=== PATIENT | female | born 1985 | race Caucasian/White ===

== ENCOUNTER 2022-12-28 09:50 | Outpatient (OUT) | payer OTHER, SELFPAY ==
--- NOTE | 2022-12-28 09:53 | US_ITS ---
[address] [address] Patient Name: LARRY COLON MRN: [id number] date: 1985 Sex: F Assigned Patient Location: US Current Patient Location: US Accession/Order Number: [id number] Exam Date: 12/28/2022 09:55 Report Date: 12/28/2022 15:07 At the request of: ISSAC ANN Procedure: US OB >= 14 weeks Fetus EXAMINATION: US OB >= 14 weeks Fetus HISTORY: MISSED MENSES COMPARISON: No relevant comparison available. TECHNIQUE: Transabdominal sonographic examination was performed for obstetrical and evaluation. FINDINGS: Number: 1 Heart Rate: 153.0 bpm H.B. /min Amniotic Fluid Volume: Subjectively normal Placental Location: Anterior Cervix Length: Not measured BIOMETRY: BPD: 5.2 cm 21 weeks 5 days 21 weeks 5 days HC: 19.5 cm 21 weeks 5 days, 21 weeks 5 days AC: 18.2 cm 23 weeks 0 days, 23 weeks 0 days FL: 3.6 cm 21 weeks 4 days , 21 weeks 4 days EFW:489.3 grams; 1 lb. 1 oz. is FL/AC: 20.1 FL/BPD: 70.3 HC/AC: 1.1 GESTATIONAL AGE: Age by EDC: Unknown Age by current US: 22 weeks 0 days PORTILLO by current US: 05/03/2023 PORTILLO by EDC: Unknown US/US OB >= 14 weeks Fetus IMPRESSION: Viable gomez intrauterine gestation measuring 22 weeks 0 days *Reference: [facility] Practice Guideline for the performance of Obstetric Ultrasound Examinations, November 11, 2006. Electronically authenticated by: QUENTIN SOLOMON Date: 12/28/2022 15:07
--- OUTSIDE RECORDS SUMMARY | 2023-03-28 07:57 | XMS_ITS | CCD ---
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 Name Role Phone Nikki Mcgovern Primary Care Provider NIKKI MCGOVERN Primary Care Unavailabl e Nikki Mcgovern PA-C Primary Care Provider Nikki Mcgovern PA-C Primary Care Provider NIKKI MCGOVERN Primary Care Unavailabl e PENNY RITTER Attending Unavailable LILIANA CARROLL Referring Unavail able NIKKI MCGOVERN Primary Care Unavailabl e NIKKI MCGOVERN Primary Care Unavailabl e SULEMA TERAN Attending Unavailable NIKKI MCGOVERN Primary Care Unavailabl e NIKKI MCGOVERN Primary Care Unavailabl e SULEMA TERAN Attending Unavailable NIKKI MCGOVERN Primary Care Physician Yennifer vailable NIKKI MCGOVERN Primary Care Unavailabl e Jose F ANN R Referring Unavailable Jose F ANN R Attending Unavailable Jose F ANN R Admitting Unavailable Jose F ANN R Admitting Unavailable NIKKI MCGOVERN Primary Care Unavailabl e Jose F ANN R Attending Unavailable Jose F ANN R Admitting Unavailable NIKKI MCGOVERN Primary Care Unavailabl e Padmini ANNy R Attending Unavailable DONNELL FINCH Attending Unavailable JOSE F ANN Attending Unavailable JOSE F ANN Attending Unavailable Unavailable Primary Care Provider Unavailabl e SETH, JOSE F R Referring Unavailable Allergies Allergy Classification Reported Allergen(s) Allergy Type Date of Onset Reaction(s) Facility (4 sources) Acetaminophen / oxyCODONE; Translations: [OXYCODONE-ACETAM INOPHEN] Drug Allergy 2 Nausea And Vomiting, Headache [facility] Phone: (4 sources) traMADol; Translations: [TRAMADOL] Drug Allergy 2 [facility] Phone: (1 source) No Known Medication Allergies; Translations: [No Known Medication Allergies] Propensity to adverse reactions (disorder) [facility] Repository Medications Current Medications Medication Drug Class(es) [...] Pain - Moderate, 30 tab(s), Refill(s) 0, [facility] Start Date: 01/22/17 Status: Ordered albuterol HFA [...] BID, # 60 cap(s), Refills(s) 0, Pharmacy: [facility] 5526 Start Date: 01/22/17 Status: Ordered Ethinyl Estradiol [...] Refill(s) 5, Start 3 weeks after delivery, [facility] 530 Start Date: 01/22/17 Status: Ordered 2 ml [...] 20 tab(s), Refills(s) 0, Pharmacy: [facility] Start Date: 04/30/17 Status: Ordered Start: 01-22-2017 take 1 tablet by mario th every eight hours as needed for pain ibuprofen 800 mg Tab 800 mg = 1 tab(s), Oral, q8hr, PRN Pain - Mild, # 40 tab(s), Refills(s) 0, Pharmacy: [facility] 5309 Start Date: 01/22/17 Status: Ordered [...] 0 03/29/2022 04/28/2022 Active Start: 12-15-2021 End: 12-04-2022 take 1 tablet by mouth three times [...] sources) Polyene Antifungal Start: 10-28-2021 nystatin (MYCOSTATIN) 580784 UNIT/GM powder Apply topically 2 times daily [...] Give after delivery of placenta. Prenat w/o B-DxByr-MHE-FA-DHA (PRENAISSANCE PLUS) 28-1-250 MG CAPS (4 sources) Start: 06-03-2019 take 1 tablet by mouth once daily Prenat w/o C-HwZmj-SED-FA-DHA (PRENAISSANCE PLUS) 28-1-250 MG CAPS Take 1 tablet by mouth daily 30 capsule 06/03/2019 Suspended Start: 06-03-2019 take 1 tablet by mario th once daily Prenat w/o G-AyQya-GOG-FA-DHA (PRENAISSANCE PLUS) 28-1-250 MG CAPS Take 1 tablet by mouth daily 30 capsule 06/03/2019 Active Vit-Fe Fumarate-FA ( VITAMIN) 27-0.8 [...] tablet 3 04/09/2017 09/30/2018 Discontinued (LIST CLEANUP) Hg-F1-M09H19-ZW-Fboekn (PRENATE AM PO) (1 source) End: 09-30-2018 Lz-I2-Y68Z77-DR-Wmmppm (PRENATE AM PO) Take by mouth 0 09/30/2018 Discontinued (LIST CLEANUP) Multivitamins with Folic Acid 1 mg oral tablet (3 sources) Start: 07-26-2016 Multivitamins with Folic Acid 1 mg oral tablet 1 tab(s), Oral, Daily, 100 tab(s), Refill(s) 0, [facility] Start Date: 07/26/16 Status: Ordered [...] trimester] Onset: 01-09-2022 Resolved: 04-09-2022 11-02-2019 Episodic Other screening for suspected conditions (not mental disorders or infectious disease) (1 source) Encounter for other specified screening; Translations: [Encounter for other specified screening] Onset: 03-21-2023 Episodic Residual codes; unclassified (16 sources) Sleep [...] ANN FINAL REPORT Dictated: 01/30/2023 1:09 pm Signer Vitor TONEY Signed (Electronic Signature): 01/30/2023 1:09 pm Signed by: Signer Vitor TONEY Transcribed by: GERTRUDE Technologist: VIK Technical Comments [...] Extremities Normal Diaphragm Normal ACI Normal Normal [facility] CHEMISTRYOrdered By: SYSTEM SYSTEM on 01-29-2023 Glucose [Mass/Vol] 157 mg/dL High 55 - 140 mg/dL Remisol Chem Consent for Treatmenton 01-11 Consent for Treatment [id number] .00TIFF [facility] Consent for Treatment [id number] .00TIFF [facility] Gest Scr Glu 1 Hron 01-30-20 23 Glucose [Mass/Vol] 157 mg/dL High 55-140 [facility] Comment on above: Performed By: #### 2 [id number], [id number], 038589103, [id number], 194484164, 137792084, 9358155, 0272379, 9672919 #### [facility] Laboratory [address] [place] [address] Glucose 1h post 50g loadon 1 04-01-2022 Glucose, 1 hr PP 50GM dose 157 [employer] [facility] Physician Orderon 01-29-2023 Physician Order [id number]# 1.00TIFF [facility] Physician Orderon 01-28-2023 Physician Order [id number]#1 .00TIFF Normal [facility] C Urineon 01-13-2023 Bacteria identified [...] Locations R1: This test was performed at: [facility], [address] [place] [address], [address]- , , [facility] Comment on above: Performed By: #### 2 [id number], 80248014, 127119487, 9880716145, 035136874, 144909228, 0568071, 3414298, 4310483 #### [facility] [address] [place] [address] .Interpretation:on HCV Ab IA Ql Comment Invalid Interpretation Code [facility] Comment on above: Result Comment: Not infected with HCV unless early or acute infection is suspected (which may be delayed in an immunocompromised individual), or other evidence exists to indicate HCV infection. Performed at: [facility] [id number] PhD Mariama Zaman Performed By: #### 2 [id number], 41381985, 336613331, 8923340484, 341103017, 764548819, 3454142, 8491070, 7786485 #### [facility] [address] [place] [address] HCV Antibody RFX to Quant PC Johnny 01-12-2023 HCV IgG IA Ql Non-Reactive Invalid Interpretation Code Non Reactive [facility] Comment on above: Result Comment: Perf ormed at: [facility] [address] [id number] PhD Mariama Zaman Performed By: #### 2 [id number], 08698498, 619790407, 4253571724, 065269902, 285637134, 2548712, 5708243, 2650631 #### [facility] [address] [place] [address] HIV Screen 4th Generation wR fxon 01-12-2023 HIV 1+2 Ab+HIV1 p24 Ag IA Ql Non-Reactive Invalid Interpretation Code Non Reactive [facility] Comment on above: Result Comment: HIV Negative HIV-1/HIV-2 antibodies and HIV-1 p24 antigen were NOT detected. There is no laboratory evidence of HIV infection. Performed at: [address] [id number] PhD Mariama Zaman Performed By: #### 2 [id number], 22986477, 140123315, 1417880105, 292667236, 078458709, 7467187, 2278950, 7104505 #### [facility] [address] [place] [address] Hep Bs Agon 01-12-2023 HBV surface Ag IA Ql Negative Invalid Interpretation Code Negative [facility] Comment on above: Result Comment: Perf ormed at: [address] [id number] PhD Mariama Zaman Performed By: #### 2 [id number], 88322584, 877441098, 7730847775, 862029669, 416124790, 1038354, 1387777, 5538100 #### [facility] [address] [place] [address] RPR with Conf Rfxon 01-13-20 23 Reagin Ab RPR Ql (S) Non-Reactive Invalid Interpretation Code Non Reactive [facility] Comment on above: Result Comment: Perf ormed at: [address] [id number] PhD Mariama Zaman Performed By: #### 2 [id number], 27465547, 395615983, 2390470471, 146060173, 963024585, 3640594, 0582462, 1428691 #### [facility] [address] [place] [address] Rubella IgGon 01-12-2023 Rubella virus IgG Qn (S) 5.68 [IU]/mL Invalid Interpretation Code Immune >0.99 [facility] Comment on above: Result Comment: Non- immune <0.90 Equivocal 0.90 - 0.99 Immune >0.99 Performed at: [address] [id number] PhD Mariama Zaman Performed By: #### 2 [id number], 08277247, 854525141, 9360616353, 338651953, 669684011, 1332517, 9455429, 9374579 #### [facility] [address] [place] [address] ABO/Rhon 01-11-2023 ABO/Rh Positive Invalid Interpretation Code [facility] Comment on above: Performed By: #### 2 [id number], 63268469, 964350508, 3209136066, 168574649, 169644025, 1472985, 1721811, 2656870 #### [facility] [address] [place] [address] ABSCon 01-11-2023 ABSC Gel Interp Negative Normal [facility] Comment on above: Performed By: #### 2 242293876, 73651807, 085922801, 2281418529, 795706992, 566615518, 3662291, 0711128, 2785824 #### [facility] [address] [place] [address] BLOOD BANKOrdered By: Dylan Lemons on 01-11-2023 ABO/Rh Interp Positive Invalid Interpretation Code [facility] BB Subsection ABSC Gel Interp Negative (01/11/23 10:00 AM) Normal [facility] BB Subsection CBC w/IndicesOrdered By: López Jorgensen on 01-11-2023 Erythrocyte distribution width (RBC) [Ratio] 13.4 % Normal 10.9-14.2 [facility] [employer] Comment on above: Performed By: #### 2 [id number], 47918475, 349231737, 2914412700, 425123794, 452272294, 7864225, 7386869, 9154419 #### [facility] [address] [place] [address] Hematocrit (Bld) [Volume fraction] 34.4 % [facility] [employer] Comment on above: Performed By: #### 2 [id number], 81976537, 028548098, 0079211568, 675668652, 754095254, 4236090, 3698316, 0093886 #### [facility] [address] [place] [address] Hemoglobin (Bld) [Mass/Vol] 11.7 g/dL [facility] [employer] Comment on above: Performed By: #### 2 [id number], 10380548, 240070967, 8735866360, 569263642, 247263480, 8620166, 3574616, 3402981 #### [facility] [address] [place] [address] MCH (RBC) [Entitic mass] 31.7 pg Normal 27.0-34.0 [facility] [employer] Comment on above: Performed By: #### 2 [id number], 50796154, 601488779, 4479969543, 564260896, 330007210, 1419048, 2618955, 7772446 #### [facility] [address] [place] [address] MCHC (RBC) [Mass/Vol] 33.9 g/dL Normal 31.4-36.0 [facility] [employer] Comment on above: Performed By: #### 2 455596792, 59573809, 828233796, 1803840544, 570503432, 805027868, 3600158, 5282168, 1283548 #### [facility] [address] [place] [address] MCV (RBC) [Entitic vol] 93.3 fL Normal 80.0-100.0 [facility] [employer] Comment on above: Performed By: #### 2 608684948, 29607925, 184283550, 8409580479, 664252615, 776388532, 2908780, 8398215, 0956015 #### [facility] [address] [place] [address] Platelet mean volume (Bld) [Entitic vol] 8.0 fL Normal 6.4-10.8 [facility] [employer] Comment on above: Performed By: #### 2 985929011, 80393503, 965978445, 2778701972, 640091568, 781768570, 6727167, 0001501, 7151699 #### [facility] [address] [place] [address] Platelets (Bld) [#/Vol] 171.0 E9/L Normal 150.0-500.0 [facility] [employer] Comment on above: Performed By: #### 2 288723827, 03010526, 903857187, 8680891572, 256097839, 454342703, 0507258, 0597471, 2340969 #### [facility] [address] [place] [address] RBC (Bld) [#/Vol] 3.7 E12/L Low 4.3-5.9 [facility] [employer] Comment on above: Performed By: #### 2 277409122, 59748914, 169432109, 6348472701, 115431076, 538639156, 5459330, 6307085, 3894885 #### [facility] [address] [place] [address] WBC corrected for nucl RBC Auto (Bld) [#/Vol] 11.7 E9/L High 4.0-11.0 [facility] [employer] Comment on above: Performed By: #### 2 669335530, 63614613, 326048410, 4870804965, 045394976, 149451824, 2179765, 0157417, 2237043 #### [facility] [address] [place] [address] CBC without diffon Platelets (Bld) [#/Vol] 171 10*3/uL [facility] Consent for Treatmenton Consent for Treatment [id number] .00TIFF Normal [facility] HIV 1&2 AB/AG Screen (P24 AG )on 01-11-2023 HIV 1&2 AB/AG Non-Reactive [facility] Hepatitis B surface antigeno n 01-11-2023 Hepatitis B Surface Antigen Negative [facility] Hepatitis C(HCV) Ab w/ Refle x to PCRon 01-11-2023 HCV Ab Ql (S) Non-Reactive [facility] [id number] By: Liliana Dumont on 01-11-2023 HbA1c (Bld) [Mass fraction] 4.9 % Normal <=5.9 [facility] [employer] Comment on above: Performed By: #### 2 [id number], 72529082, 342668142, 7501326310, 116427547, 809368789, 0806897, 0767036, 4957284 #### [facility] [address] [place] [address] No Panel Informationon 01-11 [facility] Physician Orderon 01-11-2023 Physician Order [id number] .00TIFF Normal [facility] Rubella IGG immune statuson 01-11-2023 Rubella immune IgG 5.68 [facility] Syphilis Total(Unknown Syphi lis Status)on 01-11-2023 Syphilis Non-Reactive [facility] TSHon 01-11-2023 Thyroid Stimulating (3Rd Generation) Hormone/ Tsh 1.30 [facility] TSHOrdered By: SYSTEM SYSTEM on 01-11-2023 TSH Qn 1.30 m[IU]/L Normal 0.34-5.60 [facility] Remisol Comment on above: Performed By: #### 2 [id number], 25559844, 693267571, 8393091349, 038995436, 926772577, 1541851, 3914291, 1995183 #### [place] [facility] [address] [place] [address] Type and screenon 01-11-2023 Abo/Rh(D) Positive [employer] Basic Metabolic Panelon 07-13 Calcium [Mass/Vol] 9.1 mg/dL Normal 8.5-9.9 [facility] Comment on above: Performed By: #### C BCWD #### [facility] [address] [place] [address] Chloride [Moles/Vol] 105 mmol/L Normal 95-107 [facility] Comment on above: Performed By: #### C BCWD #### [facility] [address] [place] [address] CO2 [Moles/Vol] 22 mmol/L Normal 20-31 [facility] Comment on above: Performed By: #### C BCWD #### [facility] [address] [place] [address] Creatinine [Mass/Vol] 0.59 mg/dL Normal 0.50-0.90 [facility] Comment on above: Performed By: #### C BCWD #### [facility] [address] [place] [address] GFR >60.0 Normal >60 [facility] Comment on above: Result Comment: Christina [...] secretion. Performed By: #### C BCWD #### [facility] [address] [place] [address] Glucose [Mass/Vol] 110 mg/dL Critically high 70-99 M [facility] Comment on above: Performed By: #### C BCWD #### [facility] [address] [place] [address] Potassium [Moles/Vol] 4.0 mmol/L Normal 3.4-4.9 [facility] Comment on above: Performed By: #### C BCWD #### [facility] [address] [place] [address] Sodium [Moles/Vol] 139 mmol/L Normal 135-144 [facility] Comment on above: Performed By: #### C BCWD #### [facility] [address] [place] [address] Urea nitrogen [Mass/Vol] 12 mg/dL Normal 6-20 [facility] Comment on above: Performed By: #### C BCWD #### [facility] [address] [place] [address] Anion gap [Moles/Vol] 12 mmol/L Normal 9-15 [facility] Comment on above: Performed By: #### C BCWD #### [facility] [address] [place] [address] CBC With Platelet and Differ entialon 07-31-2022 Abs Imm Granulocytes 0.0 K/uL Normal [facility] Comment on above: Performed By: #### C BCWD #### [facility] [address] [place] [address] Basophils (Bld) [#/Vol] 0.0 10*3/uL Normal 0.0-0.1 [facility] Comment on above: Performed By: #### C BCWD #### [facility] [address] [place] [address] Basophils/100 WBC (Bld) 0.4 % Normal 0.1-1.2 [facility] Comment on above: Performed By: #### C BCWD #### [facility] [address] [place] [address] Eosinophils (Bld) [#/Vol] 0.2 10*3/uL Normal 0.0-0.4 [facility] Comment on above: Performed By: #### C BCWD #### [facility] [address] [place] [address] Eosinophils/100 WBC (Bld) 2.6 % Normal 0.7-5.8 [facility] Comment on above: Performed By: #### C BCWD #### [facility] [address] [place] [address] Erythrocyte distribution width (RBC) [Ratio] 12.6 % Normal 11.7-14.4 [facility] Comment on above: Performed By: #### C BCWD #### [facility] [address] [place] [address] Hematocrit (Bld) [Volume fraction] 39.6 % Normal 37.0-47.0 [facility] Comment on above: Performed By: #### C BCWD #### [facility] [address] [place] [address] Hemoglobin (Bld) [Mass/Vol] 13.5 g/dL Normal 11.2-15.7 [facility] Comment on above: Performed By: #### C BCWD #### [facility] [address] [place] [address] Imm Granulocytes 0.3 % Normal [facility] Comment on above: Performed By: #### C BCWD #### [facility] [address] [place] [address] Lymphocytes (Bld) [#/Vol] 1.8 10*3/uL Normal 1.2-3.7 [facility] Comment on above: Performed By: #### C BCWD #### [facility] [address] [place] [address] Lymphocytes/100 WBC (Bld) 25.0 % Normal [facility] Comment on above: Performed By: #### C BCWD #### [facility] [address] [place] [address] MCH (RBC) [Entitic mass] 31.9 pg Normal 25.6-32.2 [facility] Comment on above: Performed By: #### C BCWD #### [facility] [address] [place] [address] MCHC 34.1 % Normal 32.2-35.5 [facility] Comment on above: Performed By: #### C BCWD #### [facility] [address] [place] [address] MCV (RBC) [Entitic vol] 93.6 fL Normal 79.4-94.8 [facility] Comment on above: Performed By: #### C BCWD #### [facility] [address] [place] [address] Monocytes (Bld) [#/Vol] 0.4 10*3/uL Normal 0.2-0.9 [facility] Comment on above: Performed By: #### C BCWD #### [facility] [address] [place] [address] Monocytes/100 WBC (Bld) 5.7 % Normal 4.7-12.5 [facility] Comment on above: Performed By: #### C BCWD #### [facility] [address] [place] [address] Neutrophils (Bld) [#/Vol] 4.9 10*3/uL Normal 1.6-6.1 [facility] Comment on above: Performed By: #### C BCWD #### [facility] [address] [place] [address] Neutrophils/100 WBC (Bld) 66.0 % Normal 34.0-71.1 [facility] Comment on above: Performed By: #### C BCWD #### [facility] [address] [place] [address] Platelets (Bld) [#/Vol] 193 10*3/uL Normal 182-369 [facility] Comment on above: Performed By: #### C BCWD #### [facility] [address] [place] [address] RBC (Bld) [#/Vol] 4.23 10*6/uL Normal 3.93-5.22 [facility] Comment on above: Performed By: #### C BCWD #### [facility] [address] [place] [address] WBC (Bld) [#/Vol] 7.4 10*3/uL Normal 4.0-10.0 [facility] Comment on above: Performed By: #### C BCWD #### [facility] [address] [place] [address] UR HCG Qualitativeon 023 Beta HCG ( test) Ql (U) Negative Normal Detects [facility] Comment on above: Performed By: #### C BCWD #### [facility] [address] [place] [address] Urinalysis, reflex to cultur minoo 07-31-2022 Urine Reflexed to Culture Not Indicated Normal [facility] Comment on above: Performed By: #### U AR #### [facility] [address] [place] [address] Bilirubin Ql (U) Negative Normal Negative [facility] Comment on above: Performed By: #### U AR #### [facility] [address] [place] [address] Clarity (U) Clear Normal Clear [facility] Comment on above: Performed By: #### U AR #### [facility] [address] [place] [address] Color (U) Yellow Normal Straw/[place] [facility] Comment on above: Performed By: #### U AR #### [facility] [address] [place] [address] Glucose Ql (U) Negative Normal Negative [facility] Comment on above: Performed By: #### U AR #### [facility] [address] [place] [address] Hemoglobin Ql (U) Large Normal Negative [facility] Comment on above: Performed By: #### U AR #### [facility] [address] [place] [address] Ketones Ql (U) Negative Normal Negative [facility] Comment on above: Performed By: #### U AR #### [facility] [address] [place] [address] Leukocyte esterase Test strip Ql (U) Negative Normal Negative [facility] Comment on above: Performed By: #### U AR #### [facility] [address] [place] [address] Nitrite Ql (U) Negative Normal Negative [facility] Comment on above: Performed By: #### U AR #### [facility] [address] [place] [address] pH (U) 5.5 [pH] Normal 5.0-9.0 [facility] Comment on above: Performed By: #### U AR #### [facility] [address] [place] [address] Protein Ql (U) Negative Normal Negative [facility] Comment on above: Performed By: #### U AR #### [facility] [address] [place] [address] Specific gravity (U) [Rel density] 1.015 Normal 1.005-1.03 [facility] Comment on above: Performed By: #### U AR #### [facility] [address] [place] [address] Urobilinogen Qn (U) 0.2 {Ginger'U}/dL Normal < 2.0 [facility] Comment on above: Performed By: #### U AR #### [facility] [address] [place] [address] Urine Microscopicon 08-01-19 23 Epithelial cells LM Ql (Urine sed) 3-5 Normal [facility] Comment on above: Performed By: #### U KAREEM #### [facility] [address] [place] [address] Urine Bacteria FEW Abnormal Negative [facility] Comment on above: Performed By: #### U KAREEM #### [facility] [address] [place] [address] Urine RBC 5-10 Abnormal 0-2 [facility] Comment on above: Performed By: #### U KAREEM #### [facility] [address] [place] [address] Urine WBC 0-2 Normal 0-5 [facility] Comment on above: Performed By: #### U KAREEM #### [facility] [address] [place] [address] Culture, Throaton 04-11-2022 Culture, Throat ORDER#: [id number] ORDERED BY: LILIANA CARROLL SOURCE: Throat Throat COLLECTED: 04/11/22 17:53 ANTIBIOTICS AT [place].: RECEIVED : 04/11/22 21:00 Culture, Throat FINAL 04/14/22 10:27 Cult,Throat: Oral to, negative for Group A Strep and other beta Cult,Throat: hemolytic streptococci Performed at [address] [address] ([phone] Normal [facility] Comment on above: Performed By: #### C BCWD #### [facility] [address] [place] [address] XR SHOULDER LEFT (MIN 2 VIEW S)on [...] Vitor Riojas MD 11/29/[address] [facility] Bacterial susceptibility [place] [facility] [place] Bacterial susceptibility panel KAREEM (Isol) ORDER#: [id number] ORDERED BY: SPRING OROZCO SOURCE: Incision COLLECTED: 10/28/21 16:45 ANTIBIOTICS AT [place].: RECEIVED : 10/28/21 22:09 Culture, Wound Aerobic, Anaerobic FINAL 11/03/21 07:50 Direct Exam: NO NEUTROPHILS SEEN Direct Exam: NO BACTERIA SEEN Cult,Aerobe/Anaerobe: Mixed skin to Cult,Aerobe/Anaerobe: No anaerobic organisms isolated at 5 days. Performed at [address] [address] Acinetobacter species LIGHT GROWTH Acinetobacter baumannii LIGHT GROWTH Acineto sp. A. baumannii ANTIBIOTICS KAREEM Interp KAREEM Interp Ampicillin/Sulbactam <=2 S >=32 R Ceftriaxone 16 I 16 I Ciprofloxacin <=0.25 S <=0.25 S Gentamicin <=1 S <=1 S Tobramycin <=1 S <=1 S S=SUSCEPTIBLE I=INTERMEDIATE R=RESISTANT Normal [facility] Comment on above: Performed By: #### 5 [id number] #### [facility] [address] [place] [address] Bacterial susceptibility panel KAREEM (Isol) ORDER#: [id number] ORDERED BY: SPRING OROZCO SOURCE: Incision COLLECTED: 10/28/21 16:45 ANTIBIOTICS AT [place].: RECEIVED : 10/28/21 22:09 Culture, Wound Aerobic, Anaerobic PRELIM 11/03/21 07:15 Direct Exam: NO NEUTROPHILS SEEN Direct Exam: NO BACTERIA SEEN Cult,Aerobe/Anaerobe: Mixed skin to Cult,Aerobe/Anaerobe: No anaerobic organisms isolated at 5 days. Performed at [facility] [address] [place] [address] [place], [place] [id number] ([phone] Acinetobacter species LIGHT GROWTH Acineto sp. ANTIBIOTICS KAREEM Interp Ampicillin/Sulbactam <=2 S Ceftriaxone 16 I Ciprofloxacin <=0.25 S Gentamicin <=1 S Tobramycin <=1 S S=SUSCEPTIBLE I=INTERMEDIATE R=RESISTANT Normal [facility] Comment on above: Performed By: #### C BCWD #### [facility] [address] [place] [address] CBC With Platelet and Differ entialon 10-28-2021 Abs Imm Granulocytes 0.0 K/uL Normal [facility] Comment on above: Performed By: #### C BCWD #### [facility] [address] [place] [address] Basophils (Bld) [#/Vol] 0.0 10*3/uL Normal 0.0-0.1 [facility] Comment on above: Performed By: #### C BCWD #### [facility] [address] [place] [address] Basophils/100 WBC (Bld) 0.1 % Normal 0.1-1.2 [facility] Comment on above: Performed By: #### C BCWD #### [facility] [address] [place] [address] Eosinophils (Bld) [#/Vol] 0.3 10*3/uL Normal 0.0-0.4 [facility] Comment on above: Performed By: #### C BCWD #### [facility] [address] [place] [address] Eosinophils/100 WBC (Bld) 3.1 % Normal 0.7-5.8 [facility] Comment on above: Performed By: #### C BCWD #### [facility] [address] [place] [address] Erythrocyte distribution width (RBC) [Ratio] 12.8 % Normal 11.7-14.4 [facility] Comment on above: Performed By: #### C BCWD #### [facility] [address] [place] [address] Hematocrit (Bld) [Volume fraction] 40.9 % Normal 37.0-47.0 [facility] Comment on above: Performed By: #### C BCWD #### [facility] [address] [place] [address] Hemoglobin (Bld) [Mass/Vol] 13.6 g/dL Normal 11.2-15.7 [facility] Comment on above: Performed By: #### C BCWD #### [facility] [address] [place] [address] Imm Granulocytes 0.2 % Normal [facility] Comment on above: Performed By: #### C BCWD #### [facility] [address] [place] [address] Lymphocytes (Bld) [#/Vol] 1.8 10*3/uL Normal 1.2-3.7 [facility] Comment on above: Performed By: #### C BCWD #### [facility] [address] [place] [address] Lymphocytes/100 WBC (Bld) 16.5 % Normal [facility] Comment on above: Performed By: #### C BCWD #### [facility] [address] [place] [address] MCH (RBC) [Entitic mass] 31.1 pg Normal 25.6-32.2 [facility] Comment on above: Performed By: #### C BCWD #### [facility] [address] [place] [address] MCHC 33.3 % Normal 32.2-35.5 [facility] Comment on above: Performed By: #### C BCWD #### [facility] [address] [place] [address] MCV (RBC) [Entitic vol] 93.4 fL Normal 79.4-94.8 [facility] Comment on above: Performed By: #### C BCWD #### [facility] [address] [place] [address] Monocytes (Bld) [#/Vol] 0.6 10*3/uL Normal 0.2-0.9 [facility] Comment on above: Performed By: #### C BCWD #### [facility] [address] [place] [address] Monocytes/100 WBC (Bld) 5.2 % Normal 4.7-12.5 [facility] Comment on above: Performed By: #### C BCWD #### [facility] [address] [place] [address] Neutrophils (Bld) [#/Vol] 7.9 10*3/uL Critically high 1.6-6.1 [facility] Comment on above: Performed By: #### C BCWD #### [facility] [address] [place] [address] Neutrophils/100 WBC (Bld) 74.9 % Critically high 34.0-71.1 [facility] Comment on above: Performed By: #### C BCWD #### [facility] [address] [place] [address] Platelets (Bld) [#/Vol] 192 10*3/uL Normal 182-369 [facility] Comment on above: Performed By: #### C BCWD #### [facility] [address] [place] [address] RBC (Bld) [#/Vol] 4.38 10*6/uL Normal 3.93-5.22 [facility] Comment on above: Performed By: #### C BCWD #### [facility] [address] [place] [address] WBC (Bld) [#/Vol] 10.6 10*3/uL Critically high 4.0-10.0 [facility] Comment on above: Performed By: #### C BCWD #### [facility] [address] [place] [address] CBC with Auto Differentialon 10-28-2021 Basophils (Bld) [#/Vol] 0.0 10*3/uL 0 - 0.1 K/uL [facility] Basophils/100 WBC (Bld) 0.1 % 0.1 - 1.2 % [facility] Eosinophils (Bld) [#/Vol] 0.3 10*3/uL 0 - 0.4 K/uL [facility] Eosinophils/100 WBC (Bld) 3.1 % 0.7 - 5.8 % [facility] Hematocrit (Bld) [Volume fraction] 40.9 % 37 - 47 % [facility] Hemoglobin (Bld) [Mass/Vol] 13.6 g/dL 11.2 - 15.7 g/dL [facility] Immature granulocytes (Bld) [#/Vol] 0.0 10*3/uL [facility] Immature granulocytes/100 WBC (Bld) 0.2 % [facility] Interpretation and review of laboratory results Abnormal [facility] Lymphocytes (Bld) [#/Vol] 1.8 10*3/uL 1.2 - 3.7 K/uL [facility] Lymphocytes/100 WBC (Bld) 16.5 % [facility] MCH (RBC) [Entitic mass] 31.1 pg 25.6 - 32.2 pg [facility] MCHC (RBC) [Mass/Vol] 33.3 % 32.2 - 35.5 % [facility] MCV (RBC) [Entitic vol] 93.4 fL 79.4 - 94.8 fL [facility] Monocytes (Bld) [#/Vol] 0.6 10*3/uL 0.2 - 0.9 K/uL [facility] Monocytes/100 WBC (Bld) 5.2 % 4.7 - 12.5 % [facility] Neutrophils Absolute 7.9 K/uL High 1.6 - 6 .1 K/uL [facility] Neutrophils/100 WBC (Bld) 74.9 % High 34 - 71.1 % [facility] Platelet distribution width (Bld) [Ratio] 12.8 % 11.7 - 14.4 % [facility] Platelets (Bld) [#/Vol] 192 10*3/uL 182 - 369 K/uL [facility] RBC (Bld) [#/Vol] 4.38 10*6/uL [facility] WBC (Bld) [#/Vol] 10.6 10*3/uL High 4 - 10 K/uL [facility] CT ABDOMEN PELVIS W IV CONTR [...] Melodie Ocampo MD 10/28/21 Final result Normal [facility] CT ABDOMEN PELVIS W IV CONTR AST Additional Contrast? Noneon 10-28-2021 No acute abdominopelvic abnormality. [facility] EXAMINATION: CT OF THE ABDOMEN AND [...] stranding or fluid at the surgical site. [facility] Melodie Ocampo MD - 10/28/2021 EXAMINATION: [...] surgical site. IMPRESSION: No acute abdominopelvic abnormality. [facility] Phone: Radiology Study observation (narrative) [facility] [employer] [facility] Phone: CT ABDOMEN PELVIS W IV CONTR AST Additional Contrast? NoneOrdered By: Melodie Ocampo on 10-28-2021 [facility] [employer] [facility] Phone: Comprehensive Metabolic Pane l reflex Mgon 10-28-2021 Albumin [Mass/Vol] 4.4 g/dL Normal 3.5-4.6 [facility] Comment on above: Performed By: #### C MPX #### [facility] [address] [place] [address] ALP [Catalytic activity/Vol] 118 U/L Normal 40-130 [facility] Comment on above: Performed By: #### C MPX #### [facility] [address] [place] [address] ALT [Catalytic activity/Vol] 6 U/L Normal 0-33 [facility] Comment on above: Performed By: #### C MPX #### [facility] [address] [place] [address] Anion gap [Moles/Vol] 11 mmol/L Normal 9-15 [facility] Comment on above: Performed By: #### C MPX #### [facility] [address] [place] [address] AST [Catalytic activity/Vol] 8 U/L Normal 0-35 [facility] Comment on above: Performed By: #### C MPX #### [facility] [address] [place] [address] Bilirubin [Mass/Vol] 0.4 mg/dL Normal 0.2-0.7 [facility] Comment on above: Performed By: #### C MPX #### [facility] [address] [place] [address] Calcium [Mass/Vol] 9.7 mg/dL Normal 8.5-9.9 [facility] Comment on above: Performed By: #### C MPX #### [facility] [address] [place] [address] Chloride [Moles/Vol] 104 mmol/L Normal 95-107 [facility] Comment on above: Performed By: #### C MPX #### [facility] [address] [place] [address] CO2 [Moles/Vol] 23 mmol/L Normal 20-31 [facility] Comment on above: Performed By: #### C MPX #### [facility] [address] [place] [address] Creatinine [Mass/Vol] 0.60 mg/dL Normal 0.50-0.90 [facility] Comment on above: Performed By: #### C MPX #### [facility] [address] [place] [address] GFR >60.0 Normal >60 [facility] Comment on above: Result Comment: >60 mL/min/1.73m2 EGFR, calc. for ages 18 and older using the MDRD formula (not corrected for weight), is valid for stable renal function. Performed By: #### C MPX #### [facility] [address] [place] [address] GFR/1.73 sq M.predicted among blacks MDRD (S/P/Bld) [Vol rate/Area] mL/min/{1.73_m2} Normal >60 [facility] Comment on above: Result Comment: >60 mL/min/1.73m2 EGFR, calc. for ages 18 and older using the MDRD formula (not corrected for weight), is valid for stable renal function. Performed By: #### C MPX #### [facility] [address] [place] [address] Globulin (S) [Mass/Vol] 3.1 g/dL Normal 2.3-3.5 [facility] Comment on above: Performed By: #### C MPX #### [facility] [address] [place] [address] Glucose [Mass/Vol] 95 mg/dL Normal 70-99 [facility] Comment on above: Performed By: #### C MPX #### [facility] [address] [place] [address] Magnesium [Moles/Vol] 4.2 mmol/L Normal 3.4-4.9 [facility] Comment on above: Performed By: #### C MPX #### [facility] [address] [place] [address] Protein [Mass/Vol] 7.5 g/dL Normal 6.3-8.0 [facility] Comment on above: Performed By: #### C MPX #### [facility] [address] [place] [address] Sodium [Moles/Vol] 138 mmol/L Normal 135-144 [facility] Comment on above: Performed By: #### C MPX #### [facility] [address] [place] [address] Urea nitrogen [Mass/Vol] 14 mg/dL Normal 6-20 [facility] Comment on above: Performed By: #### C MPX #### [facility] [address] [place] [address] Comprehensive Metabolic Pane l w/ Reflex to [...] [facility] CO2 [Moles/Vol] 23 mmol/L [facility] Creatinine [Mass/Vol] 0.6 mg/dL 0.5 - 0.9 [...] [facility] Sodium [Moles/Vol] 138 mmol/L [facility] Urea nitrogen (BldV) [Mass/Vol] 14 mg/dL 6 - 20 mg/dL [facility] Culture, Wound AerobicShen 10-28-2021 Culture, Wound Aerobic, Anaerobic ORDER#: [id number] ORDERED BY: ERNESTO, SPRING SOURCE: Incision COLLECTED: 10/28/21 16:45 ANTIBIOTICS AT [place].: RECEIVED : 10/28/21 22:09 Culture, Wound Aerobic, Anaerobic PRELIM 11/01/21 08:12 Direct Exam: NO NEUTROPHILS SEEN Direct Exam: NO BACTERIA SEEN Cult,Aerobe/Anaerobe: GRAM NEGATIVE RODS Cult,Aerobe/Anaerobe: LIGHT GROWTH Cult,Aerobe/Anaerobe: Mixed skin to Cult,Aerobe/Anaerobe: No anaerobic organisms isolated at 3 days. Performed at [address] [address] ([phone] Normal [facility] Comment on above: Performed By: #### I CWAN #### [facility] [address] [facility] [address] , Urineon 2 Beta HCG ( test) Ql (U) Negative Detects HCG level >20 MIU/mL [facility] UR HCG Qualitativeon 022 Beta HCG ( test) Ql (U) Negative Normal Detects HC [facility] Comment on above: Performed By: #### C BCWD #### [facility] [address] [facility] [address] Urinalysis with Reflex to Cu ltureon 10-28-2021 Bilirubin Urine Negative Negative [facility] SEC [facility] Blood, Urine Negative Negative [facility] Clarity, UA Clear Clear [facility] Color, UA Yellow Straw/Yellow [facility] Glucose, Ur Negative Negative mg/dL [facility] Ketones Ql (U) Negative Negative mg/dL [facility] Leukocyte esterase Test strip Ql (U) Negative Negative [facility] Nitrite, Urine Negative Negative [facility] pH, UA 5.5 5 - 9 [facility] Protein, UA Negative Negative mg/dL [facility] Specific [place], UA 1.015 1.005 - 1.03 [facility] Urine Reflex to Culture Not Indicated [facility] Urobilinogen, Urine 0.2 NINF [facility] Urinalysis, reflex to cultur minoo 10-28-2021 Bilirubin Ql (U) Negative Normal Negative [facility] Comment on above: Performed By: #### U AR #### [facility] [address] [place] [address] Clarity (U) Clear Normal Clear [facility] Comment on above: Performed By: #### U AR #### [facility] [address] [place] [address] Color (U) Yellow Normal Straw/[place] [facility] Comment on above: Performed By: #### U AR #### [facility] [address] [place] [address] Glucose Ql (U) Negative Normal Negative [facility] Comment on above: Performed By: #### U AR #### [facility] [address] [place] [address] Hemoglobin Ql (U) Negative Normal Negative [facility] Comment on above: Performed By: #### U AR #### [facility] [address] [place] [address] Ketones Ql (U) Negative Normal Negative [facility] Comment on above: Performed By: #### U AR #### [facility] [address] [place] [address] Leukocyte esterase Test strip Ql (U) Negative Normal Negative [facility] Comment on above: Performed By: #### U AR #### [facility] [address] [place] [address] Nitrite Ql (U) Negative Normal Negative [facility] Comment on above: Performed By: #### U AR #### [facility] [address] [place] [address] pH (U) 5.5 [pH] Normal 5.0-9.0 [facility] Comment on above: Performed By: #### U AR #### [facility] [address] [place] [address] Protein Ql (U) Negative Normal Negative [facility] Comment on above: Performed By: #### U AR #### [facility] [address] [place] [address] Specific gravity (U) [Rel density] 1.015 Normal 1.005-1.03 [facility] Comment on above: Performed By: #### U AR #### [facility] [address] [place] [address] Urine Reflexed to Culture Not Indicated Normal [facility] Comment on above: Performed By: #### U AR #### [facility] [address] [place] [address] Urobilinogen Qn (U) 0.2 {Ginger'U}/dL Normal < 2.0 [facility] Comment on above: Performed By: #### U AR #### [facility] [address] [place] [address] Allergen, Food, Comprehensiv e Profile 08-31-2021 Allergen, Food, Barley IgE <0.[address] [facility] Allergen, Food, Beef IgE <0.10 [facility] Allergen, Food, Cabbage <0.10 [facility] Allergen, Food, Carrot <0.10 [facility] Allergen, Food, Chicken <0.10 [facility] Allergen, Food, Codfish IgE <0.10 [facility] Allergen, Food, [place] IgE <0.10 [facility] Allergen, Food, Crab IgE <0.10 [facility] Allergen, Food, Egg White <0.10 [facility] Allergen, Food, Grape IgE <0.10 [facility] Allergen, Food, Lettuce IgE <0.10 [facility] Allergen, Food, Milk (Cow) IgE <0.10 [facility] Allergen, Food, [place] <0.10 [facility] Allergen, Food, Oat IgE <0.10 [facility] Allergen, Food, [place] IgE <0.10 [facility] Allergen, Food, Peanut IgE <0.10 [facility] Allergen, Food, Pepper C. annuum IgE <0.10 [facility] Allergen, Food, Pork IgE <0.[address] [facility] Comment on above: Result Comment: [facility] [address] [place], [place] [id number] ([phone] Allergen, Food, Potato <0.[address] [facility] Allergen, Food, Rice IgE <0.[address] [facility] Allergen, Food, [place] IgE <0.[address] [facility] Allergen, Food, Shrimp IgE <0.[address] [facility] Allergen, Food, Soybean IgE <0.[address] [facility] Allergen, Food, Tomato IgE <0.[address] [facility] Allergen, Food, Tuna IgE <0.[address] [facility] Allergen, Food, Wheat IgE <0.[address] [facility] Comment on above: Result Comment: ALLERGEN, [...] even anaphylaxis. Immunoglobulin E 53 IU/mL Normal [facility] Comment on above: Result Comment: [facility] [address] [place], [place] [id number] ([phone] CBC With Platelet and Differ entialon 08-21-2021 Abs Imm Granulocytes 0.0 K/uL Normal [facility] Comment on above: Performed By: #### C BCWD #### [facility] [address] [place] [address] 010-23 Basophils (Bld) [#/Vol] 0.0 10*3/uL Normal 0.0-0.1 [facility] Comment on above: Performed By: #### C BCWD #### [facility] [address] [place] [address] Basophils/100 WBC (Bld) 0.3 % Normal 0.1-1.2 [facility] Comment on above: Performed By: #### C BCWD #### [facility] [address] [place] [address] Eosinophils (Bld) [#/Vol] 0.2 10*3/uL Normal 0.0-0.4 [facility] Comment on above: Performed By: #### C BCWD #### [facility] [address] [place] [address] Eosinophils/100 WBC (Bld) 2.4 % Normal 0.7-5.8 [facility] Comment on above: Performed By: #### C BCWD #### [facility] [address] [place] [address] Erythrocyte distribution width (RBC) [Ratio] 12.6 % Normal 11.7-14.4 [facility] Comment on above: Performed By: #### C BCWD #### [facility] [address] [place] [address] Hematocrit (Bld) [Volume fraction] 41.7 % Normal 37.0-47.0 [facility] Comment on above: Performed By: #### C BCWD #### [facility] [address] [place] [address] Hemoglobin (Bld) [Mass/Vol] 13.6 g/dL Normal 11.2-15.7 [facility] Comment on above: Performed By: #### C BCWD #### [facility] [address] [place] [address] Imm Granulocytes 0.3 % Normal [facility] Comment on above: Performed By: #### C BCWD #### [facility] [address] [place] [address] Lymphocytes (Bld) [#/Vol] 2.2 10*3/uL Normal 1.2-3.7 [facility] Comment on above: Performed By: #### C BCWD #### [facility] [address] [place] [address] Lymphocytes/100 WBC (Bld) 25.3 % Normal [facility] Comment on above: Performed By: #### C BCWD #### [facility] [address] [place] [address] MCH (RBC) [Entitic mass] 30.8 pg Normal 25.6-32.2 [facility] Comment on above: Performed By: #### C BCWD #### [facility] [address] [place] [address] MCHC 32.6 % Normal 32.2-35.5 [facility] Comment on above: Performed By: #### C BCWD #### [facility] [address] [place] [address] MCV (RBC) [Entitic vol] 94.6 fL Normal 79.4-94.8 [facility] Comment on above: Performed By: #### C BCWD #### [facility] [address] [place] [address] Monocytes (Bld) [#/Vol] 0.4 10*3/uL Normal 0.2-0.9 [facility] Comment on above: Performed By: #### C BCWD #### [facility] [address] [place] [address] Monocytes/100 WBC (Bld) 4.4 % Low 4.7-12.5 [facility] Comment on above: Performed By: #### C BCWD #### [facility] [address] [place] [address] Neutrophils (Bld) [#/Vol] 5.8 10*3/uL Normal 1.6-6.1 [facility] Comment on above: Performed By: #### C BCWD #### [facility] [address] [place] [address] Neutrophils/100 WBC (Bld) 67.3 % Normal 34.0-71.1 [facility] Comment on above: Performed By: #### C BCWD #### [facility] [address] [place] [address] Platelets (Bld) [#/Vol] 200 10*3/uL Normal 182-369 [facility] Comment on above: Performed By: #### C BCWD #### [facility] [address] [place] [address] RBC (Bld) [#/Vol] 4.41 10*6/uL Normal 3.93-5.22 [facility] Comment on above: Performed By: #### C BCWD #### [facility] [address] [place] [address] WBC (Bld) [#/Vol] 8.6 10*3/uL Normal 4.0-10.0 [facility] Comment on above: Performed By: #### C BCWD #### [facility] [address] [place] [address] CBC with Auto Differentialon 08-21-2021 Basophils (Bld) [#/Vol] 0.0 10*3/uL 0.0 - 0.1 K/uL [facility] Basophils/100 WBC (Bld) 0.3 % 0.1 - 1.2 % [facility] Eosinophils (Bld) [#/Vol] 0.2 10*3/uL 0.0 - 0.4 K/uL [facility] Eosinophils/100 WBC (Bld) 2.4 % 0.7 - 5.8 % [facility] Hematocrit (Bld) [Volume fraction] 41.7 % 37.0 - 47.0 % [facility] Hemoglobin (Bld) [Mass/Vol] 13.6 g/dL 11.2 - 15.7 g/dL [facility] Immature granulocytes (Bld) [#/Vol] 0.0 10*3/uL [facility] Immature granulocytes/100 WBC (Bld) 0.3 % [facility] Interpretation and review of laboratory results Abnormal [facility] Lymphocytes (Bld) [#/Vol] 2.2 10*3/uL 1.2 - [...] [facility] RBC (Bld) [#/Vol] 4.41 10*6/uL [facility] WBC (Bld) [#/Vol] 8.6 10*3/uL 4.0 - 10.0 K/uL [facility] COVID-19on 08-21-2021 SARS-CoV-2 (COVID-19) RNA JOSIE+probe Ql (Unsp spec) Not detected Normal Not Detect [facility] Comment on above: Result Comment: Brittani [...] authorized laboratories. Fact sheet for Healthcare Providers: https://www.fda.gov/media/644588/download Fact sheet for Patients: https://www.fda.gov/media/355178/download METHODOLOGY: Isothermal Nucleic Acid Amplification Performed By: #### C BCWD #### [facility] [address] [place] [address] COVID-19, Rapidon 08-21-2021 SARS-CoV-2 (COVID-19) RNA JOSIE+probe [...] authorized laboratories. Fact sheet for Healthcare Providers: https://www.fda.gov/media/300289/download Fact sheet for Patients: https://www.fda.gov/media/472481/download METHODOLOGY: Isothermal Nucleic Acid Amplification [facility] [...] Some of this report was completed using [employer] voice-recognition technology and may include unintended errors [...] Mckay Solis MD 08/21/21 Final result Normal [facility] Comprehensive Metabolic Pane l reflex Mgon 08-21-2021 Albumin [Mass/Vol] 4.3 g/dL Normal 3.5-4.6 [facility] Comment on above: Performed By: #### C BCWD #### [facility] [address] [place] [address] ALP [Catalytic activity/Vol] 116 U/L Normal 40-130 [facility] Comment on above: Performed By: #### C BCWD #### [facility] [address] [place] [address] ALT [Catalytic activity/Vol] 8 U/L Normal 0-33 [facility] Comment on above: Performed By: #### C BCWD #### [facility] [address] [place] [address] Anion gap [Moles/Vol] 13 mmol/L Normal 9-15 [facility] Comment on above: Performed By: #### C BCWD #### [facility] [address] [place] [address] AST [Catalytic activity/Vol] 10 U/L Normal 0-35 [facility] Comment on above: Performed By: #### C BCWD #### [facility] [address] [place] [address] Bilirubin [Mass/Vol] mg/dL Normal 0.2-0.7 [facility] Comment on above: Performed By: #### C BCWD #### [facility] [address] [place] [address] Calcium [Mass/Vol] 9.3 mg/dL Normal 8.5-9.9 [facility] Comment on above: Performed By: #### C BCWD #### [facility] [address] [place] [address] Chloride [Moles/Vol] 105 mmol/L Normal 95-107 [facility] Comment on above: Performed By: #### C BCWD #### [facility] [address] [place] [address] CO2 [Moles/Vol] 22 mmol/L Normal 20-31 [facility] Comment on above: Performed By: #### C BCWD #### [facility] [address] [place] [address] Creatinine [Mass/Vol] 0.48 mg/dL Low 0.50-0.90 [facility] Comment on above: Performed By: #### C BCWD #### [facility] [address] [place] [address] GFR >60.0 Normal >60 [facility] Comment on above: Result Comment: >60 mL/min/1.73m2 EGFR, calc. for ages 18 and older using the MDRD formula (not corrected for weight), is valid for stable renal function. Performed By: #### C BCWD #### [facility] [address] [place] [address] GFR/1.73 sq M.predicted among blacks MDRD (S/P/Bld) [Vol rate/Area] mL/min/{1.73_m2} Normal >60 [facility] Comment on above: Result Comment: >60 mL/min/1.73m2 EGFR, calc. for ages 18 and older using the MDRD formula (not corrected for weight), is valid for stable renal function. Performed By: #### C BCWD #### [facility] [address] [place] [address] Globulin (S) [Mass/Vol] 2.5 g/dL Normal 2.3-3.5 [facility] Comment on above: Performed By: #### C BCWD #### [facility] [address] [place] [address] Glucose [Mass/Vol] 114 mg/dL Critically high 70-99 M [facility] Comment on above: Performed By: #### C BCWD #### [facility] [address] [place] [address] Magnesium [Moles/Vol] 3.6 mmol/L Normal 3.4-4.9 [facility] Comment on above: Performed By: #### C BCWD #### [facility] [address] [place] [address] Protein [Mass/Vol] 6.8 g/dL Normal 6.3-8.0 [facility] Comment on above: Performed By: #### C BCWD #### [facility] [address] [place] [address] Sodium [Moles/Vol] 140 mmol/L Normal 135-144 [facility] Comment on above: Performed By: #### C BCWD #### [facility] [address] [place] [address] Urea nitrogen [Mass/Vol] 10 mg/dL Normal 6-20 [facility] Comment on above: Performed By: #### C BCWD #### [facility] [address] [place] [address] Comprehensive Metabolic Pane l w/ Reflex to [...] [facility] CO2 [Moles/Vol] 22 mmol/L [facility] Creatinine [Mass/Vol] 0.48 mg/dL Low 0.50 - [...] [facility] Sodium [Moles/Vol] 140 mmol/L [facility] Urea nitrogen (BldV) [Mass/Vol] 10 mg/dL 6 - 20 mg/dL [facility] Lipaseon 08-21-2021 Lipase [Catalytic activity/Vol] 18 U/L Normal - [facility] Comment on above: Performed By: #### L IPAS #### [facility] [address] [facility] [address] Lipase [Catalytic activity/Vol] 18 U/L U/L [facility] No Panel Informationon 08-21 [facility] , Urineon 2 Beta HCG ( test) Ql (U) Negative Detects HCG level >20 MIU/mL [facility] UR HCG Qualitativeon 022 Beta HCG ( test) Ql (U) Negative Normal Detects [facility] Comment on above: Performed By: #### C BCWD #### [facility] [address] [place] [address] Urinalysis with Reflex to Cu ltureon 08-21-2021 Bilirubin Urine Negative Negative [facility] RS [facility] Blood, Urine Negative Negative [facility] Clarity, UA Clear Clear [facility] Color, UA Yellow Straw/Yellow [facility] Glucose, Ur Negative Negative mg/dL [facility] Ketones Ql (U) Negative Negative mg/dL [facility] Leukocyte esterase Test strip Ql (U) Negative Negative [facility] Nitrite, Urine Negative Negative [facility] pH, UA 5.5 [facility] Protein, UA Negative Negative mg/dL [facility] Specific [place], UA <=1.005 [facility] Urine Reflex to Culture Not Indicated [facility] Urobilinogen, Urine 0.2 <2.0 E.U./dL [facility] Urinalysis, reflex to cultur minoo 08-21-2021 Bilirubin Ql (U) Negative Normal Negative [facility] Comment on above: Performed By: #### C BCWD #### [facility] [address] [place] [address] Clarity (U) Clear Normal Clear [facility] Comment on above: Performed By: #### C BCWD #### [facility] [address] [place] [address] Color (U) Yellow Normal Straw/[place] [facility] Comment on above: Performed By: #### C BCWD #### [facility] [address] [place] [address] Glucose Ql (U) Negative Normal Negative [facility] Comment on above: Performed By: #### C BCWD #### [facility] [address] [place] [address] Hemoglobin Ql (U) Negative Normal Negative [facility] Comment on above: Performed By: #### C BCWD #### [facility] [address] [place] [address] Ketones Ql (U) Negative Normal Negative [facility] Comment on above: Performed By: #### C BCWD #### [facility] [address] [place] [address] Leukocyte esterase Test strip Ql (U) Negative Normal Negative [facility] Comment on above: Performed By: #### C BCWD #### [facility] [address] [place] [address] Nitrite Ql (U) Negative Normal Negative [facility] Comment on above: Performed By: #### C BCWD #### [facility] [address] [place] [address] pH (U) 5.5 [pH] Normal 5.0-9.0 [facility] Comment on above: Performed By: #### C BCWD #### [facility] [address] [place] [address] Protein Ql (U) Negative Normal Negative [facility] Comment on above: Performed By: #### C BCWD #### [facility] [address] [place] [address] Specific gravity (U) [Rel density] <=1.005 Normal 1.005-1.03 [facility] Comment on above: Performed By: #### C BCWD #### [facility] [address] [place] [address] Urine Reflexed to Culture Not Indicated Normal [facility] Comment on above: Performed By: #### C BCWD #### [facility] [address] [place] [address] Urobilinogen Qn (U) 0.2 {Ginger'U}/dL Normal < 2.0 [facility] Comment on above: Performed By: #### C BCWD #### [facility] [address] [place] [address] CBC WITH AUTO DIFFERENTIALon 02-29-2020 Basophils (Bld) [#/Vol] 0.0 10*3/uL 0 - 0.2 K/uL [facility], [place] Basophils/100 WBC (Bld) 0.4 % [facility], [place] Eosinophils (Bld) [#/Vol] 0.2 10*3/uL 0 - 0.7 K/uL [place] Eosinophils/100 WBC (Bld) 2.6 % [place] Erythrocyte distribution width (RBC) [Ratio] 13.6 % 11.5 - 14.5 % [place] Hematocrit (Bld) [Volume fraction] 40.3 % 37 - 47 % [place] Hemoglobin (Bld) [Mass/Vol] 13.6 g/dL 12 - 16 g/dL [place] Lymphocytes (Bld) [#/Vol] 1.7 10*3/uL 1 - 4.8 K/uL [place] Lymphocytes/100 WBC (Bld) 21.0 % [place] MCH (RBC) [Entitic mass] 31.0 pg 27 - 31.3 pg [place] MCHC (RBC) [Mass/Vol] 33.9 % 33 - 37 % [place] MCV (RBC) [Entitic vol] 91.6 fL 82 - 100 fL [place] Monocytes (Bld) [#/Vol] 0.4 10*3/uL 0.2 - 0.8 K/uL [place] Monocytes/100 WBC (Bld) 4.6 % [place] Neutrophils Absolute 5.6 K/uL 1.4 - 6 .5 K/uL [place] Neutrophils/100 WBC (Bld) 71.4 % [place] Platelets (Bld) [#/Vol] 195 10*3/uL 130 - 400 K/uL [place] RBC (Bld) [#/Vol] 4.40 10*6/uL [place] WBC (Bld) [#/Vol] 7.9 10*3/uL 4.8 - 10.8 K/uL [place] COVID-19on 02-29-2020 SARS-CoV-2, NAAT Not Detected Not Detected [place] Comment on above: Rapid NAAT: Negative [...] authorized laboratories. Fact sheet for Healthcare Providers: https://www.fda.gov/media/971040/download Fact sheet for Patients: https://www.fda.gov/media/803103/download METHODOLOGY: Isothermal Nucleic Acid Amplification POC UR-QUALon 02-11 Beta HCG ( test) Ql (U) Negative Negative [place] Lot Number [id number] [place] Negative QC Pass/Fail Pass [place] Positive QC Pass/Fail Pass [place] Hemoglobinon 11-03-2019 Hemoglobin (Bld) [Mass/Vol] 11.2 g/dL Low 12 - 16 g/dL [place] Interpretation and review of laboratory results Abnormal [place] RPRon 11-03-2019 Reagin Ab RPR Ql (S) Non-reactive Non-reactive [place] CBC auto differentialon 10-13 Basophils (Bld) [#/Vol] 0.0 10*3/uL 0 - 0.2 K/uL [place] Basophils/100 WBC (Bld) 0.3 % [place] Eosinophils (Bld) [#/Vol] 0.1 10*3/uL 0 - 0.7 K/uL [place] Eosinophils/100 WBC (Bld) 1.2 % [place] Erythrocyte distribution width (RBC) [Ratio] 13.4 % 11.5 - 14.5 % [place] Hematocrit (Bld) [Volume fraction] 34.9 % Low 37 - 47 % [place] Hemoglobin (Bld) [Mass/Vol] 11.7 g/dL Low 12 - 16 g/dL [place] Interpretation and review of laboratory results Abnormal [place] Lymphocytes (Bld) [#/Vol] 1.4 10*3/uL 1 - 4.8 K/uL [place] Lymphocytes/100 WBC (Bld) 11.4 % [place] MCH (RBC) [Entitic mass] 31.2 pg 27 - 31.3 pg [place] MCHC (RBC) [Mass/Vol] 33.6 % 33 - 37 % [place] MCV (RBC) [Entitic vol] 93.0 fL 82 - 100 fL [place] Monocytes (Bld) [#/Vol] 0.5 10*3/uL 0.2 - 0.8 K/uL [place] Monocytes/100 WBC (Bld) 4.2 % [place] Neutrophils Absolute 10.1 K/uL High 1.4 - 6 .5 K/uL [place] Neutrophils/100 WBC (Bld) 82.9 % [place] Platelets (Bld) [#/Vol] 191 10*3/uL 130 - 400 K/uL [place] RBC (Bld) [#/Vol] 3.75 10*6/uL [place] WBC (Bld) [#/Vol] 12.1 10*3/uL High 4.8 - 10.8 K/uL [place] Comprehensive Metabolic Pane fortunato 11-02-2019 Albumin [Mass/Vol] 3.2 g/dL Low 3.5 - 4.6 g/dL [place] ALP [Catalytic activity/Vol] 147 U/L High 40 - 130 U/L [place] ALT [Catalytic activity/Vol] 6 U/L 0 - 33 U/L [place] Anion gap [Moles/Vol] 10 mmol/L [place] AST [Catalytic activity/Vol] 7 U/L 0 - 35 U/L [place] Bilirubin Ql (U) <0.2 0.2 - 0.7 mg/dL [place] Calcium [Mass/Vol] 8.4 mg/dL Low 8.5 - 9.9 mg/dL [place] Chloride [Moles/Vol] 104 mmol/L [place] CO2 [Moles/Vol] 21 mmol/L [place] Creatinine [Mass/Vol] 0.3 mg/dL Low 0.5 - 0.9 mg/dL [place] GFR >60.0 >60 [place] Comment on above: >60 mL/min/1.73m2 EG FR, calc. for ages 18 and older using the MDRD formula (not corrected for weight), is valid for stable renal function. GFR Non- >60.0 >60 [place] Comment on above: >60 mL/min/1.73m2 EG FR, calc. for ages 18 and older using the MDRD formula (not corrected for weight), is valid for stable renal function. Globulin (S) [Mass/Vol] 2.8 g/dL 2.3 - 3.5 g/dL [place] Glucose [Mass/Vol] 103 mg/dL High 70 - 99 mg/dL [place] Interpretation and review of laboratory results Abnormal [place] Potassium [Moles/Vol] 3.9 mmol/L [place] Protein [Mass/Vol] 6.0 g/dL Low 6.3 - 8 g/dL [place] Sodium [Moles/Vol] 135 mmol/L [place] Urea nitrogen [Mass/Vol] 8 mg/dL 6 - 20 mg/dL [place] DRUG SCREEN MULTI URINEon Amphetamine Screen, Urine Negative Negative <1000 ng/mL [place] Barbiturate Screen, Ur Negative Negative < 200 ng/mL [place] Benzodiazepine Screen, Urine Negative Negative < 200 ng/mL [place] Cannabinoid Scrn, Ur Negative Negativ e < 50 ng/mL [place] Cocaine Metabolite Screen, Urine Negative Negative < 300 ng/mL [place] Drug Screen Comment: see below [place] Comment on above: This method is a scr eening test to detect only these drug classes as part of a medical workup. Confirmatory testing by another method should be ordered if clinically indicated. Methadone Screen, Urine Negative Negative <300 ng/mL [place] Comment on above: Effective: 10/20/18 New Test for Qualitative Drug Screen. Opiate Scrn, Ur Negative Negative < 300 ng/mL [place] Oxycodone Urine Negative Negative <10 0 ng/mL [place] Comment on above: Effective: 10/20/18 New Test for Qualitative Drug Screen. PCP Screen, Urine Negative Negative < 25 ng/mL [place] Propoxyphene Scrn, Ur Negative Negative <300 ng/mL [place] Comment on above: Effective: 10/20/18 New Test for Qualitative Drug Screen. Hepatitis B surface antigeno n 11-02-2019 Hep B S Ag Interp Non-reactive [place] Rubella antibody, IgGon 10-13 Rubella Antibody IgG 69.5 IU/mL [place] Comment on above: Patient's result ind icates immunity. Default Normal Ranges >=10 Presumed Immune <10 Presumed Not immune TYPE AND SCREENon 11-02-2019 ABO/Rh Positive [place] Urinalysison 11-02-2019 Bilirubin Urine Negative Negative [place] Blood, Urine Negative Negative [place] Clarity, UA Clear Clear [place] Color, UA Yellow Straw/Yellow [place] Glucose, Ur Negative Negative mg/dL [place] Ketones Ql (U) Negative Negative mg/dL [place] Leukocyte esterase Test strip Ql (U) Negative Negative [place] Nitrite, Urine Negative Negative [place] pH, UA 7.5 [place] Protein (U) [Mass/Vol] Negative Negative mg/dL [place] Specific [place], UA 1.020 [place] Urobilinogen, Urine 0.2 <2.0 E.U./dL [place] Otheron 06-19-2019 APPROPRIATE GROWTH SINCE LAST SONOGRAM. [place] Sonogram #: 1 Presentation: Transverse, head [...] the amniotic fluid is within normal limits. [facility], [place] Manny, Chpo Incoming Radiant Results From [facility] - 06/19/2019 5:09 PM EDT Sonogram #: [...] limits. IMPRESSION: APPROPRIATE GROWTH SINCE LAST SONOGRAM. [employer] US OB LESS THAN 14 WEEKS SIN GLE OR FIRST GESTATIONon 04-14-2019 THERE IS A SINGLE IU P WITH ESTIMATED GESTATIONAL AGE BASED UPON CROWN-RUMP LENGTH OF 10 WEEKS 2 DAYS +/- 1 WEEK WITH HEART RATE OF 155 BPM. ANATOMY IS NOT ASSESSED DUE TO EARLY GESTATIONAL AGE. THE RIGHT OVARY IS SURGICALLY ABSENT. THE LEFT OVARY SUBMITTED VISUALIZED. [employer] TRANSABDOMINAL EXAMINATION OF THE PELVIS CLINICAL DATA: [...] ovary is not visualized. No free fluid. [facility] MARCEL Manny, Chpo Incoming Radiant Results From [facility] - 04/14/2019 4:16 PM EST TRANSABDOMINAL EXAMINATION [...] SURGICALLY ABSENT. THE LEFT OVARY SUBMITTED VISUALIZED. [facility]-30-2018 PROGRESS HNO ID: [id number] Author: Maranda Celis Service: ? Author Type: CONTRACT ADMINISTRATION SPECIALIST Type: Progress Notes Filed: 09/30/2018 3:29 [...] OD September 30, 2018 2:08 PM Normal [facility] PROGRESSon 04-24-2018 PROGRESS HNO ID: [id number] Author: Maranda Parker Celis Service: ? Author Type: CONTRACT ADMINISTRATION SPECIALIST Type: Progress Notes Filed: 04/24/2018 3:32 [...] agree with all of its relevant components. Marandavalery Celis, OD April 24, 2018 3:31 PM Normal [facility] Office Visit (Urgent Care)on 08-21-2017 Office Visit (Urgent Care) Chief Complaint Rash History of Present [id number] female who 2 hours ago was sitting [...] 08/21/2017 5:38:10 PM Vitals Vital Signs Recorded: [id number] 05:19DUBdlphgbnyzj68. 5 FHeart Jnoa863Lrejdxyjrqh22A unizrru506Ppmpejido74 Height5 ft 3 boCxwlzb651 lb BMI Farsamhynl07QOR Calculated1.83O2 Qvueezdhdd17Aswu Scale0 Physical ExamPatient appears in no apparent [...] 160 cm Sulema Teran DO Work Phone: [employer] 12-16-2021 07:12-0400 Body mass index (BMI) [Ratio] 31.89 kg/m2 Sulema Teran DO Work Phone: [employer] 12-16-2021 07:12-0400 Body temperature 98.91 [degF] Sulema Teran DO Work Phone: [employer] 12-16-2021 07:12-0400 Body weight 81.65 kg Sulema Teran DO Work Phone: [employer] 12-16-2021 07:12-0400 Diastolic blood pressure 84 mm[Hg] Sulema Teran DO Work Phone: [employer] 12-16-2021 07:12-0400 Heart rate 104 /min Sulema Teran DO Work Phone: [employer] 12-16-2021 07:12-0400 Respiratory rate 18 /min Sulema Teran DO Work Phone: [facility] 12-16-2021 07:12-0400 SaO2% (BldA) [Mass fraction] 98 % Sulema Teran DO Work Phone: [facility] [employer] 12-16-2021 07:12-0400 Systolic blood pressure 127 mm[Hg] Sulema Teran DO Work Phone: [facility] [employer] 10-28-2021 15:43-0400 Body height 160 cm Nikki Omega-David PA-C Work Phone: [facility] [employer] 10-28-2021 15:43-0400 Body mass index (BMI) [Ratio] 31.89 kg/m2 Nikki Omega-David PA-C Work Phone: [facility] 10-28-2021 15:43-0400 Body temperature 98.1 [degF] Nikki Omega-David PA-C Work Phone: [facility] 10-28-2021 15:43-0400 Body weight 81.65 kg Nikki Omega-David PA-C Work Phone: [facility] 10-28-2021 15:43-0400 Diastolic blood pressure 81 mm[Hg] Nikki Omega-David PA-C Work Phone: [facility] 10-28-2021 15:43-0400 Heart rate 93 /min Nikki Omega-David PA-C Work Phone: [facility] [employer] 10-28-2021 15:43-0400 Respiratory rate 20 /min Nikki Omega-David PA-C Work Phone: [email or web address] [employer] 10-28-2021 15:43-0400 SaO2% (BldA) [Mass fraction] 98 % Nikki Omega-David PA-C Work Phone: [employer] 10-28-2021 15:43-0400 Systolic blood pressure 130 mm[Hg] Nikki Mcgovern PA-C Work Phone: [employer] 08-21-2021 06:21-0400 Body temperature 98.2 [degF] Penny Ritter MD Work Phone: [employer] 08-21-2021 06:21-0400 Diastolic blood pressure 58 mm[Hg] Penny Ritter MD Work Phone: [employer] 08-21-2021 06:21-0400 Heart rate 81 /min Penny Ritter MD Work Phone: [employer] 08-21-2021 06:21-0400 Respiratory rate 16 /min Penny Ritter MD Work Phone: [employer] 08-21-2021 06:21-0400 SaO2% (BldA) [Mass fraction] 97 % Penny Ritter MD Work Phone: [employer] 08-21-2021 06:21-0400 Systolic blood pressure 116 mm[Hg] Penny Ritter MD Work Phone: [employer] 08-21-2021 01:09-0400 Body height 160 cm Penny Ritter MD Work Phone: [employer] 08-21-2021 01:09-0400 Body mass index (BMI) [Ratio] 32.06 kg/m2 Penny Ritter MD Work Phone: [employer] 08-21-2021 01:09-0400 Body weight 82.1 kg Penny Ritter MD Work Phone: [employer] 11-05-2020 07:21-0400 Body temperature 98.1 [degF] Rebecca Pittmanilly [employer] Work Phone: 11-05-2020 07:21-0400 Diastolic blood pressure 71 mm[Hg] Rebecca Gonzalez [employer] Phone: 11-05-2020 07:21-0400 Heart rate 94 /min Rebecca Gonzalez DO [employer] Phone: 11-05-2020 07:21-0400 Respiratory rate 18 /min Rebecca Gonzalez [employer] Phone: 11-05-2020 07:21-0400 SaO2% (BldA) [Mass fraction] 99 % Rebecca Gonzalez [employer] Phone: 11-05-2020 07:21-0400 Systolic blood pressure 116 mm[Hg] Rebecca Gonzalez [employer] Phone: 02-29-2020 12:25-0500 Body Temperature 97.7 [degF] Rj [place] 02-29-2020 12:25-0500 BP Diastolic 56 mm[Hg] Rj [employer] [facility] , [place] 02-29-2020 12:25-0500 BP Systolic 123 mm[Hg] Rj [facility] [place] 02-29-2020 12:25-0500 Pulse (Heart Rate) 76 /min Rj [employer] [facility] 02-29-2020 12:25-0500 Pulse Oximetry 99 % [facility] [place] 02-29-2020 12:25-0500 Respiratory Rate 16 /min Rj [employer] [place] 02-29-2020 08:15-0500 BMI (Body Mass Index) 34.54 kg/m2 Rj [employer] [facility] 02-29-2020 08:15-0500 Body weight 88.45 kg Rj [employer] [facility] [place] 02-29-2020 08:15-0500 Height 160 cm Rj [employer] [facility] [place] 11-04-2019 07:30-0400 Body Temperature 98.29 [degF] Rj Trendyol [facility] 11-04-2019 07:30-0400 BP Diastolic 68 mm[Hg] Rj Aguilar [facility] , [place] 11-04-2019 07:30-0400 BP Systolic 115 mm[Hg] Rj Aguilar [facility] , [place] 11-04-2019 07:30-0400 Pulse (Heart Rate) 88 /min Rj Aguilar [facility], [place] 11-04-2019 07:30-0400 Respiratory Rate 16 /min Rj Aguilar [facility], [place] 11-03-2019 12:37-0400 Pulse Oximetry 99 % Rj Lauren [facility] , [place] 11-02-2019 07:45-0400 BMI (Body Mass Index) 37.91 kg/m2 Rj Krishna [facility] 11-02-2019 07:45-0400 Body weight 97.07 [facility] [place] 11-02-2019 07:45-0400 Height 160 cm Rj [facility] , [place] 09-30-2018 10:02-0400 BMI (Body Mass Index) 31 kg/m2 Tip Antunez [facility], [place] 09-30-2018 10:02-0400 Body Temperature 98.49 [degF] Tip [facility], [place] 09-30-2018 10:02-0400 Body weight 79.38 kg Tpi [facility] , [place] 09-30-2018 10:02-0400 BP Diastolic 71 mm[facility]Hg[facility] [place] 09-30-2018 10:02-0400 BP Systolic 139 mm[Hg] [facility] [place] 09-30-2018 10:02-0400 Height 160 cm Tip [facility] , [place] 09-30-2018 10:02-0400 Pulse (Heart Rate) 102 /min Tip [facility], [place] 09-30-2018 10:02-0400 Pulse Oximetry 98 % Tip Antunez [facility] , [place] 09-30-2018 10:02-0400 Respiratory Rate 14 /min Tip [place] Encounters Encounter Date Encounter Type Care Provider Facility Start: 03-21-2023 End: 03-21-2023 ambulatory JOSE F R SETH [facility] Start: 03-18-2023 Chart abstracting Fish lorenz MD Work Phone: [facility] Start: 03-11-2023 End: 03-11-2023 ambulatory JOSE F SETH Not Available Start: 02-18-2023 End: 02-18-2023 ambulatory DONNELL STEF Not Available Start: 01-29-2023 End: 01-30-2023 ambulatory NIKKI MCGOVERN Facility:[facility] Start: 01-29-2023 End: 01-29-2023 Patient encounter procedure Jose F R SETH [facility] Start: 01-29-2023 End: 01-30-2023 ambulatory Jose F R SETH Facility:[facility] Start: 01-29-2023 End: 01-29-2023 Patient encounter procedure Jose F R SETH [facility] Start: 01-11-2023 End: 01-12-2023 ambulatory Jose F R SETH Facility:[facility] Start: 01-11-2023 End: 01-11-2023 Patient encounter procedure Jose F R SETH [facility] Start: 01-10-2023 End: 01-10-2023 ambulatory JOSE F SETH Not Available Start: 12-28-2022 End: 12-28-2022 ambulatory DONNELL STEF Not Available Start: 07-31-2022 End: 07-31-2022 Emergency department patient visit NIKKI MCGOVERN [facility] Start: 04-11-2022 End: 04-12-2022 ambulatory LILIANA CARROLL [facility] Start: 04-11-2022 End: 04-11-2022 Subsequent hospital visit by physician Nikki Mcgovern PA-C Work Phone: [employer] Comment on above: Tonsillitis with exu date Start: 12-16-2021 End: 12-16-2021 Emergency department patient visit [facility] Start: 12-16-2021 End: 12-16-2021 Emergency department patient visit Sulema Teran Work Phone: [facility] Comment on above: Bitten by mouse, ini tial encounter (Primary Dx) Start: 11-29-2021 End: 11-29-2021 ambulatory [facility] Start: 10-28-2021 End: 10-28-2021 Emergency department patient visit [facility] Start: 10-28-2021 End: 10-28-2021 Emergency department patient visit [facility] PA-C Work Phone: [facility] Comment on above: Cellulitis of trunk, unspecified site of trunk (Primary Dx) Start: 08-21-2021 End: 08-21-2021 Emergency department patient visit [facility] Start: 08-21-2021 End: 08-21-2021 Emergency department patient visit Penny Ritter MD Work Phone: [facility] Comment on above: Acute gastritis with out hemorrhage, unspecified gastritis type (Primary Dx) Start: 11-05-2020 End: 11-05-2020 Emergency department patient visit Rebecca S Gonzalez DO [facility] Comment on above: Dental abscess (Prim [...] hospital visit by physician Madhav Ultrasound 3 [facility] Ultrasound Comment on above: Amenorrhea Start: 04-14-2019 End: 04-16-2019 Subsequent hospital visit by physician Wade Ultrasound Room 1 [facility] Comment on above: Amenorrhea Start: 09-30-2018 End: 09-30-2018 Emergency department patient visit Tip Antunez Work Phone: [facility] Comment on above: Pain around left [...] & pelvis w/contrast material Spring Orozco [employer] - DEPENDENCY COUNSELOR Other Phone: Start: 10-28-2021 Blood count complete auto&auto difrntl wbc Spring Orozco [employer]PER[employer] - DEPENDENCY COUNSELOR Other Phone: Start: 10-28-2021 Urine test visual color cmprsn meths Spring Orozco [employer]PER[employer] - DEPENDENCY COUNSELOR Other Phone: Start: 08-21-2021 Assay of lipase Jose Ritter MD Work Phone: Start: 08-21-2021 COVID-19, RAPID Jose Ritter MD Work Phone: Start: 08-21-2021 Urine test visual color cmprsn meths Penny Ritter MD Work Phone: Start: 07-12-2020 Microscopic observat ion [Identifier] in Cervix by Cyto stain Rebecca Gonzalez Start: 02-29-2020 Urine test visual color cmprsn meths Junior A Fuentes Work Phone: Start: 02-29-2020 Blood count complete auto&auto difrntl wbc Junior A Fuentes Work Phone: Start: 02-29-2020 COVID-19 Junior A Ya xavier Work Phone: Start: 11-03-2019 Blood count hemoglobin Rj Aguilar Work Phone: Start: 11-02-2019 End: 11-02-2019 delivery only Rj Aguilra Work Phone: Start: 11-02-2019 Antibody screen Rj [...] uterus after 1st trimest 02/11 gestation Rj Altmaneson Work Phone: Start: 06-19-2019 Us preg uterus real time w/image dcmtn transvag Rj Aguilar Work Phone: Start: 04-14-2019 Us uterus 1 4 wk transabdl 02/11 gestat Rj Aguilar Work Phone: c section x2 Jose F SETH Colonoscopy Jose F SETH extraction of wisdom teeth Jose F SETH H/O: section Previous c esarean section Mloz 1 Plan of Treatment Date Care Activity Detail Author Start: 12-17-2031 DTaP/Tdap/Td vaccine (3 - Td or Tdap) DTaP/Tdap/Td vaccine (3 - Td or Tdap) [facility] Start: 07-12-2025 Screening for malign ant neoplasm of cervix [facility] Start: 05-27-2024 Screening for malign ant neoplasm of cervix Cervical cancer screen [place], [place] Start: 07-13-2023 Screening for malign ant neoplasm of cervix Pap smear [facility] Start: 03-21-2023 End: 03-21-2023 Patient encounter procedure 03/21/2023 8:00 AM EST Appointment [facility] [place] [address] [facility] [address] [place] [address] [facility] [place] Start: 03-07-2023 Depression Monitoring Depression Mon [facility] Start: 10-12-2022 Influenza vaccination Influenza Vacc [facility] Start: 08-29-2022 Depression Monitoring Depression Mon [facility] Start: 06-08-2022 End: 06-08-2022 Patient encounter procedure 06/08/2022 Office Visit Neurology Blas Mike MD [address] [place] [address] [facility] Start: 02-02-2022 End: 02-02-2022 Patient encounter procedure 02/02/2022 Office Visit Neurology Blas Mike MD [address] [place] [address] [facility] Start: 01-10-2022 End: 01-10-2022 Patient encounter procedure 01/10/2022 Office Visit Family Medicine Nikki Mcgovern PA-C [address] [place] [address] [facility] Start: 12-18-2021 End: 12-18-2021 Patient encounter procedure 12/18/2021 Office Visit Orthopedic Surgery Alena Chandra MD [address] [place] [address] [facility] Start: 10-12-2021 Influenza vaccination Flu vaccine (# 1) [facility] Start: 09-29-2021 End: 09-29-2021 Patient encounter procedure 09/29/2021 Office Visit Neurology Blas Mike MD [address] [place] [address] [facility] Start: 09-11-2021 Influenza vaccination Flu vaccine (# 1) [facility] Start: 01-20-2021 End: 01-20-2021 Patient encounter procedure 01/20/2021 Office Visit Neurology Blas Mike MD [address] [place] [address] [facility] Start: 12-01-2020 End: 12-01-2020 Patient encounter procedure 12/01/2020 Office Visit Obstetrics and Gynecology Rj Aguilar, [address] [place] [address] [phone] [facility] Obstetrics [facility]ne[facility] Start: 10-12-2020 Influenza vaccination Flu vaccine (# 1) [facility] Work Phone: Start: 09-29-2020 End: 09-29-2020 Patient encounter procedure 09/29/2020 Office Visit Family Medicine Nikki Mcgovern PA-C [address] [place] [address] [phone] [facility] Primary [facility] Specialty [facility] Start: 09-16-2020 End: 09-16-2020 Patient encounter procedure 09/16/2020 Office Visit Neurology Blas Mike MD [address] [facility] [address] [place] [address] [phone] [facility] Start: 02-16-2020 End: 02-16-2020 Procedure visit 02/16/2020 Procedure visit Obstetrics and Gynecology Rj Aguilar, [address] [place] [address] [phone] [facility]etrics [facility] Start: 12-01-2019 DTaP/Tdap/Td vaccine (2 - Td or Tdap) DTaP/Tdap/Td vaccine (2 - Td or Tdap) [facility] Start: 12-01-2019 DTaP/Tdap/Td vaccine (2 - Td) DTaP/Tdap/Td vaccine (2 - Td) [place] Start: 10-13-2019 Influenza vaccination [place], [place] Start: 06-25-2019 End: 06-25-2019 Routine 06/25/2019 Routine Obstetrics and Gynecology Rj Aguilar, [address] [place] [address] [phone] [facility] Ob[facility]etrics [facility] Start: 05-05-2019 End: 05-05-2019 Routine 05/05/2019 Routine Obstetrics and Gynecology Rj Aguilar, [address] [place] [address] [phone] [facility] Obstetrics [facility]ne[facility] Start: 10-12-2018 Influenza vaccination Flu vaccine (# 1) [place] Start: 05-07-2016 Cervical cancer screen Cervical canc er screen [place], [place] Start: 10-20-2008 Screening for malign ant neoplasm of cervix Pap Smear [facility] Start: 10-20-2006 DTaP,Tdap and Td Vaccines (1 - Tdap) DTaP,Tdap and Td Vaccines (1 - Tdap) [facility] Start: 10-20-2005 Adult BMI Screening Adult BMI Screen ing [facility] Start: 10-20-2000 Varicella Vaccine (1 of 2 - 13+ 2-dose series) Varicella Vaccine (1 of 2 - 13+ 2-dose series) [place], [place] Start: 1999 COVID-19 Vaccine (1) COVID-19 Vaccin e (1) [facility] [employer] Phone: Start: 1999 [facility] Start: 1999 Depression Screening Depression Scre ening [facility] Start: 1999 Tobacco Screening Tobacco Screening [facility] Start: 10-20-1993 Pneumococcal 0-64 ye ars Vaccine (1 - PCV) Pneumococcal 0-64 years Vaccine (1 - PCV) [facility] Start: 10-20-1993 Pneumococcal 0-64 ye ars Vaccine (1 of 1 - PPSV23) Pneumococcal 0-64 years Vaccine (1 of 1 - PPSV23) [place] Start: 10-20-1993 Pneumococcal 0-64 ye ars Vaccine (1 of 2 - PPSV23) Pneumococcal 0-64 years Vaccine (1 of 2 - PPSV23) [facility] [employer] [employer] Phone: Start: 10-20-1992 COVID-19 Vaccine (1) COVID-19 Vaccin e (1) [facility] Start: 10-20-1988 Varicella vaccine (1 of 2 - 2-dose childhood series) Varicella vaccine (1 of 2 - 2-dose childhood series) [facility] Start: 04-19-1988 COVID-19 Vaccine (#1) COVID-19 Vacci ne (#1) [facility] Start: 1987 Tobacco Counseling Tobacco Counselin [facility] End: 08-21-2021 CT ABDOMEN PELVIS W IV CONTRAST Additional Contrast? None CT ABDOMEN PELVIS W IV CONTRAST Additional Contrast? None Imaging Routine Once for 1 Occurrences starting 08/21/2021 until 08/21/2021 [facility] Phone: Comment on above: Once for 1 Occurrenc es starting 08/21/2021 until 08/21/2021 CT ABDOMEN PELVIS W IV CONTRAST Additional Contrast? None CT ABDOMEN PELVIS W IV CONTRAST Additional Contrast? None Imaging STAT 08/21/2021 2:34 AM EDT [facility] Phone: End: 10-28-2021 Culture, Anaerobic and Aerobic Culture, Anaerobic and Aerobic Microbiology Routine One Time for 1 Occurrences starting 10/28/2021 until 10/28/2021 [facility] Phone: Comment on above: One Time for 1 Occur rences starting 10/28/2021 until 10/28/2021 End: 04-11-2022 Culture, Throat [facility] Phone: Comment on above: 1 Occurrences starti ng 04/11/2022 until 04/11/2022 End: 08-12-2020 Holter Monitor 48 Hour Holter Monitor 48 Hour Cardiac Services Routine Heart palpitations 1 Occurrences starting 08/12/2020 until 08/12/2020 [employer] Phone: Comment on above: 1 Occurrences starti ng 08/12/2020 until 08/12/2020 Oxygen therapy [[facility] Data Set] [facility] Comment on above: Daily until disconti nued starting 11/02/2019 Daily until disconti nued starting 02/29/2020 Phase I & II - meter ed glucose Phase I & II - metered glucose Point of Care Testing Routine As Needed until discontinued starting 02/29/2020 [facility] [place] Comment on above: As Needed until disc ontinued starting 02/29/2020 End: 11-02-2019 RHOGAM INJECTION ONLY RHOGAM INJECTION ONLY Blood Bank Routine One Time for 1 Occurrences starting 11/02/2019 until 11/02/2019 [place] Comment on above: One Time for 1 Occur rences starting 11/02/2019 until 11/02/2019 Spirometry panel Incentive jayleen metry Respiratory Care Routine Every 2hr while awake until discontinued starting 11/02/2019 [place] Comment on above: Every 2hr while awak e until discontinued starting 11/02/2019 Surgical Pathology Surgical Path ology Lab Routine Release Upon Ordering for 1 Occurrences starting 02/29/2020 [place] Comment on above: Release Upon Orderin g for 1 Occurrences starting 02/29/2020 End: 04-14-2019 US OB Transvaginal US OB Transvaginal Imaging Routine Amenorrhea 1 Occurrences starting 04/14/2019 until 04/14/2019 [place] Comment on above: 1 Occurrences starti ng 04/14/2019 until 04/14/2019 US OB Transvaginal US OB Transva ginal Imaging Routine Amenorrhea 04/14/2019 2:44 PM EST [place] Immunizations Immunization Date Immunization Notes Care Provider [facility] 12-16-2021 tetanus toxoid, redu jameson diphtheria toxoid, and acellular pertussis vaccine, adsorbed Sulema Teran DO Work Phone: [facility] 11-02-2019 diphtheria, tetanus toxoids and acellular pertussis vaccine, unspecified formulation Rj Aguilar [place], [place] 01-22-2017 tetanus toxoid, redu jameson diphtheria toxoid, and acellular pertussis vaccine, adsorbed Jose F ANN [facility] Comment on above: Reason for Medicatio n: Other (see comment) 11-30-2009 tetanus toxoid, redu jameson diphtheria toxoid, and acellular pertussis vaccine, adsorbed Tip Antunez [facility] 10-04-2000 measles, mumps and rubella virus vaccine Rebecca Carlos DO [facility] Work Phone: Payers Date Payer Category Payer Medicaid [facility] O [id number] 2023-Present [phone] [address] [place] [address] [id number] 2021 Unknown , [id number] 2017 Unknown [id number] 2016 Unknown [facility] MEDICAID xxxxxxxxxxx 2016-Present [phone] CLAIMS DEPARTMENT [address] [place] [address] xxxxxxxxxxx [id number] 2016 Unknown [id number] 1987 Unknown [id number] [id number] 1987 Unknown [id number] 1987 Unknown [id number] 1987 Unknown [id number] 1987 Unknown [id number] [id number] 1987 Unknown [id number] [id number] 1987 Unknown [id number] [id number] 1987 Unknown [id number] [id number] 1987 Unknown [id number] [id number] 1987 Unknown [id number] [id number] 1987 Unknown [id number] [id number] 1987 Unknown [id number] [id number] 1987 Unknown [id number] [id number] 1987 Unknown [id number] Social History Date Type Detail Facility Start: 09-30-2018 End: 03-18-2023 Tobacco smoking status NHIS Current every day smoker NAKUL DONG [facility] History of tobacco use Cigarette Smoker [place] Start: 09-30-2018 End: 03-18-2023 Cigarettes smoked current (pack per day) - Reported [place], [place] Start: 09-30-2018 End: 03-18-2023 Alcohol intake No [facility] Start: 1985 Sex Assigned At Not on file [place] Start: 04-07-2019 End: 04-11-2022 Alcohol intake Current non-drinker of alcohol (finding) [place] Start: 02-19-2019 [place] Exposure to SARS-CoV -2 (event) Unable to assess [place] Start: 11-03-2019 End: 08-29-2021 Tobacco use and exposure Never used [place], [place] Start: 08-11-2021 End: 04-11-2022 Exposure to SARS-CoV-2 (event) Not sure [place] Start: 08-04-2020 End: 04-09-2022 History 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 [employer] Work Phone: Start: 08-04-2020 End: 04-09-2022 History 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 [facility] Phone: Start: 1987 Sex Assigned At Female B ON [employer] Start: 10-18-2021 End: 12-16-2021 Exposure to SARS-CoV-2 (event) Yes [facility] [employer] Start: 04-09-2022 History SDOH Transpo rt Non-Med 2 [facility] [employer] Phone: Start: 10-13-2017 Tobacco smoking status Heavy t obacco smoker (finding) [facility] Medical Equipment Procedure Code Equipment Code Equipment Origin al Text Equipment Identifier Dates fluorescein ophthalmic strip 1 mg [id number] Start: 09-30-2018 End: 09-30-2018 Clinical Notes 08-21-2021 to 01-11-2023 InstructionsAttachments Note Date & Type Note Facility 01-11-2023 Evaluation + Plan note Diagnostic Tests PendingHIV Screen 4th Generation wRfx 01/11/23Hepatitis B Surface Antigen 01/11/23RPR with Conf Rfx 01/11/23Rubella Antibody IgG 01/11/23HCV Antibody RFX to Quant PCR 01/11/23Urine Culture 01/11/23 [facility] 08-21-2021 Hospital Discharg e instructions Penny Ritter MD - 08/21/2021 Return to the Emergency Department immediately if you develop worsening symptoms, or you have any other concerns. Please follow up with your family doctor in 1-2 days. The following attachments cannot be sent through Care Everywhere.Gastritis ([place])documented in this encounter [facility] Phone: Evaluation note Diagnosis Heart palpitations Palpitations documented in this encounter [employer] Phone: evaluation note* Diagnosis Dental abscess- Primary Periapical abscess without sinus documented in this encounter [employer] Phone: evaluation note* Diagnosis Acute gastritis without hemorrhage, unspecified gastritis type- Primary documented in this encounter [facility] Phone: evaluation note* Diagnosis Cellulitis of trunk, unspecified site of trunk- Primary documented in this encounter [facility] Phone: evaluation note* Diagnosis Bitten by mouse, initial encounter- Primary documented in this encounter [facility] [employer] Phone: evaluation note* Diagnosis Tonsillitis with exudate Acute tonsillitis documented in this encounter [facility]: Hospital course Narrative No data available for this section [facility]* Attachments The following attachments cannot be sent through Care Everywhere. * Tooth: Abscessed ([place]) [facility] Hospital Discharge instructions* Attachments The following attachments cannot be sent through Care Everywhere. * Cellulitis ([place] Island[place]) documented in [facility] Phone: Hospital Discharge instructions* Attachments The following attachments cannot be sent through Care Everywhere. * Bites: Animal ([place]) documented in [facility] Phone: Hospital Discharge instructions No data available for this section [facility] Hospital[facility]ructionsNot on filedocumented in this encounter [facility] No data available for this section [facility] Summary Purpose Family History No Family [...] FoundDocuments on File Type Date Recorded Patient Child Care Centre Director Expl anation Advance Directives and Living Will Power of Technical Healthcare Consultant Documents on File Type Date Recorded Patient Child Care Centre Director Expl anation Advance Directives and Living Will Power of Technical Healthcare Consultant Documents on File Type Date Recorded Patient Child Care Centre Director Expl anation ACP-Advance Directive ACP-Power of Technical Healthcare Consultant Latest Code Status on File Code Status Date Activated Date Inactivated Comments Full Code 11/02/2019 12:26 PM Full Code 11/02/2019 7:35 AM 11/02/2019 12:26 PM Latest Code Status on File Code Status Date Activated Date Inactivated Comments Full Code 11/02/2019 12:26 PM 11/04/2019 3:22 PM Documents on File Type Date Recorded Patient Child Care Centre Director Expl anation ACP-Advance Directive ACP-Power of Technical Healthcare Consultant Latest Code Status on File Code Status [...] * LEEP (LOOP ELECTROSURGICAL EXCISION PROCEDURE): POST-OP (TURKMEN) * Coronavirus Disease (COVID-19): General Info ([place]) documented in this encounter Assessments Diagnosis Pain [...] GESTATION Rj Aguilar, DO [address] [place] [address] Status Reason Specialty Diagnoses / Procedures Referre d By Contact Referred To Contact Open Radiology Diagnoses Amenorrhea Procedures US OB Transvaginal Rj Aguilar, DO [address] [place] [address] Status Reason Specialty Diagnoses / Procedures Referre d By Contact Referred To Contact Open Radiology Diagnoses Amenorrhea Procedures US OB TRANSVAGINAL Rj Aguilar, DO [address] [place] [address] Status Reason Specialty Diagnoses / Procedures Referred By Contact Referred To Contact Not Required - Recondo Radiology Diagnoses Amenorrhea Procedures US OB 14 Plus Weeks Single or First Gestation HC US OB GREATER THAN 14 WEEKS SINGLE FETUS Rj Aguilar, DO [address] [place] [address] Status Reason Specialty Diagnoses / Procedures Referre d By Contact Referred To Contact Closed Diagnoses Heart palpitations Procedures Holter Monitor 48 Hour Nikki Mcgovern PA-C [address] [place] [address] History of Present Illness * Rj Aguilar, [...] 50 mL IVPB (duplex), 2 g, Intravenous, Poultry Farm Supervisor to [place], Rj Diaz DO meperidine (DEMEROL) [...] mL, Intravenous, 2 times per day, Junior uFentes MD sodium chloride flush 0.9 % injection 10 mL, 10 mL, Intravenous, PRN, Junior Fuentes MD lidocaine PF 1 % injection 1 mL, 1 mL, Intradermal, Once PRN, Junior Fuentes MD OB History: [employer] History: 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 Past Surgical History: Past Surgical History: Procedure Laterality Date SECTION 2013 SECTION N/A 11/02/2019 SECTION performed by Rj Aguilar DO at [facility] L&D OR COLONOSCOPY 09/03/14 w/bx Social History: [...] section and content) DATE CREATED AUTHOR 08/21/2017 for; to (do) DATE CREATED AUTHOR AUTHOR'S ORGANIZ ATION 10/01/2018 [facility] DATE CREATED AUTHOR AUTHOR'S ORGANIZ ATION 09/01/2021 [facility] DATE CREATED AUTHOR AUTHOR'S ORGANIZ ATION 12/04/2021 [facility] DATE CREATED AUTHOR AUTHOR'S ORGANIZ ATION 07/31/2022 [facility] DATE CREATED AUTHOR AUTHOR'S ORGANIZ ATION 01/31/2023 [facility] DATE CREATED AUTHOR AUTHOR'S ORGANIZ ATION 03/12/2023 [facility] EPIC DATE CREATED AUTHOR AUTHOR'S ORGANIZ ATION 03/25/2023 [facility] Reason for Visit (unrecogniz ed section and content) Reason Comments Eye Problem left scleara red, kiran yi denies yellow drainage but states she does have some itching. Status Reason Specialty Diagnoses / Procedures Referre d By Contact Referred To Contact Open Radiology Diagnoses Amenorrhea Procedures US OB LESS THAN 14 WEEKS SINGLE OR FIRST GESTATION Rj Aguilar DO [address] [place] [address] Status Reason Specialty Diagnoses / Procedures Referred By Contact Referred To Contact Not Required - Recondo Radiology Diagnoses Amenorrhea Procedures US OB 14 Plus Weeks Single or First Gestation HC US OB GREATER THAN 14 WEEKS SINGLE FETUS Rj Aguilar DO [address] [place] [address] Reason Comments Other Scheduled C/S Status Reason Specialty Diagnoses / Procedures Referre d By Contact Referred To Contact Diagnoses Status post repeat low transverse section repeat Procedures OR DELIVERY ONLY SECTION Rj Aguilar, DO [address] [place] [address] [facility] Status Reason Specialty Diagnoses / Procedures Re ferred By Contact Referred To Contact Diagnoses HGSIL Pap smear of anus HGSIL Procedures OR COLPOSCOPY,ENTIRE VAGINA LOOP ELECTROSURGICAL EXCISION PROCEDURE COLPOSCOPY, ECC (PAT ON ADMIT) RAPID COVID Rj Aguilar, DO [address] [place] [address] [facility] Status Reason Specialty Diagnoses / Procedures Referre d By Contact Referred To Contact Closed Diagnoses Heart palpitations Procedures Holter Monitor 48 Hour Nikki Mcgovern PA-C [address] [place] [address] Reason Comments Dental Pain right upper gum [...] 28 capsule 0 10/28/2021 11/04/2021 nystatin (MYCOSTATIN) [id number] UNIT/GM powder Apply topically 2 times daily [...] 4 mg, IntraVENous, ONCE, 1 dose, On 08/21/21 at 0129 [id number] (Held - Provide r: [...] Care Teams (unrecognized sec tion and content) Crane Oiler Relationship Specialty Start Date End Date Nikki Mcgovern PA-C PCP - General 03/29/15 [employer] Relationship Specialty Start Date End Date Nikki Mcgovern PA-C PCP - General 03/29/15 Crane [employer] Relationship Specialty Start Date End Date Nikki Mcgovern PA-C PCP - General 03/29/15 Crane Oiler Relationship Specialty Start Date End Date Omega-Nikki Hernandez PA-C PCP - General 03/29/15 FOR [...] BE BASED ON THE PRIMARY CLINICAL RECORDS. [facility] [employer], [facility]. provides no warranty or guarantee of the accuracy or completeness of information in this document.
== END 2022-12-28 09:51 | disposition home or self-care (01) ==
LOC: US 09:50
PROVIDERS: Visit Provider Obstetrics & Gynecology
DX: Z34.92 Encounter for supervision of normal pregnancy, unspecified, second trimester (principal)
CPT/HCPCS: 76815

== ENCOUNTER 2023-03-18 07:19 | Outpatient (OUT) | payer OTHER, SELFPAY ==
--- OUTSIDE RECORDS SUMMARY | 2023-03-18 07:23 | XMS_ITS | CCD ---
Author Name Unknown Address [address] [place] [address] Organization [facility] Care Team Providers Care Assessment Manager Name Role Phone Nikki Mcgovern Primary Care Provider NIKKI MCGOVERN Primary Care Unavailabl e RonaDavidAngeles hudson PA-Cl Primary Care Provider Nikki Mcgovern PA-C Primary Care Provider ANGELES MCGOVERNL Primary Care Unavailabl e PENNY RITTER Attending Unavailable LILIANA CARROLL Referring Unavail able MARTHA-DAVID, NIKKI Primary Care Unavailabl e MARTHA-DAVID, NIKKI Primary Care Unavailabl e SULEMA TERAN Attending Unavailable MARTHA-DAVID, NIKKI Primary Care Unavailabl e MARTHA-DAVID, NIKKI Primary Care Unavailabl SULEMA Clemens Attending Unavailable NIKKI MCGOVERN Primary Care Physician Yennifer vailable MARTHA-DAVID, NIKKI Primary Care Unavailabl e SETH, Jose F R Referring Unavailable SETH, Jose F R Attending Unavailable SETH, Jose F R Admitting Unavailable SETH, Jose F R Admitting Unavailable MARTHA-DAVID, NIKKI Primary Care Unavailabl e SETH, Jose F R Attending Unavailable SETH, Jose F R Admitting Unavailable MARTHA-DAVID, NIKKI Primary Care Unavailabl e SETH, Jose F R Attending Unavailable DONNELL FINCH Attending Unavailable JOSE F ANN Attending Unavailable JOSE F ANN Attending Unavailable Allergies Allergy Classification Reported Allergen(s) Allergy Type Date of Onset Reaction(s) Facility (2 sources) Acetaminophen / oxyCODONE Drug Allergy [facility] Work Phone: (2 sources) traMADol Drug Allergy [facility] Work Phone: (1 source) No Known Medication Allergies; Translations: [No Known Medication Allergies] Propensity to adverse reactions (disorder) [facility] Repository Medications Current Medications Medication Drug Class(es) Dates Sig (Normalized) Sig (Original) acetaminophen 325 mg / HYDROcodone bitartrate 5 mg oral tablet (1 source) Opioid Agonist Start: 02-29-2020 End: 03-03-2020 take 1 tablet by mouth every six hours as needed for pain, then take 1 tablet by mouth as needed for pain HYDROcodone-acetami nophen (NORCO) 5-325 MG per tablet Indications: Postoperative pain Take 1 tablet by mouth every 6 hours as needed for Pain for up to 3 days. Intended supply: 3 days. Take lowest dose possible to manage pain 12 tablet 0 02/29/2020 03/03/2020 Active acetaminophen 325 mg / oxyCODONE hydrochloride 5 mg oral tablet (5 sources) Opioid Agonist Start: 11-04-2019 End: 11-09-2019 take 1 tablet by mouth every six hours as needed for pain, then take 1 tablet by mouth as needed for pain oxyCODONE-acetamino phen (PERCOCET) 5-325 MG per tablet Indications: Postoperative pain Take 1 tablet by mouth every 6 hours as needed for Pain for up to 5 days. Intended supply: 5 days. Take lowest dose possible to manage pain 20 tablet 0 11/04/2019 11/09/2019 Active Start: 11-02-2019 oxyCODONE-acet aminophen (PERCOCET) 5-325 MG per tablet 1 tablet Start: 01-22-2017 Percocet 325 m g-5 mg Tab 2 tab(s), Oral, q6hr Pain - Moderate, 30 tab(s), Refill(s) 0, [id number] Start Date: 01/22/17 Status: Ordered albuterol HFA 90 mcg/inh MDI (3 sources) Start: 04-04-2017 take 2 puff(s) by inhalation every four hours for wheezing albuterol HFA 90 mcg/inh MDI 2 puff(s), Inhalation, q4hr for wheezing, 8.5 gram, Refill(s) 0 Start Date: 04/04/17 Status: Ordered amoxicillin 875 mg / clavulanate 125 mg oral tablet (1 source) Penicillin-class Antibacterial Start: 04-11-2022 End: 04-21-2022 take 1 tablet by mouth twice daily amoxicillin-clav ulanate (AUGMENTIN) 875-125 MG per tablet Indications: Tonsillitis with exudate Take 1 tablet by mouth 2 times daily for 10 days 20 tablet 0 04/11/2022 04/21/2022 Active armodafinil 150 mg oral tablet (4 sources) take 1 tablet by mouth once daily Armodafinil (NUVIGIL) 150 MG TABS tablet Take 150 mg by mouth daily. 0 Active bisacodyl 10 mg rectal suppository (1 source) Stimulant Laxative Start: 11-02-2019 take 10 mg rectal route once daily as needed for constipation 10 mg, Rectal, DAILY PRN, Constipation, Starting 11/02/19 at 1226, calcium chloride 0.0014 meq/ml / potassium chloride 0.004 meq/ml / sodium chloride 0.103 meq/ml / sodium lactate 0.028 meq/ml injectable solution (5 sources) Start: 02-29-2020 Intravenous, at 125 mL/hr, CONTINUOUS, Starting Sat02/29/20 at 1245, Post-op Start: 02-29-2020 lactated ringe rs infusion Start: 11-02-2019 Intravenous, a t 125 mL/hr, CONTINUOUS, Starting Sat11/02/19 at 1245, Start: 11-02-2019 End: 11-02-2019 lactated ringers infusion cephalexin 500 mg oral capsule (3 sources) Cephalosporin Antibacterial Start: 12-16-2021 End: 12-21-2021 take 1 capsule by mouth four times daily cephALEXin (KEFLEX) 500 MG capsule Take 1 capsule by mouth 4 times daily for 5 days 20 capsule 0 12/16/2021 12/21/2021 Active Start: 10-28-2021 End: 11-04-2021 take 1 capsule by mouth four times daily cephALEXin (KEFLEX) 500 MG capsule Take 1 capsule by mouth 4 times daily for 7 days 28 capsule 0 10/28/2021 11/04/2021 Active cetirizine hydrochloride 10 mg oral tablet (1 source) Histamine-1 Receptor Antagonist Start: 11-03-2019 cetirizine (ZYRTEC) tablet 10 mg clindamycin 300 mg oral capsule (1 source) Lincosamide Antibacterial Start: 11-05-2020 End: 11-15-2020 take 1 capsule by mouth three times daily clindamycin (CLEOCIN) 300 MG capsule Take 1 capsule by mouth 3 times daily for 10 days 30 capsule 0 11/05/2020 11/15/2020 Active Delsym 12 Hour Cough Relief (3 sources) Start: 01-21-2017 Delsym 12 Hour Cough Relief Refills(s) 0 Start Date: 01/21/17 Status: Ordered 1 ml diphenhydrAMINE hydrochloride 50 mg/ml cartridge (1 source) Histamine-1 Receptor Antagonist Start: 02-29-2020 End: 02-29-2020 diphenhydrAMINE (BENADRYL) injection 12.5 mg docusate sodium 100 mg oral capsule (4 sources) Start: 01-22-2017 take 1 capsule by mouth twice daily Colace 100 mg Cap 100 mg = 1 cap(s), Oral, BID, # 60 cap(s), Refills(s) 0, Pharmacy: [id number] Start Date: 01/22/17 Status: Ordered Ethinyl Estradiol / Ferrous fumarate / Norethindrone (4 sources) Estrogen Start: 11-24-2019 take 1 tablet by mouth once daily, then take 0.05-1 tablets by mouth once norethindrone-ethiny l estradiol (LOESTRIN FE 03/02) 1-20 MG-MCG per tablet Take 1 tablet by mouth daily 3 packet 3 11/24/2019 Active ethinyl estradiol 0.035 mg / norethindrone acetate 1 mg oral tablet (5 sources) Estrogen Start: 07-28-2020 take 1 tablet by mouth once daily norethindrone-ethiny l estradiol (NORINYL 1+35, 28,) 1-35 MG-MCG per tablet Take 1 tablet by mouth daily 1 packet 3 07/28/2020 Active Start: 01-22-2017 Ortho-Novum 1/ 35 oral tablet 1 tab(s), Oral, Daily, 84 tab(s), Refill(s) 5, Start 3 weeks after delivery, [id number] Start Date: 01/22/17 Status: Ordered 2 ml fentaNYL 0.05 mg/ml injection (1 source) Opioid Agonist Start: 02-29-2020 fentaNYL (SUBLIMAZE) injection 50 mcg fluconazole 150 mg oral tablet (2 sources) Azole Antifungal Start: 11-12-2019 fluconazole (DIFLUCAN) 150 MG tablet Take 1 tablet by mouth every 3 days 3 tablet 1 11/12/2019 Active guaiFENesin 20 mg/ml oral solution (3 sources) Start: 03-01-2021 take 10 mL by mouth every four hours as needed for cough guaiFENesin (ALTARUSSIN) 100 MG/5ML syrup Indications: Cough , COVID Take 10 mLs by mouth every 4 hours as needed for Cough or Congestion 400 mL 0 03/01/2021 Active 1 ml HYDROmorphone hydrochloride 1 mg/ml cartridge (2 sources) Opioid Agonist Start: 02-29-2020 take 0.5 mg by mouth every three hours as needed for pain 0.5 mg, Intravenous, EVERY 3 HOURS PRN, Pain Severe (7-10), Starting 02/29/20 at 1215 If oral and IV narcotics ordered, use oral first and only use IV if oral is ineffective or cannot take oral. &nb sp;Do Not give oral and IV within 1 hour of each other unless specifically ordered. Post-op ibuprofen 400 mg oral tablet (11 sources) Nonsteroidal Anti-inflammatory Drug Start: 11-04-2019 take 1 tablet by mouth four times daily as needed for pain ibuprofen (ADVIL;MOTRIN) 600 MG tablet Take 1 tablet by mouth 4 times daily as needed for Pain 40 tablet 0 11/04/2019 Active Start: 04-30-2017 take 1 tablet by mario th every six hours ibuprofen 400 mg Tab 400 mg = 1 tab(s), Oral, q6hr, # 20 tab(s), Refills(s) 0, [facility]acy: [facility] Start Date: 04/30/17 Status: Ordered Start: 01-22-2017 take 1 tablet by mario th every eight hours as needed for pain ibuprofen 800 mg Tab 800 mg = 1 tab(s), Oral, q8hr, PRN Pain - Mild, # 40 tab(s), Refills(s) 0, Pharmacy: [id number] Start Date: 01/22/17 Status: Ordered 1 ml ketorolac tromethamine 30 mg/ml cartridge (2 sources) Nonsteroidal Anti-inflammatory Drug, Cyclooxygenase Inhibitor Start: 02-29-2020 End: 03-02-2020 30 mg, Intravenous, EVERY 6 HOURS, First dose on Sat02/29/20 at 1245, For 8 doses Do not administer for more than 5 days. Post-op Start: 11-02-2019 End: 11-04-2019 30 mg, Intravenous, EVERY 6 HOURS, First dose on 11/02/19 at 1245, For 8 doses Do not administer for more than 5 days. lansinoh lanolin ointment (1 source) Start: 11-02-2019 Topical, EVERY 1 HOUR PRN, Dry Skin, nipple discomfort, Starting Sat11/02/19 at 1226, 10 ml lidocaine hydrochloride 10 mg/ml injection (1 source) Antiarrhythmic, Amide Local Anesthetic Start: 02-29-2020 End: 02-29-2020 lidocaine PF 1 % injection 1 mL 1 ml meperidine hydrochloride 25 mg/ml cartridge (1 source) Opioid Agonist Start: 02-29-2020 meperidine (DEMEROL) injection 12.5 mg methylphenidate hydrochloride 10 mg oral tablet (6 sources) Central Nervous System Stimulant Start: 03-29-2022 End: 04-28-2022 take 1 tablet by mouth twice daily methylphenidate (RITALIN) 10 MG tablet Indications: Shift work sleep disorder Take 1 tablet by mouth 2 times daily for 30 days. Take 10 mg by mouth 2 times daily. 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 90 tablet 0 10/25/2021 11/24/2021 Active take 1 tablet by mario twice daily methylphenidate (RITALIN) 10 MG tablet Take 10 mg by mouth 2 times daily. 0 Active methylPREDNISolone 4 mg oral tablet (1 source) Corticosteroid Start: 04-11-2022 methylPREDNISolone (MEDROL, JUAN,) 4 MG tablet Indications: Tonsillitis with exudate Take by mouth. 1 kit 0 04/11/2022 Active 2 ml metoclopramide 5 mg/ml prefilled syringe (1 source) Dopamine-2 Receptor Antagonist Start: 02-29-2020 End: 02-29-2020 metoclopramide (REGLAN) injection 10 mg Mupirocin (3 sources) RNA Synthetase Inhibitor Antibacterial Start: 10-13-2017 mupirocin topical 2% ointment 1 abiel, Topical, TID, 22 gram, Refill(s) 0 Start Date: 10/13/17 Status: Ordered nystatin 100 unt/mg topical powder (2 sources) Polyene Antifungal Start: 10-28-2021 nystatin (MYCOSTATIN) [id number] UNIT/GM powder Apply topically 2 times daily Apply topically 4 times daily. 15 g 0 10/28/2021 Active omeprazole 20 mg delayed release oral capsule (5 sources) Proton Pump Inhibitor Start: 08-29-2021 take 1 capsule by mouth once daily before breakfast omeprazole (PRILOSEC) 20 MG delayed release capsule Take 1 capsule by mouth every morning (before breakfast) 30 capsule 5 08/29/2021 Active Start: 08-21-2021 End: 09-20-2021 take 2 capsules by mouth once daily omeprazole (PRILOSEC) 20 MG delayed release capsule Take 2 capsules by mouth Daily 60 capsule 0 08/21/2021 Active ondansetron 4 mg disintegrating oral tablet (3 sources) Serotonin-3 Receptor Antagonist Start: 08-21-2021 End: 08-28-2021 inject 1 tablet by subcutaneous injection every eight hours as needed for nausea ondansetron (ZOFRAN-ODT) [address] 1 tablet under the tongue every 8 hours as needed for Nausea or Vomiting May Sub regular tablet (non-ODT) if insurance does not cover ODT. 20 tablet 0 08/21/2021 08/28/2021 Active Start: 02-29-2020 End: 02-29-2020 ondansetron (ZOFRAN) injecti on 4 mg Start: 11-02-2019 4 mg, Intraven ous, EVERY 6 HOURS PRN, Nausea, Starting Sat11/02/19 at 1226, oxytocin (PITOCIN) 30 units in 500 mL infusion (1 source) Start: 11-02-2019 1 gaston-units/ min (1 mL/hr), Intravenous, at 1 mL/hr, CONTINUOUS, Starting Sat11/02/19 at 1245 For Post Use Only Give 166ml (10 units) bolus, followed by 50ml/hr (3 units/hr). May stop if bleeding returns to normal. Give after delivery of placenta. Prenat w/o O-TeFql-RAN-FA-DHA (PRENAISSANCE PLUS) 28-1-250 MG CAPS (4 sources) Start: 06-03-2019 take 1 tablet by mouth once daily Prenat w/o L-VnLwo-NIQ-FA-DHA (PRENAISSANCE PLUS) 28-1-250 MG CAPS Take 1 tablet by mouth daily 30 capsule 11 06/03/2019 Suspended Start: 06-03-2019 take 1 tablet by mario th once daily Prenat w/o Q-GsQee-KXB-FA-DHA (PRENAISSANCE PLUS) 28-1-250 MG CAPS Take 1 tablet by mouth daily 30 capsule 11 06/03/2019 Active Vit-Fe Fumarate-FA ( VITAMIN) 27-0.8 MG TABS (3 sources) Start: 05-29-2019 take 1 tablet by mouth once daily Vit-Fe Fumarate-FA ( VITAMIN) 27-0.8 MG TABS Take 1 tablet by mouth daily 30 tablet 9 05/29/2019 Active Start: 04-07-2019 take 1 tablet by mario th once daily Vit-Fe Fumarate-FA ( VITAMIN) 27-0.8 MG TABS Indications: Amenorrhea Take 1 tablet by mouth daily Please dispense what patient's insurance will cover. 30 tablet 11 04/07/2019 Active Promethazine (1 source) Phenothiazine Start: 02-29-2020 promethazine (PHENERGAN) tablet 12.5 mg 72 hr scopolamine 0.0139 mg/hr transdermal system (1 source) Anticholinergic Start: 11-02-2019 scopolamine (TRANSDERM-SCOP) transdermal patch 1 patch sertraline 100 mg oral tablet (20 sources) Serotonin Reuptake Inhibitor Start: 10-19-2021 take 1 tablet by mouth once daily sertraline (ZOLOFT) 100 MG tablet Take 1 tablet by mouth daily 30 tablet 3 10/19/2021 Active Start: 05-28-2019 take 1 tablet by mario th once daily sertraline (ZOLOFT) 50 MG tablet Take 1 tablet by mouth daily 30 tablet 5 05/28/2019 Active Start: 11-29-2015 End: 09-30-2018 take 1 tablet by mouth once daily sertraline (ZOLOFT) 100 MG tablet Take 1 tablet by mouth daily 30 tablet 3 04/15/2021 Active solriamfetol 75 mg oral tablet (3 sources) Start: 07-11-2021 take 1 tablet by mouth once daily Solriamfetol HCl (SUNOSI) 75 MG TABS Indications: Hypersomnolence Take 75 mg by mouth daily 30 tablet 0 07/11/2021 Active traMADol hydrochloride 50 mg oral tablet (1 source) Opioid Agonist Start: 11-05-2020 End: 11-08-2020 traMADol (ULTRAM) 50 MG tablet Indications: Dental abscess Take 1 tablet by mouth every 6 hours as needed for Pain for up to 3 days. Intended supply: 3 days. Take lowest dose possible to manage pain 12 tablet 0 11/05/2020 11/08/2020 Active Tylenol Cold Multi-Symptom Severe oral tablet (3 sources) Start: 01-21-2017 Tylenol Cold Multi-Symptom Severe oral tablet 2 tab(s), Oral, q4hr for cold symptoms, 24 tab(s), Refill(s) 0 Start Date: 01/21/17 Status: Ordered Completed/Discontinued Medications Medication Drug Class(es) Dates Sig (Normalized) Sig (Original) SANDRA AH 3 GM 1 each (1 source) Start: 11-02-2019 End: 11-02-2019 SANDRA AH 3 GM 1 each 2 ml famotidine 10 mg/ml injection (1 source) Histamine-2 Receptor Antagonist Start: 11-02-2019 End: 11-02-2019 famotidine (PEPCID) injection 20 mg famotidine (PEPCID) 20 mg in sodium chloride (PF) 10 mL injection (1 source) Start: 08-21-2021 End: 08-21-2021 famotidine (PEPCID) 20 mg in sodium chloride (PF) 10 mL injection hydrocortisone 25 mg/ml topical cream (3 sources) Corticosteroid Start: 04-07-2019 End: 11-02-2019 hydrocortisone 2.5 % cream Apply topically 2 times daily. 20 g 0 04/07/2019 11/02/2019 Discontinued (LIST CLEANUP) iopamidol (ISOVUE-370) 76 % injection 100 mL (1 source) Start: 08-21-2021 End: 08-21-2021 iopamidol (ISOVUE-370) 76 % injection 100 mL iopamidol (ISOVUE-370) 76 % injection 75 mL (1 source) Start: 10-28-2021 End: 10-28-2021 iopamidol (ISOVUE-370) 76 % injection 75 mL loratadine 10 mg oral tablet (2 sources) Start: 04-08-2017 End: 09-30-2018 take 1 tablet by mouth once daily loratadine (CLARITIN) 10 MG tablet Take 1 tablet by mouth daily 30 tablet 3 04/09/2017 09/30/2018 Discontinued (LIST CLEANUP) [id number] (PRENATE AM PO) (1 source) End: 09-30-2018 [id number] (PRENATE AM PO) Take by mouth 0 09/30/2018 Discontinued (LIST CLEANUP) Multivitamins with Folic Acid 1 mg oral tablet (3 sources) Start: 07-26-2016 Multivitamins with Folic Acid 1 mg oral tablet 1 tab(s), Oral, Daily, 100 tab(s), Refill(s) 0, [id number] Start Date: 07/26/16 Status: Ordered 50 ml sodium chloride 9 mg/ml injection (7 sources) Start: 08-21-2021 End: 08-21-2021 0.9 % sodium chloride bolus Start: 02-29-2020 10 mL, Intrave nous, EVERY 12 HOURS SCHEDULED (2 times per day), First dose on Sat02/29/20 at 2100, Post-op Start: 02-29-2020 take 10 mL intravenous route o nce 10 mL, Intravenous, PRN, Line Care, Starting Sat02/29/20 at 1215 After every IV line use Post-op Start: 02-29-2020 sodium chlorid e flush 0.9 % injection 10 mL Start: 11-02-2019 10 mL, Intrave nous, EVERY 12 HOURS SCHEDULED (2 times per day), First dose on Sat11/02/19 at 2100, Start: 11-02-2019 take 10 mL intravenous route o nce 10 mL, Intravenous, PRN, Line Care, Starting Sat11/02/19 at 1226 After every IV line use tetracaine hydrochloride 5 mg/ml ophthalmic solution (1 source) [facility] Local Anesthetic Start: 09-30-2018 End: 09-30-2018 tetracaine (TETRAVISC) 0.5 % ophthalmic solution 2 drop Problems Active Problems Problem Classification Problem Date Documented Date Episodic/Chronic Anxiety disorders (3 sources) Anxiety 01-17-2017 Chronic Cardiac dysrhythmias (1 source) Palpitations; Translations: [Palpitations] Episodic Disorders of teeth and jaw (1 source) Dental abscess; Translations: [Periapical abscess without sinus] Episodic Menstrual disorders (2 sources) Amenorrhea; Translations: [Amenorrhea] Chronic Miscellaneous mental health disorders (13 sources) Sleep terror disorder; Translations: [Sleep terrors [night terrors]] Onset: 03-24-2014 03-24-2014 Chronic Mood disorders (13 sources) Depressive disorder; Translations: [Major depressive disorder, single episode, unspecified] Onset: 03-24-2014 03-24-2014 Chronic Other eye disorders (1 source) Pain around eye; Translations: [Pain around left eye] Episodic Other female genital disorders (1 source) Other specified abnormal uterine and vaginal bleeding; Translations: [Other specified abnormal uterine and vaginal bleeding] Onset: 07-31-2022 Chronic Other nervous system disorders (5 sources) Narcolepsy without cataplexy ; Translations: [Narcolepsy without cataplexy] Onset: 09-16-2020 09-16-2020 Chronic Other nervous system disorders (4 sources) Circadian rhythm sleep disorder of shift work type; Translations: [Circadian rhythm sleep disorder, shift work type] Onset: 01-20-2021 01-20-2021 Chronic Other nervous system disorders (12 sources) Postoperative pain ; Translations: [Other acute postprocedural pain] 11-04-2019 Episodic Other non-traumatic joint disorders (1 source) Pain in left shoulder; Translations: [Pain in left shoulder] Onset: 11-29-2021 Episodic Other and delivery including normal (12 sources) Term ; Translations: [Encounter for supervision of normal , unspecified, unspecified trimester] Onset: 01-09-2022 Resolved: 04-09-2022 11-02-2019 Episodic Residual codes; unclassified (16 sources) Sleep paralysis; Translations: [Other sleep disorders] Onset: 03-24-2014 03-24-2014 Chronic Residual codes; unclassified (5 sources) REM sleep behavior disorder; Translations: [REM sleep behavior disorder] Onset: 09-16-2020 09-16-2020 Chronic Residual codes; unclassified (4 sources) Hypersomnia; Translations: [Hypersomnia, unspecified] Onset: 01-20-2021 01-20-2021 Chronic Residual codes; unclassified (4 sources) H/O: section; Translations: [Previous section] 11-02-2019 Episodic Substance-related disorders (3 sources) Smoker 06-15-2016 Chronic Comment on above: Added secondary to d ocumentation in Social History. Past or Other Problems Problem Classification Problem Date Documented Date Episodic/Chronic Acute and chronic tonsillitis (3 sources) Tonsillitis; Translations: [Acute tonsillitis, unspecified] Onset: 04-11-2022 Episodic E Codes: Natural/environment (2 sources) Bitten by mouse, initial encounter; Translations: [Open wound(s) (multiple) of unspecified site(s), without mention of complication] Onset: 12-16-2021 Episodic Gastritis and duodenitis (2 sources) Acute gastritis; Translations: [Acute gastritis without bleeding] Onset: 08-21-2021 Episodic Residual codes; unclassified (11 sources) Gestation period, 39 weeks; Translations: [39 weeks gestation of ] Resolved: 04-09-2022 11-02-2019 Episodic Skin and subcutaneous tissue infections (2 sources) Cellulitis of trunk; Translations: [Cellulitis of trunk, unspecified] Onset: 10-28-2021 Episodic Unclassified (3 sources) Streptococcus agalactiae (organism) Resolved: 11-29-2016 02-19-2017 Unclassified (9 sources) Onset: 06-13-2010 Resolved: 01-21-2017 02-19-2017 Results Test Name Value Interpretation Reference Range Facility US After 1st Trime steron 01-30-2023 US After 1st Trimester Exam Date/Time: 01/29/2023 22:10 EST Reason for Exam: Z36.89 Report IMPRESSION: SINGLE LIVE INTRAUTERINE WITH ESTIMATED SONOGRAPHIC GESTATIONAL AGE 26 WEEKS, 5 DAYS. PELVIC SONOGRAPHY. US After 1st Trimester: 01/29/2023 6:50 PM CLINICAL HISTORY: Z36.89. . FINDINGS: Single live intrauterine . heart rate 134 bpm. Cephalic position. somatic movement identified. Grade 1 anterior placenta. LORI 14.9 cm. Cervical length 3.9 cm. Estimated sonographic gestational age 26 weeks, 5 days. Facial age by dates, 26 weeks, 4 days. Sonographic estimated date of delivery May 02, 2023. Estimated weight 974 g (44% by LMP percentile) area * Biparietal Diameter: 6.6 cm * Head Circumference: 24.4 cm * Abdominal Circumference: 22.8 cm * Femur Length: 4.8 cm cerebral ventricles, choroid plexus, posterior fossa, upper lip, spine, kidneys, urinary bladder, four-chamber heart, left ventricular outflow tract, right ventricular outflow tract, diaphragm, stomach, three-vessel cord, cord insertion and extremities to 5. Ordering Provider: Jose F ANN FINAL REPORT Dictated: 01/30/2023 1:09 pm Vitor Bermudez MD Signed (Electronic Signature): 01/30/2023 1:09 pm Signed by: Vitor Bermudez MD Transcribed by: GERTRUDE Technologist: VIK Technical Comments PORTILLO 05-03-23 Technical Comments GA 26w4d History 5 Para 4 Patient History Hx Transabdominal Ultrasound Performed FHR (bpm) 134 Cervical Length (cm) 3.91 Placenta Location Anterior Positioning Vertex Amniotic Fluid Volume LORI (cm) 14.94 Normal Measurements BPD (cm) 6.60 HC (cm) 24.35 AC (cm) 22.80 FL (cm) 4.82 EFW (g) 974 Anatomy Brain Normal Heart Normal Kidneys. Normal Stomach Normal Bladder Normal 3VC Normal Spine Normal Extremities Normal Diaphragm Normal ACI Normal Normal [facility] CHEMISTRYOrdered By: SYSTEM SYSTEM on 01-29-2023 Glucose [Mass/Vol] 157 mg/dL High 55 - 140 mg/dL Remisol Chem Consent for Treatmenton 01-11 Consent for Treatment [id number] .00TIFF Normal [facility] Consent for Treatment [id number] .00TIFF Normal [facility] Gest Scr Glu 1 Hron 01-30-20 Glucose [Mass/Vol] 157 mg/dL High 55-140 [facility] Comment on above: Performed By: #### 2 [id number] #### [facility] [address] [place] [id number] Physician Orderon 01-29-2023 Physician Order [id number]# 1.00TIFF [facility] Physician Orderon 01-28-2023 Physician Order [id number]#1 .00TIFF Normal [facility] C Urineon 01-13-2023 Bacteria identified Cx Nom (U) Microbiology PROCEDURE: Urine Culture [R1] SOURCE: U [employer] BODY SITE: COLLECTED DATE/TIME: 01/11/2023 09:55 EST RECEIVED DATE/TIME: 01/11/2023 12:12 EST START DATE/TIME: 01/11/2023 12:12 EST FREE TEXT SOURCE: Jose F ANN DO, DO, Corey R FINAL REPORTS Final Report [] Verified Date/Time: 01/13/2023 07:08 EST 200 cfu/ml Mixed skin contaminants Performing Locations R1: This test was performed at: [facility], [address] [place] [address] [place], [address]- , [place], Normal [facility] Comment on above: Performed By: #### 2 [id number], [id number], [id number], [id number], 089639119, 226423716, 6894023, 5433772, 6323845 #### [facility] [address] [place] [address] .Interpretation:on HCV Ab IA Ql Comment Invalid Interpretation Code [facility] Comment on above: Result Comment: Not infected with HCV unless early or acute infection is suspected (which may be delayed in an immunocompromised individual), or other evidence exists to indicate HCV infection. Performed at: [facility] [id number] PhD Mariama Zaman Performed By: #### 2 [id number], [id number], 042274016, 2560562449, 927252959, 384770589, 8361777, 9593180, 1435364 #### [facility] [address] [place] [address] HCV Antibody RFX to Quant PC Johnny 01-12-2023 HCV IgG IA Ql Non-Reactive Invalid Interpretation Code Non Reactive [facility] Comment on above: Result Comment: Perf ormed at: [address] [id number] PhD Mariama Zaman Performed By: #### 2 [id number], 90690507, 355965408, 4062533348, 939133954, 612608415, 6907928, 8655846, 5272233 #### [facility] [address] [place] [address] HIV Screen 4th Generation wR fxon 01-12-2023 HIV 1+2 Ab+HIV1 p24 Ag IA Ql Non-Reactive Invalid Interpretation Code Non Reactive [facility] Comment on above: Result Comment: HIV Negative HIV-1/HIV-2 antibodies and HIV-1 p24 antigen were NOT detected. There is no laboratory evidence of HIV infection. Performed at: [address] [id number] PhD Mariama Zaman Performed By: #### 2 [id number], 48318239, 197632682, 1440008251, 123926585, 040424070, 9653882, 2096313, 0657522 #### [facility] [address] [place] [address] Hep Bs Agon 01-12-2023 HBV surface Ag IA Ql Negative Invalid Interpretation Code Negative [facility] Comment on above: Result Comment: Perf ormed at: [address] [id number] PhD Mariama Zaman Performed By: #### 2 [id number], 15436274, 360458320, 6599485425, 721185854, 211783719, 1309448, 7943908, 5160217 #### [facility] [address] [place] [address] RPR with Conf Rfxon 01-13-20 23 Reagin Ab RPR Ql (S) Non-Reactive Invalid Interpretation Code Non Reactive [facility] Comment on above: Result Comment: Perf ormed at: [address] [id number] PhD Mariama Zaman Performed By: #### 2 [id number], 70872744, 428254573, 7266427594, 627840342, 511281309, 8057119, 5965430, 8313860 #### [facility] [address] [place] [address] Rubella IgGon 01-12-2023 Rubella virus IgG Qn (S) 5.68 [IU]/mL Invalid Interpretation Code Immune >0.99 [facility] Comment on above: Result Comment: Non- immune <0.90 Equivocal 0.90 - 0.99 Immune >0.99 Performed at: [address] [id number] PhD Mariama Zaman Performed By: #### 2 [id number], 85314944, 755203117, 0941291778, 845986598, 362683005, 9621688, 9007802, 0982632 #### [facility] [address] [place] [address] ABO/Rhon 01-11-2023 ABO/Rh Positive Invalid Interpretation Code [facility] Comment on above: Performed By: #### 2 [id number], 27869648, 059827547, 4367831793, 047291776, 702836091, 1553237, 0503495, 7797224 #### [facility] [address] [place] [address] ABSCon 01-11-2023 ABSC Gel Interp Negative Normal [facility] Comment on above: Performed By: #### 2 [id number], 90031983, 114020894, 7233092792, 885518865, 760224732, 1550150, 3671267, 2047714 #### [facility] [address] [place] [address] BLOOD BANKOrdered By: Dylan Lemons on 01-11-2023 ABO/Rh Interp Positive Invalid Interpretation Code [facility] BB Subsection ABSC Gel Interp Negative (01/11/23 10:00 AM) Normal [facility] BB Subsection CBC w/IndicesOrdered By: López Jorgensen on 01-11-2023 Erythrocyte distribution width (RBC) [Ratio] 13.4 % Normal 10.9-14.2 [facility] Comment on above: Performed By: #### 2 [id number], 29632443, 790434956, 3333879204, 497161984, 702464306, 5046869, 0507860, 7576939 #### [facility] [address] [place] [address] Hematocrit (Bld) [Volume fraction] 34.4 % Normal 34.0-46.0 [facility] Comment on above: Performed By: #### 2 [id number], 18639182, 635513864, 5336653569, 427434786, 032767968, 2199085, 3241975, 9598364 #### [facility] [address] [place] [address] Hemoglobin (Bld) [Mass/Vol] 11.7 g/dL Low 12.0-16.0 [facility] Comment on above: Performed By: #### 2 [id number], 49784493, 625758933, 0984703075, 795146059, 359028845, 1392134, 2804947, 8191508 #### [facility] [address] [place] [address] MCH (RBC) [Entitic mass] 31.7 pg Normal 27.0-34.0 [facility] Comment on above: Performed By: #### 2 [id number], 05928684, 799296750, 8747546404, 041008546, 447144809, 5226090, 0682637, 3940449 #### [facility] [address] [place] [address] MCHC (RBC) [Mass/Vol] 33.9 g/dL Normal 31.4-36.0 [facility] Comment on above: Performed By: #### 2 707124409, 97459501, 920049398, 2245712859, 147255426, 996581700, 7464631, 0133879, 6555837 #### [facility] [address] [place] [address] MCV (RBC) [Entitic vol] 93.3 fL Normal 80.0-100.0 [facility] Comment on above: Performed By: #### 2 868545228, 04609794, 450917189, 4183927610, 667878376, 500839959, 7284170, 5700619, 1971676 #### [facility] [address] [place] [address] Platelet mean volume (Bld) [Entitic vol] 8.0 fL Normal 6.4-10.8 [facility] Comment on above: Performed By: #### 2 [id number], 85774109, 401767095, 9112295609, 497609513, 579239956, 2232219, 1175061, 6273115 #### [facility] [address] [place] [address] Platelets (Bld) [#/Vol] 171.0 E9/L Normal 150.0-500.0 [facility] Comment on above: Performed By: #### 2 611618751, 77850425, 519734049, 9991066391, 045180757, 909830380, 3762498, 8402548, 9877997 #### [facility] [address] [place] [address] RBC (Bld) [#/Vol] 3.7 E12/L Low 4.3-5.9 [facility] Comment on above: Performed By: #### 2 764959895, 37921268, 678383576, 4338510877, 397183529, 423986437, 0906407, 5861148, 4590078 #### [facility] [address] [place] [address] WBC corrected for nucl RBC Auto (Bld) [#/Vol] 11.7 E9/L High 4.0-11.0 [facility] Comment on above: Performed By: #### 2 684084307, 64255249, 173831762, 6153014765, 541948627, 136715516, 4571511, 5529973, 8327270 #### [facility] [address] [place] [address] Consent for Treatmenton Consent for Treatment [id number] .00TIFF Normal [facility] [id number] By: Liliana Dumont on 01-11-2023 HbA1c (Bld) [Mass fraction] 4.9 % Normal <=5.9 [facility] Comment on above: Performed By: #### 2 [id number], 73480697, 871389685, 3483663396, 294035580, 657681673, 4502244, 2599342, 5688077 #### [facility] [address] [place] [address] Physician Orderon 01-11-2023 Physician Order [id number]#1 .00TIFF Normal [facility] TSHOrdered By: SYSTEM SYSTEM on 01-11-2023 TSH Qn 1.30 m[IU]/L Normal 0.34-5.60 [facility] Rem[facility] Comment on above: Performed By: #### 2 [id number], 67862691, 657322349, 9940537807, 023769165, 701388132, 4256722, 6046475, 8768764 #### [facility] [address] [place] [address] Basic Metabolic Panelon 07-13 Calcium [Mass/Vol] 9.1 mg/dL Normal 8.5-9.9 [facility] Comment on above: Performed By: #### C BCWD #### [facility] [address] [place] [address] Chloride [Moles/Vol] 105 mmol/L Normal 95-107 [facility] Comment on above: Performed By: #### C BCWD #### [facility] [address] [place] [address] CO2 [Moles/Vol] 22 mmol/L Normal 20-[address] [facility] Comment on above: Performed By: #### C BCWD #### [facility] [address] [place] [address] Creatinine [Mass/Vol] 0.59 mg/dL Normal 0.50-0.90 [facility] Comment on above: Performed By: #### C BCWD #### [facility] [address] [place] [address] GFR >60.0 Normal >60 [facility] Comment on above: Result Comment: Christina atric calculator link https://www.kidney.org/professionals/kdoqi/gfr_calculatorped Effective Nov 13, 2021 These results are not intended for use in patients <18 years of age. eGFR results are calculated without a race factor using the 2020 CKD-EPI equation. Careful clinical correlation is recommended, particularly when comparing to results calculated using previous equations. The CKD-EPI equation is less accurate in patients with extremes of muscle mass, extra-renal metabolism of creatinine, excessive creatinine ingestion, or following therapy that affects renal tubular secretion. Performed By: #### C BCWD #### [facility] [address] [place] [address] Glucose [Mass/Vol] 110 mg/dL Critically high 70-99 [facility] Comment on above: Performed By: #### C BCWD #### [facility] [address] [place] [address] Potassium [Moles/Vol] 4.0 mmol/L Normal 3.4-4.9 [facility] Comment on above: Performed By: #### C BCWD #### [facility] [address] [place] [address] Sodium [Moles/Vol] 139 mmol/L Normal 135-144 [facility] Comment on above: Performed By: #### C BCWD #### [facility] [address] [place] [address] Urea nitrogen [Mass/Vol] 12 mg/dL Normal 6-20 [facility] Comment on above: Performed By: #### C BCWD #### [facility] [address] [place] [address] Anion gap [Moles/Vol] 12 mmol/L Normal 9-15 [facility] Comment on above: Performed By: #### C BCWD #### [facility] [address] [place] [address] CBC With Platelet and Differ entialon 07-31-2022 Abs Imm Granulocytes 0.0 K/uL Normal [facility] Comment on above: Performed By: #### C BCWD #### [facility] [address] [place] [address] Basophils (Bld) [#/Vol] 0.0 10*3/uL Normal 0.0-0.1 [facility] Comment on above: Performed By: #### C BCWD #### [facility] [address] [place] [address] Basophils/100 WBC (Bld) 0.4 % Normal 0.1-1.2 [facility] Comment on above: Performed By: #### C BCWD #### [facility] [address] [place] [address] Eosinophils (Bld) [#/Vol] 0.2 10*3/uL Normal 0.0-0.4 [facility] Comment on above: Performed By: #### C BCWD #### [facility] [address] [place] [address] Eosinophils/100 WBC (Bld) 2.6 % Normal 0.7-5.8 [facility] Comment on above: Performed By: #### C BCWD #### [facility] [address] [place] [address] Erythrocyte distribution width (RBC) [Ratio] 12.6 % Normal 11.7-14.4 [facility] Comment on above: Performed By: #### C BCWD #### [facility] [address] [place] [address] Hematocrit (Bld) [Volume fraction] 39.6 % Normal 37.0-47.0 [facility] Comment on above: Performed By: #### C BCWD #### [facility] [address] [place] [address] Hemoglobin (Bld) [Mass/Vol] 13.5 g/dL Normal 11.2-15.7 [facility] Comment on above: Performed By: #### C BCWD #### [facility] [address] [place] [address] Imm Granulocytes 0.3 % Normal [facility] Comment on above: Performed By: #### C BCWD #### [facility] [address] [place] [address] Lymphocytes (Bld) [#/Vol] 1.8 10*3/uL Normal 1.2-3.7 [facility] Comment on above: Performed By: #### C BCWD #### [facility] [address] [place] [address] Lymphocytes/100 WBC (Bld) 25.0 % Normal [facility] Comment on above: Performed By: #### C BCWD #### [facility] [address] [place] [address] MCH (RBC) [Entitic mass] 31.9 pg Normal 25.6-32.2 [facility] Comment on above: Performed By: #### C BCWD #### [facility] [address] [place] [address] MCHC 34.1 % Normal 32.2-35.5 [facility] Comment on above: Performed By: #### C BCWD #### [facility] [address] [place] [address] MCV (RBC) [Entitic vol] 93.6 fL Normal 79.4-94.8 [facility] Comment on above: Performed By: #### C BCWD #### [facility] [address] [place] [address] Monocytes (Bld) [#/Vol] 0.4 10*3/uL Normal 0.2-0.9 [facility] Comment on above: Performed By: #### C BCWD #### [facility] [address] [place] [address] Monocytes/100 WBC (Bld) 5.7 % Normal 4.7-12.5 [facility] Comment on above: Performed By: #### C BCWD #### [facility] [address] [place] [address] Neutrophils (Bld) [#/Vol] 4.9 10*3/uL Normal 1.6-6.1 [facility] Comment on above: Performed By: #### C BCWD #### [facility] [address] [place] [address] Neutrophils/100 WBC (Bld) 66.0 % Normal 34.0-71.1 [facility] Comment on above: Performed By: #### C BCWD #### [facility] [address] [place] [address] Platelets (Bld) [#/Vol] 193 10*3/uL Normal 182-369 [facility] Comment on above: Performed By: #### C BCWD #### [facility] [address] [place] [address] RBC (Bld) [#/Vol] 4.23 10*6/uL Normal 3.93-5.22 [facility] Comment on above: Performed By: #### C BCWD #### [facility] [address] [place] [address] WBC (Bld) [#/Vol] 7.4 10*3/uL Normal 4.0-10.0 [facility] Comment on above: Performed By: #### C BCWD #### [facility] [address] [place] [address] UR HCG Qualitativeon 023 Beta HCG ( test) Ql (U) Negative Normal Detects [facility] Comment on above: Performed By: #### C BCWD #### [facility] [address] [place] [address] Urinalysis, reflex to cultur minoo 07-31-2022 Urine Reflexed to Culture Not Indicated Normal [facility] Comment on above: Performed By: #### U AR #### [facility] [address] [place] [address] Bilirubin Ql (U) Negative Normal Negative [facility] Comment on above: Performed By: #### U AR #### [facility] [address] [place] [address] Clarity (U) Clear Normal Clear [facility] Comment on above: Performed By: #### U AR #### [facility] [address] [place] [address] Color (U) Yellow Normal Straw/[place] [facility] Comment on above: Performed By: #### U AR #### [facility] [address] [place] [address] Glucose Ql (U) Negative Normal Negative [facility] Comment on above: Performed By: #### U AR #### [facility] [address] [place] [address] Hemoglobin Ql (U) Large Normal Negative [facility] Comment on above: Performed By: #### U AR #### [facility] [address] [place] [address] Ketones Ql (U) Negative Normal Negative [facility] Comment on above: Performed By: #### U AR #### [facility] [address] [place] [address] Leukocyte esterase Test strip Ql (U) Negative Normal Negative [facility] Comment on above: Performed By: #### U AR #### [facility] [address] [place] [address] Nitrite Ql (U) Negative Normal Negative [facility] Comment on above: Performed By: #### U AR #### [facility] [address] [place] [address] pH (U) 5.5 [pH] Normal 5.0-9.0 [facility] Comment on above: Performed By: #### U AR #### [facility] [address] [place] [address] Protein Ql (U) Negative Normal Negative [facility] Comment on above: Performed By: #### U AR #### [facility] [address] [place] [address] Specific gravity (U) [Rel density] 1.015 Normal 1.005-1.03 [facility] Comment on above: Performed By: #### U AR #### [facility] [address] [place] [address] Urobilinogen Qn (U) 0.2 {Ginger'U}/dL Normal < 2.0 [facility] Comment on above: Performed By: #### U AR #### [facility] [address] [place] [address] Urine Microscopicon 08-01-19 23 Epithelial cells LM Ql (Urine sed) 3-5 Normal [facility] Comment on above: Performed By: #### U KAREEM #### [facility] [address] [place] [address] Urine Bacteria FEW Abnormal Negative [facility] Comment on above: Performed By: #### U KAREEM #### [facility] [address] [place] [address] Urine RBC 5-10 Abnormal 0-2 [facility] Comment on above: Performed By: #### U KAREEM #### [facility] [address] [place] [address] Urine WBC 0-2 Normal 0-5 [facility] Comment on above: Performed By: #### U KAREEM #### [facility] [address] [place] [address] Culture, Throaton 04-11-2022 Culture, Throat ORDER#: [id number] ORDERED BY: LILIANA CARROLL SOURCE: Throat Throat COLLECTED: 04/11/22 17:53 ANTIBIOTICS AT [facility].: RECEIVED : 04/11/22 21:00 Culture, Throat FINAL 04/14/22 10:27 Cult,Throat: Oral to, negative for Group A Strep and other beta Cult,Throat: hemolytic streptococci Performed at [address] [address] Normal [facility] Comment on above: Performed By: #### C BCWD #### [facility] [address] [place] [address] XR SHOULDER LEFT (MIN 2 VIEW S)on 11-29-2021 XR SHOULDER LEFT (MIN 2 VIEWS) EXAMINATION: THREE XRAY VIEWS OF THE LEFT SHOULDER 11/29/2021 9:01 am COMPARISON: None. HISTORY: ORDERING SYSTEM PROVIDED HISTORY: Acute pain of left shoulder TECHNOLOGIST PROVIDED HISTORY: Is the patient ?->No What reading provider will be dictating this exam?->CRC FINDINGS: There is no evidence of acute fracture or dislocation of the left shoulder. The glenohumeral joint and acromioclavicular joints are well maintained. No aggressive osseous lesions. IMPRESSION: No acute osseous abnormality Interpreted by: Vitor Riojas MD Signed by: Vitor Riojas MD 11/29/21 Final result Normal [facility] Bacterial susceptibility hager el by Christin 10-28-2021 Bacterial susceptibility panel KAREEM (Isol) ORDER#: [id number] ORDERED BY: SPRING OROZCO SOURCE: Incision COLLECTED: 10/28/21 16:45 ANTIBIOTICS AT [facility].: RECEIVED : 10/28/21 22:09 Culture, Wound Aerobic, Anaerobic FINAL 11/03/21 07:50 Direct Exam: NO NEUTROPHILS SEEN Direct Exam: NO BACTERIA SEEN Cult,Aerobe/Anaerobe: Mixed skin to Cult,Aerobe/Anaerobe: No anaerobic organisms isolated at 5 days. Performed at [place] [id number] ([phone] Acinetobacter species LIGHT GROWTH Acinetobacter baumannii LIGHT GROWTH Acineto sp. A. baumannii ANTIBIOTICS KAREEM Interp KAREEM Interp Ampicillin/Sulbactam <=2 S >=32 R Ceftriaxone 16 I 16 I Ciprofloxacin <=0.25 S <=0.25 S Gentamicin <=1 S <=1 S Tobramycin <=1 S <=1 S S=SUSCEPTIBLE I=INTERMEDIATE R=RESISTANT Normal [facility] Comment on above: Performed By: #### 5 0545-3 #### [facility] [address] [place] [address] Bacterial susceptibility panel KAREEM (Isol) ORDER#: [id number] ORDERED BY: SPRING OROZCO SOURCE: Incision COLLECTED: 10/28/21 16:45 ANTIBIOTICS AT [facility].: RECEIVED : 10/28/21 22:09 Culture, Wound Aerobic, Anaerobic PRELIM 11/03/21 07:15 Direct Exam: NO NEUTROPHILS SEEN Direct Exam: NO BACTERIA SEEN Cult,Aerobe/Anaerobe: Mixed skin to Cult,Aerobe/Anaerobe: No anaerobic organisms isolated at 5 days. Performed at [address] [place] [address] ([phone] Acinetobacter species LIGHT GROWTH Acineto sp. ANTIBIOTICS KAREEM Interp Ampicillin/Sulbactam <=2 S Ceftriaxone 16 I Ciprofloxacin <=0.25 S Gentamicin <=1 S Tobramycin <=1 S S=SUSCEPTIBLE I=INTERMEDIATE R=RESISTANT Normal [facility] Comment on above: Performed By: #### C BCWD #### [facility] [address] [place] [address] CBC With Platelet and Differ entialon 10-28-2021 Abs Imm Granulocytes 0.0 K/uL Normal [facility] Comment on above: Performed By: #### C BCWD #### [facility] [address] [place] [address] Basophils (Bld) [#/Vol] 0.0 10*3/uL Normal 0.0-0.1 [facility] Comment on above: Performed By: #### C BCWD #### [facility] [address] [place] [address] Basophils/100 WBC (Bld) 0.1 % Normal 0.1-1.2 [facility] Comment on above: Performed By: #### C BCWD #### [facility] [address] [place] [address] Eosinophils (Bld) [#/Vol] 0.3 10*3/uL Normal 0.0-0.4 [facility] Comment on above: Performed By: #### C BCWD #### [facility] [address] [place] [address] Eosinophils/100 WBC (Bld) 3.1 % Normal 0.7-5.8 [facility] Comment on above: Performed By: #### C BCWD #### [facility] [address] [place] [address] Erythrocyte distribution width (RBC) [Ratio] 12.8 % Normal 11.7-14.4 [facility] Comment on above: Performed By: #### C BCWD #### [facility] [address] [place] [address] Hematocrit (Bld) [Volume fraction] 40.9 % Normal 37.0-47.0 [facility] Comment on above: Performed By: #### C BCWD #### [facility] [address] [place] [address] Hemoglobin (Bld) [Mass/Vol] 13.6 g/dL Normal 11.2-15.7 [facility] Comment on above: Performed By: #### C BCWD #### [facility] [address] [place] [address] Imm Granulocytes 0.2 % Normal [facility] Comment on above: Performed By: #### C BCWD #### [facility] [address] [place] [address] Lymphocytes (Bld) [#/Vol] 1.8 10*3/uL Normal 1.2-3.7 [facility] Comment on above: Performed By: #### C BCWD #### [facility] [address] [place] [address] Lymphocytes/100 WBC (Bld) 16.5 % Normal [facility] Comment on above: Performed By: #### C BCWD #### [facility] [address] [place] [address] MCH (RBC) [Entitic mass] 31.1 pg Normal 25.6-32.2 [facility] Comment on above: Performed By: #### C BCWD #### [facility] [address] [place] [address] MCHC 33.3 % Normal 32.2-35.5 [facility] Comment on above: Performed By: #### C BCWD #### [facility] [address] [place] [address] MCV (RBC) [Entitic vol] 93.4 fL Normal 79.4-94.8 [facility] Comment on above: Performed By: #### C BCWD #### [facility] [address] [place] [address] Monocytes (Bld) [#/Vol] 0.6 10*3/uL Normal 0.2-0.9 [facility] Comment on above: Performed By: #### C BCWD #### [facility] [address] [place] [address] Monocytes/100 WBC (Bld) 5.2 % Normal 4.7-12.5 [facility] Comment on above: Performed By: #### C BCWD #### [facility] [address] [place] [address] Neutrophils (Bld) [#/Vol] 7.9 10*3/uL Critically high 1.6-6.1 [facility] Comment on above: Performed By: #### C BCWD #### [facility] [address] [place] [address] Neutrophils/100 WBC (Bld) 74.9 % Critically high 34.0-71.1 [facility] Comment on above: Performed By: #### C BCWD #### [facility] [address] [place] [address] Platelets (Bld) [#/Vol] 192 10*3/uL Normal 182-369 [facility] Comment on above: Performed By: #### C BCWD #### [facility] [address] [place] [address] RBC (Bld) [#/Vol] 4.38 10*6/uL Normal 3.93-5.22 [facility] Comment on above: Performed By: #### C BCWD #### [facility] [address] [place] [address] WBC (Bld) [#/Vol] 10.6 10*3/uL Critically high 4.0-10.0 [facility] Comment on above: Performed By: #### C TAVON #### [facility] [address] [place] [address] CBC with Auto Differentialon 10-28-2021 Basophils (Bld) [#/Vol] 0.0 10*3/uL 0 - 0.1 K/uL [facility] Basophils/100 WBC (Bld) 0.1 % 0.1 - 1.2 % [facility] Eosinophils (Bld) [#/Vol] 0.3 10*3/uL 0 - 0.4 K/uL [facility] Eosinophils/100 WBC (Bld) 3.1 % 0.7 - 5.8 % [facility] Hematocrit (Bld) [Volume fraction] 40.9 % 37 - 47 % [facility] Hemoglobin (Bld) [Mass/Vol] 13.6 g/dL 11.2 - 15.7 g/dL [facility] Immature granulocytes (Bld) [#/Vol] 0.0 10*3/uL [facility] Immature granulocytes/100 WBC (Bld) 0.2 % [facility] Interpretation and review of laboratory results Abnormal [facility] Lymphocytes (Bld) [#/Vol] 1.8 10*3/uL 1.2 - 3.7 K/uL [facility] Lymphocytes/100 WBC (Bld) 16.5 % [facility] MCH (RBC) [Entitic mass] 31.1 pg 25.6 - 32.2 pg [facility] MCHC (RBC) [Mass/Vol] 33.3 % 32.2 - 35.5 % [facility] MCV (RBC) [Entitic vol] 93.4 fL 79.4 - 94.8 fL [facility] Monocytes (Bld) [#/Vol] 0.6 10*3/uL 0.2 - 0.9 K/uL [facility] Monocytes/100 WBC (Bld) 5.2 % 4.7 - 12.5 % [facility] Neutrophils Absolute 7.9 K/uL High 1.6 - 6 .1 K/uL [facility] Neutrophils/100 WBC (Bld) 74.9 % High 34 - 71.1 % [facility] Platelet distribution width (Bld) [Ratio] 12.8 % 11.7 - 14.4 % [facility] Platelets (Bld) [#/Vol] 192 10*3/uL 182 - 369 K/uL [facility] RBC (Bld) [#/Vol] 4.38 10*6/uL [facility] WBC (Bld) [#/Vol] 10.6 10*3/uL High 4 - 10 K/uL [facility] CT ABDOMEN PELVIS W IV CONTR Luc 10-28-2021 CT ABDOMEN PELVIS W IV CONTRAST EXAMINATION: CT OF THE ABDOMEN AND PELVIS WITH CONTRAST 10/28/2021 4:56 pm TECHNIQUE: CT of the abdomen and pelvis was performed with the administration of intravenous contrast. Multiplanar reformatted images are provided for review. Automated exposure control, iterative reconstruction, and/or weight based adjustment of the mA/kV was utilized to reduce the radiation dose to as low as reasonably achievable. COMPARISON: None. HISTORY: ORDERING SYSTEM PROVIDED HISTORY: pain near healed ceserean section post lifting TECHNOLOGIST PROVIDED HISTORY: Reason for exam:->pain near healed ceserean section post lifting Additional Contrast?->None Decision Support Exception - unselect if not a suspected or confirmed emergency medical condition->Emergency Medical Condition (MA) What reading provider will be dictating this exam?->CRC FINDINGS: Lower Chest: Visualized portion of the lower chest demonstrates no acute abnormality. Organs: The liver, gallbladder, spleen, pancreas, adrenals, and kidneys are unremarkable. GI/Bowel: There is no evidence of bowel obstruction. No evidence of abnormal bowel wall thickening or distension. The appendix is normal. There is diverticulosis. Pelvis: The urinary bladder is distended. The uterus is unremarkable. There is a 2.4 cm left adnexal cyst. Peritoneum/Retroperit oneum: No evidence of ascites or free air. No evidence of lymphadenopathy. Aorta is normal in caliber. Bones/Soft Tissues: No acute abnormality of the visualized osseous structures. Postsurgical changes of prior . No soft tissue stranding or fluid at the surgical site. IMPRESSION: No acute abdominopelvic abnormality. Interpreted by: Melodie Ocampo MD Signed by: Melodie Ocampo MD 10/28/21 Final result Normal [facility] CT ABDOMEN PELVIS W IV CONTR AST Additional Contrast? Noneon 10-28-2021 No acute abdominopelvic abnormality. [facility] EXAMINATION: CT OF THE ABDOMEN AND PELVIS WITH CONTRAST 10/28/2021 4:56 pm TECHNIQUE: CT of the abdomen and pelvis was performed with the administration of intravenous contrast. Multiplanar reformatted images are provided for review. Automated exposure control, iterative reconstruction, and/or weight based adjustment of the mA/kV was utilized to reduce the radiation dose to as low as reasonably achievable. COMPARISON: None. HISTORY: ORDERING SYSTEM PROVIDED HISTORY: pain near healed ceserean section post lifting TECHNOLOGIST PROVIDED HISTORY: Reason for exam:->pain near healed ceserean section post lifting Additional Contrast?->None Decision Support Exception - unselect if not a suspected or confirmed emergency medical condition->Emergency Medical Condition (MA) What reading provider will be dictating this exam?->CRC FINDINGS: Lower Chest: Visualized portion of the lower chest demonstrates no acute abnormality. Organs: The liver, gallbladder, spleen, pancreas, adrenals, and kidneys are unremarkable. GI/Bowel: There is no evidence of bowel obstruction. No evidence of abnormal bowel wall thickening or distension. The appendix is normal. There is diverticulosis. Pelvis: The urinary bladder is distended. The uterus is unremarkable. There is a 2.4 cm left adnexal cyst. Peritoneum/Retroperit oneum: No evidence of ascites or free air. No evidence of lymphadenopathy. Aorta is normal in caliber. Bones/Soft Tissues: No acute abnormality of the visualized osseous structures. Postsurgical changes of prior . No soft tissue stranding or fluid at the surgical site. [facility] Melodie Ocampo MD - 10/28/2021 EXAMINATION: CT OF THE ABDOMEN AND PELVIS WITH CONTRAST 10/28/2021 4:56 pm TECHNIQUE: CT of the abdomen and pelvis was performed with the administration of intravenous contrast. Multiplanar reformatted images are provided for review. Automated exposure control, iterative reconstruction, and/or weight based adjustment of the mA/kV was utilized to reduce the radiation dose to as low as reasonably achievable. COMPARISON: None. HISTORY: ORDERING SYSTEM PROVIDED HISTORY: pain near healed ceserean section post lifting TECHNOLOGIST PROVIDED HISTORY: Reason for exam:->pain near healed ceserean section post lifting Additional Contrast?->None Decision Support Exception - unselect if not a suspected or confirmed emergency medical condition->Emergency Medical Condition (MA) What reading provider will be dictating this exam?->CRC FINDINGS: Lower Chest: Visualized portion of the lower chest demonstrates no acute abnormality. Organs: The liver, gallbladder, spleen, pancreas, adrenals, and kidneys are unremarkable. GI/Bowel: There is no evidence of bowel obstruction. No evidence of abnormal bowel wall thickening or distension. The appendix is normal. There is diverticulosis. Pelvis: The urinary bladder is distended. The uterus is unremarkable. There is a 2.4 cm left adnexal cyst. Peritoneum/Retroperit oneum: No evidence of ascites or free air. No evidence of lymphadenopathy. Aorta is normal in caliber. Bones/Soft Tissues: No acute abnormality of the visualized osseous structures. Postsurgical changes of prior . No soft tissue stranding or fluid at the surgical site. IMPRESSION: No acute abdominopelvic abnormality. [employer] Phone: Radiology Study observation (narrative) [employer] Phone: CT ABDOMEN PELVIS W IV CONTR AST Additional Contrast? NoneOrdered By: Melodie Ocampo on 10-28-2021 [facility] [employer] Phone: Comprehensive Metabolic Pane l reflex Mgon 10-28-2021 Albumin [Mass/Vol] 4.4 g/dL Normal 3.5-4.6 [facility] Comment on above: Performed By: #### C MPX #### [facility] [address] [facility] [address] ALP [Catalytic activity/Vol] 118 U/L Normal 40-130 [facility] Comment on above: Performed By: #### C MPX #### [facility] [address] [facility] [address] ALT [Catalytic activity/Vol] 6 U/L Normal 0-33 [facility] Comment on above: Performed By: #### C MPX #### [facility] [address] [place] [address] Anion gap [Moles/Vol] 11 mmol/L Normal 9-15 [facility] Comment on above: Performed By: #### C MPX #### [facility] [address] [place] [address] AST [Catalytic activity/Vol] 8 U/L Normal 0-35 [facility] Comment on above: Performed By: #### C MPX #### [facility] [address] [place] [address] Bilirubin [Mass/Vol] 0.4 mg/dL Normal 0.2-0.7 [facility] Comment on above: Performed By: #### C MPX #### [facility] [address] [place] [address] Calcium [Mass/Vol] 9.7 mg/dL Normal 8.5-9.9 [facility] Comment on above: Performed By: #### C MPX #### [facility] [address] [place] [address] Chloride [Moles/Vol] 104 mmol/L Normal 95-107 [facility] Comment on above: Performed By: #### C MPX #### [facility] [address] [place] [address] CO2 [Moles/Vol] 23 mmol/L Normal 20-[address] [facility] Comment on above: Performed By: #### C MPX #### [facility] [address] [place] [address] Creatinine [Mass/Vol] 0.60 mg/dL Normal 0.50-0.90 [facility] Comment on above: Performed By: #### C MPX #### [facility] [address] [place] [address] GFR >60.0 Normal >60 [facility] Comment on above: Result Comment: >60 mL/min/1.73m2 EGFR, calc. for ages 18 and older using the MDRD formula (not corrected for weight), is valid for stable renal function. Performed By: #### C MPX #### [facility] [address] [place] [address] GFR/1.73 sq M.predicted among blacks MDRD (S/P/Bld) [Vol rate/Area] mL/min/{1.73_m2} Normal >60 [facility] Comment on above: Result Comment: >60 mL/min/1.73m2 EGFR, calc. for ages 18 and older using the MDRD formula (not corrected for weight), is valid for stable renal function. Performed By: #### C MPX #### [facility] [address] [place] [address] Globulin (S) [Mass/Vol] 3.1 g/dL Normal 2.3-3.5 [facility] Comment on above: Performed By: #### C MPX #### [facility] [address] [place] [address] Glucose [Mass/Vol] 95 mg/dL Normal 70-99 [facility] Comment on above: Performed By: #### C MPX #### [facility] [address] [place] [address] Magnesium [Moles/Vol] 4.2 mmol/L Normal 3.4-4.9 [facility] Comment on above: Performed By: #### C MPX #### [facility] [address] [place] [address] Protein [Mass/Vol] 7.5 g/dL Normal 6.3-8.0 [facility] Comment on above: Performed By: #### C MPX #### [facility] [address] [place] [address] Sodium [Moles/Vol] 138 mmol/L Normal 135-144 [facility] Comment on above: Performed By: #### C MPX #### [facility] [address] [place] [address] Urea nitrogen [Mass/Vol] 14 mg/dL Normal 6-20 [facility] Comment on above: Performed By: #### C MPX #### [facility] [address] [place] [address] Comprehensive Metabolic Pane l w/ Reflex to MGon 10-28-2021 Albumin [Mass/Vol] 4.4 g/dL 3.5 - 4.6 g/dL [facility] ALP (Bld) [Catalytic activity/Vol] 118 U/L 40 - 130 U/L [facility] ALT [Catalytic activity/Vol] 6 U/L 0 - 33 U/L [facility] Anion gap [Moles/Vol] 11 mmol/L [facility] AST [Catalytic activity/Vol] 8 U/L 0 - 35 U/L [facility] Bilirubin [Mass/Vol] 0.4 mg/dL 0.2 - 0 .7 mg/dL [facility] Calcium [Mass/Vol] 9.7 mg/dL 8.5 - 9.9 mg/dL [facility] Chloride [Moles/Vol] 104 mmol/L [facility] CO2 [Moles/Vol] 23 mmol/L [facility] Creatinine [Mass/Vol] 0.6 mg/dL 0.5 - 0.9 mg/dL [facility] Free PSA/Total PSA [Mass fraction] 7.5 g/dL 6.3 - 8 g/dL [facility] GFR >60.0 60 - PINF [facility] Comment on above: >60 mL/min/1.73m2 EG FR, calc. for ages 18 and older using the MDRD formula (not corrected for weight), is valid for stable renal function. GFR Non- >60.0 60 - PINF [facility] Comment on above: >60 mL/min/1.73m2 EG FR, calc. for ages 18 and older using the MDRD formula (not corrected for weight), is valid for stable renal function. Globulin (S) [Mass/Vol] 3.1 g/dL 2.3 - 3.5 g/dL [facility] Glucose [Mass/Vol] 95 mg/dL 70 - 99 mg/dL [facility] Potassium reflex Magnesium 4.2 [facility] Sodium [Moles/Vol] 138 mmol/L [facility] Urea nitrogen (BldV) [Mass/Vol] 14 mg/dL 6 - 20 mg/dL [facility] Culture, Wound Aerobic, Anae robicon 10-28-2021 Culture, Wound Aerobic, Anaerobic ORDER#: [id number] ORDERED BY: SPRING OROZCO SOURCE: Incision COLLECTED: 10/28/21 16:45 ANTIBIOTICS AT [facility].: RECEIVED : 10/28/21 22:09 Culture, Wound Aerobic, Anaerobic PRELIM 11/01/21 08:12 Direct Exam: NO NEUTROPHILS SEEN Direct Exam: NO BACTERIA SEEN Cult,Aerobe/Anaerobe: GRAM NEGATIVE RODS Cult,Aerobe/Anaerobe: LIGHT GROWTH Cult,Aerobe/Anaerobe: Mixed skin to Cult,Aerobe/Anaerobe: No anaerobic organisms isolated at 3 days. Performed at [employer] [facility] [address] [place] [id number] ([phone] Normal [facility] Comment on above: Performed By: #### I CWAN #### [facility] [address] [facility] [id number] , Urineon 2 Beta HCG ( test) Ql (U) Negative Detects HCG level >20 MIU/mL [facility] UR HCG Qualitativeon 022 Beta HCG ( test) Ql (U) Negative Normal Detects [facility] Comment on above: Performed By: #### C BCWD #### [facility] [address] [facility] [address] Urinalysis with Reflex to Cu ltureon 10-28-2021 Bilirubin Urine Negative Negative [facility] Blood, Urine Negative Negative [facility] Clarity, UA Clear Clear [facility] Color, UA Yellow Straw/Yellow [facility] Glucose, Ur Negative Negative mg/dL [facility] Ketones Ql (U) Negative Negative mg/dL [facility] Leukocyte esterase Test strip Ql (U) Negative Negative [facility] Nitrite, Urine Negative Negative [facility] pH, UA 5.5 5 - 9 [facility] Protein, UA Negative Negative mg/dL [facility] Specific [place], UA 1.015 1.005 - 1.03 MIRIAN N [facility] Urine Reflex to Culture Not Indicated [facility] Urobilinogen, Urine 0.2 NINF [facility] Urinalysis, reflex to cultur minoo 10-28-2021 Bilirubin Ql (U) Negative Normal Negative [facility] Comment on above: Performed By: #### U AR #### [facility] [address] [place] [address] Clarity (U) Clear Normal Clear [facility] Comment on above: Performed By: #### U AR #### [facility] [address] [place] [address] Color (U) Yellow Normal Straw/[place] [facility] Comment on above: Performed By: #### U AR #### [facility] [address] [place] [address] Glucose Ql (U) Negative Normal Negative [facility] Comment on above: Performed By: #### U AR #### [facility] [address] [place] [address] Hemoglobin Ql (U) Negative Normal Negative [facility] Comment on above: Performed By: #### U AR #### [facility] [address] [place] [address] Ketones Ql (U) Negative Normal Negative [facility] Comment on above: Performed By: #### U AR #### [facility] [address] [place] [address] Leukocyte esterase Test strip Ql (U) Negative Normal Negative [facility] Comment on above: Performed By: #### U AR #### [facility] [address] [place] [address] Nitrite Ql (U) Negative Normal Negative [facility] Comment on above: Performed By: #### U AR #### [facility] [address] [place] [address] pH (U) 5.5 [pH] Normal 5.0-9.0 [facility] Comment on above: Performed By: #### U AR #### [facility] [address] [place] [address] Protein Ql (U) Negative Normal Negative [facility] Comment on above: Performed By: #### U AR #### [facility] [address] [place] [address] Specific gravity (U) [Rel density] 1.015 Normal 1.005-1.03 [facility] Comment on above: Performed By: #### U AR #### [facility] [address] [place] [address] Urine Reflexed to Culture Not Indicated Normal [facility] Comment on above: Performed By: #### U AR #### [facility] [address] [place] [address] Urobilinogen Qn (U) 0.2 {Ginger'U}/dL Normal < 2.0 [facility] Comment on above: Performed By: #### U AR #### [facility] [address] [place] [address] Allergen, Food, Comprehensiv e Profile 08-31-2021 Allergen, Food, Barley IgE <0.10 Normal [facility] Allergen, Food, Beef IgE <0.10 Normal [facility] Allergen, Food, Cabbage <0.10 Normal [facility] Allergen, Food, Carrot <0.10 Normal [facility] Allergen, Food, Chicken <0.10 Normal [facility] Allergen, Food, Codfish IgE <0.10 Normal [facility] Allergen, Food, [place] IgE <0.10 Normal [facility] Allergen, Food, Crab IgE <0.10 Normal [facility] Allergen, Food, Egg White <0.10 Normal [facility] Allergen, Food, Grape IgE <0.10 Normal [facility] Allergen, Food, Lettuce IgE <0.10 Normal [facility] Allergen, Food, Milk (Cow) IgE <0.10 Normal [facility] Allergen, Food, [place] <0.10 Normal [facility] Allergen, Food, Oat IgE <0.10 Normal [facility] Allergen, Food, Kendall IgE <0.10 Normal [facility] Allergen, Food, Peanut IgE <0.10 Normal [facility] Allergen, Food, Pepper C. annuum IgE <0.10 [facility] Allergen, Food, Pork IgE <0.10 [facility] Comment on above: Result Comment: [facility] [place] [address] ([phone] Allergen, Food, Potato <0.10 Normal [facility] Allergen, Food, Rice IgE <0.10 [facility] Allergen, Food, [place] IgE <0.10 [facility] Allergen, Food, Shrimp IgE <0.10 [facility] Allergen, Food, Soybean IgE <0.10 [facility] Allergen, Food, Tomato IgE <0.10 [facility] Allergen, Food, Tuna IgE <0.10 [facility] Allergen, Food, Wheat IgE <0.10 [facility] Comment on above: Result Comment: ALLERGEN, INTERP, IMMUNOCAP SCORE IGE <0.10 Class 0 No significant level detected 0.10-0.34 Class 0/1 Clinical relevance undertermined 0.35 to 0.70 Class 1 Low 0.71 to 3.50 Class 2 Moderate 3.51 to 17.50 Class 3 High 17.51 to 50.00 Class 4 Very High 50.01 to 100.00 Class 5 Very High >100.00 Class 6 Very High units: kU/L Increasing ranges are reflective of increasing concentrations of allergen specific IgE. These concentrations may not correlate with the degree of clinical response or skin testing results when challenged with a specific allergen. The correlation of allergy laboratory results with the clinical history and in vivo reactivity to specific allergens is essential. A negative test may not rule out clinical allergy or even anaphylaxis. Immunoglobulin E 53 IU/mL Normal [facility] Comment on above: Result Comment: [facility] [address] [place] [phone] ([phone] CBC With Platelet and Differ entialon 08-21-2021 Abs Imm Granulocytes 0.0 K/uL Normal [facility] Comment on above: Performed By: #### C BCWD #### [facility] [address] [place] [address] Basophils (Bld) [#/Vol] 0.0 10*3/uL Normal 0.0-0.1 [facility] Comment on above: Performed By: #### C BCWD #### [facility] [address] [place] [address] Basophils/100 WBC (Bld) 0.3 % Normal 0.1-1.2 [facility] Comment on above: Performed By: #### C BCWD #### [facility] [address] [place] [address] Eosinophils (Bld) [#/Vol] 0.2 10*3/uL Normal 0.0-0.4 [facility] Comment on above: Performed By: #### C BCWD #### [facility] [address] [place] [address] Eosinophils/100 WBC (Bld) 2.4 % Normal 0.7-5.8 [facility] Comment on above: Performed By: #### C BCWD #### [facility] [address] [place] [address] Erythrocyte distribution width (RBC) [Ratio] 12.6 % Normal 11.7-14.4 [facility] Comment on above: Performed By: #### C BCWD #### [facility] [address] [place] [address] Hematocrit (Bld) [Volume fraction] 41.7 % Normal 37.0-47.0 [facility] Comment on above: Performed By: #### C BCWD #### [facility] [address] [place] [address] Hemoglobin (Bld) [Mass/Vol] 13.6 g/dL Normal 11.2-15.7 [facility] Comment on above: Performed By: #### C BCWD #### [facility] [address] [place] [address] Imm Granulocytes 0.3 % Normal [facility] Comment on above: Performed By: #### C BCWD #### [facility] [address] [place] [address] Lymphocytes (Bld) [#/Vol] 2.2 10*3/uL Normal 1.2-3.7 [facility] Comment on above: Performed By: #### C BCWD #### [facility] [address] [place] [address] Lymphocytes/100 WBC (Bld) 25.3 % Normal [facility] Comment on above: Performed By: #### C BCWD #### [facility] [address] [place] [address] MCH (RBC) [Entitic mass] 30.8 pg Normal 25.6-32.2 [facility] Comment on above: Performed By: #### C BCWD #### [facility] [address] [place] [address] MCHC 32.6 % Normal 32.2-35.5 [facility] Comment on above: Performed By: #### C BCWD #### [facility] [address] [place] [address] MCV (RBC) [Entitic vol] 94.6 fL Normal 79.4-94.8 [facility] Comment on above: Performed By: #### C BCWD #### [facility] [address] [place] [address] Monocytes (Bld) [#/Vol] 0.4 10*3/uL Normal 0.2-0.9 [facility] Comment on above: Performed By: #### C BCWD #### [facility] [address] [place] [address] Monocytes/100 WBC (Bld) 4.4 % Low 4.7-12.5 [facility] Comment on above: Performed By: #### C BCWD #### [facility] [address] [place] [address] Neutrophils (Bld) [#/Vol] 5.8 10*3/uL Normal 1.6-6.1 [facility] Comment on above: Performed By: #### C BCWD #### [facility] [address] [place] [address] Neutrophils/100 WBC (Bld) 67.3 % Normal 34.0-71.1 [facility] Comment on above: Performed By: #### C BCWD #### [facility] [address] [place] [address] Platelets (Bld) [#/Vol] 200 10*3/uL Normal 182-369 [facility] Comment on above: Performed By: #### C BCWD #### [facility] [address] [place] [address] RBC (Bld) [#/Vol] 4.41 10*6/uL Normal 3.93-5.22 [facility] Comment on above: Performed By: #### C BCWD #### [facility] [address] [place] [address] WBC (Bld) [#/Vol] 8.6 10*3/uL Normal 4.0-10.0 [facility] Comment on above: Performed By: #### C BCWD #### [facility] [address] [place] [address] CBC with Auto Differentialon 08-21-2021 Basophils (Bld) [#/Vol] 0.0 10*3/uL 0.0 - 0.1 K/uL [facility] [employer] Basophils/100 WBC (Bld) 0.3 % 0.1 - 1.2 % [facility] [employer] [facility] Eosinophils (Bld) [#/Vol] 0.2 10*3/uL 0.0 - 0.4 K/uL [facility] Eosinophils/100 WBC (Bld) 2.4 % 0.7 - 5.8 % [facility] [employer] Hematocrit (Bld) [Volume fraction] 41.7 % 37.0 - 47.0 % [facility] Hemoglobin (Bld) [Mass/Vol] 13.6 g/dL 11.2 - 15.7 g/dL [facility] Immature granulocytes (Bld) [#/Vol] 0.0 10*3/uL [facility] Immature granulocytes/100 WBC (Bld) 0.3 % [facility] Interpretation and review of laboratory results Abnormal [facility] Lymphocytes (Bld) [#/Vol] 2.2 10*3/uL 1.2 - 3.7 K/uL [facility] Lymphocytes/100 WBC (Bld) 25.3 % [facility] MCH (RBC) [Entitic mass] 30.8 pg 25.6 - 32.2 pg [facility] MCHC (RBC) [Mass/Vol] 32.6 % 32.2 - 35.5 % [facility] MCV (RBC) [Entitic vol] 94.6 fL 79.4 - 94.8 fL [facility] Monocytes (Bld) [#/Vol] 0.4 10*3/uL 0.2 - 0.9 K/uL [facility] Monocytes/100 WBC (Bld) 4.4 % Low 4.7 - 12.5 % [facility] Neutrophils Absolute 5.8 K/uL 1.6 - 6 .1 K/uL [facility] Neutrophils/100 WBC (Bld) 67.3 % 34.0 - 71.1 % [facility] Platelet distribution width (Bld) [Ratio] 12.6 % 11.7 - 14.4 % [facility] Platelets (Bld) [#/Vol] 200 10*3/uL 182 - 369 K/uL [facility] RBC (Bld) [#/Vol] 4.41 10*6/uL [facility] WBC (Bld) [#/Vol] 8.6 10*3/uL 4.0 - 10.0 K/uL [facility] COVID-19on 08-21-2021 SARS-CoV-2 (COVID-19) RNA JOSIE+probe Ql (Unsp spec) Not detected Normal Not Detect [facility] Comment on above: Result Comment: Rapi d NAAT: Negative results should be treated as presumptive and, if inconsistent with clinical signs and symptoms or necessary for patient management, should be tested with an alternative molecular assay. Negative results do not preclude SARS-CoV-2 infection and should not be used as the sole basis for patient management decisions. This test has been authorized by the FDA under an Emergency Use Authorization (EUA) for use by authorized laboratories. Fact sheet for Healthcare Providers: https://www.fda.gov/media/849609/download Fact sheet for Patients: https://www.fda.gov/media/769840/download METHODOLOGY: Isothermal Nucleic Acid Amplification Performed By: #### C BCWD #### [facility] [address] [place] [address] COVID-19, Rapidon 08-21-2021 SARS-CoV-2 (COVID-19) RNA JOSIE+probe Ql (Unsp spec) Not detected Not Detected [facility] Comment on above: Rapid NAAT: Negative results should be treated as presumptive and, if inconsistent with clinical signs and symptoms or necessary for patient management, should be tested with an alternative molecular assay. Negative results do not preclude SARS-CoV-2 infection and should not be used as the sole basis for patient management decisions. This test has been authorized by the FDA under an Emergency Use Authorization (EUA) for use by authorized laboratories. Fact sheet for Healthcare Providers: https://www.fda.gov/media/078122/download Fact sheet for Patients: https://www.fda.gov/media/793055/download METHODOLOGY: Isothermal Nucleic Acid Amplification [facility] CT ABDOMEN PELVIS W IV CONTR Luc 08-21-2021 CT ABDOMEN PELVIS W IV CONTRAST EXAMINATION: CT ABDOMEN PELVIS W IV CONTRAST DATE AND TIME:08/21/2021 2:14 AM CLINICAL HISTORY: Acute abdominal pain. Epigastric pain. abdominal Pain COMPARISON: July 02, 2014 TECHNIQUE: Contiguous axial CT sections of the abdomen and pelvis. 100 cc's of IV contrast given.. All CT scans at this facility use dose modulation, iterative reconstruction, and/or weight based dosing when appropriate to reduce radiation dose to as low as reasonably achievable. Some of this report was completed using [employer] voice-recognition technology and may include unintended errors with respect to translation of words, typographical errors or grammatical errors which may not have been identified prior to the finalization of this report. FINDINGS Liver: Negative Spleen: Negative Gallbladder: No calcified gallstones. Normal gallbladder wall. No pericholecystic fluid. Pancreas: Negative Kidney: Negative Adrenal glands are negative. Bowel: Negative There is no CT evidence for appendicitis. Nodes: No lymphadenopathy. Aorta: Negative Pelvis:Negative Peritoneum: No free fluid or free air. The abdominal wall is intact. Bones: No acute osseous abnormalities. Other:None IMPRESSION: NO ACUTE PATHOLOGY IN THE ABDOMEN OR PELVIS. Interpreted by: Mckay Solis MD Signed by: Mckay Solis MD 08/21/21 Final result Normal [facility] Comprehensive Metabolic Pane l reflex Mgon 08-21-2021 Albumin [Mass/Vol] 4.3 g/dL Normal 3.5-4.6 [facility] Comment on above: Performed By: #### C BCWD #### [facility] [address] [place] [address] ALP [Catalytic activity/Vol] 116 U/L Normal 40-130 [facility] Comment on above: Performed By: #### C BCWD #### [facility] [address] [place] [address] ALT [Catalytic activity/Vol] 8 U/L Normal 0-33 [facility] Comment on above: Performed By: #### C BCWD #### [facility] [address] [place] [address] Anion gap [Moles/Vol] 13 mmol/L Normal 9-15 [facility] Comment on above: Performed By: #### C BCWD #### [facility] [address] [place] [address] AST [Catalytic activity/Vol] 10 U/L Normal 0-35 [facility] Comment on above: Performed By: #### C BCWD #### [facility] [address] [place] [address] Bilirubin [Mass/Vol] mg/dL Normal 0.2-0.7 [facility] Comment on above: Performed By: #### C BCWD #### [facility] [address] [place] [address] Calcium [Mass/Vol] 9.3 mg/dL Normal 8.5-9.9 [facility] Comment on above: Performed By: #### C BCWD #### [facility] [address] [place] [address] Chloride [Moles/Vol] 105 mmol/L Normal 95-107 [facility] Comment on above: Performed By: #### C BCWD #### [facility] [address] [place] [address] CO2 [Moles/Vol] 22 mmol/L Normal 20-[address] [facility] Comment on above: Performed By: #### C BCWD #### [facility] [address] [place] [address] Creatinine [Mass/Vol] 0.48 mg/dL Low 0.50-0.90 [facility] Comment on above: Performed By: #### C BCWD #### [facility] [address] [place] [address] GFR >60.0 Normal >60 [facility] Comment on above: Result Comment: >60 mL/min/1.73m2 EGFR, calc. for ages 18 and older using the MDRD formula (not corrected for weight), is valid for stable renal function. Performed By: #### C BCWD #### [facility] [address] [place] [address] GFR/1.73 sq M.predicted among blacks MDRD (S/P/Bld) [Vol rate/Area] mL/min/{1.73_m2} Normal >60 [facility] Comment on above: Result Comment: >60 mL/min/1.73m2 EGFR, calc. for ages 18 and older using the MDRD formula (not corrected for weight), is valid for stable renal function. Performed By: #### C BCWD #### [facility] [address] [place] [address] Globulin (S) [Mass/Vol] 2.5 g/dL Normal 2.3-3.5 [facility] Comment on above: Performed By: #### C BCWD #### [facility] [address] [place] [address] Glucose [Mass/Vol] 114 mg/dL Critically high 70-99 M [facility] Comment on above: Performed By: #### C BCWD #### [facility] [address] [place] [address] Magnesium [Moles/Vol] 3.6 mmol/L Normal 3.4-4.9 [facility] Comment on above: Performed By: #### C BCWD #### [facility] [address] [place] [address] Protein [Mass/Vol] 6.8 g/dL Normal 6.3-8.0 [facility] Comment on above: Performed By: #### C BCWD #### [facility] [address] [place] [address] Sodium [Moles/Vol] 140 mmol/L Normal 135-144 [facility] Comment on above: Performed By: #### C BCWD #### [facility] [address] [place] [address] Urea nitrogen [Mass/Vol] 10 mg/dL Normal 6-20 [facility] Comment on above: Performed By: #### C BCWD #### [facility] [address] [place] [address] Comprehensive Metabolic Pane l w/ Reflex to MGon 08-21-2021 Albumin [Mass/Vol] 4.3 g/dL 3.5 - 4.6 g/dL [facility] ALP (Bld) [Catalytic activity/Vol] 116 U/L 40 - 130 U/L [facility] ALT [Catalytic activity/Vol] 8 U/L 0 - 33 U/L [facility] Anion gap [Moles/Vol] 13 mmol/L [facility] AST [Catalytic activity/Vol] 10 U/L 0 - 35 U/L [facility] Bilirubin [Mass/Vol] mg/dL 0.2 - 0 .7 mg/dL [facility] Calcium [Mass/Vol] 9.3 mg/dL 8.5 - 9.9 mg/dL [facility] Chloride [Moles/Vol] 105 mmol/L [facility] CO2 [Moles/Vol] 22 mmol/L [facility] Creatinine [Mass/Vol] 0.48 mg/dL Low 0.50 - 0.90 mg/dL [facility] Free PSA/Total PSA [Mass fraction] 6.8 g/dL 6.3 - 8.0 g/dL [facility] GFR >60.0 >60 [facility] Comment on above: >60 mL/min/1.73m2 EG FR, calc. for ages 18 and older using the MDRD formula (not corrected for weight), is valid for stable renal function. GFR Non- >60.0 >60 [facility] Comment on above: >60 mL/min/1.73m2 EG FR, calc. for ages 18 and older using the MDRD formula (not corrected for weight), is valid for stable renal function. Globulin (S) [Mass/Vol] 2.5 g/dL 2.3 - 3.5 g/dL [facility] Glucose [Mass/Vol] 114 mg/dL High 70 - 99 mg/dL [facility] Interpretation and review of laboratory results Abnormal [facility] Potassium reflex Magnesium 3.6 [facility] Sodium [Moles/Vol] 140 mmol/L [facility] Urea nitrogen (BldV) [Mass/Vol] 10 mg/dL 6 - 20 mg/dL [facility] Lipaseon 08-21-2021 Lipase [Catalytic activity/Vol] 18 U/L Normal 12-95 [facility] Comment on above: Performed By: #### L IPAS #### [facility] [address] [place] [address] Lipase [Catalytic activity/Vol] 18 U/L 12 - 95 U/L [facility] No Panel Informationon 08-21 [facility] , Urineon 2 Beta HCG ( test) Ql (U) Negative Detects HCG level >20 MIU/mL [facility] UR HCG Qualitativeon 022 Beta HCG ( test) Ql (U) Negative Normal Detects [facility] Comment on above: Performed By: #### C BCWD #### [facility] [address] [place] [address] Urinalysis with Reflex to Cu ltureon 08-21-2021 Bilirubin Urine Negative Negative [facility] Blood, Urine Negative Negative [facility] Clarity, UA Clear Clear [facility] Color, UA Yellow Straw/Yellow [facility] Glucose, Ur Negative Negative mg/dL [facility] Ketones Ql (U) Negative Negative mg/dL [facility] Leukocyte esterase Test strip Ql (U) Negative Negative [facility] Nitrite, Urine Negative Negative [facility] pH, UA 5.5 [facility] Protein, UA Negative Negative mg/dL [facility] Specific [place], UA <=1.005 [facility] Urine Reflex to Culture Not Indicated [facility] Urobilinogen, Urine 0.2 <2.0 E.U./dL [facility] Urinalysis, reflex to cultur minoo 08-21-2021 Bilirubin Ql (U) Negative Normal Negative [facility] Comment on above: Performed By: #### C BCWD #### [facility] [address] [place] [address] Clarity (U) Clear Normal Clear [facility] Comment on above: Performed By: #### C BCWD #### [facility] [address] [place] [address] Color (U) Yellow Normal Straw/[place] [facility] Comment on above: Performed By: #### C BCWD #### [facility] [address] [place] [address] Glucose Ql (U) Negative Normal Negative [facility] Comment on above: Performed By: #### C BCWD #### [facility] [address] [place] [address] Hemoglobin Ql (U) Negative Normal Negative [facility] Comment on above: Performed By: #### C BCWD #### [facility] [address] [place] [address] Ketones Ql (U) Negative Normal Negative [facility] Comment on above: Performed By: #### C BCWD #### [facility] [address] [place] [address] Leukocyte esterase Test strip Ql (U) Negative Normal Negative [facility] Comment on above: Performed By: #### C BCWD #### [facility] [address] [place] [address] Nitrite Ql (U) Negative Normal Negative [facility] Comment on above: Performed By: #### C BCWD #### [facility] [address] [place] [address] pH (U) 5.5 [pH] Normal 5.0-9.0 [facility] Comment on above: Performed By: #### C BCWD #### [facility] [address] [place] [address] Protein Ql (U) Negative Normal Negative [facility] Comment on above: Performed By: #### C BCWD #### [facility] [address] [place] [address] Specific gravity (U) [Rel density] <=1.005 Normal 1.005-1.03 [facility] Comment on above: Performed By: #### C BCWD #### [facility] [address] [place] [address] Urine Reflexed to Culture Not Indicated Normal [facility] Comment on above: Performed By: #### C BCWD #### [facility] [address] [place] [address] Urobilinogen Qn (U) 0.2 {Ginger'U}/dL Normal < 2.0 [facility] Comment on above: Performed By: #### C BCWD #### [facility] [address] [place] [address] CBC WITH AUTO DIFFERENTIALon 02-29-2020 Basophils (Bld) [#/Vol] 0.0 10*3/uL 0 - 0.2 K/uL [place] Basophils/100 WBC (Bld) 0.4 % [place] Eosinophils (Bld) [#/Vol] 0.2 10*3/uL 0 - 0.7 K/uL [place] Eosinophils/100 WBC (Bld) 2.6 % [place] Erythrocyte distribution width (RBC) [Ratio] 13.6 % 11.5 - 14.5 % [place] Hematocrit (Bld) [Volume fraction] 40.3 % 37 - 47 % [place] Hemoglobin (Bld) [Mass/Vol] 13.6 g/dL 12 - 16 g/dL [place] Lymphocytes (Bld) [#/Vol] 1.7 10*3/uL 1 - 4.8 K/uL [place] Lymphocytes/100 WBC (Bld) 21.0 % [place] MCH (RBC) [Entitic mass] 31.0 pg 27 - 31.3 pg [place] MCHC (RBC) [Mass/Vol] 33.9 % 33 - 37 % [place] MCV (RBC) [Entitic vol] 91.6 fL 82 - 100 fL [place] Monocytes (Bld) [#/Vol] 0.4 10*3/uL 0.2 - 0.8 K/uL [place] Monocytes/100 WBC (Bld) 4.6 % [place] Neutrophils Absolute 5.6 K/uL 1.4 - 6 .5 K/uL [place] Neutrophils/100 WBC (Bld) 71.4 % [place] Platelets (Bld) [#/Vol] 195 10*3/uL 130 - 400 K/uL [place] RBC (Bld) [#/Vol] 4.40 10*6/uL [place] WBC (Bld) [#/Vol] 7.9 10*3/uL 4.8 - 10.8 K/uL [place] COVID-19on 02-29-2020 SARS-CoV-2, NAAT Not Detected Not Detected [place] Comment on above: Rapid NAAT: Negative results should be treated as presumptive and, if inconsistent with clinical signs and symptoms or necessary for patient management, should be tested with an alternative molecular assay. Negative results do not preclude SARS-CoV-2 infection and should not be used as the sole basis for patient management decisions. This test has been authorized by the FDA under an Emergency Use Authorization (EUA) for use by authorized laboratories. Fact sheet for Healthcare Providers: https://www.fda.gov/media/009090/download Fact sheet for Patients: https://www.fda.gov/media/407591/download METHODOLOGY: Isothermal Nucleic Acid Amplification POC UR-QUALon 02-11 Beta HCG ( test) Ql (U) Negative Negative [place] Lot Number [id number] [place] Negative QC Pass/Fail Pass [place] Positive QC Pass/Fail Pass [place] Hemoglobinon 11-03-2019 Hemoglobin (Bld) [Mass/Vol] 11.2 g/dL Low 12 - 16 g/dL [place] Interpretation and review of laboratory results Abnormal [place] RPRon 11-03-2019 Reagin Ab RPR Ql (S) Non-reactive Non-reactive [place] CBC auto differentialon 10-13 Basophils (Bld) [#/Vol] 0.0 10*3/uL 0 - 0.2 K/uL [place] Basophils/100 WBC (Bld) 0.3 % [place] Eosinophils (Bld) [#/Vol] 0.1 10*3/uL 0 - 0.7 K/uL [place] Eosinophils/100 WBC (Bld) 1.2 % [place] Erythrocyte distribution width (RBC) [Ratio] 13.4 % 11.5 - 14.5 % [place] Hematocrit (Bld) [Volume fraction] 34.9 % Low 37 - 47 % [place] Hemoglobin (Bld) [Mass/Vol] 11.7 g/dL Low 12 - 16 g/dL [place] Interpretation and review of laboratory results Abnormal [place] Lymphocytes (Bld) [#/Vol] 1.4 10*3/uL 1 - 4.8 K/uL [place] Lymphocytes/100 WBC (Bld) 11.4 % [place] MCH (RBC) [Entitic mass] 31.2 pg 27 - 31.3 pg [place] MCHC (RBC) [Mass/Vol] 33.6 % 33 - 37 % [place] MCV (RBC) [Entitic vol] 93.0 fL 82 - 100 fL [place] Monocytes (Bld) [#/Vol] 0.5 10*3/uL 0.2 - 0.8 K/uL [place] Monocytes/100 WBC (Bld) 4.2 % [place] Neutrophils Absolute 10.1 K/uL High 1.4 - 6 .5 K/uL [place] Neutrophils/100 WBC (Bld) 82.9 % [place] Platelets (Bld) [#/Vol] 191 10*3/uL 130 - 400 K/uL [place] RBC (Bld) [#/Vol] 3.75 10*6/uL Low [place] WBC (Bld) [#/Vol] 12.1 10*3/uL High 4.8 - 10.8 K/uL [place] Comprehensive Metabolic Pane fortunato 11-02-2019 Albumin [Mass/Vol] 3.2 g/dL Low 3.5 - 4.6 g/dL [place] ALP [Catalytic activity/Vol] 147 U/L High 40 - 130 U/L [place] ALT [Catalytic activity/Vol] 6 U/L 0 - 33 U/L [place] Anion gap [Moles/Vol] 10 mmol/L [place] AST [Catalytic activity/Vol] 7 U/L 0 - 35 U/L [place] Bilirubin Ql (U) <0.2 0.2 - 0.7 mg/dL [place] Calcium [Mass/Vol] 8.4 mg/dL Low 8.5 - 9.9 mg/dL [place] Chloride [Moles/Vol] 104 mmol/L [place] CO2 [Moles/Vol] 21 mmol/L [place] Creatinine [Mass/Vol] 0.3 mg/dL Low 0.5 - 0.9 mg/dL [place] GFR >60.0 >60 [place] Comment on above: >60 mL/min/1.73m2 EG FR, calc. for ages 18 and older using the MDRD formula (not corrected for weight), is valid for stable renal function. GFR Non- >60.0 >60 [place] Comment on above: >60 mL/min/1.73m2 EG FR, calc. for ages 18 and older using the MDRD formula (not corrected for weight), is valid for stable renal function. Globulin (S) [Mass/Vol] 2.8 g/dL 2.3 - 3.5 g/dL [place] Glucose [Mass/Vol] 103 mg/dL High 70 - 99 mg/dL [place] Interpretation and review of laboratory results Abnormal [place] Potassium [Moles/Vol] 3.9 mmol/L [place] Protein [Mass/Vol] 6.0 g/dL Low 6.3 - 8 g/dL [place] Sodium [Moles/Vol] 135 mmol/L [place] Urea nitrogen [Mass/Vol] 8 mg/dL 6 - 20 mg/dL [place] DRUG SCREEN MULTI URINEon Amphetamine Screen, Urine Negative Negative <1000 ng/mL [place] Barbiturate Screen, Ur Negative Negative < 200 ng/mL [place] Benzodiazepine Screen, Urine Negative Negative < 200 ng/mL [place] Cannabinoid Scrn, Ur Negative Negativ e < 50 ng/mL [place] Cocaine Metabolite Screen, Urine Negative Negative < 300 ng/mL [place] Drug Screen Comment: see below [place] Comment on above: This method is a scr eening test to detect only these drug classes as part of a medical workup. Confirmatory testing by another method should be ordered if clinically indicated. Methadone Screen, Urine Negative Negative <300 ng/mL [place] Comment on above: Effective: 10/20/18 New Test for Qualitative Drug Screen. Opiate Scrn, Ur Negative Negative < 300 ng/mL [place] Oxycodone Urine Negative Negative <10 0 ng/mL [place] Comment on above: Effective: 10/20/18 New Test for Qualitative Drug Screen. PCP Screen, Urine Negative Negative < 25 ng/mL [place] Propoxyphene Scrn, Ur Negative Negative <300 ng/mL [place] Comment on above: Effective: 10/20/18 New Test for Qualitative Drug Screen. Hepatitis B surface antigeno n 11-02-2019 Hep B S Ag Interp Non-reactive [place] Rubella antibody, IgGon 10-13 Rubella Antibody IgG 69.5 IU/mL [place] Comment on above: Patient's result ind icates immunity. Default Normal Ranges >=10 Presumed Immune <10 Presumed Not immune TYPE AND SCREENon 11-02-2019 ABO/Rh Positive [place] Urinalysison 11-02-2019 Bilirubin Urine Negative Negative [facility] [place] Blood, Urine Negative Negative [place] Clarity, UA Clear Clear [place] Color, UA Yellow Straw/Yellow [place] Glucose, Ur Negative Negative mg/dL [place] Ketones Ql (U) Negative Negative mg/dL [place] Leukocyte esterase Test strip Ql (U) Negative Negative [place] Nitrite, Urine Negative Negative [place] pH, UA 7.5 [place] Protein (U) [Mass/Vol] Negative Negative mg/dL [place] Specific [place], UA 1.020 [place] Urobilinogen, Urine 0.2 <2.0 E.U./dL [place] Otheron 06-19-2019 APPROPRIATE GROWTH SINCE LAST SONOGRAM. [place] Sonogram #: 1 Presentation: Transverse, head maternal right GS: CRL: BPD: 4.50 Wks: 19w 5d HC: 17.07 Wks: 19w 5d AC: 14.70 Wks: 20w 0d FL: 3.13 Wks: 19w 6d HC/AC: 1.16 Anatomy Cerebral Ventricles V Posterior Fossa V Spinal Column SV Right Kidney V Left Kidney V Bladder V 4 Chamber Heart V Diaphragm V Stomach V Cord Insertion V 3 Vessel Cord V 12 Long Bones V Placental Location: Posterior, not low lying Placental Grade: 0/I LORI: WNL Cervical Length: 3.68 TV Dating Date: 06/19/19 Wks by 1st US: 19w 4d Wks at this US: 19w 6d Weight (>28 Wks): 316 +/- 46g LMP: 02/05/19 Wks by LMP: Due date by LMP: Due date by first US: 11/08/19 Heart Rate: 144 bpm Right Ovary: Left Ovary: EXAMINATION: LIMITED ULTRASOUND UTERUS, 2/3 TRIMESTER REASON FOR EXAMINATION: Check anatomy. LMP: 02/05/2019. Gestational age by previous sonogram: 19 Weeks 4 days. PORTILLO(LMP): 11/07/2019. 4 Para 3 Miscarriage 0. COMPARISONS: 04/14/2019 FINDINGS: Transabdominal ultrasonography of the gravid uterus was performed. A single living intrauterine is present. The fetus lies in a transverse presentation with head to maternal right side. No abnormalities are noted. Please see the anatomy chart above. spine was not well visualized due to position throughout the exam. The average ultrasound gestational age measures 19 weeks 6 days + or - 10 days. Estimated weight-LMP percentile measures 10%. heart rate measures 144 bpm. The placenta lies in a posterior position and is intact. The placenta is not low lying. The placenta is a grade II. The cervix is closed and measures 3.7 cm. Transvaginal images of the cervix were acquired. The amount of the amniotic fluid is within normal limits. [employer] [place], [place] Manny, [employer] Incoming Radiant Results From [facility] - 06/19/2019 5:09 PM EDT Sonogram #: 1 Presentation: Transverse, head maternal right GS: CRL: BPD: 4.50 Wks: 19w 5d HC: 17.07 Wks: 19w 5d AC: 14.70 Wks: 20w 0d FL: 3.13 Wks: 19w 6d HC/AC: 1.16 Anatomy Cerebral Ventricles V Posterior Fossa V Spinal Column SV Right Kidney V Left Kidney V Bladder V 4 Chamber Heart V Diaphragm V Stomach V Cord Insertion V 3 Vessel Cord V 12 Long Bones V Placental Location: Posterior, not low lying Placental Grade: 0/I LORI: WNL Cervical Length: 3.68 TV Dating Date: 06/19/19 Wks by 1st US: 19w 4d Wks at this US: 19w 6d Weight (>28 Wks): 316 +/- 46g LMP: 02/05/19 Wks by LMP: Due date by LMP: Due date by first US: 11/08/19 Heart Rate: 144 bpm Right Ovary: Left Ovary: EXAMINATION: LIMITED ULTRASOUND UTERUS, 2/3 TRIMESTER REASON FOR EXAMINATION: Check anatomy. LMP: 02/05/2019. Gestational age by previous sonogram: 19 Weeks 4 days. PORTILLO(LMP): 11/07/2019. 4 Para 3 Miscarriage 0. COMPARISONS: 04/14/2019 FINDINGS: Transabdominal ultrasonography of the gravid uterus was performed. A single living intrauterine is present. The fetus lies in a transverse presentation with head to maternal right side. No abnormalities are noted. Please see the anatomy chart above. spine was not well visualized due to position throughout the exam. The average ultrasound gestational age measures 19 weeks 6 days + or - 10 days. Estimated weight-LMP percentile measures 10%. heart rate measures 144 bpm. The placenta lies in a posterior position and is intact. The placenta is not low lying. The placenta is a grade II. The cervix is closed and measures 3.7 cm. Transvaginal images of the cervix were acquired. The amount of the amniotic fluid is within normal limits. IMPRESSION: APPROPRIATE GROWTH SINCE LAST SONOGRAM. [employer] [place] US OB LESS THAN 14 WEEKS SIN GLE OR FIRST GESTATIONon 04-14-2019 THERE IS A SINGLE IU P WITH ESTIMATED GESTATIONAL AGE BASED UPON CROWN-RUMP LENGTH OF 10 WEEKS 2 DAYS +/- 1 WEEK WITH HEART RATE OF 155 BPM. ANATOMY IS NOT ASSESSED DUE TO EARLY GESTATIONAL AGE. THE RIGHT OVARY IS SURGICALLY ABSENT. THE LEFT OVARY SUBMITTED VISUALIZED. [place] TRANSABDOMINAL EXAMINATION OF THE PELVIS CLINICAL DATA: AMENORRHEA. SIZE AND DATES. CLINICAL NOTE, PATIENT REPORTS A PRIOR RIGHT OOPHORECTOMY. TECHNIQUE: Transabdominal ultrasound was performed of the pelvis. FINDINGS: The uterus measures 11.0 x 8.0 x 7.3 in the long, AP and transverse dimension. There is a single IUP with estimated gestational age based upon crown-rump length of 10 weeks 2 days +/- 1 week with a heart rate of 155 bpm. The right ovary is surgically absent. Left ovary is not visualized. No free fluid. [place], [place] Manny, Chpo Incoming Radiant Results From [facility]/[employer] - 04/14/2019 4:16 PM EST TRANSABDOMINAL EXAMINATION OF THE PELVIS CLINICAL DATA: AMENORRHEA. SIZE AND DATES. CLINICAL NOTE, PATIENT REPORTS A PRIOR RIGHT OOPHORECTOMY. TECHNIQUE: Transabdominal ultrasound was performed of the pelvis. FINDINGS: The uterus measures 11.0 x 8.0 x 7.3 in the long, AP and transverse dimension. There is a single IUP with estimated gestational age based upon crown-rump length of 10 weeks 2 days +/- 1 week with a heart rate of 155 bpm. The right ovary is surgically absent. Left ovary is not visualized. No free fluid. IMPRESSION: THERE IS A SINGLE IUP WITH ESTIMATED GESTATIONAL AGE BASED UPON CROWN-RUMP LENGTH OF 10 WEEKS 2 DAYS +/- 1 WEEK WITH HEART RATE OF 155 BPM. ANATOMY IS NOT ASSESSED DUE TO EARLY GESTATIONAL AGE. THE RIGHT OVARY IS SURGICALLY ABSENT. THE LEFT OVARY SUBMITTED VISUALIZED. [facility] [place] PROGRESSon 09-30-2018 PROGRESS HNO ID: [id number] Author: Maranda Celis Service: ? Author Type: CONSUMER INSIGHTS SPECIALIST Type: Progress Notes Filed: 09/30/2018 3:29 PM Note Text: ASSESSMENT/PLAN: 1. Abrasion of left cornea, initial encounter - ICD9: 918.1, ICD10: S05.02XA Vs early herpes simplex keratitis patient has cold sore and red, light sensitive eye with epi defect Valtrex three times a day by mouth x 7 days Tobramycin four times a day x 5 days to left eye Return to clinic: end of week Maranda Celis, OD I have confirmed and edited as necessary the relevant HPI, ophthalmic history, ROS, and the neuro exam findings as obtained by others. I have seen and examined this patient. I have discussed the case and the management of this patient's care with the Resident/Fellow, if applicable. I also have reviewed and agree with the assessment and plan as stated above and agree with all of its relevant components. Maranda Celis, OD September 30, 2018 2:08 PM Normal [facility] PROGRESSon 04-24-2018 PROGRESS HNO ID: [id number] Author: Maranda Celis Service: ? Author Type: CONSUMER INSIGHTS SPECIALIST Type: Progress Notes Filed: 04/24/2018 3:32 PM Note Text: ASSESSMENT/PLAN: 1. Myopia of both eyes with astigmatism - ICD9: 367.1, 367.20, ICD10: H52.13, H52.203 (primary diagnosis) New glasses 2. Accommodative insufficiency - ICD9: 367.4, ICD10: H52.4 Patient declines bifocal On manifest refraction demo, near clarity similar with and without bifocal 3. Photophobia of both eyes - ICD9: 368.13, ICD10: H53.143 Patient educated transitions extra cost She is good with sunglasses over Return to clinic: 1-2 years Maranda Celis, OD I have confirmed and edited as necessary the relevant HPI, ophthalmic history, ROS, and the neuro exam findings as obtained by others. I have seen and examined this patient. I have discussed the case and the management of this patient's care with the Resident/Fellow, if applicable. I also have reviewed and agree with the assessment and plan as stated above and agree with all of its relevant components. Maranda Celis, OD April 24, 2018 3:31 PM Normal [facility] Office Visit (Urgent Care)on 08-21-2017 Office Visit (Urgent Care) Chief Complaint Rash History of Present Pbrwkph27-[id number]-tcp female who 2 hours ago was sitting on her friends couch and noted some itchy spots on her arms and legs. She does not recall any specific bites or other exposures. No difficulty swallowing or breathing.Review of systems is otherwise negative for constitutional, ear nose and throat, neck, heart, lungs, and abdomen. Review of SystemsConstitutional : as noted in HPI. Social History Current every day smoker (305.1) (F17.200) Allergies No Known Drug Allergies Recorded By: Wayne Hodges; 08/21/2017 5:38:10 PM Vitals Vital Signs Recorded: [id number] 05:26ZAHwytlzffqid67. 5 FHeart Zsqp285Wvajemzdndz22B bdcvkcs352Wbjusxtyq68 Height5 ft 3 mnGpkqnh729 lb BMI Mqyhdrmjwx61NOI Calculated1.83O2 Anzpyomkbs51Myeg Scale0 Physical ExamPatient appears in no apparent distress and is well-hydrated. Vital signs noted. The neck is supple with a normal swallow. Lungs are clear with no wheezing. Examination of the skin reveals 2 isolated areas of induration with mild erythema but no tenderness on the right lateral thigh. Diagnoses/Problems Allergy to insect bites (V15.06) (Z91.038) Patient Discussion/SummaryTod ay you were seen by Uzma Please see your primary care physician in days. as needed May take Benadryl 1-2 tablets 4 times a day as needed for itch. Signatures Electronically signed by : Jordon Gusman MD; Aug 21 2017 5:57PM EST (Author) [facility] Vital Signs Date Time Vital Sign Value Performing Clinician Faci lity 12-16-2021 07:12-0400 Body height 160 cm Sulema Teran DO Work Phone: [employer] 12-16-2021 07:12-0400 Body mass index (BMI) [Ratio] 31.89 kg/m2 Sulema Teran DO Work Phone: [employer] 12-16-2021 07:12-0400 Body temperature 98.91 [degF] Sulema Teran DO Work Phone: [facility] 12-16-2021 07:12-0400 Body weight 81.65 kg Sulema Teran DO Work Phone: [employer] 12-16-2021 07:12-0400 Diastolic blood pressure 84 mm[Hg] Sulema Teran DO Work Phone: [facility] [employer] 12-16-2021 07:12-0400 Heart rate 104 /min Sulema Teran DO Work Phone: [facility] [employer] 12-16-2021 07:12-0400 Respiratory rate 18 /min Sulema Teran DO Work Phone: [facility] [employer] 12-16-2021 07:12-0400 SaO2% (BldA) [Mass fraction] 98 % Sulema Teran DO Work Phone: [facility] [employer] 12-16-2021 07:12-0400 Systolic blood pressure 127 mm[Hg] Sulema Teran DO Work Phone: [facility] [employer] 10-28-2021 15:43-0400 Body height 160 cm Nikki Martha-David PA-C Work Phone: [facility] [employer] 10-28-2021 15:43-0400 Body mass index (BMI) [Ratio] 31.89 kg/m2 Nikki Martha-David PA-C Work Phone: [facility] [employer] 10-28-2021 15:43-0400 Body temperature 98.1 [degF] Nikki Martha-David PA-C Work Phone: [facility] [employer] 10-28-2021 15:43-0400 Body weight 81.65 kg Nikki Martha-David PA-C Work Phone: [facility] [employer] 10-28-2021 15:43-0400 Diastolic blood pressure 81 mm[Hg] Nikki Martha-David PA-C Work Phone: [facility] [employer] 10-28-2021 15:43-0400 Heart rate 93 /min Nikki Martha-David PA-C Work Phone: [facility] 10-28-2021 15:43-0400 Respiratory rate 20 /min Nikki Marhta-David PA-C Work Phone: [facility] [employer] 10-28-2021 15:43-0400 SaO2% (BldA) [Mass fraction] 98 % Nikki Martha-David PA-C Work Phone: [facility] [employer] 10-28-2021 15:43-0400 Systolic blood pressure 130 mm[Hg] Nikki Martha-David PA-C Work Phone: [facility] 08-21-2021 06:21-0400 Body temperature 98.2 [degF] Penny Ritter MD Work Phone: [employer] 08-21-2021 06:21-0400 Diastolic blood pressure 58 mm[Hg] Penny Ritter MD Work Phone: [employer] 08-21-2021 06:21-0400 Heart rate 81 /min Penny Ritter MD Work Phone: [employer] 08-21-2021 06:21-0400 Respiratory rate 16 /min Penny Ritter MD Work Phone: [employer] 08-21-2021 06:21-0400 SaO2% (BldA) [Mass fraction] 97 % Penny Ritter MD Work Phone: [facility] 08-21-2021 06:21-0400 Systolic blood pressure 116 mm[Hg] Penny Ritter MD Work Phone: [employer] 08-21-2021 01:09-0400 Body height 160 cm Penny Ritter MD Work Phone: [facility] 08-21-2021 01:09-0400 Body mass index (BMI) [Ratio] 32.06 kg/m2 Penny Ritter MD Work Phone: [facility] 08-21-2021 01:09-0400 Body weight 82.1 kg Penny Ritter MD Work Phone: [facility] 11-05-2020 07:21-0400 Body temperature 98.1 [degF] [employer] Work Phone: 11-05-2020 07:21-0400 Diastolic blood pressure 71 mm[Hg] [employer] Work Phone: 11-05-2020 07:21-0400 Heart rate 94 /min [employer] Work Phone: 11-05-2020 07:21-0400 Respiratory rate 18 /min [employer] Work Phone: 11-05-2020 07:21-0400 SaO2% (BldA) [Mass fraction] 99 % [employer] Work Phone: 11-05-2020 07:21-0400 Systolic blood pressure 116 mm[Hg] [employer] Work Phone: 02-29-2020 12:25-0500 Body Temperature 97.7 [degF] Rj [employer] [place], [place] 02-29-2020 12:25-0500 BP Diastolic 56 mm[Hg] Rj [employer] , [place] 02-29-2020 12:25-0500 BP Systolic 123 mm[Hg] Rj [employer] , [place] 02-29-2020 12:25-0500 Pulse (Heart Rate) 76 /min [facility] [employer], [place] 02-29-2020 12:25-0500 Pulse Oximetry 99 % Rj [employer] , [place] 02-29-2020 12:25-0500 Respiratory Rate 16 /min Rj [employer] [place], [place] 02-29-2020 08:15-0500 BMI (Body Mass Index) 34.54 kg/m2 Rj Krishna [facility] [place], [place] 02-29-2020 08:15-0500 Body weight 88.45 kg Rj Krishna [facility] , [place] 02-29-2020 08:15-0500 Height 160 cm Rj Krishna [facility] , [place] 11-04-2019 07:30-0400 Body Temperature 98.29 [degF] [facility] [place] 11-04-2019 07:30-0400 BP Diastolic 68 mm[Hg] Rj [facility] , [place] 11-04-2019 07:30-0400 BP Systolic 115 mm[Hg] Rj Savannah [facility] , [place] 11-04-2019 07:30-0400 Pulse (Heart Rate) 88 /min [facility] [place] 11-04-2019 07:30-0400 Respiratory Rate 16 /min Rj Krishna [facility], [place] 11-03-2019 12:37-0400 Pulse Oximetry 99 % [facility] [place] 11-02-2019 07:45-0400 BMI (Body Mass Index) 37.91 kg/m2 Rj Krishna [facility] [place], [place] 11-02-2019 07:45-0400 Body weight 97.07 kg Rj Aguilar [facility] , [place] 11-02-2019 07:45-0400 Height 160 cm Rj Aguilar [facility] , [place] 09-30-2018 10:02-0400 BMI (Body Mass Index) 31 kg/m2 Tip Krishna [facility] [place], [place] 09-30-2018 10:02-0400 Body Temperature 98.49 [degF] Tip Antunez [facility] [place] [facility] 09-30-2018 10:02-0400 Body weight 79.38 kg Tip Antunez [facility] , [place] 09-30-2018 10:02-0400 BP Diastolic 71 mm[Hg] [facility] [place] [facility] [place] 09-30-2018 10:02-0400 BP Systolic 139 mm[Hg] [facility] [place] [facility] [place] 09-30-2018 10:02-0400 Height 160 cm [facility] , [place] 09-30-2018 10:02-0400 Pulse (Heart Rate) 102 /min [facility], [place] 09-30-2018 10:02-0400 Pulse Oximetry 98 % [facility] , [place] 09-30-2018 10:02-0400 Respiratory Rate 14 /min [facility], [place] Encounters Encounter Date Encounter Type Care Provider Facility Start: 03-11-2023 End: 03-11-2023 ambulatory JOSE F SETH Not Available Start: 02-18-2023 End: 02-18-2023 ambulatory DONNELL SAWANTEY Not Available Start: 01-29-2023 End: 01-30-2023 ambulatory [facility] Facility:[facility] Start: 01-29-2023 End: 01-29-2023 Patient encounter procedure Jose F R SETH [place] Start: 01-29-2023 End: 01-30-2023 ambulatory Jose F R SETH Facility:[facility] Start: 01-29-2023 End: 01-29-2023 Patient encounter procedure Jose F R SETH [place] Start: 01-11-2023 End: 01-12-2023 ambulatory Jose F R SETH Facility:[facility] Start: 01-11-2023 End: 01-11-2023 Patient encounter procedure Jose F R SETH [place] Start: 01-10-2023 End: 01-10-2023 ambulatory JOSE F SETH Not Available Start: 12-28-2022 End: 12-28-2022 ambulatory DONNELL SAWANTEY Not Available Start: 07-31-2022 End: 07-31-2022 Emergency department patient visit [facility] Start: 04-11-2022 End: 04-12-2022 ambulatory LILIANA TORRIE [facility] Start: 04-11-2022 End: 04-11-2022 Subsequent hospital visit by physician Nikki Mcgovern PA-C Work Phone: [facility] Comment on above: Tonsillitis with exu date Start: 12-16-2021 End: 12-16-2021 Emergency department patient visit [facility] Start: 12-16-2021 End: 12-16-2021 Emergency department patient visit Sulema Teran DO Work Phone: [facility] ED Comment on above: Bitten by mouse, ini tial encounter (Primary Dx) Start: 11-29-2021 End: 11-29-2021 ambulatory [facility] Start: 10-28-2021 End: 10-28-2021 Emergency department patient visit [facility] Start: 10-28-2021 End: 10-28-2021 [facility] Work Phone[facility] Comment on above: Cellulitis of trunk, unspecified site of trunk (Primary Dx) Start: 08-21-2021 End: 08-21-2021 Emergency department patient visit [facility] Start: 08-21-2021 End: 08-21-2021 Emergency department patient visit Penny Ritter MD Work Phone: [facility] ED Comment on above: Acute gastritis with out hemorrhage, unspecified gastritis type (Primary Dx) Start: 11-05-2020 End: 11-05-2020 Emergency department patient visit Rebecca Gonzalez DO [facility] ED Comment on above: Dental abscess (Prim shilpi Dx) Start: 08-12-2020 End: 08-12-2020 Subsequent hospital visit by physician Joni Ekg Rm 1 EKG Comment on above: Arrived Heart palpitations Start: 02-29-2020 End: 02-29-2020 Subsequent hospital visit by physician Rj Aguilar Work Phone: [facility] Comment on above: Postoperative pain ( Primary Dx) Start: 11-02-2019 End: 11-04-2019 Evaluation and management of inpatient Rj Aguilar Work Phone: [facility] Comment on above: Postoperative pain ( Primary Dx) Start: 10-23-2019 End: 10-23-2019 Subsequent hospital visit by physician Nikki [facility] Start: 06-19-2019 End: 06-21-2019 Subsequent hospital visit by physician Madhav Ultrasound 3 [facility] Madhav Ultrasound Comment on above: Amenorrhea Start: 04-14-2019 End: 04-16-2019 Subsequent hospital visit by physician Olvera Ultrasound Room 1 [facility] Ultrasound Comment on above: Amenorrhea Start: 09-30-2018 End: 09-30-2018 Emergency department patient visit Tip Antunez Work Phone: [facility] ED Comment on above: Pain around left eye (Primary Dx) Procedures Date Procedure Procedure Detail Performing Clinician Start: 10-28-2021 Ct abdomen & pelvis w/contrast material 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 - [employer] Other Phone: Start: 10-28-2021 Blood count complete auto&auto difrntl wbc [place] 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 - [employer] Other Phone: Start: 10-28-2021 Urine test visual color cmprsn meths [place] 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 - [employer] Other Phone: Start: 08-21-2021 Assay of lipase Jose Ritter MD Work Phone: Start: 08-21-2021 COVID-19, RAPID Jose Ritter MD Work Phone: Start: 08-21-2021 Urine test visual color cmprsn meths Penny Ritter MD Work Phone: Start: 07-12-2020 Microscopic observat ion [Identifier] in Cervix by Cyto stain Rebecca Gonzalez DO Start: 02-29-2020 Urine test visual color cmprsn meths Junior Fuentes Work Phone: Start: 02-29-2020 Blood count complete auto&auto difrntl wbc Junior A Fuentes Work Phone: Start: 02-29-2020 COVID-19 Junior A Ya xavier Work Phone: Start: 11-03-2019 Blood count hemoglobin Rj Reno Lauren Work Phone: Start: 11-02-2019 End: 11-02-2019 delivery only Rj Aguilar Work Phone: Start: 11-02-2019 Antibody screen Rj hidalgo Start: 11-02-2019 Blood count complete auto&auto difrntl wbc Rj Aguilar Work Phone: Start: 11-02-2019 Iaad ia hepatitis b surface antigen Rj Aguilar Work Phone: Start: 11-02-2019 Immunoassay infectio us agent antibody brett nos Rj Aguilar Work Phone: Start: 11-02-2019 Syphilis test non-treponemal antibody qual Rj Aguilar Work Phone: Start: 11-02-2019 Urnls dip stick/tabl et rgnt auto w/o microscopy Rj Aguilar Work Phone: Start: 11-02-2019 Blood typing serolog ic abo Rj Aguilar Work Phone: Start: 11-02-2019 Comprehensive metabo lic panel Rj Aguilar Work Phone: Start: 11-02-2019 Drug screen class list a Rj Aguilar Work Phone: Start: 06-19-2019 Us preg uterus after 1st trimest 02/11 gestation Rj Aguilar Work Phone: Start: 06-19-2019 Us preg uterus real time w/image dcmtn transvag Rj Aguilar Work Phone: Start: 04-14-2019 Us uterus 1 4 wk transabdl 02/11 gestat Rj Aguilar Work Phone: c section x2 Jose F SETH Colonoscopy Jose F ANN extraction of wisdom teeth Jose F ANN H/O: section Previous c esarean section Mloz 1 Plan of Treatment Date Care Activity Detail Author Start: 12-17-2031 DTaP/Tdap/Td vaccine (3 - Td or Tdap) DTaP/Tdap/Td vaccine (3 - Td or Tdap) [facility] Start: 07-12-2025 Screening for malign ant neoplasm of cervix [facility] Start: 05-27-2024 Screening for malign ant neoplasm of cervix Cervical cancer screen [place], [place] Start: 07-13-2023 Screening for malign ant neoplasm of cervix Pap smear [facility] Start: 03-07-2023 Depression Monitoring Depression Mon itoring [facility] Start: 08-29-2022 Depression Monitoring Depression Mon itoring [facility] Start: 06-08-2022 End: 06-08-2022 Patient encounter procedure 06/08/2022 Office Visit Neurology Blas Mike MD [address] [facility] [address] [place] [address] [facility] Neurology Start: 02-02-2022 End: 02-02-2022 Patient encounter procedure 02/02/2022 Office Visit Neurology Blas Mike MD [address] [facility] [address] [place] [address] [facility] Neurology Start: 01-10-2022 End: 01-10-2022 Patient encounter procedure 01/10/2022 Office Visit Family Medicine Nikki Mcgovern PA-C [address] [place] [address] [facility] Start: 12-18-2021 End: 12-18-2021 Patient encounter procedure 12/18/2021 Office Visit Orthopedic Surgery Alena Chandra MD [address] [place] [address] [facility] Start: 10-12-2021 Influenza vaccination Flu vaccine (# 1) [facility] Start: 09-29-2021 End: 09-29-2021 Patient encounter procedure 09/29/2021 Office Visit Neurology Blas Mike MD [address] [place] [address] [facility] Neurology Start: 09-11-2021 Influenza vaccination Flu vaccine (# 1) [facility] Start: 01-20-2021 End: 01-20-2021 Patient encounter procedure 01/20/2021 Office Visit Neurology Blas Mike MD [address] [place] [address] [phone] [facility] Neurology Start: 12-01-2020 End: 12-01-2020 Patient encounter procedure 12/01/2020 Office Visit Obstetrics and Gynecology Rj Aguilar, [address] [place] [address] [phone] [facility] Obstetrics and Gynecology Start: 10-12-2020 Influenza vaccination Flu vaccine (# 1) [facility] Work Phone: Start: 09-29-2020 End: 09-29-2020 Patient encounter procedure 09/29/2020 Office Visit Family Medicine Nikki Mcgovern PA-C [address] [place] [address] [phone] [facility] Start: 09-16-2020 End: 09-16-2020 Patient encounter procedure 09/16/2020 Office Visit Neurology Blas Mike MD [address] [place] [address] [phone] [facility] Neurology Start: 02-16-2020 End: 02-16-2020 Procedure visit 02/16/2020 Procedure visit Obstetrics and Gynecology Rj Aguilar, DO [address] [place] [address] [phone] [facility] Obstetrics and Gynecology Start: 12-01-2019 DTaP/Tdap/Td vaccine (2 - Td or Tdap) DTaP/Tdap/Td vaccine (2 - Td or Tdap) [facility] Start: 12-01-2019 DTaP/Tdap/Td vaccine (2 - Td) DTaP/Tdap/Td vaccine (2 - Td) [place] Start: 10-13-2019 Influenza vaccination [place], [place] Start: 06-25-2019 End: 06-25-2019 Routine 06/25/2019 Routine Obstetrics and Gynecology Rj Aguilar, [address] [place] [address] [phone] [facility] Obstetrics and Gynecology Start: 05-05-2019 End: 05-05-2019 Routine 05/05/2019 Routine Obstetrics and Gynecology Rj Aguilar, [address] [place] [address] [phone] [facility] Obstetrics and Gynecology Start: 10-12-2018 Influenza vaccination Flu vaccine (# 1) [place] Start: 05-07-2016 Cervical cancer screen Cervical canc er screen [place], [place] Start: 10-20-2000 Varicella Vaccine (1 of 2 - 13+ 2-dose series) Varicella Vaccine (1 of 2 - 13+ 2-dose series) [place], [place] Start: 1999 COVID-19 Vaccine (1) COVID-19 Vaccin e (1) [facility] Work Phone: Start: 1999 Depression Monitoring Depression Mon itoring [facility] Start: 10-20-1993 Pneumococcal 0-64 ye ars Vaccine (1 - PCV) Pneumococcal 0-64 years Vaccine (1 - PCV) [facility] Start: 10-20-1993 Pneumococcal 0-64 ye ars Vaccine (1 of 1 - PPSV23) Pneumococcal 0-64 years Vaccine (1 of 1 - PPSV23) [employer] [place] Start: 10-20-1993 Pneumococcal 0-64 ye ars Vaccine (1 of 2 - PPSV23) Pneumococcal 0-64 years Vaccine (1 of 2 - PPSV23) [employer] Phone: Start: 10-20-1992 COVID-19 Vaccine (1) COVID-19 Vaccin e (1) [facility] Start: 10-20-1988 Varicella vaccine (1 of 2 - 2-dose childhood series) Varicella vaccine (1 of 2 - 2-dose childhood series) [facility] Start: 04-19-1988 COVID-19 Vaccine (#1) COVID-19 Vacci ne (#1) [facility] End: 08-21-2021 CT ABDOMEN PELVIS W IV CONTRAST Additional Contrast? None CT ABDOMEN PELVIS W IV CONTRAST Additional Contrast? None Imaging Routine Once for 1 Occurrences starting 08/21/2021 until 08/21/2021 [employer] Phone: Comment on above: Once for 1 Occurrenc es starting 08/21/2021 until 08/21/2021 CT ABDOMEN PELVIS W IV CONTRAST Additional Contrast? None CT ABDOMEN PELVIS W IV CONTRAST Additional Contrast? None Imaging STAT 08/21/2021 2:34 AM EDT [employer] Phone: End: 10-28-2021 Culture, Anaerobic and Aerobic Culture, Anaerobic and Aerobic Microbiology Routine One Time for 1 Occurrences starting 10/28/2021 until 10/28/2021 [employer] Phone: Comment on above: One Time for 1 Occur rences starting 10/28/2021 until 10/28/2021 End: 04-11-2022 Culture, Throat [employer] Phone: Comment on above: 1 Occurrences starti ng 04/11/2022 until 04/11/2022 End: 08-12-2020 Holter Monitor 48 Hour Holter Monitor 48 Hour Cardiac Services Routine Heart palpitations 1 Occurrences starting 08/12/2020 until 08/12/2020 [facility] Work Phone: Comment on above: 1 Occurrences starti ng 08/12/2020 until 08/12/2020 O[place] therapy [[facility] [place], [place] Comment on above: Daily until disconti nued starting 11/02/2019 Daily until disconti nued starting 02/29/2020 Phase I & II - meter ed glucose Phase I & II - metered glucose Point of Care Testing Routine As Needed until discontinued starting 02/29/2020 [place] Comment on above: As Needed until disc ontinued starting 02/29/2020 End: 11-02-2019 RHOGAM INJECTION ONLY RHOGAM INJECTION ONLY Blood Bank Routine One Time for 1 Occurrences starting 11/02/2019 until 11/02/2019 [place] Comment on above: One Time for 1 Occur rences starting 11/02/2019 until 11/02/2019 Spirometry panel Incentive jayleen metry Respiratory Care Routine Every 2hr while awake until discontinued starting 11/02/2019 [place] Comment on above: Every 2hr while awak e until discontinued starting 11/02/2019 Surgical Pathology Surgical Path ology Lab Routine Release Upon Ordering for 1 Occurrences starting 02/29/2020 [facility] [place] Comment on above: Release Upon Orderin g for 1 Occurrences starting 02/29/2020 End: 04-14-2019 US OB Transvaginal US OB Transvaginal Imaging Routine Amenorrhea 1 Occurrences starting 04/14/2019 until 04/14/2019 [facility] [place] Comment on above: 1 Occurrences starti ng 04/14/2019 until 04/14/2019 US OB Transvaginal US OB Transva ginal Imaging Routine Amenorrhea 04/14/2019 2:44 PM EST [place] Immunizations Immunization Date Immunization Notes Care Provider Nata storey 12-16-2021 tetanus toxoid, redu jameson diphtheria toxoid, and acellular pertussis vaccine, adsorbed Sulema Teran DO Work Phone: [facility]AKUL UMANA [facility] 11-02-2019 diphtheria, tetanus toxoids and acellular pertussis vaccine, unspecified formulation Rj Aguilar [facility] [place] , [place] 01-22-2017 tetanus toxoid, redu jameson diphtheria toxoid, and acellular pertussis vaccine, adsorbed Jose F ANN [place] Comment on above: Reason for Medicatio n: Other (see comment) 11-30-2009 tetanus toxoid, redu jameson diphtheria toxoid, and acellular pertussis vaccine, adsorbed Tip Antunez [facility] DONG [facility] 10-04-2000 measles, mumps and rubella virus vaccine Rebecca Gonzalez DO [facility] Work Phone: Payers Date Payer Category Payer Unknown , [id number] 2017 Unknown [id number] 2016 Unknown [facility] MEDICAID xxxxxxxxxxx 2016-Present [phone] CLAIMS DEPARTMENT [address] [place] [address] xxxxxxxxxxx [id number] 2016 Unknown [id number] 1987 Unknown [id number] 1987 Unknown [id number] 1987 Unknown [id number] 1987 Unknown [id number] 1987 Unknown [id number] 1987 Unknown [id number] 1987 Unknown [id number] 1987 Unknown [id number] [id number] 1987 Unknown [id number] [id number] 1987 Unknown [id number] [id number] 1987 Unknown [id number] 1987 Unknown [id number] 1987 Unknown [id number] Social History Date Type Detail Facility Start: 09-30-2018 End: 08-29-2021 Tobacco smoking status NHIS [facility] of tobacco use Cigarette Smoker [place], [place] Start: 09-30-2018 End: 08-29-2021 Cigarettes smoked current (pack per day) - Reported [place], [place] Start: 09-30-2018 Alcohol intake No [place] Start: 1985 Sex Assigned At Not on file [place], [place] Start: 04-07-2019 End: 04-11-2022 Alcohol intake Current non-drinker of alcohol (finding) [place], [place] Start: 02-19-2019 [place], [place] Exposure to SARS-CoV -2 (event) Unable to assess [place] Start: 11-03-2019 End: 08-29-2021 Tobacco use and exposure Never used [place], [place] Start: 08-11-2021 End: 04-11-2022 Exposure to SARS-CoV-2 (event) Not sure [place] Start: 08-04-2020 End: 04-09-2022 History 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 [employer] Phone: Start: 08-04-2020 End: 04-09-2022 History 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 [employer] Phone: Start: 1985 Sex Assigned At Female B ON [employer] Start: 10-18-2021 End: 12-16-2021 Exposure to SARS-CoV-2 (event) Yes [facility] [employer] Start: 04-09-2022 History SDOH Transpo rt Non-Med 2 [facility] [employer] Phone: Start: 10-13-2017 Tobacco smoking status Heavy t obacco smoker (finding) [place] [facility] Procedure Code Equipment Code Equipment Origin al Text Equipment Identifier Dates fluorescein ophthalmic strip 1 mg [id number] Start: 09-30-2018 End: 09-30-2018 Clinical Notes 08-21-2021 to 01-11-2023 InstructionsAttachments Note Date & Type Note Facility 01-11-2023 Evaluation + Plan note Diagnostic Tests PendingHIV Screen 4th Generation wR[employer] 01/11/23Hepatitis B Surface Antigen 01/11/23RPR with Conf Rfx 01/11/23Rubella Antibody IgG 01/11/23HCV Antibody RFX to Quant PCR 01/11/23Urine Culture 01/11/23 [place] 08-21-2021 Hospital Discharg e instructions Penny Ritter MD - 08/21/2021 Return to the Emergency Department immediately if you develop worsening symptoms, or you have any other concerns. Please follow up with your family doctor in 1-2 days. The following attachments cannot be sent through Care Everywhere.Gastritis (Cambodian)documented in this encounter [employer] Phone: Evaluation note Diagnosis Heart palpitations Palpitations documented in this encounter [employer] Phone: evaluation note* Diagnosis Dental abscess- Primary Periapical abscess without sinus documented in this encounter [employer] Phone: evaluation note* Diagnosis Acute gastritis without hemorrhage, unspecified gastritis type- Primary documented in this encounter [employer] [employer] Phone: evaluation note* Diagnosis Cellulitis of trunk, unspecified site of trunk- Primary documented in this encounter [facility] [employer] Phone: evaluation note* Diagnosis Bitten by mouse, initial encounter- Primary documented in this encounter [facility] [employer] Phone: evaluation note* Diagnosis Tonsillitis with exudate Acute tonsillitis documented in this encounter [facility] [employer] Phone: Hospital course Narrative No data available for this section [facility]* Attachments The following attachments cannot be sent through Care Everywhere. * To[facility]: [facility]ed (Cambodian[facility] [employer] [facility]: Hospital Discharge instructions* Attachments The following attachments cannot be sent through Care Everywhere. * Cellulitis (Cambodian) [facility] [employer] Phone: Hospital Discharge instructions* Attachments The following attachments cannot be sent through Care Everywhere. * Bites: Animal (Cambodian) [facility] [employer] Phone: Hospital Discharge instructions No data available for this section [facility] No data available for this section [place] Summary Purpose Family History No Family History Records FoundNo Family History Records FoundNo Family History Records FoundNo Family History Records FoundNo Family History Records Found No data available for this section No data available for this section No data available for this section No Family History Records FoundNo Family History Records Found Advance Directives No Advanced Directives Records FoundDocuments on File Type Date Recorded Patient Religion Instructor Expl anation Advance Directives and Living Will Power of Pinsetter Mechanic Helper Documents on File Type Date Recorded Patient Religion Instructor Expl anation Advance Directives and Living Will Power of Pinsetter Mechanic Helper Documents on File Type Date Recorded Patient Religion Instructor Expl anation ACP-Advance Directive ACP-Power of Pinsetter Mechanic Helper Latest Code Status on File Code Status Date Activated Date Inactivated Comments Full Code 11/02/2019 12:26 PM Full Code 11/02/2019 7:35 AM 11/02/2019 12:26 PM Latest Code Status on File Code Status Date Activated Date Inactivated Comments Full Code 11/02/2019 12:26 PM 11/04/2019 3:22 PM Documents on File Type Date Recorded Patient Religion Instructor Expl anation ACP-Advance Directive ACP-Power of Pinsetter Mechanic Helper Latest Code Status on File Code Status Date Activated Date Inactivated Comments Full Code 02/29/2020 12:15 PM Full Code 11/02/2019 12:26 PM 11/04/2019 3:22 PM Full Code 11/02/2019 7:35 AM 11/02/2019 12:26 PM Latest Code Status on File Code Status Date Activated Date Inactivated Comments Full Code 02/29/2020 12:15 PM 02/29/2020 2:56 PM Full Code 11/02/2019 12:26 PM 11/04/2019 3:22 PM Latest Code Status on File Code Status Date Activated Date Inactivated Comments Full Code 02/29/2020 12:15 PM 02/29/2020 2:56 PM Discharge Instructions * Instructions* Tip Antunez MD - 09/30/2018 If your vision gets worse or symptoms progress in any way, please seek immediate re-evaluation. documented in this encounter* Instructions* Mouna Flood RN - 11/04/2019 Discharge Instructions: Please notify Physician if: Pain not controlled by pain medications Heavy vaginal bleeding (> 1pad per hour for 2 or more consecutive hours) Fevers greater than or equal to 100.4 degrees Farenheit or 38.0 degrees Celsius Symptoms of post- depression Mastitis (infection of the breasts) Any other questions or concerns Post- Precautions and Instructions: Pelvic rest (Nothing in the vagina, i.e. Tampons/intercourse/douches) until your pain has resolved and you no longer need pain medications No driving while taking pain medications If intercourse attempted, please use barrier method (such as condoms) * Attachments The following attachments cannot be sent through Care Everywhere. * OB CORONAVIRUS (COVID-19): , AND BABY CARE DISCHARGE INSTRUCTIONS documented in this encounter* Attachments The following attachments cannot be sent through Care Everywhere. * LEEP (LOOP ELECTROSURGICAL EXCISION PROCEDURE): POST-OP (SERBIAN) * Coronavirus Disease (COVID-19): General Info (Cambodian) documented in this encounter Assessments Diagnosis Pain around left eye- Primary Diagnosis Amenorrhea Absence of menstruation Diagnosis Amenorrhea Absence of menstruation Diagnosis Postoperative pain Other acute postoperative pain Term Previous section Other postprocedural status 39 weeks gestation of state, incidental Diagnosis Postoperative pain- Primary Other acute postoperative pain Reason for Referral Status Reason Specialty Diagnoses / Procedures Referre d By Contact Referred To Contact [facility] Diagnoses Amenorrhea Procedures US OB LESS THAN 14 WEEKS SINGLE OR FIRST GESTATION Rj Aguilar, DO [address] [place] [address] Status Reason Specialty Diagnoses / Procedures Referre d By Contact Referred To Contact [facility] Diagnoses Amenorrhea Procedures US OB Transvaginal Rj Aguilar, DO [address] [place] [address] Status Reason Specialty Diagnoses / Procedures Referre d By Contact Referred To Contact [facility] Diagnoses Amenorrhea Procedures US OB TRANSVAGINAL Rj Aguilar, DO [address] [place] [address] Status Reason Specialty Diagnoses / Procedures Referred By Contact Referred To Contact Not Required - [facility] Diagnoses Amenorrhea Procedures US OB 14 Plus Weeks Single or First Gestation HC US OB GREATER THAN 14 WEEKS SINGLE FETUS Rj Aguilar, DO [address] [place] [address] Status Reason Specialty Diagnoses / Procedures Referre d By Contact Referred To Contact Closed Diagnoses Heart palpitations Procedures Holter Monitor 48 Hour Nikki Mcgovern PA-C [address] [place] [address] History of Present Illness * Rj Aguilar, - 11/03/2019 7:01 AM EDT C Section Progress Note Subjective: 34 y.o. @ 39w1d Day 1: Delivery for repeat The patient feels well. The patient denies emotional concerns. Pain is well controlled with currentmedications. The baby iswell. Baby is feeding via breast. Urinary output is adequate. The patient is ambulating well. The patient is tolerating a normal diet. Flatus denies been passed. Objective: Patient Vitals for the past 8 hrs: BP Temp Temp src Pulse Resp SpO2 11/03/19 0437 97 % 11/03/19 0427 (!) 109/56 98 F (36.7 C) Oral 82 16 11/03/19 0016 (!) 106/53 97.8 F (36.6 C) Oral 73 16 General: alert, appears stated age and cooperative Bowel Sounds: active Lochia: appropriate Uterine Fundus: firm Incision: healing well, no significant drainage, no dehiscence, no significant erythema DVT Evaluation: No evidence of DVT seen on physical exam. Assessment: Status post section. Doing well postoperatively. Plan: 1.Routine post op care Continue current care. Rj Aguilar documented in this encounter* Nichol Medley RN - 02/29/2020 12:35 PM EST Med for ache, disch inst given and exlained to pt presc at pharm , up to bathroom voided QS, dressed waiting on ride home. * Rj Aguilar DO - 02/29/2020 10:36 AM EST Department of Obstetrics and Gynecology History & Physical Pt Name: Krysta Servin Evangelista Date of : 1985 Estimated Date of Delivery: None noted. HPI: The patient is a 34 y.o. female who presents for a LEEP for CIN2 Allergies: Allergies as of 02/26/2020 (No Known Allergies) Medications: Current Facility-Administered Medications: lactated ringers infusion, , Intravenous, Continuous, Rj Aguilar DO, Last Rate: 125 mL/hr at02/29/20 0859, New Bag at 02/29/20 0859 ceFAZolin (ANCEF) 2 g in dextrose 3 % 50 mL IVPB (duplex), 2 g, Intravenous, Rv Body Mechanic to OR, Rj Diaz DO meperidine (DEMEROL) injection 12.5 mg, 12.5 mg, Intravenous, Q5 Min PRN, Junior Fuentes MD fentaNYL (SUBLIMAZE) injection 50 mcg, 50 mcg, Intravenous, Q10 Min PRN, Junior Fuentes MD HYDROmorphone (DILAUDID) injection 0.5 mg, 0.5 mg, Intravenous, Q10 Min PRN, Junior Fuentes MD HYDROcodone-acetaminophen (NORCO) 5-325 MG per tablet 1 tablet, 1 tablet, Oral, PRN OR HYDROcodone-acetaminophen (NORCO) 5-325 MG per tablet 2 tablet, 2 tablet, Oral, PRN, Junior Fuentes MD ondansetron (ZOFRAN) injection 4 mg, 4 mg, Intravenous, Once PRN, Junior Fuentes MD metoclopramide (REGLAN) injection 10 mg, 10 mg, Intravenous, Once PRN, Junior Fuentes MD diphenhydrAMINE (BENADRYL) injection 12.5 mg, 12.5 mg, Intravenous, Once PRN, Junior Fuentes MD lactated ringers infusion, , Intravenous, Continuous, Junior Fuentes MD sodium chloride flush 0.9 % injection 10 mL, 10 mL, Intravenous, 2 times per day, Junior Fuentes MD sodium chloride flush 0.9 % injection 10 mL, 10 mL, Intravenous, PRN, Junior Fuentes MD lidocaine PF 1 % injection 1 mL, 1 mL, Intradermal, Once PRN, Junior Fuentes MD 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 ROS: Negative except as stated in HPI, denies nausea, vomiting, fever, chills, headache or dysuria. PE: Vitals: 02/29/20 0815 BP: 119/71 Pulse: 74 Resp: 16 Temp: 97.3 F (36.3 C) SpO2: 99% General: well nourished, well developed, in no acute distress CV: Normal heart sounds Resp: breathing unlabored Abdomen: Nontender, no rebound, no guarding FH: Cx: NST - Cat 1: FHR 140s, moderate variability, +accels, -decels Labs: Assessment: 34 y.o. female with IWONA 2 Plan: LEEP of terra Aguilar DO documented in this encounter Additional Source Comments INFORMATION SOURCE (unrecogn ized section and content) DATE CREATED AUTHOR 08/21/2017 FREEjit DATE CREATED AUTHOR AUTHOR'S ORGANIZ ATION 10/01/2018 [facility] DATE CREATED AUTHOR AUTHOR'S ORGANIZ ATION 09/01/2021 [facility] DATE CREATED AUTHOR AUTHOR'S ORGANIZ ATION 12/04/2021 [facility] DATE CREATED AUTHOR AUTHOR'S ORGANIZ ATION 07/31/2022 [facility] DATE CREATED AUTHOR AUTHOR'S ORGANIZ ATION 01/31/2023 [facility] DATE CREATED AUTHOR AUTHOR'S ORGANIZ ATION 03/12/2023 [facility] EPIC Reason for Visit (unrecogniz ed section and content) Reason Comments Eye Problem left scleara red, kiran yi denies yellow drainage but states she does have some itching. Status Reason Specialty Diagnoses / Procedures Referre d By Contact Referred To Contact [facility] Diagnoses Amenorrhea Procedures US OB LESS THAN 14 WEEKS SINGLE OR FIRST GESTATION Rj Aguilar DO [address] [place] [address] Status Reason Specialty Diagnoses / Procedures Referred By Contact Referred To Contact Not Required - [facility] Diagnoses Amenorrhea Procedures US OB 14 Plus Weeks Single or First Gestation HC US OB GREATER THAN 14 WEEKS SINGLE FETUS Rj Aguilar, DO [address] [place] [address] Reason Comments Other Scheduled C/S Status Reason Specialty Diagnoses / Procedures Referre d By Contact Referred To Contact Diagnoses Status post repeat low transverse section repeat Procedures AL DELIVERY ONLY SECTION Rj Aguilar, DO [address] [place] [address] [facility] Status Reason Specialty Diagnoses / Procedures Re ferred By Contact Referred To Contact Diagnoses HGSIL Pap smear of anus HGSIL Procedures AL COLPOSCOPY,ENTIRE VAGINA LOOP ELECTROSURGICAL EXCISION PROCEDURE COLPOSCOPY, ECC (PAT ON ADMIT) RAPID COVID Rj Aguilar, DO [address] [place] [address] [facility] Status Reason Specialty Diagnoses / Procedures Referre d By Contact Referred To Contact Closed Diagnoses Heart palpitations Procedures Holter Monitor 48 Hour Nikki Mcgovern PA-C [address] [place] [address] Reason Comments Dental Pain right upper gum swel ling Reason Comments Abdominal Pain Nausea Diarrhea Reason Comments Rash C Section Scar irrit ation/Odor Reason Comments Animal Bite Got bit at work by a mouse Ordered Prescriptions (unrec ognized section and content) Prescription Sig Dispensed Refills Start Date End Da te HYDROcodone-acetaminophe n (NORCO) 5-325 MG per tabletIndications:Postop erative pain Take 1 tablet by mouth every 6 hours as needed for Pain for up to 3 days. Intended supply: 3 days. Take lowest dose possible to manage pain 12 tablet 0 02/29/2020 03/03/2020 Prescription Sig Dispensed Refills Start Date End Da te traMADol (ULTRAM) 50 MG tabletIndications:Denta l abscess Take 1 tablet by mouth every 6 hours as needed for Pain for up to 3 days. Intended supply: 3 days. Take lowest dose possible to manage pain 12 tablet 0 11/05/2020 11/08/2020 clindamycin (CLEOCIN) 300 MG capsule Take 1 capsule by mouth 3 times daily for 10 days 30 capsule 0 11/05/2020 11/15/2020 Prescription Sig Dispensed Refills Start Date End Da te omeprazole (PRILOSEC) 20 MG delayed release capsule Take 2 capsules by mouth Daily 60 capsule 0 08/21/2021 09/20/2021 ondansetron (ZOFRAN-ODT) [address] 1 tablet under the tongue every 8 hours as needed for Nausea or Vomiting May Sub regular tablet (non-ODT) if insurance does not cover ODT. 20 tablet 0 08/21/2021 08/28/2021 Prescription Sig Dispensed Refills Start Date End Da te cephALEXin (KEFLEX) 500 MG capsule Take 1 capsule by mouth 4 times daily for 7 days 28 capsule 0 10/28/2021 11/04/2021 nystatin (MYCOSTATIN) 844869 UNIT/GM powder Apply topically 2 times daily Apply topically 4 times daily. 15 g 0 10/28/2021 Prescription Sig Dispensed Refills Start Date End Da te cephALEXin (KEFLEX) 500 MG capsule Take 1 capsule by mouth 4 times daily for 5 days 20 capsule 0 12/16/2021 12/21/2021 Scheduled Active and Recently Administ ered Medications (unrecognized section and content) Medication Order 08/19/2021 08/20/2021 08/21/2021 0.9 % sodium chloride bolus (COMPLETED) 1,000 mL (12.2 mL/kg), IntraVENous, at 983.6 mL/hr, Administer over 61 Minutes, ONCE, On Sat08/21/21 at 0129, For 1 dose 0154 (New Bag - Prov ider: Roxanne Marcos RN)0318 (Stopped - Provider: Dea Waller RN) famotidine (PEPCID) 20 mg in sodium chloride (PF) 10 mL injection (COMPLETED) 20 mg, IntraVENous, ONCE, 1 dose, On Sat08/21/21 at 0129, IV Push over minimum of 2 minutes - Dilute with 10 mL NS 0153 (Given - Provid er: Roxanne Marcos RN) morphine sulfate (PF) injection 4 mg 4 mg, IntraVENous, ONCE, 1 dose, On Sat08/21/21 at 0129, If oral and IV narcotics ordered, use oral first and only use IV if oral is ineffective or cannot take oral. Do Not give oral and IV within 1 hour of each other unless specifically ordered. 0143 (Held - Provide r: Roxanne Marcos RN - Reason: Patient/family refused) ondansetron (ZOFRAN) injection 4 mg 4 mg, IntraVENous, ONCE, 1 dose, On Sat08/21/21 at 0129 0143 (Held - Provide r: Roxanne Marcos RN - Reason: Patient/family refused) PRN Medication Order 08/19/2021 08/20/2021 08/21/2021 iopamidol (ISOVUE-370) 76 % injection 100 mL (COMPLETED) 100 mL, IntraVENous, IMG ONCE PRN, 1 dose, Starting on 08/21/21 at 0214, Until Discontinued, Other 0226 (Given - Provid er: Jen Cabrera) PRN Medication Order 10/26/2021 10/27/2021 10/28/2021 iopamidol (ISOVUE-370) 76 % injection 75 mL (COMPLETED) 75 mL, IntraVENous, IMG ONCE PRN, 1 dose, Starting on 10/28/21 at 1650, Until 10/28/21 at 1651, Other 1651 (Given - Provid er: Alejandrina Matthews) Scheduled Medication Order 12/14/2021 12/15/2021 12/16/2021 cephALEXin (KEFLEX) capsule 500 mg (COMPLETED) 500 mg, Oral, ONCE, 1 dose, On 12/16/21 at 0725, Antimicrobial Indications: Skin and Soft Tissue Infection 0729 (Given - Provid er: Ivet Castro RN) Care Teams (unrecognized sec tion and content) Assessment Manager Relationship Specialty Start Date End Date Nikki Mcgovern PA-C PCP - General 03/29/15 Assessment Manager Relationship Specialty Start Date End Date Nikki Mcgovern PA-C PCP - General 03/29/15 Assessment Manager Relationship Specialty Start Date End Date Nikki Mcgovern PA-C PCP - General 03/29/15 Assessment Manager Relationship Specialty Start Date End Date MarthaCruzNikki Hernandez PA-C PCP - General 03/29/15 FOR RECORDS PERTAINING TO PATIENTS WHO ARE OR HAVE BEEN ENROLLED IN A CHEMICAL DEPENDENCY/SUBSTANCEABUSE PROGRAM, SOME INFORMATION MAY BE OMITTED. This clinical summary was aggregated from multiple sources. Caution should be exercised in using it in the provision of clinical care. This summary normalizes information from multiple sources, and as a consequence, information in this document may materially change the coding, format and clinical context of patient data. In addition, data may be omitted in some cases. CLINICAL DECISIONS SHOULD BE BASED ON THE PRIMARY CLINICAL RECORDS. [facility]. provides no warranty or guarantee of the accuracy or completeness of information in this document.
[2023-03-18 07:55] LABS: Glucose Fasting 88 mg/dL (74-106)
[2023-03-18 09:33] LABS: Glucose 1 Hour 172 mg/dL
[2023-03-18 10:28] LABS: Glucose 2 Hour 140 mg/dL (<155)
[2023-03-18 11:26] LABS: Glucose 3 Hour 61 mg/dL (<140)
== END 2023-03-18 07:20 | disposition home or self-care (01) ==
LOC: LAB 07:21
PROVIDERS: Visit Provider Obstetrics & Gynecology
DX: O26.893 Other specified pregnancy related conditions, third trimester (principal); R73.09 Other abnormal glucose
CPT/HCPCS: 36415; 82951; 82952

== ENCOUNTER 2023-03-20 07:06 | Outpatient (OUT) | payer OTHER, SELFPAY ==
--- NOTE | 2023-03-20 | US_ITS ---
[address] [address] Patient Name: LARRY COLON MRN: [facility]:[id number] date: 1985 Sex: F Assigned Patient Location: [facility] Current Patient Location: Accession/Order Number: [id number] Exam Date: 03/20/2023 11:05 Report Date: 03/20/2023 13:55 At the request of: ISSAC ANN Procedure: US OB BPP w non-stress EXAMINATION: US OB BPP w non-stress HISTORY: SIZE INCONSISTENT WITH DATS O26.849 COMPARISON: No relevant comparison available. TECHNIQUE: Ultrasound biophysical profile was performed in the radiology department. FINDINGS: BREATHING MOVEMENTS: 2.0 GROSS BODY MOVEMENTS: 2.0 TONE: 2.0 QUALITATIVE AMNIOTIC FLUID VOLUME: 2.0 PRESENTATION: CEPHALIC HEART RATE: 141.4 bpm H.B./min AMNIOTIC FLUID VOLUME: 13.7 cm cm GESTATIONAL AGE: 33 weeks 5 days CONCLUSION: Total biophysical profile score: 8.0 Electronically authenticated by: QUENTIN SOLOMON Date: 03/20/2023 13:55
--- NOTE | 2023-03-20 | US_ITS ---
[address] [address] Patient Name: LARRY COLON MRN: [facility]:[id number] date: 1985 Sex: F Assigned Patient Location: US Current Patient Location: US Accession/Order Number: [id number] Exam Date: 03/20/2023 11:05 Report Date: 03/20/2023 13:57 At the request of: ISSAC ANN Procedure: US OB growth EXAMINATION: US OB growth HISTORY: SIZE INCONSISTENT WITH DATS O26.849 COMPARISON: No relevant comparison available. FINDINGS: Heart Rate: 141.4 bpm Amniotic Fluid Volume: 13.7 cm Number: 1.0 Position: Cephalic presentation, longitudinal lie Maximum Vertical Pocket: 5.5 cm cm 2.2 cm cm 2.6 cm cm 3.4 cm cm BIOMETRY: BPD: 8.3 cm cm; 33 weeks 3 days; 38% HC: 30.2 cmcm; 33 weeks 4 days , 13% AC: 30.2 cm cm; 34 weeks 1 days, 66% FL: 5.9 cm cm; 30 weeks 5 days; <3.0 % % EFW: 2107.1 grams, 4 lbs. 10 oz., 24% FL/AC: 19.4 FL/BPD: 70.6 HC/AC: 1.0 GESTATIONAL AGE: Age by EDC: 33 weeks 5 days PORTILLO by EDC: 05/03/2023 Age by US: 33 weeks 0 days PORTILLO by US: 05/08/2023 US/US OB growth IMPRESSION: Femur length less than the 3rd percentile, otherwise normal interval growth Electronically authenticated by: QUENTIN SOLOMON Date: 03/20/2023 13:57
--- OUTSIDE RECORDS SUMMARY | 2023-03-20 07:10 | XMS_ITS | CCD ---
Author Name Unknown Address [id number] [place] [address] Organization [facility] Care Team Providers Care Telephone Answerer Name Role Phone Nikki Mcgovern Primary Care Provider ANGELES MCGOVERNL Primary Care Unavailabl e RonaDavid PAGege, Nikki Primary Care Provider RonaDavidsheila CORTES Raquel Primary Care Provider RA BUSHRAQUEL Primary Care Unavailabl e PENNY RITTER Attending Unavailable LILIANA CARROLL Referring Unavail able MARTHA-DAVID, NIKKI Primary Care Unavailabl e MARTHA-DAVID, NIKKI Primary Care Unavailabl e SULEMA TERAN Attending Unavailable MARTHA-DAVID, NIKKI Primary Care Unavailabl e MARTHA-DAVID, NIKKI Primary Care Unavailabl SULEMA Clemens Attending Unavailable MARTHA-DAVIDNIKKI SOSA Primary Care Physician Yennifer vailable MARTHA-DAVID NIKKI Primary Care Unavailabl e SETH, Jose F R Referring Unavailable SETH, Jose F R Attending Unavailable SETH, Jose F R Admitting Unavailable SETH, Jose F R Admitting Unavailable MARTHA-DAVID, NIKKI Primary Care Unavailabl e SETH, Jose F R Attending Unavailable SETH, Jose F R Admitting Unavailable MARTHA-DAVID, NIKKI Primary Care Unavailabl e SETH, Jose F R Attending Unavailable DONNELL FINCH Attending Unavailable JEANIE ANNY Attending Unavailable JEANIE ANNY Attending Unavailable Unavailable Primary Care Provider Unavailabl e Allergies Allergy Classification Reported Allergen(s) Allergy Type Date of Onset Reaction(s) Facility (3 sources) Acetaminophen / oxyCODONE Drug Allergy 2 Nausea And Vomiting, Headache Proximal Data Phone: (3 sources) traMADol Drug Allergy 2 NAKUL Octonotco Phone: (1 source) No Known Medication Allergies; Translations: [No Known Medication Allergies] Propensity to adverse reactions (disorder) [facility] Medications Current Medications Medication Drug [...] Pain - Moderate, 30 tab(s), Refill(s) 0, [facility] Start Date: 01/22/17 Status: Ordered albuterol HFA [...] 150 mg by mouth daily. 0 Active aspirin 81 mg delayed release oral tablet (1 source) Platelet Aggregation Inhibitor, Nonsteroidal Anti-inflammatory Drug take 1 tablet by mouth in the morning aspirin 81 mg Take 1 tablet (81 mg total) by mouth in the morning. 0 Active bisacodyl 10 mg rectal suppository (1 source) Stimulant Laxative Start: 11-02-2019 take 10 mg rectal route once daily as needed for constipation 10 mg, Rectal, DAILY PRN, Constipation, Starting Sat11/02/19 at 1226, calcium chloride 0.0014 meq/ml / [...] BID, # 60 cap(s), Refills(s) 0, Pharmacy: [facility] Start Date: 01/22/17 Status: Ordered Ethinyl Estradiol [...] Refill(s) 5, Start 3 weeks after delivery, [facility] Start Date: 01/22/17 Status: [...] Mild, # 40 tab(s), Refills(s) 0, Pharmacy: [facility] Start Date: 01/22/17 Status: Ordered 1 ml ketorolac tromethamine 30 mg/ml cartridge (2 sources) Nonsteroidal Anti-inflammatory Drug, Cyclooxygenase Inhibitor Start: 02-29-2020 End: 03-02-2020 30 mg, Intravenous, EVERY 6 HOURS, First dose on Sat02/29/20 at 1245, For 8 doses Do not administer for more than 5 days. Post-op Start: 11-02-2019 End: 11-04-2019 30 mg, Intravenous, EVERY 6 HOURS, First dose on Sat11/02/19 at 1245, For 8 doses Do not [...] 11/24/2021 Active take 1 tablet by mario th twice daily methylphenidate (RITALIN) 10 MG tablet [...] sources) Polyene Antifungal Start: 10-28-2021 nystatin (MYCOSTATIN) 916917 UNIT/GM powder Apply topically 2 times daily [...] mL infusion (1 source) Start: 11-02-2019 1 deborah-units/ min (1 mL/hr), Intravenous, at 1 mL/hr, CONTINUOUS, Starting Sat11/02/19 at 1245 For Post Use Only Give 166ml (10 units) bolus, followed by 50ml/hr (3 units/hr). May stop if bleeding returns to normal. Give after delivery of placenta. Prenat w/o K-MfZoy-NXC-FA-DHA (PRENAISSANCE PLUS) 28-1-250 MG CAPS (4 sources) Start: 06-03-2019 take 1 tablet by mouth once daily Prenat w/o W-MhOyg-TJM-FA-DHA (PRENAISSANCE PLUS) 28-1-250 MG CAPS Take 1 tablet by mouth daily 30 capsule 11 06/03/2019 Suspended Start: 06-03-2019 take 1 tablet by mario th once daily Prenat w/o S-SoMqk-ZWX-FA-DHA (PRENAISSANCE PLUS) 28-1-250 MG CAPS Take 1 [...] Class(es) Dates Sig (Normalized) Sig (Original) SANDRA FARR 3 GM 1 each (1 source) Start: [...] tablet 3 04/09/2017 09/30/2018 Discontinued (LIST CLEANUP) [id number]-[id number] (PRENATE AM PO) (1 source) End: 09-30-2018 [id number]-[id number] (PRENATE AM PO) Take by mouth 0 09/30/2018 Discontinued (LIST CLEANUP) Multivitamins with Folic Acid 1 mg oral tablet (3 sources) Start: 07-26-2016 Multivitamins with Folic Acid 1 mg oral tablet 1 tab(s), Oral, Daily, 100 tab(s), Refill(s) 0, [facility] Start Date: 07/26/16 Status: Ordered 50 ml [...] Extremities Normal Diaphragm Normal ACI Normal Normal [facility] CHEMISTRYOrdered By: SYSTEM SYSTEM on 01-29-2023 Glucose [Mass/Vol] 157 mg/dL High 55 - 140 mg/dL Remisol Chem Consent for Treatmenton 01-11 Consent for Treatment [id number] .00TIFF [facility] Consent for Treatment [id number]#1 .00TIFF [facility] Gest Scr Glu 1 Hron 01-30-20 Glucose [Mass/Vol] 157 mg/dL High 55-140 [facility] Comment on above: Performed By: #### 2 [id number], [id number], 125421250, [id number], 620507398, 140088241, 1797368, 3000852, 9344565 #### [facility] [address] [place] [address] Glucose 1h post 50g loadon 1 04-01-2022 Glucose, 1 hr PP 50GM dose 157 [facility] Physician Orderon 01-29-2023 Physician Order [id number]# 1.00TIFF [facility] Physician Orderon 01-28-2023 Physician Order [id number]#1 .00TIFF [facility] C Urineon 01-13-2023 Bacteria identified Cx Nom [...] Locations R1: This test was performed at: [facility], [address] [place] [address], [address]- , , Normal [facility] Comment on above: Performed By: #### 2 [id number], 92799405, 357743143, 6862845655, 996894275, 193093932, 5556425, 6092369, 6355306 #### [facility] [address] [place] [address] .Interpretation:on HCV Ab IA Ql Comment Invalid Interpretation Code [facility] Comment on above: Result Comment: Not infected with HCV unless early or acute infection is suspected (which may be delayed in an immunocompromised individual), or other evidence exists to indicate HCV infection. Performed at: [facility] [id number] [place], [place] [id number] PhD Mariama Zaman Performed By: #### 2 [id number], 85229808, 396777764, 1371724583, 889901089, 401360178, 9614678, 2824875, 3975031 #### [facility] [address] [place] [address] HCV Antibody RFX to Quant PC Johnny 01-12-2023 HCV IgG IA Ql Non-Reactive Invalid Interpretation Code Non Reactive [facility] Comment on above: Result Comment: Perf ormed at: [address] [id number] PhD Mariama Zaman Performed By: #### 2 [id number], 81285668, 684565933, 8769938119, 616484125, 536857942, 5291758, 1168546, 9196886 #### [facility] [address] [place] [address] HIV Screen 4th Generation wR fxon 01-12-2023 HIV 1+2 Ab+HIV1 p24 Ag IA Ql Non-Reactive Invalid Interpretation Code Non Reactive [facility] Comment on above: Result Comment: HIV Negative HIV-1/HIV-2 antibodies and HIV-1 p24 antigen were NOT detected. There is no laboratory evidence of HIV infection. Performed at: [address] [id number] PhD Mariama Zaman Performed By: #### 2 [id number], 43417868, 452750809, 1334965846, 207257491, 088335991, 2906786, 9900200, 8169474 #### [facility] [address] [place] [address] Hep Bs Agon 01-12-2023 HBV surface Ag IA Ql Negative Invalid Interpretation Code Negative [facility] Comment on above: Result Comment: Perf ormed at: [address] [id number] PhD Mariama Zaman Performed By: #### 2 [id number], 16175260, 718261803, 8607897997, 432086444, 405982848, 6374653, 4020070, 1679748 #### [facility] [address] [place] [address] RPR with Conf Rfxon 01-13-20 23 Reagin Ab RPR Ql (S) Non-Reactive Invalid Interpretation Code Non Reactive [facility] Comment on above: Result Comment: Perf ormed at: [address] [id number] PhD Mariama Zaman Performed By: #### 2 [id number], 36090839, 687173304, 6570750753, 941203939, 996609016, 4640007, 3192675, 9549433 #### [facility] [address] [place] [address] Rubella IgGon 01-12-2023 Rubella virus IgG Qn (S) 5.68 [IU]/mL Invalid Interpretation Code Immune >0.99 [facility] Comment on above: Result Comment: Non- immune <0.90 Equivocal 0.90 - 0.99 Immune >0.99 Performed at: [address] [id number] PhD Mariama Zaman Performed By: #### 2 [id number], 60972308, 807856477, 3747389129, 426083791, 973122387, 0526662, 8592477, 8810793 #### [facility] [address] [place] [address] ABO/Rhon 01-11-2023 ABO/Rh Positive Invalid Interpretation Code [facility] Comment on above: Performed By: #### 2 [id number], 35527564, 946855490, 2693262718, 283569763, 696460895, 3450421, 4085507, 0864245 #### [facility] [address] [place] [address] ABSCon 01-11-2023 ABSC Gel Interp Negative Normal [facility] Comment on above: Performed By: #### 2 [id number], 21099598, 620506967, 4146243692, 604101054, 347096475, 5334504, 0072406, 1892187 #### [facility] [address] [place] [address] BLOOD BANKOrdered By: Dylan Lemons on 01-11-2023 ABO/Rh Interp Positive Invalid Interpretation Code [facility] [place] Subsection ABSC Gel Interp Negative (01/11/23 10:00 AM) Normal [facility] [place] Subsection CBC w/IndicesOrdered By: López Jorgensen on 01-11-2023 Erythrocyte distribution width (RBC) [Ratio] 13.4 % Normal 10.9-14.2 [facility] Comment on above: Performed By: #### 2 [id number], 47061739, 470668877, 3992151846, 377501014, 686734059, 0241749, 5966721, 9041768 #### [facility] [address] [place] [address] Hematocrit (Bld) [Volume fraction] 34.4 % [facility] Comment on above: Performed By: #### 2 [id number], 21521634, 204299288, 4296912296, 812981107, 876055717, 5199805, 3145123, 4949241 #### Julián [facility] [address] [place] [address] Hemoglobin (Bld) [Mass/Vol] 11.7 g/dL [facility] Comment on above: Performed By: #### 2 [id number], 40694516, 103025820, 4495918903, 573147286, 173420039, 0608958, 4716374, 2542774 #### [facility] [address] [place] [address] MCH (RBC) [Entitic mass] 31.7 pg Normal 27.0-34.0 [facility] [place] Comment on above: Performed By: #### 2 [id number], 75645224, 476726190, 3887324006, 748085276, 098060489, 3900355, 0309393, 3743033 #### [facility] [address] [place] [address] MCHC (RBC) [Mass/Vol] 33.9 g/dL Normal 31.4-36.0 [facility] Comment on above: Performed By: #### 2 024651598, 78462551, 091170173, 6155635484, 364522512, 929793865, 2280427, 3372408, 0017803 #### [facility] [address] [place] [address] MCV (RBC) [Entitic vol] 93.3 fL Normal 80.0-100.0 [facility] Comment on above: Performed By: #### 2 [id number], 56138106, 455270258, 5531096178, 446733119, 263423843, 4140613, 5333600, 3105385 #### [facility] [address] [place] [address] Platelet mean volume (Bld) [Entitic vol] 8.0 fL Normal 6.4-10.8 [facility] Comment on above: Performed By: #### 2 917343444, 58171762, 611207252, 3031628271, 718269568, 299809074, 2621400, 1557755, 1923313 #### [facility] [address] [place] [address] Platelets (Bld) [#/Vol] 171.0 E9/L Normal 150.0-500.0 [facility] Comment on above: Performed By: #### 2 018435181, 36335039, 352001396, 1796781076, 631999343, 052053301, 6937019, 5642381, 4045412 #### [facility] [address] [place] [address] RBC (Bld) [#/Vol] 3.7 E12/L Low 4.3-5.9 [facility] Comment on above: Performed By: #### 2 745376715, 34354340, 449192977, 2777767603, 074859526, 175115790, 3513063, 5642152, 7487015 #### [facility] [address] [place] [address] WBC corrected for nucl RBC Auto (Bld) [#/Vol] 11.7 E9/L High 4.0-11.0 [facility] Comment on above: Performed By: #### 2 [id number], 03269369, 579983645, 2287241803, 342956502, 022965659, 1048988, 5875490, 4021362 #### [facility] [address] [place] [address] CBC without diffon Platelets (Bld) [#/Vol] 171 10*3/uL [facility] Consent for Treatmenton Consent for Treatment [id number] .00TIFF Normal [facility] HIV 1&2 AB/AG Screen (P24 AG )on 01-11-2023 HIV 1&2 AB/AG Non-Reactive [facility] Hepatitis B surface antigeno n 01-11-2023 Hepatitis B Surface Antigen Negative [facility] Hepatitis C(HCV) Ab w/ Refle x to PCRon 01-11-2023 HCV Ab Ql (S) Non-Reactive [facility] [id number] By: Liliana Dumont on 01-11-2023 HbA1c (Bld) [Mass fraction] 4.9 % Normal <=5.9 [facility] Comment on above: Performed By: #### 2 [id number], 50219309, 559275872, 3016607404, 976467835, 250961264, 2302568, 9265015, 6520403 #### [facility] [address] [place] [address] No Panel Informationon 01-11 [facility] Physician Orderon 01-11-2023 Physician Order [id number] .00TIFF Normal [facility] Rubella IGG immune statuson 01-11-2023 Rubella immune IgG 5.68 [facility] Syphilis Total(Unknown Syphi lis Status)on 01-11-2023 Syphilis Non-Reactive [facility] TSHon 01-11-2023 Thyroid Stimulating (3Rd Generation) Hormone/ Tsh 1.30 [facility] TSHOrdered By: SYSTEM SYSTEM on 01-11-2023 TSH Qn 1.30 m[IU]/L Normal 0.34-5.60 [facility] Comment on above: Performed By: #### 2 [id number], 46329916, 993765537, 3717304714, 489009280, 341116896, 1903193, 0012970, 7603071 #### [facility] [address] [place] [address] Type and screenon 01-11-2023 Abo/Rh(D) Positive [employer] [facility] Basic Metabolic Panelon 06-2 Calcium [Mass/Vol] 9.1 mg/dL Normal 8.5-9.9 [facility] Comment on above: Performed By: #### C BCWD #### [facility] [address] [place] [address] Chloride [Moles/Vol] 105 mmol/L Normal 95-107 [facility] Comment on above: Performed By: #### C BCWD #### [facility] [address] [place] [address] CO2 [Moles/Vol] 22 mmol/L Normal 20-31 [facility] Comment on above: Performed By: #### C BCWD #### [facility] [address] [place] [address] Creatinine [Mass/Vol] 0.59 mg/dL Normal 0.50-0.90 [facility] Comment on above: Performed By: #### C BCWD #### [facility] [address] [place] [address] GFR >60.0 Normal >60 [facility] Comment on above: Result Comment: Christina [...] secretion. Performed By: #### C BCWD #### [facility] [address] [place] [address] Glucose [Mass/Vol] 110 mg/dL Critically high 70-99 M [facility] Comment on above: Performed By: #### C BCWD #### [facility] [address] [place] [address] Potassium [Moles/Vol] 4.0 mmol/L Normal 3.4-4.9 [facility] Comment on above: Performed By: #### C BCWD #### [facility] [address] [place] [address] Sodium [Moles/Vol] 139 mmol/L Normal 135-144 [facility] Comment on above: Performed By: #### C BCWD #### [facility] [address] [place] [address] Urea nitrogen [Mass/Vol] 12 mg/dL Normal 6-20 [facility] Comment on above: Performed By: #### C BCWD #### [facility] [address] [place] [address] Anion gap [Moles/Vol] 12 mmol/L Normal 9-15 [facility] Comment on above: Performed By: #### C BCWD #### [facility] [address] [place] [address] CBC With Platelet and Differ entialon 07-31-2022 Abs Imm Granulocytes 0.0 K/uL Normal [facility] Comment on above: Performed By: #### C BCWD #### [facility] [address] [place] [address] Basophils (Bld) [#/Vol] 0.0 10*3/uL Normal 0.0-0.1 [facility] Comment on above: Performed By: #### C BCWD #### [facility] [address] [place] [address] Basophils/100 WBC (Bld) 0.4 % Normal 0.1-1.2 [facility] Comment on above: Performed By: #### C BCWD #### [facility] [address] [place] [address] Eosinophils (Bld) [#/Vol] 0.2 10*3/uL Normal 0.0-0.4 [facility] Comment on above: Performed By: #### C BCWD #### [facility] [address] [place] [address] Eosinophils/100 WBC (Bld) 2.6 % Normal 0.7-5.8 [facility] Comment on above: Performed By: #### C BCWD #### [facility] [address] [place] [address] Erythrocyte distribution width (RBC) [Ratio] 12.6 % Normal 11.7-14.4 [facility] Comment on above: Performed By: #### C BCWD #### [facility] [address] [place] [address] Hematocrit (Bld) [Volume fraction] 39.6 % Normal 37.0-47.0 [facility] Comment on above: Performed By: #### C BCWD #### [facility] [address] [place] [address] Hemoglobin (Bld) [Mass/Vol] 13.5 g/dL Normal 11.2-15.7 [facility] Comment on above: Performed By: #### C BCWD #### [facility] [address] [place] [address] Imm Granulocytes 0.3 % Normal [facility] Comment on above: Performed By: #### C BCWD #### [facility] [address] [place] [address] Lymphocytes (Bld) [#/Vol] 1.8 10*3/uL Normal 1.2-3.7 [facility] Comment on above: Performed By: #### C BCWD #### [facility] [address] [place] [address] Lymphocytes/100 WBC (Bld) 25.0 % Normal [facility] Comment on above: Performed By: #### C BCWD #### [facility] [address] [place] [address] MCH (RBC) [Entitic mass] 31.9 pg Normal 25.6-32.2 [facility] Comment on above: Performed By: #### C BCWD #### [facility] [address] [place] [address] MCHC 34.1 % Normal 32.2-35.5 [facility] Comment on above: Performed By: #### C BCWD #### [facility] [address] [place] [address] MCV (RBC) [Entitic vol] 93.6 fL Normal 79.4-94.8 [facility] Comment on above: Performed By: #### C BCWD #### [facility] [address] [place] [address] Monocytes (Bld) [#/Vol] 0.4 10*3/uL Normal 0.2-0.9 [facility] Comment on above: Performed By: #### C BCWD #### [facility] [address] [place] [address] Monocytes/100 WBC (Bld) 5.7 % Normal 4.7-12.5 [facility] Comment on above: Performed By: #### C BCWD #### [facility] [address] [place] [address] Neutrophils (Bld) [#/Vol] 4.9 10*3/uL Normal 1.6-6.1 [facility] Comment on above: Performed By: #### C BCWD #### [facility] [address] [place] [address] Neutrophils/100 WBC (Bld) 66.0 % Normal 34.0-71.1 [facility] Comment on above: Performed By: #### C BCWD #### [facility] [address] [place] [address] Platelets (Bld) [#/Vol] 193 10*3/uL Normal 182-369 [facility] Comment on above: Performed By: #### C BCWD #### [facility] [address] [place] [address] RBC (Bld) [#/Vol] 4.23 10*6/uL Normal 3.93-5.22 [facility] Comment on above: Performed By: #### C BCWD #### [facility] [address] [place] [address] WBC (Bld) [#/Vol] 7.4 10*3/uL Normal 4.0-10.0 [facility] Comment on above: Performed By: #### C BCWD #### [facility] [address] [place] [address] UR HCG Qualitativeon 023 Beta HCG ( test) Ql (U) Negative Normal Detects HC [facility] Comment on above: Performed By: #### C BCWD #### [facility] [address] [place] [address] Urinalysis, reflex to cultur minoo 07-31-2022 Urine Reflexed to Culture Not Indicated Normal [facility] Comment on above: Performed By: #### U AR #### [facility] [address] [place] [address] Bilirubin Ql (U) Negative Normal Negative [facility] Comment on above: Performed By: #### U AR #### [facility] [address] [place] [address] Clarity (U) Clear Normal Clear [facility] Comment on above: Performed By: #### U AR #### [facility] [address] [place] [address] Color (U) Yellow Normal Straw/Nuckolls [facility] Comment on above: Performed By: #### U AR #### [facility] [address] [place] [address] Glucose Ql (U) Negative Normal Negative [facility] Comment on above: Performed By: #### U AR #### [facility] [address] [place] [address] Hemoglobin Ql (U) Large Normal Negative [facility] Comment on above: Performed By: #### U AR #### [facility] [address] [place] [address] Ketones Ql (U) Negative Normal Negative [facility] Comment on above: Performed By: #### U AR #### [facility] [address] [place] [address] Leukocyte esterase Test strip Ql (U) Negative Normal Negative [facility] Comment on above: Performed By: #### U AR #### [facility] [address] [place] [address] Nitrite Ql (U) Negative Normal Negative [facility] Comment on above: Performed By: #### U AR #### [facility] [address] [place] [address] pH (U) 5.5 [pH] Normal 5.0-9.0 [facility] Comment on above: Performed By: #### U AR #### [facility] [address] [place] [address] Protein Ql (U) Negative Normal Negative [facility] Comment on above: Performed By: #### U AR #### [facility] [address] [place] [address] Specific gravity (U) [Rel density] 1.015 Normal 1.005-1.03 [facility] Comment on above: Performed By: #### U AR #### [facility] [address] [place] [address] Urobilinogen Qn (U) 0.2 {Ginger'U}/dL Normal < 2.0 [facility] Comment on above: Performed By: #### U AR #### [facility] [address] [place] [address] Urine Microscopicon 08-01-19 23 Epithelial cells LM Ql (Urine sed) 3-5 Normal [facility] Comment on above: Performed By: #### U KAREEM #### [facility] [address] [place] [address] Urine Bacteria FEW Abnormal Negative [facility] Comment on above: Performed By: #### U KAREEM #### [facility] [address] [place] [address] Urine RBC 5-10 Abnormal 0-2 [facility] Comment on above: Performed By: #### U KAREEM #### [facility] [address] [place] [address] Urine WBC 0-2 Normal 0-5 [facility] Comment on above: Performed By: #### U KAREEM #### [facility] [address] [place] [address] Culture, Throaton 04-11-2022 Culture, Throat ORDER#: [id number] ORDERED BY: LILIANA CARROLL SOURCE: Throat Throat COLLECTED: 04/11/22 17:53 ANTIBIOTICS AT [facility].: RECEIVED : 04/11/22 21:00 Culture, Throat FINAL 04/14/22 10:27 Cult,Throat: Oral to, negative for Group A Strep and other beta Cult,Throat: hemolytic streptococci [place] [address] Normal [facility] Comment on above: Performed By: #### C BCWD #### [facility] [address] [place] [address] XR SHOULDER LEFT (MIN 2 VIEW S)on [...] Vitor Riojas MD 11/29/21 Final result Normal [facility] Bacterial susceptibility hager el by [facility]2021 Bacterial susceptibility panel KAREEM (Isol) ORDER#: [id number] ORDERED BY: SPRING OROZCO SOURCE: Incision COLLECTED: 10/28/21 16:45 ANTIBIOTICS AT [place].: RECEIVED : 10/28/21 22:09 Culture, Wound Aerobic, Anaerobic FINAL 11/03/21 07:50 Direct Exam: NO NEUTROPHILS SEEN Direct Exam: NO BACTERIA SEEN Cult,Aerobe/Anaerobe: Mixed skin to Cult,Aerobe/Anaerobe: No anaerobic organisms isolated at 5 days. Performed at [address] [place] [address] ([phone] Acinetobacter species LIGHT GROWTH Acinetobacter baumannii LIGHT GROWTH Acineto sp. A. baumannii ANTIBIOTICS KAREEM Interp KAREEM Interp Ampicillin/Sulbactam <=2 S >=32 R Ceftriaxone 16 I 16 I Ciprofloxacin <=0.25 S <=0.25 S Gentamicin <=1 S <=1 S Tobramycin <=1 S <=1 S S=SUSCEPTIBLE I=INTERMEDIATE R=RESISTANT Normal [facility] Comment on above: Performed By: #### 5 [id number] #### [facility] [address] [place] [address] Bacterial susceptibility panel KAREEM (Isol) ORDER#: [id number] ORDERED BY: SPRING OROZCO SOURCE: Incision COLLECTED: 10/28/21 16:45 ANTIBIOTICS AT [place].: RECEIVED : 10/28/21 22:09 Culture, Wound Aerobic, Anaerobic PRELIM 11/03/21 07:15 Direct Exam: NO NEUTROPHILS SEEN Direct Exam: NO BACTERIA SEEN Cult,Aerobe/Anaerobe: Mixed skin to Cult,Aerobe/Anaerobe: No anaerobic organisms isolated at 5 days. Performed at [address] [address] ([phone] Acinetobacter species LIGHT GROWTH Acineto sp. ANTIBIOTICS KAREEM Interp Ampicillin/Sulbactam <=2 S Ceftriaxone 16 I Ciprofloxacin <=0.25 S Gentamicin <=1 S Tobramycin <=1 S S=SUSCEPTIBLE I=INTERMEDIATE R=RESISTANT Normal [facility] Comment on above: Performed By: #### C BCWD #### [facility] [address] [place] [address] CBC With Platelet and Differ entialon 10-28-2021 Abs Imm Granulocytes 0.0 K/uL Normal [facility] Comment on above: Performed By: #### C BCWD #### [facility] [address] [place] [address] Basophils (Bld) [#/Vol] 0.0 10*3/uL Normal 0.0-0.1 [facility] Comment on above: Performed By: #### C BCWD #### [facility] [address] [place] [address] Basophils/100 WBC (Bld) 0.1 % Normal 0.1-1.2 [facility] Comment on above: Performed By: #### C BCWD #### [facility] [address] [place] [address] Eosinophils (Bld) [#/Vol] 0.3 10*3/uL Normal 0.0-0.4 [facility] Comment on above: Performed By: #### C BCWD #### [facility] [address] [place] [address] Eosinophils/100 WBC (Bld) 3.1 % Normal 0.7-5.8 [facility] Comment on above: Performed By: #### C BCWD #### [facility] [address] [place] [address] Erythrocyte distribution width (RBC) [Ratio] 12.8 % Normal 11.7-14.4 [facility] Comment on above: Performed By: #### C BCWD #### [facility] [address] [place] [address] Hematocrit (Bld) [Volume fraction] 40.9 % Normal 37.0-47.0 [facility] Comment on above: Performed By: #### C BCWD #### [facility] [address] [place] [address] Hemoglobin (Bld) [Mass/Vol] 13.6 g/dL Normal 11.2-15.7 [facility] Comment on above: Performed By: #### C BCWD #### [facility] [address] [place] [address] Imm Granulocytes 0.2 % Normal [facility] Comment on above: Performed By: #### C BCWD #### [facility] [address] [place] [address] Lymphocytes (Bld) [#/Vol] 1.8 10*3/uL Normal 1.2-3.7 [facility] Comment on above: Performed By: #### C BCWD #### [facility] [address] [place] [address] Lymphocytes/100 WBC (Bld) 16.5 % Normal [facility] Comment on above: Performed By: #### C BCWD #### [facility] [address] [place] [address] MCH (RBC) [Entitic mass] 31.1 pg Normal 25.6-32.2 [facility] Comment on above: Performed By: #### C BCWD #### [facility] [address] [place] [address] MCHC 33.3 % Normal 32.2-35.5 [facility] Comment on above: Performed By: #### C BCWD #### [facility] [address] [place] [address] MCV (RBC) [Entitic vol] 93.4 fL Normal 79.4-94.8 [facility] Comment on above: Performed By: #### C BCWD #### [facility] [address] [place] [address] Monocytes (Bld) [#/Vol] 0.6 10*3/uL Normal 0.2-0.9 [facility] Comment on above: Performed By: #### C BCWD #### [facility] [address] [place] [address] Monocytes/100 WBC (Bld) 5.2 % Normal 4.7-12.5 [facility] Comment on above: Performed By: #### C BCWD #### [facility] [address] [place] [address] Neutrophils (Bld) [#/Vol] 7.9 10*3/uL Critically high 1.6-6.1 [facility] Comment on above: Performed By: #### C BCWD #### [facility] [address] [place] [address] Neutrophils/100 WBC (Bld) 74.9 % Critically high 34.0-71.1 [facility] Comment on above: Performed By: #### C BCWD #### [facility] [address] [place] [address] Platelets (Bld) [#/Vol] 192 10*3/uL Normal 182-369 [facility] Comment on above: Performed By: #### C BCWD #### [facility] [address] [place] [address] RBC (Bld) [#/Vol] 4.38 10*6/uL Normal 3.93-5.22 [facility] Comment on above: Performed By: #### C BCWD #### [facility] [address] [place] [address] WBC (Bld) [#/Vol] 10.6 10*3/uL Critically high 4.0-10.0 [facility] Comment on above: Performed By: #### C BCWD #### [facility] [address] [place] [address] CBC with Auto Differentialon 10-28-2021 Basophils (Bld) [#/Vol] 0.0 10*3/uL 0 - 0.1 K/uL [facility] Basophils/100 WBC (Bld) 0.1 % 0.1 - 1.2 % [facility] Eosinophils (Bld) [#/Vol] 0.3 10*3/uL 0 - 0.4 K/uL [facility] Eosinophils/100 WBC (Bld) 3.1 % 0.7 - 5.8 % [facility] Hematocrit (Bld) [Volume fraction] 40.9 % 37 - 47 % [facility] Hemoglobin (Bld) [Mass/Vol] 13.6 g/dL 11.2 - 15.7 g/dL [facility] Immature granulocytes (Bld) [#/Vol] 0.0 10*3/uL [facility] Immature granulocytes/100 WBC (Bld) 0.2 % [facility] Interpretation and review of laboratory results Abnormal [facility] Lymphocytes (Bld) [#/Vol] 1.8 10*3/uL 1.2 - 3.7 K/uL [facility] Lymphocytes/100 WBC (Bld) 16.5 % [facility] MCH (RBC) [Entitic mass] 31.1 pg 25.6 - 32.2 pg [facility] MCHC (RBC) [Mass/Vol] 33.3 % 32.2 - 35.5 % [facility] MCV (RBC) [Entitic vol] 93.4 fL 79.4 - 94.8 fL [facility] Monocytes (Bld) [#/Vol] 0.6 10*3/uL 0.2 - 0.9 K/uL [facility] Monocytes/100 WBC (Bld) 5.2 % 4.7 - 12.5 % [facility] Neutrophils Absolute 7.9 K/uL High 1.6 - 6 .1 K/uL [facility] Neutrophils/100 WBC (Bld) 74.9 % High 34 - 71.1 % [facility] Platelet distribution width (Bld) [Ratio] 12.8 % 11.7 - 14.4 % [facility] Platelets (Bld) [#/Vol] 192 10*3/uL 182 - 369 K/uL [facility] RBC (Bld) [#/Vol] 4.38 10*6/uL [facility] WBC (Bld) [#/Vol] 10.6 10*3/uL High 4 - 10 K/uL [facility] CT ABDOMEN PELVIS W IV CONTR Luc [...] Melodie Ocampo MD 10/28/21 Final result Normal [facility] CT ABDOMEN PELVIS W IV CONTR AST Additional Contrast? Noneon 10-28-2021 No acute abdominopelvic abnormality. [facility] RADIOLOGY EXAMINATION: CT OF THE ABDOMEN AND [...] stranding or fluid at the surgical site. [facility] RADIOLOGY Melodie Ocampo MD - 10/28/2021 EXAMINATION: [...] surgical site. IMPRESSION: No acute abdominopelvic abnormality. [facility] Phone: Radiology Study observation (narrative) [facility] [employer] Phone: CT ABDOMEN PELVIS W IV CONTR AST Additional Contrast? NoneOrdered By: Melodie Ocampo on 10-28-2021 [facility] Phone: Comprehensive Metabolic Pane l reflex Mgon 10-28-2021 Albumin [Mass/Vol] 4.4 g/dL Normal 3.5-4.6 [facility] Comment on above: Performed By: #### C MPX #### [facility] [address] [place] [address] ALP [Catalytic activity/Vol] 118 U/L Normal 40-130 [facility] Comment on above: Performed By: #### C MPX #### [facility] [address] [place] [address] ALT [Catalytic activity/Vol] 6 U/L Normal 0-33 [facility] Comment on above: Performed By: #### C MPX #### [facility] [address] [place] [address] Anion gap [Moles/Vol] 11 mmol/L Normal 9-15 [facility] Comment on above: Performed By: #### C MPX #### [facility] [address] [place] [address] AST [Catalytic activity/Vol] 8 U/L Normal 0-35 [facility] Comment on above: Performed By: #### C MPX #### [facility] [address] [place] [address] Bilirubin [Mass/Vol] 0.4 mg/dL Normal 0.2-0.7 [facility] Comment on above: Performed By: #### C MPX #### [facility] [address] [place] [address] Calcium [Mass/Vol] 9.7 mg/dL Normal 8.5-9.9 [facility] Comment on above: Performed By: #### C MPX #### [facility] [address] [place] [address] Chloride [Moles/Vol] 104 mmol/L Normal 95-107 [facility] Comment on above: Performed By: #### C MPX #### [facility] [address] [place] [address] CO2 [Moles/Vol] 23 mmol/L Normal 20-31 [facility] Comment on above: Performed By: #### C MPX #### [facility] [address] [place] [address] Creatinine [Mass/Vol] 0.60 mg/dL Normal 0.50-0.90 [facility] Comment on above: Performed By: #### C MPX #### [facility] [address] [place] [address] GFR >60.0 Normal >60 [facility] Comment on above: Result Comment: >60 mL/min/1.73m2 EGFR, calc. for ages 18 and older using the MDRD formula (not corrected for weight), is valid for stable renal function. Performed By: #### C MPX #### [facility] [address] [place] [address] GFR/1.73 sq M.predicted among blacks MDRD (S/P/Bld) [Vol rate/Area] mL/min/{1.73_m2} Normal >60 [facility] Comment on above: Result Comment: >60 mL/min/1.73m2 EGFR, calc. for ages 18 and older using the MDRD formula (not corrected for weight), is valid for stable renal function. Performed By: #### C MPX #### [facility] [address] [place] [address] Globulin (S) [Mass/Vol] 3.1 g/dL Normal 2.3-3.5 [facility] Comment on above: Performed By: #### C MPX #### [facility] [address] [place] [address] Glucose [Mass/Vol] 95 mg/dL Normal 70-99 [facility] Comment on above: Performed By: #### C MPX #### [facility] [address] [place] [address] Magnesium [Moles/Vol] 4.2 mmol/L Normal 3.4-4.9 [facility] Comment on above: Performed By: #### C MPX #### [facility] [address] [place] [address] Protein [Mass/Vol] 7.5 g/dL Normal 6.3-8.0 [facility] Comment on above: Performed By: #### C MPX #### [facility] [address] [place] [address] Sodium [Moles/Vol] 138 mmol/L Normal 135-144 [facility] Comment on above: Performed By: #### C MPX #### [facility] [address] [place] [address] Urea nitrogen [Mass/Vol] 14 mg/dL Normal 6-20 [facility] Comment on above: Performed By: #### C MPX #### [facility] [address] [place] [address] Comprehensive Metabolic Pane l w/ Reflex to MGon 10-28-2021 Albumin [Mass/Vol] 4.4 g/dL 3.5 - 4.6 g/dL [facility] ALP (Bld) [Catalytic activity/Vol] 118 U/L 40 - 130 U/L [facility] ALT [Catalytic activity/Vol] 6 U/L 0 - 33 U/L [facility] Anion gap [Moles/Vol] 11 mmol/L [facility] AST [Catalytic activity/Vol] 8 U/L 0 - 35 U/L [facility] Bilirubin [Mass/Vol] 0.4 mg/dL 0.2 - 0 .7 mg/dL [facility] Calcium [Mass/Vol] 9.7 mg/dL 8.5 - 9.9 mg/dL [facility] Chloride [Moles/Vol] 104 mmol/L [facility] CO2 [Moles/Vol] 23 mmol/L [facility] Creatinine [Mass/Vol] 0.6 mg/dL 0.5 - 0.9 mg/dL [facility] Free PSA/Total PSA [Mass fraction] 7.5 g/dL 6.3 - 8 g/dL [facility] GFR >60.0 60 - PINF [facility] Comment on above: >60 mL/min/1.73m2 EG FR, calc. for ages 18 and older using the MDRD formula (not corrected for weight), is valid for stable renal function. GFR Non- >60.0 60 - [facility]F [facility] Comment on above: >60 mL/min/1.73m2 EG FR, calc. for ages 18 and older using the MDRD formula (not corrected for weight), is valid for stable renal function. Globulin (S) [Mass/Vol] 3.1 g/dL 2.3 - 3.5 g/dL [facility] Glucose [Mass/Vol] 95 mg/dL 70 - 99 mg/dL [facility] Potassium reflex Magnesium 4.2 [facility] Sodium [Moles/Vol] 138 mmol/L [facility] Urea nitrogen (BldV) [Mass/Vol] 14 mg/dL 6 - 20 mg/dL [facility] Culture, Wound AerobicShen 10-28-2021 Culture, Wound Aerobic, Anaerobic ORDER#: [id number] ORDERED BY: SPRING OROZCO SOURCE: Incision COLLECTED: 10/28/21 16:45 ANTIBIOTICS AT [place].: RECEIVED : 10/28/21 22:09 Culture, Wound Aerobic, Anaerobic PRELIM 11/01/21 08:12 Direct Exam: NO NEUTROPHILS SEEN Direct Exam: NO BACTERIA SEEN Cult,Aerobe/Anaerobe: GRAM NEGATIVE RODS Cult,Aerobe/Anaerobe: LIGHT GROWTH Cult,Aerobe/Anaerobe: Mixed skin to Cult,Aerobe/Anaerobe: No anaerobic organisms isolated at 3 days. Performed at [id number] [place] [address] ([phone] Normal [facility] Comment on above: Performed By: #### I CWAN #### [facility] [address] [place] [address] , Urineon 2 Beta HCG ( test) Ql (U) Negative Detects HCG level >20 MIU/mL [facility] UR HCG Qualitativeon 022 Beta HCG ( test) Ql (U) Negative Normal Detects HC [facility] Comment on above: Performed By: #### C BCWD #### [facility] [address] [place] [address] Urinalysis with Reflex to Cu ltureon 10-28-2021 Bilirubin Urine Negative Negative [facility] Blood, Urine Negative Negative [facility] Clarity, UA Clear Clear [facility] Color, UA Yellow Straw/Yellow [facility] Glucose, Ur Negative Negative mg/dL [facility] Ketones Ql (U) Negative Negative mg/dL [facility] Leukocyte esterase Test strip Ql (U) Negative Negative [facility] Nitrite, Urine Negative Negative [facility] pH, UA 5.5 5 - 9 [facility] Protein, UA Negative Negative mg/dL [facility] Specific [place], UA 1.015 1.005 - 1.03 [facility] Urine Reflex to Culture Not Indicated [facility] Urobilinogen, Urine 0.2 NINF [facility] Urinalysis, reflex to cultur minoo 10-28-2021 Bilirubin Ql (U) Negative Normal Negative [facility] Comment on above: Performed By: #### U AR #### [facility] [address] [place] [address] Clarity (U) Clear Normal Clear [facility] Comment on above: Performed By: #### U AR #### [facility] [address] [place] [address] Color (U) Yellow Normal Straw/Nuckolls [facility] Comment on above: Performed By: #### U AR #### [facility] [address] [place] [address] Glucose Ql (U) Negative Normal Negative [facility] Comment on above: Performed By: #### U AR #### [facility] [address] [place] [address] Hemoglobin Ql (U) Negative Normal Negative [facility] Comment on above: Performed By: #### U AR #### [facility] [address] [place] [address] Ketones Ql (U) Negative Normal Negative [facility] Comment on above: Performed By: #### U AR #### [facility] [address] [place] [address] Leukocyte esterase Test strip Ql (U) Negative Normal Negative [facility] Comment on above: Performed By: #### U AR #### [facility] [address] [place] [address] Nitrite Ql (U) Negative Normal Negative [facility] Comment on above: Performed By: #### U AR #### [facility] [address] [place] [address] pH (U) 5.5 [pH] Normal 5.0-9.0 [facility] Comment on above: Performed By: #### U AR #### [facility] [address] [place] [address] Protein Ql (U) Negative Normal Negative [facility] Comment on above: Performed By: #### U AR #### [facility] [address] [place] [address] Specific gravity (U) [Rel density] 1.015 Normal 1.005-1.03 [facility] Comment on above: Performed By: #### U AR #### [facility] [address] [place] [address] Urine Reflexed to Culture Not Indicated Normal [facility] Comment on above: Performed By: #### U AR #### [facility] [address] [place] [address] Urobilinogen Qn (U) 0.2 {Ginger'U}/dL Normal < 2.0 [facility] Comment on above: Performed By: #### U AR #### [facility] [address] [place] [address] Allergen, Food, Comprehensiv e Profile 08-31-2021 Allergen, Food, Barley IgE <0.10 Normal [facility] Allergen, Food, Beef IgE <0.10 [facility] Allergen, Food, Cabbage <0.10 [facility] Allergen, Food, Carrot <0.10 [facility] Allergen, Food, Chicken <0.10 [facility] Allergen, Food, Codfish IgE <0.10 [facility] Allergen, Food, [place] IgE <0.10 [facility] Allergen, Food, Crab IgE <0.10 [facility] Allergen, Food, Egg White <0.10 Normal [facility] Allergen, Food, Grape IgE <0.10 [facility] Allergen, Food, Lettuce IgE <0.10 [facility] Allergen, Food, Milk (Cow) IgE <0.10 [facility] Allergen, Food, [place] <0.10 [facility] Allergen, Food, Oat IgE <0.10 [facility] Allergen, Food, [place] IgE <0.10 [facility] Allergen, Food, Peanut IgE <0.10 [facility] Allergen, Food, Pepper C. annuum IgE <0.10 [facility] Allergen, Food, Pork IgE <0.10 [facility] Comment on above: Result Comment: [employer] [address] [place] [address] ([phone] Allergen, Food, Potato <0.10 Normal [facility] Allergen, Food, Rice IgE <0.10 [facility] Allergen, Food, [place] IgE <0.10 Normal [facility] Allergen, Food, Shrimp IgE <0.10 Normal [facility] Allergen, Food, Soybean IgE <0.10 Normal [facility] Allergen, Food, Tomato IgE <0.10 Normal [facility] Allergen, Food, Tuna IgE <0.10 Normal [facility] Allergen, Food, Wheat IgE <0.10 Normal [facility] Comment on above: Result Comment: ALLERGEN, INTERP, [...] even anaphylaxis. Immunoglobulin E 53 IU/mL Normal [facility] Comment on above: Result Comment: [facility] [address] [place], [place] [id number] ([phone] CBC With Platelet and Differ entialon 08-21-2021 Abs Imm Granulocytes 0.0 K/uL Normal [facility] Comment on above: Performed By: #### C BCWD #### [facility] [address] [place] [address] Basophils (Bld) [#/Vol] 0.0 10*3/uL Normal 0.0-0.1 [facility] Comment on above: Performed By: #### C BCWD #### [facility] [address] [place] [address] Basophils/100 WBC (Bld) 0.3 % Normal 0.1-1.2 [facility] Comment on above: Performed By: #### C BCWD #### [facility] [address] [place] [address] Eosinophils (Bld) [#/Vol] 0.2 10*3/uL Normal 0.0-0.4 [facility] Comment on above: Performed By: #### C BCWD #### [facility] [address] [place] [address] Eosinophils/100 WBC (Bld) 2.4 % Normal 0.7-5.8 [facility] Comment on above: Performed By: #### C BCWD #### [facility] [address] [place] [address] Erythrocyte distribution width (RBC) [Ratio] 12.6 % Normal 11.7-14.4 [facility] Comment on above: Performed By: #### C BCWD #### [facility] [address] [place] [address] Hematocrit (Bld) [Volume fraction] 41.7 % Normal 37.0-47.0 [facility] Comment on above: Performed By: #### C BCWD #### [facility] [address] [place] [address] Hemoglobin (Bld) [Mass/Vol] 13.6 g/dL Normal 11.2-15.7 [facility] Comment on above: Performed By: #### C BCWD #### [facility] [address] [place] [address] Imm Granulocytes 0.3 % Normal [facility] Comment on above: Performed By: #### C BCWD #### [facility] [address] [place] [address] Lymphocytes (Bld) [#/Vol] 2.2 10*3/uL Normal 1.2-3.7 [facility] Comment on above: Performed By: #### C BCWD #### [facility] [address] [place] [address] Lymphocytes/100 WBC (Bld) 25.3 % Normal [facility] Comment on above: Performed By: #### C BCWD #### [facility] [address] [place] [address] MCH (RBC) [Entitic mass] 30.8 pg Normal 25.6-32.2 [facility] Comment on above: Performed By: #### C BCWD #### [facility] [address] [place] [address] MCHC 32.6 % Normal 32.2-35.5 [facility] Comment on above: Performed By: #### C BCWD #### [facility] [address] [place] [address] MCV (RBC) [Entitic vol] 94.6 fL Normal 79.4-94.8 [facility] Comment on above: Performed By: #### C BCWD #### [facility] [address] [place] [address] Monocytes (Bld) [#/Vol] 0.4 10*3/uL Normal 0.2-0.9 [facility] Comment on above: Performed By: #### C BCWD #### [facility] [address] [place] [address] Monocytes/100 WBC (Bld) 4.4 % Low 4.7-12.5 [facility] Comment on above: Performed By: #### C BCWD #### [facility] [address] [place] [address] Neutrophils (Bld) [#/Vol] 5.8 10*3/uL Normal 1.6-6.1 [facility] Comment on above: Performed By: #### C BCWD #### [facility] [address] [place] [address] Neutrophils/100 WBC (Bld) 67.3 % Normal 34.0-71.1 [facility] Comment on above: Performed By: #### C BCWD #### [facility] [address] [place] [address] Platelets (Bld) [#/Vol] 200 10*3/uL Normal 182-369 [facility] Comment on above: Performed By: #### C BCWD #### [facility] [address] [place] [address] RBC (Bld) [#/Vol] 4.41 10*6/uL Normal 3.93-5.22 [facility] Comment on above: Performed By: #### C BCWD #### [facility] [address] [place] [address] WBC (Bld) [#/Vol] 8.6 10*3/uL Normal 4.0-10.0 [facility] Comment on above: Performed By: #### C BCWD #### [facility] [address] [place] [id number] CBC with Auto Differentialon 08-21-2021 Basophils (Bld) [#/Vol] 0.0 10*3/uL 0.0 - 0.1 K/uL [facility] Basophils/100 WBC (Bld) 0.3 % 0.1 - 1.2 % [facility] Eosinophils (Bld) [#/Vol] 0.2 10*3/uL 0.0 - 0.4 K/uL [facility] Eosinophils/100 WBC (Bld) 2.4 % 0.7 - 5.8 % [facility] Hematocrit (Bld) [Volume fraction] 41.7 % 37.0 - 47.0 % [facility] Hemoglobin (Bld) [Mass/Vol] 13.6 g/dL 11.2 - 15.7 g/dL [facility] Immature granulocytes (Bld) [#/Vol] 0.0 10*3/uL [facility] Immature granulocytes/100 WBC (Bld) 0.3 % [facility] Interpretation and review of laboratory results Abnormal [facility] Lymphocytes (Bld) [#/Vol] 2.2 10*3/uL 1.2 - 3.7 K/uL [facility] Lymphocytes/100 WBC (Bld) 25.3 % [facility] MCH (RBC) [Entitic mass] 30.8 pg 25.6 - 32.2 pg [facility] MCHC (RBC) [Mass/Vol] 32.6 % 32.2 - 35.5 % [facility] MCV (RBC) [Entitic vol] 94.6 fL 79.4 - 94.8 fL [facility] Monocytes (Bld) [#/Vol] 0.4 10*3/uL 0.2 - 0.9 K/uL [facility] Monocytes/100 WBC (Bld) 4.4 % Low 4.7 - 12.5 % [facility] Neutrophils Absolute 5.8 K/uL 1.6 - 6 .1 K/uL [facility] Neutrophils/100 WBC (Bld) 67.3 % 34.0 - 71.1 % [facility] Platelet distribution width (Bld) [Ratio] 12.6 % 11.7 - 14.4 % [facility] Platelets (Bld) [#/Vol] 200 10*3/uL 182 - 369 K/uL [facility] RBC (Bld) [#/Vol] 4.41 10*6/uL [facility] WBC (Bld) [#/Vol] 8.6 10*3/uL 4.0 - 10.0 K/uL [facility] COVID-19on 08-21-2021 SARS-CoV-2 (COVID-19) RNA JOSIE+probe Ql (Unsp spec) Not detected Normal Not Detect [facility] Comment on above: Result Comment: Brittani sanz NAAT: Negative results should be treated as [...] authorized laboratories. Fact sheet for Healthcare Providers: https://www.fda.gov/media/524086/download Fact sheet for Patients: https://www.fda.gov/media/880272/download METHODOLOGY: Isothermal Nucleic Acid Amplification Performed By: #### C TAVON #### [facility] [address] [place] [address] COVID-19, Rapidon 08-21-2021 SARS-CoV-2 (COVID-19) RNA JOSIE+probe Ql (Unsp spec) Not detected Not Detected [facility] Comment on above: Rapid NAAT: Negative results [...] authorized laboratories. Fact sheet for Healthcare Providers: https://www.fda.gov/media/263840/download Fact sheet for Patients: https://www.fda.gov/media/841472/download METHODOLOGY: Isothermal Nucleic Acid Amplification [facility] CT ABDOMEN PELVIS W IV CONTR Luc [...] Some of this report was completed using [employer] voice-recognition technology and may include unintended errors [...] Mckay Solis MD 08/21/21 Final result Normal [facility] Comprehensive Metabolic Pane l reflex Mgon 08-21-2021 Albumin [Mass/Vol] 4.3 g/dL Normal 3.5-4.6 [facility] Comment on above: Performed By: #### C BCWD #### [facility] [address] [place] [address] ALP [Catalytic activity/Vol] 116 U/L Normal 40-130 [facility] Comment on above: Performed By: #### C BCWD #### [facility] [address] [place] [address] ALT [Catalytic activity/Vol] 8 U/L Normal 0-33 [facility] Comment on above: Performed By: #### C BCWD #### [facility] [address] [place] [address] Anion gap [Moles/Vol] 13 mmol/L Normal 9-15 [facility] Comment on above: Performed By: #### C BCWD #### [facility] [address] [place] [address] AST [Catalytic activity/Vol] 10 U/L Normal 0-35 [facility] Comment on above: Performed By: #### C BCWD #### [facility] [address] [place] [address] Bilirubin [Mass/Vol] mg/dL Normal 0.2-0.7 [facility] Comment on above: Performed By: #### C BCWD #### [facility] [address] [place] [address] Calcium [Mass/Vol] 9.3 mg/dL Normal 8.5-9.9 [facility] Comment on above: Performed By: #### C BCWD #### [facility] [address] [place] [address] Chloride [Moles/Vol] 105 mmol/L Normal 95-107 [facility] Comment on above: Performed By: #### C BCWD #### [facility] [address] [place] [address] CO2 [Moles/Vol] 22 mmol/L Normal 20-31 [facility] Comment on above: Performed By: #### C BCWD #### [facility] [address] [place] [address] Creatinine [Mass/Vol] 0.48 mg/dL Low 0.50-0.90 [facility] Comment on above: Performed By: #### C BCWD #### [facility] [address] [place] [address] GFR >60.0 Normal >60 [facility] Comment on above: Result Comment: >60 mL/min/1.73m2 EGFR, calc. for ages 18 and older using the MDRD formula (not corrected for weight), is valid for stable renal function. Performed By: #### C BCWD #### [facility] [address] [place] [address] GFR/1.73 sq M.predicted among blacks MDRD (S/P/Bld) [Vol rate/Area] mL/min/{1.73_m2} Normal >60 [facility] Comment on above: Result Comment: >60 mL/min/1.73m2 EGFR, calc. for ages 18 and older using the MDRD formula (not corrected for weight), is valid for stable renal function. Performed By: #### C BCWD #### [facility] [address] [place] [address] Globulin (S) [Mass/Vol] 2.5 g/dL Normal 2.3-3.5 [facility] Comment on above: Performed By: #### C BCWD #### [facility] [address] [place] [address] Glucose [Mass/Vol] 114 mg/dL Critically high 70-99 M [facility] Comment on above: Performed By: #### C BCWD #### [facility] [address] [place] [address] Magnesium [Moles/Vol] 3.6 mmol/L Normal 3.4-4.9 [facility] Comment on above: Performed By: #### C BCWD #### [facility] [address] [place] [address] Protein [Mass/Vol] 6.8 g/dL Normal 6.3-8.0 [facility] Comment on above: Performed By: #### C BCWD #### [facility] [address] [place] [address] Sodium [Moles/Vol] 140 mmol/L Normal 135-144 [facility] Comment on above: Performed By: #### C BCWD #### [facility] [address] [place] [address] Urea nitrogen [Mass/Vol] 10 mg/dL Normal 6-20 [facility] Comment on above: Performed By: #### C BCWD #### [facility] [address] [place] [address] Comprehensive Metabolic Pane l w/ Reflex to MGon 08-21-2021 Albumin [Mass/Vol] 4.3 g/dL 3.5 - 4.6 g/dL [facility] ALP (Bld) [Catalytic activity/Vol] 116 U/L 40 - 130 U/L [facility] ALT [Catalytic activity/Vol] 8 U/L 0 - 33 U/L [facility] Anion gap [Moles/Vol] 13 mmol/L [facility] AST [Catalytic activity/Vol] 10 U/L 0 - 35 U/L [facility] Bilirubin [Mass/Vol] mg/dL 0.2 - 0 .7 mg/dL [facility] Calcium [Mass/Vol] 9.3 mg/dL 8.5 - 9.9 mg/dL [facility] Chloride [Moles/Vol] 105 mmol/L [facility] CO2 [Moles/Vol] 22 mmol/L [facility] Creatinine [Mass/Vol] 0.48 mg/dL Low 0.50 - 0.90 mg/dL [facility] Free PSA/Total PSA [Mass fraction] 6.8 g/dL 6.3 - 8.0 g/dL [facility] GFR >60.0 >60 [facility] Comment on above: >60 mL/min/1.73m2 EG FR, calc. for ages 18 and older using the MDRD formula (not corrected for weight), is valid for stable renal function. GFR Non- >60.0 >60 [facility] Comment on above: >60 mL/min/1.73m2 EG FR, calc. for ages 18 and older using the MDRD formula (not corrected for weight), is valid for stable renal function. Globulin (S) [Mass/Vol] 2.5 g/dL 2.3 - 3.5 g/dL [facility] Glucose [Mass/Vol] 114 mg/dL High 70 - 99 mg/dL [facility] Interpretation and review of laboratory results Abnormal [facility] Potassium reflex Magnesium 3.6 [facility] Sodium [Moles/Vol] 140 mmol/L [facility] Urea nitrogen (BldV) [Mass/Vol] 10 mg/dL 6 - 20 mg/dL [facility] Lipaseon 08-21-2021 Lipase [Catalytic activity/Vol] 18 U/L Normal 12-95 [facility] Comment on above: Performed By: #### L IPAS #### [facility] [address] [facility] [address] Lipase [Catalytic activity/Vol] 18 U/L 12 - 95 U/L [facility] No Panel Informationon 08-21 [facility] , Urineon 2 Beta HCG ( test) Ql (U) Negative Detects HCG level >20 MIU/mL [facility] UR HCG Qualitativeon 022 Beta HCG ( test) Ql (U) Negative Normal Detects [facility] Comment on above: Performed By: #### C BCWD #### [facility] [address] [place] [address] Urinalysis with Reflex to Cu ltureon 08-21-2021 Bilirubin Urine Negative Negative [facility] Blood, Urine Negative Negative [facility] Clarity, UA Clear Clear [facility] Color, UA Yellow Straw/Yellow [facility] Glucose, Ur Negative Negative mg/dL [facility] Ketones Ql (U) Negative Negative mg/dL [facility] Leukocyte esterase Test strip Ql (U) Negative Negative [facility] Nitrite, Urine Negative Negative [facility] pH, UA 5.5 [facility] Protein, UA Negative Negative mg/dL [facility] Specific [place], UA <=1.005 [facility] Urine Reflex to Culture Not Indicated [facility] Urobilinogen, Urine 0.2 <2.0 E.U./dL [facility] Urinalysis, reflex to cultur minoo 08-21-2021 Bilirubin Ql (U) Negative Normal Negative [facility] Comment on above: Performed By: #### C BCWD #### [facility] [address] [address] Clarity (U) Clear Normal Clear [facility] Comment on above: Performed By: #### C BCWD #### [facility] [address] [place] [address] Color (U) Yellow Normal Straw/Nuckolls [facility] Comment on above: Performed By: #### C BCWD #### [facility] [address] [place] [address] Glucose Ql (U) Negative Normal Negative [facility] Comment on above: Performed By: #### C BCWD #### [facility] [address] [place] [address] Hemoglobin Ql (U) Negative Normal Negative [facility] Comment on above: Performed By: #### C BCWD #### [facility] [address] [place] [address] Ketones Ql (U) Negative Normal Negative [facility] Comment on above: Performed By: #### C BCWD #### [facility] [address] [place] [address] Leukocyte esterase Test strip Ql (U) Negative Normal Negative [facility] Comment on above: Performed By: #### C BCWD #### [facility] [address] [place] [address] Nitrite Ql (U) Negative Normal Negative [facility] Comment on above: Performed By: #### C BCWD #### [facility] [address] [place] [address] pH (U) 5.5 [pH] Normal 5.0-9.0 [facility] Comment on above: Performed By: #### C BCWD #### [facility] [address] [place] [address] Protein Ql (U) Negative Normal Negative [facility] Comment on above: Performed By: #### C BCWD #### [facility] [address] [place] [address] Specific gravity (U) [Rel density] <=1.005 Normal 1.005-1.03 [facility] Comment on above: Performed By: #### C BCWD #### [facility] [address] [place] [address] Urine Reflexed to Culture Not Indicated Normal [facility] Comment on above: Performed By: #### C BCWD #### [facility] [address] [place] [address] Urobilinogen Qn (U) 0.2 {Ginger'U}/dL Normal < 2.0 [facility] Comment on above: Performed By: #### C BCWD #### [facility] [address] [place] [address] CBC WITH AUTO DIFFERENTIALon 02-29-2020 Basophils (Bld) [#/Vol] 0.0 10*3/uL 0 - 0.2 K/uL [place] Basophils/100 WBC (Bld) 0.4 % [place] Eosinophils (Bld) [#/Vol] 0.2 10*3/uL 0 - 0.7 K/uL [facility] [place], [place] Eosinophils/100 WBC (Bld) 2.6 % [place] Erythrocyte distribution width (RBC) [Ratio] 13.6 % 11.5 - 14.5 % [place] Hematocrit (Bld) [Volume fraction] 40.3 % 37 - 47 % [place] Hemoglobin (Bld) [Mass/Vol] 13.6 g/dL 12 - 16 g/dL [place] Lymphocytes (Bld) [#/Vol] 1.7 10*3/uL 1 - 4.8 K/uL [place] Lymphocytes/100 WBC (Bld) 21.0 % [place] MCH (RBC) [Entitic mass] 31.0 pg 27 - 31.3 pg [place] MCHC (RBC) [Mass/Vol] 33.9 % 33 - 37 % [place] MCV (RBC) [Entitic vol] 91.6 fL 82 - 100 fL [place] Monocytes (Bld) [#/Vol] 0.4 10*3/uL 0.2 - 0.8 K/uL [place] Monocytes/100 WBC (Bld) 4.6 % [place] Neutrophils Absolute 5.6 K/uL 1.4 - 6 .5 K/uL [place] Neutrophils/100 WBC (Bld) 71.4 % [place] Platelets (Bld) [#/Vol] 195 10*3/uL 130 - 400 K/uL [place] RBC (Bld) [#/Vol] 4.40 10*6/uL [place] WBC (Bld) [#/Vol] 7.9 10*3/uL 4.8 - 10.8 K/uL [place] COVID-19on 02-29-2020 SARS-CoV-2, NAAT Not Detected Not Detected [place] Comment on above: Rapid NAAT: Negative [...] authorized laboratories. Fact sheet for Healthcare Providers: https://www.fda.gov/media/041982/download Fact sheet for Patients: https://www.[employer].gov/media/780115/download METHODOLOGY: Isothermal Nucleic Acid Amplification POC UR-QUALon 02-11 Beta HCG ( test) Ql (U) Negative Negative [place] Lot Number [id number] [id number] [place] Negative QC Pass/Fail Pass [place] Positive QC Pass/Fail Pass [place] Hemoglobinon 11-03-2019 Hemoglobin (Bld) [Mass/Vol] 11.2 g/dL Low 12 - 16 g/dL [place] Interpretation and review of laboratory results Abnormal [place] RPRon 11-03-2019 Reagin Ab RPR Ql (S) Non-reactive Non-reactive [place] CBC auto differentialon 10-13 Basophils (Bld) [#/Vol] 0.0 10*3/uL 0 - 0.2 K/uL [place] Basophils/100 WBC (Bld) 0.3 % [place] Eosinophils (Bld) [#/Vol] 0.1 10*3/uL 0 - 0.7 K/uL [place] Eosinophils/100 WBC (Bld) 1.2 % [place] Erythrocyte distribution width (RBC) [Ratio] 13.4 % 11.5 - 14.5 % [place] Hematocrit (Bld) [Volume fraction] 34.9 % Low 37 - 47 % [place] Hemoglobin (Bld) [Mass/Vol] 11.7 g/dL Low 12 - 16 g/dL [place] Interpretation and review of laboratory results Abnormal [place] Lymphocytes (Bld) [#/Vol] 1.4 10*3/uL 1 - 4.8 K/uL [place] Lymphocytes/100 WBC (Bld) 11.4 % [place] MCH (RBC) [Entitic mass] 31.2 pg 27 - 31.3 pg [place] MCHC (RBC) [Mass/Vol] 33.6 % 33 - 37 % [place] MCV (RBC) [Entitic vol] 93.0 fL 82 - 100 fL [place] Monocytes (Bld) [#/Vol] 0.5 10*3/uL 0.2 - 0.8 K/uL [place] Monocytes/100 WBC (Bld) 4.2 % [place] Neutrophils Absolute 10.1 K/uL High 1.4 - 6 .5 K/uL [place] Neutrophils/100 WBC (Bld) 82.9 % [place] Platelets (Bld) [#/Vol] 191 10*3/uL 130 - 400 K/uL [place] RBC (Bld) [#/Vol] 3.75 10*6/uL Low [place] WBC (Bld) [#/Vol] 12.1 10*3/uL High 4.8 - 10.8 K/uL [place] Comprehensive Metabolic Pane fortunato 11-02-2019 Albumin [Mass/Vol] 3.2 g/dL Low 3.5 - 4.6 g/dL [place] ALP [Catalytic activity/Vol] 147 U/L High 40 - 130 U/L [place] ALT [Catalytic activity/Vol] 6 U/L 0 - 33 U/L [place] Anion gap [Moles/Vol] 10 mmol/L [place] AST [Catalytic activity/Vol] 7 U/L 0 - 35 U/L [place] Bilirubin Ql (U) <0.2 0.2 - 0.7 mg/dL [place] Calcium [Mass/Vol] 8.4 mg/dL Low 8.5 - 9.9 mg/dL [place] Chloride [Moles/Vol] 104 mmol/L [place] CO2 [Moles/Vol] 21 mmol/L [facility] [place] [place] Creatinine [Mass/Vol] 0.3 mg/dL Low 0.5 - 0.9 mg/dL [place] GFR >60.0 >60 [place] Comment on above: >60 mL/min/1.73m2 EG FR, calc. for ages 18 and older using the MDRD formula (not corrected for weight), is valid for stable renal function. GFR Non- >60.0 >60 [place] Comment on above: >60 mL/min/1.73m2 EG FR, calc. for ages 18 and older using the MDRD formula (not corrected for weight), is valid for stable renal function. Globulin (S) [Mass/Vol] 2.8 g/dL 2.3 - 3.5 g/dL [place] Glucose [Mass/Vol] 103 mg/dL High 70 - 99 mg/dL [place] Interpretation and review of laboratory results Abnormal [place] Potassium [Moles/Vol] 3.9 mmol/L [place] Protein [Mass/Vol] 6.0 g/dL Low 6.3 - 8 g/dL [place] Sodium [Moles/Vol] 135 mmol/L [place] Urea nitrogen [Mass/Vol] 8 mg/dL 6 - 20 mg/dL [place] DRUG SCREEN MULTI URINEon Amphetamine Screen, Urine Negative Negative <1000 ng/mL [place] Barbiturate Screen, Ur Negative Negative < 200 ng/mL [place] Benzodiazepine Screen, Urine Negative Negative < 200 ng/mL [place] Cannabinoid Scrn, Ur Negative Negativ e < 50 ng/mL [place] Cocaine Metabolite Screen, Urine Negative Negative < 300 ng/mL [place] Drug Screen Comment: see below [place] Comment on above: This method is a scr eening test to detect only these drug classes as part of a medical workup. Confirmatory testing by another method should be ordered if clinically indicated. Methadone Screen, Urine Negative Negative <300 ng/mL [place] Comment on above: Effective: 10/20/18 New Test for Qualitative Drug Screen. Opiate Scrn, Ur Negative Negative < 300 ng/mL [place] Oxycodone Urine Negative Negative <10 0 ng/mL [place] Comment on above: Effective: 10/20/18 New Test for Qualitative Drug Screen. PCP Screen, Urine Negative Negative < 25 ng/mL [place] Propoxyphene Scrn, Ur Negative Negative <300 ng/mL [place] Comment on above: Effective: 10/20/18 New Test for Qualitative Drug Screen. Hepatitis B surface antigeno n 11-02-2019 Hep B S Ag Interp Non-reactive [place] Rubella antibody, IgGon 10-13 Rubella Antibody IgG 69.5 IU/mL [place] Comment on above: Patient's result ind icates immunity. Default Normal Ranges >=10 Presumed Immune <10 Presumed Not immune TYPE AND SCREENon 11-02-2019 ABO/Rh Positive [place] Urinalysison 11-02-2019 Bilirubin Urine Negative Negative [place] Blood, Urine Negative Negative [place] Clarity, UA Clear Clear [place] Color, UA Yellow Straw/Yellow [place] Glucose, Ur Negative Negative mg/dL [place] Ketones Ql (U) Negative Negative mg/dL [place] Leukocyte esterase Test strip Ql (U) Negative Negative [place] Nitrite, Urine Negative Negative [place] pH, UA 7.5 [place] Protein (U) [Mass/Vol] Negative Negative mg/dL [place] Specific [place], UA 1.020 [place] Urobilinogen, Urine 0.2 <2.0 E.U./dL [place] Otheron 06-19-2019 APPROPRIATE GROWTH SINCE LAST SONOGRAM. [place] Sonogram #: 1 Presentation: Transverse, head [...] the amniotic fluid is within normal limits. [facility] [place], [place] Manny, Chpo Incoming Radiant Results From [employer] - 06/19/2019 5:09 PM EDT Sonogram #: [...] limits. IMPRESSION: APPROPRIATE GROWTH SINCE LAST SONOGRAM. MZL [employer] US OB LESS THAN 14 WEEKS SIN GLE OR FIRST GESTATIONon 04-14-2019 THERE IS A SINGLE IU P WITH ESTIMATED GESTATIONAL AGE BASED UPON CROWN-RUMP LENGTH OF 10 WEEKS 2 DAYS +/- 1 WEEK WITH HEART RATE OF 155 BPM. ANATOMY IS NOT ASSESSED DUE TO EARLY GESTATIONAL AGE. THE RIGHT OVARY IS SURGICALLY ABSENT. THE LEFT OVARY SUBMITTED VISUALIZED. [place] TRANSABDOMINAL EXAMINATION OF THE PELVIS CLINICAL [...] ovary is not visualized. No free fluid. [facility] [place] Manny, Chpo Incoming Radiant Results From [employer] - 04/14/2019 4:16 PM EST TRANSABDOMINAL EXAMINATION [...] SURGICALLY ABSENT. THE LEFT OVARY SUBMITTED VISUALIZED. [facility] [place] PROGRESSon 09-30-2018 PROGRESS HNO ID: [id number] Author: Maranda Gupta) Vimal Service: ? Author Type: PATIENT RELATIONS MANAGER Type: Progress Notes Filed: 09/30/2018 3:29 PM [...] to clinic: end of week Maranda Celis, ROGER I have confirmed and edited as necessary [...] all of its relevant components. Maranda Celis, ROGER September 30, 2018 2:08 PM Normal [facility] PROGRESSon 04-24-2018 PROGRESS HNO ID: [id number] Author: Maranda Celis Service: ? Author Type: PATIENT RELATIONS MANAGER Type: Progress Notes Filed: 04/24/2018 3:32 PM [...] OD April 24, 2018 3:31 PM Normal [facility] Office Visit (Urgent Care)on 08-21-2017 Office Visit (Urgent Care) Chief Complaint Rash History of Present [id number] female who 2 hours ago was sitting [...] 08/21/2017 5:38:10 PM Vitals Vital Signs Recorded: [id number] 05:55EQKlbgxanjsmg27. 5 FHeart [id number] [id number] Height5 ft 3 [id number] lb BMI Fiflcvegms20ENM Calculated1.83O2 Ekhcpmrylq13Npdb Scale0 Physical ExamPatient appears in no apparent [...] Aug 21 2017 5:57PM EST (Author) Normal [employer] Vital Signs Date Time Vital Sign Value Performing Clinician Faci litvanessa 12-16-2021 07:12-0400 Body height 160 cm Sulema Teran DO Work Phone: [employer] 12-16-2021 07:12-0400 Body mass index (BMI) [Ratio] 31.89 kg/m2 Sulema Teran DO Work Phone: [employer] 12-16-2021 07:12-0400 Body temperature 98.91 [degF] Sulema Teran DO Work Phone: [employer] 12-16-2021 07:12-0400 Body weight 81.65 kg Sulema Teran DO Work Phone: [employer] 12-16-2021 07:12-0400 Diastolic blood pressure 84 mm[Hg] Sulema Teran DO Work Phone: [employer] 12-16-2021 07:12-0400 Heart rate 104 /min Sulema Teran DO Work Phone: [employer] 12-16-2021 07:12-0400 Respiratory rate 18 /min Sulema Teran DO Work Phone: [employer] 12-16-2021 07:12-0400 SaO2% (BldA) [Mass fraction] 98 % Sulema De La Cruzin DO Work Phone: [employer] 12-16-2021 07:12-0400 Systolic blood pressure 127 mm[Hg] Sulema Teran DO Work Phone: [facility] 10-28-2021 15:43-0400 Body height 160 cm Nikki Martha-David PA-C Work Phone: [facility] [employer] 10-28-2021 15:43-0400 Body mass index (BMI) [Ratio] 31.89 kg/m2 Nikki Martha-David PA-C Work Phone: [facility] 10-28-2021 15:43-0400 Body temperature 98.1 [degF] Nikki Martha-David PA-C Work Phone: [facility] [employer] 10-28-2021 15:43-0400 Body weight 81.65 kg Nikki Martha-David PA-C Work Phone: [facility] 10-28-2021 15:43-0400 Diastolic blood pressure 81 mm[Hg] Nikki Martha-David PA-C Work Phone: [facility] [employer] 10-28-2021 15:43-0400 Heart rate 93 /min Nikki Martha-David PA-C Work Phone: [facility] 10-28-2021 15:43-0400 Respiratory rate 20 /min Nikki Martha-David PA-C Work Phone: [facility] 10-28-2021 15:43-0400 SaO2% (BldA) [Mass fraction] 98 % Nikki Martha-David PA-C Work Phone: [facility] 10-28-2021 15:43-0400 Systolic blood pressure 130 mm[Hg] Nkiki Martha-David PA-C Work Phone: [facility] 08-21-2021 06:21-0400 Body temperature 98.2 [degF] Penny Ritter MD Work Phone: [employer] 08-21-2021 06:21-0400 Diastolic blood pressure 58 mm[Hg] Penny Ritter MD Work Phone: [employer] 08-21-2021 06:21-0400 Heart rate 81 /min Penny Ritter MD Work Phone: [employer] 08-21-2021 06:21-0400 Respiratory rate 16 /min Penny Ritter MD Work Phone: [employer] 08-21-2021 06:21-0400 SaO2% (BldA) [Mass fraction] 97 % Penny Ritter MD Work Phone: [employer] 08-21-2021 06:21-0400 Systolic blood pressure 116 mm[Hg] Penny Ritter MD Work Phone: [employer] 08-21-2021 01:09-0400 Body height 160 cm Penny Ritter MD Work Phone: [employer] 08-21-2021 01:09-0400 Body mass index (BMI) [Ratio] 32.06 kg/m2 Penny Ritter MD Work Phone: [employer] 08-21-2021 01:09-0400 Body weight 82.1 kg Penny Ritter MD Work Phone: [employer] 11-05-2020 07:21-0400 Body temperature 98.1 [degF] Rebecca Gonzalez [employer] Work Phone: 11-05-2020 07:21-0400 Diastolic blood pressure 71 mm[Hg] Rebecca Gonzalez [employer] Work Phone: 11-05-2020 07:21-0400 Heart rate 94 /min Rebecca Gonzalez [employer] Work Phone: 11-05-2020 07:21-0400 Respiratory rate 18 /min Rebecca Gonzalez Eletrogóes [facility] [employer] Phone: 11-05-2020 07:21-0400 SaO2% (BldA) [Mass fraction] 99 % Rebecca Gonzalez Eletrogóes [facility] [employer] Phone: 11-05-2020 07:21-0400 Systolic blood pressure 116 mm[Hg] Rebecca Gonzalez Eletrogóes [facility] [employer] Phone: 02-29-2020 12:25-0500 Body Temperature 97.7 [degF] [facility] [employer] 02-29-2020 12:25-0500 BP Diastolic 56 mm[Hg] Rj [place] [facility] [place] , [place] 02-29-2020 12:25-0500 BP Systolic 123 mm[Hg] Rj Lauren [facility] [place] , [place] 02-29-2020 12:25-0500 Pulse (Heart Rate) 76 /min Rj [employer], [place] 02-29-2020 12:25-0500 Pulse Oximetry 99 % Rj [employer] , [place] 02-29-2020 12:25-0500 Respiratory Rate 16 /min [facility] [employer] 02-29-2020 08:15-0500 BMI (Body Mass Index) 34.54 kg/m2 jR [place] [employer] ([employer]) [facility], [place] 02-29-2020 08:15-0500 Body weight 88.45 kg Rj Lauren [facility] , [place] 02-29-2020 08:15-0500 Height 160 cm Rj [employer] , [place] 11-04-2019 07:30-0400 Body Temperature 98.29 [degF] [facility] [place] 11-04-2019 07:30-0400 BP Diastolic 68 mm[Hg] Rj [place] [facility] [place] 11-04-2019 07:30-0400 BP Systolic 115 mm[Hg] Rj [place] [facility] [place] 11-04-2019 07:30-0400 Pulse (Heart Rate) 88 /min [facility] [place] 11-04-2019 07:30-0400 Respiratory Rate 16 /min [facility] [place] 11-03-2019 12:37-0400 Pulse Oximetry 99 % Rj Aguilar [facility] [place] , [place] 11-02-2019 07:45-0400 BMI (Body Mass Index) 37.91 kg/m2 Rj [facility], [place] 11-02-2019 07:45-0400 Body weight 97.07 kg Rj [facility] , [place] 11-02-2019 07:45-0400 Height 160 cm Rj [facility] , [place] 09-30-2018 10:02-0400 BMI (Body Mass Index) 31 kg/m2 Tip [facility], [place] 09-30-2018 10:02-0400 Body Temperature 98.49 [degF] [place] 09-30-2018 10:02-0400 Body weight 79.38 kg [place], [place] 09-30-2018 10:02-0400 BP Diastolic 71 mm[Hg] [place] 09-30-2018 10:02-0400 BP Systolic 139 mm[Hg] [place] 09-30-2018 10:02-0400 Height 160 cm [place] 09-30-2018 10:02-0400 Pulse (Heart Rate) 102 /min [place], [place] 09-30-2018 10:02-0400 Pulse Oximetry 98 % [place] 09-30-2018 10:02-0400 Respiratory Rate 14 /min [place] Encounters Encounter Date Encounter Type Care Provider Facility Start: 03-18-2023 Chart abstracting Fish lorenz MD Work Phone: [facility] Start: 03-11-2023 End: 03-11-2023 ambulatory JOSE F ANN Not Available Start: 02-18-2023 End: 02-18-2023 ambulatory DONNELL FINCH Not Available Start: 01-29-2023 End: 01-30-2023 ambulatory NIKKI MCGOVERN [place] Start: 01-29-2023 End: 01-29-2023 Patient encounter procedure Jose F R SETH [facility] Start: 01-29-2023 End: 01-30-2023 ambulatory Jose F R SETH [place] Start: 01-29-2023 End: 01-29-2023 Patient encounter procedure Jose F R SETH [facility] Start: 01-11-2023 End: 01-12-2023 ambulatory Jose F R SETH [place] Start: 01-11-2023 End: 01-11-2023 Patient encounter procedure Jose F R SETH [facility] Start: 01-10-2023 End: 01-10-2023 ambulatory JOSE F SETH Not Available Start: 12-28-2022 End: 12-28-2022 ambulatory DONNELL FINCH Not Available Start: 07-31-2022 End: 07-31-2022 Emergency department patient visit [facility] Start: 04-11-2022 End: 04-12-2022 ambulatory LILIANA CARROLL [facility] Start: 04-11-2022 End: 04-11-2022 Subsequent hospital visit by physician Nikki Mcgovern PA-C Work Phone: [facility] Comment on above: Tonsillitis with exu date Start: 12-16-2021 End: 12-16-2021 Emergency department patient visit [facility] Start: 12-16-2021 End: 12-16-2021 Emergency department patient visit Sulema Teran DO Work Phone: [facility] Comment on above: Bitten by mouse, inabida tial encounter (Primary Dx) Start: 11-29-2021 End: 11-29-2021 ambulatory [facility] Start: 10-28-2021 End: 10-28-2021 Emergency department patient visit [facility] Start: 10-28-2021 End: 10-28-2021 Emergency department patient visit [facility] PA-C Work Phone: [facility] Comment on above: Cellulitis of trunk, unspecified site of trunk (Primary Dx) Start: 08-21-2021 End: 08-21-2021 Emergency department patient visit [facility] Start: 08-21-2021 End: 08-21-2021 Emergency department patient visit Penny Ritter MD Work Phone: [facility] Comment on above: Acute gastritis with out hemorrhage, unspecified gastritis type (Primary Dx) Start: 11-05-2020 End: 11-05-2020 Emergency department patient visit Rebecca Gonzalez DO [facility] Comment on above: Dental abscess (Prim shilpi Dx) Start: 08-12-2020 End: 08-12-2020 Subsequent hospital visit by physician Joni Ekg Rm 1 EKG Comment on above: Arrived Heart palpitations Start: 02-29-2020 End: 02-29-2020 Subsequent hospital visit by physician Rj Aguilar Work Phone: [facility] Comment on above: Postoperative pain ( Primary Dx) Start: 11-02-2019 End: 11-04-2019 Evaluation and management of inpatient Rj Aguilar Work Phone: [facility] Comment on above: Postoperative pain ( Primary Dx) Start: 10-23-2019 End: 10-23-2019 Subsequent hospital visit by physician Nikki [facility] Start: 06-19-2019 End: 06-21-2019 Subsequent hospital visit by physician Madhav Emery 3 [facility] Madhav Ultrasound Comment on above: Amenorrhea Start: 04-14-2019 End: 04-16-2019 Subsequent hospital visit by physician Olvera Ultrasound Room 1 [facility] Ultrasound Comment on above: Amenorrhea Start: 09-30-2018 End: 09-30-2018 Emergency department patient visit Tip Antunez Work Phone: [facility] ED Comment on above: Pain around left eye (Primary Dx) Procedures Date Procedure Procedure Detail Performing Clinician Start: 01-29-2023 GLU 1H POST 50G LOAD No t In System Ref Prov Start: 01-11-2023 Antibody screen Samantha Camara MD Work Phone: Start: 01-11-2023 Assay of thyroid stimulating hormone tsh Not In System Ref Prov Start: 01-11-2023 Hepatitis c antibody No t In System Ref Prov Start: 01-11-2023 HIV 1&2 AB/AG SCREEN (P24 AG) Not In System Ref Prov Start: 01-11-2023 Iaad ia hepatitis b surface antigen Not In System Ref Prov Start: 01-11-2023 TYPE AND SCREEN Not In System Ref Prov Start: 10-28-2021 Ct abdomen & pelvis w/contrast material Spring Orozco 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 Other Phone: Start: 10-28-2021 Blood count complete auto&auto difrntl wbc Springsoraya Orozco 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 Other Phone: Start: 10-28-2021 Urine test visual color cmprsn meths Spring 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 Other Phone: Start: 08-21-2021 Assay of lipase [...] Fuentes Work Phone: Start: 02-29-2020 COVID-19 Junior Jonathan Ya xavier Work Phone: Start: 11-03-2019 Blood [...] Work Phone: c section x2 Jose F ANN Colonoscopy Jose F ANN extraction of wisdom teeth Jose F ANN H/O: section Previous c esarean section [facility] 1 Plan of Treatment Date Care Activity Detail Author Start: 12-17-2031 DTaP/Tdap/Td vaccine (3 - Td or Tdap) DTaP/Tdap/Td vaccine (3 - Td or Tdap) [facility] Start: 07-12-2025 Screening for malign ant neoplasm of cervix [facility] Start: 05-27-2024 Screening for malign ant neoplasm of cervix Cervical cancer screen [place], [place] Start: 07-13-2023 Screening for malign ant neoplasm of cervix Pap smear [facility] Start: 03-21-2023 End: 03-21-2023 Patient encounter procedure 03/21/2023 8:00 AM EST Appointment [facility] [place] [address] [facility] [address] [place] [address] [facility] [place] Start: 03-07-2023 Depression Monitoring Depression [facility] Start: 10-12-2022 Influenza vaccination Influenza Vacc [facility] Start: 08-29-2022 Depression Monitoring Depression [facility] Start: 06-08-2022 End: 06-08-2022 Patient encounter procedure 06/08/2022 Office Visit Neurology Blas Mike MD [address] [address] [facility] Neurology Start: 02-02-2022 End: 02-02-2022 Patient encounter procedure 02/02/2022 Office Visit Neurology Blas Mike MD [address] [place] [address] [facility] Neurology Start: 01-10-2022 End: 01-10-2022 Patient encounter procedure 01/10/2022 Office Visit Family Medicine Nikki Mcgovern PA-C [address] [place] [address] [facility] Start: 12-18-2021 End: 12-18-2021 Patient encounter procedure 12/18/2021 Office Visit Orthopedic Surgery Alena Chandra MD [address] [place] [address] [facility] Start: 10-12-2021 Influenza vaccination Flu vaccine (# 1) [facility] Start: 09-29-2021 End: 09-29-2021 Patient encounter procedure 09/29/2021 Office Visit Neurology Blas Mike MD [address] [place] [address] [facility] Start: 09-11-2021 Influenza vaccination Flu vaccine (# 1) [facility] Start: 01-20-2021 End: 01-20-2021 Patient encounter procedure 01/20/2021 Office Visit Neurology Blas Mike MD [address] [place] [address] [phone] [facility] Neu[facility] Start: 12-01-2020 End: 12-01-2020 Patient encounter procedure 12/01/2020 Office Visit Obstetrics and Gynecology Rj Aguilar, [address] [place] [address] [phone] [facility] Obstetrics and Gynecology Start: 10-12-2020 Influenza vaccination Flu vaccine (# 1) [facility] Work Phone: Start: 09-29-2020 End: 09-29-2020 Patient encounter procedure 09/29/2020 Office Visit Family Medicine Nikki Mcgovern PA-C [address] [place] [address] [phone] [facility] Start: 09-16-2020 End: 09-16-2020 Patient encounter procedure 09/16/2020 Office Visit Neurology Blas Mike MD [address] [place] [address] [phone] [facility] [place] [facility] Start: 02-16-2020 End: 02-16-2020 Procedure visit 02/16/2020 Procedure visit Obstetrics and Gynecology Rj Aguilar, [address] [place] [address] [phone] [facility] Obstetrics and Gynecology Start: 12-01-2019 DTaP/Tdap/Td vaccine (2 - Td or Tdap) DTaP/Tdap/Td vaccine (2 - Td or Tdap) [facility] Start: 12-01-2019 DTaP/Tdap/Td vaccine (2 - Td) DTaP/Tdap/Td vaccine (2 - Td) [place] Start: 10-13-2019 Influenza vaccination [place], [place] Start: 06-25-2019 End: 06-25-2019 Routine 06/25/2019 Routine Obstetrics and Gynecology Rj Aguilar, [address] [place] [address] [phone] [facility] Obstetrics and Gynecology Start: 05-05-2019 End: 05-05-2019 Routine 05/05/2019 Routine Obstetrics and Gynecology Rj Aguilar, [address] [place] [address] [phone] [facility] Obstetrics and Gynecology Start: 10-12-2018 Influenza vaccination Flu vaccine (# 1) [place] Start: 05-07-2016 Cervical cancer screen Cervical canc er screen [place], [place] Start: 10-20-2008 Screening for malign ant neoplasm of cervix Pap Smear [facility] Start: 10-20-2006 DTaP,Tdap and Td Vaccines (1 - Tdap) DTaP,Tdap and Td Vaccines (1 - Tdap) [facility] Start: 10-20-2005 Adult BMI Screening Adult BMI Screen ing [facility] Start: 10-20-2000 Varicella Vaccine (1 of 2 - 13+ 2-dose series) Varicella Vaccine (1 of 2 - 13+ 2-dose series) [place], [place] Start: 1999 COVID-19 Vaccine (1) COVID-19 [facility]in e (1[facility] Start: 1999 Depression Monitoring Depression Mon itoring [facility] Start: 1999 Depression Screening Depression Scre ening [facility] Start: 1999 Tobacco Screening Tobacco Screening [facility] Start: 10-20-1993 Pneumococcal 0-64 ye ars Vaccine (1 - PCV) Pneumococcal 0-64 years Vaccine (1 - PCV) [facility] Start: 10-20-1993 Pneumococcal 0-64 ye ars Vaccine (1 of 1 - PPSV23) Pneumococcal 0-64 years Vaccine (1 of 1 - PPSV23) [place] Start: 10-20-1993 Pneumococcal 0-64 ye ars Vaccine (1 of 2 - PPSV23) Pneumococcal 0-64 years Vaccine (1 of 2 - PPSV23) [facility] [employer] Phone: Start: 10-20-1992 COVID-19 Vaccine (1) COVID-19 Vaccin e (1) [facility] Start: 10-20-1988 Varicella vaccine (1 of 2 - 2-dose childhood series) Varicella vaccine (1 of 2 - 2-dose childhood series) [facility] Start: 04-19-1988 COVID-19 Vaccine (#1) COVID-19 Vacci ne (#1) [facility] Start: 1987 Tobacco Counseling Tobacco Counselin g [facility] End: 08-21-2021 CT ABDOMEN PELVIS W IV CONTRAST Additional Contrast? None CT ABDOMEN PELVIS W IV CONTRAST Additional Contrast? None Imaging Routine Once for 1 Occurrences starting 08/21/2021 until 08/21/2021 [facility] [employer] Phone: Comment on above: Once for 1 Occurrenc es starting 08/21/2021 until 08/21/2021 CT ABDOMEN PELVIS W IV CONTRAST Additional Contrast? None CT ABDOMEN PELVIS W IV CONTRAST Additional Contrast? None Imaging STAT 08/21/2021 2:34 AM EDT NAKUL [employer] Phone: End: 10-28-2021 Culture, Anaerobic and Aerobic Culture, Anaerobic and Aerobic Microbiology Routine One Time for 1 Occurrences starting 10/28/2021 until 10/28/2021 [employer] Phone: Comment on above: One Time for 1 Occur rences starting 10/28/2021 until 10/28/2021 End: 04-11-2022 Culture, Throat [employer] Phone: Comment on above: 1 Occurrences starti ng 04/11/2022 until 04/11/2022 End: 08-12-2020 Holter Monitor 48 Hour Holter Monitor 48 Hour Cardiac Services Routine Heart palpitations 1 Occurrences starting 08/12/2020 until 08/12/2020 [employer] Phone: Comment on above: 1 Occurrences starti ng 08/12/2020 until 08/12/2020 Oxygen therapy [[facility] [place] Set] [facility] Comment on above: Daily until disconti nued starting 11/02/2019 Daily until disconti nued starting 02/29/2020 Phase I & II - meter ed glucose Phase I & II - metered glucose Point of Care Testing Routine As Needed until discontinued starting 02/29/2020 [facility] Comment on above: As Needed until disc ontinued starting 02/29/2020 End: 11-02-2019 RHOGAM INJECTION ONLY RHOGAM INJECTION ONLY Blood Bank Routine One Time for 1 Occurrences starting 11/02/2019 until 11/02/2019 [facility] Comment on above: One Time for 1 Occur rences starting 11/02/2019 until 11/02/2019 Spirometry panel Incentive jayleen metry Respiratory Care Routine Every 2hr while awake until discontinued starting 11/02/2019 [facility] Comment on above: Every 2hr while awak e until discontinued starting 11/02/2019 Surgical Pathology Surgical Path ology Lab Routine Release Upon Ordering for 1 Occurrences starting 02/29/2020 [place], [place] Comment on above: Release Upon Orderin g for 1 Occurrences starting 02/29/2020 End: 04-14-2019 US OB Transvaginal US OB Transvaginal Imaging Routine Amenorrhea 1 Occurrences starting 04/14/2019 until 04/14/2019 [place], [place] Comment on above: 1 Occurrences starti ng 04/14/2019 until 04/14/2019 US OB Transvaginal US OB Transva ginal Imaging Routine Amenorrhea 04/14/2019 2:44 PM EST [place], [place] Immunizations Immunization Date Immunization Notes [facility]2021 tetanus toxoid, redu jameson diphtheria toxoid, and acellular pertussis vaccine, adsorbed Sulema Teran DO Work Phone: [facility] 11-02-2019 diphtheria, tetanus toxoids and acellular pertussis vaccine, unspecified formulation Rj Aguilar [place], [place] 01-22-2017 tetanus toxoid, redu jameson diphtheria toxoid, and acellular pertussis vaccine, adsorbed Jose F ANN [facility] Comment on above: Reason for Medicatio n: Other (see comment) 11-30-2009 tetanus toxoid, redu jameson diphtheria toxoid, and acellular pertussis vaccine, adsorbed Tip Antunez [facility] 10-04-2000 measles, mumps and rubella virus vaccine Rebecca Gonzalez [facility] Work Phone: Payers Date Payer Category Payer Medicaid [employer] [facility] O [id number] 2023-Present [phone] [address] [place] [address] [id number] 2021 Unknown , [id number] 2017 Unknown [id number] 2016 Unknown [facility] MEDICAID xxxxxxxxxxx 2016-Present [phone] CLAIMS DEPARTMENT [address] [place] [address] xxxxxxxxxxx [id number] 2016 Unknown [id number] 1987 Unknown [id number] 1987 Unknown [id number] 1987 Unknown [id number] 1987 Unknown [id number] [id number] 1987 Unknown [id number] [id number] 1987 Unknown [id number] [id number] 1987 Unknown [id number] [id number] 1987 Unknown [id number] [id number] 1987 Unknown [id number] [id number] 1987 Unknown [id number] [id number] 1987 Unknown [id number] 1987 Unknown [id number] 1987 Unknown [id number] Social History Date Type Detail Facility Start: 09-30-2018 End: 03-18-2023 Tobacco smoking status NHIS Current every day smoker [facility] History of tobacco use Cigarette Smoker [place] Start: 09-30-2018 End: 03-18-2023 Cigarettes smoked current (pack per day) - Reported [place], [place] Start: 09-30-2018 End: 03-18-2023 Alcohol intake No [facility] Start: 1987 Sex Assigned At Not on file [place] Start: 04-07-2019 End: 04-11-2022 Alcohol intake Current non-drinker of alcohol (finding) [place], [place] Start: 02-19-2019 [place], [place] Exposure to SARS-CoV -2 (event) Unable to assess [place] Start: 11-03-2019 End: 08-29-2021 Tobacco use and exposure Never used [place], [place] Start: 08-11-2021 End: 04-11-2022 Exposure to SARS-CoV-2 (event) Not sure [place] Start: 08-04-2020 End: 04-09-2022 History 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 [employer] Phone: Start: 08-04-2020 End: 04-09-2022 History 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 [employer] Phone: Start: 1987 Sex Assigned At Female [facility] Start: 10-18-2021 End: 12-16-2021 Exposure to SARS-CoV-2 (event) Yes [facility] Start: 04-09-2022 History SDOH Transpo rt Non-Med 2 [employer] Work Phone: Start: 10-13-2017 Tobacco smoking status Heavy t obacco smoker (finding) [facility] Medical Equipment Procedure Code Equipment Code Equipment Origin al Text Equipment Identifier Dates fluorescein ophthalmic strip 1 mg [id number] Start: 09-30-2018 End: 09-30-2018 Clinical Notes 08-21-2021 to 01-11-2023 InstructionsAttachments Note Date & Type Note Facility 01-11-2023 Evaluation + Plan note Diagnostic Tests PendingHIV Screen 4th Generation wRfx 01/11/23Hepatitis B Surface Antigen 01/11/23RPR with Conf Rfx 01/11/23Rubella Antibody IgG 01/11/23HCV Antibody RFX to Quant PCR 01/11/23Urine Culture 01/11/23 [facility] 08-21-2021 Hospital Discharg e instructions Penny Ritter MD - 08/21/2021 Return to the Emergency Department immediately if you develop worsening symptoms, or you have any other concerns. Please follow up with your family doctor in 1-2 days. The following attachments cannot be sent through Care Everywhere.Gastritis (Uzbek)documented in this encounter [facility] [employer] Phone: Evaluation note Diagnosis Heart palpitations Palpitations documented in this encounter [employer] Phone: evaluation note* Diagnosis Dental abscess- Primary Periapical abscess without sinus documented in this encounter [employer] Phone: [email or web address] note* Diagnosis Acute gastritis without hemorrhage, unspecified gastritis type- Primary documented in this encounter [employer] Phone: [email or web address] note* Diagnosis Cellulitis of trunk, unspecified site of trunk- Primary documented in this encounter [employer] Phone: [email or web address] note* Diagnosis Bitten by mouse, initial encounter- Primary documented in this encounter [employer] Phone: evaluation note* Diagnosis Tonsillitis with exudate Acute tonsillitis documented in this encounter [employer] Phone: Hospital course Narrative No data available for this section [facility]* Attachments The following attachments cannot be sent through Care Everywhere. * Tooth: Abscessed (Uzbek) [facility]: Hospital Discharge instructions* Attachments The following attachments cannot be sent through Care Everywhere. * [facility] (Uzbek) [facility] Work Phone: Hospital Discharge instructions* Attachments The following attachments cannot be sent through Care Everywhere. * Bites: [facility] (Uzbek) [facility] Work Phone: Hospital Discharge instructions No data available for this section [facility] Hospital[facility]ructionsNot on filedocumented in this encounter [facility] note No data available for this section [facility] Summary Purpose Family History No Family History Records FoundNo Family History Records FoundNo Family History Records FoundNo Family History Records FoundNo Family History Records Found No data available for this section No data available for this section No data available for this section No Family History Records FoundNo Family History Records Found Advance Directives Documents on File Type Date Recorded Patient Nutrition Services Assistant Expl anation Advance Directives and Living Will Power of Mailroom Coordinator Documents on File Type Date Recorded Patient Nutrition Services Assistant Expl anation Advance Directives and Living Will Power of Mailroom Coordinator Documents on File Type Date Recorded Patient Nutrition Services Assistant Expl anation ACP-Advance Directive ACP-Power of Mailroom Coordinator Latest Code Status on File Code Status Date Activated Date Inactivated Comments Full Code 11/02/2019 12:26 PM Full Code 11/02/2019 7:35 AM 11/02/2019 12:26 PM Latest Code Status on File Code Status Date Activated Date Inactivated Comments Full Code 11/02/2019 12:26 PM 11/04/2019 3:22 PM Documents on File Type Date Recorded Patient Nutrition Services Assistant Expl anation ACP-Advance Directive ACP-Power of Mailroom Coordinator Latest Code Status on File Code Status [...] * LEEP (LOOP ELECTROSURGICAL EXCISION PROCEDURE): POST-OP (GEORGIAN) * Coronavirus Disease (COVID-19): General Info (Uzbek) documented in this encounter Assessments Diagnosis Pain [...] WEEKS SINGLE OR FIRST GESTATION Rj Aguilar, [address] [place] [address] Status Reason Specialty Diagnoses / Procedures Referre d By Contact Referred To Contact Open Radiology Diagnoses Amenorrhea Procedures US OB Transvaginal Rj Aguilar DO [address] [place] [address] Status Reason Specialty Diagnoses / Procedures Referre d By Contact Referred To Contact Open Radiology Diagnoses Amenorrhea Procedures US OB TRANSVAGINAL Rj Aguilar, [address] [place] [address] Status Reason Specialty Diagnoses / Procedures Referred By Contact Referred To Contact Not Required - Recondo Radiology Diagnoses Amenorrhea Procedures US OB 14 Plus Weeks Single or First Gestation HC US OB GREATER THAN 14 WEEKS SINGLE FETUS Rj Aguilar, [address] [place] [address] Status Reason Specialty Diagnoses / Procedures Referre d By Contact Referred To Contact Closed Diagnoses Heart palpitations Procedures Holter Monitor 48 Hour Nikki Mcgovern PA-C [address] [place] [address] History of Present Illness * Rj Aguilar, [...] Gynecology History & Physical Pt Name: Krysta Evangelista Date of : 1985 Estimated Date [...] 50 mL IVPB (duplex), 2 g, Intravenous, Chute Worker to OR, Rj Diaz DO meperidine (DEMEROL) [...] Once PRN, Junior Fuentes MD 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 Past Surgical History: Past Surgical History: Procedure Laterality Date SECTION 2013 SECTION N/A 11/02/2019 SECTION performed by Rj Aguilar DO at [facility] L&D OR COLONOSCOPY 09/03/14 w/bx Social History: [...] female with IWONA 2 [facility] documented in this encounter Additional Source Comments INFORMATION SOURCE (unrecogn ized section and content) DATE CREATED AUTHOR 08/21/2017 [employer] DATE CREATED AUTHOR AUTHOR'S ORGANIZ ATION 10/01/2018 [facility] DATE CREATED AUTHOR AUTHOR'S ORGANIZ ATION 09/01/2021 [facility] DATE CREATED AUTHOR AUTHOR'S ORGANIZ ATION 12/04/2021 [facility] DATE CREATED AUTHOR AUTHOR'S ORGANIZ ATION 07/31/2022 [facility] DATE CREATED AUTHOR AUTHOR'S ORGANIZ ATION 01/31/2023 Gallego Syed [facility] DATE CREATED AUTHOR AUTHOR'S ORGANIZ ATION 03/12/2023 [facility] EPIC Reason for Visit (unrecogniz [...] GESTATION Rj Aguilar DO [address] [place] [address] Status Reason Specialty Diagnoses / Procedures Referred By Contact Referred To Contact Not Required - Recondo Radiology Diagnoses Amenorrhea Procedures US OB 14 Plus Weeks Single or First Gestation HC US OB GREATER THAN 14 WEEKS SINGLE FETUS Rj Aguilar DO [address] [place] [address] Reason Comments Other Scheduled C/S Status Reason Specialty Diagnoses / Procedures Referre d By Contact Referred To Contact Diagnoses Status post repeat low transverse section repeat Procedures UT DELIVERY ONLY SECTION Rj Aguilar DO [address] [place] [address] [facility] Status Reason Specialty Diagnoses / Procedures Re ferred By Contact Referred To Contact Diagnoses HGSIL Pap smear of anus HGSIL Procedures UT COLPOSCOPY,ENTIRE VAGINA LOOP ELECTROSURGICAL EXCISION PROCEDURE COLPOSCOPY, ECC (PAT ON ADMIT) RAPID COVID Rj Aguilar DO [address] [place] [address] [facility] Status Reason Specialty Diagnoses / Procedures Referre d By Contact Referred To Contact Closed Diagnoses Heart palpitations Procedures Holter Monitor 48 Hour Nikki Mcgovern PA-C [address] [place] [address] Reason Comments Dental Pain right upper gum [...] 28 capsule 0 10/28/2021 11/04/2021 nystatin (MYCOSTATIN) 879704 UNIT/GM powder Apply topically 2 times daily [...] IMG ONCE PRN, 1 dose, Starting on Sat08/21/21 at 0214, Until Discontinued, Other 0226 (Given - Provid er: Jen Rivasi) PRN Medication Order 10/26/2021 10/27/2021 10/28/2021 iopamidol [...] Care Teams (unrecognized sec tion and content) Telephone Answerer Relationship Specialty Start Date End Date Nikki Mcgovern PA-C PCP - General 03/29/15 Telephone Answerer Relationship Specialty Start Date End Date Nikki Mcgovern PA-C PCP - General 03/29/15 Telephone Answerer Relationship Specialty Start Date End Date Nikki Mcgovern PA-C PCP - General 03/29/15 Telephone Answerer Relationship Specialty Start Date End Date Nikki Mcgovern PA-C PCP - General 03/29/15 FOR RECORDS [...] BE BASED ON THE PRIMARY CLINICAL RECORDS. [facility] [employer] provides no warranty or guarantee of the accuracy or completeness of information in this document.
[2023-03-20 10:45] VITALS: BP 113/64; PULSE 89
--- OUTSIDE RECORDS SUMMARY | 2023-03-23 07:43 | XMS_ITS | CCD ---
Author Name Unknown Address [address] [place] [address] Organization [facility] Care Team Providers Care Client Administrator Name Role Phone Nikki Mcgovern Primary Care [...] Drug Allergy 2 Nausea And Vomiting, Headache [email or web address] Phone: (3 sources) traMADol Drug Allergy 2 [employer] Phone: (1 source) No Known Medication Allergies; Translations: [No Known Medication Allergies] Propensity to adverse reactions (disorder) [facility] Repository Medications Current Medications Medication Drug Class(es) [...] Pain - Moderate, 30 tab(s), Refill(s) 0, [facility] Start Date: 01/22/17 Status: Ordered albuterol HFA [...] BID, # 60 cap(s), Refills(s) 0, Pharmacy: [facility]45 Start Date: 01/22/17 Status: Ordered Ethinyl Estradiol [...] Refill(s) 5, Start 3 weeks after delivery, [facility] 5309 Start Date: 01/22/17 Status: Ordered [...] Mild, # 40 tab(s), Refills(s) 0, Pharmacy: [facility] 5[facility] Start Date: 01/22/17 Status: Ordered [...] sources) Polyene Antifungal Start: 10-28-2021 nystatin (MYCOSTATIN) [id number] UNIT/GM powder Apply topically 2 times daily [...] Give after delivery of placenta. Prenat w/o B-UkStr-CDU-FA-DHA (PRENAISSANCE PLUS) 28-1-250 MG CAPS (4 sources) Start: 06-03-2019 take 1 tablet by mouth once daily Prenat w/o C-BlEqm-QAS-FA-DHA (PRENAISSANCE PLUS) 28-1-250 MG CAPS Take 1 tablet by mouth daily 30 capsule 11 06/03/2019 Suspended Start: 06-03-2019 take 1 tablet by mario th once daily Prenat w/o P-MyRni-THZ-FA-DHA (PRENAISSANCE PLUS) 28-1-250 MG CAPS Take 1 [...] tablet 3 04/09/2017 09/30/2018 Discontinued (LIST CLEANUP) [id number]-[id number]-Gkkamu (PRENATE AM PO) (1 source) End: 09-30-2018 Tr-F4-[id number]-XM-Aqjpdn (PRENATE AM PO) Take by mouth 0 09/30/2018 Discontinued (LIST CLEANUP) Multivitamins with Folic Acid 1 mg oral tablet (3 sources) Start: 07-26-2016 Multivitamins with Folic Acid 1 mg oral tablet 1 tab(s), Oral, Daily, 100 tab(s), Refill(s) 0, [facility] 5301 Start Date: 07/26/16 Status: Ordered 50 ml [...] Extremities Normal Diaphragm Normal ACI Normal Normal [facility] CHEMISTRYOrdered By: SYSTEM SYSTEM on 01-29-2023 Glucose [Mass/Vol] 157 mg/dL High 55 - 140 mg/dL Remisol Chem Consent for Treatmenton 01-11 Consent for Treatment [id number] .00TIFF [facility] Consent for Treatment [id number] .00TIFF [facility] Gest Scr Glu 1 Hron 01-30-20 Glucose [Mass/Vol] 157 mg/dL High 55-140 [facility] Comment on above: Performed By: #### 2 [id number], 52341876, 550632336, 4724391966, 609421148, 259140062, 7006308, 1498619, 3940049 #### [facility] Laboratory [address] [place] [address] Glucose 1h post 50g loadon 1 04-01-2022 Glucose, 1 hr PP 50GM dose 157 [facility] Physician Orderon 01-29-2023 Physician Order [id number]# 1.00TIFF [facility] Physician Orderon 01-28-2023 Physician Order [id number]#1 .00TIFF [facility] C Urineon 01-13-2023 Bacteria identified [...] Locations R1: This test was performed at: [facility], [address] [place] [address], [address]- , , Normal [facility] Comment on above: Performed By: #### 2 [id number], 82896975, 390988290, 7137159833, 282383756, 783942039, 5670720, 0045848, 7489312 #### [facility] Laboratory [address] [place] [address] .Interpretation:on HCV Ab IA Ql Comment Invalid Interpretation Code [facility] Comment on above: Result Comment: Not infected with HCV unless early or acute infection is suspected (which may be delayed in an immunocompromised individual), or other evidence exists to indicate HCV infection. Performed at: [id number] [place], [place] [id number] [phone] PhD Mariama Zaman Performed By: #### 2 [id number], 92896269, 338888730, 5214366447, 154419166, 681035335, 5567423, 6785381, 8067374 #### [facility] Laboratory [address] [place] [address] 34577 HCV Antibody RFX to Quant PC Johnny 01-12-2023 HCV IgG IA Ql Non-Reactive Invalid Interpretation Code Non Reactive [facility] Comment on above: Result Comment: Perf ormed at: [address] [id number] [id number] PhD Mariama Zaman Performed By: #### 2 [id number], 72897050, 623255022, 8142805406, 775939077, 723757095, 4421942, 9960259, 5527059 #### [facility] [address] [place] [address] 92445 HIV Screen 4th Generation wR fxon 01-12-2023 HIV 1+2 Ab+HIV1 p24 Ag IA Ql Non-Reactive Invalid Interpretation Code Non Reactive [facility] Comment on above: Result Comment: HIV Negative HIV-1/HIV-2 antibodies and HIV-1 p24 antigen were NOT detected. There is no laboratory evidence of HIV infection. Performed at: [address] [id number] [phone] PhD Mariama Zaman Performed By: #### 2 [id number], 86941964, 257153411, 7021300269, 328069072, 658916070, 3543574, 2061739, 2190960 #### [facility] [address] [place] [address] Hep Bs Agon 01-12-2023 HBV surface Ag IA Ql Negative Invalid Interpretation Code Negative [facility] Comment on above: Result Comment: Perf ormed at: [address] [id number] [id number] PhD Mariama Zaman Performed By: #### 2 [id number], 71504150, 581795132, 1702469946, 006990469, 552920295, 1149650, 9266811, 9619206 #### [facility] Laboratory [address] [place] [address] RPR with Conf Rfxon 01-13-20 23 Reagin Ab RPR Ql (S) Non-Reactive Invalid Interpretation Code Non Reactive [facility] Comment on above: Result Comment: Perf ormed at: [address] [id number] [phone] PhD Mariama Zaman Performed By: #### 2 [id number], 30892705, 360614666, 8669856202, 970330325, 187476397, 6477922, 1105088, 5431951 #### [facility] [address] [place] [address] Rubella IgGon 01-12-2023 Rubella virus IgG Qn (S) 5.68 [IU]/mL Invalid Interpretation Code Immune >0.99 [facility] Comment on above: Result Comment: Non- immune <0.90 Equivocal 0.90 - 0.99 Immune >0.99 Performed at: [address] [id number] PhD Mariama Zaman Performed By: #### 2 [id number], 64182627, 199092256, 3458636554, 553943396, 294175232, 7256198, 1798650, 8602153 #### [facility] [address] [place] [address] ABO/Rhon 01-11-2023 ABO/Rh Positive Invalid Interpretation Code [facility] Comment on above: Performed By: #### 2 [id number], 71351344, 788197965, 1548924925, 500544885, 444798348, 8168380, 7178970, 4752464 #### [facility] [address] [place] [address] ABSCon 01-11-2023 ABSC Gel Interp Negative Normal [facility] Comment on above: Performed By: #### 2 158318284, 05494746, 323379113, 1672528708, 364378715, 392122619, 2558374, 9151235, 9536376 #### [facility] [address] [place] [address] BLOOD BANKOrdered By: Dylan Lemons on 01-11-2023 ABO/Rh Interp Positive Invalid Interpretation Code [facility] BB Subsection ABSC Gel Interp Negative (01/11/23 10:00 AM) Normal [facility] BB Subsection CBC w/IndicesOrdered By: López Jorgensen on 01-11-2023 Erythrocyte distribution width (RBC) [Ratio] 13.4 % Normal 10.9-14.2 [facility] Comment on above: Performed By: #### 2 [id number], 78416880, 145113546, 1930500389, 334919271, 418496350, 0230358, 7531179, 0022864 #### [facility] [address] [place] [address] Hematocrit (Bld) [Volume fraction] 34.4 % [facility] Comment on above: Performed By: #### 2 [id number], 83310274, 285474374, 3400107712, 949998658, 041288419, 0364491, 6322111, 5107701 #### [facility] [address] [place] [address] Hemoglobin (Bld) [Mass/Vol] 11.7 g/dL [facility] Comment on above: Performed By: #### 2 680380887, 37609069, 961771230, 5056787727, 396538765, 435353973, 4744620, 6163518, 9708195 #### [facility] [address] [place] [address] MCH (RBC) [Entitic mass] 31.7 pg Normal 27.0-34.0 [facility] Comment on above: Performed By: #### 2 133636762, 16293951, 900556181, 1340587554, 328374436, 734485531, 6752457, 6613650, 7238593 #### [facility] [address] [place] [address] MCHC (RBC) [Mass/Vol] 33.9 g/dL Normal 31.4-36.0 [facility] Comment on above: Performed By: #### 2 [id number], 67555822, 363666446, 8614144421, 518555848, 164408698, 3726521, 1318938, 9439050 #### [facility] [address] [place] [address] MCV (RBC) [Entitic vol] 93.3 fL Normal 80.0-100.0 [facility] Comment on above: Performed By: #### 2 [id number], 43965808, 946892107, 0807285773, 077907228, 796970873, 1073194, 6605157, 9760670 #### [facility] [address] [place] [address] Platelet mean volume (Bld) [Entitic vol] 8.0 fL Normal 6.4-10.8 [facility] Comment on above: Performed By: #### 2 953288876, 00756891, 899624367, 3807295756, 413580792, 752136423, 1905164, 3128906, 8468058 #### [facility] [address] [place] [address] Platelets (Bld) [#/Vol] 171.0 E9/L Normal 150.0-500.0 [facility] Comment on above: Performed By: #### 2 925276407, 07749403, 386646693, 3490485244, 544231448, 659774603, 8028291, 7187678, 8704949 #### [facility] [address] [place] [address] RBC (Bld) [#/Vol] 3.7 E12/L Low 4.3-5.9 [facility] Comment on above: Performed By: #### 2 818591891, 42591117, 172311477, 1208299658, 025751468, 916502168, 7986293, 0639248, 6199600 #### [facility] [address] [place] [address] WBC corrected for nucl RBC Auto (Bld) [#/Vol] 11.7 E9/L High 4.0-11.0 [facility] Comment on above: Performed By: #### 2 703329129, 32231766, 174633408, 3168661241, 785362025, 289047344, 6934844, 4284552, 3514502 #### [facility] [address] [place] [address] CBC without diffon Platelets (Bld) [#/Vol] 171 10*3/uL [facility] Consent for Treatmenton Consent for Treatment [id number] .00TIFF Normal [facility] HIV 1&2 AB/AG Screen (P24 AG )on 01-11-2023 HIV 1&2 AB/AG Non-Reactive [facility] Hepatitis B surface antigeno n 01-11-2023 Hepatitis B Surface Antigen Negative [facility] Hepatitis C(HCV) Ab w/ Refle x to PCRon 01-11-2023 HCV Ab Ql (S) Non-Reactive [facility] [id number] By: Liliana Dumont on 01-11-2023 HbA1c (Bld) [Mass fraction] 4.9 % Normal <=5.9 [facility] Comment on above: Performed By: #### 2 [id number], 01319800, 754803018, 9760541841, 584185019, 536906383, 3148801, 7481258, 7866211 #### [facility] [address] [place] [address] No Panel Informationon 01-11 [facility] Physician Orderon 01-11-2023 Physician Order [id number] .00TIFF Normal [facility] Rubella IGG immune statuson 01-11-2023 Rubella immune IgG 5.68 [facility] Syphilis Total(Unknown Syphi lis Status)on 01-11-2023 Syphilis Non-Reactive [facility] TSHon 01-11-2023 Thyroid Stimulating (3Rd Generation) Hormone/ Tsh 1.30 [facility] TSHOrdered By: SYSTEM SYSTEM on 01-11-2023 TSH Qn 1.30 m[IU]/L Normal 0.34-5.60 [facility] Remisol Comment on above: Performed By: #### 2 [id number], 41710965, 212405589, 9635077801, 539268075, 974817151, 7637581, 5912681, 1995388 #### [facility] [address] [place] [address] Type and screenon 01-11-2023 Abo/Rh(D) Positive NoDaysOff [facility] Basic Metabolic Panelon 06-2 Calcium [Mass/Vol] 9.1 mg/dL Normal 8.5-9.9 [facility] Comment on above: Performed By: #### C BCWD #### [facility] [address] [place] [address] Chloride [Moles/Vol] 105 mmol/L Normal 95-107 [facility] Comment on above: Performed By: #### C BCWD #### [facility] [address] [place] [address] CO2 [Moles/Vol] 22 mmol/L Normal 20-31 [facility] Comment on above: Performed By: #### C BCWD #### [facility] [address] [place] [address] Creatinine [Mass/Vol] 0.59 mg/dL Normal 0.50-0.90 [facility] Comment on above: Performed By: #### C BCWD #### [facility] [address] [place] [address] GFR >60.0 Normal >60 [facility] Comment on above: Result Comment: Christina atric [...] secretion. Performed By: #### C BCWD #### [facility] [address] [place] [address] Glucose [Mass/Vol] 110 mg/dL Critically high 70-99 M [facility] Comment on above: Performed By: #### C BCWD #### [facility] [address] [place] [address] Potassium [Moles/Vol] 4.0 mmol/L Normal 3.4-4.9 [facility] Comment on above: Performed By: #### C BCWD #### [facility] [address] [place] [address] Sodium [Moles/Vol] 139 mmol/L Normal 135-144 [facility] Comment on above: Performed By: #### C BCWD #### [facility] [address] [place] [address] Urea nitrogen [Mass/Vol] 12 mg/dL Normal 6-20 [facility] Comment on above: Performed By: #### C BCWD #### [facility] [address] [place] [address] Anion gap [Moles/Vol] 12 mmol/L Normal 9-15 [facility] Comment on above: Performed By: #### C BCWD #### [facility] [address] [place] [address] CBC With Platelet and Differ entialon 07-31-2022 Abs Imm Granulocytes 0.0 K/uL Normal [facility] Comment on above: Performed By: #### C BCWD #### [facility] [address] [place] [address] Basophils (Bld) [#/Vol] 0.0 10*3/uL Normal 0.0-0.1 [facility] Comment on above: Performed By: #### C BCWD #### [facility] [address] [place] [address] Basophils/100 WBC (Bld) 0.4 % Normal 0.1-1.2 [facility] Comment on above: Performed By: #### C BCWD #### [facility] [address] [place] [address] Eosinophils (Bld) [#/Vol] 0.2 10*3/uL Normal 0.0-0.4 [facility] Comment on above: Performed By: #### C BCWD #### [facility] [address] [place] [address] Eosinophils/100 WBC (Bld) 2.6 % Normal 0.7-5.8 [facility] Comment on above: Performed By: #### C BCWD #### [facility] [address] [place] [address] Erythrocyte distribution width (RBC) [Ratio] 12.6 % Normal 11.7-14.4 [facility] Comment on above: Performed By: #### C BCWD #### [facility] [address] [place] [address] Hematocrit (Bld) [Volume fraction] 39.6 % Normal 37.0-47.0 [facility] Comment on above: Performed By: #### C BCWD #### [facility] [address] [place] [address] Hemoglobin (Bld) [Mass/Vol] 13.5 g/dL Normal 11.2-15.7 [facility] Comment on above: Performed By: #### C BCWD #### [facility] [address] [place] [address] Imm Granulocytes 0.3 % Normal [facility] Comment on above: Performed By: #### C BCWD #### [facility] [address] [place] [address] Lymphocytes (Bld) [#/Vol] 1.8 10*3/uL Normal 1.2-3.7 [facility] Comment on above: Performed By: #### C BCWD #### [facility] [address] [place] [address] Lymphocytes/100 WBC (Bld) 25.0 % Normal [facility] Comment on above: Performed By: #### C BCWD #### [facility] [address] [place] [address] MCH (RBC) [Entitic mass] 31.9 pg Normal 25.6-32.2 [facility] Comment on above: Performed By: #### C BCWD #### [facility] [address] [place] [address] MCHC 34.1 % Normal 32.2-35.5 [facility] Comment on above: Performed By: #### C BCWD #### [facility] [address] [place] [address] MCV (RBC) [Entitic vol] 93.6 fL Normal 79.4-94.8 [facility] Comment on above: Performed By: #### C BCWD #### [facility] [address] [place] [address] Monocytes (Bld) [#/Vol] 0.4 10*3/uL Normal 0.2-0.9 [facility] Comment on above: Performed By: #### C BCWD #### [facility] [address] [place] [address] Monocytes/100 WBC (Bld) 5.7 % Normal 4.7-12.5 [facility] Comment on above: Performed By: #### C BCWD #### [facility] [address] [place] [address] Neutrophils (Bld) [#/Vol] 4.9 10*3/uL Normal 1.6-6.1 [facility] Comment on above: Performed By: #### C BCWD #### [facility] [address] [place] [address] Neutrophils/100 WBC (Bld) 66.0 % Normal 34.0-71.1 [facility] Comment on above: Performed By: #### C BCWD #### [facility] [address] [place] [address] Platelets (Bld) [#/Vol] 193 10*3/uL Normal 182-369 [facility] Comment on above: Performed By: #### C BCWD #### [facility] [address] [place] [address] RBC (Bld) [#/Vol] 4.23 10*6/uL Normal 3.93-5.22 [facility] Comment on above: Performed By: #### C BCWD #### [facility] [address] [place] [address] WBC (Bld) [#/Vol] 7.4 10*3/uL Normal 4.0-10.0 [facility] Comment on above: Performed By: #### C BCWD #### [facility] [address] [place] [address] UR HCG Qualitativeon 023 Beta HCG ( test) Ql (U) Negative Normal Detects HC [facility] Comment on above: Performed By: #### C BCWD #### [facility] [address] [place] [address] Urinalysis, reflex to cultur minoo 07-31-2022 Urine Reflexed to Culture Not Indicated Normal [facility] Comment on above: Performed By: #### U AR #### [facility] [address] [place] [address] Bilirubin Ql (U) Negative Normal Negative [facility] Comment on above: Performed By: #### U AR #### [facility] [address] [place] [address] Clarity (U) Clear Normal Clear [facility] Comment on above: Performed By: #### U AR #### [facility] [address] [place] [address] Color (U) Yellow Normal Straw/Vieques [facility] Comment on above: Performed By: #### U AR #### [facility] [address] [place] [address] Glucose Ql (U) Negative Normal Negative [facility] Comment on above: Performed By: #### U AR #### [facility] [address] [place] [address] Hemoglobin Ql (U) Large Normal Negative [facility] Comment on above: Performed By: #### U AR #### [facility] [address] [place] [address] Ketones Ql (U) Negative Normal Negative [facility] Comment on above: Performed By: #### U AR #### [facility] [address] [place] [address] Leukocyte esterase Test strip Ql (U) Negative Normal Negative [facility] Comment on above: Performed By: #### U AR #### [facility] [address] [place] [address] Nitrite Ql (U) Negative Normal Negative [facility] Comment on above: Performed By: #### U AR #### [facility] [address] [place] [address] pH (U) 5.5 [pH] Normal 5.0-9.0 [facility] Comment on above: Performed By: #### U AR #### [facility] [address] [place] [address] Protein Ql (U) Negative Normal Negative [facility] Comment on above: Performed By: #### U AR #### [facility] [address] [place] [address] Specific gravity (U) [Rel density] 1.015 Normal 1.005-1.03 [facility] Comment on above: Performed By: #### U AR #### [facility] [address] [place] [address] Urobilinogen Qn (U) 0.2 {Ginger'U}/dL Normal < 2.0 [facility] Comment on above: Performed By: #### U AR #### [facility] [address] [place] [address] Urine Microscopicon 08-01-19 23 Epithelial cells LM Ql (Urine sed) 3-5 Normal [facility] Comment on above: Performed By: #### U KAREEM #### [facility] [address] [place] [address] Urine Bacteria FEW Abnormal Negative [facility] Comment on above: Performed By: #### U KAREEM #### [facility] [address] [place] [address] Urine RBC 5-10 Abnormal 0-2 [facility] Comment on above: Performed By: #### U KAREEM #### [facility] [address] [place] [address] Urine WBC 0-2 Normal 0-5 [facility] Comment on above: Performed By: #### U KAREEM #### [facility] [address] [place] [address] Culture, Throaton 04-11-2022 Culture, Throat ORDER#: [id number] ORDERED BY: LILIANA CARROLL SOURCE: Throat Throat COLLECTED: 04/11/22 17:53 ANTIBIOTICS AT [facility].: RECEIVED : 04/11/22 21:00 Culture, Throat FINAL 04/14/22 10:27 Cult,Throat: Oral to, negative for Group A Strep and other beta Cult,Throat: hemolytic streptococ[place] [address] Normal [facility] Comment on above: Performed By: #### C BCWD #### [facility] [address] [facility] [place] [address] XR SHOULDER LEFT (MIN 2 VIEW S)on [...] Vitor Riojas MD 11/29/21 Final result Normal [facility] Bacterial susceptibility panel KAREEM (Isol) ORDER#: [id number] ORDERED BY: SPRING OROZCO SOURCE: Incision COLLECTED: 10/28/21 16:45 ANTIBIOTICS AT [facility].: RECEIVED : 10/28/21 22:09 Culture, Wound Aerobic, Anaerobic FINAL 11/03/21 07:50 Direct Exam: NO NEUTROPHILS SEEN Direct Exam: NO BACTERIA SEEN Cult,Aerobe/Anaerobe: Mixed skin to Cult,Aerobe/Anaerobe: No anaerobic organisms isolated at 5 days. Performed at [address] [place] [address] ([phone] Acinetobacter species LIGHT GROWTH Acinetobacter baumannii LIGHT GROWTH Acineto sp. A. baumannii ANTIBIOTICS KAREEM Interp KAREEM Interp Ampicillin/Sulbactam <=2 S >=32 R Ceftriaxone 16 I 16 I Ciprofloxacin <=0.25 S <=0.25 S Gentamicin <=1 S <=1 S Tobramycin <=1 S <=1 S S=SUSCEPTIBLE I=INTERMEDIATE R=RESISTANT Normal [facility] Comment on above: Performed By: #### 5 0545-3 #### [facility] [address] [place] [address] Bacterial susceptibility panel KAREEM (Isol) ORDER#: [id number] ORDERED BY: SPRING OROZCO SOURCE: Incision COLLECTED: 10/28/21 16:45 ANTIBIOTICS AT [facility].: RECEIVED : 10/28/21 22:09 Culture, Wound Aerobic, Anaerobic PRELIM 11/03/21 07:15 Direct Exam: NO NEUTROPHILS SEEN Direct Exam: NO BACTERIA SEEN Cult,Aerobe/Anaerobe: Mixed skin to Cult,Aerobe/Anaerobe: No anaerobic organisms isolated at 5 days. Performed at [address] [address] ([phone] Acinetobacter species LIGHT GROWTH Acineto sp. ANTIBIOTICS KAREEM Interp Ampicillin/Sulbactam <=2 S Ceftriaxone 16 I Ciprofloxacin <=0.25 S Gentamicin <=1 S Tobramycin <=1 S S=SUSCEPTIBLE I=INTERMEDIATE R=RESISTANT Normal [facility] Comment on above: Performed By: #### C BCWD #### [facility] [address] [place] [address] CBC With Platelet and Differ entialon 10-28-2021 Abs Imm Granulocytes 0.0 K/uL Normal [facility] Comment on above: Performed By: #### C BCWD #### [facility] [address] [place] [address] Basophils (Bld) [#/Vol] 0.0 10*3/uL Normal 0.0-0.1 [facility] Comment on above: Performed By: #### C BCWD #### [facility] [address] [place] [address] Basophils/100 WBC (Bld) 0.1 % Normal 0.1-1.2 [facility] Comment on above: Performed By: #### C BCWD #### [facility] [address] [place] [address] Eosinophils (Bld) [#/Vol] 0.3 10*3/uL Normal 0.0-0.4 [facility] Comment on above: Performed By: #### C BCWD #### [facility] [address] [place] [address] Eosinophils/100 WBC (Bld) 3.1 % Normal 0.7-5.8 [facility] Comment on above: Performed By: #### C BCWD #### [facility] [address] [place] [address] Erythrocyte distribution width (RBC) [Ratio] 12.8 % Normal 11.7-14.4 [facility] Comment on above: Performed By: #### C BCWD #### [facility] [address] [place] [address] Hematocrit (Bld) [Volume fraction] 40.9 % Normal 37.0-47.0 [facility] Comment on above: Performed By: #### C BCWD #### [facility] [address] [place] [address] Hemoglobin (Bld) [Mass/Vol] 13.6 g/dL Normal 11.2-15.7 [facility] Comment on above: Performed By: #### C BCWD #### [facility] [address] [place] [address] Imm Granulocytes 0.2 % Normal [facility] Comment on above: Performed By: #### C BCWD #### [facility] [address] [place] [address] Lymphocytes (Bld) [#/Vol] 1.8 10*3/uL Normal 1.2-3.7 [facility] Comment on above: Performed By: #### C BCWD #### [facility] [address] [place] [address] Lymphocytes/100 WBC (Bld) 16.5 % Normal [facility] Comment on above: Performed By: #### C BCWD #### [facility] [address] [place] [address] MCH (RBC) [Entitic mass] 31.1 pg Normal 25.6-32.2 [facility] Comment on above: Performed By: #### C BCWD #### [facility] [address] [place] [address] MCHC 33.3 % Normal 32.2-35.5 [facility] Comment on above: Performed By: #### C BCWD #### [facility] [address] [place] [address] MCV (RBC) [Entitic vol] 93.4 fL Normal 79.4-94.8 [facility] Comment on above: Performed By: #### C BCWD #### [facility] [address] [place] [address] Monocytes (Bld) [#/Vol] 0.6 10*3/uL Normal 0.2-0.9 [facility] Comment on above: Performed By: #### C BCWD #### [facility] [address] [place] [address] Monocytes/100 WBC (Bld) 5.2 % Normal 4.7-12.5 [facility] Comment on above: Performed By: #### C BCWD #### [facility] [address] [place] [address] Neutrophils (Bld) [#/Vol] 7.9 10*3/uL Critically high 1.6-6.1 [facility] Comment on above: Performed By: #### C BCWD #### [facility] [address] [place] [address] Neutrophils/100 WBC (Bld) 74.9 % Critically high 34.0-71.1 [facility] Comment on above: Performed By: #### C BCWD #### [facility] [address] [place] [address] Platelets (Bld) [#/Vol] 192 10*3/uL Normal 182-369 [facility] Comment on above: Performed By: #### C BCWD #### [facility] [address] [place] [address] RBC (Bld) [#/Vol] 4.38 10*6/uL Normal 3.93-5.22 [facility] Comment on above: Performed By: #### C BCWD #### [facility] [address] [place] [address] WBC (Bld) [#/Vol] 10.6 10*3/uL Critically high 4.0-10.0 [facility] Comment on above: Performed By: #### C BCWD #### [facility] [address] [place] [address] CBC with Auto Differentialon 10-28-2021 Basophils (Bld) [#/Vol] 0.0 10*3/uL 0 - 0.1 K/uL [facility] [employer] Basophils/100 WBC (Bld) 0.1 % 0.1 - 1.2 % [facility] Eosinophils (Bld) [#/Vol] 0.3 10*3/uL 0 - 0.4 K/uL [facility] [employer] Eosinophils/100 WBC (Bld) 3.1 % 0.7 - 5.8 % [facility] Hematocrit (Bld) [Volume fraction] 40.9 % 37 - 47 % [facility] Hemoglobin (Bld) [Mass/Vol] 13.6 g/dL 11.2 - 15.7 g/dL [facility] Immature granulocytes (Bld) [#/Vol] 0.0 10*3/uL [facility] Immature granulocytes/100 WBC (Bld) 0.2 % [facility] Interpretation and review of laboratory results Abnormal [facility] Lymphocytes (Bld) [#/Vol] 1.8 10*3/uL 1.2 - 3.7 K/uL [facility] Lymphocytes/100 WBC (Bld) 16.5 % [facility] MCH (RBC) [Entitic mass] 31.1 pg 25.6 - 32.2 pg [facility] MCHC (RBC) [Mass/Vol] 33.3 % 32.2 - 35.5 % [facility] MCV (RBC) [Entitic vol] 93.4 fL 79.4 - 94.8 fL [facility] Monocytes (Bld) [#/Vol] 0.6 10*3/uL 0.2 - 0.9 K/uL [facility] Monocytes/100 WBC (Bld) 5.2 % 4.7 - 12.5 % [facility] Neutrophils Absolute 7.9 K/uL High 1.6 - 6 .1 K/uL [facility] Neutrophils/100 WBC (Bld) 74.9 % High 34 - 71.1 % [facility] Platelet distribution width (Bld) [Ratio] 12.8 % 11.7 - 14.4 % [facility] Platelets (Bld) [#/Vol] 192 10*3/uL 182 - 369 K/uL [facility] RBC (Bld) [#/Vol] 4.38 10*6/uL [facility] WBC (Bld) [#/Vol] 10.6 10*3/uL High 4 - 10 K/uL [facility] CT ABDOMEN PELVIS W IV CONTR Luc [...] Melodie Ocampo MD 10/28/21 Final result Normal [facility] CT ABDOMEN PELVIS W IV CONTR AST Additional Contrast? Noneon 10-28-2021 No acute abdominopelvic abnormality. [facility] RAD[facility] EXAMINATION: CT OF THE ABDOMEN AND [...] stranding or fluid at the surgical site. [facility] RADIOLOG[facility] Melodie Ocampo MD - 10/28/2021 EXAMINATION: [...] surgical site. IMPRESSION: No acute abdominopelvic abnormality. [email or web address] Phone: Radiology Study observation (narrative) [facility] [employer] Phone: CT ABDOMEN PELVIS W IV CONTR AST Additional Contrast? NoneOrdered By: Melodie Ocampo on 10-28-2021 [facility] Phone: Comprehensive Metabolic Pane l reflex Mgon 10-28-2021 Albumin [Mass/Vol] 4.4 g/dL Normal 3.5-4.6 [facility] Comment on above: Performed By: #### C MPX #### [facility] [address] [place] [address] ALP [Catalytic activity/Vol] 118 U/L Normal 40-130 [facility] Comment on above: Performed By: #### C MPX #### [facility] [address] [place] [address] ALT [Catalytic activity/Vol] 6 U/L Normal 0-33 [facility] Comment on above: Performed By: #### C MPX #### [facility] [address] [place] [address] Anion gap [Moles/Vol] 11 mmol/L Normal 9-15 [facility] Comment on above: Performed By: #### C MPX #### [facility] [address] [place] [address] AST [Catalytic activity/Vol] 8 U/L Normal 0-35 [facility] Comment on above: Performed By: #### C MPX #### [facility] [address] [place] [address] Bilirubin [Mass/Vol] 0.4 mg/dL Normal 0.2-0.7 [facility] Comment on above: Performed By: #### C MPX #### [facility] [address] [place] [address] Calcium [Mass/Vol] 9.7 mg/dL Normal 8.5-9.9 [facility] Comment on above: Performed By: #### C MPX #### [facility] [address] [place] [address] Chloride [Moles/Vol] 104 mmol/L Normal 95-107 [facility] Comment on above: Performed By: #### C MPX #### [facility] [address] [place] [address] CO2 [Moles/Vol] 23 mmol/L Normal 20-31 [facility] Comment on above: Performed By: #### C MPX #### [facility] [address] [place] [address] Creatinine [Mass/Vol] 0.60 mg/dL Normal 0.50-0.90 [facility] Comment on above: Performed By: #### C MPX #### [facility] [address] [place] [address] GFR >60.0 Normal >60 [facility] Comment on above: Result Comment: >60 mL/min/1.73m2 EGFR, calc. for ages 18 and older using the MDRD formula (not corrected for weight), is valid for stable renal function. Performed By: #### C MPX #### [facility] [address] [place] [address] GFR/1.73 sq M.predicted among blacks MDRD (S/P/Bld) [Vol rate/Area] mL/min/{1.73_m2} Normal >60 [facility] Comment on above: Result Comment: >60 mL/min/1.73m2 EGFR, calc. for ages 18 and older using the MDRD formula (not corrected for weight), is valid for stable renal function. Performed By: #### C MPX #### [facility] [address] [place] [address] Globulin (S) [Mass/Vol] 3.1 g/dL Normal 2.3-3.5 [facility] Comment on above: Performed By: #### C MPX #### [facility] [address] [place] [address] Glucose [Mass/Vol] 95 mg/dL Normal 70-99 [facility] Comment on above: Performed By: #### C MPX #### [facility] [address] [place] [address] Magnesium [Moles/Vol] 4.2 mmol/L Normal 3.4-4.9 [facility] Comment on above: Performed By: #### C MPX #### [facility] [address] [place] [address] Protein [Mass/Vol] 7.5 g/dL Normal 6.3-8.0 [facility] Comment on above: Performed By: #### C MPX #### [facility] [address] [place] [address] Sodium [Moles/Vol] 138 mmol/L Normal 135-144 [facility] Comment on above: Performed By: #### C MPX #### [facility] [address] [place] [address] Urea nitrogen [Mass/Vol] 14 mg/dL Normal 6-20 [facility] Comment on above: Performed By: #### C MPX #### [facility] [address] [place] [address] Comprehensive Metabolic Pane l w/ Reflex to MGon 10-28-2021 Albumin [Mass/Vol] 4.4 g/dL 3.5 - 4.6 g/dL [facility] ALP (Bld) [Catalytic activity/Vol] 118 U/L 40 - 130 U/L [facility] ALT [Catalytic activity/Vol] 6 U/L 0 - 33 U/L [facility] Anion gap [Moles/Vol] 11 mmol/L [facility] AST [Catalytic activity/Vol] 8 U/L 0 - 35 U/L [facility] Bilirubin [Mass/Vol] 0.4 mg/dL 0.2 - 0 .7 mg/dL [facility] Calcium [Mass/Vol] 9.7 mg/dL 8.5 - 9.9 mg/dL [facility] Chloride [Moles/Vol] 104 mmol/L [facility] CO2 [Moles/Vol] 23 mmol/L [facility] Creatinine [Mass/Vol] 0.6 mg/dL 0.5 - 0.9 mg/dL [facility] Free PSA/Total PSA [Mass fraction] 7.5 g/dL 6.3 - 8 g/dL [facility] GFR >60.0 60 - PINF [facility] Comment on above: >60 mL/min/1.73m2 EG FR, calc. for ages 18 and older using the MDRD formula (not corrected for weight), is valid for stable renal function. GFR Non- >60.0 60 - PINF [facility] Comment on above: >60 mL/min/1.73m2 EG FR, calc. for ages 18 and older using the MDRD formula (not corrected for weight), is valid for stable renal function. Globulin (S) [Mass/Vol] 3.1 g/dL 2.3 - 3.5 g/dL [facility] Glucose [Mass/Vol] 95 mg/dL 70 - 99 mg/dL [facility] Potassium reflex Magnesium 4.2 [facility] Sodium [Moles/Vol] 138 mmol/L [facility] Urea nitrogen (BldV) [Mass/Vol] 14 mg/dL 6 - 20 mg/dL [facility] Culture, Wound AerobicShen 10-28-2021 Culture, Wound Aerobic, Anaerobic ORDER#: [id number] ORDERED BY: SPRING OROZCO SOURCE: Incision COLLECTED: 10/28/21 16:45 ANTIBIOTICS AT [facility].: RECEIVED : 10/28/21 22:09 Culture, Wound Aerobic, Anaerobic PRELIM 11/01/21 08:12 Direct Exam: NO NEUTROPHILS SEEN Direct Exam: NO BACTERIA SEEN Cult,Aerobe/Anaerobe: GRAM NEGATIVE RODS Cult,Aerobe/Anaerobe: LIGHT GROWTH Cult,Aerobe/Anaerobe: Mixed skin to Cult,Aerobe/Anaerobe: No anaerobic organisms isolated at 3 days. Performed at [id number] [place] [address] ([phone] Normal [facility] Comment on above: Performed By: #### I CWAN #### [facility] [address] [place] [address] , Urineon 2 Beta HCG ( test) Ql (U) Negative Detects HCG level >20 MIU/mL [facility] UR HCG Qualitativeon 022 Beta HCG ( test) Ql (U) Negative Normal Detects HC [facility] Comment on above: Performed By: #### C BCWD #### [facility] [address] [place] [address] Urinalysis with Reflex to Cu ltureon 10-28-2021 Bilirubin Urine Negative Negative [facility] Blood, Urine Negative Negative [facility] Clarity, UA Clear Clear [facility] Color, UA Yellow Straw/Yellow [facility] Glucose, Ur Negative Negative mg/dL [facility] Ketones Ql (U) Negative Negative mg/dL [facility] Leukocyte esterase Test strip Ql (U) Negative Negative [facility] Nitrite, Urine Negative Negative [facility] pH, UA 5.5 5 - 9 [facility] Protein, UA Negative Negative mg/dL [facility] Specific [place], UA 1.015 1.005 - 1.03 [facility] Urine Reflex to Culture Not Indicated [facility] Urobilinogen, Urine 0.2 [facility] Urinalysis, reflex to cultur minoo 10-28-2021 Bilirubin Ql (U) Negative Normal Negative [facility] Comment on above: Performed By: #### U AR #### [facility] [address] [place] [address] Clarity (U) Clear Normal Clear [facility] Comment on above: Performed By: #### U AR #### [facility] [address] [place] [address] Color (U) Yellow Normal Straw/Vieques [facility] Comment on above: Performed By: #### U AR #### [facility] [address] [place] [address] Glucose Ql (U) Negative Normal Negative [facility] Comment on above: Performed By: #### U AR #### [facility] [address] [place] [address] Hemoglobin Ql (U) Negative Normal Negative [facility] Comment on above: Performed By: #### U AR #### [facility] [address] [place] [address] Ketones Ql (U) Negative Normal Negative [facility] Comment on above: Performed By: #### U AR #### [facility] [address] [place] [address] Leukocyte esterase Test strip Ql (U) Negative Normal Negative [facility] Comment on above: Performed By: #### U AR #### [facility] [address] [place] [address] Nitrite Ql (U) Negative Normal Negative [facility] Comment on above: Performed By: #### U AR #### [facility] [address] [place] [address] pH (U) 5.5 [pH] Normal 5.0-9.0 [facility] Comment on above: Performed By: #### U AR #### [facility] [address] [place] [address] Protein Ql (U) Negative Normal Negative [facility] Comment on above: Performed By: #### U AR #### [facility] [address] [place] [address] Specific gravity (U) [Rel density] 1.015 Normal 1.005-1.03 [facility] Comment on above: Performed By: #### U AR #### [facility] [address] [place] [address] Urine Reflexed to Culture Not Indicated Normal [facility] Comment on above: Performed By: #### U AR #### [facility] [address] [place] [address] Urobilinogen Qn (U) 0.2 {Ginger'U}/dL Normal < 2.0 [facility] Comment on above: Performed By: #### U AR #### [facility] [address] [place] [address] Allergen, Food, Comprehensiv e Profile 08-31-2021 Allergen, Food, Barley IgE <0.10 Normal [facility] Allergen, Food, Beef IgE <0.10 [facility] Allergen, Food, Cabbage <0.10 [facility] Allergen, Food, Carrot <0.10 [facility] Allergen, Food, Chicken <0.10 [facility] Allergen, Food, Codfish IgE <0.10 [facility] Allergen, Food, [place] IgE <0.10 [facility] Allergen, Food, Crab IgE <0.10 [facility] Allergen, Food, Egg White <0.10 Normal [facility] Allergen, Food, Grape IgE <0.10 [facility] Allergen, Food, Lettuce IgE <0.10 [facility] Allergen, Food, Milk (Cow) IgE <0.10 [facility] Allergen, Food, [place] <0.10 [facility] Allergen, Food, Oat IgE <0.10 [facility] Allergen, Food, [place] IgE <0.10 [facility] Allergen, Food, Peanut IgE <0.10 [facility] Allergen, Food, Pepper C. annuum IgE <0.10 [facility] Allergen, Food, Pork IgE <0.10 [facility] Comment on above: Result Comment: [facility] [address] [place] [address] ([phone] Allergen, Food, Potato <0.10 Normal [facility] Allergen, Food, Rice IgE <0.10 [facility] Allergen, Food, Belva IgE <0.10 Normal [facility] Allergen, Food, Shrimp IgE <0.10 Normal [facility] Allergen, Food, Soybean IgE <0.10 Normal [facility] Allergen, Food, Tomato IgE <0.10 Normal [facility] Allergen, Food, Tuna IgE <0.10 Normal [facility] Allergen, Food, Wheat IgE <0.10 Normal [facility] Comment on above: Result Comment: [...] even anaphylaxis. Immunoglobulin E 53 IU/mL Normal [facility] Comment on above: Result Comment: [facility] [address] [place], [place] [id number] ([phone] CBC With Platelet and Differ entialon 08-21-2021 Abs Imm Granulocytes 0.0 K/uL Normal [facility] Comment on above: Performed By: #### C BCWD #### [facility] [address] [place] [address] Basophils (Bld) [#/Vol] 0.0 10*3/uL Normal 0.0-0.1 [facility] Comment on above: Performed By: #### C BCWD #### [facility] [address] [place] [address] Basophils/100 WBC (Bld) 0.3 % Normal 0.1-1.2 [facility] Comment on above: Performed By: #### C BCWD #### [facility] [address] [place] [address] Eosinophils (Bld) [#/Vol] 0.2 10*3/uL Normal 0.0-0.4 [facility] Comment on above: Performed By: #### C BCWD #### [facility] [address] [place] [address] Eosinophils/100 WBC (Bld) 2.4 % Normal 0.7-5.8 [facility] Comment on above: Performed By: #### C BCWD #### [facility] [address] [place] [address] Erythrocyte distribution width (RBC) [Ratio] 12.6 % Normal 11.7-14.4 [facility] Comment on above: Performed By: #### C BCWD #### [facility] [address] [place] [address] Hematocrit (Bld) [Volume fraction] 41.7 % Normal 37.0-47.0 [facility] Comment on above: Performed By: #### C BCWD #### [facility] [address] [place] [address] Hemoglobin (Bld) [Mass/Vol] 13.6 g/dL Normal 11.2-15.7 [facility] Comment on above: Performed By: #### C BCWD #### [facility] [address] [place] [address] Imm Granulocytes 0.3 % Normal [facility] Comment on above: Performed By: #### C BCWD #### [facility] [address] [place] [address] Lymphocytes (Bld) [#/Vol] 2.2 10*3/uL Normal 1.2-3.7 [facility] Comment on above: Performed By: #### C BCWD #### [facility] [address] [place] [address] Lymphocytes/100 WBC (Bld) 25.3 % Normal [facility] Comment on above: Performed By: #### C BCWD #### [facility] [address] [place] [address] MCH (RBC) [Entitic mass] 30.8 pg Normal 25.6-32.2 [facility] Comment on above: Performed By: #### C BCWD #### [facility] [address] [place] [address] MCHC 32.6 % Normal 32.2-35.5 [facility] Comment on above: Performed By: #### C BCWD #### [facility] [address] [place] [address] MCV (RBC) [Entitic vol] 94.6 fL Normal 79.4-94.8 [facility] Comment on above: Performed By: #### C BCWD #### [facility] [address] [place] [address] Monocytes (Bld) [#/Vol] 0.4 10*3/uL Normal 0.2-0.9 [facility] Comment on above: Performed By: #### C BCWD #### [facility] [address] [place] [address] Monocytes/100 WBC (Bld) 4.4 % Low 4.7-12.5 [facility] Comment on above: Performed By: #### C BCWD #### [facility] [address] [place] [address] Neutrophils (Bld) [#/Vol] 5.8 10*3/uL Normal 1.6-6.1 [facility] Comment on above: Performed By: #### C BCWD #### [facility] [address] [place] [address] Neutrophils/100 WBC (Bld) 67.3 % Normal 34.0-71.1 [facility] Comment on above: Performed By: #### C BCWD #### [facility] [address] [place] [address] Platelets (Bld) [#/Vol] 200 10*3/uL Normal 182-369 [facility] Comment on above: Performed By: #### C BCWD #### [facility] [address] [place] [address] RBC (Bld) [#/Vol] 4.41 10*6/uL Normal 3.93-5.22 [facility] Comment on above: Performed By: #### C BCWD #### [facility] [address] [place] [address] WBC (Bld) [#/Vol] 8.6 10*3/uL Normal 4.0-10.0 [facility] Comment on above: Performed By: #### C BCWD #### [facility] [address] [place] [address] CBC with Auto Differentialon 08-21-2021 Basophils (Bld) [#/Vol] 0.0 10*3/uL 0.0 - 0.1 K/uL [facility] Basophils/100 WBC (Bld) 0.3 % 0.1 - 1.2 % [facility] Eosinophils (Bld) [#/Vol] 0.2 10*3/uL 0.0 - 0.4 K/uL [facility] Eosinophils/100 WBC (Bld) 2.4 % 0.7 - 5.8 % [facility] Hematocrit (Bld) [Volume fraction] 41.7 % 37.0 - 47.0 % [facility] Hemoglobin (Bld) [Mass/Vol] 13.6 g/dL 11.2 - 15.7 g/dL [facility] Immature granulocytes (Bld) [#/Vol] 0.0 10*3/uL [facility] Immature granulocytes/100 WBC (Bld) 0.3 % [facility] Interpretation and review of laboratory results Abnormal [facility] Lymphocytes (Bld) [#/Vol] 2.2 10*3/uL 1.2 - 3.7 K/uL [facility] Lymphocytes/100 WBC (Bld) 25.3 % [facility] MCH (RBC) [Entitic mass] 30.8 pg 25.6 - 32.2 pg [facility] MCHC (RBC) [Mass/Vol] 32.6 % 32.2 - 35.5 % [facility] MCV (RBC) [Entitic vol] 94.6 fL 79.4 - 94.8 fL [facility] Monocytes (Bld) [#/Vol] 0.4 10*3/uL 0.2 - 0.9 K/uL [facility] Monocytes/100 WBC (Bld) 4.4 % Low 4.7 - 12.5 % [facility] Neutrophils Absolute 5.8 K/uL 1.6 - 6 .1 K/uL [facility] Neutrophils/100 WBC (Bld) 67.3 % 34.0 - 71.1 % [facility] Platelet distribution width (Bld) [Ratio] 12.6 % 11.7 - 14.4 % [facility] Platelets (Bld) [#/Vol] 200 10*3/uL 182 - 369 K/uL [facility] RBC (Bld) [#/Vol] 4.41 10*6/uL [facility] WBC (Bld) [#/Vol] 8.6 10*3/uL 4.0 - 10.0 K/uL [facility] COVID-19on 08-21-2021 SARS-CoV-2 (COVID-19) RNA JOSIE+probe Ql (Unsp spec) Not detected Normal Not Detect [facility] Comment on above: Result Comment: Brittani sanz [...] authorized laboratories. Fact sheet for Healthcare Providers: https://www.fda.gov/media/637228/download Fact sheet for Patients: https://www.fda.gov/media/436184/download METHODOLOGY: Isothermal Nucleic Acid Amplification Performed By: #### C TAVON #### [facility] [address] [place] [address] COVID-19, Rapidon 08-21-2021 SARS-CoV-2 (COVID-19) RNA JOSIE+probe Ql (Unsp spec) Not detected Not Detected [facility] Comment on above: Rapid NAAT: Negative [...] authorized laboratories. Fact sheet for Healthcare Providers: https://www.fda.gov/media/258766/download Fact sheet for Patients: https://www.fda.gov/media/537484/download METHODOLOGY: Isothermal Nucleic Acid Amplification [facility] CT ABDOMEN PELVIS W IV CONTR [...] Some of this report was completed using [employer] voice-recognition technology and may include unintended errors [...] Mckay Solis MD 08/21/21 Final result Normal [facility] Comprehensive Metabolic Pane l reflex Mgon 08-21-2021 Albumin [Mass/Vol] 4.3 g/dL Normal 3.5-4.6 [facility] Comment on above: Performed By: #### C BCWD #### [facility] [address] [place] [address] ALP [Catalytic activity/Vol] 116 U/L Normal 40-130 [facility] Comment on above: Performed By: #### C BCWD #### [facility] [address] [place] [address] ALT [Catalytic activity/Vol] 8 U/L Normal 0-33 [facility] Comment on above: Performed By: #### C BCWD #### [facility] [address] [place] [address] Anion gap [Moles/Vol] 13 mmol/L Normal 9-15 [facility] Comment on above: Performed By: #### C BCWD #### [facility] [address] [place] [address] AST [Catalytic activity/Vol] 10 U/L Normal 0-35 [facility] Comment on above: Performed By: #### C BCWD #### [facility] [address] [place] [address] Bilirubin [Mass/Vol] mg/dL Normal 0.2-0.7 [facility] Comment on above: Performed By: #### C BCWD #### [facility] [address] [place] [address] Calcium [Mass/Vol] 9.3 mg/dL Normal 8.5-9.9 [facility] Comment on above: Performed By: #### C BCWD #### [facility] [address] [place] [address] Chloride [Moles/Vol] 105 mmol/L Normal 95-107 [facility] Comment on above: Performed By: #### C BCWD #### [facility] [address] [place] [address] CO2 [Moles/Vol] 22 mmol/L Normal 20-31 [facility] Comment on above: Performed By: #### C BCWD #### [facility] [address] [place] [address] Creatinine [Mass/Vol] 0.48 mg/dL Low 0.50-0.90 [facility] Comment on above: Performed By: #### C BCWD #### [facility] [address] [place] [address] GFR >60.0 Normal >60 [facility] Comment on above: Result Comment: >60 mL/min/1.73m2 EGFR, calc. for ages 18 and older using the MDRD formula (not corrected for weight), is valid for stable renal function. Performed By: #### C BCWD #### [facility] [address] [place] [address] GFR/1.73 sq M.predicted among blacks MDRD (S/P/Bld) [Vol rate/Area] mL/min/{1.73_m2} Normal >60 [facility] Comment on above: Result Comment: >60 mL/min/1.73m2 EGFR, calc. for ages 18 and older using the MDRD formula (not corrected for weight), is valid for stable renal function. Performed By: #### C BCWD #### [facility] [address] [place] [address] Globulin (S) [Mass/Vol] 2.5 g/dL Normal 2.3-3.5 [facility] Comment on above: Performed By: #### C BCWD #### [facility] [address] [place] [address] Glucose [Mass/Vol] 114 mg/dL Critically high 70-99 M [facility] Comment on above: Performed By: #### C BCWD #### [facility] [address] [place] [address] Magnesium [Moles/Vol] 3.6 mmol/L Normal 3.4-4.9 [facility] Comment on above: Performed By: #### C BCWD #### [facility] [address] [place] [address] Protein [Mass/Vol] 6.8 g/dL Normal 6.3-8.0 [facility] Comment on above: Performed By: #### C BCWD #### [facility] [address] [place] [address] Sodium [Moles/Vol] 140 mmol/L Normal 135-144 [facility] Comment on above: Performed By: #### C BCWD #### [facility] [address] [place] [address] Urea nitrogen [Mass/Vol] 10 mg/dL Normal 6-20 [facility] Comment on above: Performed By: #### C BCWD #### [facility] [address] [place] [address] Comprehensive Metabolic Pane l w/ Reflex to MGon 08-21-2021 Albumin [Mass/Vol] 4.3 g/dL 3.5 - 4.6 g/dL [facility] ALP (Bld) [Catalytic activity/Vol] 116 U/L 40 - 130 U/L [facility] ALT [Catalytic activity/Vol] 8 U/L 0 - 33 U/L [facility] Anion gap [Moles/Vol] 13 mmol/L [facility] AST [Catalytic activity/Vol] 10 U/L 0 - 35 U/L [facility] Bilirubin [Mass/Vol] mg/dL 0.2 - 0 .7 mg/dL [facility] Calcium [Mass/Vol] 9.3 mg/dL 8.5 - 9.9 mg/dL [facility] Chloride [Moles/Vol] 105 mmol/L [facility] CO2 [Moles/Vol] 22 mmol/L [facility] Creatinine [Mass/Vol] 0.48 mg/dL Low 0.50 - 0.90 mg/dL [facility] Free PSA/Total PSA [Mass fraction] 6.8 g/dL 6.3 - 8.0 g/dL [facility] GFR >60.0 >60 [facility] Comment on above: >60 mL/min/1.73m2 EG FR, calc. for ages 18 and older using the MDRD formula (not corrected for weight), is valid for stable renal function. GFR Non- >60.0 >60 [facility] Comment on above: >60 mL/min/1.73m2 EG FR, calc. for ages 18 and older using the MDRD formula (not corrected for weight), is valid for stable renal function. Globulin (S) [Mass/Vol] 2.5 g/dL 2.3 - 3.5 g/dL [facility] Glucose [Mass/Vol] 114 mg/dL High 70 - 99 mg/dL [facility] Interpretation and review of laboratory results Abnormal [facility] Potassium reflex Magnesium 3.6 [facility] Sodium [Moles/Vol] 140 mmol/L [facility] Urea nitrogen (BldV) [Mass/Vol] 10 mg/dL 6 - 20 mg/dL [facility] Lipaseon 08-21-2021 Lipase [Catalytic activity/Vol] 18 U/L Normal 12-95 [facility] Comment on above: Performed By: #### L IPAS #### [facility] [address] [facility] [address] Lipase [Catalytic activity/Vol] 18 U/L 12 - 95 U/L [facility] No Panel Informationon 08-21 [facility] , Urineon 2 Beta HCG ( test) Ql (U) Negative Detects HCG level >20 MIU/mL [facility] UR HCG Qualitativeon 022 Beta HCG ( test) Ql (U) Negative Normal Detects [facility] Comment on above: Performed By: #### C BCWD #### [facility] [address] [place] [place] [address] Urinalysis with Reflex to Cu ltureon 08-21-2021 Bilirubin Urine Negative Negative [facility] Blood, Urine Negative Negative [facility] Clarity, UA Clear Clear [facility] Color, UA Yellow Straw/Yellow [facility] Glucose, Ur Negative Negative mg/dL [facility] Ketones Ql (U) Negative Negative mg/dL [facility] Leukocyte esterase Test strip Ql (U) Negative Negative [facility] Nitrite, Urine Negative Negative [facility] pH, UA 5.5 [facility] Protein, UA Negative Negative mg/dL [facility] Specific [place], UA <=1.005 [facility] Urine Reflex to Culture Not Indicated [facility] Urobilinogen, Urine 0.2 <2.0 E.U./dL [facility] Urinalysis, reflex to cultur minoo 08-21-2021 Bilirubin Ql (U) Negative Normal Negative [facility] Comment on above: Performed By: #### C BCWD #### [facility] [address] [place] [address] Clarity (U) Clear Normal Clear [facility] Comment on above: Performed By: #### C BCWD #### [facility] [address] [place] [address] Color (U) Yellow Normal Straw/Vieques [facility] Comment on above: Performed By: #### C BCWD #### [facility] [address] [place] [address] Glucose Ql (U) Negative Normal Negative [facility] Comment on above: Performed By: #### C BCWD #### [facility] [address] [place] [address] Hemoglobin Ql (U) Negative Normal Negative [facility] Comment on above: Performed By: #### C BCWD #### [facility] [address] [place] [address] Ketones Ql (U) Negative Normal Negative [facility] Comment on above: Performed By: #### C BCWD #### [facility] [address] [place] [address] Leukocyte esterase Test strip Ql (U) Negative Normal Negative [facility] Comment on above: Performed By: #### C BCWD #### [facility] [address] [place] [address] Nitrite Ql (U) Negative Normal Negative [facility] Comment on above: Performed By: #### C BCWD #### [facility] [address] [place] [address] pH (U) 5.5 [pH] Normal 5.0-9.0 [facility] Comment on above: Performed By: #### C BCWD #### [facility] [address] [place] [address] Protein Ql (U) Negative Normal Negative [facility] Comment on above: Performed By: #### C BCWD #### [facility] [address] [place] [address] Specific gravity (U) [Rel density] <=1.005 Normal 1.005-1.03 [facility] Comment on above: Performed By: #### C BCWD #### [facility] [address] [place] [address] Urine Reflexed to Culture Not Indicated Normal [facility] Comment on above: Performed By: #### C BCWD #### [facility] [address] [place] [address] Urobilinogen Qn (U) 0.2 {Ginger'U}/dL Normal < 2.0 [facility] Comment on above: Performed By: #### C BCWD #### [facility] [address] [place] [address] CBC WITH AUTO DIFFERENTIALon 02-29-2020 Basophils (Bld) [#/Vol] 0.0 10*3/uL 0 - 0.2 K/uL [place] Basophils/100 WBC (Bld) 0.4 % [place] Eosinophils (Bld) [#/Vol] 0.2 10*3/uL 0 - 0.7 K/uL [facility], [place] Eosinophils/100 WBC (Bld) 2.6 % [place] Erythrocyte distribution width (RBC) [Ratio] 13.6 % 11.5 - 14.5 % [place] Hematocrit (Bld) [Volume fraction] 40.3 % 37 - 47 % [place] Hemoglobin (Bld) [Mass/Vol] 13.6 g/dL 12 - 16 g/dL [place] Lymphocytes (Bld) [#/Vol] 1.7 10*3/uL 1 - 4.8 K/uL [place] Lymphocytes/100 WBC (Bld) 21.0 % [place] MCH (RBC) [Entitic mass] 31.0 pg 27 - 31.3 pg [place] MCHC (RBC) [Mass/Vol] 33.9 % 33 - 37 % [place] MCV (RBC) [Entitic vol] 91.6 fL 82 - 100 fL [place] Monocytes (Bld) [#/Vol] 0.4 10*3/uL 0.2 - 0.8 K/uL [place] Monocytes/100 WBC (Bld) 4.6 % [place] Neutrophils Absolute 5.6 K/uL 1.4 - 6 .5 K/uL [place] Neutrophils/100 WBC (Bld) 71.4 % [place] Platelets (Bld) [#/Vol] 195 10*3/uL 130 - 400 K/uL [place] RBC (Bld) [#/Vol] 4.40 10*6/uL [place] WBC (Bld) [#/Vol] 7.9 10*3/uL 4.8 - 10.8 K/uL [place] COVID-19on 02-29-2020 SARS-CoV-2, NAAT Not Detected Not Detected [place] Comment on above: Rapid NAAT: Negative [...] authorized laboratories. Fact sheet for Healthcare Providers: https://www.fda.gov/media/523776/download Fact sheet for Patients: https://www.JamHub.gov/media/025643/download METHODOLOGY: Isothermal Nucleic Acid Amplification POC UR-QUALon 02-11 Beta HCG ( test) Ql (U) Negative Negative [place] Lot Number [id number] [place] Negative QC Pass/Fail Pass [place] Positive QC Pass/Fail Pass [place] Hemoglobinon 11-03-2019 Hemoglobin (Bld) [Mass/Vol] 11.2 g/dL Low 12 - 16 g/dL [place] Interpretation and review of laboratory results Abnormal [place] RPRon 11-03-2019 Reagin Ab RPR Ql (S) Non-reactive Non-reactive [place] CBC auto differentialon 10-13 Basophils (Bld) [#/Vol] 0.0 10*3/uL 0 - 0.2 K/uL [place] Basophils/100 WBC (Bld) 0.3 % [place] Eosinophils (Bld) [#/Vol] 0.1 10*3/uL 0 - 0.7 K/uL [place] Eosinophils/100 WBC (Bld) 1.2 % [place] Erythrocyte distribution width (RBC) [Ratio] 13.4 % 11.5 - 14.5 % [place] Hematocrit (Bld) [Volume fraction] 34.9 % Low 37 - 47 % [place] Hemoglobin (Bld) [Mass/Vol] 11.7 g/dL Low 12 - 16 g/dL [place] Interpretation and review of laboratory results Abnormal [place] Lymphocytes (Bld) [#/Vol] 1.4 10*3/uL 1 - 4.8 K/uL [place] Lymphocytes/100 WBC (Bld) 11.4 % [place] MCH (RBC) [Entitic mass] 31.2 pg 27 - 31.3 pg [place] MCHC (RBC) [Mass/Vol] 33.6 % 33 - 37 % [place] MCV (RBC) [Entitic vol] 93.0 fL 82 - 100 fL [place] Monocytes (Bld) [#/Vol] 0.5 10*3/uL 0.2 - 0.8 K/uL [place] Monocytes/100 WBC (Bld) 4.2 % [place] Neutrophils Absolute 10.1 K/uL High 1.4 - 6 .5 K/uL [place] Neutrophils/100 WBC (Bld) 82.9 % [place] Platelets (Bld) [#/Vol] 191 10*3/uL 130 - 400 K/uL [place] RBC (Bld) [#/Vol] 3.75 10*6/uL Low [place] WBC (Bld) [#/Vol] 12.1 10*3/uL High 4.8 - 10.8 K/uL [place] Comprehensive Metabolic Pane fortunato 11-02-2019 Albumin [Mass/Vol] 3.2 g/dL Low 3.5 - 4.6 g/dL [place] ALP [Catalytic activity/Vol] 147 U/L High 40 - 130 U/L [place] ALT [Catalytic activity/Vol] 6 U/L 0 - 33 U/L [place] Anion gap [Moles/Vol] 10 mmol/L [place] AST [Catalytic activity/Vol] 7 U/L 0 - 35 U/L [place] Bilirubin Ql (U) <0.2 0.2 - 0.7 mg/dL [place] Calcium [Mass/Vol] 8.4 mg/dL Low 8.5 - 9.9 mg/dL [place] Chloride [Moles/Vol] 104 mmol/L [place] CO2 [Moles/Vol] 21 mmol/L [facility] [place] [place] Creatinine [Mass/Vol] 0.3 mg/dL Low 0.5 - 0.9 mg/dL [place] GFR >60.0 >60 [place] Comment on above: >60 mL/min/1.73m2 EG FR, calc. for ages 18 and older using the MDRD formula (not corrected for weight), is valid for stable renal function. GFR Non- >60.0 >60 [place] Comment on above: >60 mL/min/1.73m2 EG FR, calc. for ages 18 and older using the MDRD formula (not corrected for weight), is valid for stable renal function. Globulin (S) [Mass/Vol] 2.8 g/dL 2.3 - 3.5 g/dL [place] Glucose [Mass/Vol] 103 mg/dL High 70 - 99 mg/dL [place] Interpretation and review of laboratory results Abnormal [place] Potassium [Moles/Vol] 3.9 mmol/L [place] Protein [Mass/Vol] 6.0 g/dL Low 6.3 - 8 g/dL [place] Sodium [Moles/Vol] 135 mmol/L [place] Urea nitrogen [Mass/Vol] 8 mg/dL 6 - 20 mg/dL [place] DRUG SCREEN MULTI URINEon Amphetamine Screen, Urine Negative Negative <1000 ng/mL [place] Barbiturate Screen, Ur Negative Negative < 200 ng/mL [place] Benzodiazepine Screen, Urine Negative Negative < 200 ng/mL [place] Cannabinoid Scrn, Ur Negative Negativ e < 50 ng/mL [place] Cocaine Metabolite Screen, Urine Negative Negative < 300 ng/mL [place] Drug Screen Comment: see below [place] Comment on above: This method is a scr eening test to detect only these drug classes as part of a medical workup. Confirmatory testing by another method should be ordered if clinically indicated. Methadone Screen, Urine Negative Negative <300 ng/mL [place] Comment on above: Effective: 10/20/18 New Test for Qualitative Drug Screen. Opiate Scrn, Ur Negative Negative < 300 ng/mL [place] Oxycodone Urine Negative Negative <10 0 ng/mL [place] Comment on above: Effective: 10/20/18 New Test for Qualitative Drug Screen. PCP Screen, Urine Negative Negative < 25 ng/mL [place] Propoxyphene Scrn, Ur Negative Negative <300 ng/mL [place] Comment on above: Effective: 10/20/18 New Test for Qualitative Drug Screen. Hepatitis B surface antigeno n 11-02-2019 Hep B S Ag Interp Non-reactive [place] Rubella antibody, IgGon 10-13 Rubella Antibody IgG 69.5 IU/mL [place] Comment on above: Patient's result ind icates immunity. Default Normal Ranges >=10 Presumed Immune <10 Presumed Not immune TYPE AND SCREENon 11-02-2019 ABO/Rh Positive [place] Urinalysison 11-02-2019 Bilirubin Urine Negative Negative [place] Blood, Urine Negative Negative [place] Clarity, UA Clear Clear [place] Color, UA Yellow Straw/Yellow [place] Glucose, Ur Negative Negative mg/dL [place] Ketones Ql (U) Negative Negative mg/dL [place] Leukocyte esterase Test strip Ql (U) Negative Negative [place] Nitrite, Urine Negative Negative [place], [place] pH, UA 7.5 [place] Protein (U) [Mass/Vol] Negative Negative mg/dL [place] Specific [place], UA 1.020 [place] Urobilinogen, Urine 0.2 <2.0 E.U./dL [place] Otheron 06-19-2019 APPROPRIATE GROWTH SINCE LAST SONOGRAM. [place] Sonogram #: 1 Presentation: Transverse, head [...] the amniotic fluid is within normal limits. [facility] [place] Manny, Chpo Incoming Radiant Results From [employer] of Ice - 06/19/2019 5:09 PM EDT Sonogram #: [...] limits. IMPRESSION: APPROPRIATE GROWTH SINCE LAST SONOGRAM. Via US OB LESS THAN 14 WEEKS SIN GLE OR FIRST GESTATIONon 04-14-2019 THERE IS A SINGLE IU P WITH ESTIMATED GESTATIONAL AGE BASED UPON CROWN-RUMP LENGTH OF 10 WEEKS 2 DAYS +/- 1 WEEK WITH HEART RATE OF 155 BPM. ANATOMY IS NOT ASSESSED DUE TO EARLY GESTATIONAL AGE. THE RIGHT OVARY IS SURGICALLY ABSENT. THE LEFT OVARY SUBMITTED VISUALIZED. [place] TRANSABDOMINAL EXAMINATION OF THE PELVIS CLINICAL [...] ovary is not visualized. No free fluid. [facility] Chpo Incoming Radiant Results From [employer] - 04/14/2019 4:16 PM EST TRANSABDOMINAL EXAMINATION [...] SURGICALLY ABSENT. THE LEFT OVARY SUBMITTED VISUALIZED. [facility] PROGRESSon 09-30-2018 PROGRESS HNO ID: [id number] Author: Maranda Gupta) Vimal Service: ? Author Type: ACCOUNT ADVISOR Type: Progress Notes Filed: 09/30/2018 3:29 PM [...] ROGER September 30, 2018 2:08 PM Normal [facility] PROGRESSon 04-24-2018 PROGRESS HNO ID: [id number] Author: Maranda Celis Service: ? Author Type: ACCOUNT ADVISOR Type: Progress Notes Filed: 04/24/2018 3:32 PM [...] OD April 24, 2018 3:31 PM Normal [facility] Office Visit (Urgent Care)on 08-21-2017 Office Visit (Urgent Care) Chief Complaint Rash History of Present Seunpie15-[id number] female who 2 hours ago was sitting [...] 08/21/2017 5:38:10 PM Vitals Vital Signs Recorded: [id number]. 5 FHeart [id number] [id number] Height5 ft 3 kwInmmrk974 lb BMI [id number] Calculated1.83O2 Ncboayblcm73Yoda Scale0 Physical ExamPatient appears in no apparent [...] 160 cm Sulema Teran DO Work Phone: [employer] 12-16-2021 07:12-0400 Body mass index (BMI) [Ratio] 31.89 kg/m2 Sulema Teran DO Work Phone: [employer] 12-16-2021 07:12-0400 Body temperature 98.91 [degF] Sulema Teran DO Work Phone: [employer] 12-16-2021 07:12-0400 Body weight 81.65 kg Sulema Teran DO Work Phone: [employer] 12-16-2021 07:12-0400 Diastolic blood pressure 84 mm[Hg] Sulema Teran DO Work Phone: [employer] 12-16-2021 07:12-0400 Heart rate 104 /min Sulema Teran DO Work Phone: [employer] 12-16-2021 07:12-0400 Respiratory rate 18 /min Sulema Teran DO Work Phone: [employer] 12-16-2021 07:12-0400 SaO2% (BldA) [Mass fraction] 98 % Sulema De La Cruzin DO Work Phone: [employer] 12-16-2021 07:12-0400 Systolic blood pressure 127 mm[Hg] Sulema Teran DO Work Phone: [facility] 10-28-2021 15:43-0400 Body height 160 cm Nikki Martha-David PA-C Work Phone: [facility] [employer] 10-28-2021 15:43-0400 Body mass index (BMI) [Ratio] 31.89 kg/m2 Nikki Martha-David PA-C Work Phone: [facility] 10-28-2021 15:43-0400 Body temperature 98.1 [degF] Nikki Martha-David PA-C Work Phone: [facility] [employer] 10-28-2021 15:43-0400 Body weight 81.65 kg Nikki Martha-David PA-C Work Phone: [facility] 10-28-2021 15:43-0400 Diastolic blood pressure 81 mm[Hg] Nikki Martha-David PA-C Work Phone: [facility] [employer] 10-28-2021 15:43-0400 Heart rate 93 /min Nikki Martha-David PA-C Work Phone: [facility] 10-28-2021 15:43-0400 Respiratory rate 20 /min Nikki Martha-David PA-C Work Phone: [facility] 10-28-2021 15:43-0400 SaO2% (BldA) [Mass fraction] 98 % Nikki Martha-David PA-C Work Phone: [facility] [employer] 10-28-2021 15:43-0400 Systolic blood pressure 130 mm[Hg] Nikki Martha-David PA-C Work Phone: [facility] 08-21-2021 06:21-0400 Body temperature 98.2 [degF] Penny Ritter MD Work Phone: [employer] 08-21-2021 06:21-0400 Diastolic blood pressure 58 mm[Hg] Penny Ritter MD Work Phone: [employer] 08-21-2021 06:21-0400 Heart rate 81 /min Penny Ritter MD Work Phone: [employer] 08-21-2021 06:21-0400 Respiratory rate 16 /min Penny Ritter MD Work Phone: [employer] 08-21-2021 06:21-0400 SaO2% (BldA) [Mass fraction] 97 % Penny Ritter MD Work Phone: [employer] 08-21-2021 06:21-0400 Systolic blood pressure 116 mm[Hg] Penny Ritter MD Work Phone: [employer] 08-21-2021 01:09-0400 Body height 160 cm Penny Ritter MD Work Phone: [employer] 08-21-2021 01:09-0400 Body mass index (BMI) [Ratio] 32.06 kg/m2 Penny Ritter MD Work Phone: [employer] 08-21-2021 01:09-0400 Body weight 82.1 kg Penny Ritter MD Work Phone: [employer] 11-05-2020 07:21-0400 Body temperature 98.1 [degF] Rebecca Gonzalez [employer] Work Phone: 11-05-2020 07:21-0400 Diastolic blood pressure 71 mm[Hg] Rebecca Gonzalez [employer] Work Phone: 11-05-2020 07:21-0400 Heart rate 94 /min Rebecca Gonzalez [employer] Work Phone: 11-05-2020 07:21-0400 Respiratory rate 18 /min Rebecca Gonzalez [employer] [facility] [employer] Phone: 11-05-2020 07:21-0400 SaO2% (BldA) [Mass fraction] 99 % Rebecca Gonzalez [employer] [facility] Phone: 11-05-2020 07:21-0400 Systolic blood pressure 116 mm[Hg] Rebecca Gonzalez [employer] [facility] Phone: 02-29-2020 12:25-0500 Body Temperature 97.7 [degF] [facility] [place] [facility] [place] 02-29-2020 12:25-0500 BP Diastolic 56 mm[Hg] Rj [place] [facility] , [place] 02-29-2020 12:25-0500 BP Systolic 123 mm[Hg] Rj Lauren [facility] [place] 02-29-2020 12:25-0500 Pulse (Heart Rate) 76 /min [facility] [place] 02-29-2020 12:25-0500 Pulse Oximetry 99 % [facility] [place] 02-29-2020 12:25-0500 Respiratory Rate 16 /min [facility] [place] [facility] [place] 02-29-2020 08:15-0500 BMI (Body Mass Index) 34.54 kg/m2 Rj Lauren [employer] [facility], [place] 02-29-2020 08:15-0500 Body weight 88.45 kg Rj [place] [facility] [place] 02-29-2020 08:15-0500 Height 160 cm [facility] [place] 11-04-2019 07:30-0400 Body Temperature 98.29 [degF] [facility] [place] [facility] [place] 11-04-2019 07:30-0400 BP Diastolic 68 mm[Hg] Rj Lauren [facility] [place] 11-04-2019 07:30-0400 BP Systolic 115 mm[Hg] Rj [place] [facility] [place] 11-04-2019 07:30-0400 Pulse (Heart Rate) 88 /min [facility] [place] 11-04-2019 07:30-0400 Respiratory Rate 16 /min [facility] [place] 11-03-2019 12:37-0400 Pulse Oximetry 99 % Rj Aguilar [facility] [place] 11-02-2019 07:45-0400 BMI (Body Mass Index) 37.91 kg/m2 Rj [facility] 11-02-2019 07:45-0400 Body weight 97.07 kg Rj [facility] [place] 11-02-2019 07:45-0400 Height 160 cm Rj [facility] , [place] 09-30-2018 10:02-0400 BMI (Body Mass Index) 31 kg/m2 Tip [facility], [place] 09-30-2018 10:02-0400 Body Temperature 98.49 [degF] [place] 09-30-2018 10:02-0400 Body weight 79.38 kg [place], [place] 09-30-2018 10:02-0400 BP Diastolic 71 mm[Hg] [place] 09-30-2018 10:02-0400 BP Systolic 139 mm[Hg] [place] 09-30-2018 10:02-0400 Height 160 cm [place] 09-30-2018 10:02-0400 Pulse (Heart Rate) 102 /min [place], [place] 09-30-2018 10:02-0400 Pulse Oximetry 98 % [place], [place] 09-30-2018 10:02-0400 Respiratory Rate 14 /min [place] Encounters Encounter Date Encounter Type Care Provider Facility Start: 03-18-2023 Chart abstracting Fish lorenz MD Work Phone: [facility] Start: 03-11-2023 End: 03-11-2023 ambulatory JOSE F ANN Not Available Start: 02-18-2023 End: 02-18-2023 ambulatory DONNELL FINCH Not Available Start: 01-29-2023 End: 01-30-2023 ambulatory NIKKI MCGOVERN [facility] Start: 01-29-2023 End: 01-29-2023 Patient encounter procedure Jose F R SETH [facility] Start: 01-29-2023 End: 01-30-2023 ambulatory Jose F R SETH [facility] Start: 01-29-2023 End: 01-29-2023 Patient encounter procedure Jose F R SETH [facility] Start: 01-11-2023 End: 01-12-2023 ambulatory Jose F R SETH [facility] Start: 01-11-2023 End: 01-11-2023 Patient encounter procedure Jose F R SETH [facility] Start: 01-10-2023 End: 01-10-2023 ambulatory JOSE F SETH Not Available Start: 12-28-2022 End: 12-28-2022 ambulatory DONNELL FINCH Not Available Start: 07-31-2022 End: 07-31-2022 Emergency department patient visit [facility] Start: 04-11-2022 End: 04-12-2022 ambulatory LILIANA CARROLL [facility] Start: 04-11-2022 End: 04-11-2022 Subsequent hospital visit by physician Nikki Mcgovern PA-C Work Phone: [facility] Comment on above: Tonsillitis with exu date Start: 12-16-2021 End: 12-16-2021 Emergency department patient visit [facility] Start: 12-16-2021 End: 12-16-2021 Emergency department patient visit Sulema Teran DO Work Phone: [facility] Comment on above: Bitten by mouse, inabida tial encounter (Primary Dx) Start: 11-29-2021 End: 11-29-2021 ambulatory [facility] Start: 10-28-2021 End: 10-28-2021 Emergency department patient visit [facility] Start: 10-28-2021 End: 10-28-2021 Emergency department patient visit [facility] PA-C Work Phone: [facility] Comment on above: Cellulitis of trunk, unspecified site of trunk (Primary Dx) Start: 08-21-2021 End: 08-21-2021 Emergency department patient visit [facility] Start: 08-21-2021 End: 08-21-2021 Emergency department patient visit Penny Ritter MD Work Phone: [facility] Comment on above: Acute gastritis with out hemorrhage, unspecified gastritis type (Primary Dx) Start: 11-05-2020 End: 11-05-2020 Emergency department patient visit Rebecca Gonzalez DO [facility] Comment on above: Dental abscess (Prim [...] hospital visit by physician Madhav Emery 3 [facility] Madhav Ultrasound Comment on above: Amenorrhea Start: 04-14-2019 End: 04-16-2019 Subsequent hospital visit by physician Olvera Ultrasound Room 1 [facility] Ultrasound Comment on above: Amenorrhea Start: 09-30-2018 End: 09-30-2018 Emergency department patient visit Tip Antunez Work Phone: [facility] Comment on above: Pain around left [...] abdomen & pelvis w/contrast material Spring Orozco SUPERVISOR OF INSTRUCTION - PROGRAM PROJECT ANALYST Other Phone: Start: 10-28-2021 Blood count complete auto&auto difrntl w[place]co SUPERVISOR OF INSTRUCTION - PROGRAM PROJECT ANALYST Other Phone: Start: 10-28-2021 Urine test visual color cmprsn meths Spring Orozco SUPERVISOR OF INSTRUCTION - PROGRAM PROJECT ANALYST Other Phone: Start: 08-21-2021 Assay of lipase [...] DTaP/Tdap/Td vaccine (3 - Td or Tdap) [facility] Start: 07-12-2025 Screening for malign ant neoplasm of cervix [facility] Start: 05-27-2024 Screening for malign ant neoplasm of cervix Cervical cancer screen [place] Start: 07-13-2023 Screening for malign ant neoplasm of cervix Pap smear [facility] Start: 03-21-2023 End: 03-21-2023 Patient encounter procedure 03/21/2023 8:00 AM EST Appointment [facility] [place] [address] [facility] [address] [place] [address] [facility] [place] Start: 03-07-2023 Depression Monitoring Depression [facility] Start: 10-12-2022 Influenza vaccination Influenza Vacc [facility] Start: 08-29-2022 Depression Monitoring Depression [facility] Start: 06-08-2022 End: 06-08-2022 Patient encounter procedure 06/08/2022 Office Visit Neurology Blas Mike MD [address] [address] [facility] Neurology Start: 02-02-2022 End: 02-02-2022 Patient encounter procedure 02/02/2022 Office Visit Neurology Blas Mike MD [address] [place] [address] [facility] Neurology Start: 01-10-2022 End: 01-10-2022 Patient encounter procedure 01/10/2022 Office Visit Family Medicine Nikki Mcgovern PA-C [address] [place] [address] [facility] Start: 12-18-2021 End: 12-18-2021 Patient encounter procedure 12/18/2021 Office Visit Orthopedic Surgery Alena Chandra MD [address] [place] [address] [facility]ics [facility] Start: 10-12-2021 Influenza vaccination Flu vaccine (# 1) [facility] Start: 09-29-2021 End: 09-29-2021 Patient encounter procedure 09/29/2021 Office Visit Neurology Blas Mike MD [address] [place] [address] [facility] Neurology Start: 09-11-2021 Influenza vaccination Flu vaccine (# 1) [facility] Start: 01-20-2021 End: 01-20-2021 Patient encounter procedure 01/20/2021 Office Visit Neurology Blas Mike MD [address] [place] [address] [phone] [facility] Neurology Start: 12-01-2020 End: 12-01-2020 Patient encounter procedure 12/01/2020 Office Visit Obstetrics and Gynecology Rj Aguilar, [address] [place] [address] [phone] [facility] Obstetrics and Gynecology Start: 10-12-2020 Influenza vaccination Flu vaccine (# 1) [facility] Work Phone: Start: 09-29-2020 End: 09-29-2020 Patient encounter procedure 09/29/2020 Office Visit Family Medicine Nikki Mcgovern PA-C [address] [place] [address] [phone] [facility] Start: 09-16-2020 End: 09-16-2020 Patient encounter procedure 09/16/2020 Office Visit Neurology Blas Mike MD [address] [facility] [facility] [address] [place] [address] [phone] [facility] Start: 02-16-2020 End: 02-16-2020 Procedure visit 02/16/2020 Procedure visit Obstetrics and Gynecology Rj Aguilar, [address] [place] [address] [phone] [facility] Obstetrics and Gynecology Start: 12-01-2019 DTaP/Tdap/Td vaccine (2 - Td or Tdap) DTaP/Tdap/Td vaccine (2 - Td or Tdap) [facility] Start: 12-01-2019 DTaP/Tdap/Td vaccine (2 - Td) DTaP/Tdap/Td vaccine (2 - Td) [place] Start: 10-13-2019 Influenza vaccination [place] Start: 06-25-2019 End: 06-25-2019 Routine 06/25/2019 Routine Obstetrics and Gynecology Rj Aguilar, [address] [place] [address] [phone] [facility] Obstetrics and Gynecology Start: 05-05-2019 End: 05-05-2019 Routine 05/05/2019 Routine Obstetrics and Gynecology Rj Aguilar, [address] [place] [address] [phone] [facility] Obstetrics and Gynecology Start: 10-12-2018 Influenza vaccination Flu vaccine (# 1) [place] Start: 05-07-2016 Cervical cancer screen Cervical canc er screen [place] Start: 10-20-2008 Screening for malign ant neoplasm of cervix Pap Smear [facility] Start: 10-20-2006 DTaP,Tdap and Td Vaccines (1 - Tdap) DTaP,Tdap and Td Vaccines (1 - Tdap) [facility] Start: 10-20-2005 Adult BMI Screening Adult BMI Screen ing [facility] Start: 10-20-2000 Varicella Vaccine (1 of 2 - 13+ 2-dose series) Varicella Vaccine (1 of 2 - 13+ 2-dose series) [place], [place] Start: 1999 COVID-19 Vaccine (1) COVID-19 Vaccin e (1) [facility] Start: 1999 Depression Monitoring Depression Mon itoring [facility] Start: 1999 Depression Screening Depression Scre ening [facility] Start: 1999 Tobacco Screening Tobacco Screening [facility] Start: 10-20-1993 Pneumococcal 0-64 ye ars Vaccine (1 - PCV) Pneumococcal 0-64 years Vaccine (1 - PCV) [facility] Start: 10-20-1993 Pneumococcal 0-64 ye ars Vaccine (1 of 1 - PPSV23) Pneumococcal 0-64 years Vaccine (1 of 1 - PPSV23) [place] Start: 10-20-1993 Pneumococcal 0-64 ye ars Vaccine (1 of 2 - PPSV23) Pneumococcal 0-64 years Vaccine (1 of 2 - PPSV23) [facility] [employer] Phone: Start: 10-20-1992 COVID-19 Vaccine (1) COVID-19 Vaccin e (1) [facility] Start: 10-20-1988 Varicella vaccine (1 of 2 - 2-dose childhood series) Varicella vaccine (1 of 2 - 2-dose childhood series) [facility] Start: 04-19-1988 COVID-19 Vaccine (#1) COVID-19 Vacci ne (#1) [facility] Start: 1987 Tobacco Counseling Tobacco Counselin g [facility] End: 08-21-2021 CT ABDOMEN PELVIS W IV CONTRAST Additional Contrast? None CT ABDOMEN PELVIS W IV CONTRAST Additional Contrast? None Imaging Routine Once for 1 Occurrences starting 08/21/2021 until 08/21/2021 [facility] [employer] Phone: Comment on above: Once for 1 Occurrenc es starting 08/21/2021 until 08/21/2021 CT ABDOMEN PELVIS W IV CONTRAST Additional Contrast? None CT ABDOMEN PELVIS W IV CONTRAST Additional Contrast? None Imaging STAT 08/21/2021 2:34 AM EDT NAK[facility] [employer] Phone: End: 10-28-2021 Culture, Anaerobic and Aerobic Culture, Anaerobic and Aerobic Microbiology Routine One Time for 1 Occurrences starting 10/28/2021 until 10/28/2021 [email or web address] Phone: Comment on above: One Time for 1 Occur rences starting 10/28/2021 until 10/28/2021 End: 04-11-2022 Culture, Throat [email or web address] Phone: Comment on above: 1 Occurrences starti ng 04/11/2022 until 04/11/2022 End: 08-12-2020 Holter Monitor 48 Hour Holter Monitor 48 Hour Cardiac Services Routine Heart palpitations 1 Occurrences starting 08/12/2020 until 08/12/2020 [employer] Phone: Comment on above: 1 Occurrences starti ng 08/12/2020 until 08/12/2020 Oxygen therapy [[facility] Data Set] [facility] Comment on above: Daily until disconti nued starting 11/02/2019 Daily until disconti nued starting 02/29/2020 Phase I & II - meter ed glucose Phase I & II - metered glucose Point of Care Testing Routine As Needed until discontinued starting 02/29/2020 [facility] Comment on above: As Needed until disc ontinued starting 02/29/2020 End: 11-02-2019 RHOGAM INJECTION ONLY RHOGAM INJECTION ONLY Blood Bank Routine One Time for 1 Occurrences starting 11/02/2019 until 11/02/2019 [facility] Comment on above: One Time for 1 Occur rences starting 11/02/2019 until 11/02/2019 Spirometry panel Incentive jayleen metry Respiratory Care Routine Every 2hr while awake until discontinued starting 11/02/2019 [facility] Comment on above: Every 2hr while awak e until discontinued starting 11/02/2019 Surgical Pathology Surgical Path ology Lab Routine Release Upon Ordering for 1 Occurrences starting 02/29/2020 [place] Comment on above: Release Upon Orderin g for 1 Occurrences starting 02/29/2020 End: 04-14-2019 US OB Transvaginal US OB Transvaginal Imaging Routine Amenorrhea 1 Occurrences starting 04/14/2019 until 04/14/2019 [place] Comment on above: 1 Occurrences starti ng 04/14/2019 until 04/14/2019 US OB Transvaginal US OB Transva ginal Imaging Routine Amenorrhea 04/14/2019 2:44 PM EST [place] Immunizations Immunization Date Immunization Notes Care Provider [facility] 12-16-2021 tetanus toxoid, redu jameson diphtheria toxoid, and acellular pertussis vaccine, adsorbed Sulema Teran DO Work Phone: [facility] 11-02-2019 diphtheria, tetanus toxoids and acellular pertussis vaccine, unspecified formulation Rj Aguilar [place], [place] 01-22-2017 tetanus toxoid, redu jameson diphtheria toxoid, and acellular pertussis vaccine, adsorbed Jose F ANN [facility] Comment on above: Reason for Medicatio n: Other (see comment) 11-30-2009 tetanus toxoid, redu jameson diphtheria toxoid, and acellular pertussis vaccine, adsorbed Tip Antunez [facility] 10-04-2000 measles, mumps and rubella virus vaccine Rebecca Gonzalez [facility] Work Phone: Payers Date Payer Category Payer Medicaid [employer] [facility] O [id number] 2023-Present [phone] [address] [place] [address] [id number] 2021 Unknown , [id number] 2017 Unknown [id number] 2016 Unknown [facility] MEDICAID xxxxxxxxxxx 2016-Present [phone] CLAIMS DEPARTMENT [address] [place] [address] xxxxxxxxxxx [id number] 2016 Unknown [id number] 1987 Unknown [id number] 1987 Unknown [id number] [id number] 1987 Unknown [id number] [id number] 1987 Unknown [id number] 1987 Unknown [id number] [id number] 1987 Unknown [id number] [id number] 1987 Unknown [id number] [id number] 1987 Unknown [id number] [id number] 1987 Unknown [id number] [id number] 1987 Unknown [id number] [id number] 1987 Unknown [id number] [id number] 1987 Unknown [id number] 1987 Unknown [id number] Social History Date Type Detail Facility Start: 09-30-2018 End: 03-18-2023 Tobacco smoking status NHIS Current every day smoker [facility] History of tobacco use Cigarette Smoker [place] Start: 09-30-2018 End: 03-18-2023 Cigarettes smoked current (pack per day) - Reported [place], [place] Start: 09-30-2018 End: 03-18-2023 Alcohol intake No [facility] Start: 1987 Sex Assigned At Not on file [place] Start: 04-07-2019 End: 04-11-2022 Alcohol intake Current non-drinker of alcohol (finding) [place], [place] Start: 02-19-2019 [place], [place] Exposure to SARS-CoV -2 (event) Unable to assess [place] Start: 11-03-2019 End: 08-29-2021 Tobacco use and exposure Never used [place], [place] Start: 08-11-2021 End: 04-11-2022 Exposure to SARS-CoV-2 (event) Not sure [place] Start: 08-04-2020 End: 04-09-2022 History 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 [employer] Phone: Start: 08-04-2020 End: 04-09-2022 History 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 [employer] Phone: Start: 1985 Sex Assigned At Female B [facility] [employer] Start: 10-18-2021 End: 12-16-2021 Exposure to SARS-CoV-2 (event) Yes [facility] [employer] Start: 04-09-2022 History SDOH Transpo rt Non-Med 2 [employer] Work Phone: Start: 10-13-2017 Tobacco smoking status Heavy t obacco smoker (finding) [facility] Medical Equipment Procedure Code Equipment Code Equipment Origin al Text Equipment Identifier Dates fluorescein ophthalmic strip 1 mg [id number] Start: 09-30-2018 End: 09-30-2018 Clinical Notes 08-21-2021 to 01-11-2023 InstructionsAttachments Note Date & Type Note Facility 01-11-2023 Evaluation + Plan note Diagnostic Tests PendingHIV Screen 4th Generation wR[facility] 01/11/23Hepatitis B Surface Antigen 01/11/23RPR with Conf Rfx 01/11/23Rubella Antibody IgG 01/11/23HCV Antibody RFX to Quant PCR 01/11/23Urine Culture 01/11/23 [facility] 08-21-2021 Hospital Discharg e instructions Penny Ritter MD - 08/21/2021 Return to the Emergency Department immediately if you develop worsening symptoms, or you have any other concerns. Please follow up with your family doctor in 1-2 days. The following attachments cannot be sent through Care Everywhere.Gastritis (Chinese)documented in this encounter [facility] [employer] Phone: Evaluation note Diagnosis Heart palpitations Palpitations documented in this encounter [employer] Phone: evaluation note* Diagnosis Dental abscess- Primary Periapical abscess without sinus documented in this encounter [employer] Phone: [email or web address] note* Diagnosis Acute gastritis without hemorrhage, unspecified gastritis type- Primary documented in this encounter [email or web address] Phone: [email or web address] note* Diagnosis Cellulitis of trunk, unspecified site of trunk- Primary documented in this encounter [email or web address] Phone: [email or web address] note* Diagnosis Bitten by mouse, initial encounter- Primary documented in this encounter [email or web address] Phone: evaluation note* Diagnosis Tonsillitis with exudate Acute tonsillitis documented in this encounter [email or web address] Phone: Hospital course Narrative No data available for this section [facility]* Attachments The following attachments cannot be sent through Care Everywhere. * Tooth: Abscessed (Chinese) [facility] Phone: Hospital Discharge instructions* Attachments The following attachments cannot be sent through Care Everywhere. * Cellulitis (Chinese) [facility] [employer] Work Phone: Hospital Discharge instructions* Attachments The following attachments cannot be sent through Care Everywhere. * Bites: Animal (Chinese) documented in this encounterBON [employer] Work Phone: Hospital Discharge instructions No data available for this section [facility]ructionsNot on filedocumented in this encounter [facility] No data available for this section [facility] Summary Purpose Family History No Family History Records FoundNo Family History Records FoundNo Family History Records FoundNo Family History Records FoundNo Family History Records Found No data available for this section No data available for this section No data available for this section No Family History Records FoundNo Family History Records Found Advance Directives Documents on File Type Date Recorded 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 Advance Directives and Living Will Power of Irrigation Technician Documents on File Type Date Recorded 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 Advance Directives and Living Will Power of Irrigation Technician Documents on File Type Date Recorded 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 ACP-Advance Directive ACP-Power of Irrigation Technician Latest Code Status on File Code Status Date Activated Date Inactivated Comments Full Code 11/02/2019 12:26 PM Full Code 11/02/2019 7:35 AM 11/02/2019 12:26 PM Latest Code Status on File Code Status Date Activated Date Inactivated Comments Full Code 11/02/2019 12:26 PM 11/04/2019 3:22 PM Documents on File Type Date Recorded 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 ACP-Advance Directive ACP-Power of Irrigation Technician Latest Code Status on File Code Status [...] * LEEP (LOOP ELECTROSURGICAL EXCISION PROCEDURE): POST-OP (AZERBAIJANI) * Coronavirus Disease (COVID-19): General Info (Chinese) documented in this encounter Assessments Diagnosis Pain [...] GESTATION Rj Aguilar, [address] [place] [address] Status Reason Specialty Diagnoses / Procedures Referre d By Contact Referred To Contact [facility] Diagnoses Amenorrhea Procedures US OB Transvaginal Rj Aguilar DO [address] [place] [address] Status Reason Specialty Diagnoses / Procedures Referre d By Contact Referred To Contact [facility] Diagnoses Amenorrhea Procedures US OB TRANSVAGINAL Rj Aguilar, [address] [place] [address] Status Reason Specialty Diagnoses / Procedures Referred By Contact Referred To Contact Not Required - [facility] Diagnoses Amenorrhea Procedures US OB 14 Plus Weeks Single or First Gestation HC US OB GREATER THAN 14 WEEKS SINGLE FETUS Rj Aguilar, [address] [place] [address] Status Reason Specialty Diagnoses / Procedures Referre d By Contact Referred To Contact Closed Diagnoses Heart palpitations Procedures Holter Monitor 48 Hour Nikki Mcgovern PA-C [address] [place] [address] History of Present Illness * Rj Aguilar, [...] 50 mL IVPB (duplex), 2 g, Intravenous, Glass Processing Worker to OR, Rj Diaz DO meperidine [...] Once PRN, Junior Fuentes MD 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 Past Surgical History: Past Surgical History: Procedure Laterality Date SECTION 2013 SECTION N/A 11/02/2019 SECTION performed by Rj Aguilar DO [facility] [place] COLONOSCOPY 09/03/14 w/bx Social History: [...] female with IWONA 2 [facility] documented in this encounter Additional Source Comments INFORMATION SOURCE (unrecogn ized section and content) DATE CREATED AUTHOR 08/21/2017 [employer] DATE CREATED AUTHOR AUTHOR'S ORGANIZ ATION 10/01/2018 [facility] DATE CREATED AUTHOR AUTHOR'S ORGANIZ ATION 09/01/2021 [facility] Center DATE CREATED AUTHOR AUTHOR'S ORGANIZ ATION 12/04/2021 [facility] Center DATE CREATED AUTHOR AUTHOR'S ORGANIZ ATION 07/31/2022 [facility] DATE CREATED AUTHOR AUTHOR'S ORGANIZ ATION 01/31/2023 [facility] [place] [facility] ical Center DATE CREATED AUTHOR AUTHOR'S ORGANIZ ATION 03/12/2023 [facility] Specialists EPIC Reason for Visit [...] GESTATION Rj Aguilar DO [address] [place] [address] Status Reason Specialty Diagnoses / Procedures Referred By Contact Referred To Contact Not Required - [facility] Radiology Diagnoses Amenorrhea Procedures US OB 14 Plus Weeks Single or First Gestation HC US OB GREATER THAN 14 WEEKS SINGLE FETUS Rj Aguilar DO [address] [place] [address] Reason Comments Other Scheduled C/S Status Reason Specialty Diagnoses / Procedures Referre d By Contact Referred To Contact Diagnoses Status post repeat low transverse section repeat Procedures AR DELIVERY ONLY SECTION Rj Aguilar DO [address] [place] [address] [facility] Status Reason Specialty Diagnoses / Procedures Re ferred By Contact Referred To Contact Diagnoses HGSIL Pap smear of anus HGSIL Procedures AR COLPOSCOPY,ENTIRE VAGINA LOOP ELECTROSURGICAL EXCISION PROCEDURE COLPOSCOPY, ECC (PAT ON ADMIT) RAPID COVID Rj Aguilar DO [address] [place] [address] [facility] Status Reason Specialty Diagnoses / Procedures Referre d By Contact Referred To Contact Closed Diagnoses Heart palpitations Procedures Holter Monitor 48 Hour Nikki Mcgovern PA-C [address] [place] [address] Reason Comments Dental Pain right upper gum [...] 28 capsule 0 10/28/2021 11/04/2021 nystatin (MYCOSTATIN) [id number] UNIT/GM powder Apply topically 2 times daily [...] Care Teams (unrecognized sec tion and content) Client Administrator Relationship Specialty Start Date End Date Nikki Mcgovern PA-C PCP - General 03/29/15 Client Administrator Relationship Specialty Start Date End Date Nikki Mcgovern PA-C PCP - General 03/29/15 Client Administrator Relationship Specialty Start Date End Date Nikki Mcgovern PA-C PCP - General 03/29/15 Client Administrator Relationship Specialty Start Date End Date Nikki [...] BE BASED ON THE PRIMARY CLINICAL RECORDS. [facility] [employer] provides no warranty or guarantee of the accuracy or completeness of information in this document.
--- OUTSIDE RECORDS SUMMARY | 2023-03-25 07:35 | XMS_ITS | CCD ---
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 Name Role Phone Martha-David, Nikki Primary Care Provider MARTHA-DAVID NIKKI Primary Care Unavailabl e Martha-David PA-C, Nikki Primary Care Provider Martha-David PA-C, Nikki Primary Care Provider MARTHA-DAVID NIKKI Primary Care Unavailabl e PENNY RITTER Attending Unavailable LILIANA CARROLL Referring Unavail able MARTHA-DAVID, NIKKI Primary Care Unavailabl e MARTHA-DAVID, NIKKI Primary Care Unavailabl e SULEMA TERAN Attending Unavailable MARTHA-DAVID, NIKKI Primary Care Unavailabl e MARTHA-DAVID, NIKKI Primary Care Unavailabl e SULEMA TERAN Attending Unavailable MARTHA-DAVID, NIKKI Primary Care Physician Yennifer vailable MARTHA-DAVID, NIKKI [...] R Attending Unavailable DONNELL FINCH Attending Unavailable SETH, JOSE F Attending Unavailable SETH, JOSE F Attending Unavailable Unavailable Primary Care Provider Unavailabl e Allergies Allergy Classification Reported Allergen(s) Allergy Type Date of Onset Reaction(s) Facility (3 sources) Acetaminophen / oxyCODONE Drug Allergy 2 Nausea And Vomiting, Headache [facility] [employer] [facility]: (3 sources) traMADol Drug Allergy 2 [facility] [employer]: (1 source) No Known Medication Allergies; Translations: [No Known Medication Allergies] Propensity to adverse reactions (disorder) [facility] Repository Medications Current Medications Medication Drug [...] Pain - Moderate, 30 tab(s), Refill(s) 0, [facility]33 Start Date: 01/22/17 Status: Ordered albuterol HFA [...] Intravenous, a t 125 mL/hr, CONTINUOUS, Starting 11/02/19 at 1245, Start: 11-02-2019 End: 11-02-2019 lactated [...] BID, # 60 cap(s), Refills(s) 0, Pharmacy: [facility] 5309 Start Date: 01/22/17 Status: Ordered Ethinyl Estradiol [...] packet 3 07/28/2020 Active Start: 01-22-2017 Ortho-Novum oral tablet 1 tab(s), Oral, Daily, 84 tab(s), Refill(s) 5, Start 3 weeks after delivery, [facility] 5308 Start Date: 01/22/17 Status: Ordered 2 ml [...] Mild, # 40 tab(s), Refills(s) 0, Pharmacy: [facility]309 Start Date: 01/22/17 Status: [...] sources) Polyene Antifungal Start: 10-28-2021 nystatin (MYCOSTATIN) 350334 UNIT/GM powder Apply topically 2 times daily [...] Give after delivery of placenta. Prenat w/o U-WrLll-INN-FA-DHA (PRENAISSANCE PLUS) 28-1-250 MG CAPS (4 sources) Start: 06-03-2019 take 1 tablet by mouth once daily Prenat w/o A-JtYlu-OTX-FA-DHA (PRENAISSANCE PLUS) 28-1-250 MG CAPS Take 1 tablet by mouth daily 30 capsule 11 06/03/2019 Suspended Start: 06-03-2019 take 1 tablet by mario th once daily Prenat w/o H-BzIye-PEA-FA-DHA (PRENAISSANCE PLUS) 28-1-250 MG CAPS Take 1 [...] tablet 3 04/09/2017 09/30/2018 Discontinued (LIST CLEANUP) Ij-J2-[id number]-PQ-Ggcntw (PRENATE AM PO) (1 source) End: 09-30-2018 Ul-V1-[id number]-IA-Jzbcon (PRENATE AM PO) Take by mouth 0 09/30/2018 Discontinued (LIST CLEANUP) Multivitamins with Folic Acid 1 mg oral tablet (3 sources) Start: 07-26-2016 Multivitamins with Folic Acid 1 mg oral tablet 1 tab(s), Oral, Daily, 100 tab(s), Refill(s) 0, [facility] 5309 Start Date: 07/26/16 Status: Ordered 50 ml [...] Extremities Normal Diaphragm Normal ACI Normal Normal [facility] CHEMISTRYOrdered By: SYSTEM SYSTEM on 01-29-2023 Glucose [Mass/Vol] 157 mg/dL High 55 - 140 mg/dL Remisol Chem Consent for Treatmenton 01-11 Consent for Treatment [id number] .00TIFF [facility] Consent for Treatment [id number] .00TIFF [facility] Gest Scr Glu 1 Hron 01-30-20 Glucose [Mass/Vol] 157 mg/dL High 55-140 [facility] Comment on above: Performed By: #### 2 [id number], [id number], 553735100, 8697112753, 636807714, 307985686, 5241247, 0809308, 6316612 #### [facility] [address] [place] [address] Glucose 1h post 50g loadon 1 04-01-2022 Glucose, 1 hr PP 50GM dose 157 [facility] Physician Orderon 01-29-2023 Physician Order [id number]# [id number] [facility] Physician Orderon 01-28-2023 Physician Order [id number]#1 .00TIFF [facility] C Urineon 01-13-2023 Bacteria identified [...] Locations R1: This test was performed at: [facility], [address] [place] [address], [address] , [place], Normal [facility] Comment on above: Performed By: #### 2 [id number], 99051288, 583892079, 2351604695, 232042472, 826741817, 2011297, 0321475, 2795124 #### [facility] [address] [place] [address] .Interpretation:on HCV Ab IA Ql Comment Invalid Interpretation Code [facility] Comment on above: Result Comment: Not infected with HCV unless early or acute infection is suspected (which may be delayed in an immunocompromised individual), or other evidence exists to indicate HCV infection. Performed at: [facility] [address] [place], [place] [id number] PhD Mariama Zaman Performed By: #### 2 [id number], [id number], 357361800, 8794878767, 470429588, 833742224, 4549808, 7312554, 0065300 #### [facility] [address] [place] [address] HCV Antibody RFX to Quant PC Johnny 01-12-2023 HCV IgG IA Ql Non-Reactive Invalid Interpretation Code Non Reactive [facility] Comment on above: Result Comment: Perf ormed at: [facility] [id number] PhD Mariama Zaman Performed By: #### 2 [id number], 17696458, 483335094, 1219428259, 124451993, 119673382, 5085589, 9080646, 8809716 #### [facility] [address] [place] [address] HIV Screen 4th Generation wR fxon 01-12-2023 HIV 1+2 Ab+HIV1 p24 Ag IA Ql Non-Reactive Invalid Interpretation Code Non Reactive [facility] Comment on above: Result Comment: HIV Negative HIV-1/HIV-2 antibodies and HIV-1 p24 antigen were NOT detected. There is no laboratory evidence of HIV infection. Performed at: [address] [id number] PhD Mariama Zaman Performed By: #### 2 [id number], 57131792, 059982725, 2526660313, 965957659, 006352538, 1297583, 2295546, 4171067 #### [facility] [address] [place] [address] Hep Bs Agon 01-12-2023 HBV surface Ag IA Ql Negative Invalid Interpretation Code Negative [facility] Comment on above: Result Comment: Perf ormed at: [address] [id number] PhD Mariama Zaman Performed By: #### 2 [id number], 97073736, 023118987, 3299080568, 305864166, 751224099, 4581270, 6486834, 5869613 #### [facility] [address] [place] [address] RPR with Conf Rfxon 01-13-20 23 Reagin Ab RPR Ql (S) Non-Reactive Invalid Interpretation Code Non Reactive [facility] Comment on above: Result Comment: Perf ormed at: [address] [id number] PhD Mariama Zaman Performed By: #### 2 [id number], 94422814, 603050908, 6920379399, 996850054, 056287870, 2746270, 5220534, 4969358 #### [facility] [address] [place] [address] Rubella IgGon 01-12-2023 Rubella virus IgG Qn (S) 5.68 [IU]/mL Invalid Interpretation Code Immune >0.99 [facility] Comment on above: Result Comment: Non- immune <0.90 Equivocal 0.90 - 0.99 Immune >0.99 Performed at: [facility] [id number] PhD Mariama Zaman Performed By: #### 2 [id number], 26696956, 028595270, 0261192833, 079561510, 832466440, 3453376, 5613972, 4623918 #### [facility] [address] [place] [address] ABO/Rhon 01-11-2023 ABO/Rh Positive Invalid Interpretation Code [facility] Comment on above: Performed By: #### 2 [id number], 03562913, 626170864, 9286168862, 793236469, 367478627, 7915783, 6580451, 3770248 #### [facility] [address] [place] [address] ABSCon 01-11-2023 ABSC Gel Interp Negative Normal [facility] Comment on above: Performed By: #### 2 [id number], 03319106, 406820779, 3559340210, 174413223, 722912335, 7664078, 6789599, 1833090 #### [facility] [address] [place] [address] BLOOD BANKOrdered By: Dylan Lemons on 01-11-2023 ABO/Rh Interp Positive Invalid Interpretation Code [facility] BB Subsection ABSC Gel Interp Negative (01/11/23 10:00 AM) Normal [facility] BB Subsection CBC w/IndicesOrdered By: López Jorgensen on 01-11-2023 Erythrocyte distribution width (RBC) [Ratio] 13.4 % Normal 10.9-14.2 [facility] Comment on above: Performed By: #### 2 [id number], 51008689, 973726218, 9395794237, 193104882, 203031235, 6406576, 6789440, 1737605 #### [facility] [address] [place] [address] Hematocrit (Bld) [Volume fraction] 34.4 % [facility] Comment on above: Performed By: #### 2 [id number], 59209539, 008302028, 3218092224, 635375022, 636444090, 0668890, 1279227, 8048167 #### [facility] [address] [place] [address] Hemoglobin (Bld) [Mass/Vol] 11.7 g/dL [facility] Comment on above: Performed By: #### 2 [id number], 93582698, 846097228, 2178630854, 832880613, 126639563, 9754505, 5212556, 3268334 #### [facility] [address] [place] [address] MCH (RBC) [Entitic mass] 31.7 pg Normal 27.0-34.0 [facility] Comment on above: Performed By: #### 2 [id number], 90318257, 206905465, 0004942150, 847566515, 815932440, 2986129, 8743192, 6265247 #### [facility] [address] [place] [address] MCHC (RBC) [Mass/Vol] 33.9 g/dL Normal 31.4-36.0 [facility] Comment on above: Performed By: #### 2 [id number], 23161096, 017970876, 4041112019, 590557295, 806696121, 6693202, 8703535, 9719793 #### [facility] [address] [place] [address] MCV (RBC) [Entitic vol] 93.3 fL Normal 80.0-100.0 [facility] Comment on above: Performed By: #### 2 307541763, 57444070, 977965121, 5507707757, 914606055, 354588753, 9433014, 1372491, 8890295 #### [facility] [address] [place] [address] Platelet mean volume (Bld) [Entitic vol] 8.0 fL Normal 6.4-10.8 [facility] Comment on above: Performed By: #### 2 772082868, 64887517, 217040823, 8726133071, 648848973, 184843482, 2085063, 3130869, 6154657 #### [facility] [address] [place] [address] Platelets (Bld) [#/Vol] 171.0 E9/L Normal 150.0-500.0 [facility] Comment on above: Performed By: #### 2 416907950, 49767530, 791195225, 6697127634, 605490825, 554625501, 9177626, 1427682, 2201121 #### [facility] [address] [place] [address] RBC (Bld) [#/Vol] 3.7 E12/L Low 4.3-5.9 [facility] Comment on above: Performed By: #### 2 469183777, 42918138, 628311422, 8964550711, 288905119, 557664204, 5750028, 2161011, 7710832 #### [facility] [address] [place] [address] WBC corrected for nucl RBC Auto (Bld) [#/Vol] 11.7 E9/L High 4.0-11.0 [facility] Comment on above: Performed By: #### 2 222678321, 19620512, 531866329, 8114493327, 665478476, 497948535, 1411930, 1143406, 7626324 #### [facility] [address] [place] [address] CBC without diffon Platelets (Bld) [#/Vol] 171 10*3/uL [facility] Consent for Treatmenton Consent for Treatment [id number] .00TIFF Normal [facility] HIV 1&2 AB/AG Screen (P24 AG )on 01-11-2023 HIV 1&2 AB/AG Non-Reactive [facility] Hepatitis B surface antigeno n 01-11-2023 Hepatitis B Surface Antigen Negative [facility] Hepatitis C(HCV) Ab w/ Refle x to PCRon 01-11-2023 HCV Ab Ql (S) Non-Reactive [facility] [id number] By: Liliana Dumont on 01-11-2023 HbA1c (Bld) [Mass fraction] 4.9 % Normal <=5.9 [facility] Comment on above: Performed By: #### 2 [id number], 94156006, 758465491, 7733547014, 448945675, 594964305, 9789528, 9242651, 8432349 #### [facility] [address] [place] [address] No Panel Informationon 01-11 [facility] Physician Orderon 01-11-2023 Physician Order [id number] .00TIFF Normal [facility] Rubella IGG immune statuson 01-11-2023 Rubella immune IgG 5.68 [facility] Syphilis Total(Unknown Syphi lis Status)on 01-11-2023 Syphilis Non-Reactive [facility] TSHon 01-11-2023 Thyroid Stimulating (3Rd Generation) Hormone/ Tsh 1.30 [facility] TSHOrdered By: SYSTEM SYSTEM on 01-11-2023 TSH Qn 1.30 m[IU]/L Normal 0.34-5.60 [facility] Remisol Comment on above: Performed By: #### 2 [id number], 94358095, 592174962, 7834579936, 589691797, 596423751, 3544435, 6270765, 6396131 #### [facility] [address] [place] [address] Type and screenon 01-11-2023 Abo/Rh(D) Positive [facility] Basic Metabolic Panelon 06-2 0-2023 Calcium [Mass/Vol] 9.1 mg/dL Normal 8.5-9.9 [facility] Comment on above: Performed By: #### C BCWD #### [facility] [address] [place] [address] Chloride [Moles/Vol] 105 mmol/L Normal 95-107 [facility] Comment on above: Performed By: #### C BCWD #### [facility] [address] [place] [address] CO2 [Moles/Vol] 22 mmol/L Normal 20-31 [facility] Comment on above: Performed By: #### C BCWD #### [facility] [address] [place] [address] Creatinine [Mass/Vol] 0.59 mg/dL Normal 0.50-0.90 [facility] Comment on above: Performed By: #### C BCWD #### [facility] [address] [place] [address] GFR >60.0 Normal >60 [facility] Comment on above: Result Comment: Pedi atric calculator link https://www.kidney.org/professionals/kdoqi/gfr_calculatorped Effective Nov 13, [...] secretion. Performed By: #### C BCWD #### [facility] [address] [place] [address] Glucose [Mass/Vol] 110 mg/dL Critically high 70-99 [facility] Comment on above: Performed By: #### C BCWD #### [facility] [address] [place] [address] Potassium [Moles/Vol] 4.0 mmol/L Normal 3.4-4.9 [facility] Comment on above: Performed By: #### C BCWD #### [facility] [address] [place] [address] Sodium [Moles/Vol] 139 mmol/L Normal 135-144 [facility] Comment on above: Performed By: #### C BCWD #### [facility] [address] [place] [address] Urea nitrogen [Mass/Vol] 12 mg/dL Normal 6-20 [facility] Comment on above: Performed By: #### C BCWD #### [facility] [address] [place] [address] Anion gap [Moles/Vol] 12 mmol/L Normal 9-15 [facility] Comment on above: Performed By: #### C BCWD #### [facility] [address] [place] [address] CBC With Platelet and Differ entialon 07-31-2022 Abs Imm Granulocytes 0.0 K/uL Normal [facility] Comment on above: Performed By: #### C BCWD #### [facility] [address] [place] [address] Basophils (Bld) [#/Vol] 0.0 10*3/uL Normal 0.0-0.1 [facility] Comment on above: Performed By: #### C BCWD #### [facility] [address] [place] [address] Basophils/100 WBC (Bld) 0.4 % Normal 0.1-1.2 [facility] Comment on above: Performed By: #### C BCWD #### [facility] [address] [place] [address] Eosinophils (Bld) [#/Vol] 0.2 10*3/uL Normal 0.0-0.4 [facility] Comment on above: Performed By: #### C BCWD #### [facility] [address] [place] [address] Eosinophils/100 WBC (Bld) 2.6 % Normal 0.7-5.8 [facility] Comment on above: Performed By: #### C BCWD #### [facility] [address] [place] [address] Erythrocyte distribution width (RBC) [Ratio] 12.6 % Normal 11.7-14.4 [facility] Comment on above: Performed By: #### C BCWD #### [facility] [address] [place] [address] Hematocrit (Bld) [Volume fraction] 39.6 % Normal 37.0-47.0 [facility] Comment on above: Performed By: #### C BCWD #### [facility] [address] [place] [address] Hemoglobin (Bld) [Mass/Vol] 13.5 g/dL Normal 11.2-15.7 [facility] Comment on above: Performed By: #### C BCWD #### [facility] [address] [place] [address] Imm Granulocytes 0.3 % Normal [facility] Comment on above: Performed By: #### C BCWD #### [facility] [address] [place] [address] Lymphocytes (Bld) [#/Vol] 1.8 10*3/uL Normal 1.2-3.7 [facility] Comment on above: Performed By: #### C BCWD #### [facility] [address] [place] [address] Lymphocytes/100 WBC (Bld) 25.0 % Normal [facility] Comment on above: Performed By: #### C BCWD #### [facility] [address] [place] [address] MCH (RBC) [Entitic mass] 31.9 pg Normal 25.6-32.2 [facility] Comment on above: Performed By: #### C BCWD #### [facility] [address] [place] [address] MCHC 34.1 % Normal 32.2-35.5 [facility] Comment on above: Performed By: #### C BCWD #### [facility] [address] [place] [address] MCV (RBC) [Entitic vol] 93.6 fL Normal 79.4-94.8 [facility] Comment on above: Performed By: #### C BCWD #### [facility] [address] [place] [address] Monocytes (Bld) [#/Vol] 0.4 10*3/uL Normal 0.2-0.9 [facility] Comment on above: Performed By: #### C BCWD #### [facility] [address] [place] [address] Monocytes/100 WBC (Bld) 5.7 % Normal 4.7-12.5 [facility] Comment on above: Performed By: #### C BCWD #### [facility] [address] [place] [address] Neutrophils (Bld) [#/Vol] 4.9 10*3/uL Normal 1.6-6.1 [facility] Comment on above: Performed By: #### C BCWD #### [facility] [address] [place] [address] Neutrophils/100 WBC (Bld) 66.0 % Normal 34.0-71.1 [facility] Comment on above: Performed By: #### C BCWD #### [facility] [address] [place] [address] Platelets (Bld) [#/Vol] 193 10*3/uL Normal 182-369 [facility] Comment on above: Performed By: #### C BCWD #### [facility] [address] [place] [address] RBC (Bld) [#/Vol] 4.23 10*6/uL Normal 3.93-5.22 [facility] Comment on above: Performed By: #### C BCWD #### [facility] [address] [place] [address] WBC (Bld) [#/Vol] 7.4 10*3/uL Normal 4.0-10.0 [facility] Comment on above: Performed By: #### C BCWD #### [facility] [address] [place] [address] UR HCG Qualitativeon 023 Beta HCG ( test) Ql (U) Negative Normal Detects HC [facility] Comment on above: Performed By: #### C BCWD #### [facility] [address] [place] [address] Urinalysis, reflex to cultur minoo 07-31-2022 Urine Reflexed to Culture Not Indicated Normal [facility] Comment on above: Performed By: #### U AR #### [facility] [address] [place] [address] Bilirubin Ql (U) Negative Normal Negative [facility] Comment on above: Performed By: #### U AR #### [facility] [address] [place] [address] Clarity (U) Clear Normal Clear [facility] Comment on above: Performed By: #### U AR #### [facility] [address] [place] [address] Color (U) Yellow Normal Straw/Dickey [facility] Comment on above: Performed By: #### U AR #### [facility] [address] [place] [address] Glucose Ql (U) Negative Normal Negative [facility] Comment on above: Performed By: #### U AR #### [facility] [address] [place] [address] Hemoglobin Ql (U) Large Normal Negative [facility] Comment on above: Performed By: #### U AR #### [facility] [address] [place] [address] Ketones Ql (U) Negative Normal Negative [facility] Comment on above: Performed By: #### U AR #### [facility] [address] [place] [address] Leukocyte esterase Test strip Ql (U) Negative Normal Negative [facility] Comment on above: Performed By: #### U AR #### [facility] [address] [place] [address] Nitrite Ql (U) Negative Normal Negative [facility] Comment on above: Performed By: #### U AR #### [facility] [address] [place] [address] pH (U) 5.5 [pH] Normal 5.0-9.0 [facility] Comment on above: Performed By: #### U AR #### [facility] [address] [place] [address] Protein Ql (U) Negative Normal Negative [facility] Comment on above: Performed By: #### U AR #### [facility] [address] [place] [address] Specific gravity (U) [Rel density] 1.015 Normal 1.005-1.03 [facility] Comment on above: Performed By: #### U AR #### [facility] [address] [place] [address] Urobilinogen Qn (U) 0.2 {Ginger'U}/dL Normal < 2.0 [facility] Comment on above: Performed By: #### U AR #### [facility] [address] [place] [address] Urine Microscopicon 08-01-19 23 Epithelial cells LM Ql (Urine sed) 3-[address] [facility] Comment on above: Performed By: #### U KAREEM #### [facility] [address] [place] [address] Urine Bacteria FEW Abnormal Negative [facility] Comment on above: Performed By: #### U KAREEM #### [facility] [address] [place] [address] Urine RBC 5-10 Abnormal 0-2 [facility] Comment on above: Performed By: #### U KAREEM #### [facility] [address] [place] [address] Urine WBC 0-2 Normal 0-5 [facility] Comment on above: Performed By: #### U KAREEM #### [facility] [address] [place] [address] Culture, Throaton 04-11-2022 Culture, Throat ORDER#: [id number] ORDERED BY: LILIANA CARROLL SOURCE: Throat Throat COLLECTED: 04/11/22 17:53 ANTIBIOTICS AT [facility].: RECEIVED : 04/11/22 21:00 Culture, Throat FINAL 04/14/22 10:27 Cult,Throat: Oral to, negative for Group A Strep and other beta Cult,Throat: hemolytic streptococci Performed at [address] [address] ([phone] [facility] Comment on above: Performed By: #### C BCWD #### [facility] [address] [place] [address] XR SHOULDER LEFT (MIN 2 VIEW S)on [...] Vitor Riojas MD 11/29/21 Final result Normal [facility] Bacterial susceptibility hager el by [facility]Con 10-28-2021 Bacterial susceptibility panel KAREEM (Isol) ORDER#: [id number] ORDERED BY: SPRING OROZCO SOURCE: Incision COLLECTED: 10/28/21 16:45 ANTIBIOTICS AT [facility].: RECEIVED : 10/28/21 22:09 Culture, Wound Aerobic, Anaerobic FINAL 11/03/21 07:50 Direct Exam: NO NEUTROPHILS SEEN Direct Exam: NO BACTERIA SEEN Cult,Aerobe/Anaerobe: Mixed skin to Cult,Aerobe/Anaerobe: No anaerobic organisms isolated at 5 days. Performed at [address] [place] [address] ([phone] Acinetobacter species LIGHT GROWTH Acinetobacter baumannii LIGHT GROWTH Acineto sp. A. baumannii ANTIBIOTICS KAREEM Interp KAREEM Interp Ampicillin/Sulbactam <=2 S >=32 R Ceftriaxone 16 I 16 I Ciprofloxacin <=0.25 S <=0.25 S Gentamicin <=1 S <=1 S Tobramycin <=1 S <=1 S S=SUSCEPTIBLE I=INTERMEDIATE R=RESISTANT Normal [facility] Comment on above: Performed By: #### 5 [id number] #### [facility] [address] [place] [address] Bacterial susceptibility panel KAREEM (Isol) ORDER#: [id number] ORDERED BY: ERNESTO, SPRING SOURCE: Incision COLLECTED: 10/28/21 16:45 ANTIBIOTICS AT BLAYNE.: RECEIVED : 10/28/21 22:09 Culture, Wound Aerobic, Anaerobic PRELIM 11/03/21 07:15 Direct Exam: NO NEUTROPHILS SEEN Direct Exam: NO BACTERIA SEEN Cult,Aerobe/Anaerobe: Mixed skin to Cult,Aerobe/Anaerobe: No anaerobic organisms isolated at 5 days. Performed at [address] [place] [address] ([phone] Acinetobacter species LIGHT GROWTH Acineto sp. ANTIBIOTICS KAREEM Interp Ampicillin/Sulbactam <=2 S Ceftriaxone 16 I Ciprofloxacin <=0.25 S Gentamicin <=1 S Tobramycin <=1 S S=SUSCEPTIBLE I=INTERMEDIATE R=RESISTANT Normal [facility] Comment on above: Performed By: #### C BCWD #### [facility] [address] [place] [address] CBC With Platelet and Differ entialon 10-28-2021 Abs Imm Granulocytes 0.0 K/uL Normal [facility] Comment on above: Performed By: #### C BCWD #### [facility] [address] [place] [address] Basophils (Bld) [#/Vol] 0.0 10*3/uL Normal 0.0-0.1 [facility] Comment on above: Performed By: #### C BCWD #### [facility] [address] [place] [address] Basophils/100 WBC (Bld) 0.1 % Normal 0.1-1.2 [facility] Comment on above: Performed By: #### C BCWD #### [facility] [address] [place] [address] Eosinophils (Bld) [#/Vol] 0.3 10*3/uL Normal 0.0-0.4 [facility] Comment on above: Performed By: #### C BCWD #### [facility] [address] [place] [address] Eosinophils/100 WBC (Bld) 3.1 % Normal 0.7-5.8 [facility] Comment on above: Performed By: #### C BCWD #### [facility] [address] [place] [address] Erythrocyte distribution width (RBC) [Ratio] 12.8 % Normal 11.7-14.4 [facility] Comment on above: Performed By: #### C BCWD #### [facility] [address] [place] [address] Hematocrit (Bld) [Volume fraction] 40.9 % Normal 37.0-47.0 [facility] Comment on above: Performed By: #### C BCWD #### [facility] [address] [place] [address] Hemoglobin (Bld) [Mass/Vol] 13.6 g/dL Normal 11.2-15.7 [facility] Comment on above: Performed By: #### C BCWD #### [facility] [address] [place] [address] Imm Granulocytes 0.2 % Normal [facility] Comment on above: Performed By: #### C BCWD #### [facility] [address] [place] [address] Lymphocytes (Bld) [#/Vol] 1.8 10*3/uL Normal 1.2-3.7 [facility] Comment on above: Performed By: #### C BCWD #### [facility] [address] [place] [address] Lymphocytes/100 WBC (Bld) 16.5 % Normal [facility] Comment on above: Performed By: #### C BCWD #### [facility] [address] [place] [address] MCH (RBC) [Entitic mass] 31.1 pg Normal 25.6-32.2 [facility] Comment on above: Performed By: #### C BCWD #### [facility] [address] [place] [address] MCHC 33.3 % Normal 32.2-35.5 [facility] Comment on above: Performed By: #### C BCWD #### [facility] [address] [place] [address] MCV (RBC) [Entitic vol] 93.4 fL Normal 79.4-94.8 [facility] Comment on above: Performed By: #### C BCWD #### [facility] [address] [place] [address] Monocytes (Bld) [#/Vol] 0.6 10*3/uL Normal 0.2-0.9 [facility] Comment on above: Performed By: #### C BCWD #### [facility] [address] [place] [address] Monocytes/100 WBC (Bld) 5.2 % Normal 4.7-12.5 [facility] Comment on above: Performed By: #### C BCWD #### [facility] [address] [place] [address] Neutrophils (Bld) [#/Vol] 7.9 10*3/uL Critically high 1.6-6.1 [facility] Comment on above: Performed By: #### C BCWD #### [facility] [address] [place] [address] Neutrophils/100 WBC (Bld) 74.9 % Critically high 34.0-71.1 [facility] Comment on above: Performed By: #### C BCWD #### [facility] [address] [place] [address] Platelets (Bld) [#/Vol] 192 10*3/uL Normal 182-369 [facility] Comment on above: Performed By: #### C BCWD #### [facility] [address] [place] [address] RBC (Bld) [#/Vol] 4.38 10*6/uL Normal 3.93-5.22 [facility] Comment on above: Performed By: #### C BCWD #### [facility] [address] [place] [address] WBC (Bld) [#/Vol] 10.6 10*3/uL Critically high 4.0-10.0 [facility] Comment on above: Performed By: #### C BCWD #### [facility] [address] [place] [address] CBC with Auto Differentialon 10-28-2021 Basophils (Bld) [#/Vol] 0.0 10*3/uL 0 - 0.1 K/uL [facility] Basophils/100 WBC (Bld) 0.1 % 0.1 - 1.2 % [facility] Eosinophils (Bld) [#/Vol] 0.3 10*3/uL 0 - 0.4 K/uL [facility] Eosinophils/100 WBC (Bld) 3.1 % 0.7 - 5.8 % [facility] Hematocrit (Bld) [Volume fraction] 40.9 % 37 - 47 % [facility] Hemoglobin (Bld) [Mass/Vol] 13.6 g/dL 11.2 - 15.7 g/dL [facility] Immature granulocytes (Bld) [#/Vol] 0.0 10*3/uL [facility] Immature granulocytes/100 WBC (Bld) 0.2 % [facility] Interpretation and review of laboratory results Abnormal [facility] Lymphocytes (Bld) [#/Vol] 1.8 10*3/uL 1.2 - 3.7 K/uL [facility] Lymphocytes/100 WBC (Bld) 16.5 % [facility] MCH (RBC) [Entitic mass] 31.1 pg 25.6 - 32.2 pg [facility] MCHC (RBC) [Mass/Vol] 33.3 % 32.2 - 35.5 % [facility] MCV (RBC) [Entitic vol] 93.4 fL 79.4 - 94.8 fL [facility] Monocytes (Bld) [#/Vol] 0.6 10*3/uL 0.2 - 0.9 K/uL [facility] Monocytes/100 WBC (Bld) 5.2 % 4.7 - 12.5 % [facility] Neutrophils Absolute 7.9 K/uL High 1.6 - 6 .1 K/uL [facility] Neutrophils/100 WBC (Bld) 74.9 % High 34 - 71.1 % [facility] Platelet distribution width (Bld) [Ratio] 12.8 % 11.7 - 14.4 % [facility] Platelets (Bld) [#/Vol] 192 10*3/uL 182 - 369 K/uL [facility] RBC (Bld) [#/Vol] 4.38 10*6/uL [facility] WBC (Bld) [#/Vol] 10.6 10*3/uL High 4 - 10 K/uL [facility] CT ABDOMEN PELVIS W IV CONTR [...] Melodie Ocampo MD 10/28/[address] [facility] CT ABDOMEN PELVIS W IV CONTR AST Additional Contrast? Noneon 10-28-2021 No acute abdominopelvic abnormality. [facility] EXAMINATION: CT OF THE ABDOMEN AND [...] stranding or fluid at the surgical site. [facility] Melodie Ocampo MD - 10/28/2021 EXAMINATION: [...] surgical site. IMPRESSION: No acute abdominopelvic abnormality. [facility] [employer]: Radiology Study observation (narrative) [facility] [employer]: CT ABDOMEN PELVIS W IV CONTR AST Additional Contrast? NoneOrdered By: Melodie Ocampo on 10-28-2021 [facility] Comprehensive Metabolic Pane l reflex Mgon 10-28-2021 Albumin [Mass/Vol] 4.4 g/dL Normal 3.5-4.6 [facility] Comment on above: Performed By: #### C MPX #### [facility] [address] [place] [address] ALP [Catalytic activity/Vol] 118 U/L Normal 40-130 [facility] Comment on above: Performed By: #### C MPX #### [facility] [address] [place] [address] ALT [Catalytic activity/Vol] 6 U/L Normal 0-33 [facility] Comment on above: Performed By: #### C MPX #### [facility] [address] [place] [address] Anion gap [Moles/Vol] 11 mmol/L Normal 9-15 [facility] Comment on above: Performed By: #### C MPX #### [facility] [address] [place] [address] AST [Catalytic activity/Vol] 8 U/L Normal 0-35 [facility] Comment on above: Performed By: #### C MPX #### [facility] [address] [place] [address] Bilirubin [Mass/Vol] 0.4 mg/dL Normal 0.2-0.7 [facility] Comment on above: Performed By: #### C MPX #### [facility] [address] [place] [address] Calcium [Mass/Vol] 9.7 mg/dL Normal 8.5-9.9 [facility] Comment on above: Performed By: #### C MPX #### [facility] [address] [place] [address] Chloride [Moles/Vol] 104 mmol/L Normal 95-107 [facility] Comment on above: Performed By: #### C MPX #### [facility] [address] [place] [address] CO2 [Moles/Vol] 23 mmol/L Normal 20-31 [facility] Comment on above: Performed By: #### C MPX #### [facility] [address] [place] [address] Creatinine [Mass/Vol] 0.60 mg/dL Normal 0.50-0.90 [facility] Comment on above: Performed By: #### C MPX #### [facility] [address] [place] [address] GFR >60.0 Normal >60 [facility] Comment on above: Result Comment: >60 mL/min/1.73m2 EGFR, calc. for ages 18 and older using the MDRD formula (not corrected for weight), is valid for stable renal function. Performed By: #### C MPX #### [facility] [address] [place] [address] GFR/1.73 sq M.predicted among blacks MDRD (S/P/Bld) [Vol rate/Area] mL/min/{1.73_m2} Normal >60 [facility] Comment on above: Result Comment: >60 mL/min/1.73m2 EGFR, calc. for ages 18 and older using the MDRD formula (not corrected for weight), is valid for stable renal function. Performed By: #### C MPX #### [facility] [address] [place] [address] Globulin (S) [Mass/Vol] 3.1 g/dL Normal 2.3-3.5 [facility] Comment on above: Performed By: #### C MPX #### [facility] [address] [place] [address] Glucose [Mass/Vol] 95 mg/dL Normal 70-99 [facility] Comment on above: Performed By: #### C MPX #### [facility] [address] [place] [address] Magnesium [Moles/Vol] 4.2 mmol/L Normal 3.4-4.9 [facility] Comment on above: Performed By: #### C MPX #### [facility] [address] [place] [address] Protein [Mass/Vol] 7.5 g/dL Normal 6.3-8.0 [facility] Comment on above: Performed By: #### C MPX #### [facility] [address] [place] [address] Sodium [Moles/Vol] 138 mmol/L Normal 135-144 [facility] Comment on above: Performed By: #### C MPX #### [facility] [address] [place] [address] Urea nitrogen [Mass/Vol] 14 mg/dL Normal 6-20 [facility] Comment on above: Performed By: #### C MPX #### [facility] [address] [place] [address] Comprehensive Metabolic Pane l w/ Reflex to MGon 10-28-2021 Albumin [Mass/Vol] 4.4 g/dL 3.5 - 4.6 g/dL [facility] ALP (Bld) [Catalytic activity/Vol] 118 U/L 40 - 130 U/L [facility] ALT [Catalytic activity/Vol] 6 U/L 0 - 33 U/L [facility] Anion gap [Moles/Vol] 11 mmol/L [facility] AST [Catalytic activity/Vol] 8 U/L 0 - 35 U/L [facility] Bilirubin [Mass/Vol] 0.4 mg/dL 0.2 - 0 .7 mg/dL [facility] Calcium [Mass/Vol] 9.7 mg/dL 8.5 - 9.9 mg/dL [facility] Chloride [Moles/Vol] 104 mmol/L [facility] CO2 [Moles/Vol] 23 mmol/L [facility] Creatinine [Mass/Vol] 0.6 mg/dL 0.5 - 0.9 mg/dL [facility] Free PSA/Total PSA [Mass fraction] 7.5 g/dL 6.3 - 8 g/dL [facility] GFR >60.0 60 - PINF [facility] Comment on above: >60 mL/min/1.73m2 EG FR, calc. for ages 18 and older using the MDRD formula (not corrected for weight), is valid for stable renal function. GFR Non- >60.0 60 - PINF [facility] Comment on above: >60 mL/min/1.73m2 EG FR, calc. for ages 18 and older using the MDRD formula (not corrected for weight), is valid for stable renal function. Globulin (S) [Mass/Vol] 3.1 g/dL 2.3 - 3.5 g/dL [facility] Glucose [Mass/Vol] 95 mg/dL 70 - 99 mg/dL [facility] Potassium reflex Magnesium 4.2 [facility] Sodium [Moles/Vol] 138 mmol/L [facility] Urea nitrogen (BldV) [Mass/Vol] 14 mg/dL 6 - 20 mg/dL [facility] Culture, Wound AerobicShen 10-28-2021 Culture, Wound Aerobic, Anaerobic ORDER#: [id number] ORDERED BY: SPRING OROZCO SOURCE: Incision COLLECTED: 10/28/21 16:45 ANTIBIOTICS AT [facility].: RECEIVED : 10/28/21 22:09 Culture, Wound Aerobic, Anaerobic PRELIM 11/01/21 08:12 Direct Exam: NO NEUTROPHILS SEEN Direct Exam: NO BACTERIA SEEN Cult,Aerobe/Anaerobe: GRAM NEGATIVE RODS Cult,Aerobe/Anaerobe: LIGHT GROWTH Cult,Aerobe/Anaerobe: Mixed skin to Cult,Aerobe/Anaerobe: No anaerobic organisms isolated at 3 days. Performed at [employer] [facility] [place] [address] [facility] Comment on above: Performed By: #### I CWAN #### [facility] [address] [place] [address] , Urineon 2 Beta HCG ( test) Ql (U) Negative Detects HCG level >20 MIU/mL [facility] UR HCG Qualitativeon 022 Beta HCG ( test) Ql (U) Negative Normal Detects HC [facility] Comment on above: Performed By: #### C BCWD #### [facility] [address] [place] [address] Urinalysis with Reflex to Cu ltureon 10-28-2021 Bilirubin Urine Negative Negative [facility] Blood, Urine Negative Negative [facility] Clarity, UA Clear Clear [facility] Color, UA Yellow Straw/Yellow [facility] Glucose, Ur Negative Negative mg/dL [facility] Ketones Ql (U) Negative Negative mg/dL [facility] Leukocyte esterase Test strip Ql (U) Negative Negative [facility] Nitrite, Urine Negative Negative [facility] pH, UA 5.5 5 - 9 [facility] Protein, UA Negative Negative mg/dL [facility] Specific [place], UA 1.015 1.005 - 1.03 [facility] Urine Reflex to Culture Not Indicated [facility] Urobilinogen, Urine 0.2 NINF [facility] Urinalysis, reflex to cultur minoo 10-28-2021 Bilirubin Ql (U) Negative Normal Negative [facility] Comment on above: Performed By: #### U AR #### [facility] [address] [place] [address] Clarity (U) Clear Normal Clear [facility] Comment on above: Performed By: #### U AR #### [facility] [address] [place] [address] Color (U) Yellow Normal Straw/Dickey [facility] Comment on above: Performed By: #### U AR #### [facility] [address] [place] [address] Glucose Ql (U) Negative Normal Negative [facility] Comment on above: Performed By: #### U AR #### [facility] [address] [place] [address] Hemoglobin Ql (U) Negative Normal Negative [facility] Comment on above: Performed By: #### U AR #### [facility] [address] [place] [address] Ketones Ql (U) Negative Normal Negative [facility] Comment on above: Performed By: #### U AR #### [facility] [address] [place] [address] Leukocyte esterase Test strip Ql (U) Negative Normal Negative [facility] Comment on above: Performed By: #### U AR #### [facility] [address] [place] [address] Nitrite Ql (U) Negative Normal Negative [facility] Comment on above: Performed By: #### U AR #### [facility] [address] [place] [address] pH (U) 5.5 [pH] Normal 5.0-9.0 [facility] Comment on above: Performed By: #### U AR #### [facility] [address] [place] [address] Protein Ql (U) Negative Normal Negative [facility] Comment on above: Performed By: #### U AR #### [facility] [address] [place] [address] Specific gravity (U) [Rel density] 1.015 Normal 1.005-1.03 [facility] Comment on above: Performed By: #### U AR #### [facility] [address] [place] [address] Urine Reflexed to Culture Not Indicated Normal [facility] Comment on above: Performed By: #### U AR #### [facility] [address] [place] [address] Urobilinogen Qn (U) 0.2 {Ginger'U}/dL Normal < 2.0 [facility] Comment on above: Performed By: #### U AR #### [facility] [address] [place] [address] Allergen, Food, Comprehensiv e Profile 08-31-2021 Allergen, Food, Barley IgE <0.10 Normal [facility] Allergen, Food, Beef IgE <0.10 Normal [facility] Allergen, Food, Cabbage <0.10 [facility] Allergen, Food, Carrot <0.10 [facility] Allergen, Food, Chicken <0.10 [facility] Allergen, Food, Codfish IgE <0.10 Normal [facility] Allergen, Food, [place] IgE <0.10 Normal [facility] Allergen, Food, Crab IgE <0.10 [facility] Allergen, Food, Egg White <0.10 Normal [facility] Allergen, Food, Grape IgE <0.10 Normal [facility] Allergen, Food, Lettuce IgE <0.10 [facility] Allergen, Food, Milk (Cow) IgE <0.10 [facility] Allergen, Food, [place] <0.10 [facility] Allergen, Food, Oat IgE <0.10 [facility] Allergen, Food, [place] IgE <0.10 [facility] Allergen, Food, Peanut IgE <0.10 [facility] Allergen, Food, Pepper C. annuum IgE <0.10 [facility] Allergen, Food, Pork IgE <0.10 [facility] Comment on above: Result Comment: [facility] [employer] [address] [place] [address] ([phone] Allergen, Food, Potato <0.10 Normal [facility] Allergen, Food, Rice IgE <0.10 Normal [facility] Allergen, Food, [place] IgE <0.10 Normal [facility] Allergen, Food, Shrimp IgE <0.10 Normal [facility] Allergen, Food, Soybean IgE <0.10 Normal [facility] Allergen, Food, Tomato IgE <0.10 Normal [facility] Allergen, Food, Tuna IgE <0.10 Normal [facility] Allergen, Food, Wheat IgE <0.10 Normal [facility] Comment on above: Result Comment: [...] even anaphylaxis. Immunoglobulin E 53 IU/mL Normal [facility] Comment on above: Result Comment: [facility] [address] [place] [address] CBC With Platelet and Differ entialon 08-21-2021 Abs Imm Granulocytes 0.0 K/uL Normal [facility] Comment on above: Performed By: #### C BCWD #### [facility] [address] [facility] [address] Basophils (Bld) [#/Vol] 0.0 10*3/uL Normal 0.0-0.1 [facility] Comment on above: Performed By: #### C BCWD #### [facility] [address] [place] [address] Basophils/100 WBC (Bld) 0.3 % Normal 0.1-1.2 [facility] Comment on above: Performed By: #### C BCWD #### [facility] [address] [place] [address] Eosinophils (Bld) [#/Vol] 0.2 10*3/uL Normal 0.0-0.4 [facility] Comment on above: Performed By: #### C BCWD #### [facility] [address] [place] [address] Eosinophils/100 WBC (Bld) 2.4 % Normal 0.7-5.8 [facility] Comment on above: Performed By: #### C BCWD #### [facility] [address] [place] [address] Erythrocyte distribution width (RBC) [Ratio] 12.6 % Normal 11.7-14.4 [facility] Comment on above: Performed By: #### C BCWD #### [facility] [address] [place] [address] Hematocrit (Bld) [Volume fraction] 41.7 % Normal 37.0-47.0 [facility] Comment on above: Performed By: #### C BCWD #### [facility] [address] [place] [address] Hemoglobin (Bld) [Mass/Vol] 13.6 g/dL Normal 11.2-15.7 [facility] Comment on above: Performed By: #### C BCWD #### [facility] [address] [place] [address] Imm Granulocytes 0.3 % Normal [facility] Comment on above: Performed By: #### C BCWD #### [facility] [address] [place] [address] Lymphocytes (Bld) [#/Vol] 2.2 10*3/uL Normal 1.2-3.7 [facility] Comment on above: Performed By: #### C BCWD #### [facility] [address] [place] [address] Lymphocytes/100 WBC (Bld) 25.3 % Normal [facility] Comment on above: Performed By: #### C BCWD #### [facility] [address] [place] [address] MCH (RBC) [Entitic mass] 30.8 pg Normal 25.6-32.2 [facility] Comment on above: Performed By: #### C BCWD #### [facility] [address] [place] [address] MCHC 32.6 % Normal 32.2-35.5 [facility] Comment on above: Performed By: #### C BCWD #### [facility] [address] [place] [address] MCV (RBC) [Entitic vol] 94.6 fL Normal 79.4-94.8 [facility] Comment on above: Performed By: #### C BCWD #### [facility] [address] [place] [address] Monocytes (Bld) [#/Vol] 0.4 10*3/uL Normal 0.2-0.9 [facility] Comment on above: Performed By: #### C BCWD #### [facility] [address] [place] [address] Monocytes/100 WBC (Bld) 4.4 % Low 4.7-12.5 [facility] Comment on above: Performed By: #### C BCWD #### [facility] [address] [place] [address] Neutrophils (Bld) [#/Vol] 5.8 10*3/uL Normal 1.6-6.1 [facility] Comment on above: Performed By: #### C BCWD #### [facility] [address] [place] [address] Neutrophils/100 WBC (Bld) 67.3 % Normal 34.0-71.1 [facility] Comment on above: Performed By: #### C BCWD #### [facility] [address] [place] [address] Platelets (Bld) [#/Vol] 200 10*3/uL Normal 182-369 [facility] Comment on above: Performed By: #### C BCWD #### [facility] [address] [place] [address] RBC (Bld) [#/Vol] 4.41 10*6/uL Normal 3.93-5.22 [facility] Comment on above: Performed By: #### C BCWD #### [facility] [address] [place] [address] WBC (Bld) [#/Vol] 8.6 10*3/uL Normal 4.0-10.0 [facility] Comment on above: Performed By: #### C BCWD #### [facility] [address] [place] [address] CBC with Auto Differentialon 08-21-2021 Basophils (Bld) [#/Vol] 0.0 10*3/uL 0.0 - 0.1 K/uL [facility] Basophils/100 WBC (Bld) 0.3 % 0.1 - 1.2 % [facility] Eosinophils (Bld) [#/Vol] 0.2 10*3/uL 0.0 - 0.4 K/uL [facility] Eosinophils/100 WBC (Bld) 2.4 % 0.7 - 5.8 % [facility] Hematocrit (Bld) [Volume fraction] 41.7 % 37.0 - 47.0 % [facility] Hemoglobin (Bld) [Mass/Vol] 13.6 g/dL 11.2 - 15.7 g/dL [facility] Immature granulocytes (Bld) [#/Vol] 0.0 10*3/uL [facility] Immature granulocytes/100 WBC (Bld) 0.3 % [facility] Interpretation and review of laboratory results Abnormal [facility] Lymphocytes (Bld) [#/Vol] 2.2 10*3/uL 1.2 - 3.7 K/uL [facility] Lymphocytes/100 WBC (Bld) 25.3 % [facility] MCH (RBC) [Entitic mass] 30.8 pg 25.6 - 32.2 pg [facility] MCHC (RBC) [Mass/Vol] 32.6 % 32.2 - 35.5 % [facility] MCV (RBC) [Entitic vol] 94.6 fL 79.4 - 94.8 fL [facility] Monocytes (Bld) [#/Vol] 0.4 10*3/uL 0.2 - 0.9 K/uL [facility] Monocytes/100 WBC (Bld) 4.4 % Low 4.7 - 12.5 % [facility] Neutrophils Absolute 5.8 K/uL 1.6 - 6 .1 K/uL [facility] Neutrophils/100 WBC (Bld) 67.3 % 34.0 - 71.1 % [facility] Platelet distribution width (Bld) [Ratio] 12.6 % 11.7 - 14.4 % [facility] Platelets (Bld) [#/Vol] 200 10*3/uL 182 - 369 K/uL [facility] RBC (Bld) [#/Vol] 4.41 10*6/uL [facility] WBC (Bld) [#/Vol] 8.6 10*3/uL 4.0 - 10.0 K/uL [facility] COVID-19on 08-21-2021 SARS-CoV-2 (COVID-19) RNA JOSIE+probe Ql (Unsp spec) Not detected Normal Not Detect [facility] Comment on above: Result Comment: Brittani [...] authorized laboratories. Fact sheet for Healthcare Providers: https://www.fda.gov/media/509662/download Fact sheet for Patients: https://www.fda.gov/media/743931/download METHODOLOGY: Isothermal Nucleic Acid Amplification Performed By: #### C TAVON #### [facility] [address] [place] [id number] COVID-19, Rapidon 08-21-2021 SARS-CoV-2 (COVID-19) RNA JOSIE+probe Ql (Unsp spec) Not detected Not Detected [facility] Comment on above: Rapid NAAT: Negative results [...] authorized laboratories. Fact sheet for Healthcare Providers: https://www.fda.gov/media/427978/download Fact sheet for Patients: https://www.fda.gov/media/833863/download METHODOLOGY: Isothermal Nucleic Acid Amplification [facility] CT ABDOMEN PELVIS W [...] Some of this report was completed using [email or web address] voice-recognition technology and may include unintended errors [...] Mckay Solis MD 08/21/[address] [facility] Comprehensive Metabolic Pane l reflex Mgon 08-21-2021 Albumin [Mass/Vol] 4.3 g/dL Normal 3.5-4.6 [facility] Comment on above: Performed By: #### C BCWD #### [facility] [address] [place] [address] ALP [Catalytic activity/Vol] 116 U/L Normal 40-130 [facility] Comment on above: Performed By: #### C BCWD #### [facility] [address] [place] [address] ALT [Catalytic activity/Vol] 8 U/L Normal 0-33 [facility] Comment on above: Performed By: #### C BCWD #### [facility] [address] [place] [address] Anion gap [Moles/Vol] 13 mmol/L Normal 9-15 [facility] Comment on above: Performed By: #### C BCWD #### [facility] [address] [place] [address] AST [Catalytic activity/Vol] 10 U/L Normal 0-35 [facility] Comment on above: Performed By: #### C BCWD #### [facility] [address] [place] [address] Bilirubin [Mass/Vol] mg/dL Normal 0.2-0.7 [facility] Comment on above: Performed By: #### C BCWD #### [facility] [address] [place] [address] Calcium [Mass/Vol] 9.3 mg/dL Normal 8.5-9.9 [facility] Comment on above: Performed By: #### C BCWD #### [facility] [address] [place] [address] Chloride [Moles/Vol] 105 mmol/L Normal 95-107 [facility] Comment on above: Performed By: #### C BCWD #### [facility] [address] [place] [address] CO2 [Moles/Vol] 22 mmol/L Normal 20-31 [facility] Comment on above: Performed By: #### C BCWD #### [facility] [address] [place] [address] Creatinine [Mass/Vol] 0.48 mg/dL Low 0.50-0.90 [facility] Comment on above: Performed By: #### C BCWD #### [facility] [address] [place] [address] GFR >60.0 Normal >60 [facility] Comment on above: Result Comment: >60 mL/min/1.73m2 EGFR, calc. for ages 18 and older using the MDRD formula (not corrected for weight), is valid for stable renal function. Performed By: #### C BCWD #### [facility] [address] [place] [address] GFR/1.73 sq M.predicted among blacks MDRD (S/P/Bld) [Vol rate/Area] mL/min/{1.73_m2} Normal >60 [facility] Comment on above: Result Comment: >60 mL/min/1.73m2 EGFR, calc. for ages 18 and older using the MDRD formula (not corrected for weight), is valid for stable renal function. Performed By: #### C BCWD #### [facility] [address] [place] [address] Globulin (S) [Mass/Vol] 2.5 g/dL Normal 2.3-3.5 [facility] Comment on above: Performed By: #### C BCWD #### [facility] [address] [place] [address] Glucose [Mass/Vol] 114 mg/dL Critically high 70-99 [facility] Comment on above: Performed By: #### C BCWD #### [facility] [address] [place] [address] Magnesium [Moles/Vol] 3.6 mmol/L Normal 3.4-4.9 [facility] Comment on above: Performed By: #### C BCWD #### [facility] [address] [place] [address] Protein [Mass/Vol] 6.8 g/dL Normal 6.3-8.0 [facility] Comment on above: Performed By: #### C BCWD #### [facility] [address] [place] [address] Sodium [Moles/Vol] 140 mmol/L Normal 135-144 [facility] Comment on above: Performed By: #### C BCWD #### [facility] [address] [place] [address] Urea nitrogen [Mass/Vol] 10 mg/dL Normal 6-20 [facility] Comment on above: Performed By: #### C BCWD #### [facility] [address] [place] [address] Comprehensive Metabolic Pane l w/ Reflex to MGon 08-21-2021 Albumin [Mass/Vol] 4.3 g/dL 3.5 - 4.6 g/dL [facility] ALP (Bld) [Catalytic activity/Vol] 116 U/L 40 - 130 U/L [facility] ALT [Catalytic activity/Vol] 8 U/L 0 - 33 U/L [facility] Anion gap [Moles/Vol] 13 mmol/L [facility] AST [Catalytic activity/Vol] 10 U/L 0 - 35 U/L [facility] Bilirubin [Mass/Vol] mg/dL 0.2 - 0 .7 mg/dL [facility] Calcium [Mass/Vol] 9.3 mg/dL 8.5 - 9.9 mg/dL [facility] Chloride [Moles/Vol] 105 mmol/L [facility] CO2 [Moles/Vol] 22 mmol/L [facility] Creatinine [Mass/Vol] 0.48 mg/dL Low 0.50 - 0.90 mg/dL [facility] Free PSA/Total PSA [Mass fraction] 6.8 g/dL 6.3 - 8.0 g/dL [facility] GFR >60.0 >60 [facility] Comment on above: >60 mL/min/1.73m2 EG FR, calc. for ages 18 and older using the MDRD formula (not corrected for weight), is valid for stable renal function. GFR Non- >60.0 >60 [facility] Comment on above: >60 mL/min/1.73m2 EG FR, calc. for ages 18 and older using the MDRD formula (not corrected for weight), is valid for stable renal function. Globulin (S) [Mass/Vol] 2.5 g/dL 2.3 - 3.5 g/dL [facility] Glucose [Mass/Vol] 114 mg/dL High 70 - 99 mg/dL [facility] Interpretation and review of laboratory results Abnormal [facility] Potassium reflex Magnesium 3.6 [facility] Sodium [Moles/Vol] 140 mmol/L [facility] Urea nitrogen (BldV) [Mass/Vol] 10 mg/dL 6 - 20 mg/dL [facility] Lipaseon 08-21-2021 Lipase [Catalytic activity/Vol] 18 U/L Normal 12-95 [facility] Comment on above: Performed By: #### L IPAS #### [facility] [address] [place] [address] Lipase [Catalytic activity/Vol] 18 U/L 12 - 95 U/L [facility] No Panel Informationon 08-21 [facility] , Urineon 2 Beta HCG ( test) Ql (U) Negative Detects HCG level >20 MIU/mL [facility] UR HCG Qualitativeon 022 Beta HCG ( test) Ql (U) Negative Normal Detects [facility] Comment on above: Performed By: #### C BCWD #### [facility] [address] [place] [address] Urinalysis with Reflex to Cu ltureon 08-21-2021 Bilirubin Urine Negative Negative [facility] Blood, Urine Negative Negative [facility] Clarity, UA Clear Clear [facility] Color, UA Yellow Straw/Yellow [facility] Glucose, Ur Negative Negative mg/dL [facility] Ketones Ql (U) Negative Negative mg/dL [facility] Leukocyte esterase Test strip Ql (U) Negative Negative [facility] Nitrite, Urine Negative Negative [facility] pH, UA 5.5 [facility] Protein, UA Negative Negative mg/dL [facility] Specific [place], UA <=1.005 [facility] Urine Reflex to Culture Not Indicated [facility] Urobilinogen, Urine 0.2 <2.0 E.U./dL [facility] Urinalysis, reflex to cultur minoo 08-21-2021 Bilirubin Ql (U) Negative Normal Negative [facility] Comment on above: Performed By: #### C BCWD #### [facility] [address] [place] [address] Clarity (U) Clear Normal Clear [facility] Comment on above: Performed By: #### C BCWD #### [facility] [address] [place] [address] Color (U) Yellow Normal Straw/Dickey [facility] Comment on above: Performed By: #### C BCWD #### [facility] [address] [place] [address] Glucose Ql (U) Negative Normal Negative [facility] Comment on above: Performed By: #### C BCWD #### [facility] [address] [place] [address] Hemoglobin Ql (U) Negative Normal Negative [facility] Comment on above: Performed By: #### C BCWD #### [facility] [address] [place] [address] Ketones Ql (U) Negative Normal Negative [facility] Comment on above: Performed By: #### C BCWD #### [facility] [address] [place] [address] Leukocyte esterase Test strip Ql (U) Negative Normal Negative [facility] Comment on above: Performed By: #### C BCWD #### [facility] [address] [place] [address] Nitrite Ql (U) Negative Normal Negative [facility] Comment on above: Performed By: #### C BCWD #### [facility] [address] [place] [address] pH (U) 5.5 [pH] Normal 5.0-9.0 [facility] Comment on above: Performed By: #### C BCWD #### [facility] [address] [place] [address] Protein Ql (U) Negative Normal Negative [facility] Comment on above: Performed By: #### C BCWD #### [facility] [address] [place] [address] Specific gravity (U) [Rel density] <=1.005 Normal 1.005-1.03 [facility] Comment on above: Performed By: #### C BCWD #### [facility] [address] [place] [address] Urine Reflexed to Culture Not Indicated Normal [facility] Comment on above: Performed By: #### C BCWD #### [facility] [address] [place] [address] Urobilinogen Qn (U) 0.2 {Ginger'U}/dL Normal < 2.0 [facility] Comment on above: Performed By: #### C BCWD #### [facility] [address] [place] [address] CBC WITH AUTO DIFFERENTIALon 02-29-2020 Basophils (Bld) [#/Vol] 0.0 10*3/uL 0 - 0.2 K/uL [place] Basophils/100 WBC (Bld) 0.4 % [place] Eosinophils (Bld) [#/Vol] 0.2 10*3/uL 0 - 0.7 K/uL [place] Eosinophils/100 WBC (Bld) 2.6 % [place] Erythrocyte distribution width (RBC) [Ratio] 13.6 % 11.5 - 14.5 % [place] Hematocrit (Bld) [Volume fraction] 40.3 % 37 - 47 % [place] Hemoglobin (Bld) [Mass/Vol] 13.6 g/dL 12 - 16 g/dL [place] Lymphocytes (Bld) [#/Vol] 1.7 10*3/uL 1 - 4.8 K/uL [place] Lymphocytes/100 WBC (Bld) 21.0 % [place] MCH (RBC) [Entitic mass] 31.0 pg 27 - 31.3 pg [place] MCHC (RBC) [Mass/Vol] 33.9 % 33 - 37 % [place] MCV (RBC) [Entitic vol] 91.6 fL 82 - 100 fL [place] Monocytes (Bld) [#/Vol] 0.4 10*3/uL 0.2 - 0.8 K/uL [place] Monocytes/100 WBC (Bld) 4.6 % [place] Neutrophils Absolute 5.6 K/uL 1.4 - 6 .5 K/uL [place] Neutrophils/100 WBC (Bld) 71.4 % [place] Platelets (Bld) [#/Vol] 195 10*3/uL 130 - 400 K/uL [place] RBC (Bld) [#/Vol] 4.40 10*6/uL [place] WBC (Bld) [#/Vol] 7.9 10*3/uL 4.8 - 10.8 K/uL [place] COVID-19on 02-29-2020 SARS-CoV-2, NAAT Not Detected Not Detected [place] Comment on above: Rapid NAAT: Negative [...] authorized laboratories. Fact sheet for Healthcare Providers: https://www.fda.gov/media/109933/download Fact sheet for Patients: https://www.fda.gov/media/117129/download METHODOLOGY: Isothermal Nucleic Acid Amplification POC UR-QUALon 02-11 Beta HCG ( test) Ql (U) Negative Negative [place] Lot Number [id number] [place] Negative QC Pass/Fail Pass [place] Positive QC Pass/Fail Pass [place] Hemoglobinon 11-03-2019 Hemoglobin (Bld) [Mass/Vol] 11.2 g/dL Low 12 - 16 g/dL [place] Interpretation and review of laboratory results Abnormal [place] RPRon 11-03-2019 Reagin Ab RPR Ql (S) Non-reactive Non-reactive [place] CBC auto differentialon 10-13 Basophils (Bld) [#/Vol] 0.0 10*3/uL 0 - 0.2 K/uL [place] Basophils/100 WBC (Bld) 0.3 % [place] Eosinophils (Bld) [#/Vol] 0.1 10*3/uL 0 - 0.7 K/uL [place] Eosinophils/100 WBC (Bld) 1.2 % [place] Erythrocyte distribution width (RBC) [Ratio] 13.4 % 11.5 - 14.5 % [place] Hematocrit (Bld) [Volume fraction] 34.9 % Low 37 - 47 % [place] Hemoglobin (Bld) [Mass/Vol] 11.7 g/dL Low 12 - 16 g/dL [place] Interpretation and review of laboratory results Abnormal [place] Lymphocytes (Bld) [#/Vol] 1.4 10*3/uL 1 - 4.8 K/uL [place] Lymphocytes/100 WBC (Bld) 11.4 % [place] MCH (RBC) [Entitic mass] 31.2 pg 27 - 31.3 pg [place] MCHC (RBC) [Mass/Vol] 33.6 % 33 - 37 % [place] MCV (RBC) [Entitic vol] 93.0 fL 82 - 100 fL [place] Monocytes (Bld) [#/Vol] 0.5 10*3/uL 0.2 - 0.8 K/uL [place] Monocytes/100 WBC (Bld) 4.2 % [place] Neutrophils Absolute 10.1 K/uL High 1.4 - 6 .5 K/uL [place] Neutrophils/100 WBC (Bld) 82.9 % [place] Platelets (Bld) [#/Vol] 191 10*3/uL 130 - 400 K/uL [place] RBC (Bld) [#/Vol] 3.75 10*6/uL Low [place] WBC (Bld) [#/Vol] 12.1 10*3/uL High 4.8 - 10.8 K/uL [place] Comprehensive Metabolic Pane fortunato 11-02-2019 Albumin [Mass/Vol] 3.2 g/dL Low 3.5 - 4.6 g/dL [place] ALP [Catalytic activity/Vol] 147 U/L High 40 - 130 U/L [place] ALT [Catalytic activity/Vol] 6 U/L 0 - 33 U/L [place] Anion gap [Moles/Vol] 10 mmol/L [place] AST [Catalytic activity/Vol] 7 U/L 0 - 35 U/L [place] Bilirubin Ql (U) <0.2 0.2 - 0.7 mg/dL [place] Calcium [Mass/Vol] 8.4 mg/dL Low 8.5 - 9.9 mg/dL [place] Chloride [Moles/Vol] 104 mmol/L [place] CO2 [Moles/Vol] 21 mmol/L [facility] [place] [place] Creatinine [Mass/Vol] 0.3 mg/dL Low 0.5 - 0.9 mg/dL [place] GFR >60.0 >60 [place] Comment on above: >60 mL/min/1.73m2 EG FR, calc. for ages 18 and older using the MDRD formula (not corrected for weight), is valid for stable renal function. GFR Non- >60.0 >60 [place] Comment on above: >60 mL/min/1.73m2 EG FR, calc. for ages 18 and older using the MDRD formula (not corrected for weight), is valid for stable renal function. Globulin (S) [Mass/Vol] 2.8 g/dL 2.3 - 3.5 g/dL [place] Glucose [Mass/Vol] 103 mg/dL High 70 - 99 mg/dL [place] Interpretation and review of laboratory results Abnormal [place] Potassium [Moles/Vol] 3.9 mmol/L [place] Protein [Mass/Vol] 6.0 g/dL Low 6.3 - 8 g/dL [place] Sodium [Moles/Vol] 135 mmol/L [place] Urea nitrogen [Mass/Vol] 8 mg/dL 6 - 20 mg/dL [place] DRUG SCREEN MULTI URINEon Amphetamine Screen, Urine Negative Negative <1000 ng/mL [place] Barbiturate Screen, Ur Negative Negative < 200 ng/mL [place] Benzodiazepine Screen, Urine Negative Negative < 200 ng/mL [place] Cannabinoid Scrn, Ur Negative Negativ e < 50 ng/mL [place] Cocaine Metabolite Screen, Urine Negative Negative < 300 ng/mL [place] Drug Screen Comment: see below [place] Comment on above: This method is a scr eening test to detect only these drug classes as part of a medical workup. Confirmatory testing by another method should be ordered if clinically indicated. Methadone Screen, Urine Negative Negative <300 ng/mL [place] Comment on above: Effective: 10/20/18 New Test for Qualitative Drug Screen. Opiate Scrn, Ur Negative Negative < 300 ng/mL [place] Oxycodone Urine Negative Negative <10 0 ng/mL [place] Comment on above: Effective: 10/20/18 New Test for Qualitative Drug Screen. PCP Screen, Urine Negative Negative < 25 ng/mL [place] Propoxyphene Scrn, Ur Negative Negative <300 ng/mL [place] Comment on above: Effective: 10/20/18 New Test for Qualitative Drug Screen. Hepatitis B surface antigeno n 11-02-2019 Hep B S Ag Interp Non-reactive [place] Rubella antibody, IgGon 10-13 Rubella Antibody IgG 69.5 IU/mL [place] Comment on above: Patient's result ind icates immunity. Default Normal Ranges >=10 Presumed Immune <10 Presumed Not immune TYPE AND SCREENon 11-02-2019 ABO/Rh Positive [place] Urinalysison 11-02-2019 Bilirubin Urine Negative Negative [place] Blood, Urine Negative Negative [place] Clarity, UA Clear Clear [place] Color, UA Yellow Straw/Yellow [place] Glucose, Ur Negative Negative mg/dL [place] Ketones Ql (U) Negative Negative mg/dL [place] Leukocyte esterase Test strip Ql (U) Negative Negative [place] Nitrite, Urine Negative Negative [place] pH, UA 7.5 [place] Protein (U) [Mass/Vol] Negative Negative mg/dL [place] Specific [place], UA 1.020 [place] Urobilinogen, Urine 0.2 <2.0 E.U./dL [place] Otheron 06-19-2019 APPROPRIATE GROWTH SINCE LAST SONOGRAM. [place] Sonogram #: 1 Presentation: Transverse, head [...] the amniotic fluid is within normal limits. [facility] [place], [place] Manny, Chpo Incoming Radiant Results From [employer] - 06/19/2019 5:09 PM EDT Sonogram #: [...] limits. IMPRESSION: APPROPRIATE GROWTH SINCE LAST SONOGRAM. [facility] [place] US OB LESS THAN 14 WEEKS SIN GLE OR FIRST GESTATIONon 04-14-2019 THERE IS A SINGLE IU P WITH ESTIMATED GESTATIONAL AGE BASED UPON CROWN-RUMP LENGTH OF 10 WEEKS 2 DAYS +/- 1 WEEK WITH HEART RATE OF 155 BPM. ANATOMY IS NOT ASSESSED DUE TO EARLY GESTATIONAL AGE. THE RIGHT OVARY IS SURGICALLY ABSENT. THE LEFT OVARY SUBMITTED VISUALIZED. [facility] TRANSABDOMINAL EXAMINATION OF THE PELVIS CLINICAL [...] ovary is not visualized. No free fluid. [place] Manny, Ch[place] Incoming Radiant Results From [employer] - 04/14/2019 4:16 PM EST TRANSABDOMINAL EXAMINATION [...] SURGICALLY ABSENT. THE LEFT OVARY SUBMITTED VISUALIZED. [place] PROGRESSon 09-30-2018 PROGRESS HNO ID: [id number] Author: Maranda Celis Service: ? Author Type: SIENE MAKER Type: Progress Notes Filed: 09/30/2018 3:29 PM [...] ROGER September 30, 2018 2:08 PM Normal [facility] PROGRESSon 04-24-2018 PROGRESS HNO ID: [id number] Author: Maranda Celis Service: ? Author Type: SIENE MAKER Type: Progress Notes Filed: 04/24/2018 3:32 PM [...] OD April 24, 2018 3:31 PM Normal [facility] Office Visit (Urgent Care)on 08-21-2017 Office Visit (Urgent Care) Chief Complaint Rash History of Present [id number] female who 2 hours ago was sitting [...] 08/21/2017 5:38:10 PM Vitals Vital Signs Recorded: [id number]. 5 FHeart [id number] [id number] Height5 ft 3 [id number] lb BMI Emxnxrzxlq30TYP Calculated1.83O2 Whpogkorpr97Ousi Scale0 Physical ExamPatient appears in no apparent [...] Aug 21 2017 5:57PM EST (Author) Normal [facility] Vital Signs Date Time Vital Sign Value Performing Clinician Gladysi jesus 12-16-2021 07:12-0400 Body height 160 cm Sulema Teran DO Work Phone: [employer] 12-16-2021 07:12-0400 Body mass index (BMI) [Ratio] 31.89 kg/m2 Sulema De La Cruzin DO Work Phone: [employer] 12-16-2021 07:12-0400 Body temperature 98.91 [degF] Sulema De La Cruzin DO Work Phone: [employer] 12-16-2021 07:12-0400 Body weight 81.65 kg Sulema De La Cruzin DO Work Phone: [employer] 12-16-2021 07:12-0400 Diastolic blood pressure 84 mm[Hg] Sulema De La Cruzin DO Work Phone: [employer] 12-16-2021 07:12-0400 Heart rate 104 /min Sulema De La Cruzin DO Work Phone: [employer] 12-16-2021 07:12-0400 Respiratory rate 18 /min Sulema De La Cruzin DO Work Phone: [employer] 12-16-2021 07:12-0400 SaO2% (BldA) [Mass fraction] 98 % Sulema Sheridangrin DO Work Phone: [employer] 12-16-2021 07:12-0400 Systolic blood pressure 127 mm[Hg] Sulema Sheridangrin DO Work Phone: [facility] [employer] 10-28-2021 15:43-0400 Body height 160 cm Nikki Martha-David PA-C Work Phone: [facility] [employer] 10-28-2021 15:43-0400 Body mass index (BMI) [Ratio] 31.89 kg/m2 Nikki Martha-David PA-C Work Phone: [facility] [employer] 10-28-2021 15:43-0400 Body temperature 98.1 [degF] Nikki Martha-David PA-C Work Phone: [facility] [employer] 10-28-2021 15:43-0400 Body weight 81.65 kg Nikki Martha-David PA-C Work Phone: [facility] [employer] 10-28-2021 15:43-0400 Diastolic blood pressure 81 mm[Hg] Nikki Martha-David PA-C Work Phone: [facility] [employer] 10-28-2021 15:43-0400 Heart rate 93 /min Nikki Martha-David PA-C Work Phone: [facility] [employer] 10-28-2021 15:43-0400 Respiratory rate 20 /min Nikki Martha-David PA-C Work Phone: [facility] [employer] 10-28-2021 15:43-0400 SaO2% (BldA) [Mass fraction] 98 % Nikki Martha-David PA-C Work Phone: [facility] [employer] 10-28-2021 15:43-0400 Systolic blood pressure 130 mm[Hg] Nikki Martha-David PA-C Work Phone: [facility] [employer] 08-21-2021 06:21-0400 Body temperature 98.2 [degF] Penny Ritter MD Work Phone: [facility] [employer] 08-21-2021 06:21-0400 Diastolic blood pressure 58 mm[Hg] Penny Ritter MD Work Phone: [employer] 08-21-2021 06:21-0400 Heart rate 81 /min Penny Ritter MD Work Phone: [employer] 08-21-2021 06:21-0400 Respiratory rate 16 /min Penny Ritter MD Work Phone: [employer] 08-21-2021 06:21-0400 SaO2% (BldA) [Mass fraction] 97 % Penny Ritter MD Work Phone: [employer] 08-21-2021 06:21-0400 Systolic blood pressure 116 mm[Hg] Penny Ritter MD Work Phone: [employer] 08-21-2021 01:09-0400 Body height 160 cm Penny Ritter MD Work Phone: [employer] 08-21-2021 01:09-0400 Body mass index (BMI) [Ratio] 32.06 kg/m2 Penny Ritter MD Work Phone: [employer] 08-21-2021 01:09-0400 Body weight 82.1 kg Penny Ritter MD Work Phone: [employer] 11-05-2020 07:21-0400 Body temperature 98.1 [degF] Rebecca Gonzalez [employer] Work Phone: 11-05-2020 07:21-0400 Diastolic blood pressure 71 mm[Hg] Rebecca Gonzalez [employer] Work Phone: 11-05-2020 07:21-0400 Heart rate 94 /min Rebecca Gonzalez [employer] Work Phone: 11-05-2020 07:21-0400 Respiratory rate 18 /min [employer] Work Phone: 11-05-2020 07:21-0400 SaO2% (BldA) [Mass fraction] 99 % Rebecca Gonzalez [facility] [employer] Phone: 11-05-2020 07:21-0400 Systolic blood pressure 116 mm[Hg] Rebecca Gonzalez DO [facility] [employer] Phone: 02-29-2020 12:25-0500 Body Temperature 97.7 [degF] [facility] [place] 02-29-2020 12:25-0500 BP Diastolic 56 mm[Hg] [facility] [place] 02-29-2020 12:25-0500 BP Systolic 123 mm[Hg] [facility] [place] 02-29-2020 12:25-0500 Pulse (Heart Rate) 76 /min [facility] [place] 02-29-2020 12:25-0500 Pulse Oximetry 99 % [facility] [place] 02-29-2020 12:25-0500 Respiratory Rate 16 /min [facility] [place] 02-29-2020 08:15-0500 BMI (Body Mass Index) 34.54 kg/m2 Rj Krishna [facility], [place] 02-29-2020 08:15-0500 Body weight 88.45 kg [facility] [place] 02-29-2020 08:15-0500 Height 160 cm [facility] [place] 11-04-2019 07:30-0400 Body Temperature 98.29 [degF] [facility] [place] 11-04-2019 07:30-0400 BP Diastolic 68 mm[Hg] [facility] [place] 11-04-2019 07:30-0400 BP Systolic 115 mm[Hg] [facility] [place] 11-04-2019 07:30-0400 Pulse (Heart Rate) 88 /min [facility] [place] 11-04-2019 07:30-0400 Respiratory Rate 16 /min Rj Aguilar [facility], [place] 11-03-2019 12:37-0400 Pulse Oximetry 99 % Rj Aguilar [place] , [place] 11-02-2019 07:45-0400 BMI (Body Mass Index) 37.91 kg/m2 Rj Krishna [facility], [place] 11-02-2019 07:45-0400 Body weight 97.07 kg [facility] [place] 11-02-2019 07:45-0400 Height 160 cm Rj [place], [place] 09-30-2018 10:02-0400 BMI (Body Mass Index) 31 kg/m2 [facility], [place] 09-30-2018 10:02-0400 Body Temperature 98.49 [degF] Tip [place], [place] 09-30-2018 10:02-0400 Body weight 79.38 [place] 09-30-2018 10:02-0400 BP Diastolic 71 mm[Hg] [place], [place] 09-30-2018 10:02-0400 BP Systolic 139 mm[Hg] Counts include 234 beds at the [facility] , [place] 09-30-2018 10:02-0400 Height 160 [place] 09-30-2018 10:02-0400 Pulse (Heart Rate) 102 /min [place], [place] 09-30-2018 10:02-0400 Pulse Oximetry 98 % [place], [place] 09-30-2018 10:02-0400 Respiratory Rate 14 /min [place] Encounters Encounter Date Encounter Type Care Provider Facility Start: 03-18-2023 Chart abstracting Fish lorenz MD Work Phone: [facility] Start: 03-11-2023 End: 03-11-2023 ambulatory JOSE F ANN Not Available Start: 02-18-2023 End: 02-18-2023 ambulatory DONNELL FINCH Not Available Start: 01-29-2023 End: 01-30-2023 ambulatory NIKKI MCGOVERN Facility:[facility] Start: 01-29-2023 End: 01-29-2023 Patient encounter procedure Jose F R SETH [facility] Start: 01-29-2023 End: 01-30-2023 ambulatory Jose F R SETH Facility:[facility] Start: 01-29-2023 End: 01-29-2023 Patient encounter procedure Jose F R SETH [facility] Start: 01-11-2023 End: 01-12-2023 ambulatory Jose F R SETH Facility:[facility] Start: 01-11-2023 End: 01-11-2023 Patient encounter procedure Jose F R SETH [facility] Start: 01-10-2023 End: 01-10-2023 ambulatory JOSE F BEDOYAO Not Available Start: 12-28-2022 End: 12-28-2022 ambulatory DONNELL FINCH Not Available Start: 07-31-2022 End: 07-31-2022 Emergency department patient visit [facility] Start: 04-11-2022 End: 04-12-2022 ambulatory LILIANA BROWNLEE [facility] Start: 04-11-2022 End: 04-11-2022 Subsequent hospital visit by physician Nikki Mcgovern PA-C Work Phone: [facility] Comment on above: Tonsillitis with exu date Start: 12-16-2021 End: 12-16-2021 Emergency department patient visit [facility] Start: 12-16-2021 End: 12-16-2021 Emergency department patient visit Sulema Teran DO Work Phone: [facility] ED Comment on above: Bitten by mouse, ini tial encounter (Primary Dx) Start: 11-29-2021 End: 11-29-2021 ambulatory NIKKI THOMASCOUNT [facility]CLUDES [facility] Start: 10-28-2021 End: 10-28-2021 [facility] Start: 10-28-2021 End: 10-28-2021 Emergency department patient visit Nikki Mcgovern PA-C Work Phone: [facility] ED Comment on above: Cellulitis of trunk, unspecified site of trunk (Primary Dx) Start: 08-21-2021 End: 08-21-2021 Emergency department patient visit [facility] Start: 08-21-2021 End: 08-21-2021 Emergency department patient visit Penny Ritter MD Work Phone: [facility] ED Comment on above: Acute gastritis with out hemorrhage, unspecified gastritis type (Primary Dx) Start: 11-05-2020 End: 11-05-2020 Emergency department patient visit Rebecca Gonzalez DO [facility] ED Comment on above: [...] End: 06-21-2019 Subsequent hospital visit by physician Corey Ultrasound 3 [facility] Comment on above: Amenorrhea Start: 04-14-2019 End: 04-16-2019 Subsequent hospital visit by physician Olvera Ultrasound Room 1 [facility] Ultrasound Comment on above: Amenorrhea Start: 09-30-2018 End: 09-30-2018 Emergency department patient visit Tip Antunez Work Phone: [facility] ED Comment on above: [...] abdomen & pelvis w/contrast material Spring Orozco MISCELLANEOUS MACHINE OPERATOR - 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 Other Phone: Start: 10-28-2021 Blood count complete auto&auto difrntl wbc Spring Orozco MISCELLANEOUS MACHINE OPERATOR - 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 Other Phone: Start: 10-28-2021 Urine test visual color cmprsn meths Spring Orozco MISCELLANEOUS MACHINE OPERATOR - 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 Other Phone: Start: 08-21-2021 Assay of lipase [...] Blood count complete auto&auto difrntl wbc Junior Fuentes Work Phone: Start: 02-29-2020 COVID-19 [facility] Work Phone: Start: 11-03-2019 Blood count hemoglobin Rj Aguilar Work Phone: Start: 11-02-2019 End: 11-02-2019 delivery [...] x2 Jose F SETH Colonoscopy Jose F SETH extraction of wisdom teeth Jose F ANN H/O: section Previous c esarean section Mloz 1 Plan of Treatment Date Care Activity Detail Author Start: 12-17-2031 DTaP/Tdap/Td vaccine (3 - Td or Tdap) DTaP/Tdap/Td vaccine (3 - Td or Tdap) [facility] Start: 07-12-2025 Screening for malign ant neoplasm of cervix [facility] Start: 05-27-2024 Screening for malign ant neoplasm of cervix Cervical cancer screen [place], [place] Start: 07-13-2023 Screening for malign ant neoplasm of cervix Pap smear [facility] Start: 03-21-2023 End: 03-21-2023 Patient encounter procedure 03/21/2023 8:00 AM EST Appointment [facility] [place] [address] [facility] [address] [place] [address] [facility] [place] Start: 03-07-2023 Depression Monitoring Depression Mon [facility] Start: 10-12-2022 Influenza vaccination Influenza Vacc [facility] Start: 08-29-2022 Depression Monitoring Depression [facility] Start: 06-08-2022 End: 06-08-2022 Patient encounter procedure 06/08/2022 Office Visit Neurology Blas Mike MD [address] [place] [address] [facility] Start: 02-02-2022 End: 02-02-2022 Patient encounter procedure 02/02/2022 Office Visit Neurology Blas Mike MD [address] [place] [address] [facility] Start: 01-10-2022 End: 01-10-2022 Patient encounter procedure 01/10/2022 Office Visit Family Medicine Nikki Mcgovern PA-C [address] [place] [address] [facility] Start: 12-18-2021 End: 12-18-2021 Patient encounter procedure 12/18/2021 Office Visit Orthopedic Surgery Alena Chandra MD [address] [place] [address] [facility] Start: 10-12-2021 Influenza vaccination Flu vaccine (# 1) [facility] Start: 09-29-2021 End: 09-29-2021 Patient encounter procedure 09/29/2021 Office Visit Neurology Blas Mike MD [address] [place] [address] [facility] Start: 09-11-2021 Influenza vaccination Flu vaccine (# 1) [facility] Start: 01-20-2021 End: 01-20-2021 Patient encounter procedure 01/20/2021 Office Visit Neurology Blas Mike MD [address] [place] [address] [phone] [facility] Start: 12-01-2020 End: 12-01-2020 Patient encounter procedure 12/01/2020 Office Visit Obstetrics and Gynecology Rj Aguilar, [address] [place] [address] [phone] [facility] Start: 10-12-2020 Influenza vaccination Flu vaccine (# 1) [facility] Work Phone: Start: 09-29-2020 End: 09-29-2020 Patient encounter procedure 09/29/2020 Office Visit Family Medicine Nikki Mcgovern PA-C [address] [place] [address] [phone] [facility] Start: 09-16-2020 End: 09-16-2020 Patient encounter procedure 09/16/2020 Office Visit Neurology Mike, Blas R, MD [address] [place] [address] [phone] [facility] Start: 02-16-2020 End: 02-16-2020 Procedure visit 02/16/2020 Procedure visit Obstetrics and Gynecology Rj Aguilar, DO [address] [place] [address] [phone] [facility] Start: 12-01-2019 DTaP/Tdap/Td vaccine (2 - Td or Tdap) DTaP/Tdap/Td vaccine (2 - Td or Tdap) [facility] Start: 12-01-2019 DTaP/Tdap/Td vaccine (2 - Td) DTaP/Tdap/Td vaccine (2 - Td) [place] Start: 10-13-2019 Influenza vaccination [place], [place] Start: 06-25-2019 End: 06-25-2019 Routine 06/25/2019 Routine Obstetrics and Gynecology Rj Aguilar, [address] [place] [address] [phone] [facility] Start: 05-05-2019 End: 05-05-2019 Routine 05/05/2019 Routine Obstetrics and Gynecology Rj Aguilar, [address] [place] [address] [phone] [facility] Start: 10-12-2018 Influenza vaccination Flu vaccine (# 1) [place] Start: 05-07-2016 Cervical cancer screen Cervical canc er screen [place], [place] Start: 10-20-2008 Screening for malign ant neoplasm of cervix Pap Smear [facility] Start: 10-20-2006 DTaP,Tdap and Td Vaccines (1 - Tdap) DTaP,Tdap and Td Vaccines (1 - Tdap) [facility] Start: 10-20-2005 Adult BMI Screening Adult BMI Screen ing [facility] Start: 10-20-2000 Varicella Vaccine (1 of 2 - 13+ 2-dose series) Varicella Vaccine (1 of 2 - 13+ 2-dose series) [place] Start: 1999 COVID-19 Vaccine (1) COVID-19 Vaccin e (1) [facility] Phone: Start: 1999 Depression Monitoring Depression Mon itoring [facility] Start: 1999 Depression Screening Depression Scre ening [facility] Start: 1999 Tobacco Screening Tobacco Screening [facility] Start: 10-20-1993 Pneumococcal 0-64 ye ars Vaccine (1 - PCV) Pneumococcal 0-64 years Vaccine (1 - PCV) [facility] Start: 10-20-1993 Pneumococcal 0-64 ye ars Vaccine (1 of 1 - PPSV23) Pneumococcal 0-64 years Vaccine (1 of 1 - PPSV23) [place] Start: 10-20-1993 Pneumococcal 0-64 ye ars Vaccine (1 of 2 - PPSV23) Pneumococcal 0-64 years Vaccine (1 of 2 - PPSV23) [facility] [employer] Phone: Start: 10-20-1992 COVID-19 Vaccine (1) COVID-19 Vaccin e (1) [facility] Start: 10-20-1988 Varicella vaccine (1 of 2 - 2-dose childhood series) Varicella vaccine (1 of 2 - 2-dose childhood series) [facility] Start: 04-19-1988 COVID-19 Vaccine (#1) COVID-19 Vacci ne (#1) [facility] Start: 1987 Tobacco Counseling Tobacco Counselin g [facility] End: 08-21-2021 CT ABDOMEN PELVIS W IV CONTRAST Additional Contrast? None CT ABDOMEN PELVIS W IV CONTRAST Additional Contrast? None Imaging Routine Once for 1 Occurrences starting 08/21/2021 until 08/21/2021 [facility] [employer] Phone: Comment on above: Once for 1 Occurrenc es starting 08/21/2021 until 08/21/2021 CT ABDOMEN PELVIS W IV CONTRAST Additional Contrast? None CT ABDOMEN PELVIS W IV CONTRAST Additional Contrast? None Imaging STAT 08/21/2021 2:34 AM EDT [employer] Phone: End: 10-28-2021 Culture, Anaerobic and Aerobic Culture, Anaerobic and Aerobic Microbiology Routine One Time for 1 Occurrences starting 10/28/2021 until 10/28/2021 [employer] Phone: Comment on above: One Time for 1 Occur rences starting 10/28/2021 until 10/28/2021 End: 04-11-2022 Culture, Throat [employer] Phone: Comment on above: 1 Occurrences starti ng 04/11/2022 until 04/11/2022 End: 08-12-2020 Holter Monitor 48 Hour Holter Monitor 48 Hour Cardiac Services Routine Heart palpitations 1 Occurrences starting 08/12/2020 until 08/12/2020 [employer] Phone: Comment on above: 1 Occurrences starti ng 08/12/2020 until 08/12/2020 Oxygen therapy [[facility]] [place] Comment on above: Daily until disconti nued starting 11/02/2019 Daily until disconti nued starting 02/29/2020 Phase I & II - meter ed glucose Phase I & II - metered glucose Point of Care Testing Routine As Needed until discontinued starting 02/29/2020 [place] Comment on above: As Needed until disc ontinued starting 02/29/2020 End: 11-02-2019 RHOGAM INJECTION ONLY RHOGAM INJECTION ONLY Blood Bank Routine One Time for 1 Occurrences starting 11/02/2019 until 11/02/2019 [place] Comment on above: One Time for 1 Occur rences starting 11/02/2019 until 11/02/2019 Spirometry panel Incentive jayleen metry Respiratory Care Routine Every 2hr while awake until discontinued starting 11/02/2019 [place] Comment on above: Every 2hr while awak e until discontinued starting 11/02/2019 Surgical Pathology Surgical Path ology Lab Routine Release Upon Ordering for 1 Occurrences starting 02/29/2020 [place] Comment on above: Release Upon Orderin g for 1 Occurrences starting 02/29/2020 End: 04-14-2019 US OB Transvaginal US OB Transvaginal Imaging Routine Amenorrhea 1 Occurrences starting 04/14/2019 until 04/14/2019 [place] Comment on above: 1 Occurrences starti ng 04/14/2019 until 04/14/2019 US OB Transvaginal US OB Transva ginal Imaging Routine Amenorrhea 04/14/2019 2:44 PM EST [place] Immunizations Immunization Date Immunization Notes Care Provider Nata storey 12-16-2021 tetanus toxoid, redu jameson diphtheria toxoid, and acellular pertussis vaccine, adsorbed Sulema Teran DO Work Phone: [facility] 11-02-2019 diphtheria, tetanus toxoids and acellular pertussis vaccine, unspecified formulation Rj Aguilar [place], [place] 01-22-2017 tetanus toxoid, redu jameson diphtheria toxoid, and acellular pertussis vaccine, adsorbed Jose F ANN [facility] Comment on above: Reason for Medicatio n: Other (see comment) 11-30-2009 tetanus toxoid, redu jameson diphtheria toxoid, and acellular pertussis vaccine, adsorbed Tip Antunez [facility] 10-04-2000 measles, mumps and rubella virus vaccine Rebecca Gonzalez [facility] Work Phone: Payers Date Payer Category Payer Medicaid [employer] O [id number] 2023-Present [phone] [address] [place] [address] [id number] 2021 Unknown , [id number] 2017 Unknown [id number] 2016 Unknown [employer] [facility] xxxxxxxxxxx 2016-Present [phone] CLAIMS DEPARTMENT [address] [place] [address] xxxxxxxxxxx [id number] 2016 Unknown [id number] 1987 Unknown [id number] 1987 Unknown [id number] 1987 Unknown [id number] 1987 Unknown [id number] 1987 Unknown [id number] 1987 Unknown [id number] 1987 Unknown [id number] 1987 Unknown [id number] 1987 Unknown [id number] 1987 Unknown [id number] 1987 Unknown [id number] 1987 Unknown [id number] 1987 Unknown [id number] Social History Date Type Detail Facility Start: 09-30-2018 End: 03-18-2023 Tobacco smoking status NHIS Current every day smoker [facility] [employer] History of tobacco use Cigarette Smoker M [place], [place] Start: 09-30-2018 End: 03-18-2023 Cigarettes smoked current (pack per day) - Reported [place], [place] Start: 09-30-2018 End: 03-18-2023 Alcohol intake No [facility] Start: 1987 Sex Assigned At Not on file M [place], [place] Start: 04-07-2019 End: 04-11-2022 Alcohol intake Current non-drinker of alcohol (finding) [place], [place] Start: 02-19-2019 [place], [place] Exposure to SARS-CoV -2 (event) Unable to assess [place] Start: 11-03-2019 End: 08-29-2021 Tobacco use and exposure Never used [place], [place] Start: 08-11-2021 End: 04-11-2022 Exposure to SARS-CoV-2 (event) Not sure [place] Start: 08-04-2020 End: 04-09-2022 History 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 [employer] Work Phone: Start: 08-04-2020 End: 04-09-2022 History 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 [employer] Phone: Start: 1987 Sex Assigned At Female B ON [employer] Start: 10-18-2021 End: 12-16-2021 Exposure to SARS-CoV-2 (event) Yes [facility] [employer] Start: 04-09-2022 History SDOH Transpo rt Non-Med 2 [employer] Work Phone: Start: 10-13-2017 Tobacco smoking status Heavy t obacco smoker (finding) [facility] Medical Equipment Procedure Code Equipment Code Equipment Origin al Text Equipment Identifier Dates fluorescein ophthalmic strip 1 mg [id number] Start: 09-30-2018 End: 09-30-2018 Clinical Notes 08-21-2021 to 01-11-2023 InstructionsAttachments Note Date & Type Note Facility 01-11-2023 Evaluation + Plan note Diagnostic Tests PendingHIV Screen 4th Generation wR[employer] 01/11/23Hepatitis B Surface Antigen 01/11/23RPR with Conf Rfx 01/11/23Rubella Antibody IgG 01/11/23HCV Antibody RFX to Quant PCR 01/11/23Urine Culture 01/11/23 [facility] 08-21-2021 Hospital Discharg e instructions Penny Ritter MD - 08/21/2021 Return to the Emergency Department immediately if you develop worsening symptoms, or you have any other concerns. Please follow up with your family doctor in 1-2 days. The following attachments cannot be sent through Care Everywhere.Gastritis (Moroccan)documented in this encounter [employer] Phone: Evaluation note Diagnosis Heart palpitations Palpitations documented in this encounter [employer] Phone: evaluation note* Diagnosis Dental abscess- Primary Periapical abscess without sinus documented in this encounter [employer] Phone: evalrzimrt note* Diagnosis Acute gastritis without hemorrhage, unspecified gastritis type- Primary documented in this encounter [employer] Phone: evalzkbebu note* Diagnosis Cellulitis of trunk, unspecified site of trunk- Primary documented in this encounter [employer] Phone: evalhafbks note* Diagnosis Bitten by mouse, initial encounter- Primary documented in this encounter [employer] Phone: evalalndxa note* Diagnosis Tonsillitis with exudate Acute tonsillitis documented in this encounter [employer] Phone: Hospital course Narrative No data available for this section [facility] Attachments The following attachments cannot be sent through Care Everywhere. * Tooth: Abscessed (Moroccan) [facility] Phone: Hospital Discharge instructions* Attachments The following attachments cannot be sent through Care Everywhere. * Cellulitis (Moroccan) documented in this encounterNAKUL [employer] Work Phone: Hospital Discharge instructions* Attachments The following attachments cannot be sent through Care Everywhere. * Bites: Animal (Moroccan) documented in this encounterBON [employer] Phone: Hospital Discharge instructions No data available for this section [facility]ructionsNot on filedocumented in this encounter [facility] note No data available for this section [facility] Summary Purpose Family History No Family History Records FoundNo Family History Records FoundNo Family History Records FoundNo Family History Records FoundNo Family History Records Found No data available for this section No data available for this section No data available for this section No Family History Records FoundNo Family History Records Found Advance Directives Documents on File Type Date Recorded 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 Advance Directives and Living Will Power of Furnace Loader Documents on File Type Date Recorded 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 Advance Directives and Living Will Power of Furnace Loader Documents on File Type Date Recorded 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 ACP-Advance Directive ACP-Power of Furnace Loader Latest Code Status on File Code Status Date Activated Date Inactivated Comments Full Code 11/02/2019 12:26 PM Full Code 11/02/2019 7:35 AM 11/02/2019 12:26 PM Latest Code Status on File Code Status Date Activated Date Inactivated Comments Full Code 11/02/2019 12:26 PM 11/04/2019 3:22 PM Documents on File Type Date Recorded 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 ACP-Advance Directive ACP-Power of Furnace Loader Latest Code Status on File Code Status [...] * LEEP (LOOP ELECTROSURGICAL EXCISION PROCEDURE): POST-OP (ROMANIAN) * Coronavirus Disease (COVID-19): General Info (Moroccan) documented in this encounter Assessments Diagnosis Pain [...] Rj Aguilar DO [address] [place] [address] Status Reason Specialty Diagnoses / Procedures Referre d By Contact Referred To Contact [facility] Diagnoses Amenorrhea Procedures US OB Transvaginal Rj Aguilar DO [address] [place] [address] Status Reason Specialty Diagnoses / Procedures Referre d By Contact Referred To Contact Open Radiology Diagnoses Amenorrhea Procedures US OB TRANSVAGINAL Rj Aguilar, [address] [place] [address] Status Reason Specialty Diagnoses / Procedures Referred By Contact Referred To Contact Not Required - [facility]iology Diagnoses Amenorrhea Procedures US OB 14 Plus Weeks Single or First Gestation HC US OB GREATER THAN 14 WEEKS SINGLE FETUS Rj Aguilar, [address] [place] [address] Status Reason Specialty Diagnoses / Procedures Referre d By Contact Referred To Contact Closed Diagnoses Heart palpitations Procedures Holter Monitor 48 Hour Martha-Nikki Hernandez PA-C [address] [place] [address] History of Present Illness * Rj Aguilar DO - 11/03/2019 7:01 AM EDT C Section [...] 50 mL IVPB (duplex), 2 g, Intravenous, [employer] [address] Manager to OR, Rj Diaz DO meperidine (DEMEROL) [...] Once PRN, Junior Fuentes MD 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 DATE CREATED AUTHOR AUTHOR'S ORGANIZ ATION 12/04/2021 [facility] DATE CREATED AUTHOR AUTHOR'S ORGANIZ ATION 07/31/2022 [facility] DATE CREATED AUTHOR AUTHOR'S ORGANIZ ATION 01/31/2023 [facility] DATE CREATED AUTHOR AUTHOR'S ORGANIZ ATION 03/12/2023 [facility] EPIC Reason for Visit (unrecogniz [...] GESTATION Rj Aguilar, [address] [place] [address] Status Reason Specialty Diagnoses / Procedures Referred By Contact Referred To Contact Not Required - Recondo Radiology Diagnoses Amenorrhea Procedures US OB 14 Plus Weeks Single or First Gestation HC US OB GREATER THAN 14 WEEKS SINGLE FETUS Rj Aguilar, [address] [place] [address] Reason Comments Other Scheduled C/S Status Reason Specialty Diagnoses / Procedures Referre d By Contact Referred To Contact Diagnoses Status post repeat low transverse section repeat Procedures GA DELIVERY ONLY SECTION Rj Aguilar DO [address] [place] [address] [facility] Status Reason Specialty Diagnoses / Procedures Re ferred By Contact Referred To Contact Diagnoses HGSIL Pap smear of anus HGSIL Procedures GA COLPOSCOPY,ENTIRE VAGINA LOOP ELECTROSURGICAL EXCISION PROCEDURE COLPOSCOPY, ECC (PAT ON ADMIT) RAPID COVID Rj Aguilar, [address] [place] [address] [facility] Status Reason Specialty Diagnoses / Procedures Referre d By Contact Referred To Contact Closed Diagnoses Heart palpitations Procedures Holter Monitor 48 Hour Nikki Mcgovern PA-C [address] [place] [address] Reason Comments Dental Pain right upper gum [...] 28 capsule 0 10/28/2021 11/04/2021 nystatin (MYCOSTATIN) 163542 UNIT/GM powder Apply topically 2 times daily [...] Other 0226 (Given - Provid er: Jen Deborah) PRN Medication Order 10/26/2021 10/27/2021 10/28/2021 iopamidol [...] Care Teams (unrecognized sec tion and content) Packaging Inspector Relationship Specialty Start Date End Date Nikki Mcgovern PA-C PCP - General 03/29/15 Packaging Inspector Relationship Specialty Start Date End Date Nikki Mcgovern PA-C PCP - General 03/29/15 Packaging Inspector Relationship Specialty Start Date End Date Nikki Mcgovern PA-C PCP - General 03/29/15 Packaging Inspector Relationship Specialty Start Date End Date Nikki Mcgovern PA-C PCP General 03/29/15 FOR RECORDS PERTAINING TO PATIENTS [...] BE BASED ON THE PRIMARY CLINICAL RECORDS. [employer] [facility]. provides no warranty or guarantee of the accuracy or completeness of information in this document.
--- OUTSIDE RECORDS SUMMARY | 2023-04-03 07:40 | XMS_ITS | CCD ---
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 Role Phone Nikki Mcgovern Primary Care [...] Care Unavailabl e NIKKI MCGOVERN Primary Care Unavailoumou e SULEMA TERAN Attending Unavailable NIKKI MCGOVERN Primary Care Physician Yennifer vailable NIKKI MCGOVERN Primary Care Unavailabl e SETH, Jose F R Referring Unavailable SETH, Jose F R Attending Unavailable SETH, Jose F R Admitting Unavailable SETH, Jose F R Admitting Unavailable MARTHA-NIKKI DEE Primary Care Unavailabl e SETH, Jose F R Attending Unavailable SETH, Jose F R Admitting Unavailable MARTHA-NIKKI DEE Primary Care Unavailabl e SETH, Jose F R Attending Unavailable Unavailable Primary Care Provider Unavailabl e SETH, JOSE F R Referring Unavailable DONNELL FINCH Attending Unavailable JEANIE ANNY Attending Unavailable JOSE F ANN Attending Unavailable JOSE F ANN Attending Unavailable Allergies Allergy Classification Reported Allergen(s) Allergy Type Date of Onset Reaction(s) Facility (4 sources) Acetaminophen / oxyCODONE; Translations: [OXYCODONE-ACETAM INOPHEN] Drug Allergy 2 Nausea And Vomiting, Headache [facility] Phone: (4 sources) traMADol; Translations: [TRAMADOL] Drug Allergy 2 [facility] Phone: (1 source) No Known Medication Allergies; Translations: [No Known Medication Allergies] Propensity to adverse reactions (disorder) [facility] Repository Medications Current Medications Medication Drug [...] Pain - Moderate, 30 tab(s), Refill(s) 0, [facility] Start Date: 01/22/17 Status: Ordered albuterol HFA [...] BID, # 60 cap(s), Refills(s) 0, Pharmacy: [facility] Start Date: 01/22/17 Status: Ordered Ethinyl Estradiol [...] Refill(s) 5, Start 3 weeks after delivery, [facility] Start Date: 01/22/17 Status: [...] Mild, # 40 tab(s), Refills(s) 0, Pharmacy: [facility] Start Date: 01/22/17 Status: [...] sources) Polyene Antifungal Start: 10-28-2021 nystatin (MYCOSTATIN) 257012 UNIT/GM powder Apply topically 2 times daily [...] Give after delivery of placenta. Prenat w/o B-FtVag-JUB-FA-DHA (PRENAISSANCE PLUS) 28-1-250 MG CAPS (4 sources) Start: 06-03-2019 take 1 tablet by mouth once daily Prenat w/o K-GvJjz-JOO-FA-DHA (PRENAISSANCE PLUS) 28-1-250 MG CAPS Take 1 tablet by mouth daily 30 capsule 06/03/2019 Suspended Start: 06-03-2019 take 1 tablet by mario th once daily Prenat w/o N-HsSpo-DJN-FA-DHA (PRENAISSANCE PLUS) 28-1-250 MG CAPS Take 1 [...] tablet 3 04/09/2017 09/30/2018 Discontinued (LIST CLEANUP) [id number] (PRENATE AM PO) (1 source) End: 09-30-2018 [id number] (PRENATE AM PO) Take by mouth 0 09/30/2018 Discontinued (LIST CLEANUP) Multivitamins with Folic Acid 1 mg oral tablet (3 sources) Start: 07-26-2016 Multivitamins with Folic Acid 1 mg oral tablet 1 tab(s), Oral, Daily, 100 tab(s), Refill(s) 0, [facility] Start Date: 07/26/16 Status: [...] Normal Diaphragm Normal ACI Normal Normal [facility] CHEMISTRYOrdered By: SYSTEM SYSTEM on 01-29-2023 Glucose [Mass/Vol] 157 mg/dL High 55 - 140 mg/dL Remisol Chem Consent for Treatmenton 01-11 Consent for Treatment [id number] .00TIFF Normal [facility] Consent for Treatment [id number] .00TIFF Normal [facility] Gest Scr Glu 1 Hron 01-30-20 23 Glucose [Mass/Vol] 157 mg/dL High 55-140 [facility] Comment on above: Performed By: #### 2 [id number], [id number], 662694366, [id number], 267682440, 998393985, 9462839, 1773325, 3153411 #### [facility] [address] [place] [address] Glucose 1h post 50g loadon 04-01-2022 Glucose, 1 hr PP 50GM dose 157 [facility] Physician Orderon 01-29-2023 Physician Order [id number]# 1.00TIFF Normal [facility] Physician Orderon 01-28-2023 Physician Order [id number]#1 .00TIFF Normal [facility] C Urineon 01-13-2023 Bacteria identified Cx [...] R1: This test was performed at: [facility], [address] [place] [address], [address] , , [facility] Comment on above: Performed By: #### 2 [id number], 30388669, 593035115, 7410029930, 748387166, 854332370, 4495259, 1162364, 3619797 #### [facility] [address] [place] [address] .Interpretation:on HCV Ab IA Ql Comment Invalid Interpretation Code [facility] Comment on above: Result Comment: Not infected with HCV unless early or acute infection is suspected (which may be delayed in an immunocompromised individual), or other evidence exists to indicate HCV infection. Performed at: [facility] [id number] [place], [place] [id number] PhD Mariama Zaman Performed By: #### 2 [id number], 86092201, 207872351, 5599294387, 860453123, 073177800, 4301774, 4445392, 2407368 #### [facility] [address] [place] [address] HCV Antibody RFX to Quant PC Johnny 01-12-2023 HCV IgG IA Ql Non-Reactive Invalid Interpretation Code Non Reactive [facility] Comment on above: Result Comment: Perf ormed at: [address] [id number] PhD Mariama Zaman Performed By: #### 2 [id number], 52964623, 893066461, 2366763333, 154400964, 333449412, 5945947, 6203183, 3556586 #### [facility] [address] [place] [address] HIV Screen 4th Generation wR fxon 01-12-2023 HIV 1+2 Ab+HIV1 p24 Ag IA Ql Non-Reactive Invalid Interpretation Code Non Reactive [facility] Comment on above: Result Comment: HIV Negative HIV-1/HIV-2 antibodies and HIV-1 p24 antigen were NOT detected. There is no laboratory evidence of HIV infection. Performed at: [address] [id number] PhD Mariama Zaman Performed By: #### 2 [id number], 56453276, 339205886, 9343284277, 553611958, 666587835, 6254673, 2426080, 0979163 #### [facility] [address] [place] [address] Hep Bs Agon 01-12-2023 HBV surface Ag IA Ql Negative Invalid Interpretation Code Negative [facility] Comment on above: Result Comment: Perf ormed at: [address] [id number] PhD Mariama Zaman Performed By: #### 2 [id number], 72339215, 231520021, 2389032195, 731632448, 714099238, 1640153, 2146595, 1755917 #### [facility] [address] [place] [address] RPR with Conf Rfxon 01-13-20 23 Reagin Ab RPR Ql (S) Non-Reactive Invalid Interpretation Code Non Reactive [facility] Comment on above: Result Comment: Perf ormed at: [address] [id number] PhD Mariama Zaman Performed By: #### 2 [id number], 13401821, 376700466, 0360037017, 092355202, 918559858, 6143195, 1533932, 0081334 #### [facility] [address] [place] [address] Rubella IgGon 01-12-2023 Rubella virus IgG Qn (S) 5.68 [IU]/mL Invalid Interpretation Code Immune >0.99 [facility] Comment on above: Result Comment: Non- immune <0.90 Equivocal 0.90 - 0.99 Immune >0.99 Performed at: [address] [id number] PhD Mariama Zaman Performed By: #### 2 [id number], 39133786, 435421763, 5941629365, 154475185, 464537152, 1808295, 6779070, 2899824 #### [facility] [address] [place] [address] ABO/Rhon 01-11-2023 ABO/Rh Positive Invalid Interpretation Code [facility] Comment on above: Performed By: #### 2 [id number], 71840278, 479610935, 8185461823, 306638489, 465892472, 5681726, 0352418, 2871939 #### [facility] [address] [place] [address] ABSCon 01-11-2023 ABSC Gel Interp Negative Normal [facility] Comment on above: Performed By: #### 2 [id number], 48114619, 298150837, 5242705499, 593103197, 056634184, 7823963, 6866460, 4724300 #### [facility] [address] [place] [address] BLOOD BANKOrdered By: Dylan Lemons on 01-11-2023 ABO/Rh Interp Positive Invalid Interpretation Code FT BB Subsection ABSC Gel Interp Negative (01/11/23 10:00 AM) Normal [facility] BB Subsection CBC w/IndicesOrdered By: López Jorgensen on 01-11-2023 Erythrocyte distribution width (RBC) [Ratio] 13.4 % Normal 10.9-14.2 [facility] Comment on above: Performed By: #### 2 [id number], 04860355, 590922864, 3924796887, 629611707, 416093445, 4901113, 1952178, 6383592 #### [facility] [address] [place] [address] Hematocrit (Bld) [Volume fraction] 34.4 % [facility] Comment on above: Performed By: #### 2 [id number], 93163589, 830766961, 2241656010, 636217016, 882723594, 3901464, 8650397, 0983967 #### [facility] [address] [place] [address] Hemoglobin (Bld) [Mass/Vol] 11.7 g/dL [facility] Comment on above: Performed By: #### 2 498151093, 16251052, 048975658, 4307982529, 076325064, 988844162, 3715641, 4700998, 2239430 #### [facility] [address] [place] [address] MCH (RBC) [Entitic mass] 31.7 pg Normal 27.0-34.0 [facility] Comment on above: Performed By: #### 2 609435219, 30749175, 240802125, 3690782923, 500340187, 423938154, 9980647, 0740443, 8820018 #### [facility] [address] [place] [address] MCHC (RBC) [Mass/Vol] 33.9 g/dL Normal 31.4-36.0 [facility] Comment on above: Performed By: #### 2 129295763, 38761505, 167039546, 5053717209, 187166230, 580140546, 0546500, 4758717, 3081493 #### [facility] [address] [place] [address] MCV (RBC) [Entitic vol] 93.3 fL Normal 80.0-100.0 [facility] Comment on above: Performed By: #### 2 145044339, 61631275, 531830324, 5548781243, 471876951, 312048955, 7498504, 2103110, 9358067 #### [facility] [address] [place] [address] Platelet mean volume (Bld) [Entitic vol] 8.0 fL Normal 6.4-10.8 [facility] Comment on above: Performed By: #### 2 886063349, 22480999, 334431401, 9443733776, 708162444, 335006336, 5623034, 5184315, 6970871 #### [facility] [address] [place] [address] Platelets (Bld) [#/Vol] 171.0 E9/L Normal 150.0-500.0 [facility] Comment on above: Performed By: #### 2 [id number], 49027313, 928653805, 4161649855, 840445179, 021570715, 4634540, 3999649, 5854034 #### [facility] [address] [place] [address] RBC (Bld) [#/Vol] 3.7 E12/L Low 4.3-5.9 [facility] Comment on above: Performed By: #### 2 922741170, 79238471, 090403944, 0756989023, 916249640, 219111920, 3689535, 3785153, 4587912 #### [facility] [address] [place] [address] WBC corrected for nucl RBC Auto (Bld) [#/Vol] 11.7 E9/L High 4.0-11.0 [facility] Comment on above: Performed By: #### 2 290387061, 19863518, 792091425, 7109791524, 168211160, 149075462, 9230339, 7378212, 6582200 #### [facility] [address] [place] [address] CBC without diffon Platelets (Bld) [#/Vol] 171 10*3/uL [facility] Consent for Treatmenton Consent for Treatment [id number] .00TIFF Normal [facility] HIV 1&2 AB/AG Screen (P24 AG )on 01-11-2023 HIV 1&2 AB/AG Non-Reactive [facility] Hepatitis B surface antigeno n 01-11-2023 Hepatitis B Surface Antigen Negative [facility] Hepatitis C(HCV) Ab w/ Refle x to PCRon 01-11-2023 HCV Ab Ql (S) Non-Reactive [facility] [id number] By: Liliana Dumont on 01-11-2023 HbA1c (Bld) [Mass fraction] 4.9 % Normal <=5.9 [facility] Comment on above: Performed By: #### 2 [id number], 26885850, 091908930, 0265514718, 050101774, 641094519, 8124682, 0432032, 8663990 #### [facility] [address] [place] [address] No Panel Informationon 01-[address] [facility] Physician Orderon 01-11-2023 Physician Order [id number] .00TIFF Normal [facility] Rubella IGG immune statuson 01-11-2023 Rubella immune IgG 5.68 [facility] Syphilis Total(Unknown Syphi lis Status)on 01-11-2023 Syphilis Non-Reactive [facility] TSHon 01-11-2023 Thyroid Stimulating (3Rd Generation) Hormone/ Tsh 1.[address] [facility] TSHOrdered By: SYSTEM SYSTEM on 01-11-2023 TSH Qn 1.30 m[IU]/L Normal 0.34-5.60 [facility] Remisol Comment on above: Performed By: #### 2 [id number], 55630412, 273778099, 4488168799, 348685905, 123868689, 6930758, 8252129, 9266942 #### [facility] [address] [place] [id number] Type and screenon 01-11-2023 Abo/Rh(D) Positive [facility] System Basic Metabolic Panelon 07-13 Calcium [Mass/Vol] 9.1 mg/dL Normal 8.5-9.9 [facility] Comment on above: Performed By: #### C BCWD #### [facility] [address] [place] [address] Chloride [Moles/Vol] 105 mmol/L Normal 95-107 [facility] Comment on above: Performed By: #### C BCWD #### [facility] [address] [place] [address] CO2 [Moles/Vol] 22 mmol/L Normal 20-31 [facility] Comment on above: Performed By: #### C BCWD #### [facility] [address] [place] [address] Creatinine [Mass/Vol] 0.59 mg/dL Normal 0.50-0.90 [facility] Comment on above: Performed By: #### C BCWD #### [facility] [address] [place] [address] GFR >60.0 Normal >60 [facility] Comment on above: Result Comment: Pedi atric [...] secretion. Performed By: #### C BCWD #### [facility] [address] [place] [address] Glucose [Mass/Vol] 110 mg/dL Critically high 70-99 [facility] Comment on above: Performed By: #### C BCWD #### [facility] [address] [place] [address] Potassium [Moles/Vol] 4.0 mmol/L Normal 3.4-4.9 [facility] Comment on above: Performed By: #### C BCWD #### [facility] [address] [place] [address] Sodium [Moles/Vol] 139 mmol/L Normal 135-144 [facility] Comment on above: Performed By: #### C BCWD #### [facility] [address] [place] [address] Urea nitrogen [Mass/Vol] 12 mg/dL Normal 6-20 [facility] Comment on above: Performed By: #### C BCWD #### [facility] [address] [place] [address] Anion gap [Moles/Vol] 12 mmol/L Normal 9-15 [facility] Comment on above: Performed By: #### C BCWD #### [facility] [address] [place] [address] CBC With Platelet and Differ entialon 07-31-2022 Abs Imm Granulocytes 0.0 K/uL Normal [facility] Comment on above: Performed By: #### C BCWD #### [facility] [address] [place] [address] Basophils (Bld) [#/Vol] 0.0 10*3/uL Normal 0.0-0.1 [facility] Comment on above: Performed By: #### C BCWD #### [facility] [address] [place] [address] Basophils/100 WBC (Bld) 0.4 % Normal 0.1-1.2 [facility] Comment on above: Performed By: #### C BCWD #### [facility] [address] [place] [address] Eosinophils (Bld) [#/Vol] 0.2 10*3/uL Normal 0.0-0.4 [facility] Comment on above: Performed By: #### C BCWD #### [facility] [address] [place] [address] Eosinophils/100 WBC (Bld) 2.6 % Normal 0.7-5.8 [facility] Comment on above: Performed By: #### C BCWD #### [facility] [address] [place] [address] Erythrocyte distribution width (RBC) [Ratio] 12.6 % Normal 11.7-14.4 [facility] Comment on above: Performed By: #### C BCWD #### [facility] [address] [place] [address] Hematocrit (Bld) [Volume fraction] 39.6 % Normal 37.0-47.0 [facility] Comment on above: Performed By: #### C BCWD #### [facility] [address] [place] [address] Hemoglobin (Bld) [Mass/Vol] 13.5 g/dL Normal 11.2-15.7 [facility] Comment on above: Performed By: #### C BCWD #### [facility] [address] [place] [address] Imm Granulocytes 0.3 % Normal [facility] Comment on above: Performed By: #### C BCWD #### [facility] [address] [place] [address] Lymphocytes (Bld) [#/Vol] 1.8 10*3/uL Normal 1.2-3.7 [facility] Comment on above: Performed By: #### C BCWD #### [facility] [address] [place] [address] Lymphocytes/100 WBC (Bld) 25.0 % Normal [facility] Comment on above: Performed By: #### C BCWD #### [facility] [address] [place] [address] MCH (RBC) [Entitic mass] 31.9 pg Normal 25.6-32.2 [facility] Comment on above: Performed By: #### C BCWD #### [facility] [address] [place] [address] MCHC 34.1 % Normal 32.2-35.5 [facility] Comment on above: Performed By: #### C BCWD #### [facility] [address] [place] [address] MCV (RBC) [Entitic vol] 93.6 fL Normal 79.4-94.8 [facility] Comment on above: Performed By: #### C BCWD #### [facility] [address] [place] [address] Monocytes (Bld) [#/Vol] 0.4 10*3/uL Normal 0.2-0.9 [facility] Comment on above: Performed By: #### C BCWD #### [facility] [address] [place] [address] Monocytes/100 WBC (Bld) 5.7 % Normal 4.7-12.5 [facility] Comment on above: Performed By: #### C BCWD #### [facility] [address] [place] [address] Neutrophils (Bld) [#/Vol] 4.9 10*3/uL Normal 1.6-6.1 [facility] Comment on above: Performed By: #### C BCWD #### [facility] [address] [place] [address] Neutrophils/100 WBC (Bld) 66.0 % Normal 34.0-71.1 [facility] Comment on above: Performed By: #### C BCWD #### [facility] [address] [place] [address] Platelets (Bld) [#/Vol] 193 10*3/uL Normal 182-369 [facility] Comment on above: Performed By: #### C BCWD #### [facility] [address] [place] [address] RBC (Bld) [#/Vol] 4.23 10*6/uL Normal 3.93-5.22 [facility] Comment on above: Performed By: #### C BCWD #### [facility] [address] [place] [address] WBC (Bld) [#/Vol] 7.4 10*3/uL Normal 4.0-10.0 [facility] Comment on above: Performed By: #### C BCWD #### [facility] [address] [place] [address] UR HCG Qualitativeon 023 Beta HCG ( test) Ql (U) Negative Normal Detects HC [facility] Comment on above: Performed By: #### C BCWD #### [facility] [address] [place] [address] Urinalysis, reflex to cultur minoo 07-31-2022 Urine Reflexed to Culture Not Indicated Normal [facility] Comment on above: Performed By: #### U AR #### [facility] [address] [place] [address] Bilirubin Ql (U) Negative Normal Negative [facility] Comment on above: Performed By: #### U AR #### [facility] [address] [place] [address] Clarity (U) Clear Normal Clear [facility] Comment on above: Performed By: #### U AR #### [facility] [address] [place] [address] Color (U) Yellow Normal Straw/Pitt [facility] Comment on above: Performed By: #### U AR #### [facility] [address] [place] [address] Glucose Ql (U) Negative Normal Negative [facility] Comment on above: Performed By: #### U AR #### [facility] [address] [place] [address] Hemoglobin Ql (U) Large Normal Negative [facility] Comment on above: Performed By: #### U AR #### [facility] [address] [place] [address] Ketones Ql (U) Negative Normal Negative [facility] Comment on above: Performed By: #### U AR #### [facility] [address] [place] [address] Leukocyte esterase Test strip Ql (U) Negative Normal Negative [facility] Comment on above: Performed By: #### U AR #### [facility] [address] [place] [address] Nitrite Ql (U) Negative Normal Negative [facility] Comment on above: Performed By: #### U AR #### [facility] [address] [place] [address] pH (U) 5.5 [pH] Normal 5.0-9.0 [facility] Comment on above: Performed By: #### U AR #### [facility] [address] [place] [address] Protein Ql (U) Negative Normal Negative [facility] Comment on above: Performed By: #### U AR #### [facility] [address] [place] [address] Specific gravity (U) [Rel density] 1.015 Normal 1.005-1.03 [facility] Comment on above: Performed By: #### U AR #### [facility] [address] [place] [address] Urobilinogen Qn (U) 0.2 {Ginger'U}/dL Normal < 2.0 [facility] Comment on above: Performed By: #### U AR #### [facility] [address] [place] [address] Urine Microscopicon 08-01-19 23 Epithelial cells LM Ql (Urine sed) 3-5 Normal [facility] Comment on above: Performed By: #### U KAREEM #### [facility] [address] [place] [address] Urine Bacteria FEW Abnormal Negative [facility] Comment on above: Performed By: #### U KAREEM #### [facility] [address] [place] [address] Urine RBC 5-10 Abnormal 0-2 [facility] Comment on above: Performed By: #### U KAREEM #### [facility] [address] [place] [address] Urine WBC 0-2 Normal 0-5 [facility] Comment on above: Performed By: #### U KAREEM #### [facility] [address] [place] [address] Culture, Throaton 04-11-2022 Culture, Throat ORDER#: [id number] ORDERED BY: LILIANA CARROLL SOURCE: Throat Throat COLLECTED: 04/11/22 17:53 ANTIBIOTICS AT [facility].: RECEIVED : 04/11/22 21:00 Culture, Throat FINAL 04/14/22 10:27 Cult,Throat: Oral to, negative for Group A Strep and other beta Cult,Throat: hemolytic streptococci Performed at [address] [address] ([phone] Normal [facility] Comment on above: Performed By: #### C BCWD #### [facility] [address] [place] [address] XR SHOULDER LEFT (MIN 2 VIEW S)on [...] Vitor Riojas MD 11/29/21 Final result Normal [facility] Bacterial susceptibility hager el by Christin 10-28-2021 Bacterial susceptibility panel KAREEM ([facility]) ORDER#: [id number] ORDERED BY: SPRING OROZCO SOURCE: Incision COLLECTED: 10/28/21 16:45 ANTIBIOTICS AT [place].: RECEIVED : 10/28/21 22:09 Culture, Wound Aerobic, Anaerobic FINAL 11/03/21 07:50 Direct Exam: NO NEUTROPHILS SEEN Direct Exam: NO BACTERIA SEEN Cult,Aerobe/Anaerobe: Mixed skin to Cult,Aerobe/Anaerobe: No anaerobic organisms isolated at 5 days. Performed at [address] [address] Acinetobacter species LIGHT GROWTH Acinetobacter baumannii LIGHT GROWTH Acineto sp. A. baumannii ANTIBIOTICS KAREEM Interp KAREEM Interp Ampicillin/Sulbactam <=2 S >=32 R Ceftriaxone 16 I 16 I Ciprofloxacin <=0.25 S <=0.25 S Gentamicin <=1 S <=1 S Tobramycin <=1 S <=1 S S=SUSCEPTIBLE I=INTERMEDIATE R=RESISTANT Normal [facility] Comment on above: Performed By: #### 5 [id number] #### [facility] [address] [place] [id number] Bacterial susceptibility panel KAREEM ([facility]) ORDER#: [id number] ORDERED BY: SPRING OROZCO SOURCE: Incision COLLECTED: 10/28/21 16:45 ANTIBIOTICS AT [place].: RECEIVED : 10/28/21 22:09 Culture, Wound Aerobic, Anaerobic PRELIM 11/03/21 07:15 Direct Exam: NO NEUTROPHILS SEEN Direct Exam: NO BACTERIA SEEN Cult,Aerobe/Anaerobe: Mixed skin to Cult,Aerobe/Anaerobe: No anaerobic organisms isolated at 5 days. Performed at [facility] [address] [facility], [place] [id number] ([phone] Acinetobacter species LIGHT GROWTH Acineto sp. ANTIBIOTICS KAREEM Interp Ampicillin/Sulbactam <=2 S Ceftriaxone 16 I Ciprofloxacin <=0.25 S Gentamicin <=1 S Tobramycin <=1 S S=SUSCEPTIBLE I=INTERMEDIATE R=RESISTANT Normal [facility] Comment on above: Performed By: #### C BCWD #### [facility] [address] [place] [address] CBC With Platelet and Differ entialon 10-28-2021 Abs Imm Granulocytes 0.0 K/uL Normal [facility] Comment on above: Performed By: #### C BCWD #### [facility] [address] [place] [address] Basophils (Bld) [#/Vol] 0.0 10*3/uL Normal 0.0-0.1 [facility] Comment on above: Performed By: #### C BCWD #### [facility] [address] [place] [address] Basophils/100 WBC (Bld) 0.1 % Normal 0.1-1.2 [facility] Comment on above: Performed By: #### C BCWD #### [facility] [address] [place] [address] Eosinophils (Bld) [#/Vol] 0.3 10*3/uL Normal 0.0-0.4 [facility] Comment on above: Performed By: #### C BCWD #### [facility] [address] [place] [address] Eosinophils/100 WBC (Bld) 3.1 % Normal 0.7-5.8 [facility] Comment on above: Performed By: #### C BCWD #### [facility] [address] [place] [address] Erythrocyte distribution width (RBC) [Ratio] 12.8 % Normal 11.7-14.4 [facility] Comment on above: Performed By: #### C BCWD #### [facility] [address] [place] [address] Hematocrit (Bld) [Volume fraction] 40.9 % Normal 37.0-47.0 [facility] Comment on above: Performed By: #### C BCWD #### [facility] [address] [place] [address] Hemoglobin (Bld) [Mass/Vol] 13.6 g/dL Normal 11.2-15.7 [facility] Comment on above: Performed By: #### C BCWD #### [facility] [address] [place] [address] Imm Granulocytes 0.2 % Normal [facility] Comment on above: Performed By: #### C BCWD #### [facility] [address] [place] [address] Lymphocytes (Bld) [#/Vol] 1.8 10*3/uL Normal 1.2-3.7 [facility] Comment on above: Performed By: #### C BCWD #### [facility] [address] [place] [address] Lymphocytes/100 WBC (Bld) 16.5 % Normal [facility] Comment on above: Performed By: #### C BCWD #### [facility] [address] [place] [address] MCH (RBC) [Entitic mass] 31.1 pg Normal 25.6-32.2 [facility] Comment on above: Performed By: #### C BCWD #### [facility] [address] [place] [address] MCHC 33.3 % Normal 32.2-35.5 [facility] Comment on above: Performed By: #### C BCWD #### [facility] [address] [place] [address] MCV (RBC) [Entitic vol] 93.4 fL Normal 79.4-94.8 [facility] Comment on above: Performed By: #### C BCWD #### [facility] [address] [place] [address] Monocytes (Bld) [#/Vol] 0.6 10*3/uL Normal 0.2-0.9 [facility] Comment on above: Performed By: #### C BCWD #### [facility] [address] [place] [address] Monocytes/100 WBC (Bld) 5.2 % Normal 4.7-12.5 [facility] Comment on above: Performed By: #### C BCWD #### [facility] [address] [place] [address] Neutrophils (Bld) [#/Vol] 7.9 10*3/uL Critically high 1.6-6.1 [facility] Comment on above: Performed By: #### C BCWD #### [facility] [address] [place] [address] Neutrophils/100 WBC (Bld) 74.9 % Critically high 34.0-71.1 [facility] Comment on above: Performed By: #### C BCWD #### [facility] [address] [place] [address] Platelets (Bld) [#/Vol] 192 10*3/uL Normal 182-369 [facility] Comment on above: Performed By: #### C BCWD #### [facility] [address] [place] [address] RBC (Bld) [#/Vol] 4.38 10*6/uL Normal 3.93-5.22 [facility] Comment on above: Performed By: #### C BCWD #### [facility] [address] [place] [address] WBC (Bld) [#/Vol] 10.6 10*3/uL Critically high 4.0-10.0 [facility] Comment on above: Performed By: #### C BCWD #### [facility] [address] [place] [address] CBC with Auto Differentialon 10-28-2021 Basophils (Bld) [#/Vol] 0.0 10*3/uL 0 - 0.1 K/uL [facility] Basophils/100 WBC (Bld) 0.1 % 0.1 - 1.2 % [facility] Eosinophils (Bld) [#/Vol] 0.3 10*3/uL 0 - 0.4 K/uL [facility] Eosinophils/100 WBC (Bld) 3.1 % 0.7 - 5.8 % [facility] Hematocrit (Bld) [Volume fraction] 40.9 % 37 - 47 % [facility] Hemoglobin (Bld) [Mass/Vol] 13.6 g/dL 11.2 - 15.7 g/dL [facility] Immature granulocytes (Bld) [#/Vol] 0.0 10*3/uL [facility] Immature granulocytes/100 WBC (Bld) 0.2 % [facility] Interpretation and review of laboratory results Abnormal [facility] Lymphocytes (Bld) [#/Vol] 1.8 10*3/uL 1.2 - 3.7 K/uL [facility] Lymphocytes/100 WBC (Bld) 16.5 % [facility] MCH (RBC) [Entitic mass] 31.1 pg 25.6 - 32.2 pg [facility] MCHC (RBC) [Mass/Vol] 33.3 % 32.2 - 35.5 % [facility] MCV (RBC) [Entitic vol] 93.4 fL 79.4 - 94.[address] [facility] Monocytes (Bld) [#/Vol] 0.6 10*3/uL 0.2 - 0.9 K/uL [facility] Monocytes/100 WBC (Bld) 5.2 % 4.7 - 12.5 % [facility] Neutrophils Absolute 7.9 K/uL High 1.6 - 6 .1 K/uL [facility] Neutrophils/100 WBC (Bld) 74.9 % High 34 - 71.1 % [facility] Platelet distribution width (Bld) [Ratio] 12.8 % 11.7 - 14.4 % [facility] Platelets (Bld) [#/Vol] 192 10*3/uL 182 - 369 K/uL [facility] RBC (Bld) [#/Vol] 4.38 10*6/uL [facility] WBC (Bld) [#/Vol] 10.6 10*3/uL High 4 - 10 K/uL [facility] CT ABDOMEN PELVIS W IV [...] Ocampo MD 10/28/21 Final result Normal [facility] CT ABDOMEN PELVIS W IV CONTR AST Additional Contrast? Noneon 10-28-2021 No acute abdominopelvic abnormality. [facility] EXAMINATION: CT OF THE ABDOMEN AND [...] stranding or fluid at the surgical site. [facility] Melodie Ocampo MD - 10/28/2021 EXAMINATION: [...] surgical site. IMPRESSION: No acute abdominopelvic abnormality. [email or web address] Phone: Radiology Study observation (narrative) [facility] [employer] Phone: CT ABDOMEN PELVIS W IV CONTR AST Additional Contrast? NoneOrdered By: Melodie Ocampo on 10-28-[address] [facility] [employer] Phone: Comprehensive Metabolic Pane l reflex Mgon 10-28-2021 Albumin [Mass/Vol] 4.4 g/dL Normal 3.5-4.6 [facility] Comment on above: Performed By: #### C MPX #### [facility] [address] [place] [address] ALP [Catalytic activity/Vol] 118 U/L Normal 40-130 [facility] Comment on above: Performed By: #### C MPX #### [facility] [address] [place] [address] ALT [Catalytic activity/Vol] 6 U/L Normal 0-33 [facility] Comment on above: Performed By: #### C MPX #### [facility] [address] [place] [address] Anion gap [Moles/Vol] 11 mmol/L Normal 9-15 [facility] Comment on above: Performed By: #### C MPX #### [facility] [address] [place] [address] AST [Catalytic activity/Vol] 8 U/L Normal 0-35 [facility] Comment on above: Performed By: #### C MPX #### [facility] [address] [place] [address] Bilirubin [Mass/Vol] 0.4 mg/dL Normal 0.2-0.7 [facility] Comment on above: Performed By: #### C MPX #### [facility] [address] [place] [address] Calcium [Mass/Vol] 9.7 mg/dL Normal 8.5-9.9 [facility] Comment on above: Performed By: #### C MPX #### [facility] [address] [place] [address] Chloride [Moles/Vol] 104 mmol/L Normal 95-107 [facility] Comment on above: Performed By: #### C MPX #### [facility] [address] [place] [address] CO2 [Moles/Vol] 23 mmol/L Normal 20-31 [facility] Comment on above: Performed By: #### C MPX #### [facility] [address] [place] [address] Creatinine [Mass/Vol] 0.60 mg/dL Normal 0.50-0.90 [facility] Comment on above: Performed By: #### C MPX #### [facility] [address] [place] [address] GFR >60.0 Normal >60 [facility] Comment on above: Result Comment: >60 mL/min/1.73m2 EGFR, calc. for ages 18 and older using the MDRD formula (not corrected for weight), is valid for stable renal function. Performed By: #### C MPX #### [facility] [address] [place] [address] GFR/1.73 sq M.predicted among blacks MDRD (S/P/Bld) [Vol rate/Area] mL/min/{1.73_m2} Normal >60 [facility] Comment on above: Result Comment: >60 mL/min/1.73m2 EGFR, calc. for ages 18 and older using the MDRD formula (not corrected for weight), is valid for stable renal function. Performed By: #### C MPX #### [facility] [address] [place] [address] Globulin (S) [Mass/Vol] 3.1 g/dL Normal 2.3-3.5 [facility] Comment on above: Performed By: #### C MPX #### [facility] [address] [place] [address] Glucose [Mass/Vol] 95 mg/dL Normal 70-99 [facility] Comment on above: Performed By: #### C MPX #### [facility] [address] [place] [address] Magnesium [Moles/Vol] 4.2 mmol/L Normal 3.4-4.9 [facility] Comment on above: Performed By: #### C MPX #### [facility] [address] [place] [address] Protein [Mass/Vol] 7.5 g/dL Normal 6.3-8.0 [facility] Comment on above: Performed By: #### C MPX #### [facility] [address] [place] [address] Sodium [Moles/Vol] 138 mmol/L Normal 135-144 [facility] Comment on above: Performed By: #### C MPX #### [facility] [address] [place] [address] Urea nitrogen [Mass/Vol] 14 mg/dL Normal 6-20 [facility] Comment on above: Performed By: #### C MPX #### [facility] [address] [place] [address] Comprehensive Metabolic Pane l w/ Reflex to MGon 10-28-2021 Albumin [Mass/Vol] 4.4 g/dL 3.5 - 4.6 g/dL [facility] ALP (Bld) [Catalytic activity/Vol] 118 U/L 40 - 130 U/L [facility] ALT [Catalytic activity/Vol] 6 U/L 0 - 33 U/L [facility] Anion gap [Moles/Vol] 11 mmol/L [facility] AST [Catalytic activity/Vol] 8 U/L 0 - 35 U/L [facility] Bilirubin [Mass/Vol] 0.4 mg/dL 0.2 - 0 .7 mg/dL [facility] Calcium [Mass/Vol] 9.7 mg/dL 8.5 - 9.9 mg/dL [facility] Chloride [Moles/Vol] 104 mmol/L [facility] CO2 [Moles/Vol] 23 mmol/L [facility] Creatinine [Mass/Vol] 0.6 mg/dL 0.5 - 0.9 mg/dL [facility] Free PSA/Total PSA [Mass fraction] 7.5 g/dL 6.3 - 8 g/dL [facility] GFR >60.0 60 - PINF [facility] Comment on above: >60 mL/min/1.73m2 EG FR, calc. for ages 18 and older using the MDRD formula (not corrected for weight), is valid for stable renal function. GFR Non- >60.0 60 - PINF [facility] Comment on above: >60 mL/min/1.73m2 EG FR, calc. for ages 18 and older using the MDRD formula (not corrected for weight), is valid for stable renal function. Globulin (S) [Mass/Vol] 3.1 g/dL 2.3 - 3.5 g/dL [facility] Glucose [Mass/Vol] 95 mg/dL 70 - 99 mg/dL [facility] Potassium reflex Magnesium 4.2 [facility] Sodium [Moles/Vol] 138 mmol/L [facility] Urea nitrogen (BldV) [Mass/Vol] 14 mg/dL 6 - 20 mg/dL [facility] Culture, Wound AerobicShen 10-28-2021 Culture, Wound Aerobic, Anaerobic ORDER#: [id number] ORDERED BY: SPRING OROZCO SOURCE: Incision COLLECTED: 10/28/21 16:45 ANTIBIOTICS AT [place].: RECEIVED : 10/28/21 22:09 Culture, Wound Aerobic, Anaerobic PRELIM 11/01/21 08:12 Direct Exam: NO NEUTROPHILS SEEN Direct Exam: NO BACTERIA SEEN Cult,Aerobe/Anaerobe: GRAM NEGATIVE RODS Cult,Aerobe/Anaerobe: LIGHT GROWTH Cult,Aerobe/Anaerobe: Mixed skin to Cult,Aerobe/Anaerobe: No anaerobic organisms isolated at 3 days. Performed at [address] [address] Normal [facility] Comment on above: Performed By: #### I CWAN #### [facility] [address] [facility] [id number] , Urineon 2 Beta HCG ( test) Ql (U) Negative Detects HCG level >20 MIU/mL [facility] UR HCG Qualitativeon 022 Beta HCG ( test) Ql (U) Negative Normal Detects HC [facility] Comment on above: Performed By: #### C BCWD #### [facility] [address] [facility] [address] Urinalysis with Reflex to Cu ltureon 10-28-2021 Bilirubin Urine Negative Negative [facility] Blood, Urine Negative Negative [facility] Clarity, UA Clear Clear [facility] Color, UA Yellow Straw/Yellow [facility] Glucose, Ur Negative Negative mg/dL [facility] Ketones Ql (U) Negative Negative mg/dL [facility] Leukocyte esterase Test strip Ql (U) Negative Negative [facility] Nitrite, Urine Negative Negative [facility] pH, UA 5.5 5 - 9 [facility] Protein, UA Negative Negative mg/dL [facility] Specific [place], UA 1.015 1.005 - 1.03 [facility] Urine Reflex to Culture Not Indicated [facility] Urobilinogen, Urine 0.2 NINF [facility] Urinalysis, reflex to cultur minoo 10-28-2021 Bilirubin Ql (U) Negative Normal Negative [facility] Comment on above: Performed By: #### U AR #### [facility] [address] [place] [address] Clarity (U) Clear Normal Clear [facility] Comment on above: Performed By: #### U AR #### [facility] [address] [place] [address] Color (U) Yellow Normal Straw/Pitt [facility] Comment on above: Performed By: #### U AR #### [facility] [address] [place] [address] Glucose Ql (U) Negative Normal Negative [facility] Comment on above: Performed By: #### U AR #### [facility] [address] [place] [address] Hemoglobin Ql (U) Negative Normal Negative [facility] Comment on above: Performed By: #### U AR #### [facility] [address] [place] [address] Ketones Ql (U) Negative Normal Negative [facility] Comment on above: Performed By: #### U AR #### [facility] [address] [place] [address] Leukocyte esterase Test strip Ql (U) Negative Normal Negative [facility] Comment on above: Performed By: #### U AR #### [facility] [address] [place] [address] Nitrite Ql (U) Negative Normal Negative [facility] Comment on above: Performed By: #### U AR #### [facility] [address] [place] [address] pH (U) 5.5 [pH] Normal 5.0-9.0 [facility] Comment on above: Performed By: #### U AR #### [facility] [address] [place] [address] Protein Ql (U) Negative Normal Negative [facility] Comment on above: Performed By: #### U AR #### [facility] [address] [place] [id number] Specific gravity (U) [Rel density] 1.015 Normal 1.005-1.03 [facility] Comment on above: Performed By: #### U AR #### [facility] [address] [facility] [address] Urine Reflexed to Culture Not Indicated Normal [facility] Comment on above: Performed By: #### U AR #### [facility] [address] [place] [address] Urobilinogen Qn (U) 0.2 {Ginger'U}/dL Normal < 2.0 [facility] Comment on above: Performed By: #### U AR #### [facility] [address] [facility] [address] Allergen, Food, Comprehensiv e Profile 08-31-2021 Allergen, Food, Barley IgE <0.10 Normal [facility] Allergen, Food, Beef IgE <0.10 [facility] Allergen, Food, Cabbage <0.10 [facility] Allergen, Food, Carrot <0.10 [facility] Allergen, Food, Chicken <0.10 [facility] Allergen, Food, Codfish IgE <0.10 [facility] Allergen, Food, [place] IgE <0.10 Normal [facility] Allergen, Food, Crab IgE <0.10 [facility] Allergen, Food, Egg White <0.10 [facility] Allergen, Food, Grape IgE <0.10 [facility] Allergen, Food, Lettuce IgE <0.10 Normal [facility] Allergen, Food, Milk (Cow) IgE <0.10 Normal [facility] Allergen, Food, [place] <0.10 [facility] Allergen, Food, Oat IgE <0.10 [facility] Allergen, Food, [place] IgE <0.10 Normal [facility] Allergen, Food, Peanut IgE <0.10 [facility] Allergen, Food, Pepper C. annuum IgE <0.10 Normal [facility] Allergen, Food, Pork IgE <0.10 Normal [facility] Comment on above: Result Comment: [facility] [address] [place], [place] [id number] ([phone] Allergen, Food, Potato <0.10 Normal [facility] Allergen, Food, Rice IgE <0.10 Normal [facility] Allergen, Food, [place] IgE <0.10 Normal [facility] Allergen, Food, Shrimp IgE <0.10 Normal [facility] Allergen, Food, Soybean IgE <0.10 Normal [facility] Allergen, Food, Tomato IgE <0.10 Normal [facility] Allergen, Food, Tuna IgE <0.10 Normal [facility] Allergen, Food, Wheat IgE <0.10 Normal [facility] Comment on above: Result Comment: ALLERGEN, INTERP, [...] even anaphylaxis. Immunoglobulin E 53 IU/mL Normal [facility] Comment on above: Result Comment: [facility] [address] [place], [place] [id number] ([phone] CBC With Platelet and Differ entialon 08-21-2021 Abs Imm Granulocytes 0.0 K/uL Normal [facility] Comment on above: Performed By: #### C BCWD #### [facility] [address] [place] [id number] Basophils (Bld) [#/Vol] 0.0 10*3/uL Normal 0.0-0.1 [facility] Comment on above: Performed By: #### C BCWD #### [facility] [address] [place] [address] Basophils/100 WBC (Bld) 0.3 % Normal 0.1-1.2 [facility] Comment on above: Performed By: #### C BCWD #### [facility] [address] [place] [address] Eosinophils (Bld) [#/Vol] 0.2 10*3/uL Normal 0.0-0.4 [facility] Comment on above: Performed By: #### C BCWD #### [facility] [address] [place] [address] Eosinophils/100 WBC (Bld) 2.4 % Normal 0.7-5.8 [facility] Comment on above: Performed By: #### C BCWD #### [facility] [address] [place] [address] Erythrocyte distribution width (RBC) [Ratio] 12.6 % Normal 11.7-14.4 [facility] Comment on above: Performed By: #### C BCWD #### [facility] [address] [place] [address] Hematocrit (Bld) [Volume fraction] 41.7 % Normal 37.0-47.0 [facility] Comment on above: Performed By: #### C BCWD #### [facility] [address] [place] [address] Hemoglobin (Bld) [Mass/Vol] 13.6 g/dL Normal 11.2-15.7 [facility] Comment on above: Performed By: #### C BCWD #### [facility] [address] [place] [address] Imm Granulocytes 0.3 % Normal [facility] Comment on above: Performed By: #### C BCWD #### [facility] [address] [place] [address] Lymphocytes (Bld) [#/Vol] 2.2 10*3/uL Normal 1.2-3.7 [facility] Comment on above: Performed By: #### C BCWD #### [facility] [address] [place] [address] Lymphocytes/100 WBC (Bld) 25.3 % Normal [facility] Comment on above: Performed By: #### C BCWD #### [facility] [address] [place] [address] MCH (RBC) [Entitic mass] 30.8 pg Normal 25.6-32.2 [facility] Comment on above: Performed By: #### C BCWD #### [facility] [address] [place] [address] MCHC 32.6 % Normal 32.2-35.5 [facility] Comment on above: Performed By: #### C BCWD #### [facility] [address] [place] [address] MCV (RBC) [Entitic vol] 94.6 fL Normal 79.4-94.8 [facility] Comment on above: Performed By: #### C BCWD #### [facility] [address] [place] [address] Monocytes (Bld) [#/Vol] 0.4 10*3/uL Normal 0.2-0.9 [facility] Comment on above: Performed By: #### C BCWD #### [facility] [address] [place] [address] Monocytes/100 WBC (Bld) 4.4 % Low 4.7-12.5 [facility] Comment on above: Performed By: #### C BCWD #### [facility] [address] [place] [address] Neutrophils (Bld) [#/Vol] 5.8 10*3/uL Normal 1.6-6.1 [facility] Comment on above: Performed By: #### C BCWD #### [facility] [address] [place] [address] Neutrophils/100 WBC (Bld) 67.3 % Normal 34.0-71.1 [facility] Comment on above: Performed By: #### C BCWD #### [facility] [address] [place] [id number] Platelets (Bld) [#/Vol] 200 10*3/uL Normal 182-369 [facility] Comment on above: Performed By: #### C BCWD #### [facility] [address] [place] [id number] RBC (Bld) [#/Vol] 4.41 10*6/uL Normal 3.93-5.22 [facility] Comment on above: Performed By: #### C BCWD #### [facility] [address] [place] [id number] WBC (Bld) [#/Vol] 8.6 10*3/uL Normal 4.0-10.0 [facility] Comment on above: Performed By: #### C BCWD #### [facility] [address] [place] [id number] CBC with Auto Differentialon 08-21-2021 Basophils (Bld) [#/Vol] 0.0 10*3/uL 0.0 - 0.1 K/uL [facility] Basophils/100 WBC (Bld) 0.3 % 0.1 - 1.2 % [facility] Eosinophils (Bld) [#/Vol] 0.2 10*3/uL 0.0 - 0.4 K/uL [facility] Eosinophils/100 WBC (Bld) 2.4 % 0.7 - 5.8 % [facility] Hematocrit (Bld) [Volume fraction] 41.7 % 37.0 - 47.0 % [facility] Hemoglobin (Bld) [Mass/Vol] 13.6 g/dL 11.2 - 15.7 g/dL [facility] Immature granulocytes (Bld) [#/Vol] 0.0 10*3/uL [facility] Immature granulocytes/100 WBC (Bld) 0.3 % [facility] Interpretation and review of laboratory results Abnormal [facility] Lymphocytes (Bld) [#/Vol] 2.2 10*3/uL 1.2 - 3.7 K/uL [facility] Lymphocytes/100 WBC (Bld) 25.3 % [facility] MCH (RBC) [Entitic mass] 30.8 pg 25.6 - 32.2 pg [facility] MCHC (RBC) [Mass/Vol] 32.6 % 32.2 - 35.5 % [facility] MCV (RBC) [Entitic vol] 94.6 fL 79.4 - 94.8 fL [facility] Monocytes (Bld) [#/Vol] 0.4 10*3/uL 0.2 - 0.9 K/uL [facility] Monocytes/100 WBC (Bld) 4.4 % Low 4.7 - 12.5 % [facility] Neutrophils Absolute 5.8 K/uL 1.6 - 6 .1 K/uL [facility] Neutrophils/100 WBC (Bld) 67.3 % 34.0 - 71.1 % [facility] Platelet distribution width (Bld) [Ratio] 12.6 % 11.7 - 14.4 % [facility] Platelets (Bld) [#/Vol] 200 10*3/uL 182 - 369 K/uL [facility] RBC (Bld) [#/Vol] 4.41 10*6/uL [facility] WBC (Bld) [#/Vol] 8.6 10*3/uL 4.0 - 10.0 K/uL [facility] COVID-19on 08-21-2021 SARS-CoV-2 (COVID-19) RNA JOSIE+probe Ql (Unsp spec) Not detected Normal Not Detect [facility] Comment on above: Result Comment: Brittani sanz [...] authorized laboratories. Fact sheet for Healthcare Providers: https://www.fda.gov/media/183217/download Fact sheet for Patients: https://www.fda.gov/media/185215/download METHODOLOGY: Isothermal Nucleic Acid Amplification Performed By: #### C BCWD #### [facility] [address] [place] [id number] COVID-19, Rapidon 08-21-2021 SARS-CoV-2 (COVID-19) RNA JOSIE+probe Ql (Unsp spec) Not detected Not Detected [facility] Comment on above: Rapid NAAT: Negative [...] authorized laboratories. Fact sheet for Healthcare Providers: https://www.fda.gov/media/201473/download Fact sheet for Patients: https://www.fda.gov/media/666101/download METHODOLOGY: Isothermal Nucleic Acid Amplification [facility] CT ABDOMEN PELVIS W IV [...] Some of this report was completed using [employer] voice-recognition technology and may include unintended errors [...] Solis MD 08/21/21 Final result Normal [facility] Comprehensive Metabolic Pane l reflex Mgon 08-21-2021 Albumin [Mass/Vol] 4.3 g/dL Normal 3.5-4.6 [facility] Comment on above: Performed By: #### C BCWD #### [facility] [address] [place] [address] ALP [Catalytic activity/Vol] 116 U/L Normal 40-130 [facility] Comment on above: Performed By: #### C BCWD #### [facility] [address] [place] [address] ALT [Catalytic activity/Vol] 8 U/L Normal 0-33 [facility] Comment on above: Performed By: #### C BCWD #### [facility] [address] [place] [address] Anion gap [Moles/Vol] 13 mmol/L Normal 9-15 [facility] Comment on above: Performed By: #### C BCWD #### [facility] [address] [place] [address] AST [Catalytic activity/Vol] 10 U/L Normal 0-35 [facility] Comment on above: Performed By: #### C BCWD #### [facility] [address] [place] [address] Bilirubin [Mass/Vol] mg/dL Normal 0.2-0.7 [facility] Comment on above: Performed By: #### C BCWD #### [facility] [address] [place] [address] Calcium [Mass/Vol] 9.3 mg/dL Normal 8.5-9.9 [facility] Comment on above: Performed By: #### C BCWD #### [facility] [address] [place] [address] Chloride [Moles/Vol] 105 mmol/L Normal 95-107 [facility] Comment on above: Performed By: #### C BCWD #### [facility] [address] [place] [address] CO2 [Moles/Vol] 22 mmol/L Normal 20-31 [facility] Comment on above: Performed By: #### C BCWD #### [facility] [address] [place] [address] Creatinine [Mass/Vol] 0.48 mg/dL Low 0.50-0.90 [facility] Comment on above: Performed By: #### C BCWD #### [facility] [address] [place] [address] GFR >60.0 Normal >60 [facility] Comment on above: Result Comment: >60 mL/min/1.73m2 EGFR, calc. for ages 18 and older using the MDRD formula (not corrected for weight), is valid for stable renal function. Performed By: #### C BCWD #### [facility] [address] [place] [address] GFR/1.73 sq M.predicted among blacks MDRD (S/P/Bld) [Vol rate/Area] mL/min/{1.73_m2} Normal >60 [facility] Comment on above: Result Comment: >60 mL/min/1.73m2 EGFR, calc. for ages 18 and older using the MDRD formula (not corrected for weight), is valid for stable renal function. Performed By: #### C BCWD #### [facility] [address] [place] [address] Globulin (S) [Mass/Vol] 2.5 g/dL Normal 2.3-3.5 [facility] Comment on above: Performed By: #### C BCWD #### [facility] [address] [place] [address] Glucose [Mass/Vol] 114 mg/dL Critically high 70-99 M [facility] Comment on above: Performed By: #### C BCWD #### [facility] [address] [place] [address] Magnesium [Moles/Vol] 3.6 mmol/L Normal 3.4-4.9 [facility] Comment on above: Performed By: #### C BCWD #### [facility] [address] [place] [address] Protein [Mass/Vol] 6.8 g/dL Normal 6.3-8.0 [facility] Comment on above: Performed By: #### C BCWD #### [facility] [address] [place] [address] Sodium [Moles/Vol] 140 mmol/L Normal 135-144 [facility] Comment on above: Performed By: #### C BCWD #### [facility] [address] [place] [address] Urea nitrogen [Mass/Vol] 10 mg/dL Normal 6-20 [facility] Comment on above: Performed By: #### C BCWD #### [facility] [address] [place] [address] Comprehensive Metabolic Pane l w/ Reflex to MGon 08-21-2021 Albumin [Mass/Vol] 4.3 g/dL 3.5 - 4.6 g/dL [facility] ALP (Bld) [Catalytic activity/Vol] 116 U/L 40 - 130 U/L [facility] ALT [Catalytic activity/Vol] 8 U/L 0 - 33 U/L [facility] Anion gap [Moles/Vol] 13 mmol/L [facility] AST [Catalytic activity/Vol] 10 U/L 0 - 35 U/L [facility] Bilirubin [Mass/Vol] mg/dL 0.2 - 0 .7 mg/dL [facility] Calcium [Mass/Vol] 9.3 mg/dL 8.5 - 9.9 mg/dL [facility] Chloride [Moles/Vol] 105 mmol/L [facility] CO2 [Moles/Vol] 22 mmol/L [facility] Creatinine [Mass/Vol] 0.48 mg/dL Low 0.50 - 0.90 mg/dL [facility] Free PSA/Total PSA [Mass fraction] 6.8 g/dL 6.3 - 8.0 g/dL [facility] GFR >60.0 >60 [facility] Comment on above: >60 mL/min/1.73m2 EG FR, calc. for ages 18 and older using the MDRD formula (not corrected for weight), is valid for stable renal function. GFR Non- >60.0 >60 [facility] Comment on above: >60 mL/min/1.73m2 EG FR, calc. for ages 18 and older using the MDRD formula (not corrected for weight), is valid for stable renal function. Globulin (S) [Mass/Vol] 2.5 g/dL 2.3 - 3.5 g/dL [facility] Glucose [Mass/Vol] 114 mg/dL High 70 - 99 mg/dL [facility] Interpretation and review of laboratory results Abnormal [facility] Potassium reflex Magnesium 3.6 [facility] Sodium [Moles/Vol] 140 mmol/L [facility] Urea nitrogen (BldV) [Mass/Vol] 10 mg/dL 6 - 20 mg/dL [facility] Lipaseon 08-21-2021 Lipase [Catalytic activity/Vol] 18 U/L Normal 12-95 [facility] Comment on above: Performed By: #### L IPAS #### [facility] [address] [id number] Lipase [Catalytic activity/Vol] 18 U/L 12 - 95 U/L [facility] No Panel Informationon 08-21 [facility] , Urineon 2 Beta HCG ( test) Ql (U) Negative Detects HCG level >20 MIU/mL [facility] UR HCG Qualitativeon 022 Beta HCG ( test) Ql (U) Negative Normal Detects [facility] Comment on above: Performed By: #### C BCWD #### [facility] [address] [place] [address] Urinalysis with Reflex to Cu ltureon 08-21-2021 Bilirubin Urine Negative Negative [facility] RS [facility] Blood, Urine Negative Negative [facility] Clarity, UA Clear Clear [facility] Color, UA Yellow Straw/Yellow [facility] Glucose, Ur Negative Negative mg/dL [facility] Ketones Ql (U) Negative Negative mg/dL [facility] Leukocyte esterase Test strip Ql (U) Negative Negative [facility] Nitrite, Urine Negative Negative [facility] pH, UA 5.5 [facility] Protein, UA Negative Negative mg/dL [facility] Specific [place], UA <=1.005 [facility] Urine Reflex to Culture Not Indicated [facility] Urobilinogen, Urine 0.2 <2.0 E.U./dL [facility] Urinalysis, reflex to cultur minoo 08-21-2021 Bilirubin Ql (U) Negative Normal Negative [facility] Comment on above: Performed By: #### C BCWD #### [facility] [address] [place] [address] Clarity (U) Clear Normal Clear [facility] Comment on above: Performed By: #### C BCWD #### [facility] [address] [place] [address] Color (U) Yellow Normal Straw/Pitt [facility] Comment on above: Performed By: #### C BCWD #### [facility] [address] [place] [address] Glucose Ql (U) Negative Normal Negative [facility] Comment on above: Performed By: #### C BCWD #### [facility] [address] [place] [address] Hemoglobin Ql (U) Negative Normal Negative [facility] Comment on above: Performed By: #### C BCWD #### [facility] [address] [place] [address] Ketones Ql (U) Negative Normal Negative [facility] Comment on above: Performed By: #### C BCWD #### [facility] [address] [place] [address] Leukocyte esterase Test strip Ql (U) Negative Normal Negative [facility] Comment on above: Performed By: #### C BCWD #### [facility] [address] [place] [address] Nitrite Ql (U) Negative Normal Negative [facility] Comment on above: Performed By: #### C BCWD #### [facility] [address] [place] [address] pH (U) 5.5 [pH] Normal 5.0-9.0 [facility] Comment on above: Performed By: #### C BCWD #### [facility] [address] [place] [address] Protein Ql (U) Negative Normal Negative [facility] Comment on above: Performed By: #### C BCWD #### [facility] [address] [place] [address] Specific gravity (U) [Rel density] <=1.005 Normal 1.005-1.03 [facility] Comment on above: Performed By: #### C BCWD #### [facility] [address] [place] [address] Urine Reflexed to Culture Not Indicated Normal [facility] Comment on above: Performed By: #### C BCWD #### [facility] [address] [place] [address] Urobilinogen Qn (U) 0.2 {Ginger'U}/dL Normal < 2.0 [facility] Comment on above: Performed By: #### C BCWD #### [facility] [address] [place] [address] CBC WITH AUTO DIFFERENTIALon 02-29-2020 Basophils (Bld) [#/Vol] 0.0 10*3/uL 0 - 0.2 K/uL [facility] [place] Basophils/100 WBC (Bld) 0.4 % [place] Eosinophils (Bld) [#/Vol] 0.2 10*3/uL 0 - 0.7 K/uL [place] Eosinophils/100 WBC (Bld) 2.6 % [place] Erythrocyte distribution width (RBC) [Ratio] 13.6 % 11.5 - 14.5 % [place] Hematocrit (Bld) [Volume fraction] 40.3 % 37 - 47 % [place] Hemoglobin (Bld) [Mass/Vol] 13.6 g/dL 12 - 16 g/dL [place] Lymphocytes (Bld) [#/Vol] 1.7 10*3/uL 1 - 4.8 K/uL [place] Lymphocytes/100 WBC (Bld) 21.0 % [place] MCH (RBC) [Entitic mass] 31.0 pg 27 - 31.3 pg [place] MCHC (RBC) [Mass/Vol] 33.9 % 33 - 37 % [place] MCV (RBC) [Entitic vol] 91.6 fL 82 - 100 fL [place] Monocytes (Bld) [#/Vol] 0.4 10*3/uL 0.2 - 0.8 K/uL [place] Monocytes/100 WBC (Bld) 4.6 % [place] Neutrophils Absolute 5.6 K/uL 1.4 - 6 .5 K/uL [place] Neutrophils/100 WBC (Bld) 71.4 % [place] Platelets (Bld) [#/Vol] 195 10*3/uL 130 - 400 K/uL [place] RBC (Bld) [#/Vol] 4.40 10*6/uL [place] WBC (Bld) [#/Vol] 7.9 10*3/uL 4.8 - 10.8 K/uL [place] COVID-19on 02-29-2020 SARS-CoV-2, NAAT Not Detected Not Detected [place] Comment on above: Rapid NAAT: Negative [...] authorized laboratories. Fact sheet for Healthcare Providers: https://www.fda.gov/media/338280/download Fact sheet for Patients: https://www.fda.gov/media/794091/download METHODOLOGY: Isothermal Nucleic Acid Amplification POC UR-QUALon 02-11 Beta HCG ( test) Ql (U) Negative Negative [place] Lot Number HCG [id number] [place] Negative QC Pass/Fail Pass [place] Positive QC Pass/Fail Pass [place] Hemoglobinon 11-03-2019 Hemoglobin (Bld) [Mass/Vol] 11.2 g/dL Low 12 - 16 g/dL [place] Interpretation and review of laboratory results Abnormal [place] RPRon 11-03-2019 Reagin Ab RPR Ql (S) Non-reactive Non-reactive [place] CBC auto differentialon 10-13 Basophils (Bld) [#/Vol] 0.0 10*3/uL 0 - 0.2 K/uL [place] Basophils/100 WBC (Bld) 0.3 % [place] Eosinophils (Bld) [#/Vol] 0.1 10*3/uL 0 - 0.7 K/uL [place] Eosinophils/100 WBC (Bld) 1.2 % [place] Erythrocyte distribution width (RBC) [Ratio] 13.4 % 11.5 - 14.5 % [place] Hematocrit (Bld) [Volume fraction] 34.9 % Low 37 - 47 % [place] Hemoglobin (Bld) [Mass/Vol] 11.7 g/dL Low 12 - 16 g/dL [place] Interpretation and review of laboratory results Abnormal [place] Lymphocytes (Bld) [#/Vol] 1.4 10*3/uL 1 - 4.8 K/uL [place] Lymphocytes/100 WBC (Bld) 11.4 % [place] MCH (RBC) [Entitic mass] 31.2 pg 27 - 31.3 pg [place] MCHC (RBC) [Mass/Vol] 33.6 % 33 - 37 % [place] MCV (RBC) [Entitic vol] 93.0 fL 82 - 100 fL [place] Monocytes (Bld) [#/Vol] 0.5 10*3/uL 0.2 - 0.8 K/uL [place] Monocytes/100 WBC (Bld) 4.2 % [place] Neutrophils Absolute 10.1 K/uL High 1.4 - 6 .5 K/uL [place] Neutrophils/100 WBC (Bld) 82.9 % [place] Platelets (Bld) [#/Vol] 191 10*3/uL 130 - 400 K/uL [place] RBC (Bld) [#/Vol] 3.75 10*6/uL Low [place] WBC (Bld) [#/Vol] 12.1 10*3/uL High 4.8 - 10.8 K/uL [place] Comprehensive Metabolic Pane fortunato 11-02-2019 Albumin [Mass/Vol] 3.2 g/dL Low 3.5 - 4.6 g/dL [place] ALP [Catalytic activity/Vol] 147 U/L High 40 - 130 U/L [place] ALT [Catalytic activity/Vol] 6 U/L 0 - 33 U/L [place] Anion gap [Moles/Vol] 10 mmol/L [place] AST [Catalytic activity/Vol] 7 U/L 0 - 35 U/L [place] Bilirubin Ql (U) <0.2 0.2 - 0.7 mg/dL [place] Calcium [Mass/Vol] 8.4 mg/dL Low 8.5 - 9.9 mg/dL [place] Chloride [Moles/Vol] 104 mmol/L [place] CO2 [Moles/Vol] 21 mmol/L [place] Creatinine [Mass/Vol] 0.3 mg/dL Low 0.5 - 0.9 mg/dL [place] GFR >60.0 >60 [place] Comment on above: >60 mL/min/1.73m2 EG FR, calc. for ages 18 and older using the MDRD formula (not corrected for weight), is valid for stable renal function. GFR Non- >60.0 >60 [place] Comment on above: >60 mL/min/1.73m2 EG FR, calc. for ages 18 and older using the MDRD formula (not corrected for weight), is valid for stable renal function. Globulin (S) [Mass/Vol] 2.8 g/dL 2.3 - 3.5 g/dL [place] Glucose [Mass/Vol] 103 mg/dL High 70 - 99 mg/dL [place] Interpretation and review of laboratory results Abnormal [place] Potassium [Moles/Vol] 3.9 mmol/L [place] Protein [Mass/Vol] 6.0 g/dL Low 6.3 - 8 g/dL [place] Sodium [Moles/Vol] 135 mmol/L [place] Urea nitrogen [Mass/Vol] 8 mg/dL 6 - 20 mg/dL [place] DRUG SCREEN MULTI URINEon Amphetamine Screen, Urine Negative Negative <1000 ng/mL [place] Barbiturate Screen, Ur Negative Negative < 200 ng/mL [place] Benzodiazepine Screen, Urine Negative Negative < 200 ng/mL [place] Cannabinoid Scrn, Ur Negative Negativ e < 50 ng/mL [place] Cocaine Metabolite Screen, Urine Negative Negative < 300 ng/mL [place] Drug Screen Comment: see below [place] Comment on above: This method is a scr eening test to detect only these drug classes as part of a medical workup. Confirmatory testing by another method should be ordered if clinically indicated. Methadone Screen, Urine Negative Negative <300 ng/mL [place] Comment on above: Effective: 10/20/18 New Test for Qualitative Drug Screen. Opiate Scrn, Ur Negative Negative < 300 ng/mL [place] Oxycodone Urine Negative Negative <10 0 ng/mL [place] Comment on above: Effective: 10/20/18 New Test for Qualitative Drug Screen. PCP Screen, Urine Negative Negative < 25 ng/mL [place] Propoxyphene Scrn, Ur Negative Negative <300 ng/mL [place] Comment on above: Effective: 10/20/18 New Test for Qualitative Drug Screen. Hepatitis B surface antigeno n 11-02-2019 Hep B S Ag Interp Non-reactive [place] Rubella antibody, IgGon 10-13 Rubella Antibody IgG 69.5 IU/mL [place] Comment on above: Patient's result ind icates immunity. Default Normal Ranges >=10 Presumed Immune <10 Presumed Not immune TYPE AND SCREENon 11-02-2019 ABO/Rh Positive [place] Urinalysison 11-02-2019 Bilirubin Urine Negative Negative [place] Blood, Urine Negative Negative [place] Clarity, UA Clear Clear [place] Color, UA Yellow Straw/Yellow [place] Glucose, Ur Negative Negative mg/dL [place] Ketones Ql (U) Negative Negative mg/dL [place] Leukocyte esterase Test strip Ql (U) Negative Negative [place] Nitrite, Urine Negative Negative [place] pH, UA 7.5 [place] Protein (U) [Mass/Vol] Negative Negative mg/dL [place] Specific [place], UA 1.020 [place] Urobilinogen, Urine 0.2 <2.0 E.U./dL [place] Otheron 06-19-2019 APPROPRIATE GROWTH SINCE LAST SONOGRAM. [place] Sonogram #: 1 Presentation: Transverse, head [...] amniotic fluid is within normal limits. [employer] [facility] [place] [place] Manny, Chpo Incoming Radiant Results From [employer]/DGSE - 06/19/2019 5:09 PM EDT Sonogram #: [...] limits. IMPRESSION: APPROPRIATE GROWTH SINCE LAST SONOGRAM. [employer], [employer] US OB LESS THAN 14 WEEKS SIN GLE OR FIRST GESTATIONon 04-14-2019 THERE IS A SINGLE IU P WITH ESTIMATED GESTATIONAL AGE BASED UPON CROWN-RUMP LENGTH OF 10 WEEKS 2 DAYS +/- 1 WEEK WITH HEART RATE OF 155 BPM. ANATOMY IS NOT ASSESSED DUE TO EARLY GESTATIONAL AGE. THE RIGHT OVARY IS SURGICALLY ABSENT. THE LEFT OVARY SUBMITTED VISUALIZED. [employer] ID, [place] TRANSABDOMINAL EXAMINATION OF THE PELVIS CLINICAL DATA: [...] ovary is not visualized. No free fluid. [facility] Manny, Chpo Incoming Radiant Results From [employer] - 04/14/2019 4:16 PM EST TRANSABDOMINAL EXAMINATION [...] SURGICALLY ABSENT. THE LEFT OVARY SUBMITTED VISUALIZED. [facility] PROGRESSon 09-30-2018 PROGRESS HNO ID: [id number] Author: Maranda Parker (Christian) Vimal Service: ? Author Type: PAYROLL HUMAN RESOURCES ASSISTANT Type: Progress Notes Filed: 09/30/2018 3:29 PM [...] with all of its relevant components. Maranda Elena YepezCelis, OD September 30, 2018 2:08 PM Normal [facility] PROGRESSon 04-24-2018 PROGRESS HNO ID: [id number] Author: Maranda Celis Service: ? Author Type: PAYROLL HUMAN RESOURCES ASSISTANT Type: Progress Notes Filed: 04/24/2018 3:32 PM [...] OD April 24, 2018 3:31 PM Normal [facility] Office Visit (Urgent Care)on 08-21-2017 Office Visit (Urgent Care) Chief Complaint Rash History of Present Cpsviph74-[id number] female who 2 hours ago was sitting [...] 08/21/2017 5:38:10 PM Vitals Vital Signs Recorded: [id number] 05:39QNYkahhbelwui10. 5 FHeart Tyhk172Bvuiesqqthy33J ztvvepq117Ekmjeessl48 Height5 ft 3 zqYewrrw701 lb BMI Yxjhwzxfhx35STL Calculated1.83O2 Vodktysxoa69Dvol Scale0 Physical ExamPatient appears in no apparent [...] 160 cm Sulema Teran DO Work Phone: [employer] 12-16-2021 07:12-0400 Body mass index (BMI) [Ratio] 31.89 kg/m2 Sulema Teran DO Work Phone: [employer] 12-16-2021 07:12-0400 Body temperature 98.91 [degF] Sulema Teran DO Work Phone: [employer] 12-16-2021 07:12-0400 Body weight 81.65 kg Sulema Teran DO Work Phone: [employer] 12-16-2021 07:12-0400 Diastolic blood pressure 84 mm[Hg] Sulema Teran DO Work Phone: [employer] 12-16-2021 07:12-0400 Heart rate 104 /min Sulema Teran DO Work Phone: [employer] 12-16-2021 07:12-0400 Respiratory rate 18 /min Sulema Teran DO Work Phone: [facility] [employer] 12-16-2021 07:12-0400 SaO2% (BldA) [Mass fraction] 98 % Sulema Teran DO Work Phone: [facility] [employer] 12-16-2021 07:12-0400 Systolic blood pressure 127 mm[Hg] Sulema Teran DO Work Phone: [facility] [employer] 10-28-2021 15:43-0400 Body height 160 cm Nikki Martha-David PA-C Work Phone: [facility] [employer] 10-28-2021 15:43-0400 Body mass index (BMI) [Ratio] 31.89 kg/m2 Nikki Martha-David PA-C Work Phone: [facility] [employer] 10-28-2021 15:43-0400 Body temperature 98.1 [degF] Nikki Martha-David PA-C Work Phone: [facility] [employer] 10-28-2021 15:43-0400 Body weight 81.65 kg Nikki Martha-David PA-C Work Phone: [facility] [employer] 10-28-2021 15:43-0400 Diastolic blood pressure 81 mm[Hg] Nikki Martha-David PA-C Work Phone: [facility] [employer] 10-28-2021 15:43-0400 Heart rate 93 /min Nikki Martha-David PA-C Work Phone: [facility] [employer] 10-28-2021 15:43-0400 Respiratory rate 20 /min Nikki Martha-David PA-C Work Phone: [facility] [employer] 10-28-2021 15:43-0400 SaO2% (BldA) [Mass fraction] 98 % Nikki Martha-David PA-C Work Phone: [employer] 10-28-2021 15:43-0400 Systolic blood pressure 130 mm[Hg] Nikki Froilan PA-C Work Phone: [facility] [employer] 08-21-2021 06:21-0400 Body temperature 98.2 [degF] Penny Ritter MD Work Phone: [employer] 08-21-2021 06:21-0400 Diastolic blood pressure 58 mm[Hg] Penny Ritter MD Work Phone: [employer] 08-21-2021 06:21-0400 Heart rate 81 /min Penny Ritter MD Work Phone: [employer] 08-21-2021 06:21-0400 Respiratory rate 16 /min Penny iRtter MD Work Phone: [employer] 08-21-2021 06:21-0400 SaO2% (BldA) [Mass fraction] 97 % Penny Ritter MD Work Phone: [employer] 08-21-2021 06:21-0400 Systolic blood pressure 116 mm[Hg] Penny Ritter MD Work Phone: [employer] 08-21-2021 01:09-0400 Body height 160 cm Penny Ritter MD Work Phone: [employer] 08-21-2021 01:09-0400 Body mass index (BMI) [Ratio] 32.06 kg/m2 Penny Ritter MD Work Phone: [employer] 08-21-2021 01:09-0400 Body weight 82.1 kg Penny Ritter MD Work Phone: [employer] 11-05-2020 07:21-0400 Body temperature 98.1 [degF] Rebecca Gonzalez [employer] Work Phone: 11-05-2020 07:21-0400 Diastolic blood pressure 71 mm[Hg] Rebecca Gonzalez [employer] Phone: 11-05-2020 07:21-0400 Heart rate 94 /min Rebecca Gonzalez [employer] Phone: 11-05-2020 07:21-0400 Respiratory rate 18 /min Rebecca Gonzalez [employer] Phone: 11-05-2020 07:21-0400 SaO2% (BldA) [Mass fraction] 99 % Rebecca Gonzalez [employer] Phone: 11-05-2020 07:21-0400 Systolic blood pressure 116 mm[Hg] Rebecca Gonzalez [employer] Phone: 02-29-2020 12:25-0500 Body Temperature 97.7 [degF] Rj [employer] [place] 02-29-2020 12:25-0500 BP Diastolic 56 mm[Hg] Rj [employer] [facility] [place] 02-29-2020 12:25-0500 BP Systolic 123 mm[Hg] Rj [employer] [facility] [place] 02-29-2020 12:25-0500 Pulse (Heart Rate) 76 /min [facility] 02-29-2020 12:25-0500 Pulse Oximetry 99 % Rj [employer] [facility] [place] 02-29-2020 12:25-0500 Respiratory Rate 16 /min Rj [employer] 02-29-2020 08:15-0500 BMI (Body Mass Index) 34.54 kg/m2 Rj Lauren [employer] [facility] 02-29-2020 08:15-0500 Body weight 88.45 kg Rj [employer] [facility] [place] 02-29-2020 08:15-0500 Height 160 cm [facility] [place] 11-04-2019 07:30-0400 Body Temperature 98.29 [degF] [facility] 11-04-2019 07:30-0400 BP Diastolic 68 mm[Hg] Rj [facility] [place] 11-04-2019 07:30-0400 BP Systolic 115 mm[Hg] Rj [facility] [place] 11-04-2019 07:30-0400 Pulse (Heart Rate) 88 /min Rj [facility] 11-04-2019 07:30-0400 Respiratory Rate 16 /min Rj [facility] 11-03-2019 12:37-0400 Pulse Oximetry 99 % Rj [facility] [place] 11-02-2019 07:45-0400 BMI (Body Mass Index) 37.91 kg/m2 Rj Aguilar [facility] 11-02-2019 07:45-0400 Body weight 97.07 kg Rj [facility] [place] 11-02-2019 07:45-0400 Height 160 cm Rj [facility] [place] 09-30-2018 10:02-0400 BMI (Body Mass Index) 31 kg/m2 Tip [facility] 09-30-2018 10:02-0400 Body Temperature 98.49 [degF] Tip [facility] 09-30-2018 10:02-0400 Body [facility] [place] 09-30-2018 10:02-0400 BP Diastolic 71 mm[Hg] [facility] [place] 09-30-2018 10:02-0400 BP Systolic 139 mm[Hg] [facility] [place] 09-30-2018 10:02-0400 Height 160 cm [facility] [place] 09-30-2018 10:02-0400 Pulse (Heart Rate) 102 /min [facility] 09-30-2018 10:02-0400 Pulse Oximetry 98 % [facility] , [place] 09-30-2018 10:02-0400 Respiratory Rate 14 /min [facility] [place], [place] Encounters Encounter Date Encounter Type Care Provider Facility Start: 04-01-2023 End: 04-01-2023 ambulatory JOSE F SETH Not Available Start: 03-21-2023 End: 03-21-2023 ambulatory JOSE F R SETH [facility] Start: 03-18-2023 Chart abstracting Fish lorenz MD Work Phone: [facility] Start: 03-11-2023 End: 03-11-2023 ambulatory JOSE F SETH Not Available Start: 02-18-2023 End: 02-18-2023 ambulatory DONNELL FINCH Not Available Start: 01-29-2023 End: 01-30-2023 ambulatory [facility] Facility[facility] Start: 01-29-2023 End: 01-29-2023 Patient encounter procedure Jose F R SETH [facility] Start: 01-29-2023 End: 01-30-2023 ambulatory Jose F R SETH Facility[facility] Start: 01-29-2023 End: 01-29-2023 Patient encounter procedure Jose F R SETH [facility] Start: 01-11-2023 End: 01-12-2023 ambulatory Jose F R SETH Facility:[facility] Start: 01-11-2023 End: 01-11-2023 Patient encounter procedure Jose F R SETH [facility] Start: 01-10-2023 End: 01-10-2023 ambulatory JOSE F SETH Not Available Start: 12-28-2022 End: 12-28-2022 ambulatory DONNELL FINCH Not Available Start: 07-31-2022 End: 07-31-2022 Emergency department [facility] Start: 04-11-2022 End: 04-12-2022 ambulatory LILIANA CARROLL [facility] Start: 04-11-2022 End: 04-11-2022 Subsequent hospital visit by physician Nikki Mcgovern PA-C Work Phone: [facility] [employer] Comment on above: Tonsillitis with exu date Start: 12-16-2021 End: 12-16-2021 Emergency department patient visit [facility] Start: 12-16-2021 End: 12-16-2021 Emergency department patient visit Sulema Teran DO Work Phone: [facility] ED Comment on above: Bitten by mouse, ini tial encounter (Primary Dx) Start: 11-29-2021 End: 11-29-2021 ambulatory [facility] Start: 10-28-2021 End: 10-28-2021 Emergency department patient visit [facility] Start: 10-28-2021 End: 10-28-2021 [facility] Work Phone: [facility] ED Comment on above: Cellulitis of trunk, unspecified site of trunk (Primary Dx) Start: 08-21-2021 End: 08-21-2021 Emergency department patient visit [facility] Start: 08-21-2021 End: 08-21-2021 Emergency department patient visit Penny Ritter MD Work Phone: [facility] ED Comment on above: Acute gastritis with out hemorrhage, unspecified gastritis type (Primary Dx) Start: 11-05-2020 End: 11-05-2020 Emergency department patient visit Rebecca S Gonzalez DO [facility] ED Comment on above: Dental abscess [...] hospital visit by physician Madhav Ultrasound 3 [facility] Ultrasound Comment on above: Amenorrhea Start: 04-14-2019 End: 04-16-2019 Subsequent hospital visit by physician Olvera Ultrasound Room 1 [facility] Ultrasound Comment on above: Amenorrhea Start: 09-30-2018 End: 09-30-2018 Emergency department patient visit Tip Antunez Work Phone: 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 Other Phone: Start: 08-21-2021 Assay of lipase [...] Rj Aguilar Work Phone: c section x2 [employer] Colonoscopy HipSwap SETH extraction of wisdom teeth [facility] H/O: section Previous c esarean section Mloz 1 Plan of Treatment Date Care Activity Detail Author Start: 12-17-2031 DTaP/Tdap/Td vaccine (3 - Td or Tdap) DTaP/Tdap/Td vaccine (3 - Td or Tdap) [facility] Start: 07-12-2025 Screening for malign ant neoplasm of cervix [facility] Start: 05-27-2024 Screening for malign ant neoplasm of cervix Cervical cancer screen [place], [place] Start: 07-13-2023 Screening for malign ant neoplasm of cervix Pap smear [facility] [employer] Start: 03-21-2023 End: 03-21-2023 Patient encounter procedure 03/21/2023 8:00 AM EST Appointment [facility] [address] [address] [place] [address] [facility] Start: 03-07-2023 Depression Monitoring Depression Mon [employer] [facility] [employer] [facility] Start: 10-12-2022 Influenza vaccination Influenza Vacc ine [facility] Start: 08-29-2022 Depression Monitoring Depression Mon [employer] [facility] [employer] [facility] Start: 06-08-2022 End: 06-08-2022 Patient encounter procedure 06/08/2022 Office Visit Neurology Blas Mike MD [address] [address] [facility] Neurology Start: 02-02-2022 End: 02-02-2022 Patient encounter procedure 02/02/2022 Office Visit Neurology Blas Mike MD [address] [place] [address] [facility] Neurology Start: 01-10-2022 End: 01-10-2022 Patient encounter procedure 01/10/2022 Office Visit Family Medicine Nikki Mcgovern PA-C [address] [place] [address] [facility] Start: 12-18-2021 End: 12-18-2021 Patient encounter procedure 12/18/2021 Office Visit Orthopedic Surgery Alena Chandra MD [address] [place] [address] [facility] Medicine Start: 10-12-2021 Influenza vaccination Flu vaccine (# 1) [facility] Start: 09-29-2021 End: 09-29-2021 Patient encounter procedure 09/29/2021 Office Visit Neurology Blas Mike MD [address] [place] [address] [facility] Neurology Start: 09-11-2021 Influenza vaccination Flu vaccine (# 1) [facility] Start: 01-20-2021 End: 01-20-2021 Patient encounter procedure 01/20/2021 Office Visit Neurology Blas Mike MD [address] [place] [address] [facility] Neurology Start: 12-01-2020 End: 12-01-2020 Patient encounter procedure 12/01/2020 Office Visit Obstetrics and Gynecology Rj Aguilar, [address] [place] [address] [phone] [facility] Obstetrics [facility] Gynecology Start: 10-12-2020 Influenza vaccination Flu vaccine (# 1) [facility] Work Phone: Start: 09-29-2020 End: 09-29-2020 Patient encounter procedure 09/29/2020 Office Visit Family Medicine Nikki Mcgovern PA-C [address] [place] [address] [phone] [facility] Start: 09-16-2020 End: 09-16-2020 Patient encounter procedure 09/16/2020 Office Visit Neurology Blas Mike MD [address] [place] [address] [phone] [facility] Start: 02-16-2020 End: 02-16-2020 Procedure visit 02/16/2020 Procedure visit Obstetrics and Gynecology Rj Aguilar, [place] [address] [place] [address] [phone] [facility]etrics [facility] Start: 12-01-2019 DTaP/Tdap/Td vaccine (2 - Td or Tdap) DTaP/Tdap/Td vaccine (2 - Td or Tdap) [facility] Start: 12-01-2019 DTaP/Tdap/Td vaccine (2 - Td) DTaP/Tdap/Td vaccine (2 - Td) [place] Start: 10-13-2019 Influenza vaccination [place] Start: 06-25-2019 End: 06-25-2019 Routine 06/25/2019 Routine Obstetrics and Gynecology Rj Aguilar DO [address] [place] [address] [phone] [facility] Start: 05-05-2019 End: 05-05-2019 Routine 05/05/2019 Routine Obstetrics and Gynecology Rj Aguilar DO [address] [place] [address] [phone] [facility] Start: 10-12-2018 Influenza vaccination Flu vaccine (# 1) [place] Start: 05-07-2016 Cervical cancer screen Cervical canc er screen [place], [place] Start: 10-20-2008 Screening for malign ant neoplasm of cervix Pap Smear [facility] Start: 10-20-2006 DTaP,Tdap and Td Vaccines (1 - Tdap) DTaP,Tdap and Td Vaccines (1 - Tdap) [facility] Start: 10-20-2005 Adult BMI Screening Adult BMI Screen ing [facility] Start: 10-20-2000 Varicella Vaccine (1 of 2 - 13+ 2-dose series) Varicella Vaccine (1 of 2 - 13+ 2-dose series) [place], [place] Start: 1999 COVID-19 Vaccine (1) COVID-19 Vaccin e (1) [facility] [employer] Phone: Start: 1999 [facility] Start: 1999 Depression Screening Depression Scre ening [facility] Start: 1999 Tobacco Screening Tobacco Screening [facility] Start: 10-20-1993 Pneumococcal 0-64 ye ars Vaccine (1 - PCV) Pneumococcal 0-64 years Vaccine (1 - PCV) [facility] Start: 10-20-1993 Pneumococcal 0-64 ye ars Vaccine (1 of 1 - PPSV23) Pneumococcal 0-64 years Vaccine (1 of 1 - PPSV23) [place] Start: 10-20-1993 Pneumococcal 0-64 ye ars Vaccine (1 of 2 - PPSV23) Pneumococcal 0-64 years Vaccine (1 of 2 - PPSV23) [facility] [employer] Phone: Start: 10-20-1992 COVID-19 Vaccine (1) COVID-19 Vaccin e (1) [facility] Start: 10-20-1988 Varicella vaccine (1 of 2 - 2-dose childhood series) Varicella vaccine (1 of 2 - 2-dose childhood series) [employer] Start: 04-19-1988 COVID-19 Vaccine (#1) COVID-19 Vacci ne (#1) [employer] Start: 1987 Tobacco Counseling Tobacco Counselin [facility] End: 08-21-2021 CT ABDOMEN PELVIS W IV CONTRAST Additional Contrast? None CT ABDOMEN PELVIS W IV CONTRAST Additional Contrast? None Imaging Routine Once for 1 Occurrences starting 08/21/2021 until 08/21/2021 [employer] Phone: Comment on above: Once for 1 Occurrenc es starting 08/21/2021 until 08/21/2021 CT ABDOMEN PELVIS W IV CONTRAST Additional Contrast? None CT ABDOMEN PELVIS W IV CONTRAST Additional Contrast? None Imaging STAT 08/21/2021 2:34 AM EDT [employer] Phone: End: 10-28-2021 Culture, Anaerobic and Aerobic Culture, Anaerobic and Aerobic Microbiology Routine One Time for 1 Occurrences starting 10/28/2021 until 10/28/2021 [employer] Phone: Comment on above: One Time for 1 Occur rences starting 10/28/2021 until 10/28/2021 End: 04-11-2022 Culture, Throat [employer] Phone: Comment on above: 1 Occurrences starti ng 04/11/2022 until 04/11/2022 End: 08-12-2020 Holter Monitor 48 Hour Holter Monitor 48 Hour Cardiac Services Routine Heart palpitations 1 Occurrences starting 08/12/2020 until 08/12/2020 [employer] Phone: Comment on above: 1 Occurrences starti ng 08/12/2020 until 08/12/2020 Oxygen therapy [[facility] Data [facility]] [facility] Comment on above: Daily until disconti nued starting 11/02/2019 Daily until disconti nued starting 02/29/2020 Phase I & II - meter ed glucose Phase I & II - metered glucose Point of Care Testing Routine As Needed until discontinued starting 02/29/2020 [place] Comment on above: As Needed until disc ontinued starting 02/29/2020 End: 11-02-2019 RHOGAM INJECTION ONLY RHOGAM INJECTION ONLY Blood Bank Routine One Time for 1 Occurrences starting 11/02/2019 until 11/02/2019 [place], [place] Comment on above: One Time for 1 Occur rences starting 11/02/2019 until 11/02/2019 Spirometry panel Incentive jayleen metry Respiratory Care Routine Every 2hr while awake until discontinued starting 11/02/2019 [place] Comment on above: Every 2hr while awak e until discontinued starting 11/02/2019 Surgical Pathology Surgical Path ology Lab Routine Release Upon Ordering for 1 Occurrences starting 02/29/2020 [place] Comment on above: Release Upon Orderin g for 1 Occurrences starting 02/29/2020 End: 04-14-2019 US OB Transvaginal US OB Transvaginal Imaging Routine Amenorrhea 1 Occurrences starting 04/14/2019 until 04/14/2019 [place] Comment on above: 1 Occurrences starti ng 04/14/2019 until 04/14/2019 US OB Transvaginal US OB Transva ginal Imaging Routine Amenorrhea 04/14/2019 2:44 PM EST [place], [place] Immunizations Immunization Date Immunization Notes Care Provider Nata storey 12-16-2021 tetanus toxoid, redu jameson diphtheria toxoid, and acellular pertussis vaccine, adsorbed Sulema Teran DO Work Phone: [facility] 11-02-2019 diphtheria, tetanus toxoids and acellular pertussis vaccine, unspecified formulation Rj Aguilar [place] 01-22-2017 tetanus toxoid, redu jameson diphtheria toxoid, and acellular pertussis vaccine, adsorbed Jose F ANN [facility] Comment on above: Reason for Medicatio n: Other (see comment) 11-30-2009 tetanus toxoid, redu jameson diphtheria toxoid, and acellular pertussis vaccine, adsorbed Tip Antunez [facility] 10-04-2000 measles, mumps and rubella virus vaccine Rebecca Gonzalez DO [facility] Work Phone: Payers Date Payer Category Payer Medicaid [employer] [facility] O [id number] 2023-Present [phone] [address] [place] [address] [id number] 2021 Unknown , [id number] 2017 Unknown [id number] 2016 Unknown [facility] MEDICAID xxxxxxxxxxx 2016-Present [phone] CLAIMS DEPARTMENT [address] [place] [address] xxxxxxxxxxx [id number] 2016 Unknown [id number]. [id number] 1987 Unknown [id number] [id number] 1987 Unknown [id number] [id number] 1987 Unknown [id number] [id number] 1987 Unknown [id number] [id number] 1987 Unknown [id number] [id number] 1987 Unknown [id number] [id number] 1987 Unknown [id number] 2.16.840.1.907966.3.579.2.727 1987 Unknown [id number] 2.16.840.1.151004.3.579.2.727 1987 Unknown [id number] 2.16.840.1.194074.3.579.2.727 1987 Unknown [id number] 2.16.840.1.166000.3.579.2.1286 1987 Unknown [id number] [id number] 1987 Unknown [id number] 2.16.840.1.704138.3.579.2.1259 1987 Unknown [id number] [id number] 1987 Unknown [id number] 1987 Unknown [id number] Social History Date Type Detail Facility Start: 09-30-2018 End: 03-18-2023 Tobacco smoking status NHIS Current every day smoker [facility]AKUL [facility] History of tobacco use Cigarette Smoker [place] Start: 09-30-2018 End: 03-18-2023 Cigarettes smoked current (pack per day) - Reported [place], [place] Start: 09-30-2018 End: 03-18-2023 Alcohol intake No [facility] Start: 1987 Sex Assigned At Not on file [place] Start: 04-07-2019 End: 04-11-2022 Alcohol intake Current non-drinker of alcohol (finding) [place], [place] Start: 02-19-2019 [place], [place] Exposure to SARS-CoV -2 (event) Unable to assess [place] Start: 11-03-2019 End: 08-29-2021 Tobacco use and exposure Never used [place] Start: 08-11-2021 End: 04-11-2022 Exposure to SARS-CoV-2 (event) Not sure [place] Start: 08-04-2020 End: 04-09-2022 History 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 [employer] Phone: Start: 08-04-2020 End: 04-09-2022 History 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 [employer] Phone: Start: 1987 Sex Assigned At Female [facility] Start: 10-18-2021 End: 12-16-2021 Exposure to SARS-CoV-2 (event) Yes [facility] [employer] Start: 04-09-2022 History SDOH Transpo rt Non-Med 2 [employer] Phone: Start: 10-13-2017 Tobacco smoking status Heavy t obacco smoker (finding) [facility] Medical Equipment Procedure Code Equipment Code Equipment Origin al Text Equipment Identifier Dates fluorescein ophthalmic strip 1 mg [id number] Start: 09-30-2018 End: 09-30-2018 Clinical Notes 08-21-2021 to 01-11-2023 InstructionsAttachments Note Date & Type Note Facility 01-11-2023 Evaluation + Plan note Diagnostic Tests PendingHIV Screen 4th Generation wRfx 01/11/23Hepatitis B Surface Antigen 01/11/23RPR with Conf Rfx 01/11/23Rubella Antibody IgG 01/11/23HCV Antibody RFX to Quant PCR 01/11/23Urine Culture 01/11/23 [facility] 08-21-2021 Hospital Discharg e instructions Penny Ritter MD - 08/21/2021 Return to the Emergency Department immediately if you develop worsening symptoms, or you have any other concerns. Please follow up with your family doctor in 1-2 days. The following attachments cannot be sent through Care Everywhere.Gastritis (Ghanaian)documented in this encounter [employer] Phone: Evaluation note Diagnosis Heart palpitations Palpitations documented in this encounter [employer] Phone: evaluation note* Diagnosis Dental abscess- Primary Periapical abscess without sinus documented in this encounter [employer] Phone: evaluation note* Diagnosis Acute gastritis without hemorrhage, unspecified gastritis type- Primary documented in this encounter [facility] [employer] Phone: evaluation note* Diagnosis Cellulitis of trunk, unspecified site of trunk- Primary documented in this encounter [facility] [employer] Phone: evalaypvik note* Diagnosis Bitten by mouse, initial encounter- Primary documented in this encounter [facility] [employer] Phone: evaluation note* Diagnosis Tonsillitis with exudate Acute tonsillitis documented in this encounter [facility] [employer] Phone: Hospital course Narrative No data available for this section [facility] Attachments The following attachments cannot be sent through Care Everywhere. * Tooth: Abscessed (Gh[place]ian) [facility] Dis[facility]* Attachments The following attachments cannot be sent through Care Everywhere. * Cellulitis (Ghanaian) [facility] [employer] [facility]: Hospital Discharge instructions* Attachments The following attachments cannot be sent through Care Everywhere. 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 Advance Directives and Living Will Power of Caddie Documents on File Type Date Recorded 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 Advance Directives and Living Will Power of Caddie Documents on File Type Date Recorded 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 ACP-Advance Directive ACP-Power of Caddie Latest Code Status on File Code Status Date Activated Date Inactivated Comments Full Code 11/02/2019 12:26 PM Full Code 11/02/2019 7:35 AM 11/02/2019 12:26 PM Latest Code Status on File Code Status Date Activated Date Inactivated Comments Full Code 11/02/2019 12:26 PM 11/04/2019 3:22 PM Documents on File Type Date Recorded 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 ACP-Advance Directive ACP-Power of Caddie Latest Code Status on File Code Status [...] (ROMANIAN) * Coronavirus Disease (COVID-19): General Info (Ghanaian) documented in this encounter Assessments Diagnosis Pain [...] Rj Aguilar, DO [address] [place] [address] Status Reason Specialty Diagnoses / Procedures Referre d By Contact Referred To Contact [facility] Diagnoses Amenorrhea Procedures US OB Transvaginal Rj Aguilar, DO [address] [place] [address] Status Reason Specialty Diagnoses / Procedures Referre d By Contact Referred To Contact [facility] Diagnoses Amenorrhea Procedures US OB TRANSVAGINAL Rj Aguilar, DO [address] [place] [address] Status Reason Specialty Diagnoses / Procedures Referred By Contact Referred To Contact Not Required - [facility] Diagnoses Amenorrhea Procedures US OB 14 Plus Weeks Single or First Gestation HC US OB GREATER THAN 14 WEEKS SINGLE FETUS Rj Aguilar, DO [address] [place] [address] Status Reason Specialty Diagnoses / Procedures Referre d By Contact Referred To Contact Closed Diagnoses Heart palpitations Procedures Holter Monitor 48 Hour Nikki Mcgovern PA-C [address] [place] [address] History of Present Illness * Rj Aguilar, [...] 50 mL IVPB (duplex), 2 g, Intravenous, Branch Account Manager to OR, Rj Diaz DO meperidine [...] Once PRN, Junior Fuentes MD 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 Past Surgical History: Past Surgical History: Procedure Laterality Date SECTION 2013 SECTION N/A 11/02/2019 SECTION performed by Rj Aguilar DO at [facility] [place] OR COLONOSCOPY 09/03/14 w/bx Social History: [...] section and content) DATE CREATED AUTHOR 08/21/2017 [employer] DATE CREATED AUTHOR AUTHOR'S ORGANIZ ATION 10/01/2018 [facility] DATE CREATED AUTHOR AUTHOR'S ORGANIZ ATION 09/01/2021 [facility] Center DATE CREATED AUTHOR AUTHOR'S ORGANIZ ATION [facility]2021 [facility] DATE CREATED AUTHOR AUTHOR'S ORGANIZ ATION 07/31/2022 [facility] DATE CREATED AUTHOR AUTHOR'S ORGANIZ ATION 01/31/2023 [employer] [facility] ical [facility] DATE CREATED AUTHOR AUTHOR'S ORGANIZ ATION 03/25/2023 [facility] DATE CREATED AUTHOR AUTHOR'S ORGANIZ ATION 04/02/2023 [facility] EPIC Reason for [...] Rj Aguilar DO [address] [place] [address] Status Reason Specialty Diagnoses / Procedures Referred By Contact Referred To Contact Not Required - [facility] Diagnoses Amenorrhea Procedures US OB 14 Plus Weeks Single or First Gestation HC US OB GREATER THAN 14 WEEKS SINGLE FETUS Rj Aguilar, DO [address] [place] [address] Reason Comments Other Scheduled C/S Status Reason Specialty Diagnoses / Procedures Referre d By Contact Referred To Contact Diagnoses Status post repeat low transverse section repeat Procedures TN DELIVERY ONLY SECTION Rj Aguilar, DO [address] [place] [address] [facility] Status Reason Specialty Diagnoses / Procedures Re ferred By Contact Referred To Contact Diagnoses HGSIL Pap smear of anus HGSIL Procedures TN COLPOSCOPY,ENTIRE VAGINA LOOP ELECTROSURGICAL EXCISION PROCEDURE COLPOSCOPY, ECC (PAT ON ADMIT) RAPID COVID Rj Aguilar, DO [address] [place] [address] [facility] Status Reason Specialty Diagnoses / Procedures Referre d By Contact Referred To Contact Closed Diagnoses Heart palpitations Procedures Holter Monitor 48 Hour Nikki Mcgovern PA-C [address] [place] [address] Reason Comments Dental Pain right upper gum [...] 28 capsule 0 10/28/2021 11/04/2021 nystatin (MYCOSTATIN) [id number] UNIT/GM powder Apply topically 2 times daily [...] Care Teams (unrecognized sec tion and content) [employer] Relationship Specialty Start Date End Date Nikki Mcgovern PA-C PCP - General 03/29/15 [employer] Relationship Specialty Start Date End Date Nikki Mcgovern PA-C PCP General 03/29/15 [employer] Relationship Specialty Start Date End Date Nikki Mcgovern PA-C [facility] 03/29/15 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 [facility] [employer], [facility]. provides no warranty or guarantee of the accuracy or completeness of information in this document."
== END 2023-03-20 12:07 | disposition home or self-care (01) ==
LOC: US 07:07 → FBC 10:40
PROVIDERS: Visit Provider Obstetrics & Gynecology
DX: O26.843 Uterine size-date discrepancy, third trimester (principal); O09.523 Supervision of elderly multigravida, third trimester; Z3A.33 33 weeks gestation of pregnancy
CPT/HCPCS: 76816; 76818

== ENCOUNTER 2023-04-09 20:50 | Outpatient (REF) | payer OTHER, SELFPAY ==
--- OUTSIDE RECORDS SUMMARY | 2023-04-09 21:00 | XMS_ITS | CCD ---
Author Name Unknown Address [address] [place] [address] Organization [facility] Care Team Providers Care Religion Professor Name Role Phone Nikki Mcgovern Primary Care [...] Drug Allergy 2 Nausea And Vomiting, Headache [facility] [employer] Phone: (4 sources) traMADol; Translations: [TRAMADOL] Drug Allergy 2 [facility] [employer] Phone: (1 source) No Known Medication Allergies; Translations: [No Known Medication Allergies] Propensity to adverse reactions (disorder) [facility] Repository Medications Current Medications Medication Drug [...] Pain - Moderate, 30 tab(s), Refill(s) 0, [facility] Start Date: 01/22/17 Status: Ordered [...] BID, # 60 cap(s), Refills(s) 0, Pharmacy: [facility] Start Date: 01/22/17 Status: Ordered Ethinyl Estradiol [...] Refill(s) 5, Start 3 weeks after delivery, [facility] Start Date: 01/22/17 [...] Mild, # 40 tab(s), Refills(s) 0, Pharmacy: [facility] Start Date: 01/22/17 [...] sources) Polyene Antifungal Start: 10-28-2021 nystatin (MYCOSTATIN) 665573 UNIT/GM powder Apply topically 2 times daily [...] Give after delivery of placenta. Prenat w/o R-NgWsm-ZKW-FA-DHA (PRENAISSANCE PLUS) 28-1-250 MG CAPS (4 sources) Start: 06-03-2019 take 1 tablet by mouth once daily Prenat w/o E-JaKht-VYY-FA-DHA (PRENAISSANCE PLUS) 28-1-250 MG CAPS Take 1 tablet by mouth daily 30 capsule 06/03/2019 Suspended Start: 06-03-2019 take 1 tablet by mario th once daily Prenat w/o V-YnEkx-SWK-FA-DHA (PRENAISSANCE PLUS) 28-1-250 MG CAPS Take 1 [...] tablet 3 04/09/2017 09/30/2018 Discontinued (LIST CLEANUP) Fh-[id number]-DF-Erdeag (PRENATE AM PO) (1 source) End: 09-30-2018 Yj-[id number]-RE-Oljdpr (PRENATE AM PO) Take by mouth 0 09/30/2018 Discontinued (LIST CLEANUP) Multivitamins with Folic Acid 1 mg oral tablet (3 sources) Start: 07-26-2016 Multivitamins with Folic Acid 1 mg oral tablet 1 tab(s), Oral, Daily, 100 tab(s), Refill(s) 0, [facility] Start Date: 07/26/16 [...] Location Anterior Positioning Vertex Amniotic Fluid Volume OLRI (cm) 14.94 Normal Measurements BPD (cm) 6.60 HC (cm) 24.35 AC (cm) 22.80 FL (cm) 4.82 EFW (g) 974 Anatomy Brain Normal Heart Normal Kidneys. Normal Stomach Normal Bladder Normal 3VC Normal Spine Normal Extremities Normal Diaphragm Normal ACI Normal Normal [facility] CHEMISTRYOrdered By: SYSTEM SYSTEM on 01-29-2023 Glucose [Mass/Vol] 157 mg/dL High 55 - 140 mg/dL Remisol Chem Consent for Treatmenton 01-11 Consent for Treatment [id number] .00TIFF Normal [facility] Consent for Treatment [id number] .00TIFF Normal [facility] Gest Scr Glu 1 Hron 01-30-20 23 Glucose [Mass/Vol] 157 mg/dL High 55-140 [facility] Comment on above: Performed By: #### 2 [id number], 08605024, 696992140, 9823712719, 172728764, 067700392, 1245315, 9315039, 9239483 #### [facility] [address] [place] [address] Glucose 1h post 50g loadon 04-01-2022 Glucose, 1 hr PP 50GM dose 157 [employer] [facility] Physician Orderon 01-29-2023 Physician Order [id number]# 1.00TIFF Normal [facility] Physician Orderon 01-28-2023 Physician Order [id number]#1 .00TIFF Normal [facility] C Urineon 01-13-2023 Bacteria identified Cx [...] Locations R1: This test was performed at: [facility], [address] [place] [address], [address] , , [facility] Comment on above: Performed By: #### 2 [id number], 72915730, 374894069, 7369111650, 236067872, 917950320, 0065869, 6480426, 1230661 #### [facility] [address] [place] [address] .Interpretation:on HCV Ab IA Ql Comment Invalid Interpretation Code [facility] Comment on above: Result Comment: Not infected with HCV unless early or acute infection is suspected (which may be delayed in an immunocompromised individual), or other evidence exists to indicate HCV infection. Performed at: [facility] [id number] [place], [place] [id number] PhD Mariama Zaman Performed By: #### 2 [id number], 47490542, 958325754, 8656241400, 191779559, 577157793, 5234342, 6849786, 9649258 #### [facility] [address] [place] [address] HCV Antibody RFX to Quant PC Johnny 01-12-2023 HCV IgG IA Ql Non-Reactive Invalid Interpretation Code Non Reactive [facility] Comment on above: Result Comment: Perf ormed at: [address] [id number] PhD Mariama Zaman Performed By: #### 2 [id number], 04353483, 294497100, 2442451600, 063260200, 097958816, 8336779, 0827295, 9850703 #### [facility] [address] [place] [address] HIV Screen 4th Generation wR fxon 01-12-2023 HIV 1+2 Ab+HIV1 p24 Ag IA Ql Non-Reactive Invalid Interpretation Code Non Reactive [facility] Comment on above: Result Comment: HIV Negative HIV-1/HIV-2 antibodies and HIV-1 p24 antigen were NOT detected. There is no laboratory evidence of HIV infection. Performed at: [address] [id number] PhD Mariama Zaman Performed By: #### 2 [id number], 21502335, 897997039, 5565183936, 816419311, 344660547, 5363274, 0456245, 8067384 #### [facility] [address] [place] [address] Hep Bs Agon 01-12-2023 HBV surface Ag IA Ql Negative Invalid Interpretation Code Negative [facility] Comment on above: Result Comment: Perf ormed at: [address] [id number] PhD Mariama Zaman Performed By: #### 2 [id number], 49130179, 688582340, 6051915724, 453666774, 950114711, 6493616, 8558360, 9233036 #### [facility] [address] [place] [address] RPR with Conf Rfxon 01-13-20 23 Reagin Ab RPR Ql (S) Non-Reactive Invalid Interpretation Code Non Reactive [facility] Comment on above: Result Comment: Perf ormed at: [address] [id number] PhD Mariama Zaman Performed By: #### 2 [id number], 37053984, 939548453, 8927479517, 342663846, 686013087, 5128264, 2417878, 0199099 #### [facility] [address] [place] [address] Rubella IgGon 01-12-2023 Rubella virus IgG Qn (S) 5.68 [IU]/mL Invalid Interpretation Code Immune >0.99 [facility] Comment on above: Result Comment: Non- immune <0.90 Equivocal 0.90 - 0.99 Immune >0.99 Performed at: [address] [id number] PhD Mariama Zaman Performed By: #### 2 [id number], 16408870, 795502654, 7078874293, 268055979, 661010216, 3368959, 6129550, 9378391 #### [facility] [address] [place] [address] ABO/Rhon 01-11-2023 ABO/Rh Positive Invalid Interpretation Code [facility] Comment on above: Performed By: #### 2 [id number], 90369306, 969056490, 5244173946, 281001031, 812189635, 2332846, 6517678, 2846593 #### [facility] [address] [place] [address] ABSCon 01-11-2023 ABSC Gel Interp Negative Normal [facility] Comment on above: Performed By: #### 2 296992430, 13388073, 691495379, 9452740378, 153460513, 459217737, 5917307, 9168695, 5329837 #### [facility] [address] [place] [address] BLOOD BANKOrdered By: Dylan Lemons on 01-11-2023 ABO/Rh Interp Positive Invalid Interpretation Code FT BB Subsection ABSC Gel Interp Negative (01/11/23 10:00 AM) Normal [facility] BB Subsection CBC w/IndicesOrdered By: López Jorgensen on 01-11-2023 Erythrocyte distribution width (RBC) [Ratio] 13.4 % Normal 10.9-14.2 [facility] [employer] Comment on above: Performed By: #### 2 [id number], 97958140, 149643286, 2495884050, 363456169, 358944079, 3634111, 3137292, 1103882 #### [facility] [address] [place] [address] Hematocrit (Bld) [Volume fraction] 34.4 % [facility] [employer] Comment on above: Performed By: #### 2 [id number], 41774045, 325052005, 0141377579, 982259203, 940833421, 3015349, 5368925, 0876562 #### [facility] [address] [place] [address] Hemoglobin (Bld) [Mass/Vol] 11.7 g/dL [facility] [employer] Comment on above: Performed By: #### 2 367239805, 55492008, 085018579, 3716589155, 514711393, 153783726, 4976180, 7985683, 6013687 #### [facility] [address] [place] [address] MCH (RBC) [Entitic mass] 31.7 pg Normal 27.0-34.0 [facility] [employer] Comment on above: Performed By: #### 2 552952237, 58595218, 369895789, 3503489122, 758293801, 179529081, 3159238, 7940459, 6912453 #### [facility] [address] [place] [address] MCHC (RBC) [Mass/Vol] 33.9 g/dL Normal 31.4-36.0 [facility] [employer] Comment on above: Performed By: #### 2 757486254, 67116164, 940516558, 2508954808, 806416268, 875581717, 1812272, 6884871, 1392444 #### [facility] [address] [place] [address] MCV (RBC) [Entitic vol] 93.3 fL Normal 80.0-100.0 FT [employer] Comment on above: Performed By: #### 2 375357518, 20309668, 532863673, 2900459669, 320388482, 117588408, 6485730, 0509699, 7012569 #### [facility] [address] [place] [address] Platelet mean volume (Bld) [Entitic vol] 8.0 fL Normal 6.4-10.8 [facility] [employer] Comment on above: Performed By: #### 2 777380499, 59309762, 850442062, 8911024244, 677097793, 768234843, 9637991, 2133961, 6662092 #### [facility] [address] [place] [address] Platelets (Bld) [#/Vol] 171.0 E9/L Normal 150.0-500.0 FT [employer] Comment on above: Performed By: #### 2 418653431, 54121326, 093693721, 0383510818, 574020168, 059754173, 7469560, 0768031, 6546396 #### [facility] [address] [place] [address] RBC (Bld) [#/Vol] 3.7 E12/L Low 4.3-5.9 FT [employer] Comment on above: Performed By: #### 2 372755879, 09667688, 345954806, 4585530961, 936565389, 549540596, 4004345, 7112639, 4245397 #### [facility] [address] [place] [address] WBC corrected for nucl RBC Auto (Bld) [#/Vol] 11.7 E9/L High 4.0-11.0 FT [employer] Comment on above: Performed By: #### 2 985864005, 63642402, 556221366, 5406942654, 999651679, 876913668, 4356947, 5305684, 9677929 #### [facility] [address] [place] [address] CBC without diffon Platelets (Bld) [#/Vol] 171 10*3/uL [facility] Consent for Treatmenton Consent for Treatment [id number] .00TIFF Normal [facility] HIV 1&2 AB/AG Screen (P24 AG )on 01-11-2023 HIV 1&2 AB/AG Non-Reactive [facility] Hepatitis B surface antigeno n 01-11-2023 Hepatitis B Surface Antigen Negative [facility] Hepatitis C(HCV) Ab w/ Refle x to PCRon 01-11-2023 HCV Ab Ql (S) Non-Reactive [facility] [id number] By: Liliana Dumont on 01-11-2023 HbA1c (Bld) [Mass fraction] 4.9 % Normal <=5.9 [facility] [employer] Comment on above: Performed By: #### 2 [id number], 00079848, 750196078, 7869042261, 181619344, 749260529, 1892726, 4835635, 1469047 #### [facility] [address] [place] [address] No Panel Informationon 01-11 [facility] Physician Orderon 01-11-2023 Physician Order [id number] .00TIFF Normal [facility] Rubella IGG immune statuson 01-11-2023 Rubella immune IgG 5.68 [facility] Syphilis Total(Unknown Syphi lis Status)on 01-11-2023 Syphilis Non-Reactive [facility] TSHon 01-11-2023 Thyroid Stimulating (3Rd Generation) Hormone/ Tsh 1.30 [facility] TSHOrdered By: SYSTEM SYSTEM on 01-11-2023 TSH Qn 1.30 m[IU]/L Normal 0.34-5.60 [facility] Remisol Comment on above: Performed By: #### 2 [id number], 70215564, 602465972, 7526821228, 201040597, 793340933, 6797014, 7146955, 6123165 #### [facility] [address] [place] [id number] Type and screenon 01-11-2023 Abo/Rh(D) Positive [employer] [facility] Basic Metabolic Panelon 07-13 Calcium [Mass/Vol] 9.1 mg/dL Normal 8.5-9.9 [facility] Comment on above: Performed By: #### C BCWD #### [facility] [address] [place] [address] Chloride [Moles/Vol] 105 mmol/L Normal 95-107 [facility] Comment on above: Performed By: #### C BCWD #### [facility] [address] [place] [address] CO2 [Moles/Vol] 22 mmol/L Normal 20-31 [facility] Comment on above: Performed By: #### C BCWD #### [facility] [address] [place] [address] Creatinine [Mass/Vol] 0.59 mg/dL Normal 0.50-0.90 [facility] Comment on above: Performed By: #### C BCWD #### [facility] [address] [place] [address] GFR >60.0 Normal >60 [facility] Comment on above: Result Comment: Pedi [...] secretion. Performed By: #### C BCWD #### [facility] [address] [place] [address] Glucose [Mass/Vol] 110 mg/dL Critically high 70-99 M [facility] Comment on above: Performed By: #### C BCWD #### [facility] [address] [place] [address] Potassium [Moles/Vol] 4.0 mmol/L Normal 3.4-4.9 [facility] Comment on above: Performed By: #### C BCWD #### [facility] [address] [place] [address] Sodium [Moles/Vol] 139 mmol/L Normal 135-144 [facility] Comment on above: Performed By: #### C BCWD #### [facility] [address] [place] [address] Urea nitrogen [Mass/Vol] 12 mg/dL Normal 6-20 [facility] Comment on above: Performed By: #### C BCWD #### [facility] [address] [place] [address] Anion gap [Moles/Vol] 12 mmol/L Normal 9-15 [facility] Comment on above: Performed By: #### C BCWD #### [facility] [address] [place] [address] CBC With Platelet and Differ entialon 07-31-2022 Abs Imm Granulocytes 0.0 K/uL Normal [facility] Comment on above: Performed By: #### C BCWD #### [facility] [address] [place] [address] Basophils (Bld) [#/Vol] 0.0 10*3/uL Normal 0.0-0.1 [facility] Comment on above: Performed By: #### C BCWD #### [facility] [address] [place] [address] Basophils/100 WBC (Bld) 0.4 % Normal 0.1-1.2 [facility] Comment on above: Performed By: #### C BCWD #### [facility] [address] [place] [address] Eosinophils (Bld) [#/Vol] 0.2 10*3/uL Normal 0.0-0.4 [facility] Comment on above: Performed By: #### C BCWD #### [facility] [address] [place] [address] Eosinophils/100 WBC (Bld) 2.6 % Normal 0.7-5.8 [facility] Comment on above: Performed By: #### C BCWD #### [facility] [address] [place] [address] Erythrocyte distribution width (RBC) [Ratio] 12.6 % Normal 11.7-14.4 [facility] Comment on above: Performed By: #### C BCWD #### [facility] [address] [place] [address] Hematocrit (Bld) [Volume fraction] 39.6 % Normal 37.0-47.0 [facility] Comment on above: Performed By: #### C BCWD #### [facility] [address] [place] [address] Hemoglobin (Bld) [Mass/Vol] 13.5 g/dL Normal 11.2-15.7 [facility] Comment on above: Performed By: #### C BCWD #### [facility] [address] [place] [address] Imm Granulocytes 0.3 % Normal [facility] Comment on above: Performed By: #### C BCWD #### [facility] [address] [place] [address] Lymphocytes (Bld) [#/Vol] 1.8 10*3/uL Normal 1.2-3.7 [facility] Comment on above: Performed By: #### C BCWD #### [facility] [address] [place] [address] Lymphocytes/100 WBC (Bld) 25.0 % Normal [facility] Comment on above: Performed By: #### C BCWD #### [facility] [address] [place] [address] MCH (RBC) [Entitic mass] 31.9 pg Normal 25.6-32.2 [facility] Comment on above: Performed By: #### C BCWD #### [facility] [address] [place] [address] MCHC 34.1 % Normal 32.2-35.5 [facility] Comment on above: Performed By: #### C BCWD #### [facility] [address] [place] [address] MCV (RBC) [Entitic vol] 93.6 fL Normal 79.4-94.8 [facility] Comment on above: Performed By: #### C BCWD #### [facility] [address] [place] [address] Monocytes (Bld) [#/Vol] 0.4 10*3/uL Normal 0.2-0.9 [facility] Comment on above: Performed By: #### C BCWD #### [facility] [address] [place] [address] Monocytes/100 WBC (Bld) 5.7 % Normal 4.7-12.5 [facility] Comment on above: Performed By: #### C BCWD #### [facility] [address] [place] [address] Neutrophils (Bld) [#/Vol] 4.9 10*3/uL Normal 1.6-6.1 [facility] Comment on above: Performed By: #### C BCWD #### [facility] [address] [place] [address] Neutrophils/100 WBC (Bld) 66.0 % Normal 34.0-71.1 [facility] Comment on above: Performed By: #### C BCWD #### [facility] [address] [place] [address] Platelets (Bld) [#/Vol] 193 10*3/uL Normal 182-369 [facility] Comment on above: Performed By: #### C BCWD #### [facility] [address] [place] [address] RBC (Bld) [#/Vol] 4.23 10*6/uL Normal 3.93-5.22 [facility] Comment on above: Performed By: #### C BCWD #### [facility] [address] [place] [address] WBC (Bld) [#/Vol] 7.4 10*3/uL Normal 4.0-10.0 [facility] Comment on above: Performed By: #### C BCWD #### [facility] [address] [place] [address] UR HCG Qualitativeon 023 Beta HCG ( test) Ql (U) Negative Normal Detects [facility] Comment on above: Performed By: #### C BCWD #### [facility] [address] [place] [address] Urinalysis, reflex to cultur minoo 07-31-2022 Urine Reflexed to Culture Not Indicated Normal [facility] Comment on above: Performed By: #### U AR #### [facility] [address] [place] [address] Bilirubin Ql (U) Negative Normal Negative [facility] Comment on above: Performed By: #### U AR #### [facility] [address] [place] [address] Clarity (U) Clear Normal Clear [facility] Comment on above: Performed By: #### U AR #### [facility] [address] [place] [address] Color (U) Yellow Normal Straw/[place] [facility] Comment on above: Performed By: #### U AR #### [facility] [address] [place] [address] Glucose Ql (U) Negative Normal Negative [facility] Comment on above: Performed By: #### U AR #### [facility] [address] [place] [address] Hemoglobin Ql (U) Large Normal Negative [facility] Comment on above: Performed By: #### U AR #### [facility] [address] [place] [address] Ketones Ql (U) Negative Normal Negative [facility] Comment on above: Performed By: #### U AR #### [facility] [address] [place] [address] Leukocyte esterase Test strip Ql (U) Negative Normal Negative [facility] Comment on above: Performed By: #### U AR #### [facility] [address] [place] [address] Nitrite Ql (U) Negative Normal Negative [facility] Comment on above: Performed By: #### U AR #### [facility] [address] [place] [address] pH (U) 5.5 [pH] Normal 5.0-9.0 [facility] Comment on above: Performed By: #### U AR #### [facility] [address] [place] [address] Protein Ql (U) Negative Normal Negative [facility] Comment on above: Performed By: #### U AR #### [facility] [address] [place] [address] Specific gravity (U) [Rel density] 1.015 Normal 1.005-1.03 [facility] Comment on above: Performed By: #### U AR #### [facility] [address] [place] [address] Urobilinogen Qn (U) 0.2 {Ginger'U}/dL Normal < 2.0 [facility] Comment on above: Performed By: #### U AR #### [facility] [address] [place] [address] Urine Microscopicon 08-01-19 23 Epithelial cells LM Ql (Urine sed) 3-5 Normal [facility] Comment on above: Performed By: #### U KAREEM #### [facility] [address] [place] [address] Urine Bacteria FEW Abnormal Negative [facility] Comment on above: Performed By: #### U KAREEM #### [facility] [address] [place] [address] Urine RBC 5-10 Abnormal 0-2 [facility] Comment on above: Performed By: #### U KAREEM #### [facility] [address] [place] [address] Urine WBC 0-2 Normal 0-5 [facility] Comment on above: Performed By: #### U KAREEM #### [facility] [address] [place] [address] Culture, Throaton 04-11-2022 Culture, Throat ORDER#: [id number] ORDERED BY: LILIANA CARROLL SOURCE: Throat Throat COLLECTED: 04/11/22 17:53 ANTIBIOTICS AT [facility].: RECEIVED : 04/11/22 21:00 Culture, Throat FINAL 04/14/22 10:27 Cult,Throat: Oral to, negative for Group A Strep and other beta Cult,Throat: hemolytic streptococci Performed at [address] [address] ([phone] Normal [facility] Comment on above: Performed By: #### C BCWD #### [facility] [address] [place] [address] XR SHOULDER LEFT (MIN 2 VIEW S)on [...] Vitor Riojas MD 11/29/21 Final result Normal [facility] Bacterial susceptibility hager el by Christin 10-28-2021 Bacterial susceptibility panel KAREEM ([facility]) ORDER#: [id number] ORDERED BY: SPRING OROZCO SOURCE: Incision COLLECTED: 10/28/21 16:45 ANTIBIOTICS AT [facility].: RECEIVED : 10/28/21 22:09 Culture, Wound Aerobic, Anaerobic FINAL 11/03/21 07:50 Direct Exam: NO NEUTROPHILS SEEN Direct Exam: NO BACTERIA SEEN Cult,Aerobe/Anaerobe: Mixed skin to Cult,Aerobe/Anaerobe: No anaerobic organisms isolated at 5 days. Performed at [address] [address] Acinetobacter species LIGHT GROWTH Acinetobacter baumannii LIGHT GROWTH Acineto sp. A. baumannii ANTIBIOTICS KAREEM Interp KAREEM Interp Ampicillin/Sulbactam <=2 S >=32 R Ceftriaxone 16 I 16 I Ciprofloxacin <=0.25 S <=0.25 S Gentamicin <=1 S <=1 S Tobramycin <=1 S <=1 S S=SUSCEPTIBLE I=INTERMEDIATE R=RESISTANT Normal [facility] Comment on above: Performed By: #### 5 0545-3 #### [facility] [address] [place] [id number] Bacterial susceptibility panel KAREEM ([facility]) ORDER#: [id number] ORDERED BY: SPRING OROZCO SOURCE: Incision COLLECTED: 10/28/21 16:45 ANTIBIOTICS AT [facility].: RECEIVED : 10/28/21 22:09 Culture, Wound Aerobic, Anaerobic PRELIM 11/03/21 07:15 Direct Exam: NO NEUTROPHILS SEEN Direct Exam: NO BACTERIA SEEN Cult,Aerobe/Anaerobe: Mixed skin to Cult,Aerobe/Anaerobe: No anaerobic organisms isolated at 5 days. Performed at [facility] [address] [facility], [place] [id number] ([phone] Acinetobacter species LIGHT GROWTH Acineto sp. ANTIBIOTICS KAREEM Interp Ampicillin/Sulbactam <=2 S Ceftriaxone 16 I Ciprofloxacin <=0.25 S Gentamicin <=1 S Tobramycin <=1 S S=SUSCEPTIBLE I=INTERMEDIATE R=RESISTANT Normal [facility] Comment on above: Performed By: #### C BCWD #### [facility] [address] [place] [address] CBC With Platelet and Differ entialon 10-28-2021 Abs Imm Granulocytes 0.0 K/uL Normal [facility] Comment on above: Performed By: #### C BCWD #### [facility] [address] [place] [address] Basophils (Bld) [#/Vol] 0.0 10*3/uL Normal 0.0-0.1 [facility] Comment on above: Performed By: #### C BCWD #### [facility] [address] [place] [address] Basophils/100 WBC (Bld) 0.1 % Normal 0.1-1.2 [facility] Comment on above: Performed By: #### C BCWD #### [facility] [address] [place] [address] Eosinophils (Bld) [#/Vol] 0.3 10*3/uL Normal 0.0-0.4 [facility] Comment on above: Performed By: #### C BCWD #### [facility] [address] [place] [address] Eosinophils/100 WBC (Bld) 3.1 % Normal 0.7-5.8 [facility] Comment on above: Performed By: #### C BCWD #### [facility] [address] [place] [address] Erythrocyte distribution width (RBC) [Ratio] 12.8 % Normal 11.7-14.4 [facility] Comment on above: Performed By: #### C BCWD #### [facility] [address] [place] [address] Hematocrit (Bld) [Volume fraction] 40.9 % Normal 37.0-47.0 [facility] Comment on above: Performed By: #### C BCWD #### [facility] [address] [place] [address] Hemoglobin (Bld) [Mass/Vol] 13.6 g/dL Normal 11.2-15.7 [facility] Comment on above: Performed By: #### C BCWD #### [facility] [address] [place] [address] Imm Granulocytes 0.2 % Normal [facility] Comment on above: Performed By: #### C BCWD #### [facility] [address] [place] [address] Lymphocytes (Bld) [#/Vol] 1.8 10*3/uL Normal 1.2-3.7 [facility] Comment on above: Performed By: #### C BCWD #### [facility] [address] [place] [address] Lymphocytes/100 WBC (Bld) 16.5 % Normal [facility] Comment on above: Performed By: #### C BCWD #### [facility] [address] [place] [address] MCH (RBC) [Entitic mass] 31.1 pg Normal 25.6-32.2 [facility] Comment on above: Performed By: #### C BCWD #### [facility] [address] [place] [address] MCHC 33.3 % Normal 32.2-35.5 [facility] Comment on above: Performed By: #### C BCWD #### [facility] [address] [place] [address] MCV (RBC) [Entitic vol] 93.4 fL Normal 79.4-94.8 [facility] Comment on above: Performed By: #### C BCWD #### [facility] [address] [place] [address] Monocytes (Bld) [#/Vol] 0.6 10*3/uL Normal 0.2-0.9 [facility] Comment on above: Performed By: #### C BCWD #### [facility] [address] [place] [address] Monocytes/100 WBC (Bld) 5.2 % Normal 4.7-12.5 [facility] Comment on above: Performed By: #### C BCWD #### [facility] [address] [place] [address] Neutrophils (Bld) [#/Vol] 7.9 10*3/uL Critically high 1.6-6.1 [facility] Comment on above: Performed By: #### C BCWD #### [facility] [address] [place] [address] Neutrophils/100 WBC (Bld) 74.9 % Critically high 34.0-71.1 [facility] Comment on above: Performed By: #### C BCWD #### [facility] [address] [place] [address] Platelets (Bld) [#/Vol] 192 10*3/uL Normal 182-369 [facility] Comment on above: Performed By: #### C BCWD #### [facility] [address] [place] [address] RBC (Bld) [#/Vol] 4.38 10*6/uL Normal 3.93-5.22 [facility] Comment on above: Performed By: #### C BCWD #### [facility] [address] [place] [address] WBC (Bld) [#/Vol] 10.6 10*3/uL Critically high 4.0-10.0 [facility] Comment on above: Performed By: #### C BCWD #### [facility] [address] [place] [address] CBC with Auto Differentialon 10-28-2021 Basophils (Bld) [#/Vol] 0.0 10*3/uL 0 - 0.1 K/uL [facility] Basophils/100 WBC (Bld) 0.1 % 0.1 - 1.2 % [facility] Eosinophils (Bld) [#/Vol] 0.3 10*3/uL 0 - 0.4 K/uL [facility] Eosinophils/100 WBC (Bld) 3.1 % 0.7 - 5.8 % [facility] Hematocrit (Bld) [Volume fraction] 40.9 % 37 - 47 % [facility] Hemoglobin (Bld) [Mass/Vol] 13.6 g/dL 11.2 - 15.7 g/dL [facility] Immature granulocytes (Bld) [#/Vol] 0.0 10*3/uL [facility] Immature granulocytes/100 WBC (Bld) 0.2 % [facility] Interpretation and review of laboratory results Abnormal [facility] Lymphocytes (Bld) [#/Vol] 1.8 10*3/uL 1.2 - 3.7 K/uL [facility] Lymphocytes/100 WBC (Bld) 16.5 % [facility] MCH (RBC) [Entitic mass] 31.1 pg 25.6 - 32.2 pg [facility] MCHC (RBC) [Mass/Vol] 33.3 % 32.2 - 35.5 % [facility] MCV (RBC) [Entitic vol] 93.4 fL 79.4 - 94.8 fL [facility] Monocytes (Bld) [#/Vol] 0.6 10*3/uL 0.2 - 0.9 K/uL [facility] Monocytes/100 WBC (Bld) 5.2 % 4.7 - 12.5 % [facility] Neutrophils Absolute 7.9 K/uL High 1.6 - 6 .1 K/uL [facility] Neutrophils/100 WBC (Bld) 74.9 % High 34 - 71.1 % [facility] Platelet distribution width (Bld) [Ratio] 12.8 % 11.7 - 14.4 % [facility] Platelets (Bld) [#/Vol] 192 10*3/uL 182 - 369 K/uL [facility] RBC (Bld) [#/Vol] 4.38 10*6/uL [facility] WBC (Bld) [#/Vol] 10.6 10*3/uL High 4 - 10 K/uL [facility] CT ABDOMEN PELVIS W IV CONTR Luc [...] Contrast? Noneon 10-28-2021 No acute abdominopelvic abnormality. [facility] RAD[facility] EXAMINATION: CT OF THE [...] stranding or fluid at the surgical site. [facility] Melodie Ocampo MD - [...] surgical site. IMPRESSION: No acute abdominopelvic abnormality. [facility] observation (narrative) [facility] [employer] Phone: CT ABDOMEN PELVIS W IV CONTR AST Additional Contrast? NoneOrdered By: Melodie Ocampo on 10-28-2021 [facility] [employer] Phone: Comprehensive Metabolic Pane l reflex Mgon 10-28-2021 Albumin [Mass/Vol] 4.4 g/dL Normal 3.5-4.6 [facility] Comment on above: Performed By: #### C MPX #### [facility] [address] [place] [address] ALP [Catalytic activity/Vol] 118 U/L Normal 40-130 [facility] Comment on above: Performed By: #### C MPX #### [facility] [address] [place] [address] ALT [Catalytic activity/Vol] 6 U/L Normal 0-33 [facility] Comment on above: Performed By: #### C MPX #### [facility] [address] [place] [address] Anion gap [Moles/Vol] 11 mmol/L Normal 9-15 [facility] Comment on above: Performed By: #### C MPX #### [facility] [address] [place] [address] AST [Catalytic activity/Vol] 8 U/L Normal 0-35 [facility] Comment on above: Performed By: #### C MPX #### [facility] [address] [place] [address] Bilirubin [Mass/Vol] 0.4 mg/dL Normal 0.2-0.7 [facility] Comment on above: Performed By: #### C MPX #### [facility] [address] [place] [address] Calcium [Mass/Vol] 9.7 mg/dL Normal 8.5-9.9 [facility] Comment on above: Performed By: #### C MPX #### [facility] [address] [place] [address] Chloride [Moles/Vol] 104 mmol/L Normal 95-107 [facility] Comment on above: Performed By: #### C MPX #### [facility] [address] [place] [address] CO2 [Moles/Vol] 23 mmol/L Normal 20-31 [facility] Comment on above: Performed By: #### C MPX #### [facility] [address] [place] [address] Creatinine [Mass/Vol] 0.60 mg/dL Normal 0.50-0.90 [facility] Comment on above: Performed By: #### C MPX #### [facility] [address] [place] [address] GFR >60.0 Normal >60 [facility] Comment on above: Result Comment: >60 mL/min/1.73m2 EGFR, calc. for ages 18 and older using the MDRD formula (not corrected for weight), is valid for stable renal function. Performed By: #### C MPX #### [facility] [address] [place] [address] GFR/1.73 sq M.predicted among blacks MDRD (S/P/Bld) [Vol rate/Area] mL/min/{1.73_m2} Normal >60 [facility] Comment on above: Result Comment: >60 mL/min/1.73m2 EGFR, calc. for ages 18 and older using the MDRD formula (not corrected for weight), is valid for stable renal function. Performed By: #### C MPX #### [facility] [address] [place] [address] Globulin (S) [Mass/Vol] 3.1 g/dL Normal 2.3-3.5 [facility] Comment on above: Performed By: #### C MPX #### [facility] [address] [place] [address] Glucose [Mass/Vol] 95 mg/dL Normal 70-99 [facility] Comment on above: Performed By: #### C MPX #### [facility] [address] [place] [address] Magnesium [Moles/Vol] 4.2 mmol/L Normal 3.4-4.9 [facility] Comment on above: Performed By: #### C MPX #### [facility] [address] [place] [address] Protein [Mass/Vol] 7.5 g/dL Normal 6.3-8.0 [facility] Comment on above: Performed By: #### C MPX #### [facility] [address] [place] [address] Sodium [Moles/Vol] 138 mmol/L Normal 135-144 [facility] Comment on above: Performed By: #### C MPX #### [facility] [address] [place] [address] Urea nitrogen [Mass/Vol] 14 mg/dL Normal 6-20 [facility] Comment on above: Performed By: #### C MPX #### [facility] [address] [place] [address] Comprehensive Metabolic Pane l w/ Reflex to MGon 10-28-2021 Albumin [Mass/Vol] 4.4 g/dL 3.5 - 4.6 g/dL [facility] ALP (Bld) [Catalytic activity/Vol] 118 U/L 40 - 130 U/L [facility] ALT [Catalytic activity/Vol] 6 U/L 0 - 33 U/L [facility] Anion gap [Moles/Vol] 11 mmol/L [facility] AST [Catalytic activity/Vol] 8 U/L 0 - 35 U/L [facility] Bilirubin [Mass/Vol] 0.4 mg/dL 0.2 - 0 .7 mg/dL [facility] Calcium [Mass/Vol] 9.7 mg/dL 8.5 - 9.9 mg/dL [facility] Chloride [Moles/Vol] 104 mmol/L [facility] CO2 [Moles/Vol] 23 mmol/L [facility] Creatinine [Mass/Vol] 0.6 mg/dL 0.5 - 0.9 mg/dL [facility] Free PSA/Total PSA [Mass fraction] 7.5 g/dL 6.3 - 8 g/dL [facility] GFR >60.0 60 - PINF [facility] Comment on above: >60 mL/min/1.73m2 EG FR, calc. for ages 18 and older using the MDRD formula (not corrected for weight), is valid for stable renal function. GFR Non- >60.0 60 - PINF [facility] Comment on above: >60 mL/min/1.73m2 EG FR, calc. for ages 18 and older using the MDRD formula (not corrected for weight), is valid for stable renal function. Globulin (S) [Mass/Vol] 3.1 g/dL 2.3 - 3.5 g/dL [facility] Glucose [Mass/Vol] 95 mg/dL 70 - 99 mg/dL [facility] Potassium reflex Magnesium 4.2 [facility] Sodium [Moles/Vol] 138 mmol/L [facility] Urea nitrogen (BldV) [Mass/Vol] 14 mg/dL 6 - 20 mg/dL [facility] Culture, Wound AerobicShen 10-28-2021 Culture, Wound Aerobic, Anaerobic ORDER#: [id number] ORDERED BY: SPRING OROZCO SOURCE: Incision COLLECTED: 10/28/21 16:45 ANTIBIOTICS AT [facility].: RECEIVED : 10/28/21 22:09 Culture, Wound Aerobic, Anaerobic PRELIM 11/01/21 08:12 Direct Exam: NO NEUTROPHILS SEEN Direct Exam: NO BACTERIA SEEN Cult,Aerobe/Anaerobe: GRAM NEGATIVE RODS Cult,Aerobe/Anaerobe: LIGHT GROWTH Cult,Aerobe/Anaerobe: Mixed skin to Cult,Aerobe/Anaerobe: No anaerobic organisms isolated at 3 days. Performed at [address] [address] Normal [facility] Comment on above: Performed By: #### I CWAN #### [facility] [address] [facility] [id number] , Urineon 2 Beta HCG ( test) Ql (U) Negative Detects HCG level >20 MIU/mL [facility] UR HCG Qualitativeon 022 Beta HCG ( test) Ql (U) Negative Normal Detects HC [facility] Comment on above: Performed By: #### C BCWD #### [facility] [address] [facility] [address] Urinalysis with Reflex to Cu ltureon 10-28-2021 Bilirubin Urine Negative Negative [facility] Blood, Urine Negative Negative [facility] Clarity, UA Clear Clear [facility] Color, UA Yellow Straw/Yellow [facility] Glucose, Ur Negative Negative mg/dL [facility] Ketones Ql (U) Negative Negative mg/dL [facility] Leukocyte esterase Test strip Ql (U) Negative Negative [facility] Nitrite, Urine Negative Negative [facility] pH, UA 5.5 5 - 9 [facility] Protein, UA Negative Negative mg/dL [facility] Specific [place], UA 1.015 1.005 - 1.03 [facility] Urine Reflex to Culture Not Indicated [facility] Urobilinogen, Urine 0.2 NINF [facility] Urinalysis, reflex to cultur minoo 10-28-2021 Bilirubin Ql (U) Negative Normal Negative [facility] Comment on above: Performed By: #### U AR #### [facility] [address] [place] [address] Clarity (U) Clear Normal Clear [facility] Comment on above: Performed By: #### U AR #### [facility] [address] [place] [address] Color (U) Yellow Normal St[place] [facility] Comment on above: Performed By: #### U AR #### [facility] [address] [place] [address] Glucose Ql (U) Negative Normal Negative [facility] Comment on above: Performed By: #### U AR #### [facility] [address] [place] [address] Hemoglobin Ql (U) Negative Normal Negative [facility] Comment on above: Performed By: #### U AR #### [facility] [address] [place] [address] Ketones Ql (U) Negative Normal Negative [facility] Comment on above: Performed By: #### U AR #### [facility] [address] [place] [address] Leukocyte esterase Test strip Ql (U) Negative Normal Negative [facility] Comment on above: Performed By: #### U AR #### [facility] [address] [place] [address] Nitrite Ql (U) Negative Normal Negative [facility] Comment on above: Performed By: #### U AR #### [facility] [address] [place] [address] pH (U) 5.5 [pH] Normal 5.0-9.0 [facility] Comment on above: Performed By: #### U AR #### [facility] [address] [place] [address] Protein Ql (U) Negative Normal Negative [facility] Comment on above: Performed By: #### U AR #### [facility] [address] [place] [id number] Specific gravity (U) [Rel density] 1.015 Normal 1.005-1.03 [facility] Comment on above: Performed By: #### U AR #### [facility] [address] [facility] [address] Urine Reflexed to Culture Not Indicated Normal [facility] Comment on above: Performed By: #### U AR #### [facility] [address] [place] [address] Urobilinogen Qn (U) 0.2 {Ginger'U}/dL Normal < 2.0 [facility] Comment on above: Performed By: #### U AR #### [facility] [address] [facility] [address] Allergen, Food, Comprehensiv e Profile 08-31-2021 Allergen, Food, Barley IgE <0.10 Normal [facility] Allergen, Food, Beef IgE <0.10 [facility] Allergen, Food, Cabbage <0.10 [facility] Allergen, Food, Carrot <0.10 [facility] Allergen, Food, Chicken <0.10 [facility] Allergen, Food, Codfish IgE <0.10 [facility] Allergen, Food, [place] IgE <0.10 Normal [facility] Allergen, Food, Crab IgE <0.10 [facility] Allergen, Food, Egg White <0.10 [facility] Allergen, Food, Grape IgE <0.10 [facility] Allergen, Food, Lettuce IgE <0.10 Normal [facility] Allergen, Food, Milk (Cow) IgE <0.10 Normal [facility] Allergen, Food, [place] <0.10 [facility] Allergen, Food, Oat IgE <0.10 [facility] Allergen, Food, [place] IgE <0.10 Normal [facility] Allergen, Food, Peanut IgE <0.10 [facility] Allergen, Food, Pepper C. annuum IgE <0.10 Normal [facility] Allergen, Food, Pork IgE <0.10 Normal [facility] Comment on above: Result Comment: [facility] [address] [place], [place] [id number] ([phone] Allergen, Food, Potato <0.10 Normal [facility] Allergen, Food, Rice IgE <0.10 Normal [facility] Allergen, Food, [place] IgE <0.10 Normal [facility] Allergen, Food, Shrimp IgE <0.10 Normal [facility] Allergen, Food, Soybean IgE <0.10 Normal [facility] Allergen, Food, Tomato IgE <0.10 Normal [facility] Allergen, Food, Tuna IgE <0.10 Normal [facility] Allergen, Food, Wheat IgE <0.10 Normal [facility] Comment on above: Result Comment: ALLERGEN, [...] even anaphylaxis. Immunoglobulin E 53 IU/mL Normal [facility] Comment on above: Result Comment: [facility] [address] [place], [place] [id number] ([phone] CBC With Platelet and Differ entialon 08-21-2021 Abs Imm Granulocytes 0.0 K/uL Normal [facility] Comment on above: Performed By: #### C BCWD #### [facility] [address] [place] [id number] Basophils (Bld) [#/Vol] 0.0 10*3/uL Normal 0.0-0.1 [facility] Comment on above: Performed By: #### C BCWD #### [facility] [address] [place] [address] Basophils/100 WBC (Bld) 0.3 % Normal 0.1-1.2 [facility] Comment on above: Performed By: #### C BCWD #### [facility] [address] [place] [address] Eosinophils (Bld) [#/Vol] 0.2 10*3/uL Normal 0.0-0.4 [facility] Comment on above: Performed By: #### C BCWD #### [facility] [address] [place] [address] Eosinophils/100 WBC (Bld) 2.4 % Normal 0.7-5.8 [facility] Comment on above: Performed By: #### C BCWD #### [facility] [address] [place] [address] Erythrocyte distribution width (RBC) [Ratio] 12.6 % Normal 11.7-14.4 [facility] Comment on above: Performed By: #### C BCWD #### [facility] [address] [place] [address] Hematocrit (Bld) [Volume fraction] 41.7 % Normal 37.0-47.0 [facility] Comment on above: Performed By: #### C BCWD #### [facility] [address] [place] [address] Hemoglobin (Bld) [Mass/Vol] 13.6 g/dL Normal 11.2-15.7 [facility] Comment on above: Performed By: #### C BCWD #### [facility] [address] [place] [address] Imm Granulocytes 0.3 % Normal [facility] Comment on above: Performed By: #### C BCWD #### [facility] [address] [place] [address] Lymphocytes (Bld) [#/Vol] 2.2 10*3/uL Normal 1.2-3.7 [facility] Comment on above: Performed By: #### C BCWD #### [facility] [address] [place] [address] Lymphocytes/100 WBC (Bld) 25.3 % Normal [facility] Comment on above: Performed By: #### C BCWD #### [facility] [address] [place] [address] MCH (RBC) [Entitic mass] 30.8 pg Normal 25.6-32.2 [facility] Comment on above: Performed By: #### C BCWD #### [facility] [address] [place] [address] MCHC 32.6 % Normal 32.2-35.5 [facility] Comment on above: Performed By: #### C BCWD #### [facility] [address] [place] [address] MCV (RBC) [Entitic vol] 94.6 fL Normal 79.4-94.8 [facility] Comment on above: Performed By: #### C BCWD #### [facility] [address] [place] [address] Monocytes (Bld) [#/Vol] 0.4 10*3/uL Normal 0.2-0.9 [facility] Comment on above: Performed By: #### C BCWD #### [facility] [address] [place] [address] Monocytes/100 WBC (Bld) 4.4 % Low 4.7-12.5 [facility] Comment on above: Performed By: #### C BCWD #### [facility] [address] [place] [address] Neutrophils (Bld) [#/Vol] 5.8 10*3/uL Normal 1.6-6.1 [facility] Comment on above: Performed By: #### C BCWD #### [facility] [address] [place] [address] Neutrophils/100 WBC (Bld) 67.3 % Normal 34.0-71.1 [facility] Comment on above: Performed By: #### C BCWD #### [facility] [address] [place] [id number] Platelets (Bld) [#/Vol] 200 10*3/uL Normal 182-369 [facility] Comment on above: Performed By: #### C BCWD #### [facility] [address] [place] [id number] RBC (Bld) [#/Vol] 4.41 10*6/uL Normal 3.93-5.22 [facility] Comment on above: Performed By: #### C BCWD #### [facility] [address] [place] [id number] WBC (Bld) [#/Vol] 8.6 10*3/uL Normal 4.0-10.0 [facility] Comment on above: Performed By: #### C BCWD #### [facility] [address] [place] [id number] CBC with Auto Differentialon 08-21-2021 Basophils (Bld) [#/Vol] 0.0 10*3/uL 0.0 - 0.1 K/uL [facility] Basophils/100 WBC (Bld) 0.3 % 0.1 - 1.2 % [facility] Eosinophils (Bld) [#/Vol] 0.2 10*3/uL 0.0 - 0.4 K/uL [facility] Eosinophils/100 WBC (Bld) 2.4 % 0.7 - 5.8 % [facility] Hematocrit (Bld) [Volume fraction] 41.7 % 37.0 - 47.0 % [facility] Hemoglobin (Bld) [Mass/Vol] 13.6 g/dL 11.2 - 15.7 g/dL [facility] Immature granulocytes (Bld) [#/Vol] 0.0 10*3/uL [facility] Immature granulocytes/100 WBC (Bld) 0.3 % [facility] Interpretation and review of laboratory results Abnormal [facility] Lymphocytes (Bld) [#/Vol] 2.2 10*3/uL 1.2 - 3.7 K/uL [facility] Lymphocytes/100 WBC (Bld) 25.3 % [facility] MCH (RBC) [Entitic mass] 30.8 pg 25.6 - 32.2 pg [facility] MCHC (RBC) [Mass/Vol] 32.6 % 32.2 - 35.5 % [facility] [facility] MCV (RBC) [Entitic vol] 94.6 fL 79.4 - 94.8 fL [facility] Monocytes (Bld) [#/Vol] 0.4 10*3/uL 0.2 - 0.9 K/uL [facility] Monocytes/100 WBC (Bld) 4.4 % Low 4.7 - 12.5 % [facility] Neutrophils Absolute 5.8 K/uL 1.6 - 6 .1 K/uL [facility] Neutrophils/100 WBC (Bld) 67.3 % 34.0 - 71.1 % [facility] Platelet distribution width (Bld) [Ratio] 12.6 % 11.7 - 14.4 % [facility] Platelets (Bld) [#/Vol] 200 10*3/uL 182 - 369 K/uL [facility] RBC (Bld) [#/Vol] 4.41 10*6/uL [facility] WBC (Bld) [#/Vol] 8.6 10*3/uL 4.0 - 10.0 K/uL [facility] COVID-19on 08-21-2021 SARS-CoV-2 (COVID-19) RNA JOSIE+probe Ql (Unsp spec) Not detected Normal Not Detect [facility] Comment on above: Result Comment: Brittani [...] authorized laboratories. Fact sheet for Healthcare Providers: https://www.fda.gov/media/047115/download Fact sheet for Patients: https://www.fda.gov/media/978138/download METHODOLOGY: Isothermal Nucleic Acid Amplification Performed By: #### C BCWD #### [facility] [address] [place] [id number] COVID-19, Rapidon 08-21-2021 SARS-CoV-2 (COVID-19) RNA JOSIE+probe Ql (Unsp spec) Not detected Not Detected [facility] Comment on above: Rapid NAAT: Negative results [...] authorized laboratories. Fact sheet for Healthcare Providers: https://www.fda.gov/media/188717/download Fact sheet for Patients: https://www.fda.gov/media/143166/download METHODOLOGY: Isothermal Nucleic Acid Amplification [facility] CT ABDOMEN PELVIS W IV CONTR Luc [...] Some of this report was completed using [employer] voice-recognition technology and may include unintended errors [...] above: Performed By: #### C BCWD #### [facility] [address] [place] [address] ALP [Catalytic activity/Vol] 116 U/L Normal 40-130 [facility] Comment on above: Performed By: #### C BCWD #### [facility] [address] [place] [address] ALT [Catalytic activity/Vol] 8 U/L Normal 0-33 [facility] Comment on above: Performed By: #### C BCWD #### [facility] [address] [place] [address] Anion gap [Moles/Vol] 13 mmol/L Normal 9-15 [facility] Comment on above: Performed By: #### C BCWD #### [facility] [address] [place] [address] AST [Catalytic activity/Vol] 10 U/L Normal 0-35 [facility] Comment on above: Performed By: #### C BCWD #### [facility] [address] [place] [address] Bilirubin [Mass/Vol] mg/dL Normal 0.2-0.7 [facility] Comment on above: Performed By: #### C BCWD #### [facility] [address] [place] [address] Calcium [Mass/Vol] 9.3 mg/dL Normal 8.5-9.9 [facility] Comment on above: Performed By: #### C BCWD #### [facility] [address] [place] [address] Chloride [Moles/Vol] 105 mmol/L Normal 95-107 [facility] Comment on above: Performed By: #### C BCWD #### [facility] [address] [place] [address] CO2 [Moles/Vol] 22 mmol/L Normal 20-31 [facility] Comment on above: Performed By: #### C BCWD #### [facility] [address] [place] [address] Creatinine [Mass/Vol] 0.48 mg/dL Low 0.50-0.90 [facility] Comment on above: Performed By: #### C BCWD #### [facility] [address] [place] [address] GFR >60.0 Normal >60 [facility] Comment on above: Result Comment: >60 mL/min/1.73m2 EGFR, calc. for ages 18 and older using the MDRD formula (not corrected for weight), is valid for stable renal function. Performed By: #### C BCWD #### [facility] [address] [place] [address] GFR/1.73 sq M.predicted among blacks MDRD (S/P/Bld) [Vol rate/Area] mL/min/{1.73_m2} Normal >60 [facility] Comment on above: Result Comment: >60 mL/min/1.73m2 EGFR, calc. for ages 18 and older using the MDRD formula (not corrected for weight), is valid for stable renal function. Performed By: #### C BCWD #### [facility] [address] [place] [address] Globulin (S) [Mass/Vol] 2.5 g/dL Normal 2.3-3.5 [facility] Comment on above: Performed By: #### C BCWD #### [facility] [address] [place] [address] Glucose [Mass/Vol] 114 mg/dL Critically high 70-99 M [facility] Comment on above: Performed By: #### C BCWD #### [facility] [address] [place] [address] Magnesium [Moles/Vol] 3.6 mmol/L Normal 3.4-4.9 [facility] Comment on above: Performed By: #### C BCWD #### [facility] [address] [place] [address] Protein [Mass/Vol] 6.8 g/dL Normal 6.3-8.0 [facility] Comment on above: Performed By: #### C BCWD #### [facility] [address] [place] [address] Sodium [Moles/Vol] 140 mmol/L Normal 135-144 [facility] Comment on above: Performed By: #### C BCWD #### [facility] [address] [place] [address] Urea nitrogen [Mass/Vol] 10 mg/dL Normal 6-20 [facility] Comment on above: Performed By: #### C BCWD #### [facility] [address] [place] [address] Comprehensive Metabolic Pane l w/ Reflex to MGon 08-21-2021 Albumin [Mass/Vol] 4.3 g/dL 3.5 - 4.6 g/dL [facility] ALP (Bld) [Catalytic activity/Vol] 116 U/L 40 - 130 U/L [facility] ALT [Catalytic activity/Vol] 8 U/L 0 - 33 U/L [facility] Anion gap [Moles/Vol] 13 mmol/L [facility] AST [Catalytic activity/Vol] 10 U/L 0 - 35 U/L [facility] Bilirubin [Mass/Vol] mg/dL 0.2 - 0 .7 mg/dL [facility] Calcium [Mass/Vol] 9.3 mg/dL 8.5 - 9.9 mg/dL [facility] Chloride [Moles/Vol] 105 mmol/L [facility] CO2 [Moles/Vol] 22 mmol/L [facility] Creatinine [Mass/Vol] 0.48 mg/dL Low 0.50 - 0.90 mg/dL [facility] Free PSA/Total PSA [Mass fraction] 6.8 g/dL 6.3 - 8.0 g/dL [facility] GFR >60.0 >60 [facility] Comment on above: >60 mL/min/1.73m2 EG FR, calc. for ages 18 and older using the MDRD formula (not corrected for weight), is valid for stable renal function. GFR Non- >60.0 >60 [facility] Comment on above: >60 mL/min/1.73m2 EG FR, calc. for ages 18 and older using the MDRD formula (not corrected for weight), is valid for stable renal function. Globulin (S) [Mass/Vol] 2.5 g/dL 2.3 - 3.5 g/dL [facility] Glucose [Mass/Vol] 114 mg/dL High 70 - 99 mg/dL [facility] Interpretation and review of laboratory results Abnormal [facility] Potassium reflex Magnesium 3.6 [facility] Sodium [Moles/Vol] 140 mmol/L [facility] Urea nitrogen (BldV) [Mass/Vol] 10 mg/dL 6 - 20 mg/dL [facility] Lipaseon 08-21-2021 Lipase [Catalytic activity/Vol] 18 U/L Normal 12-95 [facility] Comment on above: Performed By: #### L IPAS #### [facility] [address] [id number] Lipase [Catalytic activity/Vol] 18 U/L 12 - 95 U/L [facility] No Panel Informationon 08-21 [facility] , Urineon 2 Beta HCG ( test) Ql (U) Negative Detects HCG level >20 MIU/mL [facility] UR HCG Qualitativeon 022 Beta HCG ( test) Ql (U) Negative Normal Detects [facility] Comment on above: Performed By: #### C BCWD #### [facility] [address] [place] [address] Urinalysis with Reflex to Cu ltureon 08-21-2021 Bilirubin Urine Negative Negative [facility] Blood, Urine Negative Negative [facility] Clarity, UA Clear Clear [facility] Color, UA Yellow Straw/Yellow [facility] Glucose, Ur Negative Negative mg/dL [facility] Ketones Ql (U) Negative Negative mg/dL [facility] Leukocyte esterase Test strip Ql (U) Negative Negative [facility] Nitrite, Urine Negative Negative [facility] pH, UA 5.5 [facility] Protein, UA Negative Negative mg/dL [facility] Specific [place], UA <=1.005 [facility] Urine Reflex to Culture Not Indicated [facility] Urobilinogen, Urine 0.2 <2.0 E.U./dL [facility] Urinalysis, reflex to cultur minoo 08-21-2021 Bilirubin Ql (U) Negative Normal Negative [facility] Comment on above: Performed By: #### C BCWD #### [facility] [address] [place] [address] Clarity (U) Clear Normal Clear [facility] Comment on above: Performed By: #### C BCWD #### [facility] [address] [place] [address] Color (U) Yellow Normal Straw/[place] [facility] Comment on above: Performed By: #### C BCWD #### [facility] [address] [place] [address] Glucose Ql (U) Negative Normal Negative [facility] Comment on above: Performed By: #### C BCWD #### [facility] [address] [place] [address] Hemoglobin Ql (U) Negative Normal Negative [facility] Comment on above: Performed By: #### C BCWD #### [facility] [address] [place] [address] Ketones Ql (U) Negative Normal Negative [facility] Comment on above: Performed By: #### C BCWD #### [facility] [address] [place] [address] Leukocyte esterase Test strip Ql (U) Negative Normal Negative [facility] Comment on above: Performed By: #### C BCWD #### [facility] [address] [place] [address] Nitrite Ql (U) Negative Normal Negative [facility] Comment on above: Performed By: #### C BCWD #### [facility] [address] [place] [address] pH (U) 5.5 [pH] Normal 5.0-9.0 [facility] Comment on above: Performed By: #### C BCWD #### [facility] [address] [place] [address] Protein Ql (U) Negative Normal Negative [facility] Comment on above: Performed By: #### C BCWD #### [facility] [address] [place] [address] Specific gravity (U) [Rel density] <=1.005 Normal 1.005-1.03 [facility] Comment on above: Performed By: #### C BCWD #### [facility] [address] [place] [address] Urine Reflexed to Culture Not Indicated Normal [facility] Comment on above: Performed By: #### C BCWD #### [facility] [address] [place] [address] Urobilinogen Qn (U) 0.2 {Ginger'U}/dL Normal < 2.0 [facility] Comment on above: Performed By: #### C BCWD #### [facility] [address] [place] [address] CBC WITH AUTO DIFFERENTIALon 02-29-2020 Basophils (Bld) [#/Vol] 0.0 10*3/uL 0 - 0.2 K/uL [facility], [place] Basophils/100 WBC (Bld) 0.4 % [place] Eosinophils (Bld) [#/Vol] 0.2 10*3/uL 0 - 0.7 K/uL [place] Eosinophils/100 WBC (Bld) 2.6 % [place] Erythrocyte distribution width (RBC) [Ratio] 13.6 % 11.5 - 14.5 % [place] Hematocrit (Bld) [Volume fraction] 40.3 % 37 - 47 % [place] Hemoglobin (Bld) [Mass/Vol] 13.6 g/dL 12 - 16 g/dL [place] Lymphocytes (Bld) [#/Vol] 1.7 10*3/uL 1 - 4.8 K/uL [place] Lymphocytes/100 WBC (Bld) 21.0 % [place] MCH (RBC) [Entitic mass] 31.0 pg 27 - 31.3 pg [place] MCHC (RBC) [Mass/Vol] 33.9 % 33 - 37 % [place] MCV (RBC) [Entitic vol] 91.6 fL 82 - 100 fL [place] Monocytes (Bld) [#/Vol] 0.4 10*3/uL 0.2 - 0.8 K/uL [place] Monocytes/100 WBC (Bld) 4.6 % [place] Neutrophils Absolute 5.6 K/uL 1.4 - 6 .5 K/uL [place] Neutrophils/100 WBC (Bld) 71.4 % [place] Platelets (Bld) [#/Vol] 195 10*3/uL 130 - 400 K/uL [place] RBC (Bld) [#/Vol] 4.40 10*6/uL [place] WBC (Bld) [#/Vol] 7.9 10*3/uL 4.8 - 10.8 K/uL [place] COVID-19on 02-29-2020 SARS-CoV-2, NAAT Not Detected Not Detected [place] Comment on above: Rapid NAAT: Negative [...] authorized laboratories. Fact sheet for Healthcare Providers: https://www.fda.gov/media/970356/download Fact sheet for Patients: https://www.fda.gov/media/328069/download METHODOLOGY: Isothermal Nucleic Acid Amplification POC UR-QUALon 02-11 Beta HCG ( test) Ql (U) Negative Negative [place] Lot Number HCG [id number] [place] Negative QC Pass/Fail Pass [place] Positive QC Pass/Fail Pass [place] Hemoglobinon 11-03-2019 Hemoglobin (Bld) [Mass/Vol] 11.2 g/dL Low 12 - 16 g/dL [place] Interpretation and review of laboratory results Abnormal [place] RPRon 11-03-2019 Reagin Ab RPR Ql (S) Non-reactive Non-reactive [place] CBC auto differentialon 10-13 Basophils (Bld) [#/Vol] 0.0 10*3/uL 0 - 0.2 K/uL [place] Basophils/100 WBC (Bld) 0.3 % [place] Eosinophils (Bld) [#/Vol] 0.1 10*3/uL 0 - 0.7 K/uL [place] Eosinophils/100 WBC (Bld) 1.2 % [place] Erythrocyte distribution width (RBC) [Ratio] 13.4 % 11.5 - 14.5 % [place] Hematocrit (Bld) [Volume fraction] 34.9 % Low 37 - 47 % [place] Hemoglobin (Bld) [Mass/Vol] 11.7 g/dL Low 12 - 16 g/dL [place] Interpretation and review of laboratory results Abnormal [place] Lymphocytes (Bld) [#/Vol] 1.4 10*3/uL 1 - 4.8 K/uL [place] Lymphocytes/100 WBC (Bld) 11.4 % [place] MCH (RBC) [Entitic mass] 31.2 pg 27 - 31.3 pg [place] MCHC (RBC) [Mass/Vol] 33.6 % 33 - 37 % [place] MCV (RBC) [Entitic vol] 93.0 fL 82 - 100 fL [place] Monocytes (Bld) [#/Vol] 0.5 10*3/uL 0.2 - 0.8 K/uL [place] Monocytes/100 WBC (Bld) 4.2 % [place] Neutrophils Absolute 10.1 K/uL High 1.4 - 6 .5 K/uL [place] Neutrophils/100 WBC (Bld) 82.9 % [place] Platelets (Bld) [#/Vol] 191 10*3/uL 130 - 400 K/uL [place] RBC (Bld) [#/Vol] 3.75 10*6/uL Low [place] WBC (Bld) [#/Vol] 12.1 10*3/uL High 4.8 - 10.8 K/uL [place] Comprehensive Metabolic Pane fortunato 11-02-2019 Albumin [Mass/Vol] 3.2 g/dL Low 3.5 - 4.6 g/dL [place] ALP [Catalytic activity/Vol] 147 U/L High 40 - 130 U/L [place] ALT [Catalytic activity/Vol] 6 U/L 0 - 33 U/L [place] Anion gap [Moles/Vol] 10 mmol/L [place] AST [Catalytic activity/Vol] 7 U/L 0 - 35 U/L [place] Bilirubin Ql (U) <0.2 0.2 - 0.7 mg/dL [place] Calcium [Mass/Vol] 8.4 mg/dL Low 8.5 - 9.9 mg/dL [place] Chloride [Moles/Vol] 104 mmol/L [place] CO2 [Moles/Vol] 21 mmol/L [place] Creatinine [Mass/Vol] 0.3 mg/dL Low 0.5 - 0.9 mg/dL [place] GFR >60.0 >60 [place] Comment on above: >60 mL/min/1.73m2 EG FR, calc. for ages 18 and older using the MDRD formula (not corrected for weight), is valid for stable renal function. GFR Non- >60.0 >60 [place] Comment on above: >60 mL/min/1.73m2 EG FR, calc. for ages 18 and older using the MDRD formula (not corrected for weight), is valid for stable renal function. Globulin (S) [Mass/Vol] 2.8 g/dL 2.3 - 3.5 g/dL [place] Glucose [Mass/Vol] 103 mg/dL High 70 - 99 mg/dL [place], [place] Interpretation and review of laboratory results Abnormal [place] Potassium [Moles/Vol] 3.9 mmol/L [place] Protein [Mass/Vol] 6.0 g/dL Low 6.3 - 8 g/dL [place] Sodium [Moles/Vol] 135 mmol/L [place] Urea nitrogen [Mass/Vol] 8 mg/dL 6 - 20 mg/dL [place] DRUG SCREEN MULTI URINEon Amphetamine Screen, Urine Negative Negative <1000 ng/mL [place] Barbiturate Screen, Ur Negative Negative < 200 ng/mL [place] Benzodiazepine Screen, Urine Negative Negative < 200 ng/mL [place] Cannabinoid Scrn, Ur Negative Negativ e < 50 ng/mL [place] Cocaine Metabolite Screen, Urine Negative Negative < 300 ng/mL [place] Drug Screen Comment: see below [place] Comment on above: This method is a scr eening test to detect only these drug classes as part of a medical workup. Confirmatory testing by another method should be ordered if clinically indicated. Methadone Screen, Urine Negative Negative <300 ng/mL [place] Comment on above: Effective: 10/20/18 New Test for Qualitative Drug Screen. Opiate Scrn, Ur Negative Negative < 300 ng/mL [place] Oxycodone Urine Negative Negative <10 0 ng/mL [place] Comment on above: Effective: 10/20/18 New Test for Qualitative Drug Screen. PCP Screen, Urine Negative Negative < 25 ng/mL [place] Propoxyphene Scrn, Ur Negative Negative <300 ng/mL [place] Comment on above: Effective: 10/20/18 New Test for Qualitative Drug Screen. Hepatitis B surface antigeno n 11-02-2019 Hep B S Ag Interp Non-reactive [place] Rubella antibody, IgGon 10-13 Rubella Antibody IgG 69.5 IU/mL [place] Comment on above: Patient's result ind icates immunity. Default Normal Ranges >=10 Presumed Immune <10 Presumed Not immune TYPE AND SCREENon 11-02-2019 ABO/Rh Positive [place] Urinalysison 11-02-2019 Bilirubin Urine Negative Negative [place] Blood, Urine Negative Negative [place] Clarity, UA Clear Clear [place] Color, UA Yellow Straw/Yellow [place] Glucose, Ur Negative Negative mg/dL [place] Ketones Ql (U) Negative Negative mg/dL [place] Leukocyte esterase Test strip Ql (U) Negative Negative [place] Nitrite, Urine Negative Negative [place] pH, UA 7.5 [place] Protein (U) [Mass/Vol] Negative Negative mg/dL [place] Specific [place], UA 1.020 [place] Urobilinogen, Urine 0.2 <2.0 E.U./dL [place] Otheron 06-19-2019 APPROPRIATE GROWTH SINCE LAST SONOGRAM. [place] Sonogram #: 1 Presentation: Transverse, head [...] the amniotic fluid is within normal limits. [facility] [place] [place] Manny, Chpo Incoming Radiant Results From [employer] - 06/19/2019 5:09 PM EDT Sonogram #: [...] limits. IMPRESSION: APPROPRIATE GROWTH SINCE LAST SONOGRAM. [employer] US OB LESS THAN 14 WEEKS SIN GLE OR FIRST GESTATIONon 04-14-2019 THERE IS A SINGLE IU P WITH ESTIMATED GESTATIONAL AGE BASED UPON CROWN-RUMP LENGTH OF 10 WEEKS 2 DAYS +/- 1 WEEK WITH HEART RATE OF 155 BPM. ANATOMY IS NOT ASSESSED DUE TO EARLY GESTATIONAL AGE. THE RIGHT OVARY IS SURGICALLY ABSENT. THE LEFT OVARY SUBMITTED VISUALIZED. [employer] [place] TRANSABDOMINAL EXAMINATION OF THE PELVIS CLINICAL DATA: [...] ovary is not visualized. No free fluid. [facility] Manny[facility] Chpo Incoming Radiant Results From [email or web address] - 04/14/2019 4:16 PM EST TRANSABDOMINAL EXAMINATION [...] SURGICALLY ABSENT. THE LEFT OVARY SUBMITTED VISUALIZED. [facility] PROGRESSon 09-30-2018 PROGRESS HNO ID: [id number] Author: Maranda Praker (Christian) Vimal Service: ? Author Type: ON LINE CSR Type: Progress Notes Filed: 09/30/2018 3:29 PM [...] OD September 30, 2018 2:08 PM Normal [facility] PROGRESSon 04-24-2018 PROGRESS HNO ID: [id number] Author: Maranda Celis Service: ? Author Type: ON LINE CSR Type: Progress Notes Filed: 04/24/2018 3:32 PM [...] OD April 24, 2018 3:31 PM Normal [facility] Office Visit (Urgent Care)on 08-21-2017 Office Visit (Urgent Care) Chief Complaint Rash History of Present [id number] female who 2 hours ago was sitting [...] 08/21/2017 5:38:10 PM Vitals Vital Signs Recorded: [id number] 05:60MVCttkharqani86. 5 FHeart [id number] [id number] Height5 ft 3 [id number] lb BMI [id number] Calculated1.83O2 Urxvtklccs84Ozhz Scale0 Physical ExamPatient appears in no apparent [...] 160 cm Sulema Teran DO Work Phone: [email or web address] 12-16-2021 07:12-0400 Body mass index (BMI) [Ratio] 31.89 kg/m2 Sulema Teran DO Work Phone: [email or web address] 12-16-2021 07:12-0400 Body temperature 98.91 [degF] Sulema Teran DO Work Phone: [email or web address] 12-16-2021 07:12-0400 Body weight 81.65 kg Sulema Teran DO Work Phone: [email or web address] 12-16-2021 07:12-0400 Diastolic blood pressure 84 mm[Hg] Sulema Teran DO Work Phone: [email or web address] 12-16-2021 07:12-0400 Heart rate 104 /min Sulema Teran DO Work Phone: [email or web address] 12-16-2021 07:12-0400 Respiratory rate 18 /min Sulema Teran DO Work Phone: [facility] [employer] 12-16-2021 07:12-0400 SaO2% (BldA) [Mass fraction] 98 % Sulema Teran DO Work Phone: [facility] [employer] 12-16-2021 07:12-0400 Systolic blood pressure 127 mm[Hg] Sulema Teran DO Work Phone: [facility] [employer] 10-28-2021 15:43-0400 Body height 160 cm Nikki Martha-David PA-C Work Phone: [facility] [employer] 10-28-2021 15:43-0400 Body mass index (BMI) [Ratio] 31.89 kg/m2 Nikki Martha-David PA-C Work Phone: [facility] [employer] 10-28-2021 15:43-0400 Body temperature 98.1 [degF] Nikki Martha-David PA-C Work Phone: [facility] [employer] 10-28-2021 15:43-0400 Body weight 81.65 kg Nikki Martha-David PA-C Work Phone: [facility] [employer] 10-28-2021 15:43-0400 Diastolic blood pressure 81 mm[Hg] Nikki Martha-David PA-C Work Phone: [facility] [employer] 10-28-2021 15:43-0400 Heart rate 93 /min Nikki Martha-David PA-C Work Phone: [facility] [employer] 10-28-2021 15:43-0400 Respiratory rate 20 /min Nikki Martha-David PA-C Work Phone: [facility] [employer] 10-28-2021 15:43-0400 SaO2% (BldA) [Mass fraction] 98 % Nikki Martha-David PA-C Work Phone: [email or web address] 10-28-2021 15:43-0400 Systolic blood pressure 130 mm[Hg] Nikki Froilan PA-C Work Phone: [facility] [employer] 08-21-2021 06:21-0400 Body temperature 98.2 [degF] Penyn Ritter MD Work Phone: [email or web address] 08-21-2021 06:21-0400 Diastolic blood pressure 58 mm[Hg] Penny Ritter MD Work Phone: [email or web address] 08-21-2021 06:21-0400 Heart rate 81 /min Penny Ritter MD Work Phone: [email or web address] 08-21-2021 06:21-0400 Respiratory rate 16 /min Penny Ritter MD Work Phone: [email or web address] 08-21-2021 06:21-0400 SaO2% (BldA) [Mass fraction] 97 % Penny Ritter MD Work Phone: [email or web address] 08-21-2021 06:21-0400 Systolic blood pressure 116 mm[Hg] Penny Ritter MD Work Phone: [email or web address] 08-21-2021 01:09-0400 Body height 160 cm Penny Ritter MD Work Phone: [email or web address] 08-21-2021 01:09-0400 Body mass index (BMI) [Ratio] 32.06 kg/m2 Penny Ritter MD Work Phone: [email or web address] 08-21-2021 01:09-0400 Body weight 82.1 kg Penny Ritter MD Work Phone: [email or web address] 11-05-2020 07:21-0400 Body temperature 98.1 [degF] Rebecca Gonzalez [employer] Work Phone: 11-05-2020 07:21-0400 Diastolic blood pressure 71 mm[Hg] Rebecca Gonzalez [employer] Phone: 11-05-2020 07:21-0400 Heart rate 94 /min Rebecca Gonzalez [employer] Phone: 11-05-2020 07:21-0400 Respiratory rate 18 /min Rebecca Gonzalez [employer] Phone: 11-05-2020 07:21-0400 SaO2% (BldA) [Mass fraction] 99 % Rebecca Gonzalez [employer] Phone: 11-05-2020 07:21-0400 Systolic blood pressure 116 mm[Hg] Rebecca Gonzalez [employer] Phone: 02-29-2020 12:25-0500 Body Temperature 97.7 [degF] Rj [email or web address], MD 02-29-2020 12:25-0500 BP Diastolic 56 mm[Hg] Rj [employer] [facility] [employer] , [place] 02-29-2020 12:25-0500 BP Systolic 123 mm[Hg] Rj [employer] [facility] , [place] 02-29-2020 12:25-0500 Pulse (Heart Rate) 76 /min [facility] [place] 02-29-2020 12:25-0500 Pulse Oximetry 99 % Rj [employer] [facility] , [place] 02-29-2020 12:25-0500 Respiratory Rate 16 /min Rj [employer], MD 02-29-2020 08:15-0500 BMI (Body Mass Index) 34.54 kg/m2 Rj Lauren Billaway [facility], [place] 02-29-2020 08:15-0500 Body weight 88.45 kg Rj [employer] [facility] , [place] 02-29-2020 08:15-0500 Height 160 cm [facility] , [place] 11-04-2019 07:30-0400 Body Temperature 98.29 [degF] [facility] [place] 11-04-2019 07:30-0400 BP Diastolic 68 mm[Hg] Rj [facility] , [place] 11-04-2019 07:30-0400 BP Systolic 115 mm[Hg] Rj [facility] , [place] 11-04-2019 07:30-0400 Pulse (Heart Rate) 88 /min Rj [facility], [place] 11-04-2019 07:30-0400 Respiratory Rate 16 /min Rj [facility], [place] 11-03-2019 12:37-0400 Pulse Oximetry 99 % Rj [facility] , [place] 11-02-2019 07:45-0400 BMI (Body Mass Index) 37.91 kg/m2 Rj Aguilar [facility], [place] 11-02-2019 07:45-0400 Body weight 97.07 kg Rj [facility] , [place] 11-02-2019 07:45-0400 Height 160 cm Rj [facility] , [place] 09-30-2018 10:02-0400 BMI (Body Mass Index) 31 kg/m2 Tip [facility], [place] 09-30-2018 10:02-0400 Body Temperature 98.49 [degF] Tip [facility], MD 09-30-2018 10:02-0400 Body weight 79.38 [facility] [place] 09-30-2018 10:02-0400 BP Diastolic 71 mm[Hg] [facility] , [place] 09-30-2018 10:02-0400 BP Systolic 139 mm[Hg] [facility] , [place] 09-30-2018 10:02-0400 Height 160 cm [facility] , [place] 09-30-2018 10:02-0400 Pulse (Heart Rate) 102 /min [facility], [place] 09-30-2018 10:02-0400 Pulse Oximetry 98 % [facility] , [place] 09-30-2018 10:02-0400 Respiratory Rate 14 /min [facility] [place], [place] Encounters Encounter Date Encounter Type Care Provider Facility Start: 04-01-2023 End: 04-01-2023 ambulatory JOSE F SETH Not Available Start: 03-21-2023 End: 03-21-2023 ambulatory JOSE F R SETH [facility] Start: 03-18-2023 Chart abstracting Fish lorenz MD Work Phone: [facility] Start: 03-11-2023 End: 03-11-2023 ambulatory JOSE F SETH Not Available Start: 02-18-2023 End: 02-18-2023 ambulatory DONNELL FINCH Not Available Start: 01-29-2023 End: 01-30-2023 ambulatory [facility] Facility:[facility] Start: 01-29-2023 End: 01-29-2023 Patient encounter procedure Jose F R SETH [facility] Start: 01-29-2023 End: 01-30-2023 ambulatory Jose F R SETH Facility:[facility] Start: 01-29-2023 End: 01-29-2023 Patient encounter procedure Jose F R SETH [facility] Start: 01-11-2023 End: 01-12-2023 ambulatory Jose F R SETH Facility:[facility] Start: 01-11-2023 End: 01-11-2023 Patient encounter procedure Jose F R SETH [facility] Start: 01-10-2023 End: 01-10-2023 ambulatory JOSE F SETH Not Available Start: 12-28-2022 End: 12-28-2022 ambulatory DONNELL FINCH Not Available Start: 07-31-2022 End: 07-31-2022 Emergency department patient visit [facility] Start: 04-11-2022 End: 04-12-2022 ambulatory [facility] Start: 04-11-2022 End: 04-11-2022 Subsequent hospital visit by physician Nikki Mcgovern PA-C Work Phone: [facility] Comment on above: Tonsillitis with exu date Start: 12-16-2021 End: 12-16-2021 Emergency department patient visit [facility] Start: 12-16-2021 End: 12-16-2021 Emergency department patient visit Sulema Teran DO Work Phone: [facility] ED Comment on above: Bitten by mouse, ini tial encounter (Primary Dx) Start: 11-29-2021 End: 11-29-2021 ambulatory [facility] Start: 10-28-2021 End: 10-28-2021 Emergency department patient visit [facility] Start: 10-28-2021 End: 10-28-2021 [facility] Work Phone: [facility] Comment on above: Cellulitis of trunk, unspecified site of trunk (Primary Dx) Start: 08-21-2021 End: 08-21-2021 Emergency department patient visit [facility] Start: 08-21-2021 End: 08-21-2021 Emergency department patient visit Penny Ritter MD Work Phone: [facility] ED Comment on above: Acute gastritis with out hemorrhage, unspecified gastritis type (Primary Dx) Start: 11-05-2020 End: 11-05-2020 Emergency department patient visit Rebecca S Gonzalez DO [facility] ED [...] hospital visit by physician Madhav Ultrasound 3 [facility] Ultrasound Comment on above: Amenorrhea Start: 04-14-2019 End: 04-16-2019 Subsequent hospital visit by physician Olvera Ultrasound Room 1 [facility] Ultrasound Comment on above: Amenorrhea Start: [...] abdomen & pelvis w/contrast material Spring Orozco SOUNDING DEVICE OPERATOR - SEXUAL HEALTH PHYSICIAN Other Phone: Start: 10-28-2021 Blood count complete auto&auto difrntl wbc Spring Orozco SOUNDING DEVICE OPERATOR - SEXUAL HEALTH PHYSICIAN Other Phone: Start: 10-28-2021 Urine test visual color cmprsn meths Spring Orozco SOUNDING DEVICE OPERATOR - SEXUAL HEALTH PHYSICIAN Other Phone: Start: 08-21-2021 Assay of lipase [...] Rj Aguilar Work Phone: c section x2 [employer] Colonoscopy SOLEM [employer] SETH extraction of wisdom teeth [employer] H/O: section Previous c esarean section Mloz 1 Plan of Treatment Date Care Activity Detail Author Start: 12-17-2031 DTaP/Tdap/Td vaccine (3 - Td or Tdap) DTaP/Tdap/Td vaccine (3 - Td or Tdap) [facility] Start: 07-12-2025 Screening for malign ant neoplasm of cervix [facility] Start: 05-27-2024 Screening for malign ant neoplasm of cervix Cervical cancer screen [place], [place] Start: 07-13-2023 Screening for malign ant neoplasm of cervix Pap smear [facility] [employer] Start: 03-21-2023 End: 03-21-2023 Patient encounter procedure 03/21/2023 8:00 AM EST Appointment [facility] [place] [address] [facility] [address] [place] [address] [facility] [place] Start: 03-07-2023 Depression Monitoring Depression Mon [employer] [facility] [employer] [facility] Start: 10-12-2022 Influenza vaccination Influenza Vacc ine [facility] Start: 08-29-2022 Depression Monitoring Depression Mon [employer] [facility] [employer] [facility] Start: 06-08-2022 End: 06-08-2022 Patient encounter procedure 06/08/2022 Office Visit Neurology Blas Mike MD [address] [address] [facility] Neurology Start: 02-02-2022 End: 02-02-2022 Patient encounter procedure 02/02/2022 Office Visit Neurology Blas Mike MD [address] [place] [address] [facility] Neurology Start: 01-10-2022 End: 01-10-2022 Patient encounter procedure 01/10/2022 Office Visit Family Medicine Nikki Mcgovern PA-C [address] [place] [address] [facility] Start: 12-18-2021 End: 12-18-2021 Patient encounter procedure 12/18/2021 Office Visit Orthopedic Surgery Alena Chandra MD [address] [place] [address] [facility] Start: 10-12-2021 Influenza vaccination Flu vaccine (# 1) [facility] Start: 09-29-2021 End: 09-29-2021 Patient encounter procedure 09/29/2021 Office Visit Neurology Blas Mike MD [address] [place] [address] [facility] Neurology Start: 09-11-2021 Influenza vaccination Flu vaccine (# 1) [facility] Start: 01-20-2021 End: 01-20-2021 Patient encounter procedure 01/20/2021 Office Visit Neurology Blas Mike MD [address] [place] [address] [facility] Neurology Start: 12-01-2020 End: 12-01-2020 Patient encounter procedure 12/01/2020 Office Visit Obstetrics and Gynecology Rj Aguilar, [address] [place] [address] [phone] [facility] Obstetrics and Gynecology Start: 10-12-2020 Influenza vaccination Flu vaccine (# 1) [facility] Work Phone: Start: 09-29-2020 End: 09-29-2020 Patient encounter procedure 09/29/2020 Office Visit Family Medicine Nikki Mcgovern PA-C [address] [place] [address] [phone] [facility] Start: 09-16-2020 End: 09-16-2020 Patient encounter procedure 09/16/2020 Office Visit Neurology Blas Mike MD [address] [place] [address] [phone] [facility] Neu[facility] Start: 02-16-2020 End: 02-16-2020 Procedure visit 02/16/2020 Procedure visit Obstetrics and Gynecology Rj Aguilar, [place] [address] [place] [address] [phone] [facility] Obstetrics and Gynecology Start: 12-01-2019 DTaP/Tdap/Td vaccine (2 - Td or Tdap) DTaP/Tdap/Td vaccine (2 - Td or Tdap) [facility] Start: 12-01-2019 DTaP/Tdap/Td vaccine (2 - Td) DTaP/Tdap/Td vaccine (2 - Td) [place], [place] Start: 10-13-2019 Influenza vaccination [place], [place] Start: 06-25-2019 End: 06-25-2019 Routine 06/25/2019 Routine Obstetrics and Gynecology Rj Aguilar DO [address] [place] [address] [phone] [facility] Obstetrics and Gynecology Start: 05-05-2019 End: 05-05-2019 Routine 05/05/2019 Routine Obstetrics and Gynecology Rj Aguilar DO [address] [place] [address] [phone] [facility] Obstetrics [facility] Gynecology Start: 10-12-2018 Influenza vaccination Flu vaccine (# 1) [place] Start: 05-07-2016 Cervical cancer screen Cervical canc er screen [place], [place] Start: 10-20-2008 Screening for malign ant neoplasm of cervix Pap Smear [facility] Start: 10-20-2006 DTaP,Tdap and Td Vaccines (1 - Tdap) DTaP,Tdap and Td Vaccines (1 - Tdap) [facility] Start: 10-20-2005 Adult BMI Screening Adult BMI Screen ing [facility] Start: 10-20-2000 Varicella Vaccine (1 of 2 - 13+ 2-dose series) Varicella Vaccine (1 of 2 - 13+ 2-dose series) [place], [place] Start: 1999 COVID-19 Vaccine (1) COVID-19 Vaccin e (1) [facility] [employer] Phone: Start: 1999 [facility] Start: 1999 Depression Screening Depression Scre ening [facility] Start: 1999 Tobacco Screening Tobacco Screening [facility] Start: 10-20-1993 Pneumococcal 0-64 ye ars Vaccine (1 - PCV) Pneumococcal 0-64 years Vaccine (1 - PCV) [facility] Start: 10-20-1993 Pneumococcal 0-64 ye ars Vaccine (1 of 1 - PPSV23) Pneumococcal 0-64 years Vaccine (1 of 1 - PPSV23) [place] Start: 10-20-1993 Pneumococcal 0-64 ye ars Vaccine (1 of 2 - PPSV23) Pneumococcal 0-64 years Vaccine (1 of 2 - PPSV23) [facility] [employer] Phone: Start: 10-20-1992 COVID-19 Vaccine (1) COVID-19 Vaccin e (1) [facility] Start: 10-20-1988 Varicella vaccine (1 of 2 - 2-dose childhood series) Varicella vaccine (1 of 2 - 2-dose childhood series) [employer] Start: 04-19-1988 COVID-19 Vaccine (#1) COVID-19 Vacci ne (#1) [employer] Start: 1987 Tobacco Counseling Tobacco Counselin [facility] End: 08-21-2021 CT ABDOMEN PELVIS W IV CONTRAST Additional Contrast? None CT ABDOMEN PELVIS W IV CONTRAST Additional Contrast? None Imaging Routine Once for 1 Occurrences starting 08/21/2021 until 08/21/2021 [employer] Phone: Comment on above: Once for 1 Occurrenc es starting 08/21/2021 until 08/21/2021 CT ABDOMEN PELVIS W IV CONTRAST Additional Contrast? None CT ABDOMEN PELVIS W IV CONTRAST Additional Contrast? None Imaging STAT 08/21/2021 2:34 AM EDT [employer] Phone: End: 10-28-2021 Culture, Anaerobic and Aerobic Culture, Anaerobic and Aerobic Microbiology Routine One Time for 1 Occurrences starting 10/28/2021 until 10/28/2021 [employer] Phone: Comment on above: One Time for 1 Occur rences starting 10/28/2021 until 10/28/2021 End: 04-11-2022 Culture, Throat [employer] Phone: Comment on above: 1 Occurrences starti ng 04/11/2022 until 04/11/2022 End: 08-12-2020 Holter Monitor 48 Hour Holter Monitor 48 Hour Cardiac Services Routine Heart palpitations 1 Occurrences starting 08/12/2020 until 08/12/2020 [employer] Phone: Comment on above: 1 Occurrences starti ng 08/12/2020 until 08/12/2020 Oxygen therapy [[facility] Data Set] [facility] Comment on above: Daily until disconti nued starting 11/02/2019 Daily until disconti nued starting 02/29/2020 Phase I & II - meter ed glucose Phase I & II - metered glucose Point of Care Testing Routine As Needed until discontinued starting 02/29/2020 [place] Comment on above: As Needed until disc ontinued starting 02/29/2020 End: 11-02-2019 RHOGAM INJECTION ONLY RHOGAM INJECTION ONLY Blood Bank Routine One Time for 1 Occurrences starting 11/02/2019 until 11/02/2019 [place] Comment on above: One Time for 1 Occur rences starting 11/02/2019 until 11/02/2019 Spirometry panel Incentive jayleen metry Respiratory Care Routine Every 2hr while awake until discontinued starting 11/02/2019 [place] Comment on above: Every 2hr while awak e until discontinued starting 11/02/2019 Surgical Pathology Surgical Path ology Lab Routine Release Upon Ordering for 1 Occurrences starting 02/29/2020 [place] Comment on above: Release Upon Orderin g for 1 Occurrences starting 02/29/2020 End: 04-14-2019 US OB Transvaginal US OB Transvaginal Imaging Routine Amenorrhea 1 Occurrences starting 04/14/2019 until 04/14/2019 [place] Comment on above: 1 Occurrences starti ng 04/14/2019 until 04/14/2019 US OB Transvaginal US OB Transva ginal Imaging Routine Amenorrhea 04/14/2019 2:44 PM EST [place], [place] Immunizations Immunization Date Immunization Notes Care Provider Nata storey 12-16-2021 tetanus toxoid, redu jameson diphtheria toxoid, and acellular pertussis vaccine, adsorbed Sulema Trean DO Work Phone: [facility] 11-02-2019 diphtheria, tetanus toxoids and acellular pertussis vaccine, unspecified formulation Rj Aguilar [place], [place] 01-22-2017 tetanus toxoid, redu jameson diphtheria toxoid, and acellular pertussis vaccine, adsorbed Jose F ANN [facility] Comment on above: Reason for Medicatio n: Other (see comment) 11-30-2009 tetanus toxoid, redu jameson diphtheria toxoid, and acellular pertussis vaccine, adsorbed Tip Antunez [facility] 10-04-2000 measles, mumps and rubella virus vaccine Rebecca Gonzalez DO [facility] Work Phone: Payers Date Payer Category Payer Medicaid [employer] [facility] [facility] O [id number] 2023-Present [phone] [address] [place] [address] [id number] 2021 Unknown , [id number] 2017 Unknown [id number] 2016 Unknown [facility] MEDICAID xxxxxxxxxxx 2016-Present [phone] CLAIMS DEPARTMENT [address] [place] [address] xxxxxxxxxxx [id number] 2016 Unknown [id number]. [id number] 1987 Unknown [id number] [id number] 1987 Unknown [id number] [id number] 1987 Unknown [id number] [id number] 1987 Unknown [id number] [id number] 1987 Unknown [id number] [id number] 1987 Unknown [id number] [id number] 1987 Unknown [id number] [id number] 1987 Unknown [id number] [id number] 1987 Unknown [id number] [id number] 1987 Unknown [id number] [id number] 1987 Unknown [id number] [id number] 1987 Unknown [id number] [id number] 1987 Unknown [id number] [id number] 1987 Unknown [id number] 1987 Unknown [id number] Social History Date Type Detail Facility Start: 09-30-2018 End: 03-18-2023 Tobacco smoking status NHIS Current every day smoker NAKUL UMANA [facility] History of tobacco use Cigarette Smoker [place], [place] Start: 09-30-2018 End: 03-18-2023 Cigarettes smoked current (pack per day) - Reported [place], [place] Start: 09-30-2018 End: 03-18-2023 Alcohol intake No [facility] Start: 1987 Sex Assigned At Not on file [place], [place] Start: 04-07-2019 End: 04-11-2022 Alcohol intake Current non-drinker of alcohol (finding) [place], [place] Start: 02-19-2019 [place], [place] Exposure to SARS-CoV -2 (event) Unable to assess [place] Start: 11-03-2019 End: 08-29-2021 Tobacco use and exposure Never used [place], [place] Start: 08-11-2021 End: 04-11-2022 Exposure to SARS-CoV-2 (event) Not sure [place] Start: 08-04-2020 End: 04-09-2022 History 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 [employer] Phone: Start: 08-04-2020 End: 04-09-2022 History 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 [employer] Phone: Start: 1987 Sex Assigned At Female B ON [employer] Start: 10-18-2021 End: 12-16-2021 Exposure to SARS-CoV-2 (event) Yes [facility] [employer] Start: 04-09-2022 History SDOH Transpo rt Non-Med 2 [facility] [employer] Phone: Start: 10-13-2017 Tobacco smoking status Heavy t obacco smoker (finding) [facility] Medical Equipment Procedure Code Equipment Code Equipment Origin al Text Equipment Identifier Dates fluorescein ophthalmic strip 1 mg [id number] Start: 09-30-2018 End: 09-30-2018 Clinical Notes 08-21-2021 to 01-11-2023 InstructionsAttachments Note Date & Type Note Facility 01-11-2023 Evaluation + Plan note Diagnostic Tests PendingHIV Screen 4th Generation [employer] 01/11/23Hepatitis B Surface Antigen 01/11/23RPR with Conf Rfx 01/11/23Rubella Antibody IgG 01/11/23HCV Antibody RFX to Quant PCR 01/11/23Urine Culture 01/11/23 [facility] 08-21-2021 Hospital Discharg e instructions Penny Ritter MD - 08/21/2021 Return to the Emergency Department immediately if you develop worsening symptoms, or you have any other concerns. Please follow up with your family doctor in 1-2 days. The following attachments cannot be sent through Care Everywhere.Gastritis (Japanese)documented in this encounter [employer] Phone: Evaluation note Diagnosis Heart palpitations Palpitations documented in this encounter [employer] Phone: evaluation note* Diagnosis Dental abscess- Primary Periapical abscess without sinus documented in this encounter [employer] Phone: evaluation note* Diagnosis Acute gastritis without hemorrhage, unspecified gastritis type- Primary documented in this encounter [facility] [employer] Phone: evaluation note* Diagnosis Cellulitis of trunk, unspecified site of trunk- Primary documented in this encounter [facility] [employer] Phone: evaluyrhyg note* Diagnosis Bitten by mouse, initial encounter- Primary documented in this encounter [facility] [employer] Phone: evaluation note* Diagnosis Tonsillitis with exudate Acute tonsillitis documented in this encounter [facility] [employer] Phone: Hospital course Narrative No data available for this section [facility]* Attachments The following attachments cannot be sent through Care Everywhere. * Tooth: Abscessed (Japanese) [facility]: Hospital Discharge instructions* Attachments The following attachments cannot be sent through Care Everywhere. * Cellulitis (Japanese) [facility] [employer] Phone: Hospital Discharge instructions* Attachments The following attachments cannot be sent through Care Everywhere. * Bites: Animal (Japanese) [facility] [employer] Phone: Hospital Discharge instructions No data available for this section [facility]ructionsNot on filedocumented in this encounter [facility] SystemProgress note No data available for this section [facility] Summary Purpose Family History No [...] FoundDocuments on File Type Date Recorded Patient Cytopathology Technologist Expl anation Advance Directives and Living Will Power of Business Banking Sales Assistant Documents on File Type Date Recorded Patient Cytopathology Technologist Expl anation Advance Directives and Living Will Power of Business Banking Sales Assistant Documents on File Type Date Recorded Patient Cytopathology Technologist Expl anation ACP-Advance Directive ACP-Power of Business Banking Sales Assistant Latest Code Status on File Code Status Date Activated Date Inactivated Comments Full Code 11/02/2019 12:26 PM Full Code 11/02/2019 7:35 AM 11/02/2019 12:26 PM Latest Code Status on File Code Status Date Activated Date Inactivated Comments Full Code 11/02/2019 12:26 PM 11/04/2019 3:22 PM Documents on File Type Date Recorded Patient Cytopathology Technologist Expl anation ACP-Advance Directive ACP-Power of Business Banking Sales Assistant Latest Code Status on File Code Status [...] * LEEP (LOOP ELECTROSURGICAL EXCISION PROCEDURE): POST-OP (AMHARIC) * Coronavirus Disease (COVID-19): General Info (Japanese) documented in this encounter Assessments Diagnosis Pain [...] Rj Aguilar, DO [address] [place] [address] Status Reason Specialty Diagnoses / Procedures Referre d By Contact Referred To Contact [facility] Diagnoses Amenorrhea Procedures US OB Transvaginal Rj Aguilar, DO [address] [place] [address] Status Reason Specialty Diagnoses / Procedures Referre d By Contact Referred To Contact [facility]iology Diagnoses Amenorrhea Procedures US OB TRANSVAGINAL Rj Aguilar, DO [address] [place] [address] Status Reason Specialty Diagnoses / Procedures Referred By Contact Referred To Contact Not Required - Recondo Radiology Diagnoses Amenorrhea Procedures US OB 14 Plus Weeks Single or First Gestation HC US OB GREATER THAN 14 WEEKS SINGLE FETUS Rj Aguilar, DO [address] [place] [address] Status Reason Specialty Diagnoses / Procedures Referre d By Contact Referred To Contact Closed Diagnoses Heart palpitations Procedures Holter Monitor 48 Hour Nikki Mcgovern PA-C [address] [place] [address] History of Present Illness * Rj Aguilar, [...] 50 mL IVPB (duplex), 2 g, Intravenous, 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 DATE CREATED AUTHOR AUTHOR'S ORGANIZ ATION 07/31/2022 [facility] DATE CREATED AUTHOR AUTHOR'S ORGANIZ ATION 01/31/2023 [facility] DATE CREATED AUTHOR AUTHOR'S ORGANIZ ATION 03/25/2023 [facility] DATE CREATED AUTHOR AUTHOR'S ORGANIZ ATION 04/02/2023 [facility] EPIC Reason for Visit [...] GESTATION Rj Aguilar DO [address] [place] [address] Status Reason Specialty Diagnoses / Procedures Referred By Contact Referred To Contact Not Required - [facility] Diagnoses Amenorrhea Procedures US OB 14 Plus Weeks Single or First Gestation HC US OB GREATER THAN 14 WEEKS SINGLE FETUS Rj Aguilar, DO [address] [place] [address] Reason Comments Other Scheduled C/S Status Reason Specialty Diagnoses / Procedures Referre d By Contact Referred To Contact Diagnoses Status post repeat low transverse section repeat Procedures CO DELIVERY ONLY SECTION Rj Aguilar, DO [address] [place] [address] [facility] Status Reason Specialty Diagnoses / Procedures Re ferred By Contact Referred To Contact Diagnoses HGSIL Pap smear of anus HGSIL Procedures CO COLPOSCOPY,ENTIRE VAGINA LOOP ELECTROSURGICAL EXCISION PROCEDURE COLPOSCOPY, ECC (PAT ON ADMIT) RAPID COVID Rj Aguilar, DO [address] [place] [address] [facility] Status Reason Specialty Diagnoses / Procedures Referre d By Contact Referred To Contact Closed Diagnoses Heart palpitations Procedures Holter Monitor 48 Hour Nikki Mcgovern PA-C [address] [place] [address] Reason Comments Dental Pain right upper gum [...] 28 capsule 0 10/28/2021 11/04/2021 nystatin (MYCOSTATIN) 835922 UNIT/GM powder Apply topically 2 times daily [...] Care Teams (unrecognized sec tion and content) Religion Professor Relationship Specialty Start Date End Date Nikki Mcgovern PA-C PCP - General 03/29/15 Religion Professor Relationship Specialty Start Date End Date Nikki Mcgovern PA-C PCP General 03/29/15 Religion Professor Relationship Specialty Start Date End Date Nikki Mcgovern PA-C [facility] 03/29/15 Religion Professor Relationship Specialty Start Date End Date Nikki Mcgovern PA-C [facility] 03/29/15 FOR RECORDS PERTAINING TO PATIENTS WHO [...] BE BASED ON THE PRIMARY CLINICAL RECORDS. [facility] [employer], [facility]. provides no warranty or guarantee of the accuracy or completeness of information in this document.
== END 2023-04-09 20:51 | disposition home or self-care (01) ==
LOC: LAB 20:50
PROVIDERS: Visit Provider Obstetrics & Gynecology
DX: Z34.93 Encounter for supervision of normal pregnancy, unspecified, third trimester (principal)
CPT/HCPCS: 87081

== ENCOUNTER 2023-04-17 07:10 | Outpatient (OUT) | payer OTHER, SELFPAY ==
--- OUTSIDE RECORDS SUMMARY | 2023-04-06 07:22 | XMS_ITS | CCD ---
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 Name Role Phone Nikki Mcgovern Primary Care [...] Drug Allergy 2 Nausea And Vomiting, Headache [facility] Phone: (4 sources) traMADol; Translations: [TRAMADOL] Drug Allergy 2 [facility] Phone: (1 source) No Known Medication Allergies; Translations: [No Known Medication Allergies] Propensity to adverse reactions (disorder) [facility] Repository Medications Current Medications Medication [...] Pain - Moderate, 30 tab(s), Refill(s) 0, [facility] Start Date: 01/22/17 Status: Ordered [...] BID, # 60 cap(s), Refills(s) 0, Pharmacy: [facility]387 Start Date: 01/22/17 Status: Ordered Ethinyl Estradiol [...] Refill(s) 5, Start 3 weeks after delivery, [facility] Start Date: 01/22/17 Status: [...] Mild, # 40 tab(s), Refills(s) 0, Pharmacy: [facility] Start Date: 01/22/17 Status: [...] sources) Polyene Antifungal Start: 10-28-2021 nystatin (MYCOSTATIN) 331521 UNIT/GM powder Apply topically 2 times daily [...] Give after delivery of placenta. Prenat w/o A-YiKzc-API-FA-DHA (PRENAISSANCE PLUS) 28-1-250 MG CAPS (4 sources) Start: 06-03-2019 take 1 tablet by mouth once daily Prenat w/o Y-JbHne-TPS-FA-DHA (PRENAISSANCE PLUS) 28-1-250 MG CAPS Take 1 tablet by mouth daily 30 capsule 06/03/2019 Suspended Start: 06-03-2019 take 1 tablet by mario th once daily Prenat w/o L-JnWmw-JTU-FA-DHA (PRENAISSANCE PLUS) 28-1-250 MG CAPS Take 1 [...] tablet 3 04/09/2017 09/30/2018 Discontinued (LIST CLEANUP) By-[id number]-IE-Tqqkiq (PRENATE AM PO) (1 source) End: 09-30-2018 Kk-[id number]-Tyfnty (PRENATE AM PO) Take by mouth 0 09/30/2018 Discontinued (LIST CLEANUP) Multivitamins with Folic Acid 1 mg oral tablet (3 sources) Start: 07-26-2016 Multivitamins with Folic Acid 1 mg oral tablet 1 tab(s), Oral, Daily, 100 tab(s), Refill(s) 0, [facility] Start Date: 07/26/16 Status: [...] Extremities Normal Diaphragm Normal ACI Normal Normal [facility] CHEMISTRYOrdered By: SYSTEM SYSTEM on 01-29-2023 Glucose [Mass/Vol] 157 mg/dL High 55 - 140 mg/dL Remisol Chem Consent for Treatmenton 01-11 Consent for Treatment [id number] .00TIFF Normal [facility] Consent for Treatment [id number] .00TIFF Normal [facility] Gest Scr Glu 1 Hron 01-30-20 23 Glucose [Mass/Vol] 157 mg/dL High 55-140 [facility] Comment on above: Performed By: #### 2 [id number], [id number], 808355224, 2389015776, 489149399, 612764620, 7023830, 7569944, 4773886 #### [facility] Laboratory [address] [place] [address] Glucose 1h post 50g loadon 04-01-2022 Glucose, 1 hr PP 50GM dose 157 [facility] Physician Orderon 01-29-2023 Physician Order [id number]# 1.00TIFF Normal [facility] Physician Orderon 01-28-2023 Physician Order [id number] .00TIFF Normal [facility] C Urineon 01-13-2023 Bacteria identified [...] This test was performed at: [facility], [address] [place] [address], [address] , , [facility] Comment on above: Performed By: #### 2 [id number], 30606343, 107929860, 6543866026, 580474334, 602095334, 3560152, 3497646, 4790418 #### [facility] [address] [place] [address] .Interpretation:on HCV Ab IA Ql Comment Invalid Interpretation Code [facility] Comment on above: Result Comment: Not infected with HCV unless early or acute infection is suspected (which may be delayed in an immunocompromised individual), or other evidence exists to indicate HCV infection. Performed at: [facility] [id number] [place], [place] [id number] PhD Mariama Zaman Performed By: #### 2 [id number], 96856789, 173706544, 4155454657, 778245741, 107727676, 2158679, 4079434, 5040177 #### [facility] [address] [place] [address] HCV Antibody RFX to Quant PC Johnny 01-12-2023 HCV IgG IA Ql Non-Reactive Invalid Interpretation Code Non Reactive [facility] Comment on above: Result Comment: Perf ormed at: [address] [id number] PhD Mariama Zaman Performed By: #### 2 [id number], 67509889, 509431388, 4035719918, 352594685, 842642877, 6708655, 7909291, 2963424 #### [facility] [address] [place] [address] HIV Screen 4th Generation wR fxon 01-12-2023 HIV 1+2 Ab+HIV1 p24 Ag IA Ql Non-Reactive Invalid Interpretation Code Non Reactive [facility] Comment on above: Result Comment: HIV Negative HIV-1/HIV-2 antibodies and HIV-1 p24 antigen were NOT detected. There is no laboratory evidence of HIV infection. Performed at: [address] [id number] PhD Mariama Zaman Performed By: #### 2 [id number], 39817709, 673776587, 9687994679, 788434193, 979615544, 1366073, 5523772, 9368875 #### [facility] [address] [place] [address] Hep Bs Agon 01-12-2023 HBV surface Ag IA Ql Negative Invalid Interpretation Code Negative [facility] Comment on above: Result Comment: Perf ormed at: [address] [id number] PhD Mariama Zaman Performed By: #### 2 [id number], 70930484, 514390312, 5110032071, 922169969, 295659697, 2730515, 1788837, 9436128 #### [facility] [address] [place] [address] RPR with Conf Rfxon 01-13-20 23 Reagin Ab RPR Ql (S) Non-Reactive Invalid Interpretation Code Non Reactive [facility] Comment on above: Result Comment: Perf ormed at: [address] [id number] [id number] PhD Mariama Zaman Performed By: #### 2 [id number], 90676215, 668203108, 7220926869, 188213983, 606404132, 5809292, 9722456, 4560931 #### [facility] [address] [place] [address] Rubella IgGon 01-12-2023 Rubella virus IgG Qn (S) 5.68 [IU]/mL Invalid Interpretation Code Immune >0.99 [facility] Comment on above: Result Comment: Non- immune <0.90 Equivocal 0.90 - 0.99 Immune >0.99 Performed at: [address] [id number] PhD Mariama Zaman Performed By: #### 2 [id number], 16041035, 052086108, 2644477024, 659442240, 514544791, 1589665, 2473073, 1717343 #### [facility] [address] [place] [address] ABO/Rhon 01-11-2023 ABO/Rh Positive Invalid Interpretation Code [facility] Comment on above: Performed By: #### 2 [id number], 02471508, 646962259, 3630624672, 050223592, 724482641, 4082264, 9551347, 4247695 #### [facility] [address] [place] [address] ABSCon 01-11-2023 ABSC Gel Interp Negative Normal [facility] Comment on above: Performed By: #### 2 [id number], 84553211, 732178201, 5068224929, 790291393, 148393501, 0153635, 6611675, 3799630 #### [facility] [address] [place] [address] BLOOD BANKOrdered By: Dylan Lemons on 01-11-2023 ABO/Rh Interp Positive Invalid Interpretation Code FT BB Subsection ABSC Gel Interp Negative (01/11/23 10:00 AM) Normal [facility] BB Subsection CBC w/IndicesOrdered By: López Jorgensen on 01-11-2023 Erythrocyte distribution width (RBC) [Ratio] 13.4 % Normal 10.9-14.2 [facility] Comment on above: Performed By: #### 2 [id number], 83451808, 846103118, 2085124348, 824076806, 131122893, 0151678, 0880746, 9571737 #### [facility] [address] [place] [address] Hematocrit (Bld) [Volume fraction] 34.4 % [facility] Comment on above: Performed By: #### 2 [id number], 61069177, 904616267, 5446551992, 860970550, 580328257, 1621888, 4363621, 6696129 #### [facility] [address] [place] [address] Hemoglobin (Bld) [Mass/Vol] 11.7 g/dL [facility] Comment on above: Performed By: #### 2 [id number], 45497744, 217806797, 7236956996, 179798203, 131856279, 3276064, 4533870, 3656699 #### [facility] [address] [place] [address] MCH (RBC) [Entitic mass] 31.7 pg Normal 27.0-34.0 [facility] Comment on above: Performed By: #### 2 662252443, 62833897, 657450567, 0884286937, 271548833, 230237335, 5359991, 0805305, 7701141 #### [facility] [address] [place] [address] MCHC (RBC) [Mass/Vol] 33.9 g/dL Normal 31.4-36.0 [facility] Comment on above: Performed By: #### 2 [id number], 21605299, 746927931, 1333935115, 637791068, 577084280, 8425384, 7912185, 4831626 #### [facility] [address] [place] [address] MCV (RBC) [Entitic vol] 93.3 fL Normal 80.0-100.0 [facility] Comment on above: Performed By: #### 2 785894335, 60757756, 975367523, 4793854438, 689413707, 671065249, 7166484, 4977571, 4956976 #### [facility] [address] [place] [address] Platelet mean volume (Bld) [Entitic vol] 8.0 fL Normal 6.4-10.8 [facility] Comment on above: Performed By: #### 2 822313930, 28471181, 581888886, 5181173002, 908030076, 808338708, 3890110, 9581568, 9769449 #### [facility] [address] [place] [address] Platelets (Bld) [#/Vol] 171.0 E9/L Normal 150.0-500.0 [facility] Comment on above: Performed By: #### 2 377564304, 43832426, 899755302, 5946766515, 455965742, 384045724, 5433733, 8234240, 1213534 #### [facility] [address] [place] [address] RBC (Bld) [#/Vol] 3.7 E12/L Low 4.3-5.9 [facility] Comment on above: Performed By: #### 2 791526095, 53560868, 698313675, 5595200783, 526015616, 340371498, 6605956, 5376541, 7723338 #### [facility] [address] [place] [address] WBC corrected for nucl RBC Auto (Bld) [#/Vol] 11.7 E9/L High 4.0-11.0 [facility] Comment on above: Performed By: #### 2 461902200, 98040809, 181321256, 9861535352, 927158353, 089550075, 6307690, 9402376, 9369961 #### [facility] [address] [place] [address] CBC without diffon Platelets (Bld) [#/Vol] 171 10*3/uL [facility] Consent for Treatmenton Consent for Treatment [id number] .00TIFF Normal [facility] HIV 1&2 AB/AG Screen (P24 AG )on 01-11-2023 HIV 1&2 AB/AG Non-Reactive [facility] Hepatitis B surface antigeno n 01-11-2023 Hepatitis B Surface Antigen Negative [facility] Hepatitis C(HCV) Ab w/ Refle x to PCRon 01-11-2023 HCV Ab Ql (S) Non-Reactive [facility] CopL5sCuolmxr By: Liliana Dumont on 01-11-2023 HbA1c (Bld) [Mass fraction] 4.9 % Normal <=5.9 [facility] Comment on above: Performed By: #### 2 [id number], 26243018, 363236799, 9001527598, 769768511, 374749898, 1061765, 4042910, 1067952 #### [facility] [address] [place] [address] No Panel Informationon 01-11 [facility] Physician Orderon 01-11-2023 Physician Order [id number] .00TIFF Normal [facility] Rubella IGG immune statuson 01-11-2023 Rubella immune IgG 5.68 [facility] Syphilis Total(Unknown Syphi lis Status)on 01-11-2023 Syphilis Non-Reactive [facility] TSHon 01-11-2023 Thyroid Stimulating (3Rd Generation) Hormone/ Tsh 1.30 [facility] TSHOrdered By: SYSTEM SYSTEM on 01-11-2023 TSH Qn 1.30 m[IU]/L Normal 0.34-5.60 [facility] Remisol Comment on above: Performed By: #### 2 [id number], 51315707, 240471836, 8172983799, 696785404, 303630341, 9378020, 7314083, 4289894 #### [facility] [address] [place] [address] Type and screenon 01-11-2023 Abo/Rh(D) Positive [employer] [facility] Basic Metabolic Panelon 07-13 Calcium [Mass/Vol] 9.1 mg/dL Normal 8.5-9.9 [facility] Comment on above: Performed By: #### C BCWD #### [facility] [address] [place] [address] Chloride [Moles/Vol] 105 mmol/L Normal 95-107 [facility] Comment on above: Performed By: #### C BCWD #### [facility] [address] [place] [address] CO2 [Moles/Vol] 22 mmol/L Normal 20-31 [facility] Comment on above: Performed By: #### C BCWD #### [facility] [address] [place] [address] Creatinine [Mass/Vol] 0.59 mg/dL Normal 0.50-0.90 [facility] Comment on above: Performed By: #### C BCWD #### [facility] [address] [place] [address] GFR >60.0 Normal >60 [facility] Comment on above: Result Comment: [...] secretion. Performed By: #### C BCWD #### [facility] [address] [place] [address] Glucose [Mass/Vol] 110 mg/dL Critically high 70-99 M [facility] Comment on above: Performed By: #### C BCWD #### [facility] [address] [place] [address] Potassium [Moles/Vol] 4.0 mmol/L Normal 3.4-4.9 [facility] Comment on above: Performed By: #### C BCWD #### [facility] [address] [place] [address] Sodium [Moles/Vol] 139 mmol/L Normal 135-144 [facility] Comment on above: Performed By: #### C BCWD #### [facility] [address] [place] [address] Urea nitrogen [Mass/Vol] 12 mg/dL Normal 6-20 [facility] Comment on above: Performed By: #### C BCWD #### [facility] [address] [place] [address] Anion gap [Moles/Vol] 12 mmol/L Normal 9-15 [facility] Comment on above: Performed By: #### C BCWD #### [facility] [address] [place] [address] CBC With Platelet and Differ entialon 07-31-2022 Abs Imm Granulocytes 0.0 K/uL Normal [facility] Comment on above: Performed By: #### C BCWD #### [facility] [address] [place] [address] Basophils (Bld) [#/Vol] 0.0 10*3/uL Normal 0.0-0.1 [facility] Comment on above: Performed By: #### C BCWD #### [facility] [address] [place] [address] Basophils/100 WBC (Bld) 0.4 % Normal 0.1-1.2 [facility] Comment on above: Performed By: #### C BCWD #### [facility] [address] [place] [address] Eosinophils (Bld) [#/Vol] 0.2 10*3/uL Normal 0.0-0.4 [facility] Comment on above: Performed By: #### C BCWD #### [facility] [address] [place] [address] Eosinophils/100 WBC (Bld) 2.6 % Normal 0.7-5.8 [facility] Comment on above: Performed By: #### C BCWD #### [facility] [address] [place] [address] Erythrocyte distribution width (RBC) [Ratio] 12.6 % Normal 11.7-14.4 [facility] Comment on above: Performed By: #### C BCWD #### [facility] [address] [place] [address] Hematocrit (Bld) [Volume fraction] 39.6 % Normal 37.0-47.0 [facility] Comment on above: Performed By: #### C BCWD #### [facility] [address] [place] [address] Hemoglobin (Bld) [Mass/Vol] 13.5 g/dL Normal 11.2-15.7 [facility] Comment on above: Performed By: #### C BCWD #### [facility] [address] [place] [address] Imm Granulocytes 0.3 % Normal [facility] Comment on above: Performed By: #### C BCWD #### [facility] [address] [place] [address] Lymphocytes (Bld) [#/Vol] 1.8 10*3/uL Normal 1.2-3.7 [facility] Comment on above: Performed By: #### C BCWD #### [facility] [address] [place] [address] Lymphocytes/100 WBC (Bld) 25.0 % Normal [facility] Comment on above: Performed By: #### C BCWD #### [facility] [address] [place] [address] MCH (RBC) [Entitic mass] 31.9 pg Normal 25.6-32.2 [facility] Comment on above: Performed By: #### C BCWD #### [facility] [address] [place] [address] MCHC 34.1 % Normal 32.2-35.5 [facility] Comment on above: Performed By: #### C BCWD #### [facility] [address] [place] [address] MCV (RBC) [Entitic vol] 93.6 fL Normal 79.4-94.8 [facility] Comment on above: Performed By: #### C BCWD #### [facility] [address] [place] [address] Monocytes (Bld) [#/Vol] 0.4 10*3/uL Normal 0.2-0.9 [facility] Comment on above: Performed By: #### C BCWD #### [facility] [address] [place] [address] Monocytes/100 WBC (Bld) 5.7 % Normal 4.7-12.5 [facility] Comment on above: Performed By: #### C BCWD #### [facility] [address] [place] [address] Neutrophils (Bld) [#/Vol] 4.9 10*3/uL Normal 1.6-6.1 [facility] Comment on above: Performed By: #### C BCWD #### [facility] [address] [place] [address] Neutrophils/100 WBC (Bld) 66.0 % Normal 34.0-71.1 [facility] Comment on above: Performed By: #### C BCWD #### [facility] [address] [place] [address] Platelets (Bld) [#/Vol] 193 10*3/uL Normal 182-369 [facility] Comment on above: Performed By: #### C BCWD #### [facility] [address] [place] [address] RBC (Bld) [#/Vol] 4.23 10*6/uL Normal 3.93-5.22 [facility] Comment on above: Performed By: #### C BCWD #### [facility] [address] [place] [address] WBC (Bld) [#/Vol] 7.4 10*3/uL Normal 4.0-10.0 [facility] Comment on above: Performed By: #### C BCWD #### [facility] [address] [place] [address] UR HCG Qualitativeon 023 Beta HCG ( test) Ql (U) Negative Normal Detects HC [facility] Comment on above: Performed By: #### C BCWD #### [facility] [address] [place] [address] Urinalysis, reflex to cultur minoo 07-31-2022 Urine Reflexed to Culture Not Indicated Normal [facility] Comment on above: Performed By: #### U AR #### [facility] [address] [place] [address] Bilirubin Ql (U) Negative Normal Negative [facility] Comment on above: Performed By: #### U AR #### [facility] [address] [place] [address] Clarity (U) Clear Normal Clear [facility] Comment on above: Performed By: #### U AR #### [facility] [address] [place] [address] Color (U) Yellow Normal Straw/[place]wall [facility] Comment on above: Performed By: #### U AR #### [facility] [address] [place] [address] Glucose Ql (U) Negative Normal Negative [facility] Comment on above: Performed By: #### U AR #### [facility] [address] [place] [address] Hemoglobin Ql (U) Large Normal Negative [facility] Comment on above: Performed By: #### U AR #### [facility] [address] [place] [address] Ketones Ql (U) Negative Normal Negative [facility] Comment on above: Performed By: #### U AR #### [facility] [address] [place] [address] Leukocyte esterase Test strip Ql (U) Negative Normal Negative [facility] Comment on above: Performed By: #### U AR #### [facility] [address] [place] [address] Nitrite Ql (U) Negative Normal Negative [facility] Comment on above: Performed By: #### U AR #### [facility] [address] [place] [address] pH (U) 5.5 [pH] Normal 5.0-9.0 [facility] Comment on above: Performed By: #### U AR #### [facility] [address] [place] [address] Protein Ql (U) Negative Normal Negative [facility] Comment on above: Performed By: #### U AR #### [facility] [address] [place] [address] Specific gravity (U) [Rel density] 1.015 Normal 1.005-1.03 [facility] Comment on above: Performed By: #### U AR #### [facility] [address] [place] [address] Urobilinogen Qn (U) 0.2 {Ginger'U}/dL Normal < 2.0 [facility] Comment on above: Performed By: #### U AR #### [facility] [address] [place] [address] Urine Microscopicon 08-01-19 23 Epithelial cells LM Ql (Urine sed) 3-5 Normal [facility] Comment on above: Performed By: #### U KAREEM #### [facility] [address] [place] [address] Urine Bacteria FEW Abnormal Negative [facility] Comment on above: Performed By: #### U KAREEM #### [facility] [address] [place] [address] Urine RBC 5-10 Abnormal 0-2 [facility] Comment on above: Performed By: #### U KAREEM #### [facility] [address] [place] [address] Urine WBC 0-2 Normal 0-5 [facility] Comment on above: Performed By: #### U KAREEM #### [facility] [address] [place] [address] Culture, Throaton 04-11-2022 Culture, Throat ORDER#: [id number] ORDERED BY: LILIANA CARROLL SOURCE: Throat Throat COLLECTED: 04/11/22 17:53 ANTIBIOTICS AT [facility].: RECEIVED : 04/11/22 21:00 Culture, Throat FINAL 04/14/22 10:27 Cult,Throat: Oral to, negative for Group A Strep and other beta Cult,Throat: hemolytic streptococci Performed at [address] [address] ([phone] Normal [facility] Comment on above: Performed By: #### C BCWD #### [facility] [address] [place] [address] XR SHOULDER LEFT (MIN 2 VIEW S)on [...] Vitor Riojas MD 11/29/21 Final result Normal [facility] Bacterial susceptibility hager el by Christin 10-28-2021 Bacterial susceptibility panel KAREEM ([facility]) ORDER#: [id number] ORDERED BY: SPRING OROZCO SOURCE: Incision COLLECTED: 10/28/21 16:45 ANTIBIOTICS AT [facility].: RECEIVED : 10/28/21 22:09 Culture, Wound Aerobic, Anaerobic FINAL 11/03/21 07:50 Direct Exam: NO NEUTROPHILS SEEN Direct Exam: NO BACTERIA SEEN Cult,Aerobe/Anaerobe: Mixed skin to Cult,Aerobe/Anaerobe: No anaerobic organisms isolated at 5 days. Performed at [address] [address] Acinetobacter species LIGHT GROWTH Acinetobacter baumannii LIGHT GROWTH Acineto sp. A. baumannii ANTIBIOTICS KAREEM Interp KAREEM Interp Ampicillin/Sulbactam <=2 S >=32 R Ceftriaxone 16 I 16 I Ciprofloxacin <=0.25 S <=0.25 S Gentamicin <=1 S <=1 S Tobramycin <=1 S <=1 S S=SUSCEPTIBLE I=INTERMEDIATE R=RESISTANT Normal [facility] Comment on above: Performed By: #### 5 0545-3 #### [facility] [address] [place] [address] Bacterial susceptibility panel KAREEM ([facility]) ORDER#: [id number] ORDERED BY: SPRING OROZCO SOURCE: Incision COLLECTED: 10/28/21 16:45 ANTIBIOTICS AT [facility].: RECEIVED : 10/28/21 22:09 Culture, Wound Aerobic, Anaerobic PRELIM 11/03/21 07:15 Direct Exam: NO NEUTROPHILS SEEN Direct Exam: NO BACTERIA SEEN Cult,Aerobe/Anaerobe: Mixed skin to Cult,Aerobe/Anaerobe: No anaerobic organisms isolated at 5 days. Performed at [facility] [address] [facility], [place] [id number] ([phone] Acinetobacter species LIGHT GROWTH Acineto sp. ANTIBIOTICS KAREEM Interp Ampicillin/Sulbactam <=2 S Ceftriaxone 16 I Ciprofloxacin <=0.25 S Gentamicin <=1 S Tobramycin <=1 S S=SUSCEPTIBLE I=INTERMEDIATE R=RESISTANT Normal [facility] Comment on above: Performed By: #### C BCWD #### [facility] [address] [place] [address] CBC With Platelet and Differ entialon 10-28-2021 Abs Imm Granulocytes 0.0 K/uL Normal [facility] Comment on above: Performed By: #### C BCWD #### [facility] [address] [place] [address] Basophils (Bld) [#/Vol] 0.0 10*3/uL Normal 0.0-0.1 [facility] Comment on above: Performed By: #### C BCWD #### [facility] [address] [place] [address] Basophils/100 WBC (Bld) 0.1 % Normal 0.1-1.2 [facility] Comment on above: Performed By: #### C BCWD #### [facility] [address] [place] [address] Eosinophils (Bld) [#/Vol] 0.3 10*3/uL Normal 0.0-0.4 [facility] Comment on above: Performed By: #### C BCWD #### [facility] [address] [place] [address] Eosinophils/100 WBC (Bld) 3.1 % Normal 0.7-5.8 [facility] Comment on above: Performed By: #### C BCWD #### [facility] [address] [place] [address] Erythrocyte distribution width (RBC) [Ratio] 12.8 % Normal 11.7-14.4 [facility] Comment on above: Performed By: #### C BCWD #### [facility] [address] [place] [address] Hematocrit (Bld) [Volume fraction] 40.9 % Normal 37.0-47.0 [facility] Comment on above: Performed By: #### C BCWD #### [facility] [address] [place] [address] Hemoglobin (Bld) [Mass/Vol] 13.6 g/dL Normal 11.2-15.7 [facility] Comment on above: Performed By: #### C BCWD #### [facility] [address] [place] [address] Imm Granulocytes 0.2 % Normal [facility] Comment on above: Performed By: #### C BCWD #### [facility] [address] [place] [address] Lymphocytes (Bld) [#/Vol] 1.8 10*3/uL Normal 1.2-3.7 [facility] Comment on above: Performed By: #### C BCWD #### [facility] [address] [place] [address] Lymphocytes/100 WBC (Bld) 16.5 % Normal [facility] Comment on above: Performed By: #### C BCWD #### [facility] [address] [place] [address] MCH (RBC) [Entitic mass] 31.1 pg Normal 25.6-32.2 [facility] Comment on above: Performed By: #### C BCWD #### [facility] [address] [place] [address] MCHC 33.3 % Normal 32.2-35.5 [facility] Comment on above: Performed By: #### C BCWD #### [facility] [address] [place] [address] MCV (RBC) [Entitic vol] 93.4 fL Normal 79.4-94.8 [facility] Comment on above: Performed By: #### C BCWD #### [facility] [address] [place] [address] Monocytes (Bld) [#/Vol] 0.6 10*3/uL Normal 0.2-0.9 [facility] Comment on above: Performed By: #### C BCWD #### [facility] [address] [place] [address] Monocytes/100 WBC (Bld) 5.2 % Normal 4.7-12.5 [facility] Comment on above: Performed By: #### C BCWD #### [facility] [address] [place] [address] Neutrophils (Bld) [#/Vol] 7.9 10*3/uL Critically high 1.6-6.1 [facility] Comment on above: Performed By: #### C BCWD #### [facility] [address] [place] [address] Neutrophils/100 WBC (Bld) 74.9 % Critically high 34.0-71.1 [facility] Comment on above: Performed By: #### C BCWD #### [facility] [address] [place] [address] Platelets (Bld) [#/Vol] 192 10*3/uL Normal 182-369 [facility] Comment on above: Performed By: #### C BCWD #### [facility] [address] [place] [address] RBC (Bld) [#/Vol] 4.38 10*6/uL Normal 3.93-5.22 [facility] Comment on above: Performed By: #### C BCWD #### [facility] [address] [place] [address] WBC (Bld) [#/Vol] 10.6 10*3/uL Critically high 4.0-10.0 [facility] Comment on above: Performed By: #### C BCWD #### [facility] [address] [place] [address] CBC with Auto Differentialon 10-28-2021 Basophils (Bld) [#/Vol] 0.0 10*3/uL 0 - 0.1 K/uL [facility] Basophils/100 WBC (Bld) 0.1 % 0.1 - 1.2 % [facility] Eosinophils (Bld) [#/Vol] 0.3 10*3/uL 0 - 0.4 K/uL [facility] Eosinophils/100 WBC (Bld) 3.1 % 0.7 - 5.8 % [facility] Hematocrit (Bld) [Volume fraction] 40.9 % 37 - 47 % [facility] Hemoglobin (Bld) [Mass/Vol] 13.6 g/dL 11.2 - 15.7 g/dL [facility] Immature granulocytes (Bld) [#/Vol] 0.0 10*3/uL [facility] Immature granulocytes/100 WBC (Bld) 0.2 % [facility] Interpretation and review of laboratory results Abnormal [facility] Lymphocytes (Bld) [#/Vol] 1.8 10*3/uL 1.2 - 3.7 K/uL [facility] Lymphocytes/100 WBC (Bld) 16.5 % [facility] MCH (RBC) [Entitic mass] 31.1 pg 25.6 - 32.2 pg [facility] MCHC (RBC) [Mass/Vol] 33.3 % 32.2 - 35.5 % [facility] MCV (RBC) [Entitic vol] 93.4 fL 79.4 - 94.8 fL [facility] Monocytes (Bld) [#/Vol] 0.6 10*3/uL 0.2 - 0.9 K/uL [facility] Monocytes/100 WBC (Bld) 5.2 % 4.7 - 12.5 % [facility] Neutrophils Absolute 7.9 K/uL High 1.6 - 6 .1 K/uL [facility] Neutrophils/100 WBC (Bld) 74.9 % High 34 - 71.1 % [facility] Platelet distribution width (Bld) [Ratio] 12.8 % 11.7 - 14.4 % [facility] Platelets (Bld) [#/Vol] 192 10*3/uL 182 - 369 K/uL [facility] RBC (Bld) [#/Vol] 4.38 10*6/uL [facility] WBC (Bld) [#/Vol] 10.6 10*3/uL High 4 - 10 K/uL [facility] CT ABDOMEN PELVIS W [...] Melodie Ocampo MD 10/28/21 Final result Normal [facility] CT ABDOMEN PELVIS W IV CONTR AST Additional Contrast? Noneon 10-28-2021 No acute abdominopelvic abnormality. [facility] RADIOLOGY EXAMINATION: CT OF [...] stranding or fluid at the surgical site. [facility] RADIOLOGY Melodie Ocampo MD [...] surgical site. IMPRESSION: No acute abdominopelvic abnormality. [facility]: Radiology Study observation (narrative) [facility] [employer] Phone: CT ABDOMEN PELVIS W IV CONTR AST Additional Contrast? NoneOrdered By: Melodie Ocampo on 10-28-2021 [facility] [employer] Phone: Comprehensive Metabolic Pane l reflex Mgon 10-28-2021 Albumin [Mass/Vol] 4.4 g/dL Normal 3.5-4.6 [facility] Comment on above: Performed By: #### C MPX #### [facility] [address] [place] [address] ALP [Catalytic activity/Vol] 118 U/L Normal 40-130 [facility] Comment on above: Performed By: #### C MPX #### [facility] [address] [place] [address] ALT [Catalytic activity/Vol] 6 U/L Normal 0-33 [facility] Comment on above: Performed By: #### C MPX #### [facility] [address] [place] [address] Anion gap [Moles/Vol] 11 mmol/L Normal 9-15 [facility] Comment on above: Performed By: #### C MPX #### [facility] [address] [place] [address] AST [Catalytic activity/Vol] 8 U/L Normal 0-35 [facility] Comment on above: Performed By: #### C MPX #### [facility] [address] [place] [address] Bilirubin [Mass/Vol] 0.4 mg/dL Normal 0.2-0.7 [facility] Comment on above: Performed By: #### C MPX #### [facility] [address] [place] [address] Calcium [Mass/Vol] 9.7 mg/dL Normal 8.5-9.9 [facility] Comment on above: Performed By: #### C MPX #### [facility] [address] [place] [address] Chloride [Moles/Vol] 104 mmol/L Normal 95-107 [facility] Comment on above: Performed By: #### C MPX #### [facility] [address] [place] [address] CO2 [Moles/Vol] 23 mmol/L Normal 20-31 [facility] Comment on above: Performed By: #### C MPX #### [facility] [address] [place] [address] Creatinine [Mass/Vol] 0.60 mg/dL Normal 0.50-0.90 [facility] Comment on above: Performed By: #### C MPX #### [facility] [address] [place] [address] GFR >60.0 Normal >60 [facility] Comment on above: Result Comment: >60 mL/min/1.73m2 EGFR, calc. for ages 18 and older using the MDRD formula (not corrected for weight), is valid for stable renal function. Performed By: #### C MPX #### [facility] [address] [place] [address] GFR/1.73 sq M.predicted among blacks MDRD (S/P/Bld) [Vol rate/Area] mL/min/{1.73_m2} Normal >60 [facility] Comment on above: Result Comment: >60 mL/min/1.73m2 EGFR, calc. for ages 18 and older using the MDRD formula (not corrected for weight), is valid for stable renal function. Performed By: #### C MPX #### [facility] [address] [place] [address] Globulin (S) [Mass/Vol] 3.1 g/dL Normal 2.3-3.5 [facility] Comment on above: Performed By: #### C MPX #### [facility] [address] [place] [address] Glucose [Mass/Vol] 95 mg/dL Normal 70-99 [facility] Comment on above: Performed By: #### C MPX #### [facility] [address] [place] [address] Magnesium [Moles/Vol] 4.2 mmol/L Normal 3.4-4.9 [facility] Comment on above: Performed By: #### C MPX #### [facility] [address] [place] [address] Protein [Mass/Vol] 7.5 g/dL Normal 6.3-8.0 [facility] Comment on above: Performed By: #### C MPX #### [facility] [address] [place] [address] Sodium [Moles/Vol] 138 mmol/L Normal 135-144 [facility] Comment on above: Performed By: #### C MPX #### [facility] [address] [place] [address] Urea nitrogen [Mass/Vol] 14 mg/dL Normal 6-20 [facility] Comment on above: Performed By: #### C MPX #### [facility] [address] [place] [address] Comprehensive Metabolic Pane l w/ Reflex to MGon 10-28-2021 Albumin [Mass/Vol] 4.4 g/dL 3.5 - 4.6 g/dL [facility] ALP (Bld) [Catalytic activity/Vol] 118 U/L 40 - 130 U/L [facility] ALT [Catalytic activity/Vol] 6 U/L 0 - 33 U/L [facility] Anion gap [Moles/Vol] 11 mmol/L [facility] AST [Catalytic activity/Vol] 8 U/L 0 - 35 U/L [facility] Bilirubin [Mass/Vol] 0.4 mg/dL 0.2 - 0 .7 mg/dL [facility] Calcium [Mass/Vol] 9.7 mg/dL 8.5 - 9.9 mg/dL [facility] Chloride [Moles/Vol] 104 mmol/L [facility] CO2 [Moles/Vol] 23 mmol/L [facility] Creatinine [Mass/Vol] 0.6 mg/dL 0.5 - 0.9 mg/dL [facility] Free PSA/Total PSA [Mass fraction] 7.5 g/dL 6.3 - 8 g/dL [facility] GFR >60.0 60 - PINF [facility] Comment on above: >60 mL/min/1.73m2 EG FR, calc. for ages 18 and older using the MDRD formula (not corrected for weight), is valid for stable renal function. GFR Non- >60.0 60 - PINF [facility] Comment on above: >60 mL/min/1.73m2 EG FR, calc. for ages 18 and older using the MDRD formula (not corrected for weight), is valid for stable renal function. Globulin (S) [Mass/Vol] 3.1 g/dL 2.3 - 3.5 g/dL [facility] Glucose [Mass/Vol] 95 mg/dL 70 - 99 mg/dL [facility] Potassium reflex Magnesium 4.2 [facility] Sodium [Moles/Vol] 138 mmol/L [facility] Urea nitrogen (BldV) [Mass/Vol] 14 mg/dL 6 - 20 mg/dL [facility] Culture, Wound AerobicShen 10-28-2021 Culture, Wound Aerobic, Anaerobic ORDER#: [id number] ORDERED BY: SPRING OROZCO SOURCE: Incision COLLECTED: 10/28/21 16:45 ANTIBIOTICS AT [facility].: RECEIVED : 10/28/21 22:09 Culture, Wound Aerobic, Anaerobic PRELIM 11/01/21 08:12 Direct Exam: NO NEUTROPHILS SEEN Direct Exam: NO BACTERIA SEEN Cult,Aerobe/Anaerobe: GRAM NEGATIVE RODS Cult,Aerobe/Anaerobe: LIGHT GROWTH Cult,Aerobe/Anaerobe: Mixed skin to Cult,Aerobe/Anaerobe: No anaerobic organisms isolated at 3 days. Performed at [address] [address] Normal [facility] Comment on above: Performed By: #### I CWAN #### [facility] [address] [facility] [id number] , Urineon 2 Beta HCG ( test) Ql (U) Negative Detects HCG level >20 MIU/mL [facility] UR HCG Qualitativeon 022 Beta HCG ( test) Ql (U) Negative Normal Detects HC [facility] Comment on above: Performed By: #### C BCWD #### [facility] [address] [facility] [address] Urinalysis with Reflex to Cu ltureon 10-28-2021 Bilirubin Urine Negative Negative [facility] Blood, Urine Negative Negative [facility] Clarity, UA Clear Clear [facility] Color, UA Yellow Straw/Yellow [facility] Glucose, Ur Negative Negative mg/dL [facility] Ketones Ql (U) Negative Negative mg/dL [facility] Leukocyte esterase Test strip Ql (U) Negative Negative [facility] Nitrite, Urine Negative Negative [facility] pH, UA 5.5 5 - 9 [facility] Protein, UA Negative Negative mg/dL [facility] Specific [place], UA 1.015 1.005 - 1.03 [facility] Urine Reflex to Culture Not Indicated [facility] Urobilinogen, Urine 0.2 NINF [facility] Urinalysis, reflex to cultur minoo 10-28-2021 Bilirubin Ql (U) Negative Normal Negative [facility] Comment on above: Performed By: #### U AR #### [facility] [address] [place] [address] Clarity (U) Clear Normal Clear [facility] Comment on above: Performed By: #### U AR #### [facility] [address] [place] [address] Color (U) Yellow Normal Straw/[place] [facility] Comment on above: Performed By: #### U AR #### [facility] [address] [place] [address] Glucose Ql (U) Negative Normal Negative [facility] Comment on above: Performed By: #### U AR #### [facility] [address] [place] [address] Hemoglobin Ql (U) Negative Normal Negative [facility] Comment on above: Performed By: #### U AR #### [facility] [address] [place] [address] Ketones Ql (U) Negative Normal Negative [facility] Comment on above: Performed By: #### U AR #### [facility] [address] [place] [address] Leukocyte esterase Test strip Ql (U) Negative Normal Negative [facility] Comment on above: Performed By: #### U AR #### [facility] [address] [place] [address] Nitrite Ql (U) Negative Normal Negative [facility] Comment on above: Performed By: #### U AR #### [facility] [address] [place] [address] pH (U) 5.5 [pH] Normal 5.0-9.0 [facility] Comment on above: Performed By: #### U AR #### [facility] [address] [place] [address] Protein Ql (U) Negative Normal Negative [facility] Comment on above: Performed By: #### U AR #### [facility] [address] [place] [address] Specific gravity (U) [Rel density] 1.015 Normal 1.005-1.03 [facility] Comment on above: Performed By: #### U AR #### [facility] [address] [facility] [address] Urine Reflexed to Culture Not Indicated Normal [facility] Comment on above: Performed By: #### U AR #### [facility] [address] [place] [address] Urobilinogen Qn (U) 0.2 {Ginger'U}/dL Normal < 2.0 [facility] Comment on above: Performed By: #### U AR #### [facility] [address] [facility] [address] Allergen, Food, Comprehensiv e Profile 08-31-2021 Allergen, Food, Barley IgE <0.10 Normal [facility] Allergen, Food, Beef IgE <0.10 [facility] Allergen, Food, Cabbage <0.10 [facility] Allergen, Food, Carrot <0.10 [facility] Allergen, Food, Chicken <0.10 [facility] Allergen, Food, Codfish IgE <0.10 [facility] Allergen, Food, Ralph IgE <0.10 Normal [facility] Allergen, Food, Crab IgE <0.10 [facility] Allergen, Food, Egg White <0.10 [facility] Allergen, Food, Grape IgE <0.10 [facility] Allergen, Food, Lettuce IgE <0.10 Normal [facility] Allergen, Food, Milk (Cow) IgE <0.10 Normal [facility] Allergen, Food, [place] <0.10 [facility] Allergen, Food, Oat IgE <0.10 [facility] Allergen, Food, [place] IgE <0.10 Normal [facility] Allergen, Food, Peanut IgE <0.10 [facility] Allergen, Food, Pepper C. annuum IgE <0.10 Normal [facility] Allergen, Food, Pork IgE <0.10 Normal [facility] Comment on above: Result Comment: [facility] [address] [place], [place] [id number] ([phone] Allergen, Food, Potato <0.10 Normal [facility] Allergen, Food, Rice IgE <0.10 Normal [facility] Allergen, Food, [place] IgE <0.10 Normal [facility] Allergen, Food, Shrimp IgE <0.10 Normal [facility] Allergen, Food, Soybean IgE <0.10 Normal [facility] Allergen, Food, Tomato IgE <0.10 Normal [facility] Allergen, Food, Tuna IgE <0.10 Normal [facility] Allergen, Food, Wheat IgE <0.10 Normal [facility] Comment on above: Result Comment: ALLERGEN, [...] even anaphylaxis. Immunoglobulin E 53 IU/mL Normal [facility] Comment on above: Result Comment: [facility] [address] [place], [place] [id number] ([phone] CBC With Platelet and Differ entialon 08-21-2021 Abs Imm Granulocytes 0.0 K/uL Normal [facility] Comment on above: Performed By: #### C BCWD #### [facility] [address] [place] [address] Basophils (Bld) [#/Vol] 0.0 10*3/uL Normal 0.0-0.1 [facility] Comment on above: Performed By: #### C BCWD #### [facility] [address] [place] [address] Basophils/100 WBC (Bld) 0.3 % Normal 0.1-1.2 [facility] Comment on above: Performed By: #### C BCWD #### [facility] [address] [place] [address] Eosinophils (Bld) [#/Vol] 0.2 10*3/uL Normal 0.0-0.4 [facility] Comment on above: Performed By: #### C BCWD #### [facility] [address] [place] [address] Eosinophils/100 WBC (Bld) 2.4 % Normal 0.7-5.8 [facility] Comment on above: Performed By: #### C BCWD #### [facility] [address] [place] [address] Erythrocyte distribution width (RBC) [Ratio] 12.6 % Normal 11.7-14.4 [facility] Comment on above: Performed By: #### C BCWD #### [facility] [address] [place] [address] Hematocrit (Bld) [Volume fraction] 41.7 % Normal 37.0-47.0 [facility] Comment on above: Performed By: #### C BCWD #### [facility] [address] [place] [address] Hemoglobin (Bld) [Mass/Vol] 13.6 g/dL Normal 11.2-15.7 [facility] Comment on above: Performed By: #### C BCWD #### [facility] [address] [place] [address] Imm Granulocytes 0.3 % Normal [facility] Comment on above: Performed By: #### C BCWD #### [facility] [address] [place] [address] Lymphocytes (Bld) [#/Vol] 2.2 10*3/uL Normal 1.2-3.7 [facility] Comment on above: Performed By: #### C BCWD #### [facility] [address] [place] [address] Lymphocytes/100 WBC (Bld) 25.3 % Normal [facility] Comment on above: Performed By: #### C BCWD #### [facility] [address] [place] [address] MCH (RBC) [Entitic mass] 30.8 pg Normal 25.6-32.2 [facility] Comment on above: Performed By: #### C BCWD #### [facility] [address] [place] [address] MCHC 32.6 % Normal 32.2-35.5 [facility] Comment on above: Performed By: #### C BCWD #### [facility] [address] [place] [address] MCV (RBC) [Entitic vol] 94.6 fL Normal 79.4-94.8 [facility] Comment on above: Performed By: #### C BCWD #### [facility] [address] [place] [address] Monocytes (Bld) [#/Vol] 0.4 10*3/uL Normal 0.2-0.9 [facility] Comment on above: Performed By: #### C BCWD #### [facility] [address] [place] [address] Monocytes/100 WBC (Bld) 4.4 % Low 4.7-12.5 [facility] Comment on above: Performed By: #### C BCWD #### [facility] [address] [place] [address] Neutrophils (Bld) [#/Vol] 5.8 10*3/uL Normal 1.6-6.1 [facility] Comment on above: Performed By: #### C BCWD #### [facility] [address] [place] [address] Neutrophils/100 WBC (Bld) 67.3 % Normal 34.0-71.1 [facility] Comment on above: Performed By: #### C BCWD #### [facility] [address] [place] [address] Platelets (Bld) [#/Vol] 200 10*3/uL Normal 182-369 [facility] Comment on above: Performed By: #### C BCWD #### [facility] [address] [place] [address] RBC (Bld) [#/Vol] 4.41 10*6/uL Normal 3.93-5.22 [facility] Comment on above: Performed By: #### C BCWD #### [facility] [address] [place] [address] WBC (Bld) [#/Vol] 8.6 10*3/uL Normal 4.0-10.0 [facility] Comment on above: Performed By: #### C BCWD #### [facility] [address] [place] [address] CBC with Auto Differentialon 08-21-2021 Basophils (Bld) [#/Vol] 0.0 10*3/uL 0.0 - 0.1 K/uL [facility] Basophils/100 WBC (Bld) 0.3 % 0.1 - 1.2 % [facility] Eosinophils (Bld) [#/Vol] 0.2 10*3/uL 0.0 - 0.4 K/uL [facility] Eosinophils/100 WBC (Bld) 2.4 % 0.7 - 5.8 % [facility] Hematocrit (Bld) [Volume fraction] 41.7 % 37.0 - 47.0 % [facility] Hemoglobin (Bld) [Mass/Vol] 13.6 g/dL 11.2 - 15.7 g/dL [facility] Immature granulocytes (Bld) [#/Vol] 0.0 10*3/uL [facility] Immature granulocytes/100 WBC (Bld) 0.3 % [facility] Interpretation and review of laboratory results Abnormal [facility] Lymphocytes (Bld) [#/Vol] 2.2 10*3/uL 1.2 - 3.7 K/uL [facility] Lymphocytes/100 WBC (Bld) 25.3 % [facility] MCH (RBC) [Entitic mass] 30.8 pg 25.6 - 32.2 pg [facility] MCHC (RBC) [Mass/Vol] 32.6 % 32.2 - 35.5 % [facility] MCV (RBC) [Entitic vol] 94.6 fL 79.4 - 94.8 fL [facility] Monocytes (Bld) [#/Vol] 0.4 10*3/uL 0.2 - 0.9 K/uL [facility] Monocytes/100 WBC (Bld) 4.4 % Low 4.7 - 12.5 % [facility] Neutrophils Absolute 5.8 K/uL 1.6 - 6 .1 K/uL [facility] Neutrophils/100 WBC (Bld) 67.3 % 34.0 - 71.1 % [facility] Platelet distribution width (Bld) [Ratio] 12.6 % 11.7 - 14.4 % [facility] Platelets (Bld) [#/Vol] 200 10*3/uL 182 - 369 K/uL [facility] RBC (Bld) [#/Vol] 4.41 10*6/uL [facility] WBC (Bld) [#/Vol] 8.6 10*3/uL 4.0 - 10.0 K/uL [facility] COVID-19on 08-21-2021 SARS-CoV-2 (COVID-19) RNA JOSIE+probe Ql (Unsp spec) Not detected Normal Not Detect [facility] Comment on above: Result Comment: [...] authorized laboratories. Fact sheet for Healthcare Providers: https://www.fda.gov/media/377254/download Fact sheet for Patients: https://www.fda.gov/media/965599/download METHODOLOGY: Isothermal Nucleic Acid Amplification Performed By: #### C BCWD #### [facility] [address] [place] [address] COVID-19, Rapidon 08-21-2021 SARS-CoV-2 (COVID-19) RNA JOSIE+probe Ql (Unsp spec) Not detected Not Detected [facility] Comment on above: Rapid NAAT: Negative [...] authorized laboratories. Fact sheet for Healthcare Providers: https://www.fda.gov/media/270504/download Fact sheet for Patients: https://www.fda.gov/media/612760/download METHODOLOGY: Isothermal Nucleic Acid Amplification [facility] CT ABDOMEN PELVIS W IV CONTR [...] Some of this report was completed using [employer] voice-recognition technology and may include unintended errors [...] Mckay Solis MD 08/21/21 Final result Normal [facility] Comprehensive Metabolic Pane l reflex Mgon 08-21-2021 Albumin [Mass/Vol] 4.3 g/dL Normal 3.5-4.6 [facility] Comment on above: Performed By: #### C BCWD #### [facility] [address] [place] [address] ALP [Catalytic activity/Vol] 116 U/L Normal 40-130 [facility] Comment on above: Performed By: #### C BCWD #### [facility] [address] [place] [address] ALT [Catalytic activity/Vol] 8 U/L Normal 0-33 [facility] Comment on above: Performed By: #### C BCWD #### [facility] [address] [place] [address] Anion gap [Moles/Vol] 13 mmol/L Normal 9-15 [facility] Comment on above: Performed By: #### C BCWD #### [facility] [address] [place] [address] AST [Catalytic activity/Vol] 10 U/L Normal 0-35 [facility] Comment on above: Performed By: #### C BCWD #### [facility] [address] [place] [address] Bilirubin [Mass/Vol] mg/dL Normal 0.2-0.7 [facility] Comment on above: Performed By: #### C BCWD #### [facility] [address] [place] [address] Calcium [Mass/Vol] 9.3 mg/dL Normal 8.5-9.9 [facility] Comment on above: Performed By: #### C BCWD #### [facility] [address] [place] [address] Chloride [Moles/Vol] 105 mmol/L Normal 95-107 [facility] Comment on above: Performed By: #### C BCWD #### [facility] [address] [place] [address] CO2 [Moles/Vol] 22 mmol/L Normal 20-31 [facility] Comment on above: Performed By: #### C BCWD #### [facility] [address] [place] [address] Creatinine [Mass/Vol] 0.48 mg/dL Low 0.50-0.90 [facility] Comment on above: Performed By: #### C BCWD #### [facility] [address] [place] [address] GFR >60.0 Normal >60 [facility] Comment on above: Result Comment: >60 mL/min/1.73m2 EGFR, calc. for ages 18 and older using the MDRD formula (not corrected for weight), is valid for stable renal function. Performed By: #### C BCWD #### [facility] [address] [place] [address] GFR/1.73 sq M.predicted among blacks MDRD (S/P/Bld) [Vol rate/Area] mL/min/{1.73_m2} Normal >60 [facility] Comment on above: Result Comment: >60 mL/min/1.73m2 EGFR, calc. for ages 18 and older using the MDRD formula (not corrected for weight), is valid for stable renal function. Performed By: #### C BCWD #### [facility] [address] [place] [address] Globulin (S) [Mass/Vol] 2.5 g/dL Normal 2.3-3.5 [facility] Comment on above: Performed By: #### C BCWD #### [facility] [address] [place] [address] Glucose [Mass/Vol] 114 mg/dL Critically high 70-99 M [facility] Comment on above: Performed By: #### C BCWD #### [facility] [address] [place] [address] Magnesium [Moles/Vol] 3.6 mmol/L Normal 3.4-4.9 [facility] Comment on above: Performed By: #### C BCWD #### [facility] [address] [place] [address] Protein [Mass/Vol] 6.8 g/dL Normal 6.3-8.0 [facility] Comment on above: Performed By: #### C BCWD #### [facility] [address] [place] [address] Sodium [Moles/Vol] 140 mmol/L Normal 135-144 [facility] Comment on above: Performed By: #### C BCWD #### [facility] [address] [place] [address] Urea nitrogen [Mass/Vol] 10 mg/dL Normal 6-20 [facility] Comment on above: Performed By: #### C BCWD #### [facility] [address] [place] [address] Comprehensive Metabolic Pane l w/ Reflex to MGon 08-21-2021 Albumin [Mass/Vol] 4.3 g/dL 3.5 - 4.6 g/dL [facility] ALP (Bld) [Catalytic activity/Vol] 116 U/L 40 - 130 U/L [facility] ALT [Catalytic activity/Vol] 8 U/L 0 - 33 U/L [facility] Anion gap [Moles/Vol] 13 mmol/L [facility] AST [Catalytic activity/Vol] 10 U/L 0 - 35 U/L [facility] Bilirubin [Mass/Vol] mg/dL 0.2 - 0 .7 mg/dL [facility] Calcium [Mass/Vol] 9.3 mg/dL 8.5 - 9.9 mg/dL [facility] Chloride [Moles/Vol] 105 mmol/L [facility] CO2 [Moles/Vol] 22 mmol/L [facility] Creatinine [Mass/Vol] 0.48 mg/dL Low 0.50 - 0.90 mg/dL [facility] Free PSA/Total PSA [Mass fraction] 6.8 g/dL 6.3 - 8.0 g/dL [facility] GFR >60.0 >60 [facility] Comment on above: >60 mL/min/1.73m2 EG FR, calc. for ages 18 and older using the MDRD formula (not corrected for weight), is valid for stable renal function. GFR Non- >60.0 >60 [facility] Comment on above: >60 mL/min/1.73m2 EG FR, calc. for ages 18 and older using the MDRD formula (not corrected for weight), is valid for stable renal function. Globulin (S) [Mass/Vol] 2.5 g/dL 2.3 - 3.5 g/dL [facility] Glucose [Mass/Vol] 114 mg/dL High 70 - 99 mg/dL [facility] Interpretation and review of laboratory results Abnormal [facility] Potassium reflex Magnesium 3.6 [facility] Sodium [Moles/Vol] 140 mmol/L [facility] Urea nitrogen (BldV) [Mass/Vol] 10 mg/dL 6 - 20 mg/dL [facility] Lipaseon 08-21-2021 Lipase [Catalytic activity/Vol] 18 U/L Normal 12-95 [facility] Comment on above: Performed By: #### L IPAS #### [facility] [address] [id number] Lipase [Catalytic activity/Vol] 18 U/L 12 - 95 U/L [facility] No Panel Informationon 08-21 [facility] , Urineon 2 Beta HCG ( test) Ql (U) Negative Detects HCG level >20 MIU/mL [facility] UR HCG Qualitativeon 022 Beta HCG ( test) Ql (U) Negative Normal Detects [facility] Comment on above: Performed By: #### C BCWD #### [facility] [address] [place] [address] Urinalysis with Reflex to Cu ltureon 08-21-2021 Bilirubin Urine Negative Negative [facility] Blood, Urine Negative Negative [facility] Clarity, UA Clear Clear [facility] Color, UA Yellow Straw/Yellow [facility] Glucose, Ur Negative Negative mg/dL [facility] Ketones Ql (U) Negative Negative mg/dL [facility] Leukocyte esterase Test strip Ql (U) Negative Negative [facility] Nitrite, Urine Negative Negative [facility] pH, UA 5.5 [facility] Protein, UA Negative Negative mg/dL [facility] Specific [place], UA <=1.005 [facility] Urine Reflex to Culture Not Indicated [facility] Urobilinogen, Urine 0.2 <2.0 E.U./dL [facility] Urinalysis, reflex to cultur minoo 08-21-2021 Bilirubin Ql (U) Negative Normal Negative [facility] Comment on above: Performed By: #### C BCWD #### [facility] [address] [place] [address] Clarity (U) Clear Normal Clear [facility] Comment on above: Performed By: #### C BCWD #### [facility] [address] [place] [address] Color (U) Yellow Normal Straw/[place] [facility] Comment on above: Performed By: #### C BCWD #### [facility] [address] [place] [address] Glucose Ql (U) Negative Normal Negative [facility] Comment on above: Performed By: #### C BCWD #### [facility] [address] [place] [address] Hemoglobin Ql (U) Negative Normal Negative [facility] Comment on above: Performed By: #### C BCWD #### [facility] [address] [place] [address] Ketones Ql (U) Negative Normal Negative [facility] Comment on above: Performed By: #### C BCWD #### [facility] [address] [place] [address] Leukocyte esterase Test strip Ql (U) Negative Normal Negative [facility] Comment on above: Performed By: #### C BCWD #### [facility] [address] [place] [address] Nitrite Ql (U) Negative Normal Negative [facility] Comment on above: Performed By: #### C BCWD #### [facility] [address] [place] [address] pH (U) 5.5 [pH] Normal 5.0-9.0 [facility] Comment on above: Performed By: #### C BCWD #### [facility] [address] [place] [address] Protein Ql (U) Negative Normal Negative [facility] Comment on above: Performed By: #### C BCWD #### [facility] [address] [place] [address] Specific gravity (U) [Rel density] <=1.005 Normal 1.005-1.03 [facility] Comment on above: Performed By: #### C BCWD #### [facility] [address] [place] [address] Urine Reflexed to Culture Not Indicated Normal [facility] Comment on above: Performed By: #### C BCWD #### [facility] [address] [place] [address] Urobilinogen Qn (U) 0.2 {Ginger'U}/dL Normal < 2.0 [facility] Comment on above: Performed By: #### C BCWD #### [facility] [address] [place] [address] CBC WITH AUTO DIFFERENTIALon 02-29-2020 Basophils (Bld) [#/Vol] 0.0 10*3/uL 0 - 0.2 K/uL [facility] Basophils/100 WBC (Bld) 0.4 % [place] Eosinophils (Bld) [#/Vol] 0.2 10*3/uL 0 - 0.7 K/uL [place] Eosinophils/100 WBC (Bld) 2.6 % [place] Erythrocyte distribution width (RBC) [Ratio] 13.6 % 11.5 - 14.5 % [place] Hematocrit (Bld) [Volume fraction] 40.3 % 37 - 47 % [place] Hemoglobin (Bld) [Mass/Vol] 13.6 g/dL 12 - 16 g/dL [place] Lymphocytes (Bld) [#/Vol] 1.7 10*3/uL 1 - 4.8 K/uL [place] Lymphocytes/100 WBC (Bld) 21.0 % [place] MCH (RBC) [Entitic mass] 31.0 pg 27 - 31.3 pg [place] MCHC (RBC) [Mass/Vol] 33.9 % 33 - 37 % [place] MCV (RBC) [Entitic vol] 91.6 fL 82 - 100 fL [place] Monocytes (Bld) [#/Vol] 0.4 10*3/uL 0.2 - 0.8 K/uL [place] Monocytes/100 WBC (Bld) 4.6 % [place] Neutrophils Absolute 5.6 K/uL 1.4 - 6 .5 K/uL [place] Neutrophils/100 WBC (Bld) 71.4 % [place] Platelets (Bld) [#/Vol] 195 10*3/uL 130 - 400 K/uL [place] RBC (Bld) [#/Vol] 4.40 10*6/uL [place] WBC (Bld) [#/Vol] 7.9 10*3/uL 4.8 - 10.8 K/uL [place] COVID-19on 02-29-2020 SARS-CoV-2, NAAT Not Detected Not Detected [place] Comment on above: Rapid NAAT: Negative [...] authorized laboratories. Fact sheet for Healthcare Providers: https://www.fda.gov/media/197943/download Fact sheet for Patients: https://www.fda.gov/media/350732/download METHODOLOGY: Isothermal Nucleic Acid Amplification POC UR-QUALon 02-11 Beta HCG ( test) Ql (U) Negative Negative [place] Lot Number [id number] [place] Negative QC Pass/Fail Pass [place] Positive QC Pass/Fail Pass [place] Hemoglobinon 11-03-2019 Hemoglobin (Bld) [Mass/Vol] 11.2 g/dL Low 12 - 16 g/dL [place] Interpretation and review of laboratory results Abnormal [place] RPRon 11-03-2019 Reagin Ab RPR Ql (S) Non-reactive Non-reactive [place] CBC auto differentialon 10-13 Basophils (Bld) [#/Vol] 0.0 10*3/uL 0 - 0.2 K/uL [place] Basophils/100 WBC (Bld) 0.3 % [place] Eosinophils (Bld) [#/Vol] 0.1 10*3/uL 0 - 0.7 K/uL [place] Eosinophils/100 WBC (Bld) 1.2 % [place] Erythrocyte distribution width (RBC) [Ratio] 13.4 % 11.5 - 14.5 % [place] Hematocrit (Bld) [Volume fraction] 34.9 % Low 37 - 47 % [place] Hemoglobin (Bld) [Mass/Vol] 11.7 g/dL Low 12 - 16 g/dL [place] Interpretation and review of laboratory results Abnormal [place] Lymphocytes (Bld) [#/Vol] 1.4 10*3/uL 1 - 4.8 K/uL [place] Lymphocytes/100 WBC (Bld) 11.4 % [place] MCH (RBC) [Entitic mass] 31.2 pg 27 - 31.3 pg [place] MCHC (RBC) [Mass/Vol] 33.6 % 33 - 37 % [place] MCV (RBC) [Entitic vol] 93.0 fL 82 - 100 fL [place] Monocytes (Bld) [#/Vol] 0.5 10*3/uL 0.2 - 0.8 K/uL [place] Monocytes/100 WBC (Bld) 4.2 % [place] Neutrophils Absolute 10.1 K/uL High 1.4 - 6 .5 K/uL [place] Neutrophils/100 WBC (Bld) 82.9 % [place] Platelets (Bld) [#/Vol] 191 10*3/uL 130 - 400 K/uL [place] RBC (Bld) [#/Vol] 3.75 10*6/uL Low [place] WBC (Bld) [#/Vol] 12.1 10*3/uL High 4.8 - 10.8 K/uL [place] Comprehensive Metabolic Pane fortunato 11-02-2019 Albumin [Mass/Vol] 3.2 g/dL Low 3.5 - 4.6 g/dL [place] ALP [Catalytic activity/Vol] 147 U/L High 40 - 130 U/L [place] ALT [Catalytic activity/Vol] 6 U/L 0 - 33 U/L [place] Anion gap [Moles/Vol] 10 mmol/L [place] AST [Catalytic activity/Vol] 7 U/L 0 - 35 U/L [place] Bilirubin Ql (U) <0.2 0.2 - 0.7 mg/dL [place] Calcium [Mass/Vol] 8.4 mg/dL Low 8.5 - 9.9 mg/dL [place] Chloride [Moles/Vol] 104 mmol/L [place] CO2 [Moles/Vol] 21 mmol/L [place] Creatinine [Mass/Vol] 0.3 mg/dL Low 0.5 - 0.9 mg/dL [place] GFR >60.0 >60 [place] Comment on above: >60 mL/min/1.73m2 EG FR, calc. for ages 18 and older using the MDRD formula (not corrected for weight), is valid for stable renal function. GFR Non- >60.0 >60 [place] Comment on above: >60 mL/min/1.73m2 EG FR, calc. for ages 18 and older using the MDRD formula (not corrected for weight), is valid for stable renal function. Globulin (S) [Mass/Vol] 2.8 g/dL 2.3 - 3.5 g/dL [place] Glucose [Mass/Vol] 103 mg/dL High 70 - 99 mg/dL [place] Interpretation and review of laboratory results Abnormal [place] Potassium [Moles/Vol] 3.9 mmol/L [place] Protein [Mass/Vol] 6.0 g/dL Low 6.3 - 8 g/dL [place] Sodium [Moles/Vol] 135 mmol/L [place] Urea nitrogen [Mass/Vol] 8 mg/dL 6 - 20 mg/dL [place] DRUG SCREEN MULTI URINEon Amphetamine Screen, Urine Negative Negative <1000 ng/mL [place] Barbiturate Screen, Ur Negative Negative < 200 ng/mL [place] Benzodiazepine Screen, Urine Negative Negative < 200 ng/mL [place] Cannabinoid Scrn, Ur Negative Negativ e < 50 ng/mL [place] Cocaine Metabolite Screen, Urine Negative Negative < 300 ng/mL [place] Drug Screen Comment: see below [place] Comment on above: This method is a scr eening test to detect only these drug classes as part of a medical workup. Confirmatory testing by another method should be ordered if clinically indicated. Methadone Screen, Urine Negative Negative <300 ng/mL [place] Comment on above: Effective: 10/20/18 New Test for Qualitative Drug Screen. Opiate Scrn, Ur Negative Negative < 300 ng/mL [place] Oxycodone Urine Negative Negative <10 0 ng/mL [place] Comment on above: Effective: 10/20/18 New Test for Qualitative Drug Screen. PCP Screen, Urine Negative Negative < 25 ng/mL [place] Propoxyphene Scrn, Ur Negative Negative <300 ng/mL [place] Comment on above: Effective: 10/20/18 New Test for Qualitative Drug Screen. Hepatitis B surface antigeno n 11-02-2019 Hep B S Ag Interp Non-reactive [place] Rubella antibody, IgGon 10-13 Rubella Antibody IgG 69.5 IU/mL [place] Comment on above: Patient's result ind icates immunity. Default Normal Ranges >=10 Presumed Immune <10 Presumed Not immune TYPE AND SCREENon 11-02-2019 ABO/Rh Positive [place] Urinalysison 11-02-2019 Bilirubin Urine Negative Negative [place] Blood, Urine Negative Negative [place] Clarity, UA Clear Clear [place] Color, UA Yellow Straw/Yellow [place] Glucose, Ur Negative Negative mg/dL [place] Ketones Ql (U) Negative Negative mg/dL [place] Leukocyte esterase Test strip Ql (U) Negative Negative [place] Nitrite, Urine Negative Negative [place] pH, UA 7.5 [place] Protein (U) [Mass/Vol] Negative Negative mg/dL [place] Specific [place], UA 1.020 [place] Urobilinogen, Urine 0.2 <2.0 E.U./dL [place] Otheron 06-19-2019 APPROPRIATE GROWTH SINCE LAST SONOGRAM. [place] Sonogram #: 1 Presentation: Transverse, head [...] the amniotic fluid is within normal limits. [employer] [facility] [place] [place] Manny, Chpo Incoming Radiant Results From [employer] - 06/19/2019 5:09 PM EDT Sonogram #: [...] limits. IMPRESSION: APPROPRIATE GROWTH SINCE LAST SONOGRAM. [id number], [employer] US OB LESS THAN 14 WEEKS SIN GLE OR FIRST GESTATIONon 04-14-2019 THERE IS A SINGLE IU P WITH ESTIMATED GESTATIONAL AGE BASED UPON CROWN-RUMP LENGTH OF 10 WEEKS 2 DAYS +/- 1 WEEK WITH HEART RATE OF 155 BPM. ANATOMY IS NOT ASSESSED DUE TO EARLY GESTATIONAL AGE. THE RIGHT OVARY IS SURGICALLY ABSENT. THE LEFT OVARY SUBMITTED VISUALIZED. [employer] [place] TRANSABDOMINAL EXAMINATION OF THE PELVIS CLINICAL DATA: [...] ovary is not visualized. No free fluid. [facility]anny[facility] Chpo Incoming Radiant Results From [employer] - 04/14/2019 4:16 PM EST TRANSABDOMINAL EXAMINATION [...] SURGICALLY ABSENT. THE LEFT OVARY SUBMITTED VISUALIZED. [facility] PROGRESSon 09-30-2018 PROGRESS HNO ID: [id number] Author: Maranda Parker (Christian) Vimal Service: ? Author Type: LOTUS NOTES ADMINISTRATOR Type: Progress Notes Filed: 09/30/2018 3:29 PM [...] OD September 30, 2018 2:08 PM Normal [facility] PROGRESSon 04-24-2018 PROGRESS HNO ID: [id number] Author: Maranda Celis Service: ? Author Type: LOTUS NOTES ADMINISTRATOR Type: Progress Notes Filed: 04/24/2018 3:32 PM [...] OD April 24, 2018 3:31 PM Normal [facility] Office Visit (Urgent Care)on 08-21-2017 Office Visit (Urgent Care) Chief Complaint Rash History of Present [id number] female who 2 hours ago was sitting [...] 08/21/2017 5:38:10 PM Vitals Vital Signs Recorded: [id number]:10WGHgselzwlcbj10. 5 FHeart [id number] [id number] Height5 ft 3 [id number] lb BMI [id number] Calculated1.83O2 Gyxmyaendn65Aahw Scale0 Physical ExamPatient appears in no apparent [...] 160 cm Sulema Teran DO Work Phone: [employer] 12-16-2021 07:12-0400 Body mass index (BMI) [Ratio] 31.89 kg/m2 Sulema Teran DO Work Phone: [employer] 12-16-2021 07:12-0400 Body temperature 98.91 [degF] Sulema Teran DO Work Phone: [employer] 12-16-2021 07:12-0400 Body weight 81.65 kg Sulema Teran DO Work Phone: [employer] 12-16-2021 07:12-0400 Diastolic blood pressure 84 mm[Hg] Sulema Teran DO Work Phone: [employer] 12-16-2021 07:12-0400 Heart rate 104 /min Sulema Teran DO Work Phone: [employer] 12-16-2021 07:12-0400 Respiratory rate 18 /min Sulema Teran DO Work Phone: [facility] [employer] 12-16-2021 07:12-0400 SaO2% (BldA) [Mass fraction] 98 % Sulema Teran DO Work Phone: [facility] [employer] 12-16-2021 07:12-0400 Systolic blood pressure 127 mm[Hg] Sulema Teran DO Work Phone: [facility] [employer] 10-28-2021 15:43-0400 Body height 160 cm Nikki Martha-David PA-C Work Phone: [facility] [employer] 10-28-2021 15:43-0400 Body mass index (BMI) [Ratio] 31.89 kg/m2 Nikki Martha-David PA-C Work Phone: [facility] [employer] 10-28-2021 15:43-0400 Body temperature 98.1 [degF] Nikki Martha-David PA-C Work Phone: [facility] [employer] 10-28-2021 15:43-0400 Body weight 81.65 kg Nikki Martha-David PA-C Work Phone: [facility] [employer] 10-28-2021 15:43-0400 Diastolic blood pressure 81 mm[Hg] Nikki Martha-David PA-C Work Phone: [facility] [employer] 10-28-2021 15:43-0400 Heart rate 93 /min Nikki Martha-David PA-C Work Phone: [email or web address] [employer] 10-28-2021 15:43-0400 Respiratory rate 20 /min Nikki Martha-David PA-C Work Phone: [facility] [employer] 10-28-2021 15:43-0400 SaO2% (BldA) [Mass fraction] 98 % Nikki Martha-David PA-C Work Phone: [employer] 10-28-2021 15:43-0400 Systolic blood pressure 130 mm[Hg] Nikki Froilan PA-C Work Phone: [facility] [employer] 08-21-2021 06:21-0400 Body temperature 98.2 [degF] Penny Ritter MD Work Phone: [employer] 08-21-2021 06:21-0400 Diastolic blood pressure 58 mm[Hg] Penny Ritter MD Work Phone: [employer] 08-21-2021 06:21-0400 Heart rate 81 /min Penny Ritter MD Work Phone: [employer] 08-21-2021 06:21-0400 Respiratory rate 16 /min Penny Ritetr MD Work Phone: [employer] 08-21-2021 06:21-0400 SaO2% (BldA) [Mass fraction] 97 % Penny Ritter MD Work Phone: [employer] 08-21-2021 06:21-0400 Systolic blood pressure 116 mm[Hg] Penny Ritter MD Work Phone: [employer] 08-21-2021 01:09-0400 Body height 160 cm Penny Ritter MD Work Phone: [employer] 08-21-2021 01:09-0400 Body mass index (BMI) [Ratio] 32.06 kg/m2 Penny Ritter MD Work Phone: [employer] 08-21-2021 01:09-0400 Body weight 82.1 kg Penny Ritter MD Work Phone: [employer] 11-05-2020 07:21-0400 Body temperature 98.1 [degF] Rebecca Gonzalez [employer] Work Phone: 11-05-2020 07:21-0400 Diastolic blood pressure 71 mm[Hg] Rebecca Gonzalez [employer] Phone: 11-05-2020 07:21-0400 Heart rate 94 /min Rebecca Gonzalez [employer] Phone: 11-05-2020 07:21-0400 Respiratory rate 18 /min eRbecca Gonzalez [employer] Phone: 11-05-2020 07:21-0400 SaO2% (BldA) [Mass fraction] 99 % Rebecca Gonzalez [employer] Phone: 11-05-2020 07:21-0400 Systolic blood pressure 116 mm[Hg] Rebecca Gonzalez [employer] Phone: 02-29-2020 12:25-0500 Body Temperature 97.7 [degF] Rj [employer] [facility] [place] 02-29-2020 12:25-0500 BP Diastolic 56 mm[Hg] Rj [employer] [facility] [employer] , [place] 02-29-2020 12:25-0500 BP Systolic 123 mm[Hg] Rj [employer] [facility] , [place] 02-29-2020 12:25-0500 Pulse (Heart Rate) 76 /min [facility] [place] 02-29-2020 12:25-0500 Pulse Oximetry 99 % Rj [employer] [facility] [place] 02-29-2020 12:25-0500 Respiratory Rate 16 /min [employer]j [employer] [facility] [place] 02-29-2020 08:15-0500 BMI (Body Mass Index) 34.54 kg/m2 Rj [employer] [facility] 02-29-2020 08:15-0500 Body weight 88.45 kg Rj [employer] [facility] , [place] 02-29-2020 08:15-0500 Height 160 cm Rj [facility] [place] 11-04-2019 07:30-0400 Body Temperature 98.29 [degF] [facility] [place] 11-04-2019 07:30-0400 BP Diastolic 68 mm[Hg] Rj [facility] , [place] 11-04-2019 07:30-0400 BP Systolic 115 mm[Hg] Rj [facility] , [place] 11-04-2019 07:30-0400 Pulse (Heart Rate) 88 /min Rj [facility] 11-04-2019 07:30-0400 Respiratory Rate 16 /min Rj [facility] 11-03-2019 12:37-0400 Pulse Oximetry 99 % Rj [facility] , [place] 11-02-2019 07:45-0400 BMI (Body Mass Index) 37.91 kg/m2 Rj [facility], [place] 11-02-2019 07:45-0400 Body weight 97.07 kg Rj [facility] , [place] 11-02-2019 07:45-0400 Height 160 cm Rj [facility] , [place] 09-30-2018 10:02-0400 BMI (Body Mass Index) 31 kg/m2 [facility] 09-30-2018 10:02-0400 Body Temperature 98.49 [degF] Tip [facility] [place] 09-30-2018 10:02-0400 Body [facility].38 [facility] [place] 09-30-2018 10:02-0400 BP Diastolic 71 mm[Hg] [facility] , [place] 09-30-2018 10:02-0400 BP Systolic 139 mm[Hg] [facility] , [place] 09-30-2018 10:02-0400 Height 160 cm [facility] [place] 09-30-2018 10:02-0400 Pulse (Heart Rate) 102 /min [facility] 09-30-2018 10:02-0400 Pulse Oximetry 98 % [facility] [place] 09-30-2018 10:02-0400 Respiratory Rate 14 /min [facility], [place] Encounters Encounter Date Encounter Type Care Provider Facility Start: 04-01-2023 End: 04-01-2023 ambulatory JOSE F SETH Not Available Start: 03-21-2023 End: 03-21-2023 ambulatory JOSE F R SETH [facility] Start: 03-18-2023 Chart abstracting Fish lorenz MD Work Phone: [facility] Start: 03-11-2023 End: 03-11-2023 ambulatory JOSE F SETH Not Available Start: 02-18-2023 End: 02-18-2023 ambulatory DONNELL FINCH Not Available Start: 01-29-2023 End: 01-30-2023 ambulatory [facility] Facility[facility] Start: 01-29-2023 End: 01-29-2023 Patient encounter procedure Jose F R SETH [facility] Start: 01-29-2023 End: 01-30-2023 ambulatory Jose F R SETH Facility:[facility] Start: 01-29-2023 End: 01-29-2023 Patient encounter procedure Jose F R SETH [facility] Start: 01-11-2023 End: 01-12-2023 ambulatory Jose F R SETH Facility:[facility] Start: 01-11-2023 End: 01-11-2023 Patient encounter procedure Jose F R SETH [facility] Start: 01-10-2023 End: 01-10-2023 ambulatory JOSE F SETH Not Available Start: 12-28-2022 End: 12-28-2022 ambulatory DONNELL FINCH Not Available Start: 07-31-2022 End: 07-31-2022 Emergency department patient visit [facility] Start: 04-11-2022 End: 04-12-2022 ambulatory LILIANA CARROLL [facility] Start: 04-11-2022 End: 04-11-2022 Subsequent hospital visit by physician Nikki Mcgovern PA-C Work Phone: [facility] Comment on above: Tonsillitis with exu date Start: 12-16-2021 End: 12-16-2021 Emergency department patient visit [facility] Start: 12-16-2021 End: 12-16-2021 Emergency department patient visit Sulema Teran DO Work Phone: [facility] ED Comment on above: Bitten by mouse, ini tial encounter (Primary Dx) Start: 11-29-2021 End: 11-29-2021 ambulatory [facility] Start: 10-28-2021 End: 10-28-2021 Emergency department patient visit [facility] Start: 10-28-2021 End: 10-28-2021 [facility] Work Phone: [facility] Comment on above: Cellulitis of trunk, unspecified site of trunk (Primary Dx) Start: 08-21-2021 End: 08-21-2021 Emergency department patient visit [facility] Start: 08-21-2021 End: 08-21-2021 Emergency department patient visit Penny Ritter MD Work Phone: [facility] ED Comment on above: Acute gastritis with out hemorrhage, unspecified gastritis type (Primary Dx) Start: 11-05-2020 End: 11-05-2020 Emergency department patient visit Rebecca S Gonzalez DO [facility] ED Comment on above: [...] hospital visit by physician Madhav Ultrasound 3 [facility] Ultrasound Comment on above: Amenorrhea Start: 04-14-2019 End: 04-16-2019 Subsequent hospital visit by physician Olvera Ultrasound Room 1 [facility] Ultrasound Comment on above: Amenorrhea Start: 09-30-2018 End: 09-30-2018 Emergency department patient visit Tip Antunez Work Phone: [facility] ED Comment on above: [...] abdomen & pelvis w/contrast material Spring Orozco 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 WRITER - 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 UP 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 Other Phone: Start: 10-28-2021 Blood count complete auto&auto difrntl wbc Spring Orozco PRINCIPAL TECHNICAL WRITER - 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 UP HELPER Other Phone: Start: 10-28-2021 Urine test visual color cmprsn meths Spring Orozco PRINCIPAL TECHNICAL WRITER - 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 UP HELPER Other Phone: Start: 08-21-2021 Assay of lipase [...] Rj Aguilar Work Phone: c section x2 [employer] Colonoscopy [employer] SETH extraction of wisdom teeth [employer] H/O: section Previous c esarean section Mloz 1 Plan of Treatment Date Care Activity Detail Author Start: 12-17-2031 DTaP/Tdap/Td vaccine (3 - Td or Tdap) DTaP/Tdap/Td vaccine (3 - Td or Tdap) [facility] Start: 07-12-2025 Screening for malign ant neoplasm of cervix [facility] Start: 05-27-2024 Screening for malign ant neoplasm of cervix Cervical cancer screen [place], [place] Start: 07-13-2023 Screening for malign ant neoplasm of cervix Pap smear [facility] [employer] Start: 03-21-2023 End: 03-21-2023 Patient encounter procedure 03/21/2023 8:00 AM EST Appointment [facility] [address] [facility] [address] [place] [address] [facility] Start: 03-07-2023 Depression Monitoring Depression Mon Million-2-1 [facility] [employer] [facility] Start: 10-12-2022 Influenza vaccination Influenza Vacc ine [facility] Start: 08-29-2022 Depression Monitoring Depression Mon Million-2-1 [facility] [employer] [facility] Start: 06-08-2022 End: 06-08-2022 Patient encounter procedure 06/08/2022 Office Visit Neurology Blas Mike MD [address] [address] [facility] Neurology Start: 02-02-2022 End: 02-02-2022 Patient encounter procedure 02/02/2022 Office Visit Neurology Blas Mike MD [address] [place] [address] [facility] Neurology Start: 01-10-2022 End: 01-10-2022 Patient encounter procedure 01/10/2022 Office Visit Family Medicine Nikki Mcgovern PA-C [address] [place] [address] [facility] Start: 12-18-2021 End: 12-18-2021 Patient encounter procedure 12/18/2021 Office Visit Orthopedic Surgery Alena Chandra MD [address] [place] [address] [facility] Orthopedics and Sports Medicine Start: 10-12-2021 Influenza vaccination Flu vaccine (# 1) [facility] Start: 09-29-2021 End: 09-29-2021 Patient encounter procedure 09/29/2021 Office Visit Neurology Blas Mike MD [address] [place] [address] [facility] Neurology Start: 09-11-2021 Influenza vaccination Flu vaccine (# 1) [facility] Start: 01-20-2021 End: 01-20-2021 Patient encounter procedure 01/20/2021 Office Visit Neurology Blas Mike MD [address] [place] [address] [facility] Neurology Start: 12-01-2020 End: 12-01-2020 Patient encounter procedure 12/01/2020 Office Visit Obstetrics and Gynecology Rj Aguilar, [address] [place] [address] [phone] [facility] Obstetrics and Gynecology Start: 10-12-2020 Influenza vaccination Flu vaccine (# 1) [facility] Work Phone: Start: 09-29-2020 End: 09-29-2020 Patient encounter procedure 09/29/2020 Office Visit Family Medicine Nikki Mcgovern PA-C [address] [place] [address] [phone] [facility] Start: 09-16-2020 End: 09-16-2020 Patient encounter procedure 09/16/2020 Office Visit Neurology Blas Mike MD [address] [facility] [address] [facility] [address] [place] [address] [phone] [facility] Start: 02-16-2020 End: 02-16-2020 Procedure visit 02/16/2020 Procedure visit Obstetrics and Gynecology Rj Aguilar, [place] [address] [place] [address] [phone] [facility] Obstetrics and Gynecology Start: 12-01-2019 DTaP/Tdap/Td vaccine (2 - Td or Tdap) DTaP/Tdap/Td vaccine (2 - Td or Tdap) [facility] Start: 12-01-2019 DTaP/Tdap/Td vaccine (2 - Td) DTaP/Tdap/Td vaccine (2 - Td) [place] Start: 10-13-2019 Influenza vaccination [place], [place] Start: 06-25-2019 End: 06-25-2019 Routine 06/25/2019 Routine Obstetrics and Gynecology Rj Aguilar DO [address] [place] [address] [phone] [facility] Obstetrics and Gynecology Start: 05-05-2019 End: 05-05-2019 Routine 05/05/2019 Routine Obstetrics and Gynecology Rj Aguilar DO [address] [place] [address] [phone] [facility] Obstetrics and Gynecology Start: 10-12-2018 Influenza vaccination Flu vaccine (# 1) [place] Start: 05-07-2016 Cervical cancer screen Cervical canc er screen [place] Start: 10-20-2008 Screening for malign ant neoplasm of cervix Pap Smear [facility] Start: 10-20-2006 DTaP,Tdap and Td Vaccines (1 - Tdap) DTaP,Tdap and Td Vaccines (1 - Tdap) [facility] Start: 10-20-2005 Adult BMI Screening Adult BMI Screen ing [facility] Start: 10-20-2000 Varicella Vaccine (1 of 2 - 13+ 2-dose series) Varicella Vaccine (1 of 2 - 13+ 2-dose series) [place] Start: 1999 COVID-19 Vaccine (1) COVID-19 Vaccin e (1) [facility] [employer] Phone: Start: 1999 [facility] Start: 1999 Depression Screening Depression Scre ening [facility] Start: 1999 Tobacco Screening Tobacco Screening [facility] Start: 10-20-1993 Pneumococcal 0-64 ye ars Vaccine (1 - PCV) Pneumococcal 0-64 years Vaccine (1 - PCV) [facility] Start: 10-20-1993 Pneumococcal 0-64 ye ars Vaccine (1 of 1 - PPSV23) Pneumococcal 0-64 years Vaccine (1 of 1 - PPSV23) [place] Start: 10-20-1993 Pneumococcal 0-64 ye ars Vaccine (1 of 2 - PPSV23) Pneumococcal 0-64 years Vaccine (1 of 2 - PPSV23) [facility] [employer] Phone: Start: 10-20-1992 COVID-19 Vaccine (1) COVID-19 Vaccin e (1) [facility] Start: 10-20-1988 Varicella vaccine (1 of 2 - 2-dose childhood series) Varicella vaccine (1 of 2 - 2-dose childhood series) [employer] Start: 04-19-1988 COVID-19 Vaccine (#1) COVID-19 Vacci ne (#1) [employer] Start: 1987 Tobacco Counseling Tobacco Counselin [facility] End: 08-21-2021 CT ABDOMEN PELVIS W IV CONTRAST Additional Contrast? None CT ABDOMEN PELVIS W IV CONTRAST Additional Contrast? None Imaging Routine Once for 1 Occurrences starting 08/21/2021 until 08/21/2021 [employer] Phone: Comment on above: Once for 1 Occurrenc es starting 08/21/2021 until 08/21/2021 CT ABDOMEN PELVIS W IV CONTRAST Additional Contrast? None CT ABDOMEN PELVIS W IV CONTRAST Additional Contrast? None Imaging STAT 08/21/2021 2:34 AM EDT [employer] Phone: End: 10-28-2021 Culture, Anaerobic and Aerobic Culture, Anaerobic and Aerobic Microbiology Routine One Time for 1 Occurrences starting 10/28/2021 until 10/28/2021 [employer] Phone: Comment on above: One Time for 1 Occur rences starting 10/28/2021 until 10/28/2021 End: 04-11-2022 Culture, Throat [employer] Phone: Comment on above: 1 Occurrences starti ng 04/11/2022 until 04/11/2022 End: 08-12-2020 Holter Monitor 48 Hour Holter Monitor 48 Hour Cardiac Services Routine Heart palpitations 1 Occurrences starting 08/12/2020 until 08/12/2020 [employer] Phone: Comment on above: 1 Occurrences starti ng 08/12/2020 until 08/12/2020 Oxygen therapy [[facility] Data Set] [facility] Comment on above: Daily until disconti nued starting 11/02/2019 Daily until disconti nued starting 02/29/2020 Phase I & II - meter ed glucose Phase I & II - metered glucose Point of Care Testing Routine As Needed until discontinued starting 02/29/2020 [place] Comment on above: As Needed until disc ontinued starting 02/29/2020 End: 11-02-2019 RHOGAM INJECTION ONLY RHOGAM INJECTION ONLY Blood Bank Routine One Time for 1 Occurrences starting 11/02/2019 until 11/02/2019 [place] Comment on above: One Time for 1 Occur rences starting 11/02/2019 until 11/02/2019 Spirometry panel Incentive jayleen metry Respiratory Care Routine Every 2hr while awake until discontinued starting 11/02/2019 [place] Comment on above: Every 2hr while awak e until discontinued starting 11/02/2019 Surgical Pathology Surgical Path ology Lab Routine Release Upon Ordering for 1 Occurrences starting 02/29/2020 [place] Comment on above: Release Upon Orderin g for 1 Occurrences starting 02/29/2020 End: 04-14-2019 US OB Transvaginal US OB Transvaginal Imaging Routine Amenorrhea 1 Occurrences starting 04/14/2019 until 04/14/2019 [place] Comment on above: 1 Occurrences starti ng 04/14/2019 until 04/14/2019 US OB Transvaginal US OB Transva ginal Imaging Routine Amenorrhea 04/14/2019 2:44 PM EST [place] Immunizations Immunization Date Immunization Notes Care Provider Nata storey 12-16-2021 tetanus toxoid, redu jameson diphtheria toxoid, and acellular pertussis vaccine, adsorbed Sulema Teran DO Work Phone: [facility] 11-02-2019 diphtheria, tetanus toxoids and acellular pertussis vaccine, unspecified formulation Rj Aguilar [place], [place] 01-22-2017 tetanus toxoid, redu jameson diphtheria toxoid, and acellular pertussis vaccine, adsorbed Jose F ANN [facility] Comment on above: Reason for Medicatio n: Other (see comment) 11-30-2009 tetanus toxoid, redu jameson diphtheria toxoid, and acellular pertussis vaccine, adsorbed Tip Antunez [facility] 10-04-2000 measles, mumps and rubella virus vaccine Rebecca Gonzalez DO [facility] Work Phone: Payers Date Payer Category Payer Medicaid [employer] [facility] O [id number] 2023-Present [phone] [address] [place] [address] [id number] 2021 Unknown , [id number] 2017 Unknown [id number] 2016 Unknown [facility] MEDICA[facility] xxxxxxxxxxx 2016-Present [phone] CLAIMS DEPARTMENT [address] [place] [address] xxxxxxxxxxx [id number] 2016 Unknown [id number]. [id number] 1987 Unknown [id number] [id number] 1987 Unknown [id number] [id number] 1987 Unknown [id number] [id number] 1987 Unknown [id number] [id number] 1987 Unknown [id number] [id number] 1987 Unknown [id number] [id number] 1987 Unknown [id number] [id number] 1987 Unknown [id number] [id number] 1987 Unknown [id number] [id number] 1987 Unknown [id number] [id number] 1987 Unknown [id number] [id number] 1987 Unknown [id number] [id number] 1987 Unknown [id number] [id number] 1987 Unknown [id number] [id number] 1987 Unknown [id number] Social History Date Type Detail Facility Start: 09-30-2018 End: 03-18-2023 Tobacco smoking status NHIS Current every day smoker [facility] History of tobacco use Cigarette Smoker [place] Start: 09-30-2018 End: 03-18-2023 Cigarettes smoked current (pack per day) - Reported [place] Start: 09-30-2018 End: 03-18-2023 Alcohol intake No [facility] Start: 1987 Sex Assigned At Not on file [place] Start: 04-07-2019 End: 04-11-2022 Alcohol intake Current non-drinker of alcohol (finding) [place] Start: 02-19-2019 [place], [place] Exposure to SARS-CoV -2 (event) Unable to assess [place] Start: 11-03-2019 End: 08-29-2021 Tobacco use and exposure Never used [place], [place] Start: 08-11-2021 End: 04-11-2022 Exposure to SARS-CoV-2 (event) Not sure [place] Start: 08-04-2020 End: 04-09-2022 History 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 Phone: Start: 10-13-2017 Tobacco smoking status Heavy t obacco smoker (finding) [facility] Medical Equipment Procedure Code Equipment Code Equipment Origin al Text Equipment Identifier Dates fluorescein ophthalmic strip 1 mg [id number] Start: 09-30-2018 End: 09-30-2018 Clinical Notes 08-21-2021 to 01-11-2023 InstructionsAttachments Note Date & Type Note Facility 01-11-2023 Evaluation + Plan note Diagnostic Tests PendingHIV Screen 4th Generation wRfx 01/11/23Hepatitis B Surface Antigen 01/11/23RPR with Conf Rfx 01/11/23Rubella Antibody IgG 01/11/23HCV Antibody RFX to Quant PCR 01/11/23Urine Culture 01/11/23 [facility] 08-21-2021 Hospital Discharg e instructions Penny Ritter MD - 08/21/2021 Return to the Emergency Department immediately if you develop worsening symptoms, or you have any other concerns. Please follow up with your family doctor in 1-2 days. The following attachments cannot be sent through Care Everywhere.Gastritis (Djiboutian)documented in this encounter [employer] Phone: Evaluation note Diagnosis Heart palpitations Palpitations documented in this encounter [employer] Phone: evaluation note* Diagnosis Dental abscess- Primary Periapical abscess without sinus documented in this encounter [employer] Phone: evaluation note* Diagnosis Acute gastritis without hemorrhage, unspecified gastritis type- Primary documented in this encounter [facility] [employer] Phone: evaluation note* Diagnosis Cellulitis of trunk, unspecified site of trunk- Primary documented in this encounter [facility] [employer] Phone: evalsolwjj note* Diagnosis Bitten by mouse, initial encounter- Primary documented in this encounter [facility] [employer] Phone: evaluation note* Diagnosis Tonsillitis with exudate Acute tonsillitis documented in this encounter [facility] [employer] Phone: Hospital course Narrative No data available for this section [facility] Attachments The following attachments cannot be sent through Care Everywhere. * Tooth: Abscessed (Djiboutian) [facility] [employer] Phone: Hospital Discharge instructions* Attachments The following attachments cannot be sent through Care Everywhere. * Cellulitis (Djiboutian) [facility] [employer] Phone: Hospital Discharge instructions* Attachments The following attachments cannot be sent through Care Everywhere. * Bites: Animal (Djiboutian) [facility] [employer] Phone: Hospital Discharge instructions No data available for this section [facility]ructionsNot on filedocumented in this encounter [facility] No data available for this section [facility] Summary Purpose Family History No Family [...] FoundDocuments on File Type Date Recorded Patient Scientific Specialist Expl anation Advance Directives and Living Will Power of Software Project Manager Documents on File Type Date Recorded Patient Scientific Specialist Expl anation Advance Directives and Living Will Power of Software Project Manager Documents on File Type Date Recorded Patient Scientific Specialist Expl anation ACP-Advance Directive ACP-Power of Software Project Manager Latest Code Status on File Code Status Date Activated Date Inactivated Comments Full Code 11/02/2019 12:26 PM Full Code 11/02/2019 7:35 AM 11/02/2019 12:26 PM Latest Code Status on File Code Status Date Activated Date Inactivated Comments Full Code 11/02/2019 12:26 PM 11/04/2019 3:22 PM Documents on File Type Date Recorded Patient Scientific Specialist Expl anation ACP-Advance Directive ACP-Power of Software Project Manager Latest Code Status on File Code Status [...] * LEEP (LOOP ELECTROSURGICAL EXCISION PROCEDURE): POST-OP (FRENCH) * Coronavirus Disease (COVID-19): General Info (Djiboutian) documented in this encounter Assessments Diagnosis Pain [...] Rj Aguilar, DO [address] [place] [address] Status Reason Specialty Diagnoses / Procedures Referre d By Contact Referred To Contact [facility] Diagnoses Amenorrhea Procedures US OB Transvaginal Rj Aguilar, DO [address] [place] [address] Status Reason Specialty Diagnoses / Procedures Referre d By Contact Referred To Contact [facility] Diagnoses Amenorrhea Procedures US OB TRANSVAGINAL Rj Aguilar, DO [address] [place] [address] Status Reason Specialty Diagnoses / Procedures Referred By Contact Referred To Contact Not Required - [facility] Diagnoses Amenorrhea Procedures US OB 14 Plus Weeks Single or First Gestation HC US OB GREATER THAN 14 WEEKS SINGLE FETUS Rj Aguilar, DO [address] [place] [address] Status Reason Specialty Diagnoses / Procedures Referre d By Contact Referred To Contact Closed Diagnoses Heart palpitations Procedures Holter Monitor 48 Hour Nikki Mcgovern PA-C [address] [place] [address] History of Present Illness * Rj Aguilar, [...] 50 mL IVPB (duplex), 2 g, Intravenous, Manager Infusion to OR, Rj Diaz DO meperidine (DEMEROL) [...] Once PRN, Junior Fuentes MD OB History: 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 Past Surgical History: Past Surgical History: Procedure Laterality Date SECTION 2013 SECTION N/A 11/02/2019 SECTION performed by Rj Aguilar DO at [facility] L&D OR COLONOSCOPY 09/03/14 w/bx Social History: [...] section and content) DATE CREATED AUTHOR 08/21/2017 [employer] DATE CREATED AUTHOR AUTHOR'S ORGANIZ ATION 10/01/2018 [facility] DATE CREATED AUTHOR AUTHOR'S ORGANIZ ATION 09/01/2021 [facility] edical Center DATE CREATED AUTHOR AUTHOR'S ORGANIZ ATION [facility] DATE CREATED AUTHOR AUTHOR'S ORGANIZ ATION 07/31/2022 [facility] DATE CREATED AUTHOR AUTHOR'S ORGANIZ ATION 01/31/2023 Gallego Bollinger [facility] ical Center DATE CREATED AUTHOR AUTHOR'S ORGANIZ ATION 03/25/2023 [facility] DATE CREATED AUTHOR AUTHOR'S ORGANIZ ATION 04/02/2023 [facility] dical Specialists EPIC Reason for Visit [...] Rj Aguilar DO [address] [place] [address] Status Reason Specialty Diagnoses / Procedures Referred By Contact Referred To Contact Not Required - [facility] Diagnoses Amenorrhea Procedures US OB 14 Plus Weeks Single or First Gestation HC US OB GREATER THAN 14 WEEKS SINGLE FETUS Rj Aguilar, DO [address] [place] [address] Reason Comments Other Scheduled C/S Status Reason Specialty Diagnoses / Procedures Referre d By Contact Referred To Contact Diagnoses Status post repeat low transverse section repeat Procedures UT DELIVERY ONLY SECTION Rj Aguilar, DO [address] [place] [address] [facility] Status Reason Specialty Diagnoses / Procedures Re ferred By Contact Referred To Contact Diagnoses HGSIL Pap smear of anus HGSIL Procedures UT COLPOSCOPY,ENTIRE VAGINA LOOP ELECTROSURGICAL EXCISION PROCEDURE COLPOSCOPY, ECC (PAT ON ADMIT) RAPID COVID Rj Aguilar, DO [address] [place] [address] [facility] [facility] Status Reason Specialty Diagnoses / Procedures Referre d By Contact Referred To Contact Closed Diagnoses Heart palpitations Procedures Holter Monitor 48 Hour Nikki Mcgovern PA-C [address] [place] [address] Reason Comments Dental Pain right upper gum [...] 28 capsule 0 10/28/2021 11/04/2021 nystatin (MYCOSTATIN) 470691 UNIT/GM powder Apply topically 2 times daily [...] Care Teams (unrecognized sec tion and content) 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 [facility], [facility]. provides no warranty or guarantee of the accuracy or completeness of information in this document.
--- NOTE | 2023-04-17 | US_ITS ---
[address] [address] Patient Name: LARRY COLON MRN: [facility]:[id number] date: 1985 Sex: F Assigned Patient Location: US Current Patient Location: Accession/Order Number: [id number] Exam Date: 04/17/2023 14:15 Report Date: 04/18/2023 07:14 At the request of: ISSAC ANN Procedure: US OB BPP w non-stress EXAMINATION: US OB BPP w non-stress HISTORY: size inconsistent with dates COMPARISON: No relevant comparison available. TECHNIQUE: Ultrasound biophysical profile was performed in the radiology department. BREATHING MOVEMENTS: 2.0 GROSS BODY MOVEMENTS: 2.0 TONE: 2.0 QUALITATIVE AMNIOTIC FLUID VOLUME: 2.0 PRESENTATION: CEPHALIC HEART RATE: 137.1 bpm bpm. AMNIOTIC FLUID VOLUME: 14.2 cm GESTATIONAL AGE: 37 weeks 5 days CONCLUSION: Total biophysical profile score 8.0. Electronically authenticated by: LENA BELLAMY Date: 04/18/2023 07:14
--- NOTE | 2023-04-17 | US_ITS ---
[address] [address] Patient Name: LARRY COLON MRN: [facility]:[id number] date: 1985 Sex: F Assigned Patient Location: US Current Patient Location: US Accession/Order Number: [id number] Exam Date: 04/17/2023 14:15 Report Date: 04/18/2023 07:15 At the request of: ISSAC ANN Procedure: US OB growth EXAMINATION: US OB growth HISTORY: size inconsistent with dates COMPARISON: No relevant comparison available. FINDINGS: Heart Rate: 137.1 bpm Number: 1.0 Position: CEPHALIC Amniotic Fluid Volume: 14.2 cm Maximum Vertical Pocket: 5.6 cm BIOMETRY: BPD: 9.3 cm cm; 37 weeks 5 days; 71% HC: 33.6 cmcm; 38 weeks 3 days ; 46% AC: 34.5 cm cm; 38 weeks 3 days; 83% FL: 6.4 cm cm; 33 weeks 1 days; < 3% EFW: 3124.7 grams; 45% FL/AC: 18.6 FL/BPD: 69.3 HC/AC: 1.0 GESTATIONAL AGE: Age by EDC: 37 weeks 5 days PORTILLO by EDC: 05/03/2023 Age by US: 37 weeks 0 days PORTILLO by US: 05/08/2023 US/US OB growth IMPRESSION: 1. Single live intrauterine . 2. Femur length remains < 3rd percentile. Electronically authenticated by: LENA BELLAMY Date: 04/18/2023 07:15
--- OUTSIDE RECORDS SUMMARY | 2023-04-17 07:17 | XMS_ITS | CCD ---
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 Start Date: 01/22/17 Status: Ordered Ethinyl Estradiol [...] Refill(s) 5, Start 3 weeks after delivery, [facility] Start Date: 01/22/17 Status: [...] Mild, # 40 tab(s), Refills(s) 0, Pharmacy: [facility] Start Date: 01/22/17 Status: [...] sources) Polyene Antifungal Start: 10-28-2021 nystatin (MYCOSTATIN) 149100 UNIT/GM powder Apply topically 2 times daily [...] Give after delivery of placenta. Prenat w/o D-HgNke-ADV-FA-DHA (PRENAISSANCE PLUS) 28-1-250 MG CAPS (4 sources) Start: 06-03-2019 take 1 tablet by mouth once daily Prenat w/o Z-VeEsv-FLQ-FA-DHA (PRENAISSANCE PLUS) 28-1-250 MG CAPS Take 1 tablet by mouth daily 30 capsule 06/03/2019 Suspended Start: 06-03-2019 take 1 tablet by mario th once daily Prenat w/o P-ItWqv-XOY-FA-DHA (PRENAISSANCE PLUS) 28-1-250 MG CAPS Take 1 [...] tablet 3 04/09/2017 09/30/2018 Discontinued (LIST CLEANUP) [id number]-[id number]-FN-Yghtgf (PRENATE AM PO) (1 source) End: 09-30-2018 En-U9-[id number]-TP-Wzagas (PRENATE AM PO) Take by mouth 0 09/30/2018 Discontinued (LIST CLEANUP) Multivitamins with Folic Acid 1 mg oral tablet (3 sources) Start: 07-26-2016 Multivitamins with Folic Acid 1 mg oral tablet 1 tab(s), Oral, Daily, 100 tab(s), Refill(s) 0, [facility] Start Date: 07/26/16 Status: [...] Extremities Normal Diaphragm Normal ACI Normal Normal [facility] CHEMISTRYOrdered By: SYSTEM SYSTEM on 01-29-2023 Glucose [Mass/Vol] 157 mg/dL High 55 - 140 mg/dL Remisol Chem Consent for Treatmenton 01-11 Consent for Treatment [id number]#1 .00TIFF Normal [facility] Consent for Treatment [id number]#1 .00TIFF Normal [facility] Gest Scr Glu 1 Hron 01-30-20 23 Glucose [Mass/Vol] 157 mg/dL High 55-140 [facility] Comment on above: Performed By: #### 2 [id number], [id number], 880079702, 0464542271, 155384545, 533923759, 5839357, 1210517, 8422734 #### [facility] [address] [place] [address] Glucose 1h post 50g loadon 04-01-2022 Glucose, 1 hr PP 50GM dose 157 [facility] Physician Orderon 01-29-2023 Physician Order [id number]# 1.00TIFF Normal [facility] Physician Orderon 01-28-2023 Physician Order [id number]#1 .00TIFF Normal [facility] C Urineon 01-13-2023 Bacteria identified [...] Locations R1: This test was performed at: [facility], [address] [place] [address], [address] , , [facility] Comment on above: Performed By: #### 2 [id number], 76715415, 884371688, 5256314388, 801148180, 856118530, 9404614, 8954572, 6323895 #### [facility] [address] [place] [address] .Interpretation:on HCV Ab IA Ql Comment Invalid Interpretation Code [facility] Comment on above: Result Comment: Not infected with HCV unless early or acute infection is suspected (which may be delayed in an immunocompromised individual), or other evidence exists to indicate HCV infection. Performed at: [facility] [id number] [place], [place] [id number] PhD Mariama Zaman Performed By: #### 2 [id number], 70009854, 160901459, 7318803188, 577304963, 504215740, 2101285, 2388372, 8043671 #### [facility] [address] [place] [address] HCV Antibody RFX to Quant PC Johnny 01-12-2023 HCV IgG IA Ql Non-Reactive Invalid Interpretation Code Non Reactive [facility] Comment on above: Result Comment: Perf ormed at: [address] [id number] PhD Mariama Zaman Performed By: #### 2 [id number], 41341170, 255818781, 9578270591, 917541370, 352362851, 4142290, 3259992, 5693549 #### [facility] [address] [place] [address] HIV Screen 4th Generation wR fxon 01-12-2023 HIV 1+2 Ab+HIV1 p24 Ag IA Ql Non-Reactive Invalid Interpretation Code Non Reactive [facility] Comment on above: Result Comment: HIV Negative HIV-1/HIV-2 antibodies and HIV-1 p24 antigen were NOT detected. There is no laboratory evidence of HIV infection. Performed at: [address] [id number] PhD Mariama Zaman Performed By: #### 2 [id number], 90298688, 692817594, 9532152652, 693575860, 272096021, 7980340, 4802732, 7490133 #### [facility] [address] [place] [address] Hep Bs Agon 01-12-2023 HBV surface Ag IA Ql Negative Invalid Interpretation Code Negative [facility] Comment on above: Result Comment: Perf ormed at: [address] [id number] PhD Mariama Zaman Performed By: #### 2 [id number], 54852630, 722778365, 2686477528, 317453455, 192124596, 0223500, 0430795, 5394534 #### [facility] [address] [place] [address] RPR with Conf Rfxon 01-13-20 23 Reagin Ab RPR Ql (S) Non-Reactive Invalid Interpretation Code Non Reactive [facility] Comment on above: Result Comment: Perf ormed at: [address] [id number] PhD Mariama Zaman Performed By: #### 2 179698461, 59046877, 269098366, 9775147811, 161294164, 090063864, 9836090, 5282010, 9782088 #### [facility] [address] [place] [address] Rubella IgGon 01-12-2023 Rubella virus IgG Qn (S) 5.68 [IU]/mL Invalid Interpretation Code Immune >0.99 [facility] Comment on above: Result Comment: Non- immune <0.90 Equivocal 0.90 - 0.99 Immune >0.99 Performed at: [address] [id number] PhD Mariama Zaman Performed By: #### 2 457382304, 92062241, 931896726, 2083520362, 114455877, 851769516, 9513131, 7478432, 1954747 #### [facility] [address] [place] [address] ABO/Rhon 01-11-2023 ABO/Rh Positive Invalid Interpretation Code [facility] Comment on above: Performed By: #### 2 [id number], 52341367, 087434175, 0833167061, 890449349, 234087732, 2166074, 4271717, 4662030 #### [facility] [address] [place] [address] ABSCon 01-11-2023 ABSC Gel Interp Negative Normal [facility] Comment on above: Performed By: #### 2 387567203, 22227694, 294444173, 6241289595, 030771959, 230770928, 8628130, 4592376, 3995774 #### [facility] [address] [place] [address] BLOOD BANKOrdered By: Dylan Lemons on 01-11-2023 ABO/Rh Interp Positive Invalid Interpretation Code FT BB Subsection ABSC Gel Interp Negative (01/11/23 10:00 AM) Normal [facility] BB Subsection CBC w/IndicesOrdered By: López Jorgensen on 01-11-2023 Erythrocyte distribution width (RBC) [Ratio] 13.4 % Normal 10.9-14.2 [facility] [employer] Comment on above: Performed By: #### 2 [id number], 62540690, 300470115, 9664929950, 444595708, 696784599, 6532369, 5355411, 4798258 #### [facility] [address] [place] [address] Hematocrit (Bld) [Volume fraction] 34.4 % [facility] [employer] Comment on above: Performed By: #### 2 997724381, 23166153, 855508348, 9756495279, 235312976, 560227755, 3043912, 7557820, 0047701 #### [facility] [address] [place] [address] Hemoglobin (Bld) [Mass/Vol] 11.7 g/dL [facility] [employer] Comment on above: Performed By: #### 2 166829442, 58538207, 108940463, 3755672989, 905336303, 135145544, 9123429, 2597172, 4816382 #### [facility] [address] [place] [address] MCH (RBC) [Entitic mass] 31.7 pg Normal 27.0-34.0 [facility] [employer] Comment on above: Performed By: #### 2 678888744, 88845889, 380625976, 2261711374, 546009368, 937212164, 1949580, 0798924, 8599742 #### [facility] [address] [place] [address] MCHC (RBC) [Mass/Vol] 33.9 g/dL Normal 31.4-36.0 [facility] [employer] Comment on above: Performed By: #### 2 926186567, 13626543, 979406108, 9973348068, 675395008, 678380879, 0633885, 2264769, 2989175 #### [facility] [address] [place] [address] MCV (RBC) [Entitic vol] 93.3 fL Normal 80.0-100.0 [facility] Comment on above: Performed By: #### 2 633861928, 02090213, 060127120, 3615867206, 238268819, 907465487, 3699876, 0017888, 0036410 #### [facility] [address] [place] [address] Platelet mean volume (Bld) [Entitic vol] 8.0 fL Normal 6.4-10.8 [facility] Comment on above: Performed By: #### 2 518019215, 79776676, 670004911, 9766477955, 852114867, 958899694, 0388035, 0101890, 0893267 #### [facility] [address] [place] [address] Platelets (Bld) [#/Vol] 171.0 E9/L Normal 150.0-500.0 [facility] Comment on above: Performed By: #### 2 350645148, 84106646, 391097407, 6920664845, 677666335, 394304220, 5438654, 7258240, 8458228 #### [facility] [address] [place] [address] RBC (Bld) [#/Vol] 3.7 E12/L Low 4.3-5.9 [facility] Comment on above: Performed By: #### 2 691348103, 15555329, 441273277, 5717562100, 709931627, 143069346, 9643919, 9031859, 3316384 #### [facility] [address] [place] [address] WBC corrected for nucl RBC Auto (Bld) [#/Vol] 11.7 E9/L High 4.0-11.0 FT [facility] Comment on above: Performed By: #### 2 066914937, 70717616, 827970407, 8118731854, 529352389, 634571229, 9588289, 9320224, 9826781 #### [facility] [address] [place] [address] CBC without diffon Platelets (Bld) [#/Vol] 171 10*3/uL [facility] Consent for Treatmenton Consent for Treatment [id number] .00TIFF Normal [facility] HIV 1&2 AB/AG Screen (P24 AG )on 01-11-2023 HIV 1&2 AB/AG Non-Reactive [facility] Hepatitis B surface antigeno n 01-11-2023 Hepatitis B Surface Antigen Negative [facility] Hepatitis C(HCV) Ab w/ Refle x to PCRon 01-11-2023 HCV Ab Ql (S) Non-Reactive [facility] [id number] By: Liilana Dumont on 01-11-2023 HbA1c (Bld) [Mass fraction] 4.9 % Normal <=5.9 [facility] [employer] Comment on above: Performed By: #### 2 [id number], 70691061, 992685119, 3745323827, 165294648, 191613457, 0039936, 5856525, 1154411 #### [facility] [address] [place] [address] No Panel Informationon 01-11 [facility] Physician Orderon 01-11-2023 Physician Order [id number] .00TIFF Normal [facility] Rubella IGG immune statuson 01-11-2023 Rubella immune IgG 5.68 [facility] Syphilis Total(Unknown Syphi lis Status)on 01-11-2023 Syphilis Non-Reactive [facility] TSHon 01-11-2023 Thyroid Stimulating (3Rd Generation) Hormone/ Tsh 1.30 [facility] TSHOrdered By: SYSTEM SYSTEM on 01-11-2023 TSH Qn 1.30 m[IU]/L Normal 0.34-5.60 [facility] Remisol Comment on above: Performed By: #### 2 [id number], 36882130, 969828511, 8248287832, 283886841, 178726485, 4143733, 4381126, 5440078 #### [facility] [address] [place] [address] Type and screenon 01-11-2023 Abo/Rh(D) Positive [employer] Basic Metabolic Panelon 07-13 Calcium [Mass/Vol] 9.1 mg/dL Normal 8.5-9.9 [facility] Comment on above: Performed By: #### C BCWD #### [facility] [address] [place] [address] Chloride [Moles/Vol] 105 mmol/L Normal 95-107 [facility] Comment on above: Performed By: #### C BCWD #### [facility] [address] [place] [address] CO2 [Moles/Vol] 22 mmol/L Normal 20-31 [facility] Comment on above: Performed By: #### C BCWD #### [facility] [address] [place] [address] Creatinine [Mass/Vol] 0.59 mg/dL Normal 0.50-0.90 [facility] Comment on above: Performed By: #### C BCWD #### [facility] [address] [place] [address] GFR >60.0 Normal >60 [facility] Comment on above: Result Comment: [...] secretion. Performed By: #### C BCWD #### [facility] [address] [place] [address] Glucose [Mass/Vol] 110 mg/dL Critically high 70-99 M [facility] Comment on above: Performed By: #### C BCWD #### [facility] [address] [place] [address] Potassium [Moles/Vol] 4.0 mmol/L Normal 3.4-4.9 [facility] Comment on above: Performed By: #### C BCWD #### [facility] [address] [place] [address] Sodium [Moles/Vol] 139 mmol/L Normal 135-144 [facility] Comment on above: Performed By: #### C BCWD #### [facility] [address] [place] [address] Urea nitrogen [Mass/Vol] 12 mg/dL Normal 6-20 [facility] Comment on above: Performed By: #### C BCWD #### [facility] [address] [place] [address] Anion gap [Moles/Vol] 12 mmol/L Normal 9-15 [facility] Comment on above: Performed By: #### C BCWD #### [facility] [address] [place] [address] CBC With Platelet and Differ entialon 07-31-2022 Abs Imm Granulocytes 0.0 K/uL Normal [facility] Comment on above: Performed By: #### C BCWD #### [facility] [address] [place] [address] Basophils (Bld) [#/Vol] 0.0 10*3/uL Normal 0.0-0.1 [facility] Comment on above: Performed By: #### C BCWD #### [facility] [address] [place] [address] Basophils/100 WBC (Bld) 0.4 % Normal 0.1-1.2 [facility] Comment on above: Performed By: #### C BCWD #### [facility] [address] [place] [address] Eosinophils (Bld) [#/Vol] 0.2 10*3/uL Normal 0.0-0.4 [facility] Comment on above: Performed By: #### C BCWD #### [facility] [address] [place] [address] Eosinophils/100 WBC (Bld) 2.6 % Normal 0.7-5.8 [facility] Comment on above: Performed By: #### C BCWD #### [facility] [address] [place] [address] Erythrocyte distribution width (RBC) [Ratio] 12.6 % Normal 11.7-14.4 [facility] Comment on above: Performed By: #### C BCWD #### [facility] [address] [place] [address] Hematocrit (Bld) [Volume fraction] 39.6 % Normal 37.0-47.0 [facility] Comment on above: Performed By: #### C BCWD #### [facility] [address] [place] [address] Hemoglobin (Bld) [Mass/Vol] 13.5 g/dL Normal 11.2-15.7 [facility] Comment on above: Performed By: #### C BCWD #### [facility] [address] [place] [address] Imm Granulocytes 0.3 % Normal [facility] Comment on above: Performed By: #### C BCWD #### [facility] [address] [place] [address] Lymphocytes (Bld) [#/Vol] 1.8 10*3/uL Normal 1.2-3.7 [facility] Comment on above: Performed By: #### C BCWD #### [facility] [address] [place] [address] Lymphocytes/100 WBC (Bld) 25.0 % Normal [facility] Comment on above: Performed By: #### C BCWD #### [facility] [address] [place] [address] MCH (RBC) [Entitic mass] 31.9 pg Normal 25.6-32.2 [facility] Comment on above: Performed By: #### C BCWD #### [facility] [address] [place] [address] MCHC 34.1 % Normal 32.2-35.5 [facility] Comment on above: Performed By: #### C BCWD #### [facility] [address] [place] [address] MCV (RBC) [Entitic vol] 93.6 fL Normal 79.4-94.8 [facility] Comment on above: Performed By: #### C BCWD #### [facility] [address] [place] [address] Monocytes (Bld) [#/Vol] 0.4 10*3/uL Normal 0.2-0.9 [facility] Comment on above: Performed By: #### C BCWD #### [facility] [address] [place] [address] Monocytes/100 WBC (Bld) 5.7 % Normal 4.7-12.5 [facility] Comment on above: Performed By: #### C BCWD #### [facility] [address] [place] [address] Neutrophils (Bld) [#/Vol] 4.9 10*3/uL Normal 1.6-6.1 [facility] Comment on above: Performed By: #### C BCWD #### [facility] [address] [place] [address] Neutrophils/100 WBC (Bld) 66.0 % Normal 34.0-71.1 [facility] Comment on above: Performed By: #### C BCWD #### [facility] [address] [place] [address] Platelets (Bld) [#/Vol] 193 10*3/uL Normal 182-369 [facility] Comment on above: Performed By: #### C BCWD #### [facility] [address] [place] [address] RBC (Bld) [#/Vol] 4.23 10*6/uL Normal 3.93-5.22 [facility] Comment on above: Performed By: #### C BCWD #### [facility] [address] [place] [address] WBC (Bld) [#/Vol] 7.4 10*3/uL Normal 4.0-10.0 [facility] Comment on above: Performed By: #### C BCWD #### [facility] [address] [place] [address] UR HCG Qualitativeon 023 Beta HCG ( test) Ql (U) Negative Normal Detects HC [facility] Comment on above: Performed By: #### C BCWD #### [facility] [address] [place] [address] Urinalysis, reflex to cultur minoo 07-31-2022 Urine Reflexed to Culture Not Indicated Normal [facility] Comment on above: Performed By: #### U AR #### [facility] [address] [place] [address] Bilirubin Ql (U) Negative Normal Negative [facility] Comment on above: Performed By: #### U AR #### [facility] [address] [place] [address] Clarity (U) Clear Normal Clear [facility] Comment on above: Performed By: #### U AR #### [facility] [address] [place] [address] Color (U) Yellow Normal Straw/Dinwiddie [facility] Comment on above: Performed By: #### U AR #### [facility] [address] [place] [address] Glucose Ql (U) Negative Normal Negative [facility] Comment on above: Performed By: #### U AR #### [facility] [address] [place] [address] Hemoglobin Ql (U) Large Normal Negative [facility] Comment on above: Performed By: #### U AR #### [facility] [address] [place] [address] Ketones Ql (U) Negative Normal Negative [facility] Comment on above: Performed By: #### U AR #### [facility] [address] [place] [address] Leukocyte esterase Test strip Ql (U) Negative Normal Negative [facility] Comment on above: Performed By: #### U AR #### [facility] [address] [place] [address] Nitrite Ql (U) Negative Normal Negative [facility] Comment on above: Performed By: #### U AR #### [facility] [address] [place] [address] pH (U) 5.5 [pH] Normal 5.0-9.0 [facility] Comment on above: Performed By: #### U AR #### [facility] [address] [place] [address] Protein Ql (U) Negative Normal Negative [facility] Comment on above: Performed By: #### U AR #### [facility] [address] [place] [address] Specific gravity (U) [Rel density] 1.015 Normal 1.005-1.03 [facility] Comment on above: Performed By: #### U AR #### [facility] [address] [place] [address] Urobilinogen Qn (U) 0.2 {Ginger'U}/dL Normal < 2.0 [facility] Comment on above: Performed By: #### U AR #### [facility] [address] [place] [address] Urine Microscopicon 08-01-19 23 Epithelial cells LM Ql (Urine sed) 3-5 Normal [facility] Comment on above: Performed By: #### U KAREEM #### [facility] [address] [place] [address] Urine Bacteria FEW Abnormal Negative [facility] Comment on above: Performed By: #### U KAREEM #### [facility] [address] [place] [address] Urine RBC 5-10 Abnormal 0-2 [facility] Comment on above: Performed By: #### U KAREEM #### [facility] [address] [place] [address] Urine WBC 0-2 Normal 0-5 [facility] Comment on above: Performed By: #### U KAREEM #### [facility] [address] [place] [address] Culture, Throaton 04-11-2022 Culture, Throat ORDER#: [id number] ORDERED BY: LILIANA CARROLL SOURCE: Throat Throat COLLECTED: 04/11/22 17:53 ANTIBIOTICS AT [facility].: RECEIVED : 04/11/22 21:00 Culture, Throat FINAL 04/14/22 10:27 Cult,Throat: Oral to, negative for Group A Strep and other beta Cult,Throat: hemolytic streptococci Performed at [address] [address] ([phone] Normal [facility] Comment on above: Performed By: #### C BCWD #### [facility] [address] [place] [address] XR SHOULDER LEFT (MIN 2 VIEW S)on [...] Vitor Riojas MD 11/29/21 Final result Normal [facility] Bacterial susceptibility hager el by Christin 10-28-2021 Bacterial susceptibility panel AKREEM ([facility]) ORDER#: [id number] ORDERED BY: SPRING OROZCO SOURCE: Incision COLLECTED: 10/28/21 16:45 ANTIBIOTICS AT [facility].: RECEIVED : 10/28/21 22:09 Culture, Wound Aerobic, Anaerobic FINAL 11/03/21 07:50 Direct Exam: NO NEUTROPHILS SEEN Direct Exam: NO BACTERIA SEEN Cult,Aerobe/Anaerobe: Mixed skin to Cult,Aerobe/Anaerobe: No anaerobic organisms isolated at 5 days. Performed at [address] [address] Acinetobacter species LIGHT GROWTH Acinetobacter baumannii LIGHT GROWTH Acineto sp. A. baumannii ANTIBIOTICS KAREEM Interp KAREEM Interp Ampicillin/Sulbactam <=2 S >=32 R Ceftriaxone 16 I 16 I Ciprofloxacin <=0.25 S <=0.25 S Gentamicin <=1 S <=1 S Tobramycin <=1 S <=1 S S=SUSCEPTIBLE I=INTERMEDIATE R=RESISTANT Normal [facility] Comment on above: Performed By: #### 5 0545-3 #### [facility] [address] [place] [address] Bacterial susceptibility panel KAREEM ([facility]) ORDER#: [id number] ORDERED BY: SPRING OROZCO SOURCE: Incision COLLECTED: 10/28/21 16:45 ANTIBIOTICS AT [facility].: RECEIVED : 10/28/21 22:09 Culture, Wound Aerobic, Anaerobic PRELIM 11/03/21 07:15 Direct Exam: NO NEUTROPHILS SEEN Direct Exam: NO BACTERIA SEEN Cult,Aerobe/Anaerobe: Mixed skin to Cult,Aerobe/Anaerobe: No anaerobic organisms isolated at 5 days. Performed at [facility] [address] [facility], [place] [id number] ([phone] Acinetobacter species LIGHT GROWTH Acineto sp. ANTIBIOTICS KAREEM Interp Ampicillin/Sulbactam <=2 S Ceftriaxone 16 I Ciprofloxacin <=0.25 S Gentamicin <=1 S Tobramycin <=1 S S=SUSCEPTIBLE I=INTERMEDIATE R=RESISTANT Normal [facility] Comment on above: Performed By: #### C BCWD #### [facility] [address] [place] [address] CBC With Platelet and Differ entialon 10-28-2021 Abs Imm Granulocytes 0.0 K/uL Normal [facility] Comment on above: Performed By: #### C BCWD #### [facility] [address] [place] [address] Basophils (Bld) [#/Vol] 0.0 10*3/uL Normal 0.0-0.1 [facility] Comment on above: Performed By: #### C BCWD #### [facility] [address] [place] [address] Basophils/100 WBC (Bld) 0.1 % Normal 0.1-1.2 [facility] Comment on above: Performed By: #### C BCWD #### [facility] [address] [facility] [place] [address] Eosinophils (Bld) [#/Vol] 0.3 10*3/uL Normal 0.0-0.4 [facility] [facility] Comment on above: Performed By: #### C BCWD #### [facility] [address] [place] [address] Eosinophils/100 WBC (Bld) 3.1 % Normal 0.7-5.8 [facility] Comment on above: Performed By: #### C BCWD #### [facility] [address] [place] [address] Erythrocyte distribution width (RBC) [Ratio] 12.8 % Normal 11.7-14.4 [facility] Comment on above: Performed By: #### C BCWD #### [facility] [address] [place] [address] Hematocrit (Bld) [Volume fraction] 40.9 % Normal 37.0-47.0 [facility] Comment on above: Performed By: #### C BCWD #### [facility] [address] [place] [address] Hemoglobin (Bld) [Mass/Vol] 13.6 g/dL Normal 11.2-15.7 [facility] Comment on above: Performed By: #### C BCWD #### [facility] [address] [place] [address] Imm Granulocytes 0.2 % Normal [facility] Comment on above: Performed By: #### C BCWD #### [facility] [address] [place] [address] Lymphocytes (Bld) [#/Vol] 1.8 10*3/uL Normal 1.2-3.7 [facility] Comment on above: Performed By: #### C BCWD #### [facility] [address] [place] [address] Lymphocytes/100 WBC (Bld) 16.5 % Normal [facility] Comment on above: Performed By: #### C BCWD #### [facility] [address] [place] [address] MCH (RBC) [Entitic mass] 31.1 pg Normal 25.6-32.2 [facility] Comment on above: Performed By: #### C BCWD #### [facility] [address] [place] [address] MCHC 33.3 % Normal 32.2-35.5 [facility] Comment on above: Performed By: #### C BCWD #### [facility] [address] [place] [address] MCV (RBC) [Entitic vol] 93.4 fL Normal 79.4-94.8 [facility] Comment on above: Performed By: #### C BCWD #### [facility] [address] [place] [address] Monocytes (Bld) [#/Vol] 0.6 10*3/uL Normal 0.2-0.9 [facility] Comment on above: Performed By: #### C BCWD #### [facility] [address] [place] [address] Monocytes/100 WBC (Bld) 5.2 % Normal 4.7-12.5 [facility] Comment on above: Performed By: #### C BCWD #### [facility] [address] [place] [address] Neutrophils (Bld) [#/Vol] 7.9 10*3/uL Critically high 1.6-6.1 [facility] Comment on above: Performed By: #### C BCWD #### [facility] [address] [place] [address] Neutrophils/100 WBC (Bld) 74.9 % Critically high 34.0-71.1 [facility] Comment on above: Performed By: #### C BCWD #### [facility] [address] [place] [address] Platelets (Bld) [#/Vol] 192 10*3/uL Normal 182-369 [facility] Comment on above: Performed By: #### C BCWD #### [facility] [address] [place] [address] RBC (Bld) [#/Vol] 4.38 10*6/uL Normal 3.93-5.22 [facility] Comment on above: Performed By: #### C BCWD #### [facility] [address] [place] [address] WBC (Bld) [#/Vol] 10.6 10*3/uL Critically high 4.0-10.0 [facility] Comment on above: Performed By: #### C BCWD #### [facility] [address] [place] [address] CBC with Auto Differentialon 10-28-2021 Basophils (Bld) [#/Vol] 0.0 10*3/uL 0 - 0.1 K/uL [facility] Basophils/100 WBC (Bld) 0.1 % 0.1 - 1.2 % [facility] Eosinophils (Bld) [#/Vol] 0.3 10*3/uL 0 - 0.4 K/uL [facility] Eosinophils/100 WBC (Bld) 3.1 % 0.7 - 5.8 % [facility] Hematocrit (Bld) [Volume fraction] 40.9 % 37 - 47 % [facility] Hemoglobin (Bld) [Mass/Vol] 13.6 g/dL 11.2 - 15.7 g/dL [facility] Immature granulocytes (Bld) [#/Vol] 0.0 10*3/uL [facility] Immature granulocytes/100 WBC (Bld) 0.2 % [facility] Interpretation and review of laboratory results Abnormal [facility] Lymphocytes (Bld) [#/Vol] 1.8 10*3/uL 1.2 - 3.7 K/uL [facility] Lymphocytes/100 WBC (Bld) 16.5 % [facility] MCH (RBC) [Entitic mass] 31.1 pg 25.6 - 32.2 pg [facility] MCHC (RBC) [Mass/Vol] 33.3 % 32.2 - 35.5 % [facility] MCV (RBC) [Entitic vol] 93.4 fL 79.4 - 94.8 fL [facility] Monocytes (Bld) [#/Vol] 0.6 10*3/uL 0.2 - 0.9 K/uL [facility] Monocytes/100 WBC (Bld) 5.2 % 4.7 - 12.5 % [facility] Neutrophils Absolute 7.9 K/uL High 1.6 - 6 .1 K/uL [facility] Neutrophils/100 WBC (Bld) 74.9 % High 34 - 71.1 % [facility] Platelet distribution width (Bld) [Ratio] 12.8 % 11.7 - 14.4 % [facility] Platelets (Bld) [#/Vol] 192 10*3/uL 182 - 369 K/uL [facility] RBC (Bld) [#/Vol] 4.38 10*6/uL [facility] WBC (Bld) [#/Vol] 10.6 10*3/uL High 4 - 10 K/uL [facility] CT ABDOMEN PELVIS W IV [...] Melodie Ocampo MD 10/28/21 Final result Normal [facility] CT ABDOMEN PELVIS W IV CONTR AST Additional Contrast? Noneon 10-28-2021 No acute abdominopelvic abnormality. [facility] RADIOLOGY EXAMINATION: CT OF THE ABDOMEN [...] or fluid at the surgical site. [facility] Melodie Ocampo MD - 10/28/2021 [...] surgical site. IMPRESSION: No acute abdominopelvic abnormality. [facility]: Radiology Study observation (narrative) [facility] [employer] Phone: CT ABDOMEN PELVIS W IV CONTR AST Additional Contrast? NoneOrdered By: Melodie Ocampo on 10-28-2021 [facility] [employer] Phone: Comprehensive Metabolic Pane l reflex Mgon 10-28-2021 Albumin [Mass/Vol] 4.4 g/dL Normal 3.5-4.6 [facility] Comment on above: Performed By: #### C MPX #### [facility] [address] [place] [address] ALP [Catalytic activity/Vol] 118 U/L Normal 40-130 [facility] Comment on above: Performed By: #### C MPX #### [facility] [address] [place] [address] ALT [Catalytic activity/Vol] 6 U/L Normal 0-33 [facility] Comment on above: Performed By: #### C MPX #### [facility] [address] [place] [address] Anion gap [Moles/Vol] 11 mmol/L Normal 9-15 [facility] Comment on above: Performed By: #### C MPX #### [facility] [address] [place] [address] AST [Catalytic activity/Vol] 8 U/L Normal 0-35 [facility] Comment on above: Performed By: #### C MPX #### [facility] [address] [place] [address] Bilirubin [Mass/Vol] 0.4 mg/dL Normal 0.2-0.7 [facility] Comment on above: Performed By: #### C MPX #### [facility] [address] [place] [address] Calcium [Mass/Vol] 9.7 mg/dL Normal 8.5-9.9 [facility] Comment on above: Performed By: #### C MPX #### [facility] [address] [place] [address] Chloride [Moles/Vol] 104 mmol/L Normal 95-107 [facility] Comment on above: Performed By: #### C MPX #### [facility] [address] [place] [address] CO2 [Moles/Vol] 23 mmol/L Normal 20-31 [facility] Comment on above: Performed By: #### C MPX #### [facility] [address] [place] [address] Creatinine [Mass/Vol] 0.60 mg/dL Normal 0.50-0.90 [facility] Comment on above: Performed By: #### C MPX #### [facility] [address] [place] [address] GFR >60.0 Normal >60 [facility] Comment on above: Result Comment: >60 mL/min/1.73m2 EGFR, calc. for ages 18 and older using the MDRD formula (not corrected for weight), is valid for stable renal function. Performed By: #### C MPX #### [facility] [address] [place] [address] GFR/1.73 sq M.predicted among blacks MDRD (S/P/Bld) [Vol rate/Area] mL/min/{1.73_m2} Normal >60 [facility] Comment on above: Result Comment: >60 mL/min/1.73m2 EGFR, calc. for ages 18 and older using the MDRD formula (not corrected for weight), is valid for stable renal function. Performed By: #### C MPX #### [facility] [address] [place] [address] Globulin (S) [Mass/Vol] 3.1 g/dL Normal 2.3-3.5 [facility] Comment on above: Performed By: #### C MPX #### [facility] [address] [place] [address] Glucose [Mass/Vol] 95 mg/dL Normal 70-99 [facility] Comment on above: Performed By: #### C MPX #### [facility] [address] [place] [address] Magnesium [Moles/Vol] 4.2 mmol/L Normal 3.4-4.9 [facility] Comment on above: Performed By: #### C MPX #### [facility] [address] [place] [address] Protein [Mass/Vol] 7.5 g/dL Normal 6.3-8.0 [facility] Comment on above: Performed By: #### C MPX #### [facility] [address] [place] [address] Sodium [Moles/Vol] 138 mmol/L Normal 135-144 [facility] Comment on above: Performed By: #### C MPX #### [facility] [address] [place] [address] Urea nitrogen [Mass/Vol] 14 mg/dL Normal 6-20 [facility] Comment on above: Performed By: #### C MPX #### [facility] [address] [place] [address] Comprehensive Metabolic Pane l w/ Reflex to MGon 10-28-2021 Albumin [Mass/Vol] 4.4 g/dL 3.5 - 4.6 g/dL [facility] ALP (Bld) [Catalytic activity/Vol] 118 U/L 40 - 130 U/L [facility] ALT [Catalytic activity/Vol] 6 U/L 0 - 33 U/L [facility] Anion gap [Moles/Vol] 11 mmol/L [facility] AST [Catalytic activity/Vol] 8 U/L 0 - 35 U/L [facility] Bilirubin [Mass/Vol] 0.4 mg/dL 0.2 - 0 .7 mg/dL [facility] Calcium [Mass/Vol] 9.7 mg/dL 8.5 - 9.9 mg/dL [facility] Chloride [Moles/Vol] 104 mmol/L [facility] CO2 [Moles/Vol] 23 mmol/L [facility] Creatinine [Mass/Vol] 0.6 mg/dL 0.5 - 0.9 mg/dL [facility] Free PSA/Total PSA [Mass fraction] 7.5 g/dL 6.3 - 8 g/dL [facility] GFR >60.0 60 - PINF [facility] Comment on above: >60 mL/min/1.73m2 EG FR, calc. for ages 18 and older using the MDRD formula (not corrected for weight), is valid for stable renal function. GFR Non- >60.0 60 - PINF [facility] Comment on above: >60 mL/min/1.73m2 EG FR, calc. for ages 18 and older using the MDRD formula (not corrected for weight), is valid for stable renal function. Globulin (S) [Mass/Vol] 3.1 g/dL 2.3 - 3.5 g/dL [facility] Glucose [Mass/Vol] 95 mg/dL 70 - 99 mg/dL [facility] Potassium reflex Magnesium 4.2 [facility] Sodium [Moles/Vol] 138 mmol/L [facility] Urea nitrogen (BldV) [Mass/Vol] 14 mg/dL 6 - 20 mg/dL [facility] Culture, Wound AerobicShen 10-28-2021 Culture, Wound Aerobic, Anaerobic ORDER#: [id number] ORDERED BY: SPRING OROZCO SOURCE: Incision COLLECTED: 10/28/21 16:45 ANTIBIOTICS AT [place].: RECEIVED : 10/28/21 22:09 Culture, Wound Aerobic, Anaerobic PRELIM 11/01/21 08:12 Direct Exam: NO NEUTROPHILS SEEN Direct Exam: NO BACTERIA SEEN Cult,Aerobe/Anaerobe: GRAM NEGATIVE RODS Cult,Aerobe/Anaerobe: LIGHT GROWTH Cult,Aerobe/Anaerobe: Mixed skin to Cult,Aerobe/Anaerobe: No anaerobic organisms isolated at 3 days. Performed at [address] [address] Normal [facility] Comment on above: Performed By: #### I CWAN #### [facility] [address] [facility] [id number] , Urineon 2 Beta HCG ( test) Ql (U) Negative Detects HCG level >20 MIU/mL [facility] UR HCG Qualitativeon 022 Beta HCG ( test) Ql (U) Negative Normal Detects HC [facility] Comment on above: Performed By: #### C BCWD #### [facility] [address] [facility] [address] Urinalysis with Reflex to Cu ltureon 10-28-2021 Bilirubin Urine Negative Negative [facility] Blood, Urine Negative Negative [facility] Clarity, UA Clear Clear [facility] Color, UA Yellow Straw/Yellow [facility] Glucose, Ur Negative Negative mg/dL [facility] Ketones Ql (U) Negative Negative mg/dL [facility] Leukocyte esterase Test strip Ql (U) Negative Negative [facility] Nitrite, Urine Negative Negative [facility] pH, UA 5.5 5 - 9 [facility] Protein, UA Negative Negative mg/dL [facility] Specific [place], UA 1.015 1.005 - 1.03 [facility] Urine Reflex to Culture Not Indicated [facility] Urobilinogen, Urine 0.2 NINF [facility] Urinalysis, reflex to cultur minoo 10-28-2021 Bilirubin Ql (U) Negative Normal Negative [facility] Comment on above: Performed By: #### U AR #### [facility] [address] [place] [address] Clarity (U) Clear Normal Clear [facility] Comment on above: Performed By: #### U AR #### [facility] [address] [place] [address] Color (U) Yellow Normal Straw/Dinwiddie [facility] Comment on above: Performed By: #### U AR #### [facility] [address] [place] [address] Glucose Ql (U) Negative Normal Negative [facility] Comment on above: Performed By: #### U AR #### [facility] [address] [place] [address] Hemoglobin Ql (U) Negative Normal Negative [facility] Comment on above: Performed By: #### U AR #### [facility] [address] [place] [address] Ketones Ql (U) Negative Normal Negative [facility] Comment on above: Performed By: #### U AR #### [facility] [address] [place] [address] Leukocyte esterase Test strip Ql (U) Negative Normal Negative [facility] Comment on above: Performed By: #### U AR #### [facility] [address] [place] [address] Nitrite Ql (U) Negative Normal Negative [facility] Comment on above: Performed By: #### U AR #### [facility] [address] [place] [address] pH (U) 5.5 [pH] Normal 5.0-9.0 [facility] Comment on above: Performed By: #### U AR #### [facility] [address] [place] [address] Protein Ql (U) Negative Normal Negative [facility] Comment on above: Performed By: #### U AR #### [facility] [address] [place] [address] Specific gravity (U) [Rel density] 1.015 Normal 1.005-1.03 [facility] Comment on above: Performed By: #### U AR #### [facility] [address] [facility] [address] Urine Reflexed to Culture Not Indicated Normal [facility] Comment on above: Performed By: #### U AR #### [facility] [address] [place] [address] Urobilinogen Qn (U) 0.2 {Ginger'U}/dL Normal < 2.0 [facility] Comment on above: Performed By: #### U AR #### [facility] [address] [facility] [address] Allergen, Food, Comprehensiv e Profile 08-31-2021 Allergen, Food, Barley IgE <0.10 Normal [facility] Allergen, Food, Beef IgE <0.10 [facility] Allergen, Food, Cabbage <0.10 [facility] Allergen, Food, Carrot <0.10 [facility] Allergen, Food, Chicken <0.10 [facility] Allergen, Food, Codfish IgE <0.10 [facility] Allergen, Food, Lagrange IgE <0.10 Normal [facility] Allergen, Food, Crab IgE <0.10 [facility] Allergen, Food, Egg White <0.10 [facility] Allergen, Food, Grape IgE <0.10 [facility] Allergen, Food, Lettuce IgE <0.10 Normal [facility] Allergen, Food, Milk (Cow) IgE <0.10 Normal [facility] Allergen, Food, Odin [place] <0.10 [facility] Allergen, Food, Oat IgE <0.10 [facility] Allergen, Food, [place] IgE <0.10 Normal [facility] Allergen, Food, Peanut IgE <0.10 [facility] Allergen, Food, Pepper C. annuum IgE <0.10 Normal [facility] Allergen, Food, Pork IgE <0.10 Normal [facility] Comment on above: Result Comment: [facility] [address] [place], [place] [id number] ([phone] Allergen, Food, Potato <0.10 Normal [facility] Allergen, Food, Rice IgE <0.10 Normal [facility] Allergen, Food, [place] IgE <0.10 Normal [facility] Allergen, Food, Shrimp IgE <0.10 Normal [facility] Allergen, Food, Soybean IgE <0.10 Normal [facility] Allergen, Food, Tomato IgE <0.10 Normal [facility] Allergen, Food, Tuna IgE <0.10 Normal [facility] Allergen, Food, Wheat IgE <0.10 Normal [facility] Comment on above: Result Comment: ALLERGEN, [...] even anaphylaxis. Immunoglobulin E 53 IU/mL Normal [facility] Comment on above: Result Comment: [facility] [address] [place], [place] [id number] ([phone] CBC With Platelet and Differ entialon 08-21-2021 Abs Imm Granulocytes 0.0 K/uL Normal [facility] Comment on above: Performed By: #### C BCWD #### [facility] [address] [place] [address] Basophils (Bld) [#/Vol] 0.0 10*3/uL Normal 0.0-0.1 [facility] Comment on above: Performed By: #### C BCWD #### [facility] [address] [place] [address] Basophils/100 WBC (Bld) 0.3 % Normal 0.1-1.2 [facility] Comment on above: Performed By: #### C BCWD #### [facility] [address] [place] [address] Eosinophils (Bld) [#/Vol] 0.2 10*3/uL Normal 0.0-0.4 [facility] Comment on above: Performed By: #### C BCWD #### [facility] [address] [place] [address] Eosinophils/100 WBC (Bld) 2.4 % Normal 0.7-5.8 [facility] Comment on above: Performed By: #### C BCWD #### [facility] [address] [place] [address] Erythrocyte distribution width (RBC) [Ratio] 12.6 % Normal 11.7-14.4 [facility] Comment on above: Performed By: #### C BCWD #### [facility] [address] [place] [address] Hematocrit (Bld) [Volume fraction] 41.7 % Normal 37.0-47.0 [facility] Comment on above: Performed By: #### C BCWD #### [facility] [address] [place] [address] Hemoglobin (Bld) [Mass/Vol] 13.6 g/dL Normal 11.2-15.7 [facility] Comment on above: Performed By: #### C BCWD #### [facility] [address] [place] [address] Imm Granulocytes 0.3 % Normal [facility] Comment on above: Performed By: #### C BCWD #### [facility] [address] [place] [address] Lymphocytes (Bld) [#/Vol] 2.2 10*3/uL Normal 1.2-3.7 [facility] Comment on above: Performed By: #### C BCWD #### [facility] [address] [place] [address] Lymphocytes/100 WBC (Bld) 25.3 % Normal [facility] Comment on above: Performed By: #### C BCWD #### [facility] [address] [place] [address] MCH (RBC) [Entitic mass] 30.8 pg Normal 25.6-32.2 [facility] Comment on above: Performed By: #### C BCWD #### [facility] [address] [place] [address] MCHC 32.6 % Normal 32.2-35.5 [facility] Comment on above: Performed By: #### C BCWD #### [facility] [address] [place] [address] MCV (RBC) [Entitic vol] 94.6 fL Normal 79.4-94.8 [facility] Comment on above: Performed By: #### C BCWD #### [facility] [address] [place] [address] Monocytes (Bld) [#/Vol] 0.4 10*3/uL Normal 0.2-0.9 [facility] Comment on above: Performed By: #### C BCWD #### [facility] [address] [place] [address] Monocytes/100 WBC (Bld) 4.4 % Low 4.7-12.5 [facility] Comment on above: Performed By: #### C BCWD #### [facility] [address] [place] [address] Neutrophils (Bld) [#/Vol] 5.8 10*3/uL Normal 1.6-6.1 [facility] Comment on above: Performed By: #### C BCWD #### [facility] [address] [place] [address] Neutrophils/100 WBC (Bld) 67.3 % Normal 34.0-71.1 [facility] Comment on above: Performed By: #### C BCWD #### [facility] [address] [place] [address] Platelets (Bld) [#/Vol] 200 10*3/uL Normal 182-369 [facility] Comment on above: Performed By: #### C BCWD #### [facility] [address] [place] [address] RBC (Bld) [#/Vol] 4.41 10*6/uL Normal 3.93-5.22 [facility] Comment on above: Performed By: #### C BCWD #### [facility] [address] [place] [address] WBC (Bld) [#/Vol] 8.6 10*3/uL Normal 4.0-10.0 [facility] Comment on above: Performed By: #### C BCWD #### [facility] [address] [place] [address] CBC with Auto Differentialon 08-21-2021 Basophils (Bld) [#/Vol] 0.0 10*3/uL 0.0 - 0.1 K/uL [facility] Basophils/100 WBC (Bld) 0.3 % 0.1 - 1.2 % [facility] Eosinophils (Bld) [#/Vol] 0.2 10*3/uL 0.0 - 0.4 K/uL [facility] Eosinophils/100 WBC (Bld) 2.4 % 0.7 - 5.8 % [facility] Hematocrit (Bld) [Volume fraction] 41.7 % 37.0 - 47.0 % [facility] Hemoglobin (Bld) [Mass/Vol] 13.6 g/dL 11.2 - 15.7 g/dL [facility] Immature granulocytes (Bld) [#/Vol] 0.0 10*3/uL [facility] Immature granulocytes/100 WBC (Bld) 0.3 % [facility] Interpretation and review of laboratory results Abnormal [facility] Lymphocytes (Bld) [#/Vol] 2.2 10*3/uL 1.2 - 3.7 K/uL [facility] Lymphocytes/100 WBC (Bld) 25.3 % [facility] MCH (RBC) [Entitic mass] 30.8 pg 25.6 - 32.2 pg [facility] MCHC (RBC) [Mass/Vol] 32.6 % 32.2 - 35.5 % [facility] MCV (RBC) [Entitic vol] 94.6 fL 79.4 - 94.8 fL [facility] Monocytes (Bld) [#/Vol] 0.4 10*3/uL 0.2 - 0.9 K/uL [facility] Monocytes/100 WBC (Bld) 4.4 % Low 4.7 - 12.5 % [facility] Neutrophils Absolute 5.8 K/uL 1.6 - 6 .1 K/uL [facility] Neutrophils/100 WBC (Bld) 67.3 % 34.0 - 71.1 % [facility] Platelet distribution width (Bld) [Ratio] 12.6 % 11.7 - 14.4 % [facility] Platelets (Bld) [#/Vol] 200 10*3/uL 182 - 369 K/uL [facility] RBC (Bld) [#/Vol] 4.41 10*6/uL [facility] WBC (Bld) [#/Vol] 8.6 10*3/uL 4.0 - 10.0 K/uL [facility] COVID-19on 08-21-2021 SARS-CoV-2 (COVID-19) RNA JOSIE+probe Ql (Unsp spec) Not detected Normal Not Detect [facility] Comment on above: Result Comment: [...] authorized laboratories. Fact sheet for Healthcare Providers: https://www.fda.gov/media/742207/download Fact sheet for Patients: https://www.fda.gov/media/995330/download METHODOLOGY: Isothermal Nucleic Acid Amplification Performed By: #### C BCWD #### [facility] [address] [place] [address] COVID-19, Rapidon 08-21-2021 SARS-CoV-2 (COVID-19) RNA JOSIE+probe Ql (Unsp spec) Not detected Not Detected [facility] Comment on above: Rapid NAAT: Negative results [...] authorized laboratories. Fact sheet for Healthcare Providers: https://www.fda.gov/media/275995/download Fact sheet for Patients: https://www.fda.gov/media/322732/download METHODOLOGY: Isothermal Nucleic Acid Amplification [facility] CT ABDOMEN PELVIS W [...] Some of this report was completed using [email or web address] voice-recognition technology and may include unintended errors [...] Mckay Solis MD 08/21/21 Final result Normal [facility] Comprehensive Metabolic Pane l reflex Mgon 08-21-2021 Albumin [Mass/Vol] 4.3 g/dL Normal 3.5-4.6 [facility] Comment on above: Performed By: #### C BCWD #### [facility] [address] [place] [address] ALP [Catalytic activity/Vol] 116 U/L Normal 40-130 [facility] Comment on above: Performed By: #### C BCWD #### [facility] [address] [place] [address] ALT [Catalytic activity/Vol] 8 U/L Normal 0-33 [facility] Comment on above: Performed By: #### C BCWD #### [facility] [address] [place] [address] Anion gap [Moles/Vol] 13 mmol/L Normal 9-15 [facility] Comment on above: Performed By: #### C BCWD #### [facility] [address] [place] [address] AST [Catalytic activity/Vol] 10 U/L Normal 0-35 [facility] Comment on above: Performed By: #### C BCWD #### [facility] [address] [place] [address] Bilirubin [Mass/Vol] mg/dL Normal 0.2-0.7 [facility] Comment on above: Performed By: #### C BCWD #### [facility] [address] [place] [address] Calcium [Mass/Vol] 9.3 mg/dL Normal 8.5-9.9 [facility] Comment on above: Performed By: #### C BCWD #### [facility] [address] [place] [address] Chloride [Moles/Vol] 105 mmol/L Normal 95-107 [facility] Comment on above: Performed By: #### C BCWD #### [facility] [address] [place] [address] CO2 [Moles/Vol] 22 mmol/L Normal 20-31 [facility] Comment on above: Performed By: #### C BCWD #### [facility] [address] [place] [address] Creatinine [Mass/Vol] 0.48 mg/dL Low 0.50-0.90 [facility] Comment on above: Performed By: #### C BCWD #### [facility] [address] [place] [address] GFR >60.0 Normal >60 [facility] Comment on above: Result Comment: >60 mL/min/1.73m2 EGFR, calc. for ages 18 and older using the MDRD formula (not corrected for weight), is valid for stable renal function. Performed By: #### C BCWD #### [facility] [address] [place] [address] GFR/1.73 sq M.predicted among blacks MDRD (S/P/Bld) [Vol rate/Area] mL/min/{1.73_m2} Normal >60 [facility] Comment on above: Result Comment: >60 mL/min/1.73m2 EGFR, calc. for ages 18 and older using the MDRD formula (not corrected for weight), is valid for stable renal function. Performed By: #### C BCWD #### [facility] [address] [place] [address] Globulin (S) [Mass/Vol] 2.5 g/dL Normal 2.3-3.5 [facility] Comment on above: Performed By: #### C BCWD #### [facility] [address] [place] [address] Glucose [Mass/Vol] 114 mg/dL Critically high 70-99 M [facility] Comment on above: Performed By: #### C BCWD #### [facility] [address] [place] [address] Magnesium [Moles/Vol] 3.6 mmol/L Normal 3.4-4.9 [facility] Comment on above: Performed By: #### C BCWD #### [facility] [address] [place] [address] Protein [Mass/Vol] 6.8 g/dL Normal 6.3-8.0 [facility] Comment on above: Performed By: #### C BCWD #### [facility] [address] [place] [address] Sodium [Moles/Vol] 140 mmol/L Normal 135-144 [facility] Comment on above: Performed By: #### C BCWD #### [facility] [address] [place] [address] Urea nitrogen [Mass/Vol] 10 mg/dL Normal 6-20 [facility] Comment on above: Performed By: #### C BCWD #### [facility] [address] [place] [address] Comprehensive Metabolic Pane l w/ Reflex to MGon 08-21-2021 Albumin [Mass/Vol] 4.3 g/dL 3.5 - 4.6 g/dL [facility] ALP (Bld) [Catalytic activity/Vol] 116 U/L 40 - 130 U/L [facility] ALT [Catalytic activity/Vol] 8 U/L 0 - 33 U/L [facility] Anion gap [Moles/Vol] 13 mmol/L [facility] AST [Catalytic activity/Vol] 10 U/L 0 - 35 U/L [facility] Bilirubin [Mass/Vol] mg/dL 0.2 - 0 .7 mg/dL [facility] Calcium [Mass/Vol] 9.3 mg/dL 8.5 - 9.9 mg/dL [facility] Chloride [Moles/Vol] 105 mmol/L [facility] CO2 [Moles/Vol] 22 mmol/L [facility] Creatinine [Mass/Vol] 0.48 mg/dL Low 0.50 - 0.90 mg/dL [facility] Free PSA/Total PSA [Mass fraction] 6.8 g/dL 6.3 - 8.0 g/dL [facility] GFR >60.0 >60 [facility] Comment on above: >60 mL/min/1.73m2 EG FR, calc. for ages 18 and older using the MDRD formula (not corrected for weight), is valid for stable renal function. GFR Non- >60.0 >60 [facility] Comment on above: >60 mL/min/1.73m2 EG FR, calc. for ages 18 and older using the MDRD formula (not corrected for weight), is valid for stable renal function. Globulin (S) [Mass/Vol] 2.5 g/dL 2.3 - 3.5 g/dL [facility] Glucose [Mass/Vol] 114 mg/dL High 70 - 99 mg/dL [facility] Interpretation and review of laboratory results Abnormal [facility] Potassium reflex Magnesium 3.6 [facility] Sodium [Moles/Vol] 140 mmol/L [facility] Urea nitrogen (BldV) [Mass/Vol] 10 mg/dL 6 - 20 mg/dL [facility] Lipaseon 08-21-2021 Lipase [Catalytic activity/Vol] 18 U/L Normal 12-95 [facility] Comment on above: Performed By: #### L IPAS #### [facility] [address] [id number] Lipase [Catalytic activity/Vol] 18 U/L 12 - 95 U/L [facility] No Panel Informationon 08-21 [facility] , Urineon 2 Beta HCG ( test) Ql (U) Negative Detects HCG level >20 MIU/mL [facility] UR HCG Qualitativeon 022 Beta HCG ( test) Ql (U) Negative Normal Detects [facility] Comment on above: Performed By: #### C BCWD #### [facility] [address] [place] [address] Urinalysis with Reflex to Cu ltureon 08-21-2021 Bilirubin Urine Negative Negative [facility] RS [facility] Blood, Urine Negative Negative [facility] Clarity, UA Clear Clear [facility] Color, UA Yellow Straw/Yellow [facility] Glucose, Ur Negative Negative mg/dL [facility] Ketones Ql (U) Negative Negative mg/dL [facility] Leukocyte esterase Test strip Ql (U) Negative Negative [facility] Nitrite, Urine Negative Negative [facility] pH, UA 5.5 [facility] Protein, UA Negative Negative mg/dL [facility] Specific Clover, UA <=1.005 [facility] Urine Reflex to Culture Not Indicated [facility] Urobilinogen, Urine 0.2 <2.0 E.U./dL [facility] Urinalysis, reflex to cultur minoo 08-21-2021 Bilirubin Ql (U) Negative Normal Negative [facility] Comment on above: Performed By: #### C BCWD #### [facility] [address] [place] [address] Clarity (U) Clear Normal Clear [facility] Comment on above: Performed By: #### C BCWD #### [facility] [address] [place] [address] [place] [address] Color (U) Yellow Normal Straw/Dinwiddie [facility] Comment on above: Performed By: #### C BCWD #### [facility] [address] [place] [address] Glucose Ql (U) Negative Normal Negative [facility] Comment on above: Performed By: #### C BCWD #### [facility] [address] [place] [address] Hemoglobin Ql (U) Negative Normal Negative [facility] Comment on above: Performed By: #### C BCWD #### [facility] [address] [place] [address] Ketones Ql (U) Negative Normal Negative [facility] Comment on above: Performed By: #### C BCWD #### [facility] [address] [place] [address] Leukocyte esterase Test strip Ql (U) Negative Normal Negative [facility] Comment on above: Performed By: #### C BCWD #### [facility] [address] [place] [address] Nitrite Ql (U) Negative Normal Negative [facility] Comment on above: Performed By: #### C BCWD #### [facility] [address] [place] [address] pH (U) 5.5 [pH] Normal 5.0-9.0 [facility] Comment on above: Performed By: #### C BCWD #### [facility] [address] [place] [address] Protein Ql (U) Negative Normal Negative [facility] Comment on above: Performed By: #### C BCWD #### [facility] [address] [place] [address] Specific gravity (U) [Rel density] <=1.005 Normal 1.005-1.03 [facility] Comment on above: Performed By: #### C BCWD #### [facility] [address] [place] [address] Urine Reflexed to Culture Not Indicated Normal [facility] Comment on above: Performed By: #### C BCWD #### [facility] [address] [place] [address] Urobilinogen Qn (U) 0.2 {Ginger'U}/dL Normal < 2.0 [facility] Comment on above: Performed By: #### C BCWD #### [facility] [address] [place] [address] CBC WITH AUTO DIFFERENTIALon 02-29-2020 Basophils (Bld) [#/Vol] 0.0 10*3/uL 0 - 0.2 K/uL [facility], [place] Basophils/100 WBC (Bld) 0.4 % [place] Eosinophils (Bld) [#/Vol] 0.2 10*3/uL 0 - 0.7 K/uL [place] Eosinophils/100 WBC (Bld) 2.6 % [place] Erythrocyte distribution width (RBC) [Ratio] 13.6 % 11.5 - 14.5 % [place] Hematocrit (Bld) [Volume fraction] 40.3 % 37 - 47 % [place] Hemoglobin (Bld) [Mass/Vol] 13.6 g/dL 12 - 16 g/dL [place] Lymphocytes (Bld) [#/Vol] 1.7 10*3/uL 1 - 4.8 K/uL [place] Lymphocytes/100 WBC (Bld) 21.0 % [place] MCH (RBC) [Entitic mass] 31.0 pg 27 - 31.3 pg [place] MCHC (RBC) [Mass/Vol] 33.9 % 33 - 37 % [place] MCV (RBC) [Entitic vol] 91.6 fL 82 - 100 fL [place] Monocytes (Bld) [#/Vol] 0.4 10*3/uL 0.2 - 0.8 K/uL [place] Monocytes/100 WBC (Bld) 4.6 % [place] Neutrophils Absolute 5.6 K/uL 1.4 - 6 .5 K/uL [place] Neutrophils/100 WBC (Bld) 71.4 % [place] Platelets (Bld) [#/Vol] 195 10*3/uL 130 - 400 K/uL [place] RBC (Bld) [#/Vol] 4.40 10*6/uL [place] WBC (Bld) [#/Vol] 7.9 10*3/uL 4.8 - 10.8 K/uL [place] COVID-19on 02-29-2020 SARS-CoV-2, NAAT Not Detected Not Detected [place] Comment on above: Rapid NAAT: Negative [...] authorized laboratories. Fact sheet for Healthcare Providers: https://www.fda.gov/media/561762/download Fact sheet for Patients: https://www.fda.gov/media/339552/download METHODOLOGY: Isothermal Nucleic Acid Amplification POC UR-QUALon 02-11 Beta HCG ( test) Ql (U) Negative Negative [place] Lot Number [id number] [place] Negative QC Pass/Fail Pass [place] Positive QC Pass/Fail Pass [place] Hemoglobinon 11-03-2019 Hemoglobin (Bld) [Mass/Vol] 11.2 g/dL Low 12 - 16 g/dL [place] Interpretation and review of laboratory results Abnormal [place] RPRon 11-03-2019 Reagin Ab RPR Ql (S) Non-reactive Non-reactive [place] CBC auto differentialon 10-13 Basophils (Bld) [#/Vol] 0.0 10*3/uL 0 - 0.2 K/uL [place] Basophils/100 WBC (Bld) 0.3 % [place] Eosinophils (Bld) [#/Vol] 0.1 10*3/uL 0 - 0.7 K/uL [place] Eosinophils/100 WBC (Bld) 1.2 % [place] Erythrocyte distribution width (RBC) [Ratio] 13.4 % 11.5 - 14.5 % [place] Hematocrit (Bld) [Volume fraction] 34.9 % Low 37 - 47 % [place] Hemoglobin (Bld) [Mass/Vol] 11.7 g/dL Low 12 - 16 g/dL [place] Interpretation and review of laboratory results Abnormal [place] Lymphocytes (Bld) [#/Vol] 1.4 10*3/uL 1 - 4.8 K/uL [place] Lymphocytes/100 WBC (Bld) 11.4 % [place] MCH (RBC) [Entitic mass] 31.2 pg 27 - 31.3 pg [place] MCHC (RBC) [Mass/Vol] 33.6 % 33 - 37 % [place] MCV (RBC) [Entitic vol] 93.0 fL 82 - 100 fL [place] Monocytes (Bld) [#/Vol] 0.5 10*3/uL 0.2 - 0.8 K/uL [place] Monocytes/100 WBC (Bld) 4.2 % [place] Neutrophils Absolute 10.1 K/uL High 1.4 - 6 .5 K/uL [place] Neutrophils/100 WBC (Bld) 82.9 % [place] Platelets (Bld) [#/Vol] 191 10*3/uL 130 - 400 K/uL [place] RBC (Bld) [#/Vol] 3.75 10*6/uL Low [place] WBC (Bld) [#/Vol] 12.1 10*3/uL High 4.8 - 10.8 K/uL [place] Comprehensive Metabolic Pane fortunato 11-02-2019 Albumin [Mass/Vol] 3.2 g/dL Low 3.5 - 4.6 g/dL [place] ALP [Catalytic activity/Vol] 147 U/L High 40 - 130 U/L [place] ALT [Catalytic activity/Vol] 6 U/L 0 - 33 U/L [place] Anion gap [Moles/Vol] 10 mmol/L [place] AST [Catalytic activity/Vol] 7 U/L 0 - 35 U/L [place] Bilirubin Ql (U) <0.2 0.2 - 0.7 mg/dL [place] Calcium [Mass/Vol] 8.4 mg/dL Low 8.5 - 9.9 mg/dL [place] Chloride [Moles/Vol] 104 mmol/L [place] CO2 [Moles/Vol] 21 mmol/L [place] Creatinine [Mass/Vol] 0.3 mg/dL Low 0.5 - 0.9 mg/dL [place] GFR >60.0 >60 [place] Comment on above: >60 mL/min/1.73m2 EG FR, calc. for ages 18 and older using the MDRD formula (not corrected for weight), is valid for stable renal function. GFR Non- >60.0 >60 [place] Comment on above: >60 mL/min/1.73m2 EG FR, calc. for ages 18 and older using the MDRD formula (not corrected for weight), is valid for stable renal function. Globulin (S) [Mass/Vol] 2.8 g/dL 2.3 - 3.5 g/dL [place] Glucose [Mass/Vol] 103 mg/dL High 70 - 99 mg/dL [place] Interpretation and review of laboratory results Abnormal [place] Potassium [Moles/Vol] 3.9 mmol/L [place] Protein [Mass/Vol] 6.0 g/dL Low 6.3 - 8 g/dL [place] Sodium [Moles/Vol] 135 mmol/L [place] Urea nitrogen [Mass/Vol] 8 mg/dL 6 - 20 mg/dL [place] DRUG SCREEN MULTI URINEon Amphetamine Screen, Urine Negative Negative <1000 ng/mL [place] Barbiturate Screen, Ur Negative Negative < 200 ng/mL [place] Benzodiazepine Screen, Urine Negative Negative < 200 ng/mL [place] Cannabinoid Scrn, Ur Negative Negativ e < 50 ng/mL [place] Cocaine Metabolite Screen, Urine Negative Negative < 300 ng/mL [place] Drug Screen Comment: see below [place] Comment on above: This method is a scr eening test to detect only these drug classes as part of a medical workup. Confirmatory testing by another method should be ordered if clinically indicated. Methadone Screen, Urine Negative Negative <300 ng/mL [place] Comment on above: Effective: 10/20/18 New Test for Qualitative Drug Screen. Opiate Scrn, Ur Negative Negative < 300 ng/mL [place] Oxycodone Urine Negative Negative <10 0 ng/mL [place] Comment on above: Effective: 10/20/18 New Test for Qualitative Drug Screen. PCP Screen, Urine Negative Negative < 25 ng/mL [place] Propoxyphene Scrn, Ur Negative Negative <300 ng/mL [place] Comment on above: Effective: 10/20/18 New Test for Qualitative Drug Screen. Hepatitis B surface antigeno n 11-02-2019 Hep B S Ag Interp Non-reactive [place] Rubella antibody, IgGon 10-13 Rubella Antibody IgG 69.5 IU/mL [place] Comment on above: Patient's result ind icates immunity. Default Normal Ranges >=10 Presumed Immune <10 Presumed Not immune TYPE AND SCREENon 11-02-2019 ABO/Rh Positive [place] Urinalysison 11-02-2019 Bilirubin Urine Negative Negative [place] Blood, Urine Negative Negative [place] Clarity, UA Clear Clear [place] Color, UA Yellow Straw/Yellow [place] Glucose, Ur Negative Negative mg/dL [place] Ketones Ql (U) Negative Negative mg/dL [place] Leukocyte esterase Test strip Ql (U) Negative Negative [place] Nitrite, Urine Negative Negative [place] pH, UA 7.5 [place] Protein (U) [Mass/Vol] Negative Negative mg/dL [place] Specific Clover, UA 1.020 [place] Urobilinogen, Urine 0.2 <2.0 E.U./dL [place] Otheron 06-19-2019 APPROPRIATE GROWTH SINCE LAST SONOGRAM. [place] Sonogram #: 1 Presentation: Transverse, head [...] the amniotic fluid is within normal limits. [facility] [place], [place] Manny, Chpo Incoming Radiant Results From [facility] [facility] - 06/19/2019 5:09 PM EDT Sonogram #: [...] limits. IMPRESSION: APPROPRIATE GROWTH SINCE LAST SONOGRAM. [employer] US OB LESS THAN 14 WEEKS SIN GLE OR FIRST GESTATIONon 04-14-2019 THERE IS A SINGLE IU P WITH ESTIMATED GESTATIONAL AGE BASED UPON CROWN-RUMP LENGTH OF 10 WEEKS 2 DAYS +/- 1 WEEK WITH HEART RATE OF 155 BPM. ANATOMY IS NOT ASSESSED DUE TO EARLY GESTATIONAL AGE. THE RIGHT OVARY IS SURGICALLY ABSENT. THE LEFT OVARY SUBMITTED VISUALIZED. [employer] [place] TRANSABDOMINAL EXAMINATION OF THE PELVIS CLINICAL DATA: [...] ovary is not visualized. No free fluid. [facility] Chpo Incoming Radiant Results From [employer] - 04/14/2019 4:16 PM EST TRANSABDOMINAL EXAMINATION [...] SURGICALLY ABSENT. THE LEFT OVARY SUBMITTED VISUALIZED. [facility] PROGRESSon 09-30-2018 PROGRESS HNO ID: [id number] Author: Maranda Parker (Christian) Vimal Service: ? Author Type: STRUCTURAL DESIGN ENGINEER Type: Progress Notes Filed: 09/30/2018 3:29 PM [...] OD September 30, 2018 2:08 PM Normal [facility] PROGRESSon 04-24-2018 PROGRESS HNO ID: [id number] Author: Maranda Celis Service: ? Author Type: STRUCTURAL DESIGN ENGINEER Type: Progress Notes Filed: 04/24/2018 3:32 PM [...] OD April 24, 2018 3:31 PM Normal [facility] Office Visit (Urgent Care)on 08-21-2017 Office Visit (Urgent Care) Chief Complaint Rash History of Present [id number] female who 2 hours ago was sitting [...] 08/21/2017 5:38:10 PM Vitals Vital Signs Recorded: [id number] 05:22VUPherkwejgzl65. 5 FHeart [id number] [id number] Height5 ft 3 daZhzlig484 lb BMI [id number] Calculated1.83O2 Montzapidg87Nvmw Scale0 Physical ExamPatient appears in no apparent [...] 160 cm Sulema Teran DO Work Phone: [facility] 12-16-2021 07:12-0400 Body mass index (BMI) [Ratio] 31.89 kg/m2 Sulema Teran DO Work Phone: [facility] 12-16-2021 07:12-0400 Body temperature 98.91 [degF] Sulema Teran DO Work Phone: [facility] 12-16-2021 07:12-0400 Body weight 81.65 kg Sulema Teran DO Work Phone: [facility] 12-16-2021 07:12-0400 Diastolic blood pressure 84 mm[Hg] Sulema Teran DO Work Phone: [facility] 12-16-2021 07:12-0400 Heart rate 104 /min Sulema Teran DO Work Phone: [facility] 12-16-2021 07:12-0400 Respiratory rate 18 /min Sulema Teran DO Work Phone: [facility] [employer] 12-16-2021 07:12-0400 SaO2% (BldA) [Mass fraction] 98 % Sulema Teran DO Work Phone: [facility] [employer] 12-16-2021 07:12-0400 Systolic blood pressure 127 mm[Hg] Sulema Teran DO Work Phone: [facility] [employer] 10-28-2021 15:43-0400 Body height 160 cm Nikki Martha-David PA-C Work Phone: [facility] [employer] 10-28-2021 15:43-0400 Body mass index (BMI) [Ratio] 31.89 kg/m2 Nikki Martha-David PA-C Work Phone: [facility] [employer] 10-28-2021 15:43-0400 Body temperature 98.1 [degF] Nikki Martha-David PA-C Work Phone: [facility] [employer] 10-28-2021 15:43-0400 Body weight 81.65 kg Nikki Martha-David PA-C Work Phone: [facility] [employer] 10-28-2021 15:43-0400 Diastolic blood pressure 81 mm[Hg] Nikki Martha-David PA-C Work Phone: [facility] [employer] 10-28-2021 15:43-0400 Heart rate 93 /min Nikki Martha-David PA-C Work Phone: [facility] [employer] 10-28-2021 15:43-0400 Respiratory rate 20 /min Nikki Martha-David PA-C Work Phone: [facility] [employer] 10-28-2021 15:43-0400 SaO2% (BldA) [Mass fraction] 98 % Nikki Martha-David PA-C Work Phone: [facility] 10-28-2021 15:43-0400 Systolic blood pressure 130 mm[Hg] Nikki Froilan PA-C Work Phone: [facility] [employer] 08-21-2021 06:21-0400 Body temperature 98.2 [degF] Penny Ritter MD Work Phone: [facility] 08-21-2021 06:21-0400 Diastolic blood pressure 58 mm[Hg] Penny Ritter MD Work Phone: [facility] 08-21-2021 06:21-0400 Heart rate 81 /min Penny Ritter MD Work Phone: [facility] 08-21-2021 06:21-0400 Respiratory rate 16 /min Penny Ritter MD Work Phone: [facility] 08-21-2021 06:21-0400 SaO2% (BldA) [Mass fraction] 97 % Penny Ritter MD Work Phone: [facility] 08-21-2021 06:21-0400 Systolic blood pressure 116 mm[Hg] Penny Ritter MD Work Phone: [facility] 08-21-2021 01:09-0400 Body height 160 cm Penny Ritter MD Work Phone: [facility] 08-21-2021 01:09-0400 Body mass index (BMI) [Ratio] 32.06 kg/m2 Penny Ritter MD Work Phone: [facility] 08-21-2021 01:09-0400 Body weight 82.1 kg Penny Ritter MD Work Phone: [facility] 11-05-2020 07:21-0400 Body temperature 98.1 [degF] Rebecca Gonzalez [employer] Work Phone: 11-05-2020 07:21-0400 Diastolic blood pressure 71 mm[Hg] Rebecca Gonzalez [employer] Phone: 11-05-2020 07:21-0400 Heart rate 94 /min Rebecca Gonzalez [employer] Phone: 11-05-2020 07:21-0400 Respiratory rate 18 /min Rebecca Gonzalez [employer] Phone: 11-05-2020 07:21-0400 SaO2% (BldA) [Mass fraction] 99 % Rebecca Gonzalez [employer] Phone: 11-05-2020 07:21-0400 Systolic blood pressure 116 mm[Hg] Rebecca Gonzalez [employer] Phone: 02-29-2020 12:25-0500 Body Temperature 97.7 [degF] Rj [employer] [place] 02-29-2020 12:25-0500 BP Diastolic 56 mm[Hg] Rj [employer] [facility] [employer] , [place] 02-29-2020 12:25-0500 BP Systolic 123 mm[Hg] Rj [employer] [facility] , [place] 02-29-2020 12:25-0500 Pulse (Heart Rate) 76 /min [facility] [place] 02-29-2020 12:25-0500 Pulse Oximetry 99 % Rj [employer] [facility] , [place] 02-29-2020 12:25-0500 Respiratory Rate 16 /min Rj [employer] [place] 02-29-2020 08:15-0500 BMI (Body Mass Index) 34.54 kg/m2 Rj [place] [employer] [facility] 02-29-2020 08:15-0500 Body weight 88.45 kg Rj [employer] [facility] , [place] 02-29-2020 08:15-0500 Height 160 cm [facility] [place] 11-04-2019 07:30-0400 Body Temperature 98.29 [degF] [facility] [place] 11-04-2019 07:30-0400 BP Diastolic 68 mm[Hg] Rj [facility] [place] 11-04-2019 07:30-0400 BP Systolic 115 mm[Hg] Rj [facility] [place] 11-04-2019 07:30-0400 Pulse (Heart Rate) 88 /min Rj [facility] 11-04-2019 07:30-0400 Respiratory Rate 16 /min Rj [facility] 11-03-2019 12:37-0400 Pulse Oximetry 99 % Rj [facility] [place] 11-02-2019 07:45-0400 BMI (Body Mass Index) 37.91 kg/m2 Rj [facility] 11-02-2019 07:45-0400 Body weight 97.07 kg Rj [facility] [place] 11-02-2019 07:45-0400 Height 160 cm Rj [facility] [place] 09-30-2018 10:02-0400 BMI (Body Mass Index) 31 kg/m2 [facility] 09-30-2018 10:02-0400 Body Temperature 98.49 [degF] [facility] 09-30-2018 10:02-0400 Body weight 79.38 [facility] [place] 09-30-2018 10:02-0400 BP Diastolic 71 mm[Hg] [facility] [place] 09-30-2018 10:02-0400 BP Systolic 139 mm[Hg] [facility] [facility] [place] 09-30-2018 10:02-0400 Height 160 cm [facility] [place] 09-30-2018 10:02-0400 Pulse (Heart Rate) 102 /min [facility] 09-30-2018 10:02-0400 Pulse Oximetry 98 % [facility] [place] 09-30-2018 10:02-0400 Respiratory Rate 14 /min [facility] [place] Encounters Encounter Date Encounter Type Care Provider Facility Start: 04-01-2023 End: 04-01-2023 ambulatory JSOE F SETH Not Available Start: 03-21-2023 End: 03-21-2023 ambulatory JOSE F R SETH [facility] Start: 03-18-2023 Chart abstracting Fish lorenz MD Work Phone: Maternal- Medicine at [facility] Start: 03-11-2023 End: 03-11-2023 ambulatory JOSE F SETH Not Available Start: 02-18-2023 End: 02-18-2023 ambulatory DONNELL FINCH Not Available Start: 01-29-2023 End: 01-30-2023 ambulatory [facility] Facility:[facility] Start: 01-29-2023 End: 01-29-2023 Patient encounter procedure Jose F R SETH [facility] Start: 01-29-2023 End: 01-30-2023 ambulatory Jose F R SETH Facility:[facility] Start: 01-29-2023 End: 01-29-2023 Patient encounter procedure Jose F R SETH [facility] Start: 01-11-2023 End: 01-12-2023 ambulatory Jose F R SETH Facility:[facility] Start: 01-11-2023 End: 01-11-2023 Patient encounter procedure Jose F R SETH [facility] Start: 01-10-2023 End: 01-10-2023 ambulatory JOSE F SETH Not Available Start: 12-28-2022 End: 12-28-2022 ambulatory DONNELL FINCH Not Available Start: 07-31-2022 End: 07-31-2022 [facility] Start: 04-11-2022 End: 04-12-2022 ambulatory LILIANA CARROLL [facility] Start: 04-11-2022 End: 04-11-2022 Subsequent hospital visit by physician Nikki Mcgovern PA-C Work Phone: [facility] Comment on above: Tonsillitis with exu date Start: 12-16-2021 End: 12-16-2021 Emergency department patient visit [facility] Start: 12-16-2021 End: 12-16-2021 Emergency department patient visit Sulema Teran DO Work Phone: [facility] ED Comment on above: Bitten by mouse, ini tial encounter (Primary Dx) Start: 11-29-2021 End: 11-29-2021 ambulatory [facility] Start: 10-28-2021 End: 10-28-2021 Emergency department patient visit [facility] Start: 10-28-2021 End: 10-28-2021 [facility] Work Phone: [facility] ED Comment on above: Cellulitis of trunk, unspecified site of trunk (Primary Dx) Start: 08-21-2021 End: 08-21-2021 Emergency department patient visit [facility] Start: 08-21-2021 End: 08-21-2021 Emergency department patient visit Penny Ritter MD Work Phone: [facility] ED Comment on above: Acute gastritis with out hemorrhage, unspecified gastritis type (Primary Dx) Start: 11-05-2020 End: 11-05-2020 Emergency department patient visit Rebecca S Gonzalez DO [facility] ED Comment on above: Dental abscess [...] hospital visit by physician Madhav Ultrasound 3 [facility] Comment on above: Amenorrhea Start: 04-14-2019 End: 04-16-2019 Subsequent hospital visit by physician Olvera Ultrasound Room 1 [facility] Ultrasound Comment on above: Amenorrhea Start: 09-30-2018 End: 09-30-2018 Emergency department patient visit Tip Antunez Work Phone: [facility] ED Comment on above: Pain around [...] abdomen & pelvis w/contrast material Spring Orozco ACCESS SERVICES REPRESENTATIVE - [employer] Other Phone: Start: 10-28-2021 Blood count complete auto&auto difrntl wbc Spring Orozco ACCESS SERVICES REPRESENTATIVE - [employer] Other Phone: Start: 10-28-2021 Urine test visual color cmprsn meths Spring Orozco ACCESS SERVICES REPRESENTATIVE - [employer] Other Phone: Start: 08-21-2021 Assay of lipase [...] Rj Aguilar Work Phone: c section x2 [employer] [facility] [employer] SETH extraction of wisdom teeth [employer] H/O: section Previous c esarean section Mloz 1 Plan of Treatment Date Care Activity Detail Author Start: 12-17-2031 DTaP/Tdap/Td vaccine (3 - Td or Tdap) DTaP/Tdap/Td vaccine (3 - Td or Tdap) [facility] Start: 07-12-2025 Screening for malign ant neoplasm of cervix [facility] Start: 05-27-2024 Screening for malign ant neoplasm of cervix Cervical cancer screen [place], [place] Start: 07-13-2023 Screening for malign ant neoplasm of cervix Pap smear [facility] [employer] Start: 03-21-2023 End: 03-21-2023 Patient encounter procedure 03/21/2023 8:00 AM EST Appointment [facility] [address] [facility] [address] [place] [address] [facility] Start: 03-07-2023 Depression Monitoring Depression Mon [employer] [facility] [employer] [facility] Start: 10-12-2022 Influenza vaccination Influenza Vacc ine [facility] Start: 08-29-2022 Depression Monitoring Depression Mon [employer] [facility] [employer] [facility] Start: 06-08-2022 End: 06-08-2022 Patient encounter procedure 06/08/2022 Office Visit Neurology Blas Mike MD [address] [address] [facility] Neurology Start: 02-02-2022 End: 02-02-2022 Patient encounter procedure 02/02/2022 Office Visit Neurology Blas Mike MD [address] [place] [address] [facility] Neurology Start: 01-10-2022 End: 01-10-2022 Patient encounter procedure 01/10/2022 Office Visit Family Medicine Nikki Mcgovern PA-C [address] [place] [address] [facility] Primary [facility] Specialty Care Start: 12-18-2021 End: 12-18-2021 Patient encounter procedure 12/18/2021 Office Visit Orthopedic Surgery Alena Chandra MD [address] [place] [address] [facility] Orthopedics and Sports Medicine Start: 10-12-2021 Influenza vaccination Flu vaccine (# 1) [facility] Start: 09-29-2021 End: 09-29-2021 Patient encounter procedure 09/29/2021 Office Visit Neurology Blas Mike MD [address] [place] [address] [facility] Neurology Start: 09-11-2021 Influenza vaccination Flu vaccine (# 1) [facility] Start: 01-20-2021 End: 01-20-2021 Patient encounter procedure 01/20/2021 Office Visit Neurology Blas Mike MD [address] [place] [address] [facility] Neurology Start: 12-01-2020 End: 12-01-2020 Patient encounter procedure 12/01/2020 Office Visit Obstetrics and Gynecology Rj Aguilar, [address] [place] [address] [phone] [facility] Obstetrics and Gynecology Start: 10-12-2020 Influenza vaccination Flu vaccine (# 1) [facility] Work Phone: Start: 09-29-2020 End: 09-29-2020 Patient encounter procedure 09/29/2020 Office Visit Family Medicine Nikki Mcgovern PA-C [address] [place] [address] [phone] [facility] Primary [facility] Specialty Care Start: 09-16-2020 End: 09-16-2020 Patient encounter procedure 09/16/2020 Office Visit Neurology Blas Mike MD [address] [place] [address] [phone] [facility] [place] Neurology Start: 02-16-2020 End: 02-16-2020 Procedure visit 02/16/2020 Procedure visit Obstetrics and Gynecology Rj Aguilar, [place] [place] [address] [phone] [facility] Obstetrics and Gynecology Start: 12-01-2019 DTaP/Tdap/Td vaccine (2 - Td or Tdap) DTaP/Tdap/Td vaccine (2 - Td or Tdap) [facility] Start: 12-01-2019 DTaP/Tdap/Td vaccine (2 - Td) DTaP/Tdap/Td vaccine (2 - Td) [place], [place] Start: 10-13-2019 Influenza vaccination [place] Start: 06-25-2019 End: 06-25-2019 Routine 06/25/2019 Routine Obstetrics and Gynecology Rj Aguilar DO [address] [place] [address] [phone] [facility] Obstetrics and Gynecology Start: 05-05-2019 End: 05-05-2019 Routine 05/05/2019 Routine Obstetrics and Gynecology Rj Aguilar DO [address] [place] [address] [phone] [facility] Obstetrics and Gynecology Start: 10-12-2018 Influenza vaccination Flu vaccine (# 1) [place] Start: 05-07-2016 Cervical cancer screen Cervical canc er screen [place], [place] Start: 10-20-2008 Screening for malign ant neoplasm of cervix Pap Smear [facility] Start: 10-20-2006 DTaP,Tdap and Td Vaccines (1 - Tdap) DTaP,Tdap and Td Vaccines (1 - Tdap) [facility] Start: 10-20-2005 Adult BMI Screening Adult BMI Screen ing [facility] Start: 10-20-2000 Varicella Vaccine (1 of 2 - 13+ 2-dose series) Varicella Vaccine (1 of 2 - 13+ 2-dose series) [place], [place] Start: 1999 COVID-19 Vaccine (1) COVID-19 Vaccin e (1) [facility] [employer] Phone: Start: 1999 [facility] Start: 1999 Depression Screening Depression Scre ening [facility] Start: 1999 Tobacco Screening Tobacco Screening [facility] Start: 10-20-1993 Pneumococcal 0-64 ye ars Vaccine (1 - PCV) Pneumococcal 0-64 years Vaccine (1 - PCV) [facility] Start: 10-20-1993 Pneumococcal 0-64 ye ars Vaccine (1 of 1 - PPSV23) Pneumococcal 0-64 years Vaccine (1 of 1 - PPSV23) [place], [place] Start: 10-20-1993 Pneumococcal 0-64 ye ars Vaccine (1 of 2 - PPSV23) Pneumococcal 0-64 years Vaccine (1 of 2 - PPSV23) [facility] [employer] Phone: Start: 10-20-1992 COVID-19 Vaccine (1) COVID-19 Vaccin e (1) [facility] Start: 10-20-1988 Varicella vaccine (1 of 2 - 2-dose childhood series) Varicella vaccine (1 of 2 - 2-dose childhood series) [facility] Start: 04-19-1988 COVID-19 Vaccine (#1) COVID-19 Vacci ne (#1) [facility] Start: 1987 Tobacco Counseling Tobacco Counselin [facility] End: 08-21-2021 CT ABDOMEN PELVIS W IV CONTRAST Additional Contrast? None CT ABDOMEN PELVIS W IV CONTRAST Additional Contrast? None Imaging Routine Once for 1 Occurrences starting 08/21/2021 until 08/21/2021 [facility]K [facility] Phone: Comment on above: Once for 1 Occurrenc es starting 08/21/2021 until 08/21/2021 CT ABDOMEN PELVIS W IV CONTRAST Additional Contrast? None CT ABDOMEN PELVIS W IV CONTRAST Additional Contrast? None Imaging STAT 08/21/2021 2:34 AM EDT [facility] Phone: End: 10-28-2021 Culture, Anaerobic and Aerobic Culture, Anaerobic and Aerobic Microbiology Routine One Time for 1 Occurrences starting 10/28/2021 until 10/28/2021 [facility]K [facility] Phone: Comment on above: One Time for 1 Occur rences starting 10/28/2021 until 10/28/2021 End: 04-11-2022 Culture, Throat [facility] Phone: Comment on above: 1 Occurrences starti ng 04/11/2022 until 04/11/2022 End: 08-12-2020 Holter Monitor 48 Hour Holter Monitor 48 Hour Cardiac Services Routine Heart palpitations 1 Occurrences starting 08/12/2020 until 08/12/2020 [employer] Phone: Comment on above: 1 Occurrences starti ng 08/12/2020 until 08/12/2020 Oxygen therapy [[facility] Data Set] [facility] Comment on above: Daily until disconti nued starting 11/02/2019 Daily until disconti nued starting 02/29/2020 Phase I & II - meter ed glucose Phase I & II - metered glucose Point of Care Testing Routine As Needed until discontinued starting 02/29/2020 [place] Comment on above: As Needed until disc ontinued starting 02/29/2020 End: 11-02-2019 RHOGAM INJECTION ONLY RHOGAM INJECTION ONLY Blood Bank Routine One Time for 1 Occurrences starting 11/02/2019 until 11/02/2019 [place], [place] Comment on above: One Time for 1 Occur rences starting 11/02/2019 until 11/02/2019 Spirometry panel Incentive jayleen metry Respiratory Care Routine Every 2hr while awake until discontinued starting 11/02/2019 [place], [place] Comment on above: Every 2hr while awak e until discontinued starting 11/02/2019 Surgical Pathology Surgical Path ology Lab Routine Release Upon Ordering for 1 Occurrences starting 02/29/2020 [place], [place] Comment on above: Release Upon Orderin g for 1 Occurrences starting 02/29/2020 End: 04-14-2019 US OB Transvaginal US OB Transvaginal Imaging Routine Amenorrhea 1 Occurrences starting 04/14/2019 until 04/14/2019 [place], [place] Comment on above: 1 Occurrences starti ng 04/14/2019 until 04/14/2019 US OB Transvaginal US OB Transva ginal Imaging Routine Amenorrhea 04/14/2019 2:44 PM EST [place], [place] Immunizations Immunization Date Immunization Notes Care Provider Nata storey 12-16-2021 tetanus toxoid, redu jameson diphtheria toxoid, and acellular pertussis vaccine, adsorbed Sulema Teran DO Work Phone: [facility] 11-02-2019 diphtheria, tetanus toxoids and acellular pertussis vaccine, unspecified formulation Rj Aguilar [place], [place] 01-22-2017 tetanus toxoid, redu jameson diphtheria toxoid, and acellular pertussis vaccine, adsorbed Jose F ANN [facility] Comment on above: Reason for Medicatio n: Other (see comment) 11-30-2009 tetanus toxoid, redu jameson diphtheria toxoid, and acellular pertussis vaccine, adsorbed Tip Antunez [facility] 10-04-2000 measles, mumps and rubella virus vaccine Rebecca Gonzalez DO [facility] Work Phone: Payers Date Payer Category Payer Medicaid [employer] [facility] O [id number] 2023-Present [phone] [address] [place] [address] [id number] 2021 Unknown , [id number] 2017 Unknown [id number] 2016 Unknown [facility] MEDICA[employer] xxxxxxxxxxx 2016-Present [phone] CLAIMS DEPARTMENT [address] [place] [address] xxxxxxxxxxx [id number] 2016 Unknown [id number]. [id number] 1987 Unknown [id number] [id number] 1987 Unknown [id number] [id number] 1987 Unknown [id number] [id number] 1987 Unknown [id number] [id number] 1987 Unknown [id number] [id number] 1987 Unknown [id number] [id number] 1987 Unknown [id number] [id number] 1987 Unknown [id number] [id number] 1987 Unknown [id number] [id number] 1987 Unknown [id number] [id number] 1987 Unknown [id number] [id number] 1987 Unknown [id number] [id number] 1987 Unknown [id number] [id number] 1987 Unknown [id number] [id number] 1987 Unknown [id number] Social History Date Type Detail Facility Start: 09-30-2018 End: 03-18-2023 Tobacco smoking status NHIS Current every day smoker [facility]AKUL [facility] History of tobacco use Cigarette Smoker [place] Start: 09-30-2018 End: 03-18-2023 Cigarettes smoked current (pack per day) - Reported [place], [place] Start: 09-30-2018 End: 03-18-2023 Alcohol intake No [facility] Start: 1987 Sex Assigned At Not on file [place] Start: 04-07-2019 End: 04-11-2022 Alcohol intake Current non-drinker of alcohol (finding) [place], [place] Start: 02-19-2019 [place], [place] Exposure to SARS-CoV -2 (event) Unable to assess [place], [place] Start: 11-03-2019 End: 08-29-2021 Tobacco use and exposure Never used [place], [place] Start: 08-11-2021 End: 04-11-2022 Exposure to SARS-CoV-2 (event) Not sure [place], [place] Start: 08-04-2020 End: 04-09-2022 History 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 [employer] Phone: Start: 08-04-2020 End: 04-09-2022 History 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 [employer] Phone: Start: 1987 Sex Assigned At Female B [facility] [employer] Start: 10-18-2021 End: 12-16-2021 Exposure to SARS-CoV-2 (event) Yes [facility] [employer] Start: 04-09-2022 History SDOH Transpo rt Non-Med 2 [employer] Phone: Start: 10-13-2017 Tobacco smoking status Heavy t obacco smoker (finding) [facility] Medical Equipment Procedure Code Equipment Code Equipment Origin al Text Equipment Identifier Dates fluorescein ophthalmic strip 1 mg [id number] Start: 09-30-2018 End: 09-30-2018 Clinical Notes 08-21-2021 to 01-11-2023 InstructionsAttachments Note Date & Type Note Facility 01-11-2023 Evaluation + Plan note Diagnostic Tests PendingHIV Screen 4th Generation wRfx 01/11/23Hepatitis B Surface Antigen 01/11/23RPR with Conf Rfx 01/11/23Rubella Antibody IgG 01/11/23HCV Antibody RFX to Quant PCR 01/11/23Urine Culture 01/11/23 [facility] 08-21-2021 Hospital Discharg e instructions Penny Ritter MD - 08/21/2021 Return to the Emergency Department immediately if you develop worsening symptoms, or you have any other concerns. Please follow up with your family doctor in 1-2 days. The following attachments cannot be sent through Care Everywhere.Gastritis ([place]ese)documented in this encounter [facility] Phone: Evaluation note Diagnosis Heart palpitations Palpitations documented in this encounter [employer] Phone: evaluation note* Diagnosis Dental abscess- Primary Periapical abscess without sinus documented in this encounter [employer] Phone: evaluation note* Diagnosis Acute gastritis without hemorrhage, unspecified gastritis type- Primary documented in this encounter [facility] [employer] Phone: evaluation note* Diagnosis Cellulitis of trunk, unspecified site of trunk- Primary documented in this encounter [facility] [employer] Phone: evalsshsbt note* Diagnosis Bitten by mouse, initial encounter- Primary documented in this encounter [facility] [employer] Phone: evaluation note* Diagnosis Tonsillitis with exudate Acute tonsillitis documented in this encounter [facility] [employer] Phone: Hospital course Narrative No data available for this section [facility] Attachments The following attachments cannot be sent through Care Everywhere. * Tooth: Abscessed ([place]) [facility] [employer] Phone: Hospital Discharge instructions* Attachments The following attachments cannot be sent through Care Everywhere. * Cellulitis ([place]) [facility] [employer] Phone: Hospital Discharge instructions* Attachments The following attachments cannot be sent through Care Everywhere. * Bites: Animal ([place]) [facility] [employer] Phone: Hospital Discharge instructions No data available for this section [facility]ructionsNot on filedocumented in this encounter [facility] No data available for this section [facility] Summary Purpose Family History No [...] FoundDocuments on File Type Date Recorded Patient Umbrella Tipper Machine Expl anation Advance Directives and Living Will Power of Molder Foam Rubber Documents on File Type Date Recorded Patient Umbrella Tipper Machine Expl anation Advance Directives and Living Will Power of Molder Foam Rubber Documents on File Type Date Recorded Patient Umbrella Tipper Machine Expl anation ACP-Advance Directive ACP-Power of Molder Foam Rubber Latest Code Status on File Code Status Date Activated Date Inactivated Comments Full Code 11/02/2019 12:26 PM Full Code 11/02/2019 7:35 AM 11/02/2019 12:26 PM Latest Code Status on File Code Status Date Activated Date Inactivated Comments Full Code 11/02/2019 12:26 PM 11/04/2019 3:22 PM Documents on File Type Date Recorded Patient Umbrella Tipper Machine Expl anation ACP-Advance Directive ACP-Power of Molder Foam Rubber Latest Code Status on File Code Status [...] * LEEP (LOOP ELECTROSURGICAL EXCISION PROCEDURE): POST-OP (SINHALA) * Coronavirus Disease (COVID-19): General Info ([place]ese) documented in this encounter Assessments Diagnosis Pain [...] Rj Aguilar, DO [address] [place] [address] Status Reason Specialty Diagnoses / Procedures Referre d By Contact Referred To Contact [facility]iology Diagnoses Amenorrhea Procedures US OB Transvaginal Rj Aguilar, DO [address] [place] [address] Status Reason Specialty Diagnoses / Procedures Referre d By Contact Referred To Contact Open Radiology Diagnoses Amenorrhea Procedures US OB TRANSVAGINAL Rj Aguilar, DO [address] [place] [address] Status Reason Specialty Diagnoses / Procedures Referred By Contact Referred To Contact Not Required - [facility] Diagnoses Amenorrhea Procedures US OB 14 Plus Weeks Single or First Gestation HC US OB GREATER THAN 14 WEEKS SINGLE FETUS Rj Aguilar, DO [address] [place] [address] Status Reason Specialty Diagnoses / Procedures Referre d By Contact Referred To Contact Closed Diagnoses Heart palpitations Procedures Holter Monitor 48 Hour Nikki Mcgovern PA-C [address] [place] [address] History of Present Illness * Rj Aguilar, [...] 50 mL IVPB (duplex), 2 g, Intravenous, Composite Technician to OR, Rj Diaz DO meperidine (DEMEROL) [...] Once PRN, Junior Fuentes MD 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 DATE CREATED AUTHOR AUTHOR'S ORGANIZ ATION 09/01/2021 [facility] DATE CREATED AUTHOR AUTHOR'S ORGANIZ ATION [facility]/04/2021 [facility] DATE CREATED AUTHOR AUTHOR'S ORGANIZ ATION 07/31/2022 [facility] DATE CREATED AUTHOR AUTHOR'S ORGANIZ ATION 01/31/2023 [facility] [place] [facility] ical [facility] DATE CREATED AUTHOR AUTHOR'S ORGANIZ ATION 03/25/2023 [facility] DATE CREATED AUTHOR AUTHOR'S ORGANIZ ATION 04/02/2023 [facility] dical Specialists EPIC Reason for Visit [...] Rj Aguilar DO [address] [place] [address] Status Reason Specialty Diagnoses / Procedures Referred By Contact Referred To Contact Not Required - [facility] Radiology Diagnoses Amenorrhea Procedures US OB 14 Plus Weeks Single or First Gestation HC US OB GREATER THAN 14 WEEKS SINGLE FETUS Rj Aguilar, DO [address] [place] [address] Reason Comments Other Scheduled C/S Status Reason Specialty Diagnoses / Procedures Referre d By Contact Referred To Contact Diagnoses Status post repeat low transverse section repeat Procedures MO DELIVERY ONLY SECTION Rj Aguilar, DO [address] [place] [address] [facility] Status Reason Specialty Diagnoses / Procedures Re ferred By Contact Referred To Contact Diagnoses HGSIL Pap smear of anus HGSIL Procedures MO COLPOSCOPY,ENTIRE VAGINA LOOP ELECTROSURGICAL EXCISION PROCEDURE COLPOSCOPY, ECC (PAT ON ADMIT) RAPID COVID Rj Aguilar, DO [address] [place] [address] [facility] Status Reason Specialty Diagnoses / Procedures Referre d By Contact Referred To Contact Closed Diagnoses Heart palpitations Procedures Holter Monitor 48 Hour Nikki Mcgovern PA-C [address] [place] [address] Reason Comments Dental Pain right upper gum [...] 28 capsule 0 10/28/2021 11/04/2021 nystatin (MYCOSTATIN) [id number] UNIT/GM powder Apply topically 2 times daily [...] Care Teams (unrecognized sec tion and content) Soil Sort Worker Relationship Specialty Start Date End Date Nikki Mcgovern PA-C PCP - General 03/29/15 Soil Sort Worker Relationship Specialty Start Date End Date Nikki Mcgovern PA-C PCP General 03/29/15 Soil Sort Worker Relationship Specialty Start Date End Date Nikki Mcgovern PA-C [facility] 03/29/15 Soil Sort Worker Relationship Specialty Start Date End Date Nikki Mcgovern PA-C [facility] 03/29/15 FOR RECORDS PERTAINING TO PATIENTS [...] BE BASED ON THE PRIMARY CLINICAL RECORDS. [facility] [employer], [facility]. provides no warranty or guarantee of the accuracy or completeness of information in this document.
[2023-04-17 14:54] VITALS: BP 124/62; PULSE 83
== END 2023-04-17 15:40 | disposition home or self-care (01) ==
LOC: US 07:15 → FBC 14:17
PROVIDERS: Visit Provider Obstetrics & Gynecology
DX: O26.849 Uterine size-date discrepancy, unspecified trimester (principal); O09.529 Supervision of elderly multigravida, unspecified trimester; Z3A.37 37 weeks gestation of pregnancy
CPT/HCPCS: 76816; 76818

== ENCOUNTER 2023-04-20 07:33 | Outpatient (OUT) | payer OTHER, SELFPAY ==
--- OUTSIDE RECORDS SUMMARY | 2023-04-20 07:37 | XMS_ITS | CCD ---
Author Name Unknown Address [address] [place] [address] Organization [facility] Care Team Providers Care Magnetic Prospector Name Role Phone Nikki Mcgovern Primary Care [...] Unavailable SETH, Jose F R Admitting Unavailable MRATHA-NIKKI DEE Primary Care Unavailabl e SETH, Jose [...] Drug Allergy 2 Nausea And Vomiting, Headache [address] Phone: (4 sources) traMADol; Translations: [TRAMADOL] Drug Allergy [address] Phone: (1 source) No Known Medication Allergies; Translations: [No Known Medication Allergies] Propensity to adverse reactions (disorder) [facility] Repository Medications Current Medications Medication [...] Pain - Moderate, 30 tab(s), Refill(s) 0, [facility] Start Date: 01/22/17 Status: Ordered [...] BID, # 60 cap(s), Refills(s) 0, Pharmacy: [facility] Start Date: 01/22/17 Status: Ordered Ethinyl Estradiol [...] Refill(s) 5, Start 3 weeks after delivery, [facility] Start Date: 01/22/17 [...] Mild, # 40 tab(s), Refills(s) 0, Pharmacy: [facility] Start Date: 01/22/17 [...] sources) Polyene Antifungal Start: 10-28-2021 nystatin (MYCOSTATIN) 454648 UNIT/GM powder Apply topically 2 times daily [...] Give after delivery of placenta. Prenat w/o M-UeOcf-YMN-FA-DHA (PRENAISSANCE PLUS) 28-1-250 MG CAPS (4 sources) Start: 06-03-2019 take 1 tablet by mouth once daily Prenat w/o S-IdJkw-WKQ-FA-DHA (PRENAISSANCE PLUS) 28-1-250 MG CAPS Take 1 tablet by mouth daily 30 capsule 06/03/2019 Suspended Start: 06-03-2019 take 1 tablet by mario th once daily Prenat w/o V-MlGze-RZI-FA-DHA (PRENAISSANCE PLUS) 28-1-250 MG CAPS Take 1 [...] tablet 3 04/09/2017 09/30/2018 Discontinued (LIST CLEANUP) Of-[id number]-Qoeqmh (PRENATE AM PO) (1 source) End: 09-30-2018 Ce-[id number]-Epgbte (PRENATE AM PO) Take by mouth 0 09/30/2018 Discontinued (LIST CLEANUP) Multivitamins with Folic Acid 1 mg oral tablet (3 sources) Start: 07-26-2016 Multivitamins with Folic Acid 1 mg oral tablet 1 tab(s), Oral, Daily, 100 tab(s), Refill(s) 0, [facility] Start Date: 07/26/16 [...] Extremities Normal Diaphragm Normal ACI Normal Normal [facility] CHEMISTRYOrdered By: SYSTEM SYSTEM on 01-29-2023 Glucose [Mass/Vol] 157 mg/dL High 55 - 140 mg/dL Remisol Chem Consent for Treatmenton 01-11 Consent for Treatment [id number] .00TIFF Normal [facility] Consent for Treatment [id number]#1 .00TIFF Normal [facility] Gest Scr Glu 1 Hron 01-30-20 23 Glucose [Mass/Vol] 157 mg/dL High 55-140 [facility] Comment on above: Performed By: #### 2 [id number], [id number], [id number], [id number], 991194182, 772059077, 8155519, 3058427, 6179058 #### [facility] Laboratory [address] [place] [address] Glucose 1h post 50g loadon 04-01-2022 Glucose, 1 hr PP 50GM dose 157 [employer] [facility] Physician Orderon 01-29-2023 Physician Order [id number]# 1.00TIFF Normal [facility] Physician Orderon 01-28-2023 Physician Order [id number]#1 .00TIFF Normal [facility] C Urineon 01-13-2023 Bacteria identified [...] Locations R1: This test was performed at: [facility], [address] [place] [address], [address] , , [facility] Comment on above: Performed By: #### 2 [id number], [id number], [id number], [id number], 918462346, 821778880, 1368869, 3570388, 8513541 #### [facility] [address] [place] [address] .Interpretation:on HCV Ab IA Ql Comment Invalid Interpretation Code [facility] Comment on above: Result Comment: Not infected with HCV unless early or acute infection is suspected (which may be delayed in an immunocompromised individual), or other evidence exists to indicate HCV infection. Performed at: [facility] [id number] [place], [place] [id number] PhD Mariama Zaman Performed By: #### 2 [id number], 65229496, 094818512, 8056868260, 348360937, 906719563, 9876604, 1390813, 8382293 #### [facility] [address] [place] [address] HCV Antibody RFX to Quant PC Johnny 01-12-2023 HCV IgG IA Ql Non-Reactive Invalid Interpretation Code Non Reactive [facility] Comment on above: Result Comment: Perf ormed at: [address] [id number] PhD Mariama Zaman Performed By: #### 2 [id number], 96834449, 891477615, 1852106649, 477524863, 624777422, 2011361, 8382666, 9434157 #### [facility] [address] [place] [address] HIV Screen 4th Generation wR fxon 01-12-2023 HIV 1+2 Ab+HIV1 p24 Ag IA Ql Non-Reactive Invalid Interpretation Code Non Reactive [facility] Comment on above: Result Comment: HIV Negative HIV-1/HIV-2 antibodies and HIV-1 p24 antigen were NOT detected. There is no laboratory evidence of HIV infection. Performed at: [address] [id number] PhD Mariama Zaman Performed By: #### 2 [id number], 63658459, 993114717, 9953501538, 667697905, 336943864, 7653424, 9119265, 7753190 #### [facility] [address] [place] [address] Hep Bs Agon 01-12-2023 HBV surface Ag IA Ql Negative Invalid Interpretation Code Negative [facility] Comment on above: Result Comment: Perf ormed at: [address] [id number] PhD Mariama Zaman Performed By: #### 2 [id number], 77754831, 513018279, 7318458162, 874622641, 038574603, 5164314, 0814051, 7408784 #### [facility] [address] [place] [address] RPR with Conf Rfxon 01-13-20 23 Reagin Ab RPR Ql (S) Non-Reactive Invalid Interpretation Code Non Reactive [facility] Comment on above: Result Comment: Perf ormed at: [address] [id number] PhD Mariama Zaman Performed By: #### 2 [id number], 20726880, 744805353, 4823591722, 833963995, 246756832, 9357124, 1685352, 9264854 #### [facility] [address] [place] [address] Rubella IgGon 01-12-2023 Rubella virus IgG Qn (S) 5.68 [IU]/mL Invalid Interpretation Code Immune >0.99 [facility] Comment on above: Result Comment: Non- immune <0.90 Equivocal 0.90 - 0.99 Immune >0.99 Performed at: [address] [id number] PhD Mariama Zaman Performed By: #### 2 [id number], 89796730, 936677041, 6569025791, 706058652, 425402847, 6656379, 5289639, 7619232 #### [facility] [address] [place] [address] ABO/Rhon 01-11-2023 ABO/Rh Positive Invalid Interpretation Code [facility] Comment on above: Performed By: #### 2 [id number], 78340865, 316793897, 9797249304, 915012377, 538756449, 6393284, 9554211, 8128560 #### [facility] [address] [place] [address] ABSCon 01-11-2023 ABSC Gel Interp Negative Normal [facility] Comment on above: Performed By: #### 2 [id number], 74177050, 570860030, 8459543766, 846250390, 614192833, 2359866, 4615893, 2983802 #### [facility] [address] [place] [address] BLOOD BANKOrdered By: Dylan Lemons on 01-11-2023 ABO/Rh Interp Positive Invalid Interpretation Code FT BB Subsection ABSC Gel Interp Negative (01/11/23 10:00 AM) Normal [facility] BB Subsection CBC w/IndicesOrdered By: López Jorgensen on 01-11-2023 Erythrocyte distribution width (RBC) [Ratio] 13.4 % Normal 10.9-14.2 [facility] Comment on above: Performed By: #### 2 053011449, 41475867, 571236119, 8421437564, 691308085, 554066101, 1049987, 3183936, 6777243 #### [facility] [address] [place] [address] Hematocrit (Bld) [Volume fraction] 34.4 % [facility] Comment on above: Performed By: #### 2 523562406, 60143884, 332427005, 4280444687, 825700716, 761488543, 6523806, 2251425, 8302593 #### [facility] [address] [place] [address] Hemoglobin (Bld) [Mass/Vol] 11.7 g/dL [facility] Comment on above: Performed By: #### 2 586967752, 38439661, 763709516, 4129651945, 986240352, 249014349, 6731109, 3103315, 3239133 #### [facility] [address] [place] [address] MCH (RBC) [Entitic mass] 31.7 pg Normal 27.0-34.0 [facility] Comment on above: Performed By: #### 2 028745191, 58875533, 756311750, 2312516758, 237638759, 463573105, 6094326, 7309745, 8959794 #### [facility] [address] [place] [address] MCHC (RBC) [Mass/Vol] 33.9 g/dL Normal 31.4-36.0 [facility] Comment on above: Performed By: #### 2 005927226, 77117442, 426226285, 2206052895, 651581665, 619574971, 4330831, 0193540, 3754653 #### [facility] [address] [place] [address] MCV (RBC) [Entitic vol] 93.3 fL Normal 80.0-100.0 [facility] Comment on above: Performed By: #### 2 954741007, 96811798, 161758941, 3404403949, 574516769, 185100513, 9178676, 6706202, 5807727 #### [facility] [address] [place] [address] Platelet mean volume (Bld) [Entitic vol] 8.0 fL Normal 6.4-10.8 [facility] Comment on above: Performed By: #### 2 555831435, 29699048, 952918518, 1549406525, 161134989, 075295261, 6287074, 0050481, 0362999 #### [facility] [address] [place] [address] Platelets (Bld) [#/Vol] 171.0 E9/L Normal 150.0-500.0 [facility] Comment on above: Performed By: #### 2 679131516, 00536161, 041012879, 2085233019, 107665641, 659549165, 5263630, 8601942, 2726463 #### [facility] [address] [place] [address] RBC (Bld) [#/Vol] 3.7 E12/L Low 4.3-5.9 [facility] Comment on above: Performed By: #### 2 025683633, 98977233, 453071444, 1882354664, 661007389, 683761124, 9094037, 4314651, 7442011 #### [facility] [address] [place] [address] WBC corrected for nucl RBC Auto (Bld) [#/Vol] 11.7 E9/L High 4.0-11.0 FT [facility] Comment on above: Performed By: #### 2 185032912, 36545794, 829586381, 4338725760, 992641342, 562936492, 2379641, 4913892, 2672957 #### [facility] [address] [place] [address] CBC without diffon Platelets (Bld) [#/Vol] 171 10*3/uL [facility] Consent for Treatmenton Consent for Treatment [id number] .00TIFF Normal [facility] HIV 1&2 AB/AG Screen (P24 AG )on 01-11-2023 HIV 1&2 AB/AG Non-Reactive [facility] Hepatitis B surface antigeno n 01-11-2023 Hepatitis B Surface Antigen Negative [facility] Hepatitis C(HCV) Ab w/ Refle x to PCRon 01-11-2023 HCV Ab Ql (S) Non-Reactive [facility] [id number] By: Liliana Dumont on 01-11-2023 HbA1c (Bld) [Mass fraction] 4.9 % Normal <=5.9 [facility] [employer] Comment on above: Performed By: #### 2 [id number], 14485678, 037088846, 9857517082, 697915616, 789381926, 1444375, 9404363, 7830606 #### [facility] [address] [place] [address] No Panel Informationon 01-11 [facility] Physician Orderon 01-11-2023 Physician Order [id number] .00TIFF Normal [facility] Rubella IGG immune statuson 01-11-2023 Rubella immune IgG 5.68 [facility] Syphilis Total(Unknown Syphi lis Status)on 01-11-2023 Syphilis Non-Reactive [facility] TSHon 01-11-2023 Thyroid Stimulating (3Rd Generation) Hormone/ Tsh 1.30 [facility] TSHOrdered By: SYSTEM SYSTEM on 01-11-2023 TSH Qn 1.30 m[IU]/L Normal 0.34-5.60 [facility] Remisol Comment on above: Performed By: #### 2 [id number], 47130843, 271947828, 1386503496, 832507058, 737849185, 3131857, 8029660, 9044352 #### [facility] [address] [place] [address] Type and screenon 01-11-2023 Abo/Rh(D) Positive [employer] Basic Metabolic Panelon 07-13 Calcium [Mass/Vol] 9.1 mg/dL Normal 8.5-9.9 [facility] Comment on above: Performed By: #### C BCWD #### [facility] [address] [place] [address] Chloride [Moles/Vol] 105 mmol/L Normal 95-107 [facility] Comment on above: Performed By: #### C BCWD #### [facility] [address] [place] [address] CO2 [Moles/Vol] 22 mmol/L Normal 20-31 [facility] Comment on above: Performed By: #### C BCWD #### [facility] [address] [place] [address] Creatinine [Mass/Vol] 0.59 mg/dL Normal 0.50-0.90 [facility] Comment on above: Performed By: #### C BCWD #### [facility] [address] [place] [address] GFR >60.0 Normal >60 [facility] Comment on above: Result Comment: Pedi [...] #### [facility] [address] [place] [address] Glucose [Mass/Vol] 110 mg/dL Critically high 70-99 [facility] Comment on above: Performed By: #### C BCWD #### [facility] [address] [place] [address] Potassium [Moles/Vol] 4.0 mmol/L Normal 3.4-4.9 [facility] Comment on above: Performed By: #### C BCWD #### [facility] [address] [place] [address] Sodium [Moles/Vol] 139 mmol/L Normal 135-144 [facility] Comment on above: Performed By: #### C BCWD #### [facility] [address] [place] [address] Urea nitrogen [Mass/Vol] 12 mg/dL Normal 6-20 [facility] Comment on above: Performed By: #### C BCWD #### [facility] [address] [place] [address] Anion gap [Moles/Vol] 12 mmol/L Normal 9-15 [facility] Comment on above: Performed By: #### C BCWD #### [facility] [address] [place] [address] CBC With Platelet and Differ entialon 07-31-2022 Abs Imm Granulocytes 0.0 K/uL Normal [facility] Comment on above: Performed By: #### C BCWD #### [facility] [address] [place] [address] Basophils (Bld) [#/Vol] 0.0 10*3/uL Normal 0.0-0.1 [facility] Comment on above: Performed By: #### C BCWD #### [facility] [address] [place] [address] Basophils/100 WBC (Bld) 0.4 % Normal 0.1-1.2 [facility] Comment on above: Performed By: #### C BCWD #### [facility] [address] [place] [address] Eosinophils (Bld) [#/Vol] 0.2 10*3/uL Normal 0.0-0.4 [facility] Comment on above: Performed By: #### C BCWD #### [facility] [address] [place] [address] Eosinophils/100 WBC (Bld) 2.6 % Normal 0.7-5.8 [facility] Comment on above: Performed By: #### C BCWD #### [facility] [address] [place] [address] Erythrocyte distribution width (RBC) [Ratio] 12.6 % Normal 11.7-14.4 [facility] Comment on above: Performed By: #### C BCWD #### [facility] [address] [place] [address] Hematocrit (Bld) [Volume fraction] 39.6 % Normal 37.0-47.0 [facility] Comment on above: Performed By: #### C BCWD #### [facility] [address] [place] [address] Hemoglobin (Bld) [Mass/Vol] 13.5 g/dL Normal 11.2-15.7 [facility] Comment on above: Performed By: #### C BCWD #### [facility] [address] [place] [address] Imm Granulocytes 0.3 % Normal [facility] Comment on above: Performed By: #### C BCWD #### [facility] [address] [place] [address] Lymphocytes (Bld) [#/Vol] 1.8 10*3/uL Normal 1.2-3.7 [facility] Comment on above: Performed By: #### C BCWD #### [facility] [address] [place] [address] Lymphocytes/100 WBC (Bld) 25.0 % Normal [facility] Comment on above: Performed By: #### C BCWD #### [facility] [address] [place] [address] MCH (RBC) [Entitic mass] 31.9 pg Normal 25.6-32.2 [facility] Comment on above: Performed By: #### C BCWD #### [facility] [address] [place] [address] MCHC 34.1 % Normal 32.2-35.5 [facility] Comment on above: Performed By: #### C BCWD #### [facility] [address] [place] [address] MCV (RBC) [Entitic vol] 93.6 fL Normal 79.4-94.8 [facility] Comment on above: Performed By: #### C BCWD #### [facility] [address] [place] [address] Monocytes (Bld) [#/Vol] 0.4 10*3/uL Normal 0.2-0.9 [facility] Comment on above: Performed By: #### C BCWD #### [facility] [address] [place] [address] Monocytes/100 WBC (Bld) 5.7 % Normal 4.7-12.5 [facility] Comment on above: Performed By: #### C BCWD #### [facility] [address] [place] [address] Neutrophils (Bld) [#/Vol] 4.9 10*3/uL Normal 1.6-6.1 [facility] Comment on above: Performed By: #### C BCWD #### [facility] [address] [place] [address] Neutrophils/100 WBC (Bld) 66.0 % Normal 34.0-71.1 [facility] Comment on above: Performed By: #### C BCWD #### [facility] [address] [place] [address] Platelets (Bld) [#/Vol] 193 10*3/uL Normal 182-369 [facility] Comment on above: Performed By: #### C BCWD #### [facility] [address] [place] [address] RBC (Bld) [#/Vol] 4.23 10*6/uL Normal 3.93-5.22 [facility] Comment on above: Performed By: #### C BCWD #### [facility] [address] [place] [address] WBC (Bld) [#/Vol] 7.4 10*3/uL Normal 4.0-10.0 [facility] Comment on above: Performed By: #### C BCWD #### [facility] [address] [place] [address] UR HCG Qualitativeon 023 Beta HCG ( test) Ql (U) Negative Normal Detects HC [facility] Comment on above: Performed By: #### C BCWD #### [facility] [address] [place] [address] Urinalysis, reflex to cultur minoo 07-31-2022 Urine Reflexed to Culture Not Indicated Normal [facility] Comment on above: Performed By: #### U AR #### [facility] [address] [place] [address] Bilirubin Ql (U) Negative Normal Negative [facility] Comment on above: Performed By: #### U AR #### [facility] [address] [place] [address] Clarity (U) Clear Normal Clear [facility] Comment on above: Performed By: #### U AR #### [facility] [address] [place] [address] Color (U) Yellow Normal Straw/Dooly [facility] Comment on above: Performed By: #### U AR #### [facility] [address] [place] [address] Glucose Ql (U) Negative Normal Negative [facility] Comment on above: Performed By: #### U AR #### [facility] [address] [place] [address] Hemoglobin Ql (U) Large Normal Negative [facility] Comment on above: Performed By: #### U AR #### [facility] [address] [place] [address] Ketones Ql (U) Negative Normal Negative [facility] Comment on above: Performed By: #### U AR #### [facility] [address] [place] [address] Leukocyte esterase Test strip Ql (U) Negative Normal Negative [facility] Comment on above: Performed By: #### U AR #### [facility] [address] [place] [address] Nitrite Ql (U) Negative Normal Negative [facility] Comment on above: Performed By: #### U AR #### [facility] [address] [place] [address] pH (U) 5.5 [pH] Normal 5.0-9.0 [facility] Comment on above: Performed By: #### U AR #### [facility] [address] [place] [address] Protein Ql (U) Negative Normal Negative [facility] Comment on above: Performed By: #### U AR #### [facility] [address] [place] [address] Specific gravity (U) [Rel density] 1.015 Normal 1.005-1.03 [facility] Comment on above: Performed By: #### U AR #### [facility] [address] [place] [address] Urobilinogen Qn (U) 0.2 {Ginger'U}/dL Normal < 2.0 [facility] Comment on above: Performed By: #### U AR #### [facility] [address] [place] [address] Urine Microscopicon 08-01-19 23 Epithelial cells LM Ql (Urine sed) 3-5 Normal [facility] Comment on above: Performed By: #### U KAREEM #### [facility] [address] [place] [address] Urine Bacteria FEW Abnormal Negative [facility] Comment on above: Performed By: #### U KAREEM #### [facility] [address] [place] [address] Urine RBC 5-10 Abnormal 0-2 [facility] Comment on above: Performed By: #### U KAREEM #### [facility] [address] [place] [address] Urine WBC 0-2 Normal 0-5 [facility] Comment on above: Performed By: #### U KAREEM #### [facility] [address] [place] [address] Culture, Throaton 04-11-2022 Culture, Throat ORDER#: [id number] ORDERED BY: LILIANA CARROLL SOURCE: Throat Throat COLLECTED: 04/11/22 17:53 ANTIBIOTICS AT BLAYNE.: RECEIVED : 04/11/22 21:00 Culture, Throat FINAL 04/14/22 10:27 Cult,Throat: Oral to, negative for Group A Strep and other beta Cult,Throat: hemolytic streptococci Performed at [address] [address] ([phone] Normal [facility] Comment on above: Performed By: #### C BCWD #### [facility] [address] [place] [address] XR SHOULDER LEFT (MIN 2 VIEW S)on [...] [facility] Bacterial susceptibility hager el by Christin 10-28-2021 Bacterial susceptibility panel KAREEM ([facility]) ORDER#: [id number] ORDERED BY: SPRING OROZCO SOURCE: Incision COLLECTED: 10/28/21 16:45 ANTIBIOTICS AT BLAYNE.: RECEIVED : 10/28/21 22:09 Culture, Wound Aerobic, Anaerobic FINAL 11/03/21 07:50 Direct Exam: NO NEUTROPHILS SEEN Direct Exam: NO BACTERIA SEEN Cult,Aerobe/Anaerobe: Mixed skin to Cult,Aerobe/Anaerobe: No anaerobic organisms isolated at 5 days. Performed at [address] [address] Acinetobacter species LIGHT GROWTH Acinetobacter baumannii LIGHT GROWTH Acineto sp. A. baumannii ANTIBIOTICS KAREEM Interp KAREEM Interp Ampicillin/Sulbactam <=2 S >=32 R Ceftriaxone 16 I 16 I Ciprofloxacin <=0.25 S <=0.25 S Gentamicin <=1 S <=1 S Tobramycin <=1 S <=1 S S=SUSCEPTIBLE I=INTERMEDIATE R=RESISTANT Normal [facility] Comment on above: Performed By: #### 5 0545-3 #### [facility] [address] [place] [address] Bacterial susceptibility panel KAREEM ([facility]) ORDER#: [id number] ORDERED BY: SPRING OROZCO SOURCE: Incision COLLECTED: 10/28/21 16:45 ANTIBIOTICS AT [facility]LAYNE.: RECEIVED : 10/28/21 22:09 Culture, Wound Aerobic, Anaerobic PRELIM 11/03/21 07:15 Direct Exam: NO NEUTROPHILS SEEN Direct Exam: NO BACTERIA SEEN Cult,Aerobe/Anaerobe: Mixed skin to Cult,Aerobe/Anaerobe: No anaerobic organisms isolated at 5 days. Performed at [facility] [address] [facility], [place] [id number] ([phone] Acinetobacter species LIGHT GROWTH Acineto sp. ANTIBIOTICS KAREEM Interp Ampicillin/Sulbactam <=2 S Ceftriaxone 16 I Ciprofloxacin <=0.25 S Gentamicin <=1 S Tobramycin <=1 S S=SUSCEPTIBLE I=INTERMEDIATE R=RESISTANT Normal [facility] Comment on above: Performed By: #### C BCWD #### [facility] [address] [place] [id number] CBC With Platelet and Differ entialon 10-28-2021 Abs Imm Granulocytes 0.0 K/uL Normal [facility] Comment on above: Performed By: #### C BCWD #### [facility] [address] [place] [address] Basophils (Bld) [#/Vol] 0.0 10*3/uL Normal 0.0-0.1 [facility] Comment on above: Performed By: #### C BCWD #### [facility] [address] [place] [address] Basophils/100 WBC (Bld) 0.1 % Normal 0.1-1.2 [facility] Comment on above: Performed By: #### C BCWD #### [facility] [address] [place] [address] Eosinophils (Bld) [#/Vol] 0.3 10*3/uL Normal 0.0-0.4 [facility] Comment on above: Performed By: #### C BCWD #### [facility] [address] [place] [address] Eosinophils/100 WBC (Bld) 3.1 % Normal 0.7-5.8 [facility] Comment on above: Performed By: #### C BCWD #### [facility] [address] [place] [address] Erythrocyte distribution width (RBC) [Ratio] 12.8 % Normal 11.7-14.4 [facility] Comment on above: Performed By: #### C BCWD #### [facility] [address] [place] [address] Hematocrit (Bld) [Volume fraction] 40.9 % Normal 37.0-47.0 [facility] Comment on above: Performed By: #### C BCWD #### [facility] [address] [place] [address] Hemoglobin (Bld) [Mass/Vol] 13.6 g/dL Normal 11.2-15.7 [facility] Comment on above: Performed By: #### C BCWD #### [facility] [address] [place] [address] Imm Granulocytes 0.2 % Normal [facility] Comment on above: Performed By: #### C BCWD #### [facility] [address] [place] [address] Lymphocytes (Bld) [#/Vol] 1.8 10*3/uL Normal 1.2-3.7 [facility] Comment on above: Performed By: #### C BCWD #### [facility] [address] [place] [address] Lymphocytes/100 WBC (Bld) 16.5 % Normal [facility] Comment on above: Performed By: #### C BCWD #### [facility] [address] [place] [address] MCH (RBC) [Entitic mass] 31.1 pg Normal 25.6-32.2 [facility] Comment on above: Performed By: #### C BCWD #### [facility] [address] [place] [address] MCHC 33.3 % Normal 32.2-35.5 [facility] Comment on above: Performed By: #### C BCWD #### [facility] [address] [place] [address] MCV (RBC) [Entitic vol] 93.4 fL Normal 79.4-94.8 [facility] Comment on above: Performed By: #### C BCWD #### [facility] [address] [place] [address] Monocytes (Bld) [#/Vol] 0.6 10*3/uL Normal 0.2-0.9 [facility] Comment on above: Performed By: #### C BCWD #### [facility] [address] [place] [address] Monocytes/100 WBC (Bld) 5.2 % Normal 4.7-12.5 [facility] Comment on above: Performed By: #### C BCWD #### [facility] [address] [place] [address] Neutrophils (Bld) [#/Vol] 7.9 10*3/uL Critically high 1.6-6.1 [facility] Comment on above: Performed By: #### C BCWD #### [facility] [address] [place] [address] Neutrophils/100 WBC (Bld) 74.9 % Critically high 34.0-71.1 [facility] Comment on above: Performed By: #### C BCWD #### [facility] [address] [place] [address] Platelets (Bld) [#/Vol] 192 10*3/uL Normal 182-369 [facility] Comment on above: Performed By: #### C BCWD #### [facility] [address] [place] [address] RBC (Bld) [#/Vol] 4.38 10*6/uL Normal 3.93-5.22 [facility] Comment on above: Performed By: #### C BCWD #### [facility] [address] [place] [address] WBC (Bld) [#/Vol] 10.6 10*3/uL Critically high 4.0-10.0 [facility] Comment on above: Performed By: #### C BCWD #### [facility] [address] [place] [address] CBC with Auto Differentialon 10-28-2021 Basophils (Bld) [#/Vol] 0.0 10*3/uL 0 - 0.1 K/uL [facility] Basophils/100 WBC (Bld) 0.1 % 0.1 - 1.2 % [facility] Eosinophils (Bld) [#/Vol] 0.3 10*3/uL 0 - 0.4 K/uL [facility] Eosinophils/100 WBC (Bld) 3.1 % 0.7 - 5.8 % [facility] Hematocrit (Bld) [Volume fraction] 40.9 % 37 - 47 % [facility] Hemoglobin (Bld) [Mass/Vol] 13.6 g/dL 11.2 - 15.7 g/dL [facility] Immature granulocytes (Bld) [#/Vol] 0.0 10*3/uL [facility] Immature granulocytes/100 WBC (Bld) 0.2 % [facility] Interpretation and review of laboratory results Abnormal [facility] Lymphocytes (Bld) [#/Vol] 1.8 10*3/uL 1.2 - 3.7 K/uL [facility] Lymphocytes/100 WBC (Bld) 16.5 % [facility] MCH (RBC) [Entitic mass] 31.1 pg 25.6 - 32.2 pg [facility] MCHC (RBC) [Mass/Vol] 33.3 % 32.2 - 35.5 % [facility] MCV (RBC) [Entitic vol] 93.4 fL 79.4 - 94.8 fL [facility] Monocytes (Bld) [#/Vol] 0.6 10*3/uL 0.2 - 0.9 K/uL [facility] Monocytes/100 WBC (Bld) 5.2 % 4.7 - 12.5 % [facility] Neutrophils Absolute 7.9 K/uL High 1.6 - 6 .1 K/uL [facility] Neutrophils/100 WBC (Bld) 74.9 % High 34 - 71.1 % [facility] Platelet distribution width (Bld) [Ratio] 12.8 % 11.7 - 14.4 % [facility] Platelets (Bld) [#/Vol] 192 10*3/uL 182 - 369 K/uL [facility] RBC (Bld) [#/Vol] 4.38 10*6/uL [facility] WBC (Bld) [#/Vol] 10.6 10*3/uL High 4 - 10 K/uL [facility] CT ABDOMEN PELVIS W IV [...] Melodie Ocampo MD 10/28/21 Final result Normal [facility] CT ABDOMEN PELVIS W IV CONTR AST Additional Contrast? Noneon 10-28-2021 No acute abdominopelvic abnormality. [facility] RADIOLOGY EXAMINATION: CT OF THE ABDOMEN [...] stranding or fluid at the surgical site. [facility] RADIOLOGY Melodie Ocampo MD - 10/28/2021 [...] surgical site. IMPRESSION: No acute abdominopelvic abnormality. [facility] Phone: Radiology Study observation (narrative) [facility] [employer] Phone: CT ABDOMEN PELVIS W IV CONTR AST Additional Contrast? NoneOrdered By: Melodie Ocampo on 10-28-2021 [facility] [employer] Phone: Comprehensive Metabolic Pane l reflex Mgon 10-28-2021 Albumin [Mass/Vol] 4.4 g/dL Normal 3.5-4.6 [facility] Comment on above: Performed By: #### C MPX #### [facility] [address] [place] [address] ALP [Catalytic activity/Vol] 118 U/L Normal 40-130 [facility] Comment on above: Performed By: #### C MPX #### [facility] [address] [place] [address] ALT [Catalytic activity/Vol] 6 U/L Normal 0-33 [facility] Comment on above: Performed By: #### C MPX #### [facility] [address] [place] [address] Anion gap [Moles/Vol] 11 mmol/L Normal 9-15 [facility] Comment on above: Performed By: #### C MPX #### [facility] [address] [place] [address] AST [Catalytic activity/Vol] 8 U/L Normal 0-35 [facility] Comment on above: Performed By: #### C MPX #### [facility] [address] [place] [address] Bilirubin [Mass/Vol] 0.4 mg/dL Normal 0.2-0.7 [facility] Comment on above: Performed By: #### C MPX #### [facility] [address] [place] [address] Calcium [Mass/Vol] 9.7 mg/dL Normal 8.5-9.9 [facility] Comment on above: Performed By: #### C MPX #### [facility] [address] [place] [address] Chloride [Moles/Vol] 104 mmol/L Normal 95-107 [facility] Comment on above: Performed By: #### C MPX #### [facility] [address] [place] [address] CO2 [Moles/Vol] 23 mmol/L Normal 20-31 [facility] Comment on above: Performed By: #### C MPX #### [facility] [address] [place] [address] Creatinine [Mass/Vol] 0.60 mg/dL Normal 0.50-0.90 [facility] Comment on above: Performed By: #### C MPX #### [facility] [address] [place] [address] GFR >60.0 Normal >60 [facility] Comment on above: Result Comment: >60 mL/min/1.73m2 EGFR, calc. for ages 18 and older using the MDRD formula (not corrected for weight), is valid for stable renal function. Performed By: #### C MPX #### [facility] [address] [place] [address] GFR/1.73 sq M.predicted among blacks MDRD (S/P/Bld) [Vol rate/Area] mL/min/{1.73_m2} Normal >60 [facility] Comment on above: Result Comment: >60 mL/min/1.73m2 EGFR, calc. for ages 18 and older using the MDRD formula (not corrected for weight), is valid for stable renal function. Performed By: #### C MPX #### [facility] [address] [place] [address] Globulin (S) [Mass/Vol] 3.1 g/dL Normal 2.3-3.5 [facility] Comment on above: Performed By: #### C MPX #### [facility] [address] [place] [address] Glucose [Mass/Vol] 95 mg/dL Normal 70-99 [facility] Comment on above: Performed By: #### C MPX #### [facility] [address] [place] [address] Magnesium [Moles/Vol] 4.2 mmol/L Normal 3.4-4.9 [facility] Comment on above: Performed By: #### C MPX #### [facility] [address] [place] [address] Protein [Mass/Vol] 7.5 g/dL Normal 6.3-8.0 [facility] Comment on above: Performed By: #### C MPX #### [facility] [address] [place] [address] Sodium [Moles/Vol] 138 mmol/L Normal 135-144 [facility] Comment on above: Performed By: #### C MPX #### [facility] [address] [place] [address] Urea nitrogen [Mass/Vol] 14 mg/dL Normal 6-20 [facility] Comment on above: Performed By: #### C MPX #### [facility] [address] [place] [address] Comprehensive Metabolic Pane l w/ Reflex to MGon 10-28-2021 Albumin [Mass/Vol] 4.4 g/dL 3.5 - 4.6 g/dL [facility] ALP (Bld) [Catalytic activity/Vol] 118 U/L 40 - 130 U/L [facility] ALT [Catalytic activity/Vol] 6 U/L 0 - 33 U/L [facility] Anion gap [Moles/Vol] 11 mmol/L [facility] AST [Catalytic activity/Vol] 8 U/L 0 - 35 U/L [facility] Bilirubin [Mass/Vol] 0.4 mg/dL 0.2 - 0 .7 mg/dL [facility] Calcium [Mass/Vol] 9.7 mg/dL 8.5 - 9.9 mg/dL [facility] Chloride [Moles/Vol] 104 mmol/L [facility] CO2 [Moles/Vol] 23 mmol/L [facility] Creatinine [Mass/Vol] 0.6 mg/dL 0.5 - 0.9 mg/dL [facility] Free PSA/Total PSA [Mass fraction] 7.5 g/dL 6.3 - 8 g/dL [facility] GFR >60.0 60 - PINF [facility] Comment on above: >60 mL/min/1.73m2 EG FR, calc. for ages 18 and older using the MDRD formula (not corrected for weight), is valid for stable renal function. GFR Non- >60.0 60 - PINF [facility] Comment on above: >60 mL/min/1.73m2 EG FR, calc. for ages 18 and older using the MDRD formula (not corrected for weight), is valid for stable renal function. Globulin (S) [Mass/Vol] 3.1 g/dL 2.3 - 3.5 g/dL [facility] Glucose [Mass/Vol] 95 mg/dL 70 - 99 mg/dL [facility] Potassium reflex Magnesium 4.2 [facility] Sodium [Moles/Vol] 138 mmol/L [facility] Urea nitrogen (BldV) [Mass/Vol] 14 mg/dL 6 - 20 mg/dL [facility] Culture, Wound AerobicShen 10-28-2021 Culture, Wound Aerobic, Anaerobic ORDER#: [id number] ORDERED BY: SPRING OROZCO SOURCE: Incision COLLECTED: 10/28/21 16:45 ANTIBIOTICS AT [place].: RECEIVED : 10/28/21 22:09 Culture, Wound Aerobic, Anaerobic PRELIM 11/01/21 08:12 Direct Exam: NO NEUTROPHILS SEEN Direct Exam: NO BACTERIA SEEN Cult,Aerobe/Anaerobe: GRAM NEGATIVE RODS Cult,Aerobe/Anaerobe: LIGHT GROWTH Cult,Aerobe/Anaerobe: Mixed skin to Cult,Aerobe/Anaerobe: No anaerobic organisms isolated at 3 days. Performed at [address] [address] Normal [facility] Comment on above: Performed By: #### I CWAN #### [facility] [address] [facility] [id number] , Urineon 2 Beta HCG ( test) Ql (U) Negative Detects HCG level >20 MIU/mL [facility] UR HCG Qualitativeon 022 Beta HCG ( test) Ql (U) Negative Normal Detects HC [facility] Comment on above: Performed By: #### C BCWD #### [facility] [address] [facility] [address] Urinalysis with Reflex to Cu ltureon 10-28-2021 Bilirubin Urine Negative Negative [facility] Blood, Urine Negative Negative [facility] Clarity, UA Clear Clear [facility] Color, UA Yellow Straw/Yellow [facility] Glucose, Ur Negative Negative mg/dL [facility] Ketones Ql (U) Negative Negative mg/dL [facility] Leukocyte esterase Test strip Ql (U) Negative Negative [facility] Nitrite, Urine Negative Negative [facility] pH, UA 5.5 5 - 9 [facility] Protein, UA Negative Negative mg/dL [facility] Specific [place], UA 1.015 1.005 - 1.03 [facility] Urine Reflex to Culture Not Indicated [facility] Urobilinogen, Urine 0.2 NINF [facility] Urinalysis, reflex to cultur minoo 10-28-2021 Bilirubin Ql (U) Negative Normal Negative [facility] Comment on above: Performed By: #### U AR #### [facility] [address] [place] [address] Clarity (U) Clear Normal Clear [facility] Comment on above: Performed By: #### U AR #### [facility] [address] [place] [address] Color (U) Yellow Normal Straw/Dooly [facility] Comment on above: Performed By: #### U AR #### [facility] [address] [place] [address] Glucose Ql (U) Negative Normal Negative [facility] Comment on above: Performed By: #### U AR #### [facility] [address] [place] [address] Hemoglobin Ql (U) Negative Normal Negative [facility] Comment on above: Performed By: #### U AR #### [facility] [address] [place] [address] Ketones Ql (U) Negative Normal Negative [facility] Comment on above: Performed By: #### U AR #### [facility] [address] [place] [address] Leukocyte esterase Test strip Ql (U) Negative Normal Negative [facility] Comment on above: Performed By: #### U AR #### [facility] [address] [place] [address] Nitrite Ql (U) Negative Normal Negative [facility] Comment on above: Performed By: #### U AR #### [facility] [address] [place] [address] pH (U) 5.5 [pH] Normal 5.0-9.0 [facility] Comment on above: Performed By: #### U AR #### [facility] [address] [place] [address] Protein Ql (U) Negative Normal Negative [facility] Comment on above: Performed By: #### U AR #### [facility] [address] [place] [address] Specific gravity (U) [Rel density] 1.015 Normal 1.005-1.03 [facility] Comment on above: Performed By: #### U AR #### [facility] [address] [facility] [address] Urine Reflexed to Culture Not Indicated Normal [facility] Comment on above: Performed By: #### U AR #### [facility] [address] [place] [address] Urobilinogen Qn (U) 0.2 {Ginger'U}/dL Normal < 2.0 [facility] Comment on above: Performed By: #### U AR #### [facility] [address] [facility] [address] Allergen, Food, Comprehensiv e Profile 08-31-2021 Allergen, Food, Barley IgE <0.[address] [facility] Allergen, Food, Beef IgE <0.10 [facility] Allergen, Food, Cabbage <0.10 [facility] Allergen, Food, Carrot <0.10 [facility] Allergen, Food, Chicken <0.10 [facility] Allergen, Food, Codfish IgE <0.10 [facility] Allergen, Food, [place] IgE <0.[address] [facility] Allergen, Food, Crab IgE <0.10 [facility] Allergen, Food, Egg White <0.10 [facility] Allergen, Food, Grape IgE <0.10 [facility] Allergen, Food, Lettuce IgE <0.[address] [facility] Allergen, Food, Milk (Cow) IgE <0.[address] [facility] Allergen, Food, [place] <0.10 [facility] Allergen, Food, Oat IgE <0.10 [facility] Allergen, Food, [place] IgE <0.[address] [facility] Allergen, Food, Peanut IgE <0.10 [facility] Allergen, Food, Pepper C. annuum IgE <0.[address] [facility] Allergen, Food, Pork IgE <0.[address] [facility] Comment on above: Result Comment: [facility] [address] [place], [place] [id number] [phone] Allergen, Food, Potato <0.[address] [facility] Allergen, Food, Rice IgE <0.[address] [facility] Allergen, Food, [place] IgE <0.[address] [facility] Allergen, [...] [facility] Comment on above: Result Comment: [facility] [address] [place], [place] [id number] ([phone] CBC With Platelet and Differ entialon 08-21-2021 Abs Imm Granulocytes 0.0 K/uL Normal [facility] Comment on above: Performed By: #### C BCWD #### [facility] [address] [place] [address] Basophils (Bld) [#/Vol] 0.0 10*3/uL Normal 0.0-0.1 [facility] Comment on above: Performed By: #### C BCWD #### [facility] [address] [place] [address] Basophils/100 WBC (Bld) 0.3 % Normal 0.1-1.2 [facility] Comment on above: Performed By: #### C BCWD #### [facility] [address] [place] [address] Eosinophils (Bld) [#/Vol] 0.2 10*3/uL Normal 0.0-0.4 [facility] Comment on above: Performed By: #### C BCWD #### [facility] [address] [place] [address] Eosinophils/100 WBC (Bld) 2.4 % Normal 0.7-5.8 [facility] Comment on above: Performed By: #### C BCWD #### [facility] [address] [place] [address] Erythrocyte distribution width (RBC) [Ratio] 12.6 % Normal 11.7-14.4 [facility] Comment on above: Performed By: #### C BCWD #### [facility] [address] [place] [address] Hematocrit (Bld) [Volume fraction] 41.7 % Normal 37.0-47.0 [facility] Comment on above: Performed By: #### C BCWD #### [facility] [address] [place] [address] Hemoglobin (Bld) [Mass/Vol] 13.6 g/dL Normal 11.2-15.7 [facility] Comment on above: Performed By: #### C BCWD #### [facility] [address] [place] [address] Imm Granulocytes 0.3 % Normal [facility] Comment on above: Performed By: #### C BCWD #### [facility] [address] [place] [address] Lymphocytes (Bld) [#/Vol] 2.2 10*3/uL Normal 1.2-3.7 [facility] Comment on above: Performed By: #### C BCWD #### [facility] [address] [place] [address] Lymphocytes/100 WBC (Bld) 25.3 % Normal [facility] Comment on above: Performed By: #### C BCWD #### [facility] [address] [place] [address] MCH (RBC) [Entitic mass] 30.8 pg Normal 25.6-32.2 [facility] Comment on above: Performed By: #### C BCWD #### [facility] [address] [place] [address] MCHC 32.6 % Normal 32.2-35.5 [facility] Comment on above: Performed By: #### C BCWD #### [facility] [address] [place] [address] MCV (RBC) [Entitic vol] 94.6 fL Normal 79.4-94.8 [facility] Comment on above: Performed By: #### C BCWD #### [facility] [address] [place] [address] Monocytes (Bld) [#/Vol] 0.4 10*3/uL Normal 0.2-0.9 [facility] Comment on above: Performed By: #### C BCWD #### [facility] [address] [place] [address] Monocytes/100 WBC (Bld) 4.4 % Low 4.7-12.5 [facility] Comment on above: Performed By: #### C BCWD #### [facility] [address] [place] [address] Neutrophils (Bld) [#/Vol] 5.8 10*3/uL Normal 1.6-6.1 [facility] Comment on above: Performed By: #### C BCWD #### [facility] [address] [place] [address] Neutrophils/100 WBC (Bld) 67.3 % Normal 34.0-71.1 [facility] Comment on above: Performed By: #### C BCWD #### [facility] [address] [place] [address] Platelets (Bld) [#/Vol] 200 10*3/uL Normal 182-369 [facility] Comment on above: Performed By: #### C BCWD #### [facility] [address] [place] [address] RBC (Bld) [#/Vol] 4.41 10*6/uL Normal 3.93-5.22 [facility] Comment on above: Performed By: #### C BCWD #### [facility] [address] [place] [address] WBC (Bld) [#/Vol] 8.6 10*3/uL Normal 4.0-10.0 [facility] Comment on above: Performed By: #### C BCWD #### [facility] [address] [place] [address] CBC with Auto Differentialon 08-21-2021 Basophils (Bld) [#/Vol] 0.0 10*3/uL 0.0 - 0.1 K/uL [facility] Basophils/100 WBC (Bld) 0.3 % 0.1 - 1.2 % [facility] Eosinophils (Bld) [#/Vol] 0.2 10*3/uL 0.0 - 0.4 K/uL [facility] Eosinophils/100 WBC (Bld) 2.4 % 0.7 - 5.8 % [facility] Hematocrit (Bld) [Volume fraction] 41.7 % 37.0 - 47.0 % [facility] Hemoglobin (Bld) [Mass/Vol] 13.6 g/dL 11.2 - 15.7 g/dL [facility] Immature granulocytes (Bld) [#/Vol] 0.0 10*3/uL [facility] Immature granulocytes/100 WBC (Bld) 0.3 % [facility] Interpretation and review of laboratory results Abnormal [facility] Lymphocytes (Bld) [#/Vol] 2.2 10*3/uL 1.2 - 3.7 K/uL [facility] Lymphocytes/100 WBC (Bld) 25.3 % [facility] MCH (RBC) [Entitic mass] 30.8 pg 25.6 - 32.2 pg [facility] MCHC (RBC) [Mass/Vol] 32.6 % 32.2 - 35.5 % [facility] MCV (RBC) [Entitic vol] 94.6 fL 79.4 - 94.8 fL [facility] Monocytes (Bld) [#/Vol] 0.4 10*3/uL 0.2 - 0.9 K/uL [facility] Monocytes/100 WBC (Bld) 4.4 % Low 4.7 - 12.5 % [facility] Neutrophils Absolute 5.8 K/uL 1.6 - 6 .1 K/uL [facility] Neutrophils/100 WBC (Bld) 67.3 % 34.0 - 71.1 % [facility] Platelet distribution width (Bld) [Ratio] 12.6 % 11.7 - 14.4 % [facility] Platelets (Bld) [#/Vol] 200 10*3/uL 182 - 369 K/uL [facility] RBC (Bld) [#/Vol] 4.41 10*6/uL [facility] WBC (Bld) [#/Vol] 8.6 10*3/uL 4.0 - 10.0 K/uL [facility] COVID-19on 08-21-2021 SARS-CoV-2 (COVID-19) RNA JOSIE+probe Ql (Unsp spec) Not detected Normal Not Detect [facility] Comment on above: Result Comment: Brittani [...] authorized laboratories. Fact sheet for Healthcare Providers: https://www.fda.gov/media/340985/download Fact sheet for Patients: https://www.fda.gov/media/411955/download METHODOLOGY: Isothermal Nucleic Acid Amplification Performed By: #### C BCWD #### [facility] [address] [place] [address] COVID-19, Rapidon 08-21-2021 SARS-CoV-2 (COVID-19) RNA JOSIE+probe Ql (Unsp spec) Not detected Not Detected [facility] Comment on above: Rapid NAAT: [...] authorized laboratories. Fact sheet for Healthcare Providers: https://www.fda.gov/media/137830/download Fact sheet for Patients: https://www.fda.gov/media/200964/download METHODOLOGY: Isothermal Nucleic Acid Amplification [facility] CT ABDOMEN PELVIS W IV [...] Some of this report was completed using [employer] voice-recognition technology and may include unintended errors [...] Mckay Solis MD 08/21/21 Final result Normal [facility] Comprehensive Metabolic Pane l reflex Mgon 08-21-2021 Albumin [Mass/Vol] 4.3 g/dL Normal 3.5-4.6 [facility] Comment on above: Performed By: #### C BCWD #### [facility] [address] [place] [address] ALP [Catalytic activity/Vol] 116 U/L Normal 40-130 [facility] Comment on above: Performed By: #### C BCWD #### [facility] [address] [place] [address] ALT [Catalytic activity/Vol] 8 U/L Normal 0-33 [facility] Comment on above: Performed By: #### C BCWD #### [facility] [address] [place] [address] Anion gap [Moles/Vol] 13 mmol/L Normal 9-15 [facility] Comment on above: Performed By: #### C BCWD #### [facility] [address] [place] [address] AST [Catalytic activity/Vol] 10 U/L Normal 0-35 [facility] Comment on above: Performed By: #### C BCWD #### [facility] [address] [place] [address] Bilirubin [Mass/Vol] mg/dL Normal 0.2-0.7 [facility] Comment on above: Performed By: #### C BCWD #### [facility] [address] [place] [address] Calcium [Mass/Vol] 9.3 mg/dL Normal 8.5-9.9 [facility] Comment on above: Performed By: #### C BCWD #### [facility] [address] [place] [address] Chloride [Moles/Vol] 105 mmol/L Normal 95-107 [facility] Comment on above: Performed By: #### C BCWD #### [facility] [address] [place] [address] CO2 [Moles/Vol] 22 mmol/L Normal 20-31 [facility] Comment on above: Performed By: #### C BCWD #### [facility] [address] [place] [address] Creatinine [Mass/Vol] 0.48 mg/dL Low 0.50-0.90 [facility] Comment on above: Performed By: #### C BCWD #### [facility] [address] [place] [address] GFR >60.0 Normal >60 [facility] Comment on above: Result Comment: >60 mL/min/1.73m2 EGFR, calc. for ages 18 and older using the MDRD formula (not corrected for weight), is valid for stable renal function. Performed By: #### C BCWD #### [facility] [address] [place] [address] GFR/1.73 sq M.predicted among blacks MDRD (S/P/Bld) [Vol rate/Area] mL/min/{1.73_m2} Normal >60 [facility] Comment on above: Result Comment: >60 mL/min/1.73m2 EGFR, calc. for ages 18 and older using the MDRD formula (not corrected for weight), is valid for stable renal function. Performed By: #### C BCWD #### [facility] [address] [place] [address] Globulin (S) [Mass/Vol] 2.5 g/dL Normal 2.3-3.5 [facility] Comment on above: Performed By: #### C BCWD #### [facility] [address] [place] [address] Glucose [Mass/Vol] 114 mg/dL Critically high 70-99 [facility] Comment on above: Performed By: #### C BCWD #### [facility] [address] [place] [address] Magnesium [Moles/Vol] 3.6 mmol/L Normal 3.4-4.9 [facility] Comment on above: Performed By: #### C BCWD #### [facility] [address] [place] [address] Protein [Mass/Vol] 6.8 g/dL Normal 6.3-8.0 [facility] Comment on above: Performed By: #### C BCWD #### [facility] [address] [place] [address] Sodium [Moles/Vol] 140 mmol/L Normal 135-144 [facility] Comment on above: Performed By: #### C BCWD #### [facility] [address] [place] [address] Urea nitrogen [Mass/Vol] 10 mg/dL Normal 6-20 [facility] Comment on above: Performed By: #### C BCWD #### [facility] [address] [place] [address] Comprehensive Metabolic Pane l w/ Reflex to MGon 08-21-2021 Albumin [Mass/Vol] 4.3 g/dL 3.5 - 4.6 g/dL [facility] ALP (Bld) [Catalytic activity/Vol] 116 U/L 40 - 130 U/L [facility] ALT [Catalytic activity/Vol] 8 U/L 0 - 33 U/L [facility] Anion gap [Moles/Vol] 13 mmol/L [facility] AST [Catalytic activity/Vol] 10 U/L 0 - 35 U/L [facility] Bilirubin [Mass/Vol] mg/dL 0.2 - 0 .7 mg/dL [facility] Calcium [Mass/Vol] 9.3 mg/dL 8.5 - 9.9 mg/dL [facility] Chloride [Moles/Vol] 105 mmol/L [facility] CO2 [Moles/Vol] 22 mmol/L [facility] Creatinine [Mass/Vol] 0.48 mg/dL Low 0.50 - 0.90 mg/dL [facility] Free PSA/Total PSA [Mass fraction] 6.8 g/dL 6.3 - 8.0 g/dL [facility] GFR >60.0 >60 [facility] Comment on above: >60 mL/min/1.73m2 EG FR, calc. for ages 18 and older using the MDRD formula (not corrected for weight), is valid for stable renal function. GFR Non- >60.0 >60 [facility] Comment on above: >60 mL/min/1.73m2 EG FR, calc. for ages 18 and older using the MDRD formula (not corrected for weight), is valid for stable renal function. Globulin (S) [Mass/Vol] 2.5 g/dL 2.3 - 3.5 g/dL [facility] Glucose [Mass/Vol] 114 mg/dL High 70 - 99 mg/dL [facility] Interpretation and review of laboratory results Abnormal [facility] Potassium reflex Magnesium 3.6 [facility] Sodium [Moles/Vol] 140 mmol/L [facility] Urea nitrogen (BldV) [Mass/Vol] 10 mg/dL 6 - 20 mg/dL [facility] Lipaseon 08-21-2021 Lipase [Catalytic activity/Vol] 18 U/L Normal 12-95 [facility] Comment on above: Performed By: #### L IPAS #### [facility] [address] [id number] Lipase [Catalytic activity/Vol] 18 U/L 12 - 95 U/L [facility] No Panel Informationon 08-21 [facility] , Urineon 2 Beta HCG ( test) Ql (U) Negative Detects HCG level >20 MIU/mL [facility] UR HCG Qualitativeon 022 Beta HCG ( test) Ql (U) Negative Normal Detects [facility] Comment on above: Performed By: #### C BCWD #### [facility] [address] [place] [address] Urinalysis with Reflex to Cu ltureon 08-21-2021 Bilirubin Urine Negative Negative [facility] Blood, Urine Negative Negative [facility] Clarity, UA Clear Clear [facility] Color, UA Yellow Straw/Yellow [facility] Glucose, Ur Negative Negative mg/dL [facility] Ketones Ql (U) Negative Negative mg/dL [facility] Leukocyte esterase Test strip Ql (U) Negative Negative [facility] Nitrite, Urine Negative Negative [facility] pH, UA 5.5 [facility] Protein, UA Negative Negative mg/dL [facility] Specific [place], UA <=1.005 [facility] Urine Reflex to Culture Not Indicated [facility] Urobilinogen, Urine 0.2 <2.0 E.U./dL [facility] Urinalysis, reflex to cultur minoo 08-21-2021 Bilirubin Ql (U) Negative Normal Negative [facility] Comment on above: Performed By: #### C BCWD #### [facility] [address] [place] [address] Clarity (U) Clear Normal Clear [facility] Comment on above: Performed By: #### C BCWD #### [facility] [address] [place] [address] Color (U) Yellow Normal Straw/Dooly [facility] Comment on above: Performed By: #### C BCWD #### [facility] [address] [place] [address] Glucose Ql (U) Negative Normal Negative [facility] Comment on above: Performed By: #### C BCWD #### [facility] [address] [place] [address] Hemoglobin Ql (U) Negative Normal Negative [facility] Comment on above: Performed By: #### C BCWD #### [facility] [address] [place] [address] Ketones Ql (U) Negative Normal Negative [facility] Comment on above: Performed By: #### C BCWD #### [facility] [address] [place] [address] Leukocyte esterase Test strip Ql (U) Negative Normal Negative [facility] Comment on above: Performed By: #### C BCWD #### [facility] [address] [place] [address] Nitrite Ql (U) Negative Normal Negative [facility] Comment on above: Performed By: #### C BCWD #### [facility] [address] [place] [address] pH (U) 5.5 [pH] Normal 5.0-9.0 [facility] Comment on above: Performed By: #### C BCWD #### [facility] [address] [place] [address] Protein Ql (U) Negative Normal Negative [facility] Comment on above: Performed By: #### C BCWD #### [facility] [address] [place] [address] Specific gravity (U) [Rel density] <=1.005 Normal 1.005-1.03 [facility] Comment on above: Performed By: #### C BCWD #### [facility] [address] [place] [address] Urine Reflexed to Culture Not Indicated Normal [facility] Comment on above: Performed By: #### C BCWD #### [facility] [address] [place] [address] Urobilinogen Qn (U) 0.2 {Ginger'U}/dL Normal < 2.0 [facility] Comment on above: Performed By: #### C BCWD #### [facility] [address] [place] [address] CBC WITH AUTO DIFFERENTIALon 02-29-2020 Basophils (Bld) [#/Vol] 0.0 10*3/uL 0 - 0.2 K/uL [facility] [place] Basophils/100 WBC (Bld) 0.4 % [place] Eosinophils (Bld) [#/Vol] 0.2 10*3/uL 0 - 0.7 K/uL [place] Eosinophils/100 WBC (Bld) 2.6 % [place] Erythrocyte distribution width (RBC) [Ratio] 13.6 % 11.5 - 14.5 % [place] Hematocrit (Bld) [Volume fraction] 40.3 % 37 - 47 % [place] Hemoglobin (Bld) [Mass/Vol] 13.6 g/dL 12 - 16 g/dL [place] Lymphocytes (Bld) [#/Vol] 1.7 10*3/uL 1 - 4.8 K/uL [place] Lymphocytes/100 WBC (Bld) 21.0 % [place] MCH (RBC) [Entitic mass] 31.0 pg 27 - 31.3 pg [place] MCHC (RBC) [Mass/Vol] 33.9 % 33 - 37 % [place] MCV (RBC) [Entitic vol] 91.6 fL 82 - 100 fL [place] Monocytes (Bld) [#/Vol] 0.4 10*3/uL 0.2 - 0.8 K/uL [place] Monocytes/100 WBC (Bld) 4.6 % [place] Neutrophils Absolute 5.6 K/uL 1.4 - 6 .5 K/uL [place] Neutrophils/100 WBC (Bld) 71.4 % [place] Platelets (Bld) [#/Vol] 195 10*3/uL 130 - 400 K/uL [place] RBC (Bld) [#/Vol] 4.40 10*6/uL [place] WBC (Bld) [#/Vol] 7.9 10*3/uL 4.8 - 10.8 K/uL [place] COVID-19on 02-29-2020 SARS-CoV-2, NAAT Not Detected Not Detected [place] Comment on above: Rapid NAAT: Negative [...] authorized laboratories. Fact sheet for Healthcare Providers: https://www.fda.gov/media/832516/download Fact sheet for Patients: https://www.fda.gov/media/374965/download METHODOLOGY: Isothermal Nucleic Acid Amplification POC UR-QUALon 02-11 Beta HCG ( test) Ql (U) Negative Negative [place] Lot Number HCG [id number] [place] Negative QC Pass/Fail Pass [place] Positive QC Pass/Fail Pass [place] Hemoglobinon 11-03-2019 Hemoglobin (Bld) [Mass/Vol] 11.2 g/dL Low 12 - 16 g/dL [place] Interpretation and review of laboratory results Abnormal [place] RPRon 11-03-2019 [place] Ab RPR Ql (S) Non-reactive Non-reactive [place] CBC auto differentialon 10-13 Basophils (Bld) [#/Vol] 0.0 10*3/uL 0 - 0.2 K/uL [place] Basophils/100 WBC (Bld) 0.3 % [place] Eosinophils (Bld) [#/Vol] 0.1 10*3/uL 0 - 0.7 K/uL [place] Eosinophils/100 WBC (Bld) 1.2 % [place] Erythrocyte distribution width (RBC) [Ratio] 13.4 % 11.5 - 14.5 % [place] Hematocrit (Bld) [Volume fraction] 34.9 % Low 37 - 47 % [place] Hemoglobin (Bld) [Mass/Vol] 11.7 g/dL Low 12 - 16 g/dL [place] Interpretation and review of laboratory results Abnormal [place] Lymphocytes (Bld) [#/Vol] 1.4 10*3/uL 1 - 4.8 K/uL [place] Lymphocytes/100 WBC (Bld) 11.4 % [place] MCH (RBC) [Entitic mass] 31.2 pg 27 - 31.3 pg [place] MCHC (RBC) [Mass/Vol] 33.6 % 33 - 37 % [place] MCV (RBC) [Entitic vol] 93.0 fL 82 - 100 fL [place] Monocytes (Bld) [#/Vol] 0.5 10*3/uL 0.2 - 0.8 K/uL [place] Monocytes/100 WBC (Bld) 4.2 % [place] Neutrophils Absolute 10.1 K/uL High 1.4 - 6 .5 K/uL [place] Neutrophils/100 WBC (Bld) 82.9 % [place] Platelets (Bld) [#/Vol] 191 10*3/uL 130 - 400 K/uL [place] RBC (Bld) [#/Vol] 3.75 10*6/uL Low [place] WBC (Bld) [#/Vol] 12.1 10*3/uL High 4.8 - 10.8 K/uL [place] Comprehensive Metabolic Pane fortunato 11-02-2019 Albumin [Mass/Vol] 3.2 g/dL Low 3.5 - 4.6 g/dL [place] ALP [Catalytic activity/Vol] 147 U/L High 40 - 130 U/L [place] ALT [Catalytic activity/Vol] 6 U/L 0 - 33 U/L [place] Anion gap [Moles/Vol] 10 mmol/L [place] AST [Catalytic activity/Vol] 7 U/L 0 - 35 U/L [place] Bilirubin Ql (U) <0.2 0.2 - 0.7 mg/dL [place] Calcium [Mass/Vol] 8.4 mg/dL Low 8.5 - 9.9 mg/dL [place] Chloride [Moles/Vol] 104 mmol/L [place] CO2 [Moles/Vol] 21 mmol/L [place] Creatinine [Mass/Vol] 0.3 mg/dL Low 0.5 - 0.9 mg/dL [place] GFR >60.0 >60 [place] Comment on above: >60 mL/min/1.73m2 EG FR, calc. for ages 18 and older using the MDRD formula (not corrected for weight), is valid for stable renal function. GFR Non- >60.0 >60 [place] Comment on above: >60 mL/min/1.73m2 EG FR, calc. for ages 18 and older using the MDRD formula (not corrected for weight), is valid for stable renal function. Globulin (S) [Mass/Vol] 2.8 g/dL 2.3 - 3.5 g/dL [place] Glucose [Mass/Vol] 103 mg/dL High 70 - 99 mg/dL [place] Interpretation and review of laboratory results Abnormal [place] Potassium [Moles/Vol] 3.9 mmol/L [place] Protein [Mass/Vol] 6.0 g/dL Low 6.3 - 8 g/dL [place] Sodium [Moles/Vol] 135 mmol/L [place] Urea nitrogen [Mass/Vol] 8 mg/dL 6 - 20 mg/dL [place] DRUG SCREEN MULTI URINEon Amphetamine Screen, Urine Negative Negative <1000 ng/mL [place] Barbiturate Screen, Ur Negative Negative < 200 ng/mL [place] Benzodiazepine Screen, Urine Negative Negative < 200 ng/mL [place] Cannabinoid Scrn, Ur Negative Negativ e < 50 ng/mL [place] Cocaine Metabolite Screen, Urine Negative Negative < 300 ng/mL [place] Drug Screen Comment: see below [place] Comment on above: This method is a scr eening test to detect only these drug classes as part of a medical workup. Confirmatory testing by another method should be ordered if clinically indicated. Methadone Screen, Urine Negative Negative <300 ng/mL [place] Comment on above: Effective: 10/20/18 New Test for Qualitative Drug Screen. Opiate Scrn, Ur Negative Negative < 300 ng/mL [place] Oxycodone Urine Negative Negative <10 0 ng/mL [place] Comment on above: Effective: 10/20/18 New Test for Qualitative Drug Screen. PCP Screen, Urine Negative Negative < 25 ng/mL [place] Propoxyphene Scrn, Ur Negative Negative <300 ng/mL [place] Comment on above: Effective: 10/20/18 New Test for Qualitative Drug Screen. Hepatitis B surface antigeno n 11-02-2019 Hep B S Ag Interp Non-reactive [place] Rubella antibody, IgGon 10-13 Rubella Antibody IgG 69.5 IU/mL [place] Comment on above: Patient's result ind icates immunity. Default Normal Ranges >=10 Presumed Immune <10 Presumed Not immune TYPE AND SCREENon 11-02-2019 ABO/Rh Positive [place] Urinalysison 11-02-2019 Bilirubin Urine Negative Negative [place] Blood, Urine Negative Negative [place] Clarity, UA Clear Clear [place] Color, UA Yellow Straw/Yellow [place] Glucose, Ur Negative Negative mg/dL [place] Ketones Ql (U) Negative Negative mg/dL [place] Leukocyte esterase Test strip Ql (U) Negative Negative [place] Nitrite, Urine Negative Negative [place] pH, UA 7.5 [place] Protein (U) [Mass/Vol] Negative Negative mg/dL [place] Specific [place], UA 1.020 [place] Urobilinogen, Urine 0.2 <2.0 E.U./dL [place] Otheron 06-19-2019 APPROPRIATE GROWTH SINCE LAST SONOGRAM. [place] Sonogram #: 1 Presentation: Transverse, head [...] the amniotic fluid is within normal limits. [employer] [facility] [place], [place] Manny, Chpo Incoming Radiant Results From [email or web address] - 06/19/2019 5:09 PM EDT Sonogram #: [...] limits. IMPRESSION: APPROPRIATE GROWTH SINCE LAST SONOGRAM. Movie[employer], W-locate US OB LESS THAN 14 WEEKS SIN GLE OR FIRST GESTATIONon 04-14-2019 THERE IS A SINGLE IU P WITH ESTIMATED GESTATIONAL AGE BASED UPON CROWN-RUMP LENGTH OF 10 WEEKS 2 DAYS +/- 1 WEEK WITH HEART RATE OF 155 BPM. ANATOMY IS NOT ASSESSED DUE TO EARLY GESTATIONAL AGE. THE RIGHT OVARY IS SURGICALLY ABSENT. THE LEFT OVARY SUBMITTED VISUALIZED. [place] TRANSABDOMINAL EXAMINATION OF THE PELVIS CLINICAL DATA: [...] ovary is not visualized. No free fluid. [facility] Manny[facility] Chpo Incoming Radiant Results From [employer] - 04/14/2019 4:16 PM EST TRANSABDOMINAL EXAMINATION [...] SURGICALLY ABSENT. THE LEFT OVARY SUBMITTED VISUALIZED. [facility] PROGRESSon 09-30-2018 PROGRESS HNO ID: [id number] Author: Maranda Parker (Christian) Vimal Service: ? Author Type: SPECIAL INVESTIGATION UNIT INVESTIGATOR Type: Progress Notes Filed: 09/30/2018 3:29 PM [...] OD September 30, 2018 2:08 PM Normal [facility] PROGRESSon 04-24-2018 PROGRESS HNO ID: [id number] Author: Maranda Celis Service: ? Author Type: SPECIAL INVESTIGATION UNIT INVESTIGATOR Type: Progress Notes Filed: 04/24/2018 3:32 PM [...] OD April 24, 2018 3:31 PM Normal [facility] Office Visit (Urgent Care)on 08-21-2017 Office Visit (Urgent Care) Chief Complaint Rash History of Present [id number]-albh-cib female who 2 hours ago was sitting [...] 08/21/2017 5:38:10 PM Vitals Vital Signs Recorded: [id number]:[id number]. 5 FHeart [id number] [id number] Height5 ft 3 sqNuyvck980 lb BMI [id number] Calculated1.83O2 Rdxmkvjiqr05Fvvo Scale0 Physical ExamPatient appears in no apparent [...] 160 cm Sulema Teran DO Work Phone: [email or web address] 12-16-2021 07:12-0400 Body mass index (BMI) [Ratio] 31.89 kg/m2 Sulema Teran DO Work Phone: [email or web address] 12-16-2021 07:12-0400 Body temperature 98.91 [degF] Sulema Teran DO Work Phone: [email or web address] 12-16-2021 07:12-0400 Body weight 81.65 kg Sulema Teran DO Work Phone: [email or web address] 12-16-2021 07:12-0400 Diastolic blood pressure 84 mm[Hg] Sulema Teran DO Work Phone: [email or web address] 12-16-2021 07:12-0400 Heart rate 104 /min Sulema Teran DO Work Phone: [email or web address] 12-16-2021 07:12-0400 Respiratory rate 18 /min Sulema Teran DO Work Phone: [facility] [employer] 12-16-2021 07:12-0400 SaO2% (BldA) [Mass fraction] 98 % Sulema Teran DO Work Phone: [facility] [employer] 12-16-2021 07:12-0400 Systolic blood pressure 127 mm[Hg] Sulema Teran DO Work Phone: [facility] [employer] 10-28-2021 15:43-0400 Body height 160 cm Nikki Martha-David PA-C Work Phone: [facility] [employer] 10-28-2021 15:43-0400 Body mass index (BMI) [Ratio] 31.89 kg/m2 Nikki Martha-David PA-C Work Phone: [facility] [employer] 10-28-2021 15:43-0400 Body temperature 98.1 [degF] Nikki Martha-David PA-C Work Phone: [facility] [employer] 10-28-2021 15:43-0400 Body weight 81.65 kg Nikki Martha-David PA-C Work Phone: [facility] [employer] 10-28-2021 15:43-0400 Diastolic blood pressure 81 mm[Hg] Nikki Martha-David PA-C Work Phone: [facility] [employer] 10-28-2021 15:43-0400 Heart rate 93 /min Nikki Martha-David PA-C Work Phone: [facility] 10-28-2021 15:43-0400 Respiratory rate 20 /min Nikki Martha-David PA-C Work Phone: [facility] [employer] 10-28-2021 15:43-0400 SaO2% (BldA) [Mass fraction] 98 % Nikki Martha-David PA-C Work Phone: [email or web address] 10-28-2021 15:43-0400 Systolic blood pressure 130 mm[Hg] Nikki Froilan PA-C Work Phone: [facility] [employer] 08-21-2021 06:21-0400 Body temperature 98.2 [degF] Penny Ritter MD Work Phone: [email or web address] 08-21-2021 06:21-0400 Diastolic blood pressure 58 mm[Hg] Penny Ritter MD Work Phone: [email or web address] 08-21-2021 06:21-0400 Heart rate 81 /min Penyn Ritter MD Work Phone: [email or web address] 08-21-2021 06:21-0400 Respiratory rate 16 /min Penny Ritter MD Work Phone: [email or web address] 08-21-2021 06:21-0400 SaO2% (BldA) [Mass fraction] 97 % Penny Ritter MD Work Phone: [email or web address] 08-21-2021 06:21-0400 Systolic blood pressure 116 mm[Hg] Penny Ritter MD Work Phone: [email or web address] 08-21-2021 01:09-0400 Body height 160 cm Penny Ritter MD Work Phone: [email or web address] 08-21-2021 01:09-0400 Body mass index (BMI) [Ratio] 32.06 kg/m2 Penny Ritter MD Work Phone: [email or web address] 08-21-2021 01:09-0400 Body weight 82.1 kg Penny Ritter MD Work Phone: [email or web address] 11-05-2020 07:21-0400 Body temperature 98.1 [degF] Rebecca Gonzalez [employer] Work Phone: 11-05-2020 07:21-0400 Diastolic blood pressure 71 mm[Hg] Rebecca Gonzalez [employer] Phone: 11-05-2020 07:21-0400 Heart rate 94 /min Rebecca Gonzalez [employer] Phone: 11-05-2020 07:21-0400 Respiratory rate 18 /min Rebecca Gonzalez [employer] Phone: 11-05-2020 07:21-0400 SaO2% (BldA) [Mass fraction] 99 % Rebecca Gonzalez [employer] Phone: 11-05-2020 07:21-0400 Systolic blood pressure 116 mm[Hg] Rebecca Gonzalez [employer] Phone: 02-29-2020 12:25-0500 Body Temperature 97.7 [degF] Rj [employer] [place] 02-29-2020 12:25-0500 BP Diastolic 56 mm[Hg] Rj [employer] [facility] [place] , [place] 02-29-2020 12:25-0500 BP Systolic 123 mm[Hg] Rj [employer] That [facility] , [place] 02-29-2020 12:25-0500 Pulse (Heart Rate) 76 /min [facility] [place] 02-29-2020 12:25-0500 Pulse Oximetry 99 % Rj [employer] [facility] , [place] 02-29-2020 12:25-0500 Respiratory Rate 16 /min Rj [employer] [place] 02-29-2020 08:15-0500 BMI (Body Mass Index) 34.54 kg/m2 Rj [place] [employer] [facility], [place] 02-29-2020 08:15-0500 Body weight 88.45 kg Rj [employer] [facility] , [place] 02-29-2020 08:15-0500 Height 160 cm [facility] [place] 11-04-2019 07:30-0400 Body Temperature 98.29 [degF] [facility] [place] 11-04-2019 07:30-0400 BP Diastolic 68 mm[Hg] Rj [facility] , [place] 11-04-2019 07:30-0400 BP Systolic 115 mm[Hg] Rj [facility] , [place] 11-04-2019 07:30-0400 Pulse (Heart Rate) 88 /min Rj [facility], [place] 11-04-2019 07:30-0400 Respiratory Rate 16 /min Rj [facility], [place] 11-03-2019 12:37-0400 Pulse Oximetry 99 % Rj [facility] , [place] 11-02-2019 07:45-0400 BMI (Body Mass Index) 37.91 kg/m2 Rj [facility], [place] 11-02-2019 07:45-0400 Body weight 97.07 kg Rj [facility] , [place] 11-02-2019 07:45-0400 Height 160 cm Rj [facility] , [place] 09-30-2018 10:02-0400 BMI (Body Mass Index) 31 kg/m2 Tip [facility], [place] 09-30-2018 10:02-0400 Body Temperature 98.49 [degF] Tip [facility], [place] 09-30-2018 10:02-0400 Body [facility] [place] 09-30-2018 10:02-0400 BP Diastolic 71 mm[Hg] formerly [facility] , [place] 09-30-2018 10:02-0400 BP Systolic 139 mm[Hg] formerly [facility] , [place] 09-30-2018 10:02-0400 Height 160 cm formerly [facility] , [place] 09-30-2018 10:02-0400 Pulse (Heart Rate) 102 /min formerly [facility], [place] 09-30-2018 10:02-0400 Pulse Oximetry 98 % formerly [facility] , [place] 09-30-2018 10:02-0400 Respiratory Rate 14 /min [facility] [place] Encounters Encounter Date Encounter Type Care Provider Facility Start: 04-01-2023 End: 04-01-2023 ambulatory JOSE F SETH Not Available Start: 03-21-2023 End: 03-21-2023 ambulatory JOSE F R SETH [facility] Start: 03-18-2023 Chart abstracting Fish lorenz MD Work Phone: [facility]- [facility] at [facility] Start: 03-11-2023 End: 03-11-2023 ambulatory JOSE F SETH Not Available Start: 02-18-2023 End: 02-18-2023 ambulatory DONNELL FINCH Not Available Start: 01-29-2023 End: 01-30-2023 ambulatory [facility] Facility:[facility] Start: 01-29-2023 End: 01-29-2023 Patient encounter procedure Jose F R SETH [facility] Start: 01-29-2023 End: 01-30-2023 ambulatory Jose F R SETH Facility:[facility] Start: 01-29-2023 End: 01-29-2023 Patient encounter procedure Jose F R SETH [facility] Start: 01-11-2023 End: 01-12-2023 ambulatory Jose F R SETH Facility:[facility] Start: 01-11-2023 End: 01-11-2023 Patient encounter procedure Jose F R SETH [facility] Start: 01-10-2023 End: 01-10-2023 ambulatory JOSE F SETH Not Available Start: 12-28-2022 End: 12-28-2022 ambulatory DONNELL FINCH Not Available Start: 07-31-2022 End: 07-31-2022 Emergency department [facility] Start: 04-11-2022 End: 04-12-2022 ambulatory LILIANA CARROLL [facility] Start: 04-11-2022 End: 04-11-2022 Subsequent hospital visit by physician Nikki Mcgovern PA-C Work Phone: [facility] Comment on above: Tonsillitis with exu date Start: 12-16-2021 End: 12-16-2021 Emergency department patient visit [facility] Start: 12-16-2021 End: 12-16-2021 Emergency department patient visit Sulema Teran DO Work Phone: [facility] ED Comment on above: Bitten by mouse, ini tial encounter (Primary Dx) Start: 11-29-2021 End: 11-29-2021 ambulatory [facility] Start: 10-28-2021 End: 10-28-2021 Emergency department patient visit [facility] Start: 10-28-2021 End: 10-28-2021 [facility] Work Phone: [facility] Comment on above: Cellulitis of trunk, unspecified site of trunk (Primary Dx) Start: 08-21-2021 End: 08-21-2021 Emergency department patient visit [facility] Start: 08-21-2021 End: 08-21-2021 Emergency department patient visit Penny Ritter MD Work Phone: [facility] ED Comment on above: Acute gastritis with out hemorrhage, unspecified gastritis type (Primary Dx) Start: 11-05-2020 End: 11-05-2020 Emergency department patient visit Rebecca S Gonzalez DO [facility] Comment on above: Dental abscess [...] hospital visit by physician Madhav Ultrasound 3 [facility] Ultrasound Comment on above: Amenorrhea Start: 04-14-2019 End: 04-16-2019 Subsequent hospital visit by physician Olvera Ultrasound Room 1 [facility] Ultrasound Comment on above: Amenorrhea Start: 09-30-2018 End: 09-30-2018 Emergency department patient visit Tip Antunez Work Phone: [facility] ED Comment on above: Pain around [...] abdomen & pelvis w/contrast material Spring Orozco AGRI BUSINESS AGENT - MANUFACTURING CONTROLS ENGINEER Other Phone: Start: 10-28-2021 Blood count complete auto&auto difrntl wbc Spring Orozco AGRI BUSINESS AGENT - MANUFACTURING CONTROLS ENGINEER Other Phone: Start: 10-28-2021 Urine test visual color cmprsn meths Spring Orozco AGRI BUSINESS AGENT - MANUFACTURING CONTROLS ENGINEER Other Phone: Start: 08-21-2021 Assay of lipase [...] Rj Aguilar Work Phone: c section x2 [facility] Weatherista SETH extraction of wisdom teeth [facility] H/O: section Previous c esarean section Mloz 1 Plan of Treatment Date Care Activity Detail Author Start: 12-17-2031 DTaP/Tdap/Td vaccine (3 - Td or Tdap) DTaP/Tdap/Td vaccine (3 - Td or Tdap) [facility] Start: 07-12-2025 Screening for malign ant neoplasm of cervix [facility] Start: 05-27-2024 Screening for malign ant neoplasm of cervix Cervical cancer screen [place], [place] Start: 07-13-2023 Screening for malign ant neoplasm of cervix Pap smear [facility] Start: 03-21-2023 End: 03-21-2023 Patient encounter procedure 03/21/2023 8:00 AM EST Appointment [facility] [place] [address] [facility] [address] [place] [address] [facility] [place] Start: 03-07-2023 Depression Monitoring Depression Mon Satellier [facility] [employer] [facility] Start: 10-12-2022 Influenza vaccination Influenza Vacc ine [facility] Start: 08-29-2022 Depression Monitoring Depression Mon Satellier [facility] [employer] [facility] Start: 06-08-2022 End: 06-08-2022 Patient encounter procedure 06/08/2022 Office Visit Neurology Blas Mike MD [address] [address] [facility] Neurology Start: 02-02-2022 End: 02-02-2022 Patient encounter procedure 02/02/2022 Office Visit Neurology Blas Mike MD [address] [place] [address] [facility] Neurology Start: 01-10-2022 End: 01-10-2022 Patient encounter procedure 01/10/2022 Office Visit Family Medicine Nikki Mcgovern PA-C [address] [place] [address] [facility] Start: 12-18-2021 End: 12-18-2021 Patient encounter procedure 12/18/2021 Office Visit Orthopedic Surgery Alena Chandra MD [address] [place] [address] [facility] Orthopedics and Sports Medicine Start: 10-12-2021 Influenza vaccination Flu vaccine (# 1) [facility] Start: 09-29-2021 End: 09-29-2021 Patient encounter procedure 09/29/2021 Office Visit Neurology Blas Mike MD [address] [place] [address] [facility] Neurology Start: 09-11-2021 Influenza vaccination Flu vaccine (# 1) [facility] Start: 01-20-2021 End: 01-20-2021 Patient encounter procedure 01/20/2021 Office Visit Neurology Blas Mike MD [address] [place] [address] [facility] Neurology Start: 12-01-2020 End: 12-01-2020 Patient encounter procedure 12/01/2020 Office Visit Obstetrics and Gynecology Rj Aguilar, [address] [place] [address] [phone] [facility] Obstetrics and Gynecology Start: 10-12-2020 Influenza vaccination Flu vaccine (# 1) [facility] Work Phone: Start: 09-29-2020 End: 09-29-2020 Patient encounter procedure 09/29/2020 Office Visit Family Medicine Nikki Mcgovern PA-C [address] [place] [address] [phone] [facility] Start: 09-16-2020 End: 09-16-2020 Patient encounter procedure 09/16/2020 Office Visit Neurology Blas Mike MD [address] [place] [address] [phone] [facility] [place] [facility] Start: 02-16-2020 End: 02-16-2020 Procedure visit 02/16/2020 Procedure visit Obstetrics and Gynecology Rj Aguilar, DO [address] [place] [address] [phone] [facility] Obstetrics and Gynecology Start: 12-01-2019 DTaP/Tdap/Td vaccine (2 - Td or Tdap) DTaP/Tdap/Td vaccine (2 - Td or Tdap) [facility] Start: 12-01-2019 DTaP/Tdap/Td vaccine (2 - Td) DTaP/Tdap/Td vaccine (2 - Td) [place] Start: 10-13-2019 Influenza vaccination [place], [place] Start: 06-25-2019 End: 06-25-2019 Routine 06/25/2019 Routine Obstetrics and Gynecology Rj Aguilar DO [address] [place] [address] [phone] [facility] Obstetrics and Gynecology Start: 05-05-2019 End: 05-05-2019 Routine 05/05/2019 Routine Obstetrics and Gynecology Rj Aguilar DO [address] [place] [address] [phone] [facility] Obstetrics and Gynecology Start: 10-12-2018 Influenza vaccination Flu vaccine (# 1) [place] Start: 05-07-2016 Cervical cancer screen Cervical canc er screen [place], [place] Start: 10-20-2008 Screening for malign ant neoplasm of cervix Pap Smear [facility] Start: 10-20-2006 DTaP,Tdap and Td Vaccines (1 - Tdap) DTaP,Tdap and Td Vaccines (1 - Tdap) [facility] Start: 10-20-2005 Adult BMI Screening Adult BMI Screen ing [facility] Start: 10-20-2000 Varicella Vaccine (1 of 2 - 13+ 2-dose series) Varicella Vaccine (1 of 2 - 13+ 2-dose series) [place], [place] Start: 1999 COVID-19 Vaccine (1) COVID-19 Vaccin e (1) [facility] [employer] Phone: Start: 1999 [facility] Start: 1999 Depression Screening Depression Scre ening [facility] Start: 1999 Tobacco Screening Tobacco Screening [facility] Start: 10-20-1993 Pneumococcal 0-64 ye ars Vaccine (1 - PCV) Pneumococcal 0-64 years Vaccine (1 - PCV) [facility] Start: 10-20-1993 Pneumococcal 0-64 ye ars Vaccine (1 of 1 - PPSV23) Pneumococcal 0-64 years Vaccine (1 of 1 - PPSV23) [place] Start: 10-20-1993 Pneumococcal 0-64 ye ars Vaccine (1 of 2 - PPSV23) Pneumococcal 0-64 years Vaccine (1 of 2 - PPSV23) [facility] [employer] Phone: Start: 10-20-1992 COVID-19 Vaccine (1) COVID-19 Vaccin e (1) [facility] Start: 10-20-1988 Varicella vaccine (1 of 2 - 2-dose childhood series) Varicella vaccine (1 of 2 - 2-dose childhood series) [email or web address] Start: 04-19-1988 COVID-19 Vaccine (#1) COVID-19 Vacci ne (#1) [email or web address] Start: 1987 Tobacco Counseling Tobacco Counselin [facility] End: 08-21-2021 CT ABDOMEN PELVIS W IV CONTRAST Additional Contrast? None CT ABDOMEN PELVIS W IV CONTRAST Additional Contrast? None Imaging Routine Once for 1 Occurrences starting 08/21/2021 until 08/21/[address] Phone: Comment on above: Once for 1 Occurrenc es starting 08/21/2021 until 08/21/2021 CT ABDOMEN PELVIS W IV CONTRAST Additional Contrast? None CT ABDOMEN PELVIS W IV CONTRAST Additional Contrast? None Imaging STAT 08/21/2021 2:[address] Phone: End: 10-28-2021 Culture, Anaerobic and Aerobic Culture, Anaerobic and Aerobic Microbiology Routine One Time for 1 Occurrences starting 10/28/2021 until 10/28/[address] Phone: Comment on above: One Time for 1 Occur rences starting 10/28/2021 until 10/28/2021 End: 04-11-2022 Culture, Throat [address] Phone: Comment on above: 1 Occurrences starti ng 04/11/2022 until 04/11/2022 End: 08-12-2020 Holter Monitor 48 Hour Holter Monitor 48 Hour Cardiac Services Routine Heart palpitations 1 Occurrences starting 08/12/2020 until 08/12/2020 [employer] Phone: Comment on above: 1 Occurrences starti ng 08/12/2020 until 08/12/2020 Oxygen therapy [[facility] Data Set] [facility] Comment on above: Daily until disconti nued starting 11/02/2019 Daily until disconti nued starting 02/29/2020 Phase I & II - meter ed glucose Phase I & II - metered glucose Point of Care Testing Routine As Needed until discontinued starting 02/29/2020 [place] Comment on above: As Needed until disc ontinued starting 02/29/2020 End: 11-02-2019 RHOGAM INJECTION ONLY RHOGAM INJECTION ONLY Blood Bank Routine One Time for 1 Occurrences starting 11/02/2019 until 11/02/2019 [place], [place] Comment on above: One Time for 1 Occur rences starting 11/02/2019 until 11/02/2019 Spirometry panel Incentive jayleen metry Respiratory Care Routine Every 2hr while awake until discontinued starting 11/02/2019 [place] Comment on above: Every 2hr while awak e until discontinued starting 11/02/2019 Surgical Pathology Surgical Path ology Lab Routine Release Upon Ordering for 1 Occurrences starting 02/29/2020 [place] Comment on above: Release Upon Orderin g for 1 Occurrences starting 02/29/2020 End: 04-14-2019 US OB Transvaginal US OB Transvaginal Imaging Routine Amenorrhea 1 Occurrences starting 04/14/2019 until 04/14/2019 [place] Comment on above: 1 Occurrences starti ng 04/14/2019 until 04/14/2019 US OB Transvaginal US OB Transva ginal Imaging Routine Amenorrhea 04/14/2019 2:44 PM EST [place] Immunizations Immunization Date Immunization Notes Care Provider Nata storey 12-16-2021 tetanus toxoid, redu jameson diphtheria toxoid, and acellular pertussis vaccine, adsorbed Suelma Teran DO Work Phone: [facility] 11-02-2019 diphtheria, tetanus toxoids and acellular pertussis vaccine, unspecified formulation Rj Aguilar [place], [place] 01-22-2017 tetanus toxoid, redu jameson diphtheria toxoid, and acellular pertussis vaccine, adsorbed Jose F ANN [facility] Comment on above: Reason for Medicatio n: Other (see comment) 11-30-2009 tetanus toxoid, redu jameson diphtheria toxoid, and acellular pertussis vaccine, adsorbed Tip Antunez [facility] 10-04-2000 measles, mumps and rubella virus vaccine Rebecca Gonzalez DO [facility] Work Phone: Payers Date Payer Category Payer Medicaid [employer] [facility] [facility] O [id number] 2023-Present [phone] [address] [place] [address] [id number] 2021 Unknown , [id number] 2017 Unknown [id number] 2016 Unknown [facility] MEDICAID xxxxxxxxxxx 2016-Present [phone] CLAIMS DEPARTMENT [address] [place] [address] xxxxxxxxxxx [id number] 2016 Unknown [id number]. [id number] 1987 Unknown [id number] [id number] 1987 Unknown [id number] [id number] 1987 Unknown [id number] [id number] 1987 Unknown [id number] [id number] 1987 Unknown [id number] [id number] 1987 Unknown [id number] [id number] 1987 Unknown [id number] [id number] 1987 Unknown [id number] [id number] 1987 Unknown [id number] [id number] 1987 Unknown [id number] [id number] 1987 Unknown [id number] [id number] 1987 Unknown [id number] [id number] 1987 Unknown [id number] [id number] 1987 Unknown [id number] [id number] 1987 Unknown [id number] Social History Date Type Detail Facility Start: 09-30-2018 End: 03-18-2023 Tobacco smoking status NHIS Current every day smoker [facility] History of tobacco use Cigarette Smoker [place] Start: 09-30-2018 End: 03-18-2023 Cigarettes smoked current (pack per day) - Reported [place], [place] Start: 09-30-2018 End: 03-18-2023 Alcohol intake No [facility] Start: 1987 Sex Assigned At Not on file [place] Start: 04-07-2019 End: 04-11-2022 Alcohol intake Current non-drinker of alcohol (finding) [place], [place] Start: 02-19-2019 [place] Exposure to SARS-CoV -2 (event) Unable to assess [place] Start: 11-03-2019 End: 08-29-2021 Tobacco use and exposure Never used [place], [place] Start: 08-11-2021 End: 04-11-2022 Exposure to SARS-CoV-2 (event) Not sure [place] Start: 08-04-2020 End: 04-09-2022 History 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 [employer] Phone: Start: 08-04-2020 End: 04-09-2022 History 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 [employer] Phone: Start: 1987 Sex Assigned At Female [facility] Start: 10-18-2021 End: 12-16-2021 Exposure to SARS-CoV-2 (event) Yes [facility] Start: 04-09-2022 History SDOH Transpo rt Non-Med 2 [facility] [employer] Phone: Start: 10-13-2017 Tobacco smoking status Heavy t obacco smoker (finding) [facility] Medical Equipment Procedure Code Equipment Code Equipment Origin al Text Equipment Identifier Dates fluorescein ophthalmic strip 1 mg [id number] Start: 09-30-2018 End: 09-30-2018 Clinical Notes 08-21-2021 to 01-11-2023 InstructionsAttachments Note Date & Type Note Facility 01-11-2023 Evaluation + Plan note Diagnostic Tests PendingHIV Screen 4th Generation wRfx 01/11/23Hepatitis B Surface Antigen 01/11/23RPR with Conf Rfx 01/11/23Rubella Antibody IgG 01/11/23HCV Antibody RFX to Quant PCR 01/11/23Urine Culture 01/11/23 [facility] 08-21-2021 Hospital Discharg e instructions Penny Ritter MD - 08/21/2021 Return to the Emergency Department immediately if you develop worsening symptoms, or you have any other concerns. Please follow up with your family doctor in 1-2 days. The following attachments cannot be sent through Care Everywhere.Gastritis (Mozambican)documented in this encounter [employer] [address] Phone: Evaluation note Diagnosis Heart palpitations Palpitations documented in this encounter [employer] Phone: evaluation note* Diagnosis Dental abscess- Primary Periapical abscess without sinus documented in this encounter [employer] Phone: evaluation note* Diagnosis Acute gastritis without hemorrhage, unspecified gastritis type- Primary documented in this encounter [facility] [employer] Phone: evaluation note* Diagnosis Cellulitis of trunk, unspecified site of trunk- Primary documented in this encounter [facility] [employer] Phone: evalpviczr note* Diagnosis Bitten by mouse, initial encounter- Primary documented in this encounter [facility] [employer] Phone: evaluation note* Diagnosis Tonsillitis with exudate Acute tonsillitis documented in this encounter [facility] [employer] Phone: Hospital course Narrative No data available for this section [facility]* Attachments The following attachments cannot be sent through Care Everywhere. * Tooth: Abscessed (Mozambican) [facility] [employer] Phone: Hospital Discharge instructions* Attachments The following attachments cannot be sent through Care Everywhere. * Cellulitis (Mozambican) [facility] [employer] Phone: Hospital Discharge instructions* Attachments The following attachments cannot be sent through Care Everywhere. 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 Advance Directives and Living Will Power of Skin Toggler Documents on File Type Date Recorded 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 Advance Directives and Living Will Power of Skin Toggler Documents on File Type Date Recorded 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 ACP-Advance Directive ACP-Power of Skin Toggler Latest Code Status on File Code Status Date Activated Date Inactivated Comments Full Code 11/02/2019 12:26 PM Full Code 11/02/2019 7:35 AM 11/02/2019 12:26 PM Latest Code Status on File Code Status Date Activated Date Inactivated Comments Full Code 11/02/2019 12:26 PM 11/04/2019 3:22 PM Documents on File Type Date Recorded 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 ACP-Advance Directive ACP-Power of Skin Toggler Latest Code Status on File Code Status [...] * LEEP (LOOP ELECTROSURGICAL EXCISION PROCEDURE): POST-OP (VIETNAMESE) * Coronavirus Disease (COVID-19): General Info (Mozambican) documented in this encounter Assessments Diagnosis Pain [...] Rj Aguilar, DO [address] [place] [address] Status Reason Specialty Diagnoses / Procedures Referre d By Contact Referred To Contact [facility] Diagnoses Amenorrhea Procedures US OB Transvaginal Rj Aguilar, DO [address] [place] [address] Status Reason Specialty Diagnoses / Procedures Referre d By Contact Referred To Contact [facility] Diagnoses Amenorrhea Procedures US OB TRANSVAGINAL Rj Aguilar, DO [address] [place] [address] Status Reason Specialty Diagnoses / Procedures Referred By Contact Referred To Contact Not Required - [facility] Diagnoses Amenorrhea Procedures US OB 14 Plus Weeks Single or First Gestation HC US OB GREATER THAN 14 WEEKS SINGLE FETUS Rj Aguilar, DO [address] [place] [address] Status Reason Specialty Diagnoses / Procedures Referre d By Contact Referred To Contact Closed Diagnoses Heart palpitations Procedures Holter Monitor 48 Hour Nikki Mcgovern PA-C [address] [place] [address] History of Present Illness * Rj Aguilar, [...] 50 mL IVPB (duplex), 2 g, Intravenous, Aeronautical Project Engineer to OR, Rj Diaz DO meperidine (DEMEROL) [...] Once PRN, Junior Fuentes MD 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 Past Surgical History: Past Surgical History: Procedure Laterality Date SECTION 2013 SECTION N/A 11/02/2019 SECTION performed by Rj Aguilar DO at [facility] L&D OR COLONOSCOPY 09/03/14 w/bx Social History: [...] section and content) DATE CREATED AUTHOR 08/21/2017 [employer] DATE CREATED AUTHOR AUTHOR'S ORGANIZ ATION 10/01/2018 [facility] DATE CREATED AUTHOR AUTHOR'S ORGANIZ ATION 09/01/2021 [facility]ical Center DATE CREATED AUTHOR AUTHOR'S ORGANIZ ATION [facility]21 [facility] DATE CREATED AUTHOR AUTHOR'S ORGANIZ ATION 07/31/2022 [facility] DATE CREATED AUTHOR AUTHOR'S ORGANIZ ATION 01/31/2023 Gallego Osceola [facility] ical Center DATE CREATED AUTHOR AUTHOR'S ORGANIZ ATION 03/25/2023 [facility] DATE CREATED AUTHOR AUTHOR'S ORGANIZ ATION 04/02/2023 [facility] d[facility] Specialists EPIC Reason for Visit (unrecogniz [...] Rj Aguilar DO [address] [place] [address] Status Reason Specialty Diagnoses / Procedures Referred By Contact Referred To Contact Not Required - [facility] Diagnoses Amenorrhea Procedures US OB 14 Plus Weeks Single or First Gestation HC US OB GREATER THAN 14 WEEKS SINGLE FETUS Rj Aguilar, DO [address] [place] [address] Reason Comments Other Scheduled C/S Status Reason Specialty Diagnoses / Procedures Referre d By Contact Referred To Contact Diagnoses Status post repeat low transverse section repeat Procedures OK DELIVERY ONLY SECTION Rj Aguilar, DO [address] [place] [address] [facility] Status Reason Specialty Diagnoses / Procedures Re ferred By Contact Referred To Contact Diagnoses HGSIL Pap smear of anus HGSIL Procedures OK COLPOSCOPY,ENTIRE VAGINA LOOP ELECTROSURGICAL EXCISION PROCEDURE COLPOSCOPY, ECC (PAT ON ADMIT) RAPID COVID Rj Aguilar, DO [address] [place] [address] [facility] Status Reason Specialty Diagnoses / Procedures Referre d By Contact Referred To Contact Closed Diagnoses Heart palpitations Procedures Holter Monitor 48 Hour Nikki Mcgovern PA-C [address] [place] [address] Reason Comments Dental Pain right upper gum [...] 28 capsule 0 10/28/2021 11/04/2021 nystatin (MYCOSTATIN) 387430 UNIT/GM powder Apply topically 2 times daily [...] Care Teams (unrecognized sec tion and content) Magnetic Prospector Relationship Specialty Start Date End Date Nikki Mcgovern PA-C PCP - General 03/29/15 Magnetic Prospector Relationship Specialty Start Date End Date Nikki Mcgovern PA-C PCP General 03/29/15 Magnetic Prospector Relationship Specialty Start Date End Date Nikki Mcgovern PA-C [facility] 03/29/15 [employer]or Relationship Specialty Start Date End Date Nikki Mcgovern PA-C [facility] 03/29/15 FOR RECORDS PERTAINING TO PATIENTS [...] BE BASED ON THE PRIMARY CLINICAL RECORDS. [facility] [employer], [facility]. provides no warranty or guarantee of the accuracy or completeness of information in this document.
[2023-04-20 08:49] VITALS: BP 110/61; PULSE 102
== END 2023-04-20 09:20 | disposition home or self-care (01) ==
LOC: FBCO 07:34 → FBC 08:43
PROVIDERS: Visit Provider Obstetrics & Gynecology
DX: O26.849 Uterine size-date discrepancy, unspecified trimester (principal); O09.529 Supervision of elderly multigravida, unspecified trimester
CPT/HCPCS: 59025

== ENCOUNTER 2023-04-22 05:24 | Inpatient (IN) | payer OTHER, SELFPAY ==
[2023-04-22] VITALS (32 sets, daily range): BP systolic 91–123; BP diastolic 53–84; PULSE 60–92; RESP 9–21; TEMP 36.2–36.8; O2SAT 96–100
--- OUTSIDE RECORDS SUMMARY | 2023-04-22 05:29 | XMS_ITS | CCD ---
Author Name Unknown Address [address] [place] [address] Organization [facility] Care Team Providers [facility] Name Role Phone Nikki Mcgovern Primary Care [...] MARTHA-NIKKI DEE Primary Care Unavailabl e SETH, Jsoe F R Attending Unavailable Unavailable Primary Care Provider Unavailabl e SETH, JOSE F R Referring Unavailable DONNELL FINCH Attending Unavailable JEANIE ANNY Attending Unavailable JOSE F ANN Attending Unavailable JOSE F ANN Attending Unavailable Allergies Allergy Classification Reported Allergen(s) Allergy Type Date of Onset Reaction(s) Facility (4 sources) Acetaminophen / oxyCODONE; Translations: [OXYCODONE-ACETAM INOPHEN] Drug Allergy 2 Nausea And Vomiting, Headache [facility] Phone: (4 sources) traMADol; Translations: [TRAMADOL] Drug Allergy 2 [facility] Phone: (1 source) No Known Medication Allergies; Translations: [No Known Medication Allergies] Propensity to adverse reactions (disorder) [facility] Repository Medications Current Medications Medication Drug [...] Pain - Moderate, 30 tab(s), Refill(s) 0, [facility] Start Date: 01/22/17 Status: Ordered [...] BID, # 60 cap(s), Refills(s) 0, Pharmacy: [facility] Start Date: 01/22/17 Status: Ordered Ethinyl Estradiol [...] Refill(s) 5, Start 3 weeks after delivery, [facility] Start Date: 01/22/17 Status: [...] Mild, # 40 tab(s), Refills(s) 0, Pharmacy: [facility] Start Date: 01/22/17 Status: [...] sources) Polyene Antifungal Start: 10-28-2021 nystatin (MYCOSTATIN) 610032 UNIT/GM powder Apply topically 2 times daily [...] Give after delivery of placenta. Prenat w/o H-GcCwn-VHP-FA-DHA (PRENAISSANCE PLUS) 28-1-250 MG CAPS (4 sources) Start: 06-03-2019 take 1 tablet by mouth once daily Prenat w/o T-SlNbw-JYX-FA-DHA (PRENAISSANCE PLUS) 28-1-250 MG CAPS Take 1 tablet by mouth daily 30 capsule 06/03/2019 Suspended Start: 06-03-2019 take 1 tablet by mario th once daily Prenat w/o G-KvYya-JNL-FA-DHA (PRENAISSANCE PLUS) 28-1-250 MG CAPS Take 1 [...] tablet 3 04/09/2017 09/30/2018 Discontinued (LIST CLEANUP) Hx-[id number]-AL-Hicype (PRENATE AM PO) (1 source) End: 09-30-2018 Py-Z3-G85B50-ZY-Nnfjrz (PRENATE AM PO) Take by mouth 0 09/30/2018 Discontinued (LIST CLEANUP) Multivitamins with Folic Acid 1 mg oral tablet (3 sources) Start: 07-26-2016 Multivitamins with Folic Acid 1 mg oral tablet 1 tab(s), Oral, Daily, 100 tab(s), Refill(s) 0, [facility] Start Date: 07/26/16 Status: [...] Extremities Normal Diaphragm Normal ACI Normal Normal [facility] CHEMISTRYOrdered By: SYSTEM SYSTEM on 01-29-2023 Glucose [Mass/Vol] 157 mg/dL High 55 - 140 mg/dL Remisol Chem Consent for Treatmenton 01-11 Consent for Treatment [id number] .00TIFF Normal [facility] Consent for Treatment [id number] .00TIFF Normal [facility] Gest Scr Glu 1 Hron 01-30-20 23 Glucose [Mass/Vol] 157 mg/dL High 55-140 [facility] Comment on above: Performed By: #### 2 [id number], 85904957, 355673645, 9900591293, 411773853, 286097962, 9216738, 8071874, 7251266 #### [facility] [address] [place] [address] Glucose 1h post 50g loadon 04-01-2022 Glucose, 1 hr PP 50GM dose 157 [employer] [facility] Physician Orderon 01-29-2023 Physician Order [id number]# 1.00TIFF Normal [facility] Physician Orderon 01-28-2023 Physician Order [id number]#1 .00TIFF Normal [facility] C Urineon 01-13-2023 Bacteria identified Cx [...] Locations R1: This test was performed at: [facility], [address] [place] [address], [address] , , [facility] Comment on above: Performed By: #### 2 [id number], 21941563, 801851755, 2257721459, 910091329, 972542742, 5329357, 1035682, 7381724 #### [facility] [address] [place] [address] .Interpretation:on HCV Ab IA Ql Comment Invalid Interpretation Code [facility] Comment on above: Result Comment: Not infected with HCV unless early or acute infection is suspected (which may be delayed in an immunocompromised individual), or other evidence exists to indicate HCV infection. Performed at: [facility] [id number] [place], [place] [id number] PhD Mariama Zaman Performed By: #### 2 [id number], 34962774, 004786552, 9992391388, 928140628, 108047610, 1863194, 6621139, 0273318 #### [facility] [address] [place] [address] HCV Antibody RFX to Quant PC Johnny 01-12-2023 HCV IgG IA Ql Non-Reactive Invalid Interpretation Code Non Reactive [facility] Comment on above: Result Comment: Perf ormed at: [address] [id number] [id number] PhD Mariama Zaman Performed By: #### 2 [id number], 21236814, 161959512, 7456419368, 620546186, 457960654, 8264932, 8412978, 7250019 #### [facility] [address] [place] [address] HIV Screen 4th Generation wR fxon 01-12-2023 HIV 1+2 Ab+HIV1 p24 Ag IA Ql Non-Reactive Invalid Interpretation Code Non Reactive [facility] Comment on above: Result Comment: HIV Negative HIV-1/HIV-2 antibodies and HIV-1 p24 antigen were NOT detected. There is no laboratory evidence of HIV infection. Performed at: [address] [id number] [id number] PhD Mariama Zaman Performed By: #### 2 [id number], 72022418, 495725807, 9083619141, 656071009, 197747515, 2549046, 4560706, 8633910 #### [facility] [address] [place] [address] Hep Bs Agon 01-12-2023 HBV surface Ag IA Ql Negative Invalid Interpretation Code Negative [facility] Comment on above: Result Comment: Perf ormed at: [address] [id number] PhD Mariama Zaman Performed By: #### 2 401449320, 36522907, 247180041, 5419610622, 427326630, 588686583, 0631997, 3923670, 1215123 #### [facility] [address] [place] [address] RPR with Conf Rfxon 01-13-20 23 Reagin Ab RPR Ql (S) Non-Reactive Invalid Interpretation Code Non Reactive [facility] Comment on above: Result Comment: Perf ormed at: [address] [id number] PhD Mariama Zaman Performed By: #### 2 660778162, 34232338, 788642416, 7850415332, 407479045, 433930333, 7638952, 8027280, 6771984 #### [facility] [address] [place] [address] Rubella IgGon 01-12-2023 Rubella virus IgG Qn (S) 5.68 [IU]/mL Invalid Interpretation Code Immune >0.99 [facility] Comment on above: Result Comment: Non- immune <0.90 Equivocal 0.90 - 0.99 Immune >0.99 Performed at: [address] [id number] [id number] PhD Mariama Zaman Performed By: #### 2 047984179, 70027151, 740687580, 8076037678, 783133684, 374286625, 3464151, 9501910, 3594158 #### [facility] [address] [place] [address] ABO/Rhon 01-11-2023 ABO/Rh Positive Invalid Interpretation Code [facility] Comment on above: Performed By: #### 2 [id number], 00378317, 184137778, 9809501086, 907624147, 950339190, 9048363, 1285366, 1906673 #### [facility] [address] [place] [address] ABSCon 01-11-2023 ABSC Gel Interp Negative Normal [facility] Comment on above: Performed By: #### 2 183386045, 78319587, 415931388, 3693094935, 379994614, 712831278, 2225525, 6127727, 6742072 #### [facility] [address] [place] [address] BLOOD BANKOrdered By: Dylan Lemons on 01-11-2023 ABO/Rh Interp Positive Invalid Interpretation Code FT BB Subsection ABSC Gel Interp Negative (01/11/23 10:00 AM) Normal [facility] BB Subsection CBC w/IndicesOrdered By: López Jorgensen on 01-11-2023 Erythrocyte distribution width (RBC) [Ratio] 13.4 % Normal 10.9-14.2 [facility] Comment on above: Performed By: #### 2 582482772, 77691861, 323511698, 2958770154, 895087344, 813067254, 8316274, 1937554, 0306669 #### [facility] [address] [place] [address] Hematocrit (Bld) [Volume fraction] 34.4 % [facility] Comment on above: Performed By: #### 2 279363349, 19738914, 111377518, 5197794221, 093160789, 653069490, 1014123, 5754177, 5585526 #### [facility] [address] [place] [address] Hemoglobin (Bld) [Mass/Vol] 11.7 g/dL [facility] Comment on above: Performed By: #### 2 388947023, 44903564, 179559655, 3019401155, 654492945, 426892956, 2475340, 8313376, 7658923 #### [facility] [address] [place] [address] MCH (RBC) [Entitic mass] 31.7 pg Normal 27.0-34.0 [facility] Comment on above: Performed By: #### 2 103764106, 65225699, 750105716, 7756350118, 220138554, 275298025, 8942147, 9443425, 2774359 #### [facility] [address] [place] [address] MCHC (RBC) [Mass/Vol] 33.9 g/dL Normal 31.4-36.0 [facility] Comment on above: Performed By: #### 2 786019929, 97226608, 141313847, 0876595108, 353127394, 607124081, 6448469, 6782291, 4339424 #### [facility] [address] [place] [address] MCV (RBC) [Entitic vol] 93.3 fL Normal 80.0-100.0 [facility] Comment on above: Performed By: #### 2 626485081, 24287001, 513140763, 8337176370, 154186874, 110177129, 4289350, 9463058, 5932643 #### [facility] [address] [place] [address] Platelet mean volume (Bld) [Entitic vol] 8.0 fL Normal 6.4-10.8 [facility] Comment on above: Performed By: #### 2 756706498, 47229795, 834244726, 9176524380, 798033975, 632047786, 3214583, 2923758, 2139795 #### [facility] [address] [place] [address] Platelets (Bld) [#/Vol] 171.0 E9/L Normal 150.0-500.0 [facility] Comment on above: Performed By: #### 2 642531035, 43049447, 707241568, 4682134365, 683425894, 155136372, 9468069, 4633304, 7012920 #### [facility] [address] [place] [address] RBC (Bld) [#/Vol] 3.7 E12/L Low 4.3-5.9 [facility] Comment on above: Performed By: #### 2 772857238, 21077732, 628487695, 8545213450, 823991703, 796911577, 7159575, 3362681, 9635206 #### [facility] [address] [place] [address] WBC corrected for nucl RBC Auto (Bld) [#/Vol] 11.7 E9/L High 4.0-11.0 [facility] Comment on above: Performed By: #### 2 414162115, 49908977, 737783496, 7117397213, 460125327, 072123174, 4669088, 6084246, 4440276 #### [facility] [address] [place] [address] CBC without diffon Platelets (Bld) [#/Vol] 171 10*3/uL [facility] Consent for Treatmenton Consent for Treatment [id number] .00TIFF Normal [facility] HIV 1&2 AB/AG Screen (P24 AG )on 01-11-2023 HIV 1&2 AB/AG Non-Reactive [facility] Hepatitis B surface antigeno n 01-11-2023 Hepatitis B Surface Antigen Negative [facility] Hepatitis C(HCV) Ab w/ Refle x to PCRon 01-11-2023 HCV Ab Ql (S) Non-Reactive [facility] [id number] By: Liliana Dumont on 01-11-2023 HbA1c (Bld) [Mass fraction] 4.9 % Normal <=5.9 [facility] Comment on above: Performed By: #### 2 [id number], 43895239, 065704875, 5575928951, 848019213, 182791100, 3215306, 4470021, 0279248 #### [facility] [address] [place] [address] No Panel Informationon 01-11 [facility] Physician Orderon 01-11-2023 Physician Order [id number] .00TIFF Normal [facility] Rubella IGG immune statuson 01-11-2023 Rubella immune IgG 5.68 [facility] Syphilis Total(Unknown Syphi lis Status)on 01-11-2023 Syphilis Non-Reactive [facility] TSHon 01-11-2023 Thyroid Stimulating (3Rd Generation) Hormone/ Tsh 1.30 [facility] TSHOrdered By: SYSTEM SYSTEM on 01-11-2023 TSH Qn 1.30 m[IU]/L Normal 0.34-5.60 [facility] Remisol Comment on above: Performed By: #### 2 [id number], 76356346, 921021679, 4459868479, 099118944, 001578404, 5426511, 5240175, 3679860 #### [facility] [address] [place] [address] Type and screenon 01-11-2023 Abo/Rh(D) Positive [employer] System Basic Metabolic Panelon 07-13 Calcium [Mass/Vol] 9.1 mg/dL Normal 8.5-9.9 [facility] Comment on above: Performed By: #### C BCWD #### [facility] [address] [place] [address] Chloride [Moles/Vol] 105 mmol/L Normal 95-107 [facility] Comment on above: Performed By: #### C BCWD #### [facility] [address] [place] [address] CO2 [Moles/Vol] 22 mmol/L Normal 20-31 [facility] Comment on above: Performed By: #### C BCWD #### [facility] [address] [place] [address] Creatinine [Mass/Vol] 0.59 mg/dL Normal 0.50-0.90 [facility] Comment on above: Performed By: #### C BCWD #### [facility] [address] [place] [address] GFR >60.0 Normal >60 [facility] Comment on above: Result [...] Performed By: #### C BCWD #### [facility] [address] [place] [address] Glucose [Mass/Vol] 110 mg/dL Critically high 70-99 M [facility] Comment on above: Performed By: #### C BCWD #### [facility] [address] [place] [address] Potassium [Moles/Vol] 4.0 mmol/L Normal 3.4-4.9 [facility] Comment on above: Performed By: #### C BCWD #### [facility] [address] [place] [address] Sodium [Moles/Vol] 139 mmol/L Normal 135-144 [facility] Comment on above: Performed By: #### C BCWD #### [facility] [address] [place] [address] Urea nitrogen [Mass/Vol] 12 mg/dL Normal 6-20 [facility] Comment on above: Performed By: #### C BCWD #### [facility] [address] [place] [address] Anion gap [Moles/Vol] 12 mmol/L Normal 9-15 [facility] Comment on above: Performed By: #### C BCWD #### [facility] [address] [place] [address] CBC With Platelet and Differ entialon 07-31-2022 Abs Imm Granulocytes 0.0 K/uL Normal [facility] Comment on above: Performed By: #### C BCWD #### [facility] [address] [place] [address] Basophils (Bld) [#/Vol] 0.0 10*3/uL Normal 0.0-0.1 [facility] Comment on above: Performed By: #### C BCWD #### [facility] [address] [place] [address] Basophils/100 WBC (Bld) 0.4 % Normal 0.1-1.2 [facility] Comment on above: Performed By: #### C BCWD #### [facility] [address] [place] [address] Eosinophils (Bld) [#/Vol] 0.2 10*3/uL Normal 0.0-0.4 [facility] Comment on above: Performed By: #### C BCWD #### [facility] [address] [place] [address] Eosinophils/100 WBC (Bld) 2.6 % Normal 0.7-5.8 [facility] Comment on above: Performed By: #### C BCWD #### [facility] [address] [place] [address] Erythrocyte distribution width (RBC) [Ratio] 12.6 % Normal 11.7-14.4 [facility] Comment on above: Performed By: #### C BCWD #### [facility] [address] [place] [address] Hematocrit (Bld) [Volume fraction] 39.6 % Normal 37.0-47.0 [facility] Comment on above: Performed By: #### C BCWD #### [facility] [address] [place] [address] Hemoglobin (Bld) [Mass/Vol] 13.5 g/dL Normal 11.2-15.7 [facility] Comment on above: Performed By: #### C BCWD #### [facility] [address] [place] [address] Imm Granulocytes 0.3 % Normal [facility] Comment on above: Performed By: #### C BCWD #### [facility] [address] [place] [address] Lymphocytes (Bld) [#/Vol] 1.8 10*3/uL Normal 1.2-3.7 [facility] Comment on above: Performed By: #### C BCWD #### [facility] [address] [place] [address] Lymphocytes/100 WBC (Bld) 25.0 % Normal [facility] Comment on above: Performed By: #### C BCWD #### [facility] [address] [place] [address] MCH (RBC) [Entitic mass] 31.9 pg Normal 25.6-32.2 [facility] Comment on above: Performed By: #### C BCWD #### [facility] [address] [place] [address] MCHC 34.1 % Normal 32.2-35.5 [facility] Comment on above: Performed By: #### C BCWD #### [facility] [address] [place] [address] MCV (RBC) [Entitic vol] 93.6 fL Normal 79.4-94.8 [facility] Comment on above: Performed By: #### C BCWD #### [facility] [address] [place] [address] Monocytes (Bld) [#/Vol] 0.4 10*3/uL Normal 0.2-0.9 [facility] Comment on above: Performed By: #### C BCWD #### [facility] [address] [place] [address] Monocytes/100 WBC (Bld) 5.7 % Normal 4.7-12.5 [facility] Comment on above: Performed By: #### C BCWD #### [facility] [address] [place] [address] Neutrophils (Bld) [#/Vol] 4.9 10*3/uL Normal 1.6-6.1 [facility] Comment on above: Performed By: #### C BCWD #### [facility] [address] [place] [address] Neutrophils/100 WBC (Bld) 66.0 % Normal 34.0-71.1 [facility] Comment on above: Performed By: #### C BCWD #### [facility] [address] [place] [address] Platelets (Bld) [#/Vol] 193 10*3/uL Normal 182-369 [facility] Comment on above: Performed By: #### C BCWD #### [facility] [address] [place] [address] RBC (Bld) [#/Vol] 4.23 10*6/uL Normal 3.93-5.22 [facility] Comment on above: Performed By: #### C BCWD #### [facility] [address] [place] [address] WBC (Bld) [#/Vol] 7.4 10*3/uL Normal 4.0-10.0 [facility] Comment on above: Performed By: #### C BCWD #### [facility] [address] [place] [address] UR HCG Qualitativeon 023 Beta HCG ( test) Ql (U) Negative Normal Detects HC [facility] Comment on above: Performed By: #### C BCWD #### [facility] [address] [place] [address] Urinalysis, reflex to cultur minoo 07-31-2022 Urine Reflexed to Culture Not Indicated Normal [facility] Comment on above: Performed By: #### U AR #### [facility] [address] [place] [address] Bilirubin Ql (U) Negative Normal Negative [facility] Comment on above: Performed By: #### U AR #### [facility] [address] [place] [address] Clarity (U) Clear Normal Clear [facility] Comment on above: Performed By: #### U AR #### [facility] [address] [place] [address] Color (U) Yellow Normal Straw/Gordon [facility] Comment on above: Performed By: #### U AR #### [facility] [address] [place] [address] Glucose Ql (U) Negative Normal Negative [facility] Comment on above: Performed By: #### U AR #### [facility] [address] [place] [address] Hemoglobin Ql (U) Large Normal Negative [facility] Comment on above: Performed By: #### U AR #### [facility] [address] [place] [address] Ketones Ql (U) Negative Normal Negative [facility] Comment on above: Performed By: #### U AR #### [facility] [address] [place] [address] Leukocyte esterase Test strip Ql (U) Negative Normal Negative [facility] Comment on above: Performed By: #### U AR #### [facility] [address] [place] [address] Nitrite Ql (U) Negative Normal Negative [facility] Comment on above: Performed By: #### U AR #### [facility] [address] [place] [address] pH (U) 5.5 [pH] Normal 5.0-9.0 [facility] Comment on above: Performed By: #### U AR #### [facility] [address] [place] [address] Protein Ql (U) Negative Normal Negative [facility] Comment on above: Performed By: #### U AR #### [facility] [address] [place] [address] Specific gravity (U) [Rel density] 1.015 Normal 1.005-1.03 [facility] Comment on above: Performed By: #### U AR #### [facility] [address] [place] [address] Urobilinogen Qn (U) 0.2 {Ginger'U}/dL Normal < 2.0 [facility] Comment on above: Performed By: #### U AR #### [facility] [address] [place] [address] Urine Microscopicon 08-01-19 23 Epithelial cells LM Ql (Urine sed) 3-5 Normal [facility] Comment on above: Performed By: #### U KAREEM #### [facility] [address] [place] [address] Urine Bacteria FEW Abnormal Negative [facility] Comment on above: Performed By: #### U KAREEM #### [facility] [address] [place] [address] Urine RBC 5-10 Abnormal 0-2 [facility] Comment on above: Performed By: #### U KAREEM #### [facility] [address] [place] [address] Urine WBC 0-2 Normal 0-5 [facility] Comment on above: Performed By: #### U KAREEM #### [facility] [address] [place] [address] Culture, Throaton 04-11-2022 Culture, Throat ORDER#: [id number] ORDERED BY: LILIANA CARROLL SOURCE: Throat Throat COLLECTED: 04/11/22 17:53 ANTIBIOTICS AT [facility]LAY[facility].: RECEIVED : 04/11/22 21:00 Culture, Throat FINAL 04/14/22 10:27 Cult,Throat: Oral to, negative for Group A Strep and other beta Cult,Throat: hemolytic streptococci Performed at [address] [address] ([phone] Normal [facility] Comment on above: Performed By: #### C BCWD #### [facility] [address] [place] [address] XR SHOULDER LEFT (MIN 2 VIEW S)on [...] Riojas MD 11/29/[address] [facility] Bacterial susceptibility hager el by Christin 10-28-2021 Bacterial susceptibility panel KAREEM ([facility]) ORDER#: [id number] ORDERED BY: SPRING OROZCO SOURCE: Incision COLLECTED: 10/28/21 16:45 ANTIBIOTICS AT BLAYNE.: RECEIVED : 10/28/21 22:09 Culture, Wound Aerobic, Anaerobic FINAL 11/03/21 07:50 Direct Exam: NO NEUTROPHILS SEEN Direct Exam: NO BACTERIA SEEN Cult,Aerobe/Anaerobe: Mixed skin to Cult,Aerobe/Anaerobe: No anaerobic organisms isolated at 5 days. Performed at [address] [address] Acinetobacter species LIGHT GROWTH Acinetobacter baumannii LIGHT GROWTH Acineto sp. A. baumannii ANTIBIOTICS KAREEM Interp KAREEM Interp Ampicillin/Sulbactam <=2 S >=32 R Ceftriaxone 16 I 16 I Ciprofloxacin <=0.25 S <=0.25 S Gentamicin <=1 S <=1 S Tobramycin <=1 S <=1 S S=SUSCEPTIBLE I=INTERMEDIATE R=RESISTANT Normal [facility] Comment on above: Performed By: #### 5 0545-3 #### [facility] [address] [place] [address] Bacterial susceptibility panel KAREEM (Isol) ORDER#: [id number] ORDERED BY: SPRING OROZCO SOURCE: Incision COLLECTED: 10/28/21 16:45 ANTIBIOTICS AT [facility].: RECEIVED : 10/28/21 22:09 Culture, Wound Aerobic, Anaerobic PRELIM 11/03/21 07:15 Direct Exam: NO NEUTROPHILS SEEN Direct Exam: NO BACTERIA SEEN Cult,Aerobe/Anaerobe: Mixed skin to Cult,Aerobe/Anaerobe: No anaerobic organisms isolated at 5 days. Performed at [facility] [address] [facility], [place] [id number] ([phone] Acinetobacter species LIGHT GROWTH Acineto sp. ANTIBIOTICS KAREEM Interp Ampicillin/Sulbactam <=2 S Ceftriaxone 16 I Ciprofloxacin <=0.25 S Gentamicin <=1 S Tobramycin <=1 S S=SUSCEPTIBLE I=INTERMEDIATE R=RESISTANT Normal [facility] Comment on above: Performed By: #### C BCWD #### [facility] [address] [place] [address] CBC With Platelet and Differ entialon 10-28-2021 Abs Imm Granulocytes 0.0 K/uL Normal [facility] Comment on above: Performed By: #### C BCWD #### [facility] [address] [place] [address] Basophils (Bld) [#/Vol] 0.0 10*3/uL Normal 0.0-0.1 [facility] Comment on above: Performed By: #### C BCWD #### [facility] [address] [place] [address] Basophils/100 WBC (Bld) 0.1 % Normal 0.1-1.2 [facility] Comment on above: Performed By: #### C BCWD #### [facility] [address] [facility] [place] [address] Eosinophils (Bld) [#/Vol] 0.3 10*3/uL Normal 0.0-0.4 [facility] Comment on above: Performed By: #### C BCWD #### [facility] [address] [place] [address] Eosinophils/100 WBC (Bld) 3.1 % Normal 0.7-5.8 [facility] Comment on above: Performed By: #### C BCWD #### [facility] [address] [place] [address] Erythrocyte distribution width (RBC) [Ratio] 12.8 % Normal 11.7-14.4 [facility] Comment on above: Performed By: #### C BCWD #### [facility] [address] [place] [address] Hematocrit (Bld) [Volume fraction] 40.9 % Normal 37.0-47.0 [facility] Comment on above: Performed By: #### C BCWD #### [facility] [address] [place] [address] Hemoglobin (Bld) [Mass/Vol] 13.6 g/dL Normal 11.2-15.7 [facility] Comment on above: Performed By: #### C BCWD #### [facility] [address] [place] [address] Imm Granulocytes 0.2 % Normal [facility] Comment on above: Performed By: #### C BCWD #### [facility] [address] [place] [address] Lymphocytes (Bld) [#/Vol] 1.8 10*3/uL Normal 1.2-3.7 [facility] Comment on above: Performed By: #### C BCWD #### [facility] [address] [place] [address] Lymphocytes/100 WBC (Bld) 16.5 % Normal [facility] Comment on above: Performed By: #### C BCWD #### [facility] [address] [place] [address] MCH (RBC) [Entitic mass] 31.1 pg Normal 25.6-32.2 [facility] Comment on above: Performed By: #### C BCWD #### [facility] [address] [place] [address] MCHC 33.3 % Normal 32.2-35.5 [facility] Comment on above: Performed By: #### C BCWD #### [facility] [address] [place] [address] MCV (RBC) [Entitic vol] 93.4 fL Normal 79.4-94.8 [facility] Comment on above: Performed By: #### C BCWD #### [facility] [address] [place] [address] Monocytes (Bld) [#/Vol] 0.6 10*3/uL Normal 0.2-0.9 [facility] Comment on above: Performed By: #### C BCWD #### [facility] [address] [place] [address] Monocytes/100 WBC (Bld) 5.2 % Normal 4.7-12.5 [facility] Comment on above: Performed By: #### C BCWD #### [facility] [address] [place] [address] Neutrophils (Bld) [#/Vol] 7.9 10*3/uL Critically high 1.6-6.1 [facility] Comment on above: Performed By: #### C BCWD #### [facility] [address] [place] [address] Neutrophils/100 WBC (Bld) 74.9 % Critically high 34.0-71.1 [facility] Comment on above: Performed By: #### C BCWD #### [facility] [address] [place] [address] Platelets (Bld) [#/Vol] 192 10*3/uL Normal 182-369 [facility] Comment on above: Performed By: #### C BCWD #### [facility] [address] [place] [address] RBC (Bld) [#/Vol] 4.38 10*6/uL Normal 3.93-5.22 [facility] Comment on above: Performed By: #### C BCWD #### [facility] [address] [place] [address] WBC (Bld) [#/Vol] 10.6 10*3/uL Critically high 4.0-10.0 [facility] Comment on above: Performed By: #### C BCWD #### [facility] [address] [place] [address] CBC with Auto Differentialon 10-28-2021 Basophils (Bld) [#/Vol] 0.0 10*3/uL 0 - 0.1 K/uL [facility] Basophils/100 WBC (Bld) 0.1 % 0.1 - 1.2 % [facility] Eosinophils (Bld) [#/Vol] 0.3 10*3/uL 0 - 0.4 K/uL [facility] Eosinophils/100 WBC (Bld) 3.1 % 0.7 - 5.8 % [facility] Hematocrit (Bld) [Volume fraction] 40.9 % 37 - 47 % [facility] Hemoglobin (Bld) [Mass/Vol] 13.6 g/dL 11.2 - 15.7 g/dL [facility] Immature granulocytes (Bld) [#/Vol] 0.0 10*3/uL [facility] Immature granulocytes/100 WBC (Bld) 0.2 % [facility] Interpretation and review of laboratory results Abnormal [facility] Lymphocytes (Bld) [#/Vol] 1.8 10*3/uL 1.2 - 3.7 K/uL [facility] Lymphocytes/100 WBC (Bld) 16.5 % [facility] MCH (RBC) [Entitic mass] 31.1 pg 25.6 - 32.2 pg [facility] MCHC (RBC) [Mass/Vol] 33.3 % 32.2 - 35.5 % [facility] MCV (RBC) [Entitic vol] 93.4 fL 79.4 - 94.8 fL [facility] Monocytes (Bld) [#/Vol] 0.6 10*3/uL 0.2 - 0.9 K/uL [facility] Monocytes/100 WBC (Bld) 5.2 % 4.7 - 12.5 % [facility] Neutrophils Absolute 7.9 K/uL High 1.6 - 6 .1 K/uL [facility] Neutrophils/100 WBC (Bld) 74.9 % High 34 - 71.1 % [facility] Platelet distribution width (Bld) [Ratio] 12.8 % 11.7 - 14.4 % [facility] Platelets (Bld) [#/Vol] 192 10*3/uL 182 - 369 K/uL [facility] RBC (Bld) [#/Vol] 4.38 10*6/uL [facility] WBC (Bld) [#/Vol] 10.6 10*3/uL High 4 - 10 K/uL [facility] CT ABDOMEN PELVIS W IV [...] Melodie Ocampo MD 10/28/21 Final result Normal [facility] CT ABDOMEN PELVIS W IV CONTR AST Additional Contrast? Noneon 10-28-2021 No acute abdominopelvic abnormality. [facility] RADIOLOGY EXAMINATION: CT OF THE [...] stranding or fluid at the surgical site. [facility] RADIOLOGY Melodie Ocampo MD - [...] surgical site. IMPRESSION: No acute abdominopelvic abnormality. [facility]: Radiology Study observation (narrative) [facility] [employer] Phone: CT ABDOMEN PELVIS W IV CONTR AST Additional Contrast? NoneOrdered By: Melodie Ocampo on 10-28-2021 [facility] [employer] Phone: Comprehensive Metabolic Pane l reflex Mgon 10-28-2021 Albumin [Mass/Vol] 4.4 g/dL Normal 3.5-4.6 [facility] Comment on above: Performed By: #### C MPX #### [facility] [address] [place] [address] ALP [Catalytic activity/Vol] 118 U/L Normal 40-130 [facility] Comment on above: Performed By: #### C MPX #### [facility] [address] [place] [address] ALT [Catalytic activity/Vol] 6 U/L Normal 0-33 [facility] Comment on above: Performed By: #### C MPX #### [facility] [address] [place] [address] Anion gap [Moles/Vol] 11 mmol/L Normal 9-15 [facility] Comment on above: Performed By: #### C MPX #### [facility] [address] [place] [address] AST [Catalytic activity/Vol] 8 U/L Normal 0-35 [facility] Comment on above: Performed By: #### C MPX #### [facility] [address] [place] [address] Bilirubin [Mass/Vol] 0.4 mg/dL Normal 0.2-0.7 [facility] Comment on above: Performed By: #### C MPX #### [facility] [address] [place] [address] Calcium [Mass/Vol] 9.7 mg/dL Normal 8.5-9.9 [facility] Comment on above: Performed By: #### C MPX #### [facility] [address] [place] [address] Chloride [Moles/Vol] 104 mmol/L Normal 95-107 [facility] Comment on above: Performed By: #### C MPX #### [facility] [address] [place] [address] CO2 [Moles/Vol] 23 mmol/L Normal 20-31 [facility] Comment on above: Performed By: #### C MPX #### [facility] [address] [place] [address] Creatinine [Mass/Vol] 0.60 mg/dL Normal 0.50-0.90 [facility] Comment on above: Performed By: #### C MPX #### [facility] [address] [place] [address] GFR >60.0 Normal >60 [facility] Comment on above: Result Comment: >60 mL/min/1.73m2 EGFR, calc. for ages 18 and older using the MDRD formula (not corrected for weight), is valid for stable renal function. Performed By: #### C MPX #### [facility] [address] [place] [address] GFR/1.73 sq M.predicted among blacks MDRD (S/P/Bld) [Vol rate/Area] mL/min/{1.73_m2} Normal >60 [facility] Comment on above: Result Comment: >60 mL/min/1.73m2 EGFR, calc. for ages 18 and older using the MDRD formula (not corrected for weight), is valid for stable renal function. Performed By: #### C MPX #### [facility] [address] [place] [address] Globulin (S) [Mass/Vol] 3.1 g/dL Normal 2.3-3.5 [facility] Comment on above: Performed By: #### C MPX #### [facility] [address] [place] [address] Glucose [Mass/Vol] 95 mg/dL Normal 70-99 [facility] Comment on above: Performed By: #### C MPX #### [facility] [address] [place] [address] Magnesium [Moles/Vol] 4.2 mmol/L Normal 3.4-4.9 [facility] Comment on above: Performed By: #### C MPX #### [facility] [address] [place] [address] Protein [Mass/Vol] 7.5 g/dL Normal 6.3-8.0 [facility] Comment on above: Performed By: #### C MPX #### [facility] [address] [place] [address] Sodium [Moles/Vol] 138 mmol/L Normal 135-144 [facility] Comment on above: Performed By: #### C MPX #### [facility] [address] [place] [address] Urea nitrogen [Mass/Vol] 14 mg/dL Normal 6-20 [facility] Comment on above: Performed By: #### C MPX #### [facility] [address] [place] [address] Comprehensive Metabolic Pane l w/ Reflex to MGon 10-28-2021 Albumin [Mass/Vol] 4.4 g/dL 3.5 - 4.6 g/dL [facility] ALP (Bld) [Catalytic activity/Vol] 118 U/L 40 - 130 U/L [facility] ALT [Catalytic activity/Vol] 6 U/L 0 - 33 U/L [facility] Anion gap [Moles/Vol] 11 mmol/L [facility] AST [Catalytic activity/Vol] 8 U/L 0 - 35 U/L [facility] Bilirubin [Mass/Vol] 0.4 mg/dL 0.2 - 0 .7 mg/dL [facility] Calcium [Mass/Vol] 9.7 mg/dL 8.5 - 9.9 mg/dL [facility] Chloride [Moles/Vol] 104 mmol/L [facility] CO2 [Moles/Vol] 23 mmol/L [facility] Creatinine [Mass/Vol] 0.6 mg/dL 0.5 - 0.9 mg/dL [facility] Free PSA/Total PSA [Mass fraction] 7.5 g/dL 6.3 - 8 g/dL [facility] GFR >60.0 60 - PINF [facility] Comment on above: >60 mL/min/1.73m2 EG FR, calc. for ages 18 and older using the MDRD formula (not corrected for weight), is valid for stable renal function. GFR Non- >60.0 60 - PINF [facility] Comment on above: >60 mL/min/1.73m2 EG FR, calc. for ages 18 and older using the MDRD formula (not corrected for weight), is valid for stable renal function. Globulin (S) [Mass/Vol] 3.1 g/dL 2.3 - 3.5 g/dL [facility] Glucose [Mass/Vol] 95 mg/dL 70 - 99 mg/dL [facility] Potassium reflex Magnesium 4.2 [facility] Sodium [Moles/Vol] 138 mmol/L [facility] Urea nitrogen (BldV) [Mass/Vol] 14 mg/dL 6 - 20 mg/dL [facility] Culture, Wound AerobicShen 10-28-2021 Culture, Wound Aerobic, Anaerobic ORDER#: [id number] ORDERED BY: SPRING OROZCO SOURCE: Incision COLLECTED: 10/28/21 16:45 ANTIBIOTICS AT [place].: RECEIVED : 10/28/21 22:09 Culture, Wound Aerobic, Anaerobic PRELIM 11/01/21 08:12 Direct Exam: NO NEUTROPHILS SEEN Direct Exam: NO BACTERIA SEEN Cult,Aerobe/Anaerobe: GRAM NEGATIVE RODS Cult,Aerobe/Anaerobe: LIGHT GROWTH Cult,Aerobe/Anaerobe: Mixed skin to Cult,Aerobe/Anaerobe: No anaerobic organisms isolated at 3 days. Performed at [address] [address] Normal [facility] Comment on above: Performed By: #### I CWAN #### [facility] [address] [facility] [id number] , Urineon 2 Beta HCG ( test) Ql (U) Negative Detects HCG level >20 MIU/mL [facility] UR HCG Qualitativeon 022 Beta HCG ( test) Ql (U) Negative Normal Detects HC [facility] Comment on above: Performed By: #### C BCWD #### [facility] [address] [facility] [address] Urinalysis with Reflex to Cu ltureon 10-28-2021 Bilirubin Urine Negative Negative [facility] Blood, Urine Negative Negative [facility] Clarity, UA Clear Clear [facility] Color, UA Yellow Straw/Yellow [facility] Glucose, Ur Negative Negative mg/dL [facility] Ketones Ql (U) Negative Negative mg/dL [facility] Leukocyte esterase Test strip Ql (U) Negative Negative [facility] Nitrite, Urine Negative Negative [facility] pH, UA 5.5 5 - 9 [facility] Protein, UA Negative Negative mg/dL [facility] Specific [place], UA 1.015 1.005 - 1.03 [facility] Urine Reflex to Culture Not Indicated [facility] Urobilinogen, Urine 0.2 NINF [facility] Urinalysis, reflex to cultur minoo 10-28-2021 Bilirubin Ql (U) Negative Normal Negative [facility] Comment on above: Performed By: #### U AR #### [facility] [address] [place] [address] Clarity (U) Clear Normal Clear [facility] Comment on above: Performed By: #### U AR #### [facility] [address] [place] [address] Color (U) Yellow Normal St[facility] Comment on above: Performed By: #### U AR #### [facility] [address] [place] [address] Glucose Ql (U) Negative Normal Negative [facility] Comment on above: Performed By: #### U AR #### [facility] [address] [place] [address] Hemoglobin Ql (U) Negative Normal Negative [facility] Comment on above: Performed By: #### U AR #### [facility] [address] [place] [address] Ketones Ql (U) Negative Normal Negative [facility] Comment on above: Performed By: #### U AR #### [facility] [address] [place] [address] Leukocyte esterase Test strip Ql (U) Negative Normal Negative [facility] Comment on above: Performed By: #### U AR #### [facility] [address] [place] [address] Nitrite Ql (U) Negative Normal Negative [facility] Comment on above: Performed By: #### U AR #### [facility] [address] [place] [address] pH (U) 5.5 [pH] Normal 5.0-9.0 [facility] Comment on above: Performed By: #### U AR #### [facility] [address] [place] [address] Protein Ql (U) Negative Normal Negative [facility] Comment on above: Performed By: #### U AR #### [facility] [address] [place] [address] Specific gravity (U) [Rel density] 1.015 Normal 1.005-1.03 [facility] Comment on above: Performed By: #### U AR #### [facility] [address] [facility] [address] Urine Reflexed to Culture Not Indicated Normal [facility] Comment on above: Performed By: #### U AR #### [facility] [address] [place] [address] Urobilinogen Qn (U) 0.2 {Ginger'U}/dL Normal < 2.0 [facility] Comment on above: Performed By: #### U AR #### [facility] [address] [facility] [address] Allergen, Food, Comprehensiv e Profile 08-31-2021 Allergen, Food, Barley IgE <0.[address] [facility] Allergen, Food, Beef IgE <0.10 [facility] Allergen, Food, Cabbage <0.10 [facility] Allergen, Food, Carrot <0.10 [facility] Allergen, Food, Chicken <0.10 [facility] Allergen, Food, Codfish IgE <0.10 [facility] Allergen, Food, [place] IgE <0.[address] [facility] Allergen, Food, Crab IgE <0.10 [facility] Allergen, Food, Egg White <0.10 [facility] Allergen, Food, Grape IgE <0.10 [facility] Allergen, Food, Lettuce IgE <0.[address] [facility] Allergen, Food, Milk (Cow) IgE <0.[address] [facility] Allergen, Food, [place] <0.10 [facility] Allergen, Food, Oat IgE <0.10 [facility] Allergen, Food, [place] IgE <0.[address] [facility] Allergen, Food, Peanut IgE <0.10 [facility] Allergen, Food, Pepper C. annuum IgE <0.[address] [facility] Allergen, Food, Pork IgE <0.[address] [facility] Comment on above: Result Comment: [facility] [address] [place], [place] [id number] ([phone] Allergen, Food, Potato <0.[address] [facility] Allergen, Food, Rice IgE <0.[address] [facility] Allergen, Food, [place] IgE <0.[address] [facility] Allergen, Food, Shrimp IgE <0.[address] [facility] Allergen, Food, Soybean IgE <0.[address] [facility] Allergen, Food, Tomato IgE <0.[address] [facility] Allergen, Food, Tuna IgE <0.[address] [facility] Allergen, Food, Wheat IgE <0.[address] [facility] Comment on above: Result Comment: ALLERGEN, [...] anaphylaxis. Immunoglobulin E 53 IU/mL Normal [facility] Comment on above: Result Comment: [facility] [address] [place], [place] [id number] ([phone] CBC With Platelet and Differ entialon 08-21-2021 Abs Imm Granulocytes 0.0 K/uL Normal [facility] Comment on above: Performed By: #### C BCWD #### [facility] [address] [place] [address] Basophils (Bld) [#/Vol] 0.0 10*3/uL Normal 0.0-0.1 [facility] Comment on above: Performed By: #### C BCWD #### [facility] [address] [place] [address] Basophils/100 WBC (Bld) 0.3 % Normal 0.1-1.2 [facility] Comment on above: Performed By: #### C BCWD #### [facility] [address] [place] [address] Eosinophils (Bld) [#/Vol] 0.2 10*3/uL Normal 0.0-0.4 [facility] Comment on above: Performed By: #### C BCWD #### [facility] [address] [place] [address] Eosinophils/100 WBC (Bld) 2.4 % Normal 0.7-5.8 [facility] Comment on above: Performed By: #### C BCWD #### [facility] [address] [place] [address] Erythrocyte distribution width (RBC) [Ratio] 12.6 % Normal 11.7-14.4 [facility] Comment on above: Performed By: #### C BCWD #### [facility] [address] [place] [address] Hematocrit (Bld) [Volume fraction] 41.7 % Normal 37.0-47.0 [facility] Comment on above: Performed By: #### C BCWD #### [facility] [address] [place] [address] Hemoglobin (Bld) [Mass/Vol] 13.6 g/dL Normal 11.2-15.7 [facility] Comment on above: Performed By: #### C BCWD #### [facility] [address] [place] [address] Imm Granulocytes 0.3 % Normal [facility] Comment on above: Performed By: #### C BCWD #### [facility] [address] [place] [address] Lymphocytes (Bld) [#/Vol] 2.2 10*3/uL Normal 1.2-3.7 [facility] Comment on above: Performed By: #### C BCWD #### [facility] [address] [place] [address] Lymphocytes/100 WBC (Bld) 25.3 % Normal [facility] Comment on above: Performed By: #### C BCWD #### [facility] [address] [place] [address] MCH (RBC) [Entitic mass] 30.8 pg Normal 25.6-32.2 [facility] Comment on above: Performed By: #### C BCWD #### [facility] [address] [place] [address] MCHC 32.6 % Normal 32.2-35.5 [facility] Comment on above: Performed By: #### C BCWD #### [facility] [address] [place] [address] MCV (RBC) [Entitic vol] 94.6 fL Normal 79.4-94.8 [facility] Comment on above: Performed By: #### C BCWD #### [facility] [address] [place] [address] Monocytes (Bld) [#/Vol] 0.4 10*3/uL Normal 0.2-0.9 [facility] Comment on above: Performed By: #### C BCWD #### [facility] [address] [place] [address] Monocytes/100 WBC (Bld) 4.4 % Low 4.7-12.5 [facility] Comment on above: Performed By: #### C BCWD #### [facility] [address] [place] [address] Neutrophils (Bld) [#/Vol] 5.8 10*3/uL Normal 1.6-6.1 [facility] Comment on above: Performed By: #### C BCWD #### [facility] [address] [place] [address] Neutrophils/100 WBC (Bld) 67.3 % Normal 34.0-71.1 [facility] Comment on above: Performed By: #### C BCWD #### [facility] [address] [place] [address] Platelets (Bld) [#/Vol] 200 10*3/uL Normal 182-369 [facility] Comment on above: Performed By: #### C BCWD #### [facility] [address] [place] [address] RBC (Bld) [#/Vol] 4.41 10*6/uL Normal 3.93-5.22 [facility] Comment on above: Performed By: #### C BCWD #### [facility] [address] [place] [address] WBC (Bld) [#/Vol] 8.6 10*3/uL Normal 4.0-10.0 [facility] Comment on above: Performed By: #### C BCWD #### [facility] [address] [place] [address] CBC with Auto Differentialon 08-21-2021 Basophils (Bld) [#/Vol] 0.0 10*3/uL 0.0 - 0.1 K/uL [facility] Basophils/100 WBC (Bld) 0.3 % 0.1 - 1.2 % [facility] Eosinophils (Bld) [#/Vol] 0.2 10*3/uL 0.0 - 0.4 K/uL [facility] Eosinophils/100 WBC (Bld) 2.4 % 0.7 - 5.8 % [facility] Hematocrit (Bld) [Volume fraction] 41.7 % 37.0 - 47.0 % [facility] Hemoglobin (Bld) [Mass/Vol] 13.6 g/dL 11.2 - 15.7 g/dL [facility] Immature granulocytes (Bld) [#/Vol] 0.0 10*3/uL [facility] Immature granulocytes/100 WBC (Bld) 0.3 % [facility] Interpretation and review of laboratory results Abnormal [facility] Lymphocytes (Bld) [#/Vol] 2.2 10*3/uL 1.2 - 3.7 K/uL [facility] Lymphocytes/100 WBC (Bld) 25.3 % [facility] MCH (RBC) [Entitic mass] 30.8 pg 25.6 - 32.2 pg [facility] MCHC (RBC) [Mass/Vol] 32.6 % 32.2 - 35.5 % [facility] MCV (RBC) [Entitic vol] 94.6 fL 79.4 - 94.8 fL [facility] Monocytes (Bld) [#/Vol] 0.4 10*3/uL 0.2 - 0.9 K/uL [facility] Monocytes/100 WBC (Bld) 4.4 % Low 4.7 - 12.5 % [facility] Neutrophils Absolute 5.8 K/uL 1.6 - 6 .1 K/uL [facility] Neutrophils/100 WBC (Bld) 67.3 % 34.0 - 71.1 % [facility] Platelet distribution width (Bld) [Ratio] 12.6 % 11.7 - 14.4 % [facility] Platelets (Bld) [#/Vol] 200 10*3/uL 182 - 369 K/uL [facility] RBC (Bld) [#/Vol] 4.41 10*6/uL [facility] WBC (Bld) [#/Vol] 8.6 10*3/uL 4.0 - 10.0 K/uL [facility] COVID-19on 08-21-2021 SARS-CoV-2 (COVID-19) RNA JOSIE+probe Ql (Unsp spec) Not detected Normal Not Detect [facility] Comment on above: Result [...] authorized laboratories. Fact sheet for Healthcare Providers: https://www.fda.gov/media/269206/download Fact sheet for Patients: https://www.fda.gov/media/524614/download METHODOLOGY: Isothermal Nucleic Acid Amplification Performed By: #### C BCWD #### [facility] [address] [place] [address] COVID-19, Rapidon 08-21-2021 SARS-CoV-2 (COVID-19) RNA JOSIE+probe Ql (Unsp spec) Not detected Not Detected [facility] Comment on above: Rapid NAAT: [...] authorized laboratories. Fact sheet for Healthcare Providers: https://www.fda.gov/media/138706/download Fact sheet for Patients: https://www.fda.gov/media/710448/download METHODOLOGY: Isothermal Nucleic Acid Amplification [facility] CT ABDOMEN PELVIS W IV [...] Some of this report was completed using [employer] voice-recognition technology and may include unintended errors [...] Mckay Solis MD 08/21/21 Final result Normal [facility] Comprehensive Metabolic Pane l reflex Mgon 08-21-2021 Albumin [Mass/Vol] 4.3 g/dL Normal 3.5-4.6 [facility] Comment on above: Performed By: #### C BCWD #### [facility] [address] [place] [address] ALP [Catalytic activity/Vol] 116 U/L Normal 40-130 [facility] Comment on above: Performed By: #### C BCWD #### [facility] [address] [place] [address] ALT [Catalytic activity/Vol] 8 U/L Normal 0-33 [facility] Comment on above: Performed By: #### C BCWD #### [facility] [address] [place] [address] Anion gap [Moles/Vol] 13 mmol/L Normal 9-15 [facility] Comment on above: Performed By: #### C BCWD #### [facility] [address] [place] [address] AST [Catalytic activity/Vol] 10 U/L Normal 0-35 [facility] Comment on above: Performed By: #### C BCWD #### [facility] [address] [place] [address] Bilirubin [Mass/Vol] mg/dL Normal 0.2-0.7 [facility] Comment on above: Performed By: #### C BCWD #### [facility] [address] [place] [address] Calcium [Mass/Vol] 9.3 mg/dL Normal 8.5-9.9 [facility] Comment on above: Performed By: #### C BCWD #### [facility] [address] [place] [address] Chloride [Moles/Vol] 105 mmol/L Normal 95-107 [facility] Comment on above: Performed By: #### C BCWD #### [facility] [address] [place] [address] CO2 [Moles/Vol] 22 mmol/L Normal 20-31 [facility] Comment on above: Performed By: #### C BCWD #### [facility] [address] [place] [address] Creatinine [Mass/Vol] 0.48 mg/dL Low 0.50-0.90 [facility] Comment on above: Performed By: #### C BCWD #### [facility] [address] [place] [address] GFR >60.0 Normal >60 [facility] Comment on above: Result Comment: >60 mL/min/1.73m2 EGFR, calc. for ages 18 and older using the MDRD formula (not corrected for weight), is valid for stable renal function. Performed By: #### C BCWD #### [facility] [address] [place] [address] GFR/1.73 sq M.predicted among blacks MDRD (S/P/Bld) [Vol rate/Area] mL/min/{1.73_m2} Normal >60 [facility] Comment on above: Result Comment: >60 mL/min/1.73m2 EGFR, calc. for ages 18 and older using the MDRD formula (not corrected for weight), is valid for stable renal function. Performed By: #### C BCWD #### [facility] [address] [place] [address] Globulin (S) [Mass/Vol] 2.5 g/dL Normal 2.3-3.5 [facility] Comment on above: Performed By: #### C BCWD #### [facility] [address] [place] [address] Glucose [Mass/Vol] 114 mg/dL Critically high 70-99 M [facility] Comment on above: Performed By: #### C BCWD #### [facility] [address] [place] [address] Magnesium [Moles/Vol] 3.6 mmol/L Normal 3.4-4.9 [facility] Comment on above: Performed By: #### C BCWD #### [facility] [address] [place] [address] Protein [Mass/Vol] 6.8 g/dL Normal 6.3-8.0 [facility] Comment on above: Performed By: #### C BCWD #### [facility] [address] [place] [address] Sodium [Moles/Vol] 140 mmol/L Normal 135-144 [facility] Comment on above: Performed By: #### C BCWD #### [facility] [address] [place] [address] Urea nitrogen [Mass/Vol] 10 mg/dL Normal 6-20 [facility] Comment on above: Performed By: #### C BCWD #### [facility] [address] [place] [address] Comprehensive Metabolic Pane l w/ Reflex to MGon 08-21-2021 Albumin [Mass/Vol] 4.3 g/dL 3.5 - 4.6 g/dL [facility] ALP (Bld) [Catalytic activity/Vol] 116 U/L 40 - 130 U/L [facility] ALT [Catalytic activity/Vol] 8 U/L 0 - 33 U/L [facility] Anion gap [Moles/Vol] 13 mmol/L [facility] AST [Catalytic activity/Vol] 10 U/L 0 - 35 U/L [facility] Bilirubin [Mass/Vol] mg/dL 0.2 - 0 .7 mg/dL [facility] Calcium [Mass/Vol] 9.3 mg/dL 8.5 - 9.9 mg/dL [facility] Chloride [Moles/Vol] 105 mmol/L [facility] CO2 [Moles/Vol] 22 mmol/L [facility] Creatinine [Mass/Vol] 0.48 mg/dL Low 0.50 - 0.90 mg/dL [facility] Free PSA/Total PSA [Mass fraction] 6.8 g/dL 6.3 - 8.0 g/dL [facility] GFR >60.0 >60 [facility] Comment on above: >60 mL/min/1.73m2 EG FR, calc. for ages 18 and older using the MDRD formula (not corrected for weight), is valid for stable renal function. GFR Non- >60.0 >60 [facility] Comment on above: >60 mL/min/1.73m2 EG FR, calc. for ages 18 and older using the MDRD formula (not corrected for weight), is valid for stable renal function. Globulin (S) [Mass/Vol] 2.5 g/dL 2.3 - 3.5 g/dL [facility] Glucose [Mass/Vol] 114 mg/dL High 70 - 99 mg/dL [facility] Interpretation and review of laboratory results Abnormal [facility] Potassium reflex Magnesium 3.6 [facility] Sodium [Moles/Vol] 140 mmol/L [facility] Urea nitrogen (BldV) [Mass/Vol] 10 mg/dL 6 - 20 mg/dL [facility] Lipaseon 08-21-2021 Lipase [Catalytic activity/Vol] 18 U/L Normal 12-95 [facility] Comment on above: Performed By: #### L IPAS #### [facility] [address] [id number] Lipase [Catalytic activity/Vol] 18 U/L 12 - 95 U/L [facility] No Panel Informationon 08-21 [facility] , Urineon 2 Beta HCG ( test) Ql (U) Negative Detects HCG level >20 MIU/mL [facility] UR HCG Qualitativeon 022 Beta HCG ( test) Ql (U) Negative Normal Detects [facility] Comment on above: Performed By: #### C BCWD #### [facility] [address] [place] [address] Urinalysis with Reflex to Cu ltureon 08-21-2021 Bilirubin Urine Negative Negative [facility] RS [facility] Blood, Urine Negative Negative [facility] Clarity, UA Clear Clear [facility] Color, UA Yellow Straw/Yellow [facility] Glucose, Ur Negative Negative mg/dL [facility] Ketones Ql (U) Negative Negative mg/dL [facility] Leukocyte esterase Test strip Ql (U) Negative Negative [facility] Nitrite, Urine Negative Negative [facility] pH, UA 5.5 [facility] Protein, UA Negative Negative mg/dL [facility] Specific [place], UA <=1.005 [facility] Urine Reflex to Culture Not Indicated [facility] Urobilinogen, Urine 0.2 <2.0 E.U./dL [facility] Urinalysis, reflex to cultur minoo 08-21-2021 Bilirubin Ql (U) Negative Normal Negative [facility] Comment on above: Performed By: #### C BCWD #### [facility] [address] [place] [address] Clarity (U) Clear Normal Clear [facility] Comment on above: Performed By: #### C BCWD #### [facility] [address] [place] [address] Color (U) Yellow Normal Straw/Gordon [facility] Comment on above: Performed By: #### C BCWD #### [facility] [address] [place] [address] Glucose Ql (U) Negative Normal Negative [facility] Comment on above: Performed By: #### C BCWD #### [facility] [address] [place] [address] Hemoglobin Ql (U) Negative Normal Negative [facility] Comment on above: Performed By: #### C BCWD #### [facility] [address] [place] [address] Ketones Ql (U) Negative Normal Negative [facility] Comment on above: Performed By: #### C BCWD #### [facility] [address] [place] [address] Leukocyte esterase Test strip Ql (U) Negative Normal Negative [facility] Comment on above: Performed By: #### C BCWD #### [facility] [address] [place] [address] Nitrite Ql (U) Negative Normal Negative [facility] Comment on above: Performed By: #### C BCWD #### [facility] [address] [place] [address] pH (U) 5.5 [pH] Normal 5.0-9.0 [facility] Comment on above: Performed By: #### C BCWD #### [facility] [address] [place] [address] Protein Ql (U) Negative Normal Negative [facility] Comment on above: Performed By: #### C BCWD #### [facility] [address] [place] [address] Specific gravity (U) [Rel density] <=1.005 Normal 1.005-1.03 [facility] Comment on above: Performed By: #### C BCWD #### [facility] [address] [place] [address] Urine Reflexed to Culture Not Indicated Normal [facility] Comment on above: Performed By: #### C BCWD #### [facility] [address] [place] [address] Urobilinogen Qn (U) 0.2 {Ginger'U}/dL Normal < 2.0 [facility] Comment on above: Performed By: #### C BCWD #### [facility] [address] [place] [address] CBC WITH AUTO DIFFERENTIALon 02-29-2020 Basophils (Bld) [#/Vol] 0.0 10*3/uL 0 - 0.2 K/uL [facility], [place] Basophils/100 WBC (Bld) 0.4 % [place] Eosinophils (Bld) [#/Vol] 0.2 10*3/uL 0 - 0.7 K/uL [place] Eosinophils/100 WBC (Bld) 2.6 % [place] Erythrocyte distribution width (RBC) [Ratio] 13.6 % 11.5 - 14.5 % [place] Hematocrit (Bld) [Volume fraction] 40.3 % 37 - 47 % [place] Hemoglobin (Bld) [Mass/Vol] 13.6 g/dL 12 - 16 g/dL [place] Lymphocytes (Bld) [#/Vol] 1.7 10*3/uL 1 - 4.8 K/uL [place] Lymphocytes/100 WBC (Bld) 21.0 % [place] MCH (RBC) [Entitic mass] 31.0 pg 27 - 31.3 pg [place] MCHC (RBC) [Mass/Vol] 33.9 % 33 - 37 % [place] MCV (RBC) [Entitic vol] 91.6 fL 82 - 100 fL [place] Monocytes (Bld) [#/Vol] 0.4 10*3/uL 0.2 - 0.8 K/uL [place] Monocytes/100 WBC (Bld) 4.6 % [place] Neutrophils Absolute 5.6 K/uL 1.4 - 6 .5 K/uL [place] Neutrophils/100 WBC (Bld) 71.4 % [place] Platelets (Bld) [#/Vol] 195 10*3/uL 130 - 400 K/uL [place] RBC (Bld) [#/Vol] 4.40 10*6/uL [place] WBC (Bld) [#/Vol] 7.9 10*3/uL 4.8 - 10.8 K/uL [place] COVID-19on 02-29-2020 SARS-CoV-2, NAAT Not Detected Not Detected [place] Comment on above: Rapid NAAT: Negative [...] authorized laboratories. Fact sheet for Healthcare Providers: https://www.fda.gov/media/100746/download Fact sheet for Patients: https://www.fda.gov/media/599907/download METHODOLOGY: Isothermal Nucleic Acid Amplification POC UR-QUALon 02-11 Beta HCG ( test) Ql (U) Negative Negative [place] Lot Number [id number] [place] Negative QC Pass/Fail Pass [place] Positive QC Pass/Fail Pass [place] Hemoglobinon 11-03-2019 Hemoglobin (Bld) [Mass/Vol] 11.2 g/dL Low 12 - 16 g/dL [place] Interpretation and review of laboratory results Abnormal [place] RPRon 11-03-2019 Reagin Ab RPR Ql (S) Non-reactive Non-reactive [place] CBC auto differentialon 10-13 Basophils (Bld) [#/Vol] 0.0 10*3/uL 0 - 0.2 K/uL [place] Basophils/100 WBC (Bld) 0.3 % [place] Eosinophils (Bld) [#/Vol] 0.1 10*3/uL 0 - 0.7 K/uL [place] Eosinophils/100 WBC (Bld) 1.2 % [place] Erythrocyte distribution width (RBC) [Ratio] 13.4 % 11.5 - 14.5 % [place] Hematocrit (Bld) [Volume fraction] 34.9 % Low 37 - 47 % [place] Hemoglobin (Bld) [Mass/Vol] 11.7 g/dL Low 12 - 16 g/dL [place] Interpretation and review of laboratory results Abnormal [place] Lymphocytes (Bld) [#/Vol] 1.4 10*3/uL 1 - 4.8 K/uL [place] Lymphocytes/100 WBC (Bld) 11.4 % [place] MCH (RBC) [Entitic mass] 31.2 pg 27 - 31.3 pg [place] MCHC (RBC) [Mass/Vol] 33.6 % 33 - 37 % [place] MCV (RBC) [Entitic vol] 93.0 fL 82 - 100 fL [place] Monocytes (Bld) [#/Vol] 0.5 10*3/uL 0.2 - 0.8 K/uL [place] Monocytes/100 WBC (Bld) 4.2 % [place] Neutrophils Absolute 10.1 K/uL High 1.4 - 6 .5 K/uL [place] Neutrophils/100 WBC (Bld) 82.9 % [place] Platelets (Bld) [#/Vol] 191 10*3/uL 130 - 400 K/uL [place] RBC (Bld) [#/Vol] 3.75 10*6/uL Low [place] WBC (Bld) [#/Vol] 12.1 10*3/uL High 4.8 - 10.8 K/uL [place] Comprehensive Metabolic Pane fortunato 11-02-2019 Albumin [Mass/Vol] 3.2 g/dL Low 3.5 - 4.6 g/dL [place] ALP [Catalytic activity/Vol] 147 U/L High 40 - 130 U/L [place] ALT [Catalytic activity/Vol] 6 U/L 0 - 33 U/L [place] Anion gap [Moles/Vol] 10 mmol/L [place] AST [Catalytic activity/Vol] 7 U/L 0 - 35 U/L [place] Bilirubin Ql (U) <0.2 0.2 - 0.7 mg/dL [place] Calcium [Mass/Vol] 8.4 mg/dL Low 8.5 - 9.9 mg/dL [place] Chloride [Moles/Vol] 104 mmol/L [place] CO2 [Moles/Vol] 21 mmol/L [place] Creatinine [Mass/Vol] 0.3 mg/dL Low 0.5 - 0.9 mg/dL [place] GFR >60.0 >60 [place] Comment on above: >60 mL/min/1.73m2 EG FR, calc. for ages 18 and older using the MDRD formula (not corrected for weight), is valid for stable renal function. GFR Non- >60.0 >60 [place] Comment on above: >60 mL/min/1.73m2 EG FR, calc. for ages 18 and older using the MDRD formula (not corrected for weight), is valid for stable renal function. Globulin (S) [Mass/Vol] 2.8 g/dL 2.3 - 3.5 g/dL [place] Glucose [Mass/Vol] 103 mg/dL High 70 - 99 mg/dL [place], [place] Interpretation and review of laboratory results Abnormal [place] Potassium [Moles/Vol] 3.9 mmol/L [place] Protein [Mass/Vol] 6.0 g/dL Low 6.3 - 8 g/dL [place] Sodium [Moles/Vol] 135 mmol/L [place] Urea nitrogen [Mass/Vol] 8 mg/dL 6 - 20 mg/dL [place] DRUG SCREEN MULTI URINEon Amphetamine Screen, Urine Negative Negative <1000 ng/mL [place] Barbiturate Screen, Ur Negative Negative < 200 ng/mL [place] Benzodiazepine Screen, Urine Negative Negative < 200 ng/mL [place] Cannabinoid Scrn, Ur Negative Negativ e < 50 ng/mL [place] Cocaine Metabolite Screen, Urine Negative Negative < 300 ng/mL [place] Drug Screen Comment: see below [place] Comment on above: This method is a scr eening test to detect only these drug classes as part of a medical workup. Confirmatory testing by another method should be ordered if clinically indicated. Methadone Screen, Urine Negative Negative <300 ng/mL [place] Comment on above: Effective: 10/20/18 New Test for Qualitative Drug Screen. Opiate Scrn, Ur Negative Negative < 300 ng/mL [place] Oxycodone Urine Negative Negative <10 0 ng/mL [place] Comment on above: Effective: 10/20/18 New Test for Qualitative Drug Screen. PCP Screen, Urine Negative Negative < 25 ng/mL [place] Propoxyphene Scrn, Ur Negative Negative <300 ng/mL [place] Comment on above: Effective: 10/20/18 New Test for Qualitative Drug Screen. Hepatitis B surface antigeno n 11-02-2019 Hep B S Ag Interp Non-reactive [place] Rubella antibody, IgGon 10-13 Rubella Antibody IgG 69.5 IU/mL [place] Comment on above: Patient's result ind icates immunity. Default Normal Ranges >=10 Presumed Immune <10 Presumed Not immune TYPE AND SCREENon 11-02-2019 ABO/Rh Positive [place] Urinalysison 11-02-2019 Bilirubin Urine Negative Negative [place] Blood, Urine Negative Negative [place] Clarity, UA Clear Clear [place] Color, UA Yellow Straw/Yellow [place] Glucose, Ur Negative Negative mg/dL [place] Ketones Ql (U) Negative Negative mg/dL [place] Leukocyte esterase Test strip Ql (U) Negative Negative [place] Nitrite, Urine Negative Negative [place] pH, UA 7.5 [place] Protein (U) [Mass/Vol] Negative Negative mg/dL [place] Specific [place], UA 1.020 [place] Urobilinogen, Urine 0.2 <2.0 E.U./dL [place] Otheron 06-19-2019 APPROPRIATE GROWTH SINCE LAST SONOGRAM. [place] Sonogram #: 1 Presentation: Transverse, head [...] the amniotic fluid is within normal limits. [employer] [facility] [place], [place] Manny, Chpo Incoming Radiant Results From [employer]: [employer] - 06/19/2019 5:09 PM EDT Sonogram #: [...] limits. IMPRESSION: APPROPRIATE GROWTH SINCE LAST SONOGRAM. [employer], Penemarie K Murphy US OB LESS THAN 14 WEEKS SIN GLE OR FIRST GESTATIONon 04-14-2019 THERE IS A SINGLE IU P WITH ESTIMATED GESTATIONAL AGE BASED UPON CROWN-RUMP LENGTH OF 10 WEEKS 2 DAYS +/- 1 WEEK WITH HEART RATE OF 155 BPM. ANATOMY IS NOT ASSESSED DUE TO EARLY GESTATIONAL AGE. THE RIGHT OVARY IS SURGICALLY ABSENT. THE LEFT OVARY SUBMITTED VISUALIZED. [employer] [place], [place] TRANSABDOMINAL EXAMINATION OF THE PELVIS CLINICAL DATA: [...] ovary is not visualized. No free fluid. [facility] Manny[facility] Chpo Incoming Radiant Results From [email or web address] - 04/14/2019 4:16 PM EST TRANSABDOMINAL EXAMINATION [...] SURGICALLY ABSENT. THE LEFT OVARY SUBMITTED VISUALIZED. [facility] PROGRESSon 09-30-2018 PROGRESS HNO ID: [id number] Author: Maranda Parker (Christian) Vimal Service: ? Author Type: BRAND INSPECTOR Type: Progress Notes Filed: 09/30/2018 3:29 PM [...] OD September 30, 2018 2:08 PM Normal [facility] PROGRESSon 04-24-2018 PROGRESS HNO ID: [id number] Author: Maranda Celis Service: ? Author Type: BRAND INSPECTOR Type: Progress Notes Filed: 04/24/2018 3:32 PM [...] OD April 24, 2018 3:31 PM Normal [facility] Office Visit (Urgent Care)on 08-21-2017 Office Visit (Urgent Care) Chief Complaint Rash History of Present [id number] female who 2 hours ago was sitting [...] 08/21/2017 5:38:10 PM Vitals Vital Signs Recorded: [id number]. 5 FHeart [id number] fltapak466Cryvfyslw07 Height5 ft 3 [id number] lb BMI [id number] Calculated1.83O2 Bzkxmlvnum40Hpsh Scale0 Physical ExamPatient appears in no apparent [...] 160 cm Sulema Teran DO Work Phone: [employer] 12-16-2021 07:12-0400 Body mass index (BMI) [Ratio] 31.89 kg/m2 Sulema Teran DO Work Phone: [employer] 12-16-2021 07:12-0400 Body temperature 98.91 [degF] Sulema Teran DO Work Phone: [employer] 12-16-2021 07:12-0400 Body weight 81.65 kg Sulema Teran DO Work Phone: [employer] 12-16-2021 07:12-0400 Diastolic blood pressure 84 mm[Hg] Sulema Teran DO Work Phone: [employer] 12-16-2021 07:12-0400 Heart rate 104 /min Sulema Teran DO Work Phone: [employer] 12-16-2021 07:12-0400 Respiratory rate 18 /min Sulema Teran DO [facility] Phone[facility] [employer] 12-16-2021 07:12-0400 SaO2% (BldA) [Mass fraction] 98 % Sulema Teran DO Work Phone: [facility] [employer] 12-16-2021 07:12-0400 Systolic blood pressure 127 mm[Hg] Sulema Teran DO Work Phone: [facility] [employer] 10-28-2021 15:43-0400 Body height 160 cm Nikki Martha-David PA-C Work Phone: [facility] [employer] 10-28-2021 15:43-0400 Body mass index (BMI) [Ratio] 31.89 kg/m2 Nikki Martha-David PA-C Work Phone[facility] [employer] 10-28-2021 15:43-0400 Body temperature 98.1 [degF] Nikki Martha-David PA-C Work Phone: [facility] [employer] 10-28-2021 15:43-0400 Body weight 81.65 kg Nikki Martha-David PA-C Work Phone: [facility] [employer] 10-28-2021 15:43-0400 Diastolic blood pressure 81 mm[Hg] Nikki Martha-David PA-C Work Phone: [facility] [employer] 10-28-2021 15:43-0400 Heart rate 93 /min Nikki Martha-David PA-C Work Phone: [facility] [employer] 10-28-2021 15:43-0400 Respiratory rate 20 /min Nikki Martha-David PA-C Work Phone[facility] [employer] 10-28-2021 15:43-0400 SaO2% (BldA) [Mass fraction] 98 % Nikki Martha-David PA-C Work Phone: [employer] 10-28-2021 15:43-0400 Systolic blood pressure 130 mm[Hg] Nikki Froilan PA-C Work Phone: [facility] [employer] 08-21-2021 06:21-0400 Body temperature 98.2 [degF] Penny Ritter MD Work Phone: [employer] 08-21-2021 06:21-0400 Diastolic blood pressure 58 mm[Hg] Penny Ritter MD Work Phone: [employer] 08-21-2021 06:21-0400 Heart rate 81 /min Penny Ritter MD Work Phone: [employer] 08-21-2021 06:21-0400 Respiratory rate 16 /min Penny Ritter MD Work Phone: [employer] 08-21-2021 06:21-0400 SaO2% (BldA) [Mass fraction] 97 % Penny Ritter MD Work Phone: [employer] 08-21-2021 06:21-0400 Systolic blood pressure 116 mm[Hg] Penny Ritter MD Work Phone: [employer] 08-21-2021 01:09-0400 Body height 160 cm Penny Ritter MD Work Phone: [employer] 08-21-2021 01:09-0400 Body mass index (BMI) [Ratio] 32.06 kg/m2 Penny Ritter MD Work Phone: [employer] 08-21-2021 01:09-0400 Body weight 82.1 kg Penny Ritter MD Work Phone: [employer] 11-05-2020 07:21-0400 Body temperature 98.1 [degF] Rebecca Gonzalez [employer] Work Phone: 11-05-2020 07:21-0400 Diastolic blood pressure 71 mm[Hg] Rebecca Gonzalez [employer] Phone: 11-05-2020 07:21-0400 Heart rate 94 /min Rebecca Gonzalez [employer] Phone: 11-05-2020 07:21-0400 Respiratory rate 18 /min Rebecca Gonzalez [employer] Phone: 11-05-2020 07:21-0400 SaO2% (BldA) [Mass fraction] 99 % Rebecca Gonzalez [employer] Phone: 11-05-2020 07:21-0400 Systolic blood pressure 116 mm[Hg] Rebecca Gonzalez [employer] Phone: 02-29-2020 12:25-0500 Body Temperature 97.7 [degF] [employer], [place] 02-29-2020 12:25-0500 BP Diastolic 56 mm[Hg] Rj Mandae [facility] [place] , [place] 02-29-2020 12:25-0500 BP Systolic 123 mm[Hg] Rj Mandae [facility] , [place] 02-29-2020 12:25-0500 Pulse (Heart Rate) 76 /min Rj [employer], [place] 02-29-2020 12:25-0500 Pulse Oximetry 99 % Rj Mandae [facility] , [place] 02-29-2020 12:25-0500 Respiratory Rate 16 /min [employer], [place] 02-29-2020 08:15-0500 BMI (Body Mass Index) 34.54 kg/m2 Rj [employer] [facility], [place] 02-29-2020 08:15-0500 Body weight 88.45 kg Rj Mandae [facility] , [place] 02-29-2020 08:15-0500 Height 160 cm Rj [employer] [facility] , [place] 11-04-2019 07:30-0400 Body Temperature 98.29 [degF] [facility] [facility] [place] 11-04-2019 07:30-0400 BP Diastolic 68 mm[Hg] [facility] , [place] 11-04-2019 07:30-0400 BP Systolic 115 mm[Hg] [facility] , [place] 11-04-2019 07:30-0400 Pulse (Heart Rate) 88 /min [facility] 11-04-2019 07:30-0400 Respiratory Rate 16 /min [facility], [place] 11-03-2019 12:37-0400 Pulse Oximetry 99 % [facility] , [place] 11-02-2019 07:45-0400 BMI (Body Mass Index) 37.91 kg/m2 Rj Aguilar [facility], [place] 11-02-2019 07:45-0400 Body weight 97.07 kg [facility] , [place] 11-02-2019 07:45-0400 Height 160 cm [facility] , [place] 09-30-2018 10:02-0400 BMI (Body Mass Index) 31 kg/m2 Tip [facility], [place] 09-30-2018 10:02-0400 Body Temperature 98.49 [degF] Tip [facility], [place] 09-30-2018 10:02-0400 [facility] [place] 09-30-2018 10:02-0400 BP Diastolic 71 mm[Hg] [facility] , [place] 09-30-2018 10:02-0400 BP Systolic 139 mm[Hg] [facility] , [place] 09-30-2018 10:02-0400 Height 160 cm [facility] , [place] 09-30-2018 10:02-0400 Pulse (Heart Rate) 102 /min [facility], [place] 09-30-2018 10:02-0400 Pulse Oximetry 98 % [facility] , [place] 09-30-2018 10:02-0400 Respiratory Rate 14 /min [facility] [place] Encounters Encounter Date Encounter Type Care Provider Facility Start: 04-01-2023 End: 04-01-2023 ambulatory JOSE F SETH Not Available Start: 03-21-2023 End: 03-21-2023 ambulatory JOSE F R SETH [facility] Start: 03-18-2023 Chart abstracting Fish lorenz MD Work Phone: [facility] Start: 03-11-2023 End: 03-11-2023 ambulatory JOSE F SETH Not Available Start: 02-18-2023 End: 02-18-2023 ambulatory DONNELL FINCH Not Available Start: 01-29-2023 End: 01-30-2023 ambulatory [facility] Facility:[facility] Start: 01-29-2023 End: 01-29-2023 Patient encounter procedure Jose F R SETH [facility] Start: 01-29-2023 End: 01-30-2023 ambulatory Jose F R SETH Facility:[facility] Start: 01-29-2023 End: 01-29-2023 Patient encounter procedure Jose F R SETH [facility] Start: 01-11-2023 End: 01-12-2023 ambulatory Jose F R SETH Facility:[facility] Start: 01-11-2023 End: 01-11-2023 Patient encounter procedure Jose F R SETH [facility] Start: 01-10-2023 End: 01-10-2023 ambulatory JOSE F SETH Not Available Start: 12-28-2022 End: 12-28-2022 ambulatory DONNELL FINCH Not Available Start: 07-31-2022 End: 07-31-2022 Emergency department [facility] Start: 04-11-2022 End: 04-12-2022 ambulatory LILIANA CARROLL [facility] Start: 04-11-2022 End: 04-11-2022 Subsequent hospital visit by physician Nikki Mcgovern PA-C Work Phone: [facility] Comment on above: Tonsillitis with exu date Start: 12-16-2021 End: 12-16-2021 Emergency department patient visit [facility] Start: 12-16-2021 End: 12-16-2021 Emergency department patient visit Sulema Teran DO Work Phone: [facility] ED Comment on above: Bitten by mouse, ini tial encounter (Primary Dx) Start: 11-29-2021 End: 11-29-2021 ambulatory [facility] Start: 10-28-2021 End: 10-28-2021 Emergency department patient visit [facility] Start: 10-28-2021 End: 10-28-2021 [facility] Work Phone: [facility] ED Comment on above: Cellulitis of trunk, unspecified site of trunk (Primary Dx) Start: 08-21-2021 End: 08-21-2021 Emergency department patient visit [facility] Start: 08-21-2021 End: 08-21-2021 Emergency department patient visit Penny Ritter MD Work Phone: [facility] ED Comment on above: Acute gastritis with out hemorrhage, unspecified gastritis type (Primary Dx) Start: 11-05-2020 End: 11-05-2020 Emergency department patient visit Rebecca S Gonzalez DO [facility] ED Comment on above: Dental [...] hospital visit by physician Madhav Ultrasound 3 [facility] Ultrasound Comment on above: Amenorrhea Start: 04-14-2019 End: 04-16-2019 Subsequent hospital visit by physician Olvera Ultrasound Room 1 [facility] Ultrasound Comment on above: Amenorrhea Start: 09-30-2018 End: 09-30-2018 Emergency department patient visit Tip Antunez Work Phone: [facility] ED Comment on above: Pain [...] abdomen & pelvis w/contrast material Spring Orozco SALES REPRESENTATIVE [facility] [employer] Other Phone: Start: 10-28-2021 Blood count complete auto&auto difrntl wbc Spring Orozco SALES REPRESENTATIVE [facility] [employer] Other Phone: Start: 10-28-2021 Urine test visual color cmprsn meths Spring Orozco SALES REPRESENTATIVE [facility] [employer] Other Phone: Start: 08-21-2021 Assay of lipase [...] Rj Aguilar Work Phone: c section x2 [facility] Colon[facility] [employer] SETH extraction of wisdom teeth [facility] H/O: section Previous c esarean section Mloz 1 Plan of Treatment Date Care Activity Detail Author Start: 12-17-2031 DTaP/Tdap/Td vaccine (3 - Td or Tdap) DTaP/Tdap/Td vaccine (3 - Td or Tdap) [facility] Start: 07-12-2025 Screening for malign ant neoplasm of cervix [facility] Start: 05-27-2024 Screening for malign ant neoplasm of cervix Cervical cancer screen [place] Start: 07-13-2023 Screening for malign ant neoplasm of cervix Pap smear [facility] [employer] Start: 03-21-2023 End: 03-21-2023 Patient encounter procedure 03/21/2023 8:00 AM EST Appointment [facility] [address] [facility] [address] [place] [address] [facility] Start: 03-07-2023 Depression Monitoring Depression Mon A Fourth Act [facility] [employer] [facility] Start: 10-12-2022 Influenza vaccination Influenza Vacc ine [facility] Start: 08-29-2022 Depression Monitoring Depression Mon A Fourth Act [facility] [employer] [facility] Start: 06-08-2022 End: 06-08-2022 Patient encounter procedure 06/08/2022 Office Visit Neurology Blas Mike MD [address] [address] [facility] Neurology Start: 02-02-2022 End: 02-02-2022 Patient encounter procedure 02/02/2022 Office Visit Neurology Blas Mike MD [address] [place] [address] [facility] Neurology Start: 01-10-2022 End: 01-10-2022 Patient encounter procedure 01/10/2022 Office Visit Family Medicine Nikki Mcgovern PA-C [address] [place] [address] [facility] Start: 12-18-2021 End: 12-18-2021 Patient encounter procedure 12/18/2021 Office Visit Orthopedic Surgery Alena Chandra MD [address] [place] [address] [facility] Orthopedics and Sports Medicine Start: 10-12-2021 Influenza vaccination Flu vaccine (# 1) [facility] Start: 09-29-2021 End: 09-29-2021 Patient encounter procedure 09/29/2021 Office Visit Neurology Blas Mike MD [address] [place] [address] [facility] Neurology Start: 09-11-2021 Influenza vaccination Flu vaccine (# 1) [facility] Start: 01-20-2021 End: 01-20-2021 Patient encounter procedure 01/20/2021 Office Visit Neurology Blas Mike MD [address] [place] [address] [facility] Neurology Start: 12-01-2020 End: 12-01-2020 Patient encounter procedure 12/01/2020 Office Visit Obstetrics and Gynecology Rj Aguilar, [address] [place] [address] [phone] [facility] Obstetrics and Gynecology Start: 10-12-2020 Influenza vaccination Flu vaccine (# 1) [facility] Work Phone: Start: 09-29-2020 End: 09-29-2020 Patient encounter procedure 09/29/2020 Office Visit Family Medicine Nikki Mcgovern PA-C [address] [place] [address] [phone] [facility] Start: 09-16-2020 End: 09-16-2020 Patient encounter procedure 09/16/2020 Office Visit Neurology Blas Mike MD [address] [place] [address] [phone] [facility] Start: 02-16-2020 End: 02-16-2020 Procedure visit 02/16/2020 Procedure visit Obstetrics and Gynecology Rj Aguilar, [place] [address] [place] [address] [phone] [facility] Obstetrics and Gynecology Start: 12-01-2019 DTaP/Tdap/Td vaccine (2 - Td or Tdap) DTaP/Tdap/Td vaccine (2 - Td or Tdap) [facility] Start: 12-01-2019 DTaP/Tdap/Td vaccine (2 - Td) DTaP/Tdap/Td vaccine (2 - Td) [place] Start: 10-13-2019 Influenza vaccination [place], [place] Start: 06-25-2019 End: 06-25-2019 Routine 06/25/2019 Routine Obstetrics and Gynecology Rj Aguilar DO [address] [place] [address] [phone] [facility] Obstetrics and Gynecology Start: 05-05-2019 End: 05-05-2019 Routine 05/05/2019 Routine Obstetrics and Gynecology Rj Aguilar DO [address] [place] [address] [phone] [facility] Obstetrics and Gynecology Start: 10-12-2018 Influenza vaccination Flu vaccine (# 1) [place] Start: 05-07-2016 Cervical cancer screen Cervical canc er screen [place], [place] Start: 10-20-2008 Screening for malign ant neoplasm of cervix Pap Smear [facility] Start: 10-20-2006 DTaP,Tdap and Td Vaccines (1 - Tdap) DTaP,Tdap and Td Vaccines (1 - Tdap) [facility] Start: 10-20-2005 Adult BMI Screening Adult BMI Screen ing [facility] Start: 10-20-2000 Varicella Vaccine (1 of 2 - 13+ 2-dose series) Varicella Vaccine (1 of 2 - 13+ 2-dose series) [place], [place] Start: 1999 COVID-19 Vaccine (1) COVID-19 Vaccin e (1) [facility] [employer] Phone: Start: 1999 Depression [facility] Start: 1999 Depression Screening Depression Scre ening [facility] Start: 1999 Tobacco Screening Tobacco Screening [facility] Start: 10-20-1993 Pneumococcal 0-64 ye ars Vaccine (1 - PCV) Pneumococcal 0-64 years Vaccine (1 - PCV) [facility] Start: 10-20-1993 Pneumococcal 0-64 ye ars Vaccine (1 of 1 - PPSV23) Pneumococcal 0-64 years Vaccine (1 of 1 - PPSV23) [place] Start: 10-20-1993 Pneumococcal 0-64 ye ars Vaccine (1 of 2 - PPSV23) Pneumococcal 0-64 years Vaccine (1 of 2 - PPSV23) [facility] [employer] Phone: Start: 10-20-1992 COVID-19 Vaccine (1) COVID-19 Vaccin e (1) [facility] Start: 10-20-1988 Varicella vaccine (1 of 2 - 2-dose childhood series) Varicella vaccine (1 of 2 - 2-dose childhood series) [facility] Start: 04-19-1988 COVID-19 Vaccine (#1) COVID-19 Vacci ne (#1) [facility] Start: 1987 Tobacco Counseling Tobacco Counselin [facility] End: 08-21-2021 CT ABDOMEN PELVIS W IV CONTRAST Additional Contrast? None CT ABDOMEN PELVIS W IV CONTRAST Additional Contrast? None Imaging Routine Once for 1 Occurrences starting 08/21/2021 until 08/21/2021 [employer] Phone: Comment on above: Once for 1 Occurrenc es starting 08/21/2021 until 08/21/2021 CT ABDOMEN PELVIS W IV CONTRAST Additional Contrast? None CT ABDOMEN PELVIS W IV CONTRAST Additional Contrast? None Imaging STAT 08/21/2021 2:34 AM EDT [employer] Phone: End: 10-28-2021 Culture, Anaerobic and Aerobic Culture, Anaerobic and Aerobic Microbiology Routine One Time for 1 Occurrences starting 10/28/2021 until 10/28/2021 [employer] Phone: Comment on above: One Time for 1 Occur rences starting 10/28/2021 until 10/28/2021 End: 04-11-2022 Culture, Throat [employer] Phone: Comment on above: 1 Occurrences starti ng 04/11/2022 until 04/11/2022 End: 08-12-2020 Holter Monitor 48 Hour Holter Monitor 48 Hour Cardiac Services Routine Heart palpitations 1 Occurrences starting 08/12/2020 until 08/12/2020 [employer] Phone: Comment on above: 1 Occurrences starti ng 08/12/2020 until 08/12/2020 Oxygen therapy [[facility]ini [facility] Data Set] [facility] Comment on above: Daily until disconti nued starting 11/02/2019 Daily until disconti nued starting 02/29/2020 Phase I & II - meter ed glucose Phase I & II - metered glucose Point of Care Testing Routine As Needed until discontinued starting 02/29/2020 [employer] Comment on above: As Needed until disc ontinued starting 02/29/2020 End: 11-02-2019 RHOGAM INJECTION ONLY RHOGAM INJECTION ONLY Blood Bank Routine One Time for 1 Occurrences starting 11/02/2019 until 11/02/2019 [place] Comment on above: One Time for 1 Occur rences starting 11/02/2019 until 11/02/2019 Spirometry panel Incentive jayleen metry Respiratory Care Routine Every 2hr while awake until discontinued starting 11/02/2019 [place] Comment on above: Every 2hr while awak e until discontinued starting 11/02/2019 Surgical Pathology Surgical Path ology Lab Routine Release Upon Ordering for 1 Occurrences starting 02/29/2020 [place] Comment on above: Release Upon Orderin g for 1 Occurrences starting 02/29/2020 End: 04-14-2019 US OB Transvaginal US OB Transvaginal Imaging Routine Amenorrhea 1 Occurrences starting 04/14/2019 until 04/14/2019 [place] Comment on above: 1 Occurrences starti ng 04/14/2019 until 04/14/2019 US OB Transvaginal US OB Transva ginal Imaging Routine Amenorrhea 04/14/2019 2:44 PM EST [place] Immunizations Immunization Date Immunization Notes Care Provider Nata storey 12-16-2021 tetanus toxoid, redu jameson diphtheria toxoid, and acellular pertussis vaccine, adsorbed Sulema Teran DO Work Phone: [facility] 11-02-2019 diphtheria, tetanus toxoids and acellular pertussis vaccine, unspecified formulation Rj Aguilar [place], [place] 01-22-2017 tetanus toxoid, redu jameson diphtheria toxoid, and acellular pertussis vaccine, adsorbed Jose F ANN [facility] Comment on above: Reason for Medicatio n: Other (see comment) 11-30-2009 tetanus toxoid, redu jameson diphtheria toxoid, and acellular pertussis vaccine, adsorbed Tip Antunez [facility] 10-04-2000 measles, mumps and rubella virus vaccine Rebecca Gonzalez DO [facility] Work Phone: Payers Date Payer Category Payer Medicaid [employer] [facility] O [id number] 2023-Present [phone] [address] [place] [address] [id number] 2021 Unknown , [id number] 2017 Unknown [id number] 2016 Unknown [facility] MEDICA[facility] xxxxxxxxxxx 2016-Present [phone] CLAIMS DEPARTMENT [address] [place] [address] xxxxxxxxxxx [id number] 2016 Unknown [id number]. [id number] 1987 Unknown [id number] [id number] 1987 Unknown [id number] [id number] 1987 Unknown [id number] [id number] 1987 Unknown [id number] [id number] 1987 Unknown [id number] [id number] 1987 Unknown [id number] [id number] 1987 Unknown [id number] [id number] 1987 Unknown [id number] 2.16.840.1.987635.3.579.2.727 1987 Unknown [id number] [id number] 1987 Unknown [id number] [id number] 1987 Unknown [id number] 2.16.840.1.379150.3.579.2.1259 1987 Unknown [id number] 2.16.840.1.581285.3.579.2.1259 1987 Unknown [id number] [id number] 1987 Unknown [id number] [id number] 1987 Unknown [id number] Social History Date Type Detail Facility Start: 09-30-2018 End: 03-18-2023 Tobacco smoking status NHIS Current every day smoker [facility] History of tobacco use Cigarette Smoker [place], [place] Start: 09-30-2018 End: 03-18-2023 Cigarettes smoked current (pack per day) - Reported [place], [place] Start: 09-30-2018 End: 03-18-2023 Alcohol intake No [facility] Start: 1987 Sex Assigned At Not on file [place] Start: 04-07-2019 End: 04-11-2022 Alcohol intake Current non-drinker of alcohol (finding) [place], [place] Start: 02-19-2019 [place], [place] Exposure to SARS-CoV -2 (event) Unable to assess [place] Start: 11-03-2019 End: 08-29-2021 Tobacco use and exposure Never used [place], [place] Start: 08-11-2021 End: 04-11-2022 Exposure to SARS-CoV-2 (event) Not sure [place] Start: 08-04-2020 End: 04-09-2022 History 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 [employer] Phone: Start: 08-04-2020 End: 04-09-2022 History 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 [employer] Phone: Start: 1985 Sex Assigned At Female B ON [employer] Start: 10-18-2021 End: 12-16-2021 Exposure to SARS-CoV-2 (event) Yes [facility] [employer] Start: 04-09-2022 History SDOH Transpo rt Non-Med 2 [facility] [employer] Phone: Start: 10-13-2017 Tobacco smoking status Heavy t obacco smoker (finding) [facility] Medical Equipment Procedure Code Equipment Code Equipment Origin al Text Equipment Identifier Dates fluorescein ophthalmic strip 1 mg [id number] Start: 09-30-2018 End: 09-30-2018 Clinical Notes 08-21-2021 to 01-11-2023 InstructionsAttachments Note Date & Type Note Facility 01-11-2023 Evaluation + Plan note Diagnostic Tests PendingHIV Screen 4th Generation wRfx 01/11/23Hepatitis B Surface Antigen 01/11/23RPR with Conf Rfx 01/11/23Rubella Antibody IgG 01/11/23HCV Antibody RFX to Quant PCR 01/11/23Urine Culture 01/11/23 [facility] 08-21-2021 Hospital Discharg e instructions Penny Ritter MD - 08/21/2021 Return to the Emergency Department immediately if you develop worsening symptoms, or you have any other concerns. Please follow up with your family doctor in 1-2 days. The following attachments cannot be sent through Care Everywhere.Gastritis (Montserratian)documented in this encounter [employer] Phone: Evaluation note Diagnosis Heart palpitations Palpitations documented in this encounter [employer] Phone: evaluation note* Diagnosis Dental abscess- Primary Periapical abscess without sinus documented in this encounter [employer] Phone: evaluation note* Diagnosis Acute gastritis without hemorrhage, unspecified gastritis type- Primary documented in this encounter [facility] [employer] Phone: evaluation note* Diagnosis Cellulitis of trunk, unspecified site of trunk- Primary documented in this encounter [facility] [employer] Phone: evallpnxww note* Diagnosis Bitten by mouse, initial encounter- Primary documented in this encounter [facility] [employer] Phone: evaluation note* Diagnosis Tonsillitis with exudate Acute tonsillitis documented in this encounter [facility] [employer] Phone: Hospital course Narrative No data available for this section [facility]* Attachments The following attachments cannot be sent through Care Everywhere. * Tooth: Abscessed (Montserratian) [facility] [employer] Phone: Hospital Discharge instructions* Attachments The following attachments cannot be sent through Care Everywhere. * Cellulitis (Montserratian) [facility] [employer] Phone: Hospital Discharge instructions* Attachments The following attachments cannot be sent through Care Everywhere. * Bites: Animal (Montserratian) [facility] [employer] Phone: Hospital Discharge instructions No data available for this section [facility]ructionsNot on filedocumented in this encounter [facility] No data available for this section [facility] Summary Purpose Family History No [...] FoundDocuments on File Type Date Recorded Patient Grappler Expl anation Advance Directives and Living Will Power of Virtual Reality Specialist Documents on File Type Date Recorded Patient Grappler Expl anation Advance Directives and Living Will Power of Virtual Reality Specialist Documents on File Type Date Recorded Patient Grappler Expl anation ACP-Advance Directive ACP-Power of Virtual Reality Specialist Latest Code Status on File Code Status Date Activated Date Inactivated Comments Full Code 11/02/2019 12:26 PM Full Code 11/02/2019 7:35 AM 11/02/2019 12:26 PM Latest Code Status on File Code Status Date Activated Date Inactivated Comments Full Code 11/02/2019 12:26 PM 11/04/2019 3:22 PM Documents on File Type Date Recorded Patient Grappler Expl anation ACP-Advance Directive ACP-Power of Virtual Reality Specialist Latest Code Status on File Code Status [...] * LEEP (LOOP ELECTROSURGICAL EXCISION PROCEDURE): POST-OP (UKRAINIAN) * Coronavirus Disease (COVID-19): General Info (Montserratian) documented in this encounter Assessments Diagnosis Pain [...] Rj Aguilar, DO [address] [place] [address] Status Reason Specialty Diagnoses / Procedures Referre d By Contact Referred To Contact [facility]iology Diagnoses Amenorrhea Procedures US OB Transvaginal Rj Aguilar, DO [address] [place] [address] Status Reason Specialty Diagnoses / Procedures Referre d By Contact Referred To Contact [facility]iology Diagnoses Amenorrhea Procedures US OB TRANSVAGINAL Rj Aguilar, DO [address] [place] [address] Status Reason Specialty Diagnoses / Procedures Referred By Contact Referred To Contact Not Required - [facility] Diagnoses Amenorrhea Procedures US OB 14 Plus Weeks Single or First Gestation HC US OB GREATER THAN 14 WEEKS SINGLE FETUS Rj Aguilar, DO [address] [place] [address] Status Reason Specialty Diagnoses / Procedures Referre d By Contact Referred To Contact Closed Diagnoses Heart palpitations Procedures Holter Monitor 48 Hour Nikki Mcgovern PA-C [address] [place] [address] History of Present Illness * Rj Aguilar, [...] 50 mL IVPB (duplex), 2 g, Intravenous, Music Executive to OR, Rj Diaz DO meperidine (DEMEROL) [...] Once PRN, Junior Fuentes MD 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 DATE CREATED AUTHOR AUTHOR'S ORGANIZ ATION 12/04/2021 [facility] DATE CREATED AUTHOR AUTHOR'S ORGANIZ ATION 07/31/2022 [facility] DATE CREATED AUTHOR AUTHOR'S ORGANIZ ATION 01/31/2023 Gallego Syed [facility] ical Center DATE CREATED AUTHOR AUTHOR'S ORGANIZ ATION 03/25/2023 [facility] DATE CREATED AUTHOR AUTHOR'S ORGANIZ ATION 04/02/2023 [facility] dical Specialists EPIC Reason for [...] Rj Aguilar DO [address] [place] [address] Status Reason Specialty Diagnoses / Procedures Referred By Contact Referred To Contact Not Required - [facility] Radiology Diagnoses Amenorrhea Procedures US OB 14 Plus Weeks Single or First Gestation HC US OB GREATER THAN 14 WEEKS SINGLE FETUS Rj Aguilar, DO [address] [place] [address] Reason Comments Other Scheduled C/S Status Reason Specialty Diagnoses / Procedures Referre d By Contact Referred To Contact Diagnoses Status post repeat low transverse section repeat Procedures [place] DELIVERY ONLY SECTION Rj Aguilar, DO [address] [place] [address] [facility] Status Reason Specialty Diagnoses / Procedures Re ferred By Contact Referred To Contact Diagnoses HGSIL Pap smear of anus HGSIL Procedures [place] COLPOSCOPY,ENTIRE VAGINA LOOP ELECTROSURGICAL EXCISION PROCEDURE COLPOSCOPY, ECC (PAT ON ADMIT) RAPID COVID Rj Aguilar, DO [address] [place] [address] [facility] Status Reason Specialty Diagnoses / Procedures Referre d By Contact Referred To Contact Closed Diagnoses Heart palpitations Procedures Holter Monitor 48 Hour Nikki Mcgovern PA-C [address] [place] [address] Reason Comments Dental Pain right upper gum [...] 28 capsule 0 10/28/2021 11/04/2021 nystatin (MYCOSTATIN) [id number] UNIT/GM powder Apply topically 2 times daily [...] Care Teams (unrecognized sec tion and content) Clinic Cma Relationship Specialty Start Date End Date Nikki Mcgovern PA-C PCP - General 03/29/15 Clinic Cma Relationship Specialty Start Date End Date Nikki Mcgovern PA-C PCP General 03/29/15 Clinic Cma Relationship Specialty Start Date End Date Nikki Mcgovern PA-C [facility] 03/29/15 Clinic Cma Relationship Specialty Start Date End Date Nikki Mcgovern PA-C [facility] 03/29/15 FOR RECORDS PERTAINING TO PATIENTS [...] BE BASED ON THE PRIMARY CLINICAL RECORDS. [facility] [employer], [facility]. provides no warranty or guarantee of the accuracy or completeness of information in this document.
[2023-04-22] MEDS: 0.9 % SODIUM CHLORIDE 1,000 ML 1000 ML IV ×2 (06:35→07:15)
[2023-04-22 06:51] LABS: Basophils Percent Auto 0.3 % (0.2-2.0); Eosinophils Absolute Auto 0.4 10^3/uL (0.0-0.7); Eosinophils Percent Auto 2.4 % (0.9-7.0); Hematocrit 33.3 % (36.0-48.0); Hemoglobin 10.9 g/dL (12.0-16.0); Immature Granulocytes Abs Auto 0.13 10^3/uL (0.00-0.03); Immature Granulocytes Pct Auto 0.8 % (0.0-0.5); Lymphocytes Absolute Auto 2.6 10^3/uL (1.2-3.8); Lymphocytes Percent Auto 16.6 % (20.5-60.0); Mean Corpuscular HGB Conc 32.7 g/dL (29.9-35.2); Mean Corpuscular Hemoglobin 31.5 pg (26.7-34.0); Mean Corpuscular Volume 96.2 fL (81.0-99.0); Mean Platelet Volume 9.7 fL (9.5-13.5); Monocytes Absolute Auto 0.9 10^3/uL (0.3-0.8); Monocytes Percent Auto 5.6 % (1.7-12.0); Neutrophils Absolute Auto 11.8 10^3/uL (1.4-6.5); Neutrophils Percent Auto 74.3 % (43.0-75.0); Platelet Count 355 10^3/uL (150-450); Red Blood Count 3.46 10^6/uL (4.20-5.40); Red Cell Distribution Width 13.5 % (11.0-15.0); White Blood Count 15.9 10^3/uL (4.0-11.0)
[2023-04-22 07:02] LABS: Amphetamine Screen Urine NEGATIVE (NEGATIVE); Barbiturates Screen Urine NEGATIVE (NEGATIVE); Benzodiazepines Screen Urine NEGATIVE (NEGATIVE); Buprenorphine Screen Urine NEGATIVE (NEGATIVE); Cannabinoid Screen Urine NEGATIVE (NEGATIVE); Cocaine Screen Urine NEGATIVE (NEGATIVE); Methadone Screen Urine NEGATIVE (NEGATIVE); Methamphetamines Screen Urine NEGATIVE (NEGATIVE); Opiate Screen Urine NEGATIVE (NEGATIVE); Oxycodone Screen Urine NEGATIVE (NEGATIVE); Phencyclidine Screen Urine NEGATIVE (NEGATIVE); Tricyclic Antidepressant Urine NEGATIVE (NEGATIVE)
[2023-04-22] MEDS: CEFAZOLIN SODIUM/DEXTROSE,ISO 2 GM/50 ML PIGGYBACK IV ×2 (07:13→15:15)
[2023-04-22] MEDS: CITRIC ACID/SODIUM CITRATE 30 ML SOLUTION ORACIT SHOHL'S SOLN PO (07:14)
[2023-04-22] MEDS: FAMOTIDINE/PF 20 MG/2 ML VIAL IV (07:14)
[2023-04-22] MEDS: METOCLOPRAMIDE HCL 10 MG/2 ML VIAL IVP (07:15)
[2023-04-22] MEDS: LACTATED RINGER'S SOLUTION 1,000 ML 50 ML IV (08:10)
--- NOTE | 2023-04-22 08:27 | P.ON_ITS ---
Brief Operative Note Date of procedure: 04/22/23 Pre-op diagnosis: desires permanent sterilization, iup @38 3/7wks, previous c/s times 4 Post-op diagnosis: same as pre-op Procedure: NAME OF PROCEDURE: [ section with bilateral salpingectomy ] PROCEDURE: Patient was taken back to the Operating Room where she was given a spinal anesthesia with Duramorph without difficulty. She was prepped and draped in the normal sterile fashion. A Pfannenstiel skin incision was then made 2?cm above the symphysis pubis and carried down to underlying rectus fascia using a Bovie. The fascia was incised in the midline and extended laterally using Pan scissors. Two Asher clamps were placed on the superior aspect of the fascia and dissected off the underlying rectus muscles. The same was performed on the inferior aspect as well. The muscles were then in the midline. Peritoneum was identified and entered bluntly. The peritoneum was then extended superiorly and inferiorly with good visualization of the bladder. The bladder blade was inserted. Vesicouterine peritoneum was identified, tented up, and entered with Metzenbaum scissors. A bladder flap was then created digitally. The bladder blade was reinserted. A low transverse incision was made on the pat ient's uterus and extended laterally digitally. The infant was then delivered atraumatically after the bladder blade was removed in the cephalic position. The cord was clamped and cut. Cord blood was obtained. The infant was handed off to awaiting team. The patient's placenta was spontaneously delivered. The uterus was then exteriorized. The uterus was cleared of all clots and debris. The bladder blade was reinserted. The patient's uterine incision was closed using #0 Vicryl in a running lock fashion. Excellent hemostasis was assured.? The rt tube was identified and grasped with babock, the ligasure was used to transect and ligate the tube in its entirity, this was done on the contralateral side as well. The uterus was then returned to the patient's abdomen. The patient's abdomen was copiously irrigated using warm saline. Peritoneal gutters were cleared of all clots and debris. Again excellent hemostasis was assured. The patient's fascia was closed using #0 Vicryl in a running fashion. The patient's skin was closed using 4-0 Vicryl subcuticularly. The patient tolerated the procedure well. Sponge, lap, and needle counts were correct x2. The patient was taken to the Recovery Room in stable condition. Anesthesia: spinal Surgeon: Jose F Meza Psychological Examiner: Luisa Diaz Estimated blood loss (mL): 575 Pathology: other (lt tube and partial rt tube) Condition: stable Disposition: PACU Urinary Catheter Management Urinary Catheter Management Urethral: Cath placed during this visit: no
--- NOTE | 2023-04-22 08:29 | PM.OBPRCCS ---
Procedure Pre-op/Post-op diagnoses: Pre-Op/Post-Op Diagnoses Operation Date: 04/22/23 07:30 <No data on this case meets the specified criteria> Procedure: Procedures Operation Date: 04/22/23 07:30 Actual Procedure Side Surgeon p Repeat with Left Salpingectomy, Right Partial Salpingectomy Bilateral Jose F Meza DO Porcelain Waxer: Luisa Diaz Estimated blood loss (mL): 575 Disposition: PACU Anesthesia type: None
[2023-04-22] MEDS: OXYTOCIN/0.9 % SODIUM CHLORIDE 20 UNITS/1,000 ML PLAST..BAG 200 UNIT IV (08:50)
[2023-04-22] MEDS: KETOROLAC TROMETHAMINE 30 MG/ML VIAL IVP ×2 (15:16→22:17)
--- NOTE | 2023-04-22 16:06 | RESP.RT ---
done per nursing
--- NOTE | 2023-04-22 19:22 | W.PC.ACHO ---
Registration Status: ADM IN Primary Language: Preferred Language: Faroese Active Medications Generic Name Dose Route Start Last Admin Trade Name Freq PRN Reason Stop Dose Admin Al Hydroxide/Mg Hydroxide 2,400 mg 04/22/23 08:29 Magnesium Hydroxide 2,400 Mg/10 Ml Oral.Susp PO Q6H PRN Dyspepsia Diphenhydramine HCl 25 mg 04/22/23 08:29 Diphenhydramine Hcl 50 Mg/Ml (1ml) Vial IV 04/23/23 08:31 Q6H PRN Itching Diphtheria/Pertussis/Tetanus Vacc 0.5 ml 04/24/23 09:00 Adacel Diph,Pertuss(Acell),Tet Vac/Pf 0.5 Ml Adult Syringe IM 04/24/23 09:01 .ONCE ONE Docusate Sodium 100 mg 04/23/23 09:00 Docusate Sodium 100 Mg Capsule PO BID ALEXANDRO Enoxaparin Sodium 40 mg 04/22/23 20:00 Enoxaparin Sodium 40 Mg/0.4 Ml Syringe SUBQ Q24H ALEXANDRO Sodium Chloride 1,000 mls @ 125 mls/hr 04/22/23 06:00 04/22/23 07:15 Sodium Chloride 0.9% 1,000 Ml IV Infused .Q8H ALEXANDRO Infusion Sodium Chloride 1,000 mls @ 125 mls/hr 04/22/23 08:30 Sodium Chloride 0.9% 1,000 Ml IV .Q8H ALEXANDRO Promethazine HCl 25 mg/ Sodium 51 mls @ 204 mls/hr 04/22/23 08:29 Chloride IV Q6H PRN Nausea And Vomiting Lactated Ringer's 1,000 mls @ 50 mls/hr 04/22/23 12:00 04/22/23 08:10 Lactated Ringers IV 50 mls/hr .Q20H ALEXANDRO Administration Ibuprofen 800 mg 04/22/23 08:29 Ibuprofen 400 Mg Tablet PO Q8H PRN Pain Ketorolac Tromethamine 30 mg 04/22/23 08:29 04/22/23 15:16 Ketorolac Tromethamine 30 Mg/Ml Vial IVP 04/24/23 08:30 30 mg Q6H PRN Administration Pain Measles/Mumps/Rubella Vaccine Live 0.5 ml 04/24/23 09:00 Measles,Mumps,Rubella Vacc/Pf 0.5 Ml Vial SQ 04/24/23 09:01 .ONCE ONE Ondansetron HCl 4 mg 04/22/23 08:29 Ondansetron Pf 4 Mg/2 Ml Vial IV Q6H PRN Nausea And Vomiting Ondansetron HCl 4 mg 04/22/23 08:29 Ondansetron 4 Mg Rapdis Tablet PO Q6H PRN Nausea And Vomiting Oxycodone/Acetaminophen 2 tab 04/22/23 08:29 Oxycodone Hcl/Acetaminophen 5mg/325mg PO Q4H PRN Pain Scale 7-10 Senna 17.2 mg 04/22/23 20:00 Sennosides 8.6 Mg Tablet PO QHS PRN Constipation Simethicone 80 mg 04/22/23 08:29 Simethicone 80 Mg Tab.Chew PO QID PRN Abdominal Distention Diet Category Date Time Status Regular Consistency Diet Diet 04/22/23 08:30 Active Consults Category Date Time Status Consult to Anesthesiology Routine Cons 04/22/23 Ordered IV Insertion/Site Date of IV Line Insertion [20g 04/22/23 right Forearm] IV Insertion Time [20g right 06:20 Forearm] Neurology Patient orientation (short person,place,time,situation list) Respiratory Lung sounds [Throughout] clear Lung sounds [Throughout] clear Lung sounds [Throughout] clear Oxygen Delivery Method Room Air Oxygen Delivery Method Room Air Oxygen Delivery Method Room Air Oxygen Delivery Method Room Air Oxygen Delivery Method Room Air Bowels Bowel Pattern No Bowel Movement Catheter Urinary Catheter Date of 04/22/23 Insertion [Urethral] Urinary Catheter Date of 04/22/23 Insertion [Urethral] Urinary Catheter Date of 04/22/23 Insertion [Urethral] Date Urinary Catheter Removed 04/22/23 [Urethral] Date Urinary Catheter Removed 04/22/23 Time Urinary Catheter 17:00 Discontinued [Urethral]
[2023-04-22] MEDS: ENOXAPARIN SODIUM 40 MG/0.4 ML SYRINGE SUBQ (22:17)
[2023-04-23] VITALS (7 sets, daily range): BP systolic 103–120; BP diastolic 56–58; PULSE 68–78; RESP 12–18; TEMP 36.6–36.8; O2SAT 98
[2023-04-23] MEDS: KETOROLAC TROMETHAMINE 30 MG/ML VIAL IVP (05:01)
[2023-04-23 06:22] LABS: Basophils Percent Auto 0.2 % (0.2-2.0); Eosinophils Absolute Auto 0.3 10^3/uL (0.0-0.7); Eosinophils Percent Auto 2.1 % (0.9-7.0); Hematocrit 30.5 % (36.0-48.0); Hemoglobin 9.8 g/dL (12.0-16.0); Immature Granulocytes Abs Auto 0.08 10^3/uL (0.00-0.03); Immature Granulocytes Pct Auto 0.5 % (0.0-0.5); Lymphocytes Absolute Auto 2.8 10^3/uL (1.2-3.8); Lymphocytes Percent Auto 17.1 % (20.5-60.0); Mean Corpuscular HGB Conc 32.1 g/dL (29.9-35.2); Mean Corpuscular Hemoglobin 31.5 pg (26.7-34.0); Mean Corpuscular Volume 98.1 fL (81.0-99.0); Mean Platelet Volume 9.7 fL (9.5-13.5); Monocytes Absolute Auto 0.7 10^3/uL (0.3-0.8); Monocytes Percent Auto 4.5 % (1.7-12.0); Neutrophils Absolute Auto 12.1 10^3/uL (1.4-6.5); Neutrophils Percent Auto 75.6 % (43.0-75.0); Platelet Count 317 10^3/uL (150-450); Red Blood Count 3.11 10^6/uL (4.20-5.40); Red Cell Distribution Width 13.6 % (11.0-15.0); White Blood Count 16.1 10^3/uL (4.0-11.0)
--- NOTE | 2023-04-23 07:51 | P.OBPN_ITS ---
OB - PN: Subj Subjective Patient comments: no complaints [place] status: doing well and bottle feeding status: exclusively bottle feeding Exam Constitutional Vital Signs, click to edit/add: Last Vital Signs Temp 97.9 F 04/23/23 04:30 Pulse 68 04/23/23 04:32 Resp 12 04/23/23 04:30 BP 103/58 04/23/23 04:32 O2 Del Method Room Air 04/23/23 04:30 Documenting provider has reviewed patient's vital signs: yes Common normals: no apparent distress HENMT Common normals: normocephalic Eye Common normals: EOMs intact bilaterally Neck & C-Spine Common normals: full ROM Lymph Lymphatic: no lymphadenopathy noted Chest Common normals: inspection of chest normal Respiratory Common normals: normal respiratory effort Effort & inspection: able to speak in complete sentences Auscultation: clear to auscultation bilaterally Cardio Common normals: regular rate and regular rhythm Rate: regular rate Rhythm: regular rhythm GI Common normals: Normal to inspection, nondistended, normoactive bowel sounds present Inspection: normal to inspection Auscultation: normoactive bowel sounds Palpation: soft Common normals: no CVA tenderness Back & Pelvis Common normals: no CVA tenderness Extremity Common normals: normal to inspection Neuro Maxine Coma Scale: document GCS findings Common normals: oriented x3 Sensorium/orientation: awake, alert, oriented to person, oriented to place and oriented to time Psych Common normals: mental status grossly normal Attitude: calm Speech: normal speech Thought process: normal thought process Results Labs Labs: Short CBC 04/23/23 Range/Units 05:42 WBC 16.1 H (4.0-11.0) 10^3/uL Hgb 9.8 L (12.0-16.0) g/dL Hct 30.5 L (36.0-48.0) % Plt Count 317 (150-450) 10^3/uL Urinary Catheter Management Urinary Catheter Management Urethral: Cath placed during this visit: yes, but has since been removed by the nurse Insertion date: 04/22/23 Removal date: 04/22/23 Removal time: 17:00 OB - PN: A/P Plan - Plan: routine postop care Time Spent with Patient Time: Total time spent is greater than 50% in coordination of care (as documented) at patient's floor/unit and/or counseling patient: Total time spent with greater than 50% in coordination of care (as documented) at patient's floor/unit and/or counseling patient: less than 15 minutes
--- NOTE | 2023-04-23 08:07 | PC.NURSE ---
RN reviews Artemio VELÁZQUEZ charting, RN agrees with charting
[2023-04-23] MEDS: DOCUSATE SODIUM 100 MG CAPSULE PO ×2 (11:47→20:52)
[2023-04-23] MEDS: IBUPROFEN 400 MG TABLET 800 MG PO ×2 (11:47→20:52)
[2023-04-23] MEDS: OXYCODONE HCL/ACETAMINOPHEN 5MG/325MG 2 TAB PO (22:02)
[2023-04-23] MEDS: SIMETHICONE 80 MG TAB.CHEW PO (23:10)
[2023-04-23] MEDS: ENOXAPARIN SODIUM 40 MG/0.4 ML SYRINGE SUBQ (23:10)
[2023-04-24] MEDS: IBUPROFEN 400 MG TABLET 800 MG PO (04:44)
--- NOTE | 2023-04-24 07:23 | PM.OBPN ---
OB - PN: Subj Subjective Patient comments: no complaints and pain well controlled [place] status: doing well Exam Constitutional Vital Signs, click to edit/add: Last Vital Signs Temp 98.3 F 04/23/23 23:24 Pulse 78 04/23/23 23:24 Resp 18 04/23/23 23:24 BP 114/56 04/23/23 23:24 Pulse Ox 98 04/23/23 18:08 O2 Del Method Room Air 04/23/23 18:08 Documenting provider has reviewed patient's vital signs: yes Common normals: no apparent distress Respiratory Common normals: normal respiratory effort and clear to auscultation bilaterally Cardio Common normals: regular rate and regular rhythm GI Common normals: Normal to inspection, nondistended, normoactive bowel sounds present Extremity Common normals: no clubbing, cyanosis or edema and no calf tenderness Urinary Catheter Management Urinary Catheter Management Urethral: Cath placed during this visit: yes, but has since been removed by the nurse Insertion date: 04/22/23 Removal date: 04/22/23 Removal time: 17:00 OB - PN: A/P Plan - day: 2 Plan: routine postop care, discharge home and other (1wk) Time Spent with Patient Time: Total time spent is greater than 50% in coordination of care (as documented) at patient's floor/unit and/or counseling patient: Total time spent with greater than 50% in coordination of care (as documented) at patient's floor/unit and/or counseling patient: less than 15 minutes
[2023-04-24 07:29] VITALS: BP 113/58; PULSE 81
[2023-04-24] MEDS: SIMETHICONE 80 MG TAB.CHEW PO (07:40)
[2023-04-24] MEDS: DOCUSATE SODIUM 100 MG CAPSULE PO (07:41)
[2023-04-24 08:10] VITALS: RESP 18
--- NOTE | 2023-04-24 11:00 | DS_ITS ---
DISCHARGE DATE: ??04/24/2023 PRIMARY DIAGNOSES: 1.? Intrauterine at 38 and 3/7 weeks. 2.? Previous x4. 3.? Desires permanent sterilization. 4.? Significant lower abdominal pain, could be suspicious for uterine rupture. PROCEDURE:? Repeat section with left salpingectomy, right partial salpingectomy. HOSPITAL COURSE:? As expected.? Please see chart for full details.? LABORATORY DATA:? Please see chart. COMPLICATIONS:? None. DISCHARGE CONDITION:? Stable. CONSULTATION:? Anesthesia. DISCHARGE INSTRUCTIONS: 1.? Diet:? Regular. 2.? Medications: a.? Percocet 5/325 one to two p.o. every 4-6 hours p.r.n. pain. b.? Motrin 800 one p.o. every 8 hours p.r.n. pain. 3.? Followup in one week. Restrictions:? Pelvic rest for 6 weeks.? No heavy lifting.? May drive when pain free and no longer on narcotics. MTDD
== END 2023-04-24 11:00 | disposition home or self-care (01) | DRG 539 ==
PROVIDERS: Admitting Provider Obstetrics & Gynecology; Visit Provider Obstetrics & Gynecology
PROC: 0UT70ZZ Resection of Bilateral Fallopian Tubes, Open Approach (ICD-10-PCS; CPT 59514; principal; 2023-04-22 07:30)
DX: O34.219 Maternal care for unspecified type scar from previous cesarean delivery (principal); O26.843 Uterine size-date discrepancy, third trimester; O99.334 Smoking (tobacco) complicating childbirth; F17.210 Nicotine dependence, cigarettes, uncomplicated; Z3A.38 38 weeks gestation of pregnancy; Z37.0 Single live birth
CPT/HCPCS: 36415; 59025; 80307; 85025; 86850; 86900; 86901; 88302; 94667; 94668; 96372; 96374; 96375; 96376